=== PATIENT | male | born 1935 | race Native Hawaiian/Other Pacific Islander ===

== ENCOUNTER 2016-08-26 12:18 | Inpatient (IN) | payer MEDICARE, OTHER ==
[2016-08-26] MEDS ORDERED: Sodium Chloride 0.9% 1,000 ML IV STA (12:30)
--- NOTE | 2016-08-26 12:30 | ED PDOC ---
Arrival/HPI - General Time Seen by Provider: 08/26/16 12:23 Historian: Patient - Critical Care Critical Care Minutes: 90 minutes - History of Present Illness Narrative History of Present Illness (Text): 08/26/16 12:23 Corbin Zheng is an 81 year old male, whose past medical history include TIA and cardiac stents, who presents to the emergency department for apparent left- sided weakness noted by son. Patient was normal last night. According to the plastic frame inserter, patient said his left sided weakness which started around 07:00 this morning. Patient will not say when GI bleeding started. Patient is disoriented to time. On the phone, patient's son states that patient's weakness started 7 months ago. Patient's son called patinet at 07:00 this morning and when patient did not answer, Patient's son went to patient's house and found him laying on the floor, unable to get up. At present, Patient denies any pain. PMD: Dr. Christin Parson Symptom Onset: Gradual Symptom Course: Worsening Severity Level: Mild Activities at Onset: Light Context: Home Past Medical History - Provider Review Nursing Documentation Reviewed: Yes - Infectious Disease Hx of Infectious Diseases: None - Cardiac Hx Hypertension: Yes - Neurological HX Cerebrovascular Accident: Yes (recent, with L sided weakness) - Endocrine/Metabolic Hx Diabetes Mellitus Type 1: Yes - Musculoskeletal/Rheumatological Hx Falls: Yes - Genitourinary/Gynecological Other/Comment: BPH - Psychiatric Hx Substance Use: No - Surgical History Hx Carotid Endarterectomy: Yes - Anesthesia Hx Anesthesia Reactions: No Hx Malignant Hyperthermia: No - Suicidal Assessment Feels Threatened In Home Enviroment: No Family/Social History - Physician Review Nursing Documentation Reviewed: Yes Family/Social History: No Known Family HX Smoking Status: Former Smoker Hx Alcohol Use: Yes Hx Substance Use: No Allergies/Home Meds Allergies/Adverse Reactions: Allergies No Known Allergies Allergy (Verified 08/26/16 14:47) Home Medications: Home Meds Medication Instructions Recorded Confirmed Amlodipine Besylate 0 mg PO DAILY 03/02/16 08/26/16 Atorvastatin [Lipitor] 40 mg PO DAILY 03/02/16 08/26/16 Eltrombopag Olamine [Promacta] 75 mg PO DAILY 03/02/16 05/12/16 Lisinopril [Zestril] 0 mg PO 04/15/17 Review of Systems - Review of Systems Constitutional: Other (Left sided weakness) Eyes: absent: Vision Changes ENT: absent: Hearing Changes Respiratory: absent: SOB Cardiovascular: absent: Chest Pain Gastrointestinal: absent: Abdominal Pain Genitourinary Male: absent: Urinary Output Changes Musculoskeletal: absent: Back Pain, Neck Pain Skin: absent: Rash Neurological: Gait Changes (Unable to ambulate) Endocrine: absent: Diaphoresis Hemo/Lymphatic: absent: Easy Bleeding Physical Exam Vital Signs Reviewed: Yes Vital Signs Temp Pulse Resp BP Pulse Ox 08/26/16 14:44 86 18 92/42 L 08/26/16 14:40 93.7 F L 85 19 92/42 L 08/26/16 14:25 93.8 F L 85 16 103/40 L 08/26/16 12:29 97.9 F 86 18 119/90 97 Temperature: Afebrile Blood Pressure: Normal Pulse: Regular Respiratory Rate: Normal Appearance: Positive for: Well-Appearing, Non-Toxic, Comfortable Pain Distress: None Mental Status: Positive for: Alert and Oriented X 3 - Systems Exam Head: Present: Atraumatic, Normocephalic Pupils: Present: PERRL Extroacular Muscles: Present: EOMI Conjunctiva: Present: Other (conjunctival pallor) Mouth: Present: Moist Mucous Membranes Neck: Present: Normal Range of Motion Respiratory/Chest: Present: Clear to Auscultation, Good Air Exchange. No: Respiratory Distress, Accessory Muscle Use Cardiovascular: Present: Regular Rate and Rhythm, Normal S1, S2. No: Murmurs Abdomen: Present: Normal Bowel Sounds. No: Tenderness, Distention, Peritoneal Signs Rectal: Present: Other (Hematochezia) Back: Present: Normal Inspection Upper Extremity: Present: Other (mild drift in left arm ) Lower Extremity: Present: Edema (2+ Pitting edema), Other (Unable to raise left leg off bed) Neurological: Present: GCS=15, CN II-XII Intact, Speech Normal Skin: No: Normal Color (mottled skin) Psychiatric: Present: Alert, Oriented x 3, Normal Insight, Normal Concentration Medical Decision Making ED Course and Treatment: EKG: Ordered, reviewed, and independently interpreted the EKG. Rate : 86 BPM Rhythm : NSR Interpretation : Nonspecific ST and T wave abnormality. No STEMI. 08/26/16 13:02 Reviewed Radiology, Chest X-ray which shows improved right lower lobe opacity from prior on 05/09/16. 08/26/16 13:39 Chest X-ray: Creator : Rashad Hughes MD FINDINGS: LUNGS:Resolution right lower lobe infiltrate. Haziness retrocardiac region. PLEURA:Left pleural effusion. CARDIOVASCULAR: No radiographic findings to suggest acute or significant cardiovascular disease. OSSEOUS STRUCTURES:No significant abnormalities. VISUALIZED UPPER ABDOMEN:Normal. OTHER FINDINGS:None. IMPRESSION:Left lower lobe infiltrate/left pleural effusion. 08/26/16 13:[address] Dillard, who recommends getting platelets from patient. 08/26/16 13:46 Case discussed with assistant purchasing manager to admit patient to ICU. 08/26/16 13:52 Dr. Dillard at Patient's Bedside. 08/26/16 13:50 Cardiology paged for high troponin 08/26/16 14:[address] Jay, Consultative Sales Associate, who is aware and agrees with present patient plan. Patient is not a candidate for cardiac catheterization. 08/26/16 15:[address]: Creator : HEIDI MOLINA Dictator : Chago Barraza MD FINDINGS: HEMORRHAGE:No acute parenchymal, subarachnoid or extra-axial hemorrhage. BRAIN: Mild chronic white matter ischemic changes with more localized of chronic infarct right posterior and frontal and parietal region. . Chronic infarct right superior coronal radiata and inferior centrum semiovale. Small chronic right cerebellar infarct Re- demonstrated is a right frontal arachnoid cyst with overlying scalloping of the internal table of the right frontal calvarium unchanged. . Vascular calcifications unchanged. Small calcification along the right tentorium on may be dural base. Possibility tiny meningioma cannot be excluded. VENTRICLES: Moderate -significant generalized volume loss. CALVARIUM: Other than scalloping of a localized area of the inner table right frontal calvarium overlying the arachnoid cyst calvarium is otherwise intact. . Questionable right frontal scalp swelling PARANASAL SINUSES: Mild mucosal thickening noted within a multiple ethmoid air cells. Moderate mucosal thickening right maxillary antrum with questionable small fluid level. MASTOID AIR CELLS:Unremarkable as visualized. No inflammatory changes. OTHER FINDINGS:Bilateral cataract surgery again noted IMPRESSION: Limited motion degraded study. No acute parenchymal, subarachnoid or extra- axial hemorrhage. No acute intracranial hemorrhage. Chronic infarct changes right posterior frontal and parietal region. There is also a chronic appearing infarct in the right coronal radiata and inferior centrum semiovale. Stable appearing right frontal arachnoid cyst. Moderate to significant generalized volume loss. Questionable right frontal scalp swelling. - Critical Care Critical Care Minutes: 90 minutes - Lab Interpretations Lab Results: 08/26/16 13:03 08/26/16 13:03 Lab Results 08/26/16 13:03: WBC 43.7 H* D, RBC 1.85 L, Hgb 5.7 L* D, Hct 16.8 L*, MCV 90.8, MCH 30.8, MCHC 33.9, RDW 16.2 H, Plt Count 591 H, MPV 13.1 H, Gran # 39.77 H, Neutrophils % (Manual) 88 H, Band Neutrophils % 3 H, Lymphocytes % (Manual) 2 L , Monocytes % (Manual) 4, Metamyelocytes % 2, Myelocytes % 1, Platelet Evaluation High, Large Platelets Present, Giant Platelets Present, Polychromasia 1+, Hypochromasia 2+, Poikilocytosis (manual 1+, Anisocytosis ( manual) 1+, Ovalocytes 1+, PT 12.7 H, INR 1.18 H, APTT 32.7 H, Sodium 137, Potassium 5.8 H* D, Chloride 108 H, Carbon Dioxide 9 L D, Anion Gap 26 H, BUN 83 H, Creatinine 4.5 H, Est GFR ( Amer) 15, Est GFR (Non-Af Amer) 13, Random Glucose 168 H, Calcium 7.9 L, Total Bilirubin 0.4, AST 156 H, ALT 51, Alkaline Phosphatase 68, Troponin I 123.00 H* D, Total Protein 5.1 L, Albumin 2.4 L, Globulin 2.7, Albumin/Globulin Ratio 0.9 L, Blood Type O POSITIVE, Antibody Screen Negative, Crossmatch See Detail, BBK History Checked Patient has bt - RAD Interpretation Radiology Orders: 08/26/16 12:30 CHEST PORTABLE [RAD] Stat 08/26/16 13:12 HEAD W/O CONTRAST [CT] Stat - Medication Orders Current Medication Orders: Cefepime HCl (Maxipime 1gm) 100 mls @ 100 mls/hr IVPB Q12 YUVAL PRN Reason: Protocol Metronidazole (Flagyl) 100 mls @ 100 mls/hr IVPB Q8 YUVAL PRN Reason: Protocol Sodium Bicarbonate 75 meq/ (Sodium Chloride) 1,075 mls @ 75 mls/hr IV .[id number] YUVAL Vancomycin HCl (Vancomycin 1gm) 250 mls @ 167 mls/hr IVPB DAILY YUVAL PRN Reason: Protocol Stop: 08/26/16 16:30 Pantoprazole Sodium (Protonix Inj) 40 mg IVP Q12 YUVAL Discontinued Medications Albuterol Sulfate (Albuterol 0.5% Inhal Mariluz (5 Mg/ Ml) 20 Ml) 10 mg IH STAT STA Stop: 08/26/16 13:41 Last Admin: 08/26/16 14:42 Dose: 10 MG Dextrose (Dextrose 50% Inj) 50 ml IVP STAT STA Stop: 08/26/16 13:39 Last Admin: 08/26/16 14:40 Dose: 50 ML IVP Administration Document 08/26/16 14:40 HI (Rec: 08/26/16 14:41 [place] [id number]) Charges for Administration # of IVP Administrations 1 Sodium Chloride (Sodium Chloride 0.9%) 1,000 mls @ 999 mls/hr IV .Q1H1M STA Stop: 08/26/16 13:30 Last Admin: 08/26/16 13:00 Dose: 999 MLS/HR eMAR Start Stop Document 08/26/16 13:00 HI (Rec: 08/26/16 13:00 [place] [id number]) Intravenous Solution Start Date 08/26/16 Start Time 13:00 Pantoprazole Sodium (Protonix 40mg Ivpb) 100 mls @ 20 mls/hr IVPB .Q5H YUVAL Pantoprazole Sodium (Protonix 40mg Ivpb) 100 mls @ 10 mls/hr IVPB .Q10H YUVAL Last Admin: 08/26/16 14:42 Dose: 10 MLS/HR eMAR Start Stop Document 08/26/16 14:42 HI (Rec: 08/26/16 14:43 [place] [id number]) Intravenous Solution Start Date 08/26/16 Start Time 14:43 Vancomycin HCl (Vancomycin 1gm) 250 mls @ 167 mls/hr IVPB DAILY YUVAL PRN Reason: Protocol Insulin Human Regular (Humulin R) 10 units IV STAT STA Stop: 08/26/16 13:39 Last Admin: 08/26/16 14:41 Dose: 10 UNITS Subcutaneous Admin in ER Document 08/26/16 14:41 HI (Rec: 08/26/16 14:41 HI [id number]) Injection Site MAR Injection Site Left Abdomen eMAR Start Stop Document 08/26/16 14:41 HI (Rec: 08/26/16 14:41 HI [id number]) Intravenous Solution Start Date 08/26/16 Start Time 14:41 Pantoprazole Sodium (Protonix Inj) 80 mg IVP STAT STA Stop: 08/26/16 13:13 Last Admin: 08/26/16 14:42 Dose: 80 MG IVP Administration Document 08/26/16 14:42 HI (Rec: 08/26/16 14:42 HI [id number]) Charges for Administration # of IVP Administrations 1 - Scribe Statement The provider has reviewed the documentation as recorded by the Daniaibdwain Stanford Provider Scribe Attestation: All medical record entries made by the Scribe were at my direction and personally dictated by me. I have reviewed the chart and agree that the record accurately reflects my personal performance of the history, physical exam, medical decision making, and the department course for this patient. I have also personally directed, reviewed, and agree with the discharge instructions and disposition. Disposition/Present on Arrival - Present on Arrival Any Indicators Present on Arrival: Yes History of DVT/PE: No History of Uncontrolled Diabetes: Yes Urinary Catheter: No History Surgical Site Infection Following: None - Disposition Have Diagnosis and Disposition been Completed?: Yes Diagnosis: GI bleed, Hyperkalemia, [place]YS[place] (acute kidney injury), Elevated troponin Disposition: HOSPITALIZED Disposition Time: 14:15 Patient Problems: Current Active Problems Problem Status Diagnosed [place]YS[place] (acute kidney injury) Acute Elevated troponin Acute GI bleed Acute Hyperkalemia Acute Condition: CRITICAL
[2016-08-26 13:10] LABS: MEAN CELL VOLUME 90.8 fL (80.0-105.0); MEAN CORPUSCULAR HEMOGLOBIN 30.8 pg (25.0-35.0); MEAN CORPUSCULAR HGB CONC 33.9 g/dl (31.0-37.0); MEAN PLATELET VOLUME 13.1 fl (7.0-11.0); PLATELET COUNT 591 [, 10^3/uL] (120.0-450.0); RED CELL DISTRIBUTION WIDTH 16.2 % (11.5-14.5)
[2016-08-26] MEDS ORDERED: Pantoprazole 40mg/100ml IVPB 100 ML IVPB SCH ×2 (13:15→14:04)
[2016-08-26 13:17] LABS: ADD MANUAL DIFF? YES; ALB/GLOB RATIO 0.9 (1.1-1.8); BILIRUBIN,TOTAL 0.4 mg/dL (0.2-1.3); CALCIUM 7.9 mg/dL (8.4-10.5); INR 1.18 (0.93-1.08); PARTIAL THROMBOPLASTIN TIME 32.7 Seconds (23.7-30.8); TOTAL PROTEIN 5.1 g/dL (5.8-8.3); WHITE BLOOD COUNT 43.7 [, 10^3/ul] (4.5-11.0)
[2016-08-26 13:18] LABS: HEMATOCRIT 16.8 % (42.0-52.0)
[2016-08-26 13:19] LABS: POTASSIUM 5.8 mmol/L (3.6-5.0)
--- NOTE | 2016-08-26 13:27 | RAD ---
HISTORY: Weakness. Technique: Single view portable semi erect @ 12:53. COMPARISON: 05/09/2016 FINDINGS: LUNGS: Resolution right lower lobe infiltrate. Haziness retrocardiac region. PLEURA: Left pleural effusion. CARDIOVASCULAR: No radiographic findings to suggest acute or significant cardiovascular disease. OSSEOUS STRUCTURES: No significant abnormalities. VISUALIZED UPPER ABDOMEN: Normal. OTHER FINDINGS: None. IMPRESSION: Left lower lobe infiltrate/left pleural effusion.
[2016-08-26] MEDS ORDERED: Dextrose 50% SYRINGE Inj (50 ml) IVP STA (13:38)
[2016-08-26] MEDS ORDERED: Insulin Regular 1 UNITS/0.01 ML ML IV STA (13:38)
[2016-08-26] MEDS ORDERED: Albuterol 0.5% Inhal Sol (5 mg/ ml) 20 ml IH STA (13:40)
[2016-08-26 14:02] LABS: ANISOCYTOSIS 1+; BAND 3 % (0-2); GIANT PLATELETS PRESENT; GRAN # 39.77 (1.4-6.5); HYPOCHROMIA 2+; LARGE PLATELETS PRESENT; METAMYELOCYTE 2 %; MYELOCYTE 1 %; NEUTROPHIL 88 % (50.0-70.0); PLATELET ESTIMATE HIGH (NORMAL); POIKILOCYTOSIS 1+; POLYCHROMASIA 1+
[2016-08-26 14:03] LABS: OVALOCYTES 1+
--- NOTE | 2016-08-26 14:10 | CT ---
PROCEDURE: CT HEAD WITHOUT CONTRAST. HISTORY: fall? COMPARISON: Comparison made with CT scan brain 05/09/2016. TECHNIQUE: Axial computed tomography images were obtained through the head/brain without intravenous contrast. Radiation dose: Total exam DLP = 1704.39 MGy-cm. This CT exam was performed using one or more of the following dose reduction techniques: Automated exposure control, adjustment of the mA and/or kV according to patient size, and/or use of iterative reconstruction technique. Note that the examination is limited by motion artifact. FINDINGS: HEMORRHAGE: No acute parenchymal, subarachnoid or extra-axial hemorrhage. BRAIN: Mild chronic white matter ischemic changes with more localized of chronic infarct right posterior and frontal and parietal region. . Chronic infarct right superior coronal radiata and inferior centrum semiovale. Small chronic right cerebellar infarct Re- demonstrated is a right frontal arachnoid cyst with overlying scalloping of the internal table of the right frontal calvarium unchanged. . Vascular calcifications unchanged. Small calcification along the right tentorium on may be dural base. Possibility tiny meningioma cannot be excluded. VENTRICLES: Moderate -significant generalized volume loss. CALVARIUM: Other than scalloping of a localized area of the inner table right frontal calvarium overlying the arachnoid cyst calvarium is otherwise intact. . Questionable right frontal scalp swelling PARANASAL SINUSES: Mild mucosal thickening noted within a multiple ethmoid air cells. Moderate mucosal thickening right maxillary antrum with questionable small fluid level. MASTOID AIR CELLS: Unremarkable as visualized. No inflammatory changes. OTHER FINDINGS: Bilateral cataract surgery again noted IMPRESSION: Limited motion degraded study. No acute parenchymal, subarachnoid or extra-axial hemorrhage. No acute intracranial hemorrhage. Chronic infarct changes right posterior frontal and parietal region. There is also a chronic appearing infarct in the right coronal radiata and inferior centrum semiovale. Stable appearing right frontal arachnoid cyst. Moderate to significant generalized volume loss. Questionable right frontal scalp swelling.
--- NOTE | 2016-08-26 14:34 | CP.PCM.CON ---
<Izabela Luis - Last Filed: 08/26/16 17:24> History of Present Illness - History of Present Illness History of Present Illness: PGY-[address] 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 Pt took Plavix today. Patient's son called patient at 07: 00 this morning and when patient did not answer, Patient's son went to patient' s house and found him laying on the floor, unable to get up. At present, Patient denies any pain. Son denies pt had ever complaints of bloody bowel movement. Son found pt disoriented to time. Questionable fall. Pt is AAOx3 at baseline. Pt complained of sudden worsening L sided weakness 1 week ago, with increased gait disturbance, with questionable falls. Yesterday, son saw pt at 10AM and noted worsened L sided weakness, new-onset slurring of speech, and increased gait disturbance. Pt was able to carry out all ADLs, but with great difficulty due to increased weakness. Denies choking. At ED arrival: VS t 97.9, H 86, 119/90, 97% RA K 5.8 BUN 83/ Cre 4.5 (baseline 3) Creatinine clearance (calc) 10 Trops 123 A:G 0.[address] and T wave abnormality. No STEMI. CXR shows Left pleural effusion. Right lower lobe infiltrate. RLL opacity improves from prior on 05/09/16. CT head negative for hemorrhage. Old stroke - posterior R frontal/parietal/R coronal radiata/inferior centrum semiovale. R frontal arachnoid cyst. R frontal scalp swelling. ROS - limited to son's account. Denies F/C, CP, SOB, N/V/D/C, dysuria, hemenesis , hematuria.n (+) Worsening L weakness (+) slurr speech PMH - CAD s/p cardiac stent - CVA with left sided weakness, 2014 - Non-IDDM - Chronic ITP x 2 years - BPH - PAD - Hx falls PSH - carotid endarterectomy - L Femoral stents FH - Mom - 92 Alzheimer. No hx cancer SH - 1 ppd x 30 years; quits 20 years - Beer 3 times a week, last drink with son yesterday - Denies illicit drug use - lives alone at [facility] - ambulate with a walker and cane - Dependent ADLs and iADLs - go [facility] M to F, picked up by [facility] - [facility] Med : metoprolol tartrate 50 mg bid Amlodipine 10mg daily promacta 75 mg daily for chronic ITP Vit D3 1000u daily Lipitor 40mg daily Plavix 75 daily Lisinopril 2.5 mg daily STOP ASA 81 on April 2016 PMD: Dr. Wan Outpt Heme: Dr. Jonel Hernandez Past Patient History - Infectious Disease Hx of Infectious Diseases: None - Past Medical History & Family History Past Medical History?: Yes - Past Social History Smoking Status: Former Smoker - CARDIAC Hx Hypertension: Yes - NEUROLOGICAL HX Cerebrovascular Accident: Yes (recent, with L sided weakness) - ENDOCRINE/METABOLIC Hx Diabetes Mellitus Type 1: Yes - MUSCULOSKELETAL/RHEUMATOLOGICAL Hx Falls: Yes - GENITOURINARY/GYNECOLOGICAL Other/Comment: BPH - PSYCHIATRIC Hx Substance Use: No - SURGICAL HISTORY Hx Carotid Endarterectomy: Yes - ANESTHESIA Hx Anesthesia Reactions: No Hx Malignant Hyperthermia: No Meds Allergies/Adverse Reactions: Allergies Allergy/AdvReac Type Severity Reaction Status Date / Time No Known Allergies Allergy Verified 08/26/16 14:47 - Medications Medications: Current Medications Pantoprazole Sodium (Protonix 40mg Ivpb) 100 mls @ 10 mls/hr IVPB .Q10H YUVAL Physical Exam - Constitutional Appears: Confused - Head Exam Head Exam: NORMOCEPHALIC Additional comments: Slight swelling R frontal area. No ecchymosis, abrasion, bleed. - Eye Exam Eye Exam: Normal appearance, PERRL Pupil Exam: NORMAL ACCOMODATION - ENT Exam ENT Exam: Mucous Membranes Moist - Neck Exam Neck exam: Negative for: Meningismus - Respiratory Exam Respiratory Exam: Clear to Auscultation Bilateral, Wheezes, NORMAL BREATHING PATTERN - Cardiovascular Exam Cardiovascular Exam: REGULAR RHYTHM, +S1, +S2 - GI/Abdominal Exam GI & Abdominal Exam: Hyperactive Bowel Sounds, Soft. absent: Distended, Rigid - Rectal Exam Rectal Exam: Black Stool (Melena. ) Additional comments: External hemorroid. no fissure. moderate rectal tone. prostate soft - Extremities Exam Extremities exam: Positive for: normal capillary refill, pedal edema (L > R, scars along L thigh and leg), pedal pulses present - Back Exam Back exam: absent: CVA tenderness (L), CVA tenderness (R) - Neurological Exam Additional comments: Response to son's voice, able to follow commands Slurred speech L hemineglect Motor 3/5 UE and LE Sensory exam limited by - Psychiatric Exam Psychiatric exam: Flat Affect - Skin Skin Exam: Dry, Mottled Additional comments: ecchymosis L arm Results - Vital Signs Recent Vital Signs: Last Vital Signs Temp 93.8 F L 08/26/16 14:25 Pulse 85 08/26/16 14:25 Resp 16 08/26/16 14:25 BP 103/40 L 08/26/16 14:25 Pulse Ox 97 08/26/16 12:29 - Labs Result Diagrams: 08/26/16 13:03 08/26/16 13:03 Labs: Laboratory Results - last 24 hr 08/26/16 13:03 WBC 43.7 H* D RBC 1.85 L Hgb 5.7 L* D Hct 16.8 L* MCV 90.8 MCH 30.8 MCHC 33.9 RDW 16.2 H Plt Count 591 H MPV 13.1 H Gran # 39.77 H Neutrophils % (Manual) 88 H Band Neutrophils % 3 H Lymphocytes % (Manual) 2 L Monocytes % (Manual) 4 Metamyelocytes % 2 Myelocytes % 1 Platelet Evaluation High Large Platelets Present Giant Platelets Present Polychromasia 1+ Hypochromasia 2+ Poikilocytosis (manual 1+ Anisocytosis (manual) 1+ Ovalocytes 1+ PT 12.7 H INR 1.18 H APTT 32.7 H Sodium 137 Potassium 5.8 H* D Chloride 108 H Carbon Dioxide 9 L D Anion Gap 26 H BUN 83 H Creatinine 4.5 H Est GFR ( Amer) 15 Est GFR (Non-Af Amer) 13 Random Glucose 168 H Calcium 7.9 L Total Bilirubin 0.4 AST 156 H ALT 51 Alkaline Phosphatase 68 Troponin I 123.00 H* D Total Protein 5.1 L Albumin 2.4 L Globulin 2.7 Albumin/Globulin Ratio 0.9 L Blood Type O POSITIVE Antibody Screen Negative Crossmatch See Detail BBK History Checked Patient has bt Assessment & Plan - Assessment and Plan (Free Text) Plan: Assessments - Main issue for ICU: Active GI bleed, likely upper, likely from Plavix vs ITP. Unlikely from trauma. - NSTEMI, suspected - AMS - metabolic encephalopathy due to electrolytes vs sepsis; suspected stroke - Sepsis - PNA vs UTI vs Colitis - Suspected new stroke - new slur speech, L hemineglect, suddened worsening of L weakness - Suspected Rhabdomyolysis - prolonged lying on fall - ALLYSON on CKD - prerenal vs intrinsic vs postrenal; Gap metabolic acidosis likely from uremia - R/O DVT Plan Neuro - neuro check q1 - A1C, lipid, PT/OT/swallow, neuro consult Cardio - NSTEMI - not candidate for catherterization. Not candidate for heparin drip for GI bleed - Trend cardiac enzyme, cbc, cmp, mg, phos, coags - AM EKG - Cardio consult Pulm - Left pleural effusion. Right lower lobe infiltrate. - Duoneb as needed. - Pulm consult GI - NPO - 2p RBC - Protonix IV BID - C.diff toxin and antigen - serial H/H - Endoscopy after stablization - GI consult - Chest, abdomen, pelvis w.o contrast for PNA r/o colitis Nephro - Unlikely post-renal - rodrigez clear, no blood. I/O - Bicarb 75meq with 1/2 NS @ 75 Endo - Hx IDDM - ISSS-low. Accu-check ACHS - hyperK s/p D50, insulin, albuterol Heme - Per heme, cancel platelet - Hx ITP - LE dupplers b/l Infectious - flagyl, cefepime, Vancomycin - trend Lactate, CBC - On yunior collins - Barrios culture sent - MRSA screen - tylenol PRN Prophlaxis - SCD - Protonix GI bleed dose S/R/D/w Dr. Mireles - Date & Time Date: 08/26/16 Time: 16:18 <Hung Mireles - Last Filed: 08/26/16 17:46> Meds - Medications Medications: Current Medications Acetaminophen (Tylenol 650 Mg Supp) 650 mg RC Q4H PRN PRN Reason: Fever >100.4 F Cefepime HCl (Maxipime 1gm) 100 mls @ 100 mls/hr IVPB Q12 YUVAL PRN Reason: Protocol Metronidazole (Flagyl) 100 mls @ 100 mls/hr IVPB Q8 YUVAL PRN Reason: Protocol Last Admin: 08/26/16 16:20 Dose: 100 mls/hr Sodium Bicarbonate 75 meq/ (Sodium Chloride) 1,075 mls @ 75 mls/hr IV .[id number] YUVAL Last Admin: 08/26/16 15:35 Dose: 75 mls/hr Insulin Human Lispro (Humalog Low) 0 units SC ACHS YUVAL PRN Reason: Protocol Pantoprazole Sodium (Protonix Inj) 40 mg IVP Q12 YUVAL Results - Vital Signs Recent Vital Signs: Last Vital Signs Temp 94.5 F L 08/26/16 17:28 Pulse 102 H 08/26/16 17:28 Resp 17 08/26/16 17:28 BP 100/49 L 08/26/16 17:28 Pulse Ox 97 08/26/16 15:00 - Labs Result Diagrams: 08/26/16 13:03 08/26/16 13:03 Attending/Attestation - Attestation I have personally seen and examined this patient.: Yes I have fully participated in the care of the patient.: Yes I have reviewed all pertinent clinical information: Yes Notes (Text): 08/26/16 17:46 The patient was seen and examined at the bedside. Patient care was discussed with resident Medical records, lab studies, and imaging were reviewed and management issues were discussed and formulated. Last 24H events reviewed. Agree with above treatment plans as outlined in 's note with addition of the following: NSTEMI \ GI bleed \ Blood loss anemia \ ALLYSON on CKD \ Elevated LFT \ PNA \ Sepsis \ ITP \ ro CVA -hemodynamic monitoring to maintain MAP>65; currently stable -f\u serial CE and ECG; first set trop 123, pt is currently chest pain free -f\u Echo -cardiology team eval -no asa, plavix or heparin due to active GI bleed -no bblocker or Juwan\Arb as labile B\P -No statin as LFT elevated -o2 supplementation to maintain Spo2>90 Pao2>60; currently comfortable on NC -CXR reviewed and Left Lower Lobe opacification noted -start broad spectrum Abx with vanco, cefepime , flagyl; f\u cultures and cdiff -consider ID team eval -f\u Bun\Cr and U\o; start 1/2NS with 75meq bicarb for isotonic, low chlotide IVF in setting of sepsis -consider renal team eval -NPO diet and aspiration precautions -PPI IV q12h -GI team eval appreciated -f\u serial LFT -f\u serial H\H; monitor for bleeding -transfuse 2 PRBC -Heme\Onc evaluation as pt has a h\o ITP -hyperkalemia treatment given in ED , will f\u repeat K+ -resume ASA\Plavix when ok by GI team -CT C\A\P once stable -CT head shows no acute bleed , old CVA area noted (pls see full read in EMR) -neurology eval -f\u LE duplex to ro DVT -f\u repeat labs -DVT \ PUD prophylaxis DW ED team and GI team and heme\onc team CCM eval time >55min
[2016-08-26] MEDS ORDERED: Vancomycin 1gm in NS 250ml 250 ML IVPB SCH ×2 (15:00→15:01)
[2016-08-26] MEDS ORDERED: Cefepime IV 2 gm in NS 100 ML IVPB STA (15:41)
--- NOTE | 2016-08-26 15:48 | CON ---
DATE: 08/26/2016 REASON FOR CONSULTATION: GI bleeding. Time spent 90 minutes. HISTORY OF HISTORY OF PRESENT ILLNESS: This is an 81-year-old patient with a past medical history of status post cerebrovascular accident with left-sided weakness, peripheral vascular disease, status p ost surgery bypass, history of coronary artery disease status post stent placement, last in October, on Plavix; history of ITP, initially was on steroids, now on Promacta; who was found by his son in a poo l of blood and stool today and was brought to the Emergency Room. This patient lives alone in his [facility] and his son visits him at least 3 or 4 times in a week. He moves around in the house with a walke r. The patient is being followed by Dr. Jonel Hernandez, a nurse practitioner physicians assistant, for the ITP. No vomiting blood. N o black stool. He did not complain of any abdominal pain. The patient has been followed regularly b y his primary doctor, Dr. Christin Parson. Other past medical history is significant for diabetes mellitus, carotid endarterectomy, peripheral a rterial disease, coronary artery disease, status post CVA. SOCIAL HISTORY: Denies smoking, he was ex-smoker. Social alcohol use before. No drug use. ALLERGIES: No known drug allergies. REVIEW OF SYSTEMS: Limited. Positive as above. All other systems reviewed. PHYSICAL EXAMINATION: GENERAL: The patient is lying on the bed, not in acute distress. VITAL SIGNS: Temperature 97.8, pulse 86, blood pressure 119/90, O2 saturation 97. HEENT: Atraumatic, anicteric. There is a facial droop noticed. NECK: Supple. HEART: S1, S2 heard. LUNGS: Bilateral air entry present. ABDOMEN: Soft. There is no tenderness. EXTREMITIES: No cyanosis, no clubbing, and previous bypass surgical scar seen. RECTAL: Examination revealed maroon stool, clotted. The patient has left-sided weakness. The patient's son was at bedside at the time of examination. LABORATORY DATA: Hemoglobin 5.7, hematocrit 16.8, WBC 43.7, platelet count 561. Chemistry showed po tassium 5.8, BUN 83, creatinine 4.5. AST 156. Troponin is elevated to 123. IMPRESSION: This is an 81-year-old patient, admitted with GI bleeding, maroon stool. The son who wa s at bedside at the time of examination. The problems include: 1. GI bleeding. The exact etiology is unclear, but in the setting Plavix, with the patient on Promact a significantly elevated platelet count; the differential diagnoses include peptic ulcer disease, eso phageal ulcerations, neoplasia, colonic source also to be considered with diverticulosis, angiodyspla manuel. Ischemic colitis also should to be considered as a differential diagnosis, especially in the se tting of an increased WBC count. 2. Rule out cerebrovascular accident. The patient's son mentioned that his mental status and immobil ity had decreased significantly in the last 2 weeks, with the history of falls in between. 3. Idiopathic thrombocytopenic purpura. The patient on Promacta and patient's platelet count before was about 61 in June and it has come up to 591 and the patient is on Promacta. 4. Rule out sepsis. White cell count is 43,004. Rule out Clostridium difficile with dehydration. 5. Acute kidney injury, probably due to prerenal on top of chronic kidney disease. Baseline the crea tinine was round 3, now is 4.5. RECOMMENDATIONS: 1. Followup of the hemoglobin, hematocrit, and transfuse at least 2 units of packed RBCs to keep co unt up and close followup. 2. Hyperkalemia. Potassium is 5.8. Being treated. Need to follow closely, especially in the sett ing of the transfusion. 3. The patient on Plavix, with increased count of 567 may be dysfunctional platelets. May benefit f rom platelet transfusion, especially in the setting of platelet dysfunction. Another concern about missael jaffe platelets is that the patient is on Promacta for ITP. The count has increased before. He would b enefit from a hematologic evaluation. 4. Rule out sepsis. Barrios cultures, consider broad spectrum antibiotics. We will also get a CT of t alannah abdomen and pelvis, with no contrast, to further evaluate./ 5. Would consider bleeding scan when the patient is more optimized. 6. The patient would consider NG tube lavage to rule out any active bleeding source. They woul d tend to consider upper GI endoscopy when the patient is more optimized. I discussed at length with the patient's son, the ship engines operating engineer, and also the Emergency Room physician and time also spent coordinating the care of the patient. We will continue to closely follow up his care and suggest further management based on the clinical course. Eleonora Dillard MD cc: [id number] TT: 08/26/2016 15:47:37 Confirmation # [id number] Dictation # [id number] ln
[2016-08-26] MEDS: metroNIDAZOLE IV 500 mg/100 ml 100 ML IVPB SCH ×2 (16:20→23:20)
[2016-08-26 17:38] VITALS: BMI 24.2
[2016-08-26] MEDS ORDERED: Pneumococcal 23-Valent Vaccine IM ONE (17:38)
--- NOTE | 2016-08-26 18:54 | CON ---
DATE: 08/26/2016 REASON FOR CONSULTATION: Acute myocardial infarction and elevated troponin. HISTORY OF PRESENT ILLNESS: The patient is an 81-year-old Bengali male who has a history of hypertens ion, history of old CVA with residual left hemiparesis, history of coronary artery disease status pos t stenting to the circumflex artery in October of last year. At that time, the patient was found to hav e chronic total occlusion of the right coronary artery that could not be opened at that time. The pa haylee has history of chronic renal insufficiency, history of paroxysmal atrial fibrillation, history of thrombocytopenia. He was admitted because of rectal bleeding. According to the son, who visits h is father 3 times a week, he went to see him and found him on the floor, unresponsive in a pool of bl ack stool with left-sided weakness and inability to verbalize. The patient lives by himself; however he is being picked up by [employer] [place] team to go to the center 5 days a week and the son antoni daniel frequent calls to him and 3 visits per week. It is not clear to son how long his father was on the floor. SOCIAL HISTORY: The patient lives by himself. MEDICATIONS: IV Flagyl, IV cefepime 1 gram twice a day, Protonix 40 mg intravenous twice a day, sodi um bicarbonate infusion. REVIEW OF SYSTEMS: No reported hematemesis. No reported hypotension since patient's presentation. The patient cannot answer appropriately if he had any chest pain. PAST MEDICAL HISTORY: 1. History of peripheral vascular disease, status post peripheral stenting and left femoropopliteal bypass surgery, history of coronary artery disease, status post circumflex artery stenting in October of last year with known total occlusion of the right coronary artery. 2. Chronic renal insufficiency. 3. History of idiopathic thrombocytopenic purpura. 4. History of carotid endarterectomy 5. Paroxysmal atrial fibrillation. 6. History of cerebrovascular accident with residual left hemiparesis. PHYSICAL EXAMINATION: GENERAL: The patient is an elderly male who is lethargic and does not appear to be in respiratory di stress. VITAL SIGNS: Blood pressure 96/55, heart rate 97, temperature 93.8, respirations 17. HEENT: Loss of left-sided gaze, pale conjunctivae. CHEST: Diminished breath sounds over the bases. HEART: S1, S2 regular. ABDOMEN: Soft. EXTREMITIES: 2+ left leg edema. LABORATORY DATA: Hemoglobin and hematocrit 5.7 and 16.8, white count 43.7, platelet count 591,000. INR is 1.18, PTT 32.7. SMA-7: Sodium 137, potassium 5.8, chloride 108, CO2 9, glucose 168, BUN 83, potassium 4.5. Troponin is 123. EKG revealed sinus rhythm at a rate of 86, nonspecific ST-T wave ch anges with prolonged QT interval. Head CT scan without contrast revealed chronic infarct and changes in the right posterior frontal and parietal regions. There is also appearing infarct in the left co oly radiata and inferior Centrum semiovale. Stable appearing right frontal arachnoid cyst. ASSESSMENT: 1. Acute gastrointestinal bleeding and significant anemia. 2. Worsening renal insufficiency and hyperkalemia. 3. Rule out underlying sepsis. 4. Rule out acute cerebrovascular accident. 5. An acute myocardial infarction cannot be completely excluded. 6. Rule out left leg deep venous thrombosis and the possibility of pulmonary embolus. 7. History of paroxysmal atrial fibrillation. RECOMMENDATIONS: The patient will be observed in ICU. The case was discussed with both in the ER te am as well as the medical billing supervisor. The patient is not a suitable candidate for either antiplatelet or anticoagulation therapy and any invasive cardiac workup will not be justified at this acute state where the patient is actively bleeding and there is a possibility of acute stroke. Continue current IV Flagyl, IV cefepime, type and crossmatch for possible packed RBC transfusion. GI consult as well as nephrology consult. Repeat head CT scan without contrast and also obtain venous Doppler of the lower extremities. Overall, prognosis is poor and was discussed with the patient's so n at the bedside. Carl Jay MD cc: [id number] TT: 08/26/2016 18:53:07 Confirmation # [id number] Dictation # [id number] alberto
--- NOTE | 2016-08-26 19:11 | CT ---
EXAM: CT Chest Without Intravenous Contrast CLINICAL HISTORY: 81 years old, male; Condition or disease; Intestinal condition; Gastronenteritis or colitis; Lung condition and disease; Pleural effusion and pneumonia; Other: Pleural effusion 08/26/16 cxr; Bacterial; Additional info: Pna, RO colitis TECHNIQUE: Axial computed tomography images of the chest without intravenous contrast. This CT exam was performed using one or more of the following dose reduction techniques: automated exposure control, adjustment of the mA and/or kV according to patient size, and/or use of iterative reconstruction technique. Coronal and sagittal reformatted images were created and reviewed. COMPARISON: CT CHEST W/O CONTRAST 11/07/2015 7:07:35 PM FINDINGS: Artifacts: Motion artifact degrades image quality. Lungs: Trachea and main bronchi are patent. There are moderately large bilateral pleural effusions left greater than right. There is apical pleural-parenchymal scarring bilaterally right greater than left. There are asymmetric groundglass opacities with multiple small blebs at the right apex. There are occasional small blebs at the left apex. Patchy groundglass opacities are present in both upper lobes. There are patchy nodular opacities in the left upper lobe and right lower lobe. There is compressive atelectasis at both lung bases. Pleural space: See above. Heart: The heart is mildly enlarged. There are coronary calcifications. Calcifications in the aorta and great vessels. Aorta and main pulmonary artery are normal in caliber. Mediastinum: There are calcified mediastinal nodes. There is shotty noncalcified nodes.Samantha are not optimally evaluated without contrast material. The esophagus is distended with fluid and debris. Gastroesophageal junction is open. Thyroid: There are bilateral thyroid nodules with calcification. Similar findings were seen on the prior study. Bones/joints: Bony structures are osteopenic.There are degenerative changes in the osseus structures. Motion limits evaluation of the osseous structures. Soft tissues: unremarkable Vasculature: See above. Lymph nodes: See above. Upper abdomen: Refer to following report for abdominal findings IMPRESSION: Moderately large bilateral pleural effusions with atelectatic changes bilaterally; asymmetric bilateral airspace disease with nodular component, followup in 6-8 weeks following therapy suggested to document resolution; dilated fluid-filled esophagus raises the possibility of reflux and possible aspiration; cardiomegaly and atherosclerotic disease; thyroid nodules, similar findings seen on prior study Additional findings as described above. EXAM: CT Abdomen and Pelvis Without Intravenous Contrast CLINICAL HISTORY: 81 years old, male; Condition or disease; Intestinal condition; Gastronenteritis or colitis; Lung condition and disease; Pleural effusion and pneumonia; Other: Pleural effusion 08/26/16 cxr; Bacterial; Additional info: Pna, RO colitis TECHNIQUE: Axial computed tomography images of the abdomen and pelvis without intravenous contrast. This CT exam was performed using one or more of the following dose reduction techniques: automated exposure control, adjustment of the mA and/or kV according to patient size, and/or use of iterative reconstruction technique. Coronal and sagittal reformatted images were created and reviewed. EXAM DATE/TIME: 08/26/2016 3:43 PM COMPARISON: CT - There are no prior studies for comparison. FINDINGS: Lower thorax: Refer to prior report for chest findings ABDOMEN: Liver: Streak limits evaluation of the liver. Gallbladder and bile ducts: Gallbladder is distended. There are multiple small stones. Common bile duct is prominent. Pancreas: Pancreas is atrophic. Spleen: Streak limits evaluation of the spleen. Adrenals: unremarkable Kidneys and ureters: There is a left renal cyst.Kidneys and ureters are otherwise unremarkable. Stomach and bowel: Distal esophagus is distended with fluid. Gastroesophageal junction is open. Stomach is distended with fluid and debris. There is an air-fluid level. Rotation is normal. Small bowel is mildly distended with fluid and air. There are scattered air-fluid levels. Streak and motion limiting evaluation of the ileocecal region. Terminal ileum is unremarkable. Appendix is difficult to identify. Colon is incompletely distended which limits evaluation. There is radiopaque material in the rectum. There is distal rectal wall thickening. Appendix: See above. PELVIS: Bladder: Bladder is empty. There is a Gunter catheter. There is bladder wall thickening. Reproductive: The prostate is enlarged. There is prominence of the seminal vesicles. ABDOMEN and PELVIS: Intraperitoneal space: There is no free air. There is no free air. There is minimal fluid in the left colic gutter. Bones/joints: Bony structures are osteopenic.There are degenerative changes in the osseus structures. Soft tissues: There is body wall edema. Vasculature: There is a focal infrarenal abdominal aortic aneurysm 3 cm in maximal dimension. There is no leak. Lymph nodes: There is shotty para-aortic adenopathy. IMPRESSION: Limited by streak and motion; gallstones with prominent common bile; no acute solid visceral abnormality; mild ileus, no obstruction; possible proctitis; 3 cm infrarenal abdominal aortic aneurysm, no leak Additional findings as described above.
--- NOTE | 2016-08-26 19:37 | US ---
HISTORY: Leg pain and swelling. Evaluate for DVT PHYSICIAN(S): Bashir Mejia MD. TECHNIQUE: Duplex sonography and color-flow Doppler with graded compression were used to evaluate the deep venous systems of both lower extremities. FINDINGS: The visualized deep venous systems of both lower extremities are sonographically normal and compressible. Normal wave forms and augmentation are seen. There is no sonographic evidence for deep venous thrombosis in the visualized segments of both lower extremities. IMPRESSION: No sonographic evidence for deep venous thrombosis in the visualized segments of both lower extremities.
--- NOTE | 2016-08-26 20:01 | CON ---
DATE: 08/26/2016 REFERRING PHYSICIAN: Dr. Myers. REASON FOR CONSULT: Shortness of breath, pulmonary infiltrates, admitted with multiorgan failure, se bert gastrointestinal bleed with hemoglobin down to 5, being admitted to the intensive care unit. HISTORY OF PRESENT ILLNESS: This is an 81-year-old gentleman with a past medical history significant for cerebrovascular accident in the remote past, coronary artery disease, history of coronary stent, diabetes, history of idiopathic thrombocytopenic purpura in the remote past with thrombocytopenia, h as been on medications and has now thrombocytosis. The patient's found him lying on the floor face d own, covered with black tarry stool. Apparently the patient's son called him, and when the patient d id not answer, he came to the house. Presently, he is lying in the bed, arousable, follows simple co mmands, but confused. Found to have a severe anemia, rectal bleed. Being transfused and IV fluids a re being given and transferred to the intensive care unit. PAST MEDICAL HISTORY: Idiopathic thrombocytopenic purpura seen by hematology; history of cerebrovas cular accident with some residual, coronary artery disease, history of coronary stent, diabetes, ty gn prostatic hypertrophy. FAMILY HISTORY: Positive for Alzheimer type dementia. SOCIAL HISTORY: He stopped smoking many years ago. He does drink 3 beers a week kind of thing. ALLERGIES: None known. MEDICATIONS: Outpatient he has been on metoprolol and amlodipine. Also on medication 75 mg, P lavix 75 mg daily, lisinopril 2.5 mg daily and aspirin. Presently on Flagyl, insulin coverage, cefep kari, Protonix, and IV fluids with bicarbonate. REVIEW OF SYSTEMS: He is awake, alert, confused, mild cough and shortness of breath. No chest pain, no nausea or vomiting at the present time. Does have melena. No leg swelling. PHYSICAL EXAMINATION: GENERAL: He is lying in the bed, awake, alert, but confused. VITAL SIGNS: Temperature is 94, heart rate is 102, respiratory rate is 20, blood pressure 100/49, pu lse ox 97% on 2 liter nasal cannula. HEENT: Moist mucous membranes. Crowded airway. Mallampati score is 4. NECK: Supple. No JVD. LUNGS: Has a few crackles at the bases with scattered rhonchi. HEART: S1 and S2. ABDOMEN: Positive bowel sounds, soft, nontender, nondistended. EXTREMITIES: There is trace edema. NEUROLOGIC: Awake, alert, follows simple commands, but confused. LABORATORY DATA: Shows hemoglobin is 5.7, hematocrit 16.8, WBC 44,000, platelet count is 591. INR 1 .18, PTT 33. Sodium 137, potassium 5.8, chloride 108, bicarbonate is 9, BUN 83, creatinine 4.5, gluc ose 168, calcium 7.9, AST 156, ALT 51, alkaline phosphatase is 68, troponin 123, albumin 2.4. CAT sc an of the head is in the Emergency Room, shows limited examination. No acute intracranial hemorrhage , chronic infarct changes, right posterior frontal and parietal region. There is also a chronic appe aring infarct in the right coronal radiata and inferior centrum semiovale. There is also questionabl e right frontal scalp swelling. Chest x-ray shows a left lower lobe infiltrate with some effusion. IMPRESSION AND PLAN: Gastrointestinal bleed with hypotension, probably has a component of aspiration pneumonia, myocardial infarction, history of coronary artery disease with coronary stent, history of metabolic acidosis, anemia. The case discussed with Dr. Myers. I also spoke to air force pilot Dr. Mireles. I agree with resuscitating with fluid as well as with blood. Proton inhibitor. Sequenti al compression devices to lower extremities. Need to do an echocardiogram to assess left ventricular and right ventricular function. Will add inhaled bronchodilators. Watch closely for heart failure. Has ME, cardiology consult has been called. Already a GI consult has been called and patient was s een by Dr. Dillard. Plavix and aspirin have been on hold. High risk for thrombosing his stent. A spiration precaution. Septic workup. Start antibiotics to cover aspiration pneumonia. Follow up AB Gs, chest x-ray, CBC, CMP in the morning. Thank you and will follow with you. Shawn Ruff MD cc: [id number] TT: 08/26/2016 20:01:52 Confirmation # [id number] Dictation # [id number] dn
[2016-08-26] MEDS: Budesonide 0.5 mg/2 ml Inhal Susp UD IH SCH (20:50)
[2016-08-26] MEDS: Arformoterol 15 mcg/2 ml Inh Sol IH SCH (20:50)
[2016-08-26 21:06] LABS: ADD MANUAL DIFF? NO
[2016-08-26 21:26] LABS: ALB/GLOB RATIO 0.8 (1.1-1.8); ALKALINE PHOSPHATASE 55 U/L (38-133); ALT/SGPT 73 U/L (7-56); AST/SGOT 229 U/L (15-59); BILIRUBIN,TOTAL 0.5 mg/dL (0.2-1.3); BLOOD UREA NITROGEN 87 mg/dL (7-21); CALCIUM 7.4 mg/dL (8.4-10.5); CARBON DIOXIDE 11 mmol/L (21-33); CHLORIDE 111 mmol/L (98-107); CHOLESTEROL 53 mg/dL (130-200); GFR AFRICAN-AMERICAN 16; GLUCOSE,RANDOM 163 mg/dL (70-110); MAGNESIUM 2.2 mg/dL (1.7-2.2); PHOSPHOROUS 5.7 mg/dL (2.5-4.5); SODIUM 137 mmol/L (132-148); TOTAL PROTEIN 4.4 g/dL (5.8-8.3)
[2016-08-26 21:27] LABS: BASO # 0.02 [, K/mm3] (0.0-2.0); BASO % 0.1 % (0.0-3.0); GRAN # 35.68 (1.4-6.5); GRAN % 93.3 % (50.0-68.0); LYMPH # 1.7 (1.2-3.4); LYMPH % 4.5 % (22.0-35.0); MEAN CELL VOLUME 86.4 fL (80.0-105.0); MEAN CORPUSCULAR HEMOGLOBIN 29.8 pg (25.0-35.0); MEAN CORPUSCULAR HGB CONC 34.4 g/dl (31.0-37.0); MEAN PLATELET VOLUME 13.4 fl (7.0-11.0); MONO # 0.8 (0.1-0.6); MONO % 2.1 % (1.0-6.0); PLATELET COUNT 292 [, 10^3/uL] (120.0-450.0); RED CELL DISTRIBUTION WIDTH 14.7 % (11.5-14.5)
[2016-08-26] MEDS: Insulin Lispro (humaLOG) LOW Coverage SC SCH (21:30)
[2016-08-26 21:37] LABS: HEMATOCRIT 20.9 % (42.0-52.0); WHITE BLOOD COUNT 38.2 [, 10^3/ul] (4.5-11.0)
[2016-08-26] MEDS: Cefepime 1gm in NS 100ml 100 ML IVPB SCH (21:54)
[2016-08-26 22:03] LABS: INR 1.19 (0.93-1.08)
[2016-08-27] MEDS: metroNIDAZOLE IV 500 mg/100 ml 100 ML IVPB SCH ×3 (05:27→21:05)
[2016-08-27 05:54] LABS: ARTERIAL BLOOD GAS HCO3 12.9 mmol/L (21-28); ARTERIAL BLOOD GAS O2 CAPACITY 12.6 mL/dl (16-24); ARTERIAL BLOOD GAS O2 CONTENT 12.2 ML/dl (15-23); ARTERIAL BLOOD GAS PH 7.34 (7.35-7.45); ARTERIAL BLOOD HGB O2 SAT 93.6 % (95.0-98.0); CARBOXYHEMOGLOBIN 2.1 % (0.5-1.5); HHB 3.3 % (0-5)
[2016-08-27] MEDS: Arformoterol 15 mcg/2 ml Inh Sol IH SCH ×2 (07:05→20:05)
[2016-08-27] MEDS: Budesonide 0.5 mg/2 ml Inhal Susp UD IH SCH ×2 (07:05→20:05)
[2016-08-27] MEDS: Insulin Lispro (humaLOG) LOW Coverage SC SCH ×4 (08:01→22:30)
[2016-08-27 09:05] LABS: ALB/GLOB RATIO 0.8 (1.1-1.8); BILIRUBIN,TOTAL 0.7 mg/dL (0.2-1.3); MAGNESIUM 2.2 mg/dL (1.7-2.2); PHOSPHOROUS 4.8 mg/dL (2.5-4.5); POTASSIUM 5.1 mmol/L (3.6-5.0); TOTAL PROTEIN 4.5 g/dL (5.8-8.3)
[2016-08-27] MEDS ORDERED: Vancomycin 1gm in NS 250ml 250 ML IVPB STA (09:13)
--- NOTE | 2016-08-27 09:22 | HP ---
CHIEF COMPLAINT: GI bleeding, shortness of breath. HISTORY OF PRESENT ILLNESS: The patient is an 81-year-old male with past medical history of TIA, cardiac stent. Brought to the Emergency Room for left- sided weakness noted by the son. The patient was normal last night according to patient's son. son spent yesterday with the father and left him his [facility] and today, patient felt left-sided weakness, which started around 7 a.m. The patient will not say when GI bleeding started. The patient is disoriented. On the phone, patient's son states that the patient's weakness started months ago. The patient's son called the patient at 7:00 this morning and when patient do not answer, patient's son went to the patient's house and found him lying down on the floor, unable to get up. At present, patient denies any chest pain. No nausea, vomiting, but had GI bleeding. PAST MEDICAL HISTORY: Hypertension, CVA, left-sided weakness, diabetes mellitus type 1, falls, BPH, carotid endarterectomy. FAMILY HISTORY: Father and mother noncontributory. HABITS: Former smoker. Alcohol yes, substance abuse no. ALLERGIES: The patient is not allergic with any medication. HOME MEDICATIONS: Amlodipine, Lipitor, Promacta, Zestril. REVIEW OF SYSTEMS: The patient was seen and examined on the bedside in ER. Son was standing on the bedside also. He gave me complete history. I reviewed ER notes also for history. The patient is very weak, having shortness of breath , hardly opening eyes, is not able to complete review of systems, but no fever, no chills. No nausea, vomiting, diarrhea. No headache, no dizziness. PHYSICAL EXAMINATION: VITAL SIGNS: Temperature 98, pulse 96, blood pressure 197/52, respiratory rate 16. HEENT: Head normocephalic, atraumatic. Eyes: PERRLA. Extraocular muscles intact. Conjunctivae pink. Eyelids unremarkable. Nose patent. Mucous membranes moist. NECK: Supple. No carotid bruit, no JVD, no thyromegaly. CHEST: Bilaterally symmetrical. HEART: S1, S2 positive. LUNGS: Clear to auscultation. ABDOMEN: Soft. Bowel sounds positive. No organomegaly. EXTREMITIES: No edema, no cyanosis. NEUROLOGIC: The patient is lethargic, not oriented, is not able to give complete review of systems. LABORATORIES: White blood cells 38.2, on admission it was 43.7, hemoglobin 7.2 , on admission it was 5.7, platelets 292. Sodium 137, potassium on admission was 5.8, repeat is 5, BUN 87, creatinine 4.4, glucose 193, lactic acid 5.6. Troponin 123, repeat is 153. ASSESSMENT AND PLAN: The patient is an 81-year-old male with hyperkalemia, improved, renal insufficiency, hypocalcemia, hyperphosphatemia, abnormal liver function tests, rhabdomyolysis, heart attack, leukocytosis, anemia, status post blood transfusion. Did CAT scan of the chest and abdomen and pelvis, extremity ultrasound, CAT scan of the head. All were reviewed by me. Discussion done with Dr. Ruff, offc spec/critical care. The patient has history of idiopathic thrombocytopenic purpura. Seen by the reports developer. History of cerebrovascular accident with some residual, coronary artery disease, history of coronary stent, diabetes mellitus, benign prostatic hypertrophy. Came with gastrointestinal bleeding with hypotension, probably has a component of aspiration pneumonia, myocardial infarction, history of coronary artery disease , looks like metabolic acidosis. The patient is admitted to the unit. Dr. Ruff spoke to cyber security administrator, Dr. Mireles. The patient is getting IV fluids as well as blood. Proton pump inhibitor, sequential compression devices to lower extremities. Need to do an echocardiography to assess patient's left ventricular and right ventricular function. Needs inhaled bronchodilators. Watch closely for heart failure. Has myocardial infarction. Cutter And Edge Trimmer on the case. GI is on the case, Dr. Dillard. He saw the patient. Plavix, aspirin are on hold. High risk for thrombosis his stent. Aspiration precautions. Septic workup in the process. Follow up labs. Dr. Jay also saw the patient. Altered mental status. CAT scan of abdomen and pelvis shows limited by streaks of motion, with prominent common bile duct, no acute solid vascular hematology, mild ileus, no obstructive, possibly proctitis, 3 cm abdominal aortic aneurysm, no leakage. Gastrointestinal and deep venous thrombosis prophylaxis. Repeat labs. We will follow up. Sana Myers MD cc: [id number] TT: 08/27/2016 09:21:40 andrew LEVY
--- NOTE | 2016-08-27 09:25 | CP.CCUPN ---
CCU Subjective - Physician Review Events Since Last Encounter (Free Text): 08/27/16 09:23 81yo male presented after found by his son at home with GI bleed. Pt seen and examined at bedside. Pt remains hemodynamically stable. Pt is comfortable on NC. No bleeding episodes overnight. CCU Objective - Vital Signs / Intake & Output Vital Signs (Last 4 hours): Vital Signs Temp Pulse Resp BP Pulse Ox 08/27/16 06:15 87 17 106/55 L 95 08/27/16 06:00 87 17 108/56 L 95 08/27/16 05:45 86 17 108/59 L 95 08/27/16 05:30 83 16 100/58 L 94 L 08/27/16 05:24 98.2 F 89 16 105/58 L Intake and Output (Last 8hrs): Intake & Output 08/26/16 08/27/16 08/27/16 22:59 06:59 14:59 Intake Total 1149 3396 Output Total 50 400 Balance 1099 2996 Weight 150 lb Intake: IV 550 2746 Right Hand 300 Left Antecubital 250 2746 Oral 0 Blood Product 569 650 Apheresis Rbc Cp2d As3 Lr 285 2nd Unit [id number] Apheresis Rbc Cp2d As3 Lr 284 2nd Unit [id number] Red Blood Cells Cpd As1 325 Lr Unit [id number] Red Blood Cells Cpd As1 0 325 Lr Unit [id number] Other 30 Apheresis Rbc Cp2d As3 Lr 30 2nd Unit [id number] Output: Urine 50 400 Urethral (Gunter) 50 400 Other: Voiding Method Indwelling Catheter # Bowel Movements 0 1 - Physical Exam Head: Positive for: Atraumatic, Normocephalic Conjunctiva: Positive for: Other (conjunctival pallor) Mouth: Positive for: Moist Mucous Membranes Neck: Positive for: Normal Range of Motion Respiratory/Chest: Positive for: Clear to Auscultation, Good Air Exchange. Negative for: Respiratory Distress, Accessory Muscle Use Cardiovascular: Positive for: Regular Rate and Rhythm, Normal S1, S2. Negative for: Murmurs Abdomen: Positive for: Normal Bowel Sounds. Negative for: Tenderness, Distention, Peritoneal Signs Upper Extremity: Negative for: Edema, Erythema Lower Extremity: Positive for: Edema (2+ Pitting edema of left LE) Neurological: Positive for: Speech Normal Skin: Positive for: Warm, Dry, Normal Color, Abrasion (on left UE). Negative for: Rashes Psychiatric: Positive for: Alert, Normal Insight, Normal Concentration - Medications Active Medications: Active Medications Generic Name Dose Route Start Last Admin Trade Name Freq PRN Reason Stop Dose Admin Acetaminophen 650 mg 08/26/16 16:19 Tylenol 650 Mg Supp RC Q4H PRN Fever >100.4 F Arformoterol Tartrate 15 mcg 08/26/16 20:00 08/27/16 07:05 Brovana IH 15 mcg [id number] YUVAL Administration Budesonide 0.5 mg 08/26/16 20:00 08/27/16 07:05 Pulmicort Respules IH 0.5 mg [id number] YUVAL Administration Cefepime HCl 100 mls @ 100 mls/hr 08/26/16 22:00 08/26/16 21:54 Maxipime 1gm IVPB 100 mls/hr Q12 YUVAL Administration Protocol Metronidazole 100 mls @ 100 mls/hr 08/26/16 15:00 08/27/16 05:27 Flagyl IVPB 100 mls/hr Q8 YUVAL Administration Protocol Sodium Bicarbonate 75 meq/ 1,075 mls @ 75 mls/hr 08/26/16 15:00 08/27/16 05:28 Sodium Chloride IV 75 mls/hr .[id number] YUVAL Administration Doxycycline Hyclate 100 mg/ 100 mls @ 100 mls/hr 08/27/16 10:00 Sodium Chloride IVPB 09/10/16 10:01 Q12 YUVAL Protocol Vancomycin HCl 250 mls @ 167 mls/hr 08/27/16 09:13 Vancomycin 1gm IVPB 08/27/16 10:42 STAT STA Protocol Insulin Human Lispro 0 units 08/26/16 22:00 08/27/16 08:01 Humalog Low SC Not Given ACHS YUVAL Protocol Pantoprazole Sodium 40 mg 08/26/16 22:00 08/26/16 21:48 Protonix Inj IVP 40 mg Q12 YUVAL Administration - Patient Studies Lab Studies: Lab Studies 08/27/16 08/27/16 08/27/16 Range/Units 08:00 06:50 05:30 WBC (4.5-11.0) 10^3/ul RBC (3.5-6.1) 10^6/uL Hgb (14.0-18.0) gm/dL Hct (42.0-52.0) % MCV (80.0-105.0) fL MCH (25.0-35.0) pg MCHC (31.0-37.0) g/dl RDW (11.5-14.5) % Plt Count (120.0-450.0) 10^3/uL MPV (7.0-11.0) fl Gran % (50.0-68.0) % Lymph % (Auto) (22.0-35.0) % [place] % (Auto) (1.0-6.0) % Eos % (Auto) (1.5-5.0) % Baso % (Auto) (0.0-3.0) % Gran # (1.4-6.5) Lymph # (1.2-3.4) [place] # (0.1-0.6) Eos # (0.0-0.7) Baso # (0.0-2.0) K/mm3 PT (9.9-11.8) Seconds INR (0.93-1.08) APTT 29.1 (23.7-30.8) Seconds pCO2 24 L (35-45) mm/Hg pO2 64.0 L (80-100) mm/Hg HCO3 12.9 L (21-28) mmol/L ABG pH 7.34 L (7.35-7.45) ABG Total CO2 13.6 L (22-28) mmol.L ABG O2 Saturation 96.6 (95-98) % ABG O2 Content 12.2 L (15-23) ML/dl ABG Base Excess -11.5 L (-2.0-3.0) mmol/L ABG Hemoglobin 9.2 L (11.7-17.4) g/dL ABG Carboxyhemoglobin 2.1 H (0.5-1.5) % POC ABG HHb (Measured) 3.3 (0-5) % ABG Methemoglobin 1.0 (0.0-3.0) % ABG O2 Capacity 12.6 L (16-24) mL/dl Hgb O2 Saturation 93.6 L (95.0-98.0) % FiO2 36.0 % Sodium (132-148) mmol/L Potassium (3.6-5.0) mmol/L Chloride (98-107) mmol/L Carbon Dioxide (21-33) mmol/L Anion Gap (10-20) BUN (7-21) mg/dL Creatinine (0.5-1.4) mg/dL Est GFR ( Amer) Est GFR (Non-Af Amer) POC Glucose (mg/dL) 212 H (65-110) mg/dL Random Glucose (70-110) mg/dL Lactic Acid (0.7-2.1) mmol/L Calcium (8.4-10.5) mg/dL Phosphorus (2.5-4.5) mg/dL Magnesium (1.7-2.2) mg/dL Total Bilirubin (0.2-1.3) mg/dL AST (15-59) U/L ALT (7-56) U/L Alkaline Phosphatase (38-133) U/L Lactate Dehydrogenase (333-699) U/L Total Creatine Kinase (35-230) U/L CK-MB (CK-2) (0.0-3.6) ng/mL CK-MB (CK-2) % (2.5-3.0) % Troponin I ng/mL Total Protein (5.8-8.3) g/dL Albumin (3.0-4.8) g/dL Globulin gm/dL Albumin/Globulin Ratio (1.1-1.8) Triglycerides (35-160) mg/dL Cholesterol (130-200) mg/dL LDL Cholesterol Direct (0-129) mg/dL HDL Cholesterol (29-60) mg/dL 08/26/16 08/26/16 Range/Units 21:28 21:00 WBC 38.2 H* (4.5-11.0) 10^3/ul RBC 2.42 L (3.5-6.1) 10^6/uL Hgb 7.2 L D (14.0-18.0) gm/dL Hct 20.9 L* (42.0-52.0) % MCV 86.4 (80.0-105.0) fL MCH 29.8 (25.0-35.0) pg MCHC 34.4 (31.0-37.0) g/dl RDW 14.7 H (11.5-14.5) % Plt Count 292 (120.0-450.0) 10^3/uL MPV 13.4 H (7.0-11.0) fl Gran % 93.3 H (50.0-68.0) % Lymph % (Auto) 4.5 L (22.0-35.0) % [place] % (Auto) 2.1 (1.0-6.0) % Eos % (Auto) 0.0 L (1.5-5.0) % Baso % (Auto) 0.1 (0.0-3.0) % Gran # 35.68 H (1.4-6.5) Lymph # 1.7 (1.2-3.4) [place] # 0.8 H (0.1-0.6) Eos # 0.0 (0.0-0.7) Baso # 0.02 (0.0-2.0) K/mm3 PT 12.8 H (9.9-11.8) Seconds INR 1.19 H (0.93-1.08) APTT 28.0 (23.7-30.8) Seconds pCO2 (35-45) mm/Hg pO2 (80-100) mm/Hg HCO3 (21-28) mmol/L ABG pH (7.35-7.45) ABG Total CO2 (22-28) mmol.L ABG O2 Saturation (95-98) % ABG O2 Content (15-23) ML/dl ABG Base Excess (-2.0-3.0) mmol/L ABG Hemoglobin (11.7-17.4) g/dL ABG Carboxyhemoglobin (0.5-1.5) % POC ABG HHb (Measured) (0-5) % ABG Methemoglobin (0.0-3.0) % ABG O2 Capacity (16-24) mL/dl Hgb O2 Saturation (95.0-98.0) % FiO2 % Sodium 137 (132-148) mmol/L Potassium 5.0 (3.6-5.0) mmol/L Chloride 111 H (98-107) mmol/L Carbon Dioxide 11 L (21-33) mmol/L Anion Gap 20 (10-20) BUN 87 H (7-21) mg/dL Creatinine 4.4 H (0.5-1.4) mg/dL Est GFR ( Amer) 16 Est GFR (Non-Af Amer) 13 POC Glucose (mg/dL) 194 H (65-110) mg/dL Random Glucose 163 H (70-110) mg/dL Lactic Acid 5.6 H* (0.7-2.1) mmol/L Calcium 7.4 L (8.4-10.5) mg/dL Phosphorus 5.7 H (2.5-4.5) mg/dL Magnesium 2.2 (1.7-2.2) mg/dL Total Bilirubin 0.5 (0.2-1.3) mg/dL AST 229 H (15-59) U/L ALT 73 H (7-56) U/L Alkaline Phosphatase 55 (38-133) U/L Lactate Dehydrogenase 1625 H (333-699) U/L Total Creatine Kinase 1308 H (35-230) U/L CK-MB (CK-2) 84.5 H (0.0-3.6) ng/mL CK-MB (CK-2) % 6.5 H (2.5-3.0) % Troponin I 153.00 H* D ng/mL Total Protein 4.4 L (5.8-8.3) g/dL Albumin 1.9 L (3.0-4.8) g/dL Globulin 2.5 gm/dL Albumin/Globulin Ratio 0.8 L (1.1-1.8) Triglycerides 114 (35-160) mg/dL Cholesterol 53 L (130-200) mg/dL LDL Cholesterol Direct < 30 (0-129) mg/dL HDL Cholesterol 18 L (29-60) mg/dL Laboratory Results - last 24 hr 08/26/16 08/26/16 08/27/16 21:00 21:28 05:30 WBC 38.2 H* RBC 2.42 L Hgb 7.2 L D Hct 20.9 L* MCV 86.4 MCH 29.8 MCHC 34.4 RDW 14.7 H Plt Count 292 MPV 13.4 H Gran % 93.3 H Lymph % (Auto) 4.5 L [place] % (Auto) 2.1 Eos % (Auto) 0.0 L Baso % (Auto) 0.1 Gran # 35.68 H Lymph # 1.7 [place] # 0.8 H Eos # 0.0 Baso # 0.02 PT 12.8 H INR 1.19 H APTT 28.0 pCO2 24 L pO2 64.0 L HCO3 12.9 L ABG pH 7.34 L ABG Total CO2 13.6 L ABG O2 Saturation 96.6 ABG O2 Content 12.2 L ABG Base Excess -11.5 L ABG Hemoglobin 9.2 L ABG Carboxyhemoglobin 2.1 H POC ABG HHb (Measured) 3.3 ABG Methemoglobin 1.0 ABG O2 Capacity 12.6 L Hgb O2 Saturation 93.6 L FiO2 36.0 Sodium 137 Potassium 5.0 Chloride 111 H Carbon Dioxide 11 L Anion Gap 20 BUN 87 H Creatinine 4.4 H Est GFR ( Amer) 16 Est GFR (Non-Af Amer) 13 POC Glucose (mg/dL) 194 H Random Glucose 163 H Lactic Acid 5.6 H* Calcium 7.4 L Phosphorus 5.7 H Magnesium 2.2 Total Bilirubin 0.5 AST 229 H ALT 73 H Alkaline Phosphatase 55 Lactate Dehydrogenase 1625 H Total Creatine Kinase 1308 H CK-MB (CK-2) 84.5 H CK-MB (CK-2) % 6.5 H Troponin I 153.00 H* D Total Protein 4.4 L Albumin 1.9 L Globulin 2.5 Albumin/Globulin Ratio 0.8 L Triglycerides 114 Cholesterol 53 L LDL Cholesterol Direct < 30 HDL Cholesterol 18 L 08/27/16 08/27/16 06:50 08:00 WBC RBC Hgb Hct MCV MCH MCHC RDW Plt Count MPV Gran % Lymph % (Auto) [place] % (Auto) Eos % (Auto) Baso % (Auto) Gran # Lymph # [place] # Eos # Baso # PT INR APTT 29.1 pCO2 pO2 HCO3 ABG pH ABG Total CO2 ABG O2 Saturation ABG O2 Content ABG Base Excess ABG Hemoglobin ABG Carboxyhemoglobin POC ABG HHb (Measured) ABG Methemoglobin ABG O2 Capacity Hgb O2 Saturation FiO2 Sodium Potassium Chloride Carbon Dioxide Anion Gap BUN Creatinine Est GFR ( Amer) Est GFR (Non-Af Amer) POC Glucose (mg/dL) 212 H Random Glucose Lactic Acid Calcium Phosphorus Magnesium Total Bilirubin AST ALT Alkaline Phosphatase Lactate Dehydrogenase Total Creatine Kinase CK-MB (CK-2) CK-MB (CK-2) % Troponin I Total Protein Albumin Globulin Albumin/Globulin Ratio Triglycerides Cholesterol LDL Cholesterol Direct HDL Cholesterol EKG/Cardiology Studies: Cardiology / EKG Studies 08/27/16 05:00 EKG [ELECTROCARDIOGRAM] Routine Comment: Reason For Exam: NSTEMI Fingerstick Blood Sugar Results: 212 Review of Systems - Review of Systems Systems not reviewed;Unavailable: Acuity of Condition Critical Care Progress Note - Ventilator Checklist Head of Bed 30 Degrees: Yes PUD Prophalyxis: Yes DVT Prophylaxis: Yes Assessment/Plan - Assessment and Plan (Free Text) Plan: NSTEMI \ GI bleed \ Blood loss anemia \ ALLYSON on CKD \ Elevated LFT \ PNA \ Sepsis \ ITP \ ro CVA -hemodynamic monitoring to maintain MAP>65; currently stable -f\u serial CE and ECG; pt is currently chest pain free -f\u Echo -cardiology team following closely but due to severity of overall pt condition and active GIB unable to do PCI -no asa, plavix or heparin due to active GI bleed -no bblocker or Juwan\Arb as labile B\P -No statin as LFT elevated -o2 supplementation to maintain Spo2>90 Pao2>60; currently comfortable on NC -CXR reviewed and B\L opacification noted -continue broad spectrum Abx as per ID team; f\u cultures and cdiff -f\u Bun\Cr and U\o; 1/2NS with 75meq bicarb for isotonic, low chloride IVF in setting of sepsis -consider renal team eval -NPO diet and aspiration precautions -PPI IV q12h -GI team eval appreciated -f\u serial LFT -f\u Abdo US -f\u serial H\H; monitor for bleeding -s\p 4 PRBC -Heme\Onc evaluation appreciated -resume ASA\Plavix when ok by GI team -CT C\A\P reviewed (pls see full official read in EMR) -CT head shows no acute bleed , old CVA area noted (pls see full read in EMR) -neurology eval -f\u LE duplex to ro DVT -f\u repeat labs this AM -DVT \ PUD prophylaxis DW nursing staff and ID team CCM time >42min
--- NOTE | 2016-08-27 09:41 | CARD ---
APPROVED REPORT EKG Measurement Heart [id number] CT 174P [id number] <Conclusion> Normal sinus rhythm PRWP V 1 - 5 Small q 3,F STTW changes c/w ischemia, new
[2016-08-27] MEDS ORDERED: Vancomycin 1gm in NS 250ml 250 ML IVPB SCH (10:00)
[2016-08-27 10:01] LABS: HEMATOCRIT 28.9 % (42.0-52.0); MEAN CELL VOLUME 87.3 fL (80.0-105.0); MEAN CORPUSCULAR HEMOGLOBIN 31.1 pg (25.0-35.0); MEAN CORPUSCULAR HGB CONC 35.6 g/dl (31.0-37.0); MEAN PLATELET VOLUME 14.1 fl (7.0-11.0); PLATELET COUNT 248 [, 10^3/uL] (120.0-450.0); RED CELL DISTRIBUTION WIDTH 15.1 % (11.5-14.5); RETIC% 1.58 % (0.5-1.5)
[2016-08-27 10:04] LABS: WHITE BLOOD COUNT 45.7 [, 10^3/ul] (4.5-11.0)
[2016-08-27] MEDS: Cefepime 1gm in NS 100ml 100 ML IVPB SCH ×2 (10:13→21:08)
--- NOTE | 2016-08-27 10:39 | CON ---
DATE: 08/27/2016 The patient seen earlier this morning in the ICU in 129, bed 1. CHIEF COMPLAINT: Weakness times several days. HISTORY OF PRESENT ILLNESS: This is an 81-year-old Malay male, known to me from previous admission in 10/2015. The patient with a history of kidney disease and cerebrovascular accident, coronary arter y disease, diabetes mellitus, hypertension, ITP, BPH, who has had a history of left carotid endartere ctomy and is admitted on this admission with a diagnosis of GI bleed and hyperkalemia and found to rae ve leukocytosis of 43,000. Infectious disease consultation requested. REVIEW OF SYSTEMS: Reveals the patient was seen in the Emergency Room by Dr. Niall Cain and wit h left-sided weakness noted by the son and was given a diagnosis of GI bleed and hyperkalemia. He wa s found in his house by his son and patient was found on the floor, unable to get up. He denied any pain anywhere. This morning, he states, through a awning spreader, he denied any headaches or blurred vis ion. No chest pain. No abdominal pain at this time and no fevers and no chills. PAST MEDICAL HISTORY: Significant for cerebrovascular accident and coronary artery disease, coronary artery stents and history of ITP and diabetes mellitus and hypertension, BPH and kidney disease. PAST SURGICAL HISTORY: Significant for left carotid endarterectomy. The patient denied any fevers, any chills, although in the Emergency Room, his temperature was 93 and was hypothermic. ALLERGIES: The patient has no known allergies. PHYSICAL EXAMINATION: VITAL SIGNS: Temperature is 98. He was 93.8. Heart rate is 87, it was up to 100. Respiratory rate of 17 and it was up to 23 and 24 earlier. The blood pressure is 108/50 and it was done initially 90 /40 with a saturation now at 95% and initially it was earlier down to 94%. HEENT: Unremarkable. NECK: Supple. LUNGS: Have decreased breath sounds. HEART: Normal S1, S2. ABDOMEN: Soft, nontender. LABORATORY EXAMINATION: Reveals a white count of 43,000, hemoglobin of 5 with platelets of 591 with 88% neutrophils, 3% bandemia. Coagulation is noted. INR of 1.18. BUN of 43, creatinine of 4.3. La ctic acid is 5.6. LDH is 1625. CK is 1303 and troponin is 123. Microbiology is pending. The patie nt had a chest x-ray, right lower lobe infiltrate, hazy retrocardiac region. The patient also had a CAT scan of the chest and abdomen and pelvis, which shows a moderately large bilateral pleural effusi on, atelectasis changes, asymmetric bilateral airspace disease, nodular component. CAT scan of the a bdomen and pelvis reveals gallstones with prominent common bile duct, no acute solid visceral abnorma lity, mild ileus, obstruction, possible proctitis, 3 cm infrarenal intra-abdominal aortic aneurysm wi th no leak and the common bile duct is prominent, gallbladder is distended, multiple stones. The pat ient also had a CAT scan of the head, which revealed to be no acute intracranial changes. Of note is the patient's creatinine had gone from 3.0 to 4.5. Of note, the patient was last hospitalized in April. ASSESSMENT AND PLAN: An 81-year-old Malay male with cerebrovascular accident, coronary artery disea se, idiopathic thrombocytopenic purpura, kidney disease, diabetes, hypertension, benign prostatic hyp ertrophy. Admitted with hypothermia, tachycardia, leukocytosis and infiltrates on a chest x-ray and possible gallbladder distention with severe anemia. Severe sepsis with community-acquired pneumonia with acute kidney injury on top of chronic kidney inj ury and anemia and elevated troponin, non-ST elevation myocardial infarction with lactic acidosis and an EKG with nonspecific findings, although the official EKG has not been read on the chart. Dr. Gilson velazco's consultation is reviewed and Dr. Ruff's consultation is reviewed and left popliteal bypass surgery according to Dr. Jay with acute gastrointestinal bleeding and significant anemia . We will continue the Flagyl and Maxipime and add doxycycline for atypicals. Ask for urine for leg ionella antigen and retic count and a procalcitonin and no particular interest. The patient has no r ecent travel. Concerned about hemolytic anemia. Will make further recommendations. Will order a he patitis profile. Will also order a babesia workup, malaria workup, reticulocytosis, LDH, haptoglobin and hemolytic anemia workup and mycoplasma and I recommend a hematology consultation for hemolytic w orkup and for review of the peripheral smear to rule out thrombotic thrombocytopenic purpura on top o f idiopathic thrombocytopenic purpura. Will make further recommendations upon the availability of in itial workup and will follow closely with you. Kamran Jay MD cc: [id number] TT: 08/27/2016 10:39:06 Confirmation # [id number] Dictation # [id number] en
[2016-08-27] MEDS ORDERED: Insulin Detemir 100 units/ml Vial (Levemir) SC ONE (10:54)
--- NOTE | 2016-08-27 11:29 | CON ---
DATE: 08/27/2016 NEUROLOGY CONSULT CHIEF COMPLAINT: Altered mental status, status post GI bleed, and multiorgan failure. HISTORY OF PRESENT ILLNESS: This is an 81-year-old gentleman who is well known to me from 10/2015 who had a CVA in the right posterior frontoparietal region, as well as right naylor radiata inferior treva iovale with history of a right complete internal carotid artery stenosis and had 70% of left internal carotid artery stenosis with status post left carotid endarterectomy, history of chronic kidney dise ase, has residual left-sided weakness with mild left facial droop residual from prior CVA, history of hypertension, history of idiopathic thrombocytopenia purpura, history of coronary artery disease sta tus post stent, diabetes, BPH, who came to the hospital because he was found on the floor lying face- down covered in black tarry stool, and therefore, was brought by the son to the hospital. Was follow ing simple commands, but was confused. He was found to have severe anemia with a hemoglobin of 5.7, status post transfusion of 4 units of PRBC. Currently today's hemoglobin is 10.3 with an elevated wh ite count of 45.7. He also has elevated potassium 5.1 with increased lactate dehydrogenase, as well as increase troponins of 164 indicating probably a massive underlying myocardial injury. He has had history of AFib in the past. Currently, he is moving all extremities, has residual left-sided weakness from prior CVA. He is aler t. He slightly drowsy, but opens eyes to command. 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 FAMILY HISTORY: Positive for Alzheimer's-type dementia. SOCIAL HISTORY: Stopped smoking many years ago. He drinks 3 beers on the weekend at times. ALLERGIES: No known drug allergies. MEDICATIONS: Reviewed via nurse's reconciliation sheet. REVIEW OF SYSTEMS: A 14-point review of systems is negative except in the HPI. PHYSICAL EXAMINATION: VITAL SIGNS: Temperature 98.2, pulse rate of 89, blood pressure 105/58, respiratory rate of 16, oxyg en 95% via room air. GENERAL: The patient is lying in bed and drowsy, in no acute distress. HEENT: Atraumatic, normocephalic. PERRLA. Extraocular muscles are intact. Has residual mild left facial droop from prior CVA. NECK: Supple. No JVD, no adenopathy noted. LUNGS: Clear to auscultation. No adventitious sounds. HEART: S1, S2, normal rate and rhythm. No murmurs, rubs, or gallops. ABDOMEN: Soft, nontender, nondistended. Bowel sounds are present. EXTREMITIES: No clubbing, no cyanosis. Peripheral pulses are 2+ felt bilaterally. NEUROLOGIC: The patient is drowsy, but follows simple commands. He is oriented to place and year. Recall after 5 minutes is 0/3. Poor attention span. He has mild dysarthria residual from old CVA. Cranial nerves II-XII intact except for residual mild left facial droop from prior CVA. MOTOR: Has residual left upper and lower extremity weakness 4+ to 5-/5, which is from his old infarc ts, and his right side is intact. Toes are equivocal. SENSORY: Withdraws to localized noxious stimulus. Light touch and proprioception intact. DTRs are 2+ throughout, 1 at the knees, and absent at the ankles. COORDINATION AND GAIT: Deferred for now. LABORATORY DATA: Sodium is 137, potassium 5.1, chloride of 112, carbon dioxide of 15, BUN of 101, cr eatinine of 4.3, and random glucose 183. Lactic acid is 5.6. AST is 24. ALT is 82. ____ is 2122. Troponin is 164. 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 cerebral artery territory infarcts, watershed in distribution with residual left- sided weakness and left facial droop, history of non-ST elevation myocardial infarction, history of c oronary artery disease status post stents, history dyslipidemia who was found on the floor and covere d in black tarry stools, was confused and found to have a severe massive gastrointestinal bleed and h ypotension with a hemoglobin of 5.7 and status post 4 units of packed red blood cells - now is 10.3, and elevated WBC count, and elevated LFTs and lactate dehydrogenase, and elevated troponins, and meta bolic derangements. His change in mental status is secondary to severe gastrointestinal bleed, statu s post hypotension causing cerebral hypoperfusion to the brain, causing him to be drowsy. In additio n to underlying multiorgan failure, underlying myocardial injury. RECOMMENDATIONS: At this time, I recommend: 1. Hold off aspirin and Plavix until the source of bleeding is found. 2. Sequential compression devices, lower extremities. 3. Get an echocardiogram and cardiology evaluation given his trending up elevated troponins. 4. Monitor his electrolytes and correct accordingly, and once cleared by GI and cardiology, then can restart Plavix and aspirin once his hemoglobin is seen stable. 5. Continue with septic workup, and cover prophylactic antibiotics for aspiration pneumonia. 6. He will eventually need swallow evaluation, as well as physical therapy. At this time, continue with current present medical management. His CVA is old. Thank you. Fuentes Palomino MD cc: [phone] TT: 08/27/2016 11:28:36 Confirmation # [id number] Dictation # [id number] alberto
--- NOTE | 2016-08-27 11:50 | CP.PCM.CON ---
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 The patient is well known to me for work up and treatment of his ITP. He failed steroids and rituximab in the past and has been receiving thrombopoeitin receptor agonist therapy since 2015. He has failed to return for f/u visits in the last few months as is needed to monitor platelet count. Per his son, he has been doing well overall. He found his father on the floor at home with melanotic stool. Currently the patient is confused. Past medical, surgical, family, social history cannot be obtained from the patient Allergies: Per documentation NKA Review of systems cannot be obtained from the patient. Past Patient History - Infectious Disease Hx of Infectious Diseases: None - Past Medical History & Family History Past Medical History?: Yes - Past Social History Smoking Status: Former Smoker - CARDIAC Hx Hypertension: Yes - PULMONARY Hx Respiratory Disorders: Yes (SMOKED CIGARETTES PPD. QUIT 20 YRS AGO.) Hx Pneumonia: Yes - NEUROLOGICAL HX Cerebrovascular Accident: Yes (recent, with L sided weakness) - HEENT Hx HEENT Problems: Yes Hx Cataracts: Yes (BILATERAL CATARACT SURGERY) - RENAL Hx Chronic Kidney Disease: No - ENDOCRINE/METABOLIC Hx Diabetes Mellitus Type 1: Yes - HEMATOLOGICAL/ONCOLOGICAL Hx Blood Disorders: Yes Hx Anemia: Yes Other/Comment: ITP ( IDIOPATHIC THROMBOCYTOPENIA PURPURA) - INTEGUMENTARY Hx Dermatological Problems: Yes (LEFT LEG EDEMA +3 PITTING,MOTTLED,SCARRED) - MUSCULOSKELETAL/RHEUMATOLOGICAL Hx Falls: Yes - GASTROINTESTINAL Hx Gastrointestinal Disorders: No - GENITOURINARY/GYNECOLOGICAL Other/Comment: BPH - PSYCHIATRIC Hx Substance Use: No - SURGICAL HISTORY Hx Carotid Endarterectomy: Yes - ANESTHESIA Hx Anesthesia Reactions: No Hx Malignant Hyperthermia: No Meds Allergies/Adverse Reactions: Allergies Allergy/AdvReac Type Severity Reaction Status Date / Time No Known Allergies Allergy Verified 08/26/16 14:47 - Medications Medications: Current Medications Acetaminophen (Tylenol 650 Mg Supp) 650 mg RC Q4H PRN PRN Reason: Fever >100.4 F Arformoterol Tartrate (Brovana) 15 mcg IH [id number] YUVAL Last Admin: 08/27/16 07:05 Dose: 15 mcg Budesonide (Pulmicort Respules) 0.5 mg IH [id number] YUVAL Last Admin: 08/27/16 07:05 Dose: 0.5 mg Cefepime HCl (Maxipime 1gm) 100 mls @ 100 mls/hr IVPB Q12 YUVAL PRN Reason: Protocol Last Admin: 08/27/16 10:13 Dose: 100 mls/hr Metronidazole (Flagyl) 100 mls @ 100 mls/hr IVPB Q8 YUVAL PRN Reason: Protocol Last Admin: 08/27/16 05:27 Dose: 100 mls/hr Sodium Bicarbonate 75 meq/ (Sodium Chloride) 1,075 mls @ 75 mls/hr IV .[id number] YUVAL Last Admin: 08/27/16 05:28 Dose: 75 mls/hr Doxycycline Hyclate 100 mg/ (Sodium Chloride) 100 mls @ 100 mls/hr IVPB Q12 YUVAL PRN Reason: Protocol Stop: 09/10/16 10:01 Last Admin: 08/27/16 10:13 Dose: 100 mls/hr Insulin Human Lispro (Humalog Low) 0 units SC ACHS YUVAL PRN Reason: Protocol Last Admin: 08/27/16 08:01 Dose: Not Given Pantoprazole Sodium (Protonix Inj) 40 mg IVP Q12 [facility] Last Admin: 08/27/16 10:13 Dose: 40 mg Physical Exam - Head Exam Head Exam: ATRAUMATIC - Eye Exam Eye Exam: Normal appearance - ENT Exam ENT Exam: Mucous Membranes Dry - Respiratory Exam Respiratory Exam: NORMAL BREATHING PATTERN - Cardiovascular Exam Cardiovascular Exam: +S1, +S2 - GI/Abdominal Exam GI & Abdominal Exam: Normal Bowel Sounds - Extremities Exam Extremities exam: Positive for: pedal edema - Neurological Exam Neurological exam: Altered - Skin Skin Exam: Warm Results - Vital Signs Recent Vital Signs: Last Vital Signs Temp 98.2 F 08/27/16 05:24 Pulse 87 08/27/16 06:15 Resp 17 08/27/16 06:15 BP 106/55 L 08/27/16 06:15 Pulse Ox 95 08/27/16 06:15 - Labs Result Diagrams: 08/27/16 09:45 08/27/16 08:45 Labs: Laboratory Results - last 24 hr 04/15/17 04/15/17 04/16/17 21:00 21:28 05:30 WBC 38.2 H* RBC 2.42 L Hgb 7.2 L D Hct 20.9 L* MCV 86.4 MCH 29.8 MCHC 34.4 RDW 14.7 H Plt Count 292 MPV 13.4 H Gran % 93.3 H Lymph % (Auto) 4.5 L [place] % (Auto) 2.1 Eos % (Auto) 0.0 L Baso % (Auto) 0.1 Gran # 35.68 H Lymph # 1.7 [place] # 0.8 H Eos # 0.0 Baso # 0.02 Retic Count PT 12.8 H INR 1.19 H APTT 28.0 pCO2 24 L pO2 64.0 L HCO3 12.9 L ABG pH 7.34 L ABG Total CO2 13.6 L ABG O2 Saturation 96.6 ABG O2 Content 12.2 L ABG Base Excess -11.5 L ABG Hemoglobin 9.2 L ABG Carboxyhemoglobin 2.1 H POC ABG HHb (Measured) 3.3 ABG Methemoglobin 1.0 ABG O2 Capacity 12.6 L Hgb O2 Saturation 93.6 L FiO2 36.0 Sodium 137 Potassium 5.0 Chloride 111 H Carbon Dioxide 11 L Anion Gap 20 BUN 87 H Creatinine 4.4 H Est GFR ( Amer) 16 Est GFR (Non-Af Amer) 13 POC Glucose (mg/dL) 194 H Random Glucose 163 H Lactic Acid 5.6 H* Calcium 7.4 L Phosphorus 5.7 H Magnesium 2.2 Total Bilirubin 0.5 AST 229 H ALT 73 H Alkaline Phosphatase 55 Lactate Dehydrogenase 1625 H Total Creatine Kinase 1308 H CK-MB (CK-2) 84.5 H CK-MB (CK-2) % 6.5 H Troponin I 153.00 H* D Total Protein 4.4 L Albumin 1.9 L Globulin 2.5 Albumin/Globulin Ratio 0.8 L Triglycerides 114 Cholesterol 53 L LDL Cholesterol Direct < 30 HDL Cholesterol 18 L 08/27/16 08/27/16 08/27/16 06:50 08:00 08:45 WBC RBC Hgb Hct MCV MCH MCHC RDW Plt Count MPV Gran % Lymph % (Auto) [place] % (Auto) Eos % (Auto) Baso % (Auto) Gran # Lymph # [place] # Eos # Baso # Retic Count PT INR APTT 29.1 pCO2 pO2 HCO3 ABG pH ABG Total CO2 ABG O2 Saturation ABG O2 Content ABG Base Excess ABG Hemoglobin ABG Carboxyhemoglobin POC ABG HHb (Measured) ABG Methemoglobin ABG O2 Capacity Hgb O2 Saturation FiO2 Sodium 137 Potassium 5.1 H Chloride 112 H Carbon Dioxide 15 L Anion Gap 15 BUN 101 H Creatinine 4.3 H Est GFR ( Amer) 16 Est GFR (Non-Af Amer) 13 POC Glucose (mg/dL) 212 H Random Glucose 180 H Lactic Acid Calcium 7.0 L Phosphorus 4.8 H Magnesium 2.2 Total Bilirubin 0.7 AST 244 H ALT 82 H Alkaline Phosphatase 65 Lactate Dehydrogenase 2122 H Total Creatine Kinase 991 H CK-MB (CK-2) 96.3 H CK-MB (CK-2) % 9.7 H Troponin I 164.00 H* Total Protein 4.5 L Albumin 2.0 L Globulin 2.5 Albumin/Globulin Ratio 0.8 L Triglycerides Cholesterol LDL Cholesterol Direct HDL Cholesterol 08/27/16 09:45 WBC 45.7 H* RBC 3.31 L Hgb 10.3 L Hct 28.9 L MCV 87.3 MCH 31.1 MCHC 35.6 RDW 15.1 H Plt Count 248 MPV 14.1 H Gran % Lymph % (Auto) [place] % (Auto) Eos % (Auto) Baso % (Auto) Gran # Lymph # [place] # Eos # Baso # Retic Count 1.58 H PT INR APTT 29.7 pCO2 pO2 HCO3 ABG pH ABG Total CO2 ABG O2 Saturation ABG O2 Content ABG Base Excess ABG Hemoglobin ABG Carboxyhemoglobin POC ABG HHb (Measured) ABG Methemoglobin ABG O2 Capacity Hgb O2 Saturation FiO2 Sodium Potassium Chloride Carbon Dioxide Anion Gap BUN Creatinine Est GFR ( Amer) Est GFR (Non-Af Amer) POC Glucose (mg/dL) Random Glucose Lactic Acid 1.3 Calcium Phosphorus Magnesium Total Bilirubin AST ALT Alkaline Phosphatase Lactate Dehydrogenase Total Creatine Kinase CK-MB (CK-2) CK-MB (CK-2) % Troponin I Total Protein Albumin Globulin Albumin/Globulin Ratio Triglycerides Cholesterol LDL Cholesterol Direct HDL Cholesterol Assessment & Plan (1) Anemia Assessment and Plan: GI bleeding anemia of CKD aspirin and plavix on hold agree with transfusion support Status: Acute (2) Leukocytosis Assessment and Plan: on antibiotics Status: Acute (3) ITP (idiopathic thrombocytopenic purpura) Assessment and Plan: agree with holding promacta for now goal plt count on promacta should be around 50,000 Thank you for this interesting consult. Status: Acute Priority: High Diagnosis Date: 09/16/14
--- NOTE | 2016-08-27 11:58 | RAD ---
HISTORY: infiltrate COMPARISON: Comparison made with prior study 08/26/2016 FINDINGS: LUNGS: Diffuse bilateral perihilar infiltrates consistent with pulmonary edema/ CHF with bilateral alveolar-type infiltrates and bilateral effusions. PLEURA: No pneumothorax apparent. CARDIOVASCULAR: Normal. OSSEOUS STRUCTURES: No significant abnormalities. VISUALIZED UPPER ABDOMEN: Normal. OTHER FINDINGS: None. IMPRESSION: Diffuse pulmonary edema/CHF with bilateral alveolar-type infiltrates and bilateral effusions
--- NOTE | 2016-08-27 12:45 | PN ---
DATE: 08/27/2016 SUBJECTIVE: This patient was seen and evaluated in the ICU. The patient's son and family were at e bedside. The patient appeared more comfortable, more alert and responsive. PHYSICAL EXAMINATION: VITAL SIGNS: His temperature is now 98.2. Yesterday, he was hypothermic up to 93.7. Blood pressure 106/55, pulse 87, respirations 17, O2 saturation 95%. HEENT: Atraumatic, anicteric. The patient has a mild left facial droop present. NECK: Supple. LUNGS: Bilateral air entry present, reduced at the base, a few scattered rhonchi. HEART: S1, S2 heard. ABDOMEN: Soft. There is no tenderness. EXTREMITIES: No cyanosis, no clubbing. The patient has surgical scars present in the lower extremit ies, bypass surgery before. NEUROLOGY: The patient is more alert, able to communicate with his son. He has some mild dysarthria . LABORATORY DATA: WBC count elevated to 45.7, hemoglobin 10.3, hematocrit 28.9, platelets 248. The p atient's granulocytes 93.3, and absolute neutrophil count is over 35,000. Chemistry shows troponin has elevated - increased to 164. Lactic acid yesterday was 5.6, and now it is 1.3. Creatinine 4.3. BUN 101. LFTs show alkaline phosphatase is normal. AST ____. ALT is 82. A CT scan of the abdomen, pelvis, and chest was reviewed. The patient had bilateral pleural effusion and atelectatic changes with bilateral airspace disease in the base area, and there is a distal rect al wall thickening noticed. A mildly prominent common bile duct. There is a mild rectal wall thicke clement noticed. There is a small radiopaque shadow seen. It appears to be in the prostate rather than in the rectum. IMPRESSION: 1. Gastrointestinal bleeding, status post 4 units of transfusion. Only a smear of blood noticed in the rectal area. No active bleeding. The differential diagnosis should include upper gastrointestin al bleeding, proctitis. Lower gastrointestinal etiology also should be considered. The patient had a maroon stool on rectal examination done yesterday. Other differential diagnoses include diverticul osis, angiodysplasia, peptic ulcer disease, erosive esophagitis also to be considered. 2. Status post transfusion, hemoglobin stable now on Protonix 40 mg IV q. 12 hourly. Would recommen d to follow up the hemoglobin and hematocrit closely. 3. Non-ST segment myocardial infarction, with significantly elevated LFTs, being followed by cardiol jones. Echo is still pending. The patient has posterior cerebral artery and stent placement - aspirin and Plavix on hold because of the active gastrointestinal bleeding now. 4. Sepsis. Etiology is unclear, bilateral lung infiltrate versus atelectasis. It just could be pne umonia, aspiration pneumonia to be considered. Another differential diagnosis to be included is Clos tridium difficile colitis because the white cell count is significantly elevated, and the patient's a bdomen physical examination is benign. CT did not show any acute intra-abdominal pathology. The pat ient has been followed by infectious disease, and continue the antibiotics as per infectious disease and follow up the cultures, and workup ordered as per infectious disease. 5. History of idiopathic thrombocytopenic purpura. The patient was on Promacta at home. The platel et count is significantly higher compared to his baseline. His platelet count was 591 when he was ad mitted. He has a history of idiopathic thrombocytopenic purpura with low count before. The patient was in the past treated with steroid - Promacta therapy. Follow up as per hematology. 6. Acute kidney injury on chronic kidney disease. Followup of the renal function and urinary output closely. 7. Change of mental status. No more alert. History of status post cerebrovascular accident. Carot id endarterectomy in the past. The patient was on aspirin and Plavix on hold now being followed by n eurology. 8. Gallstones - mildly prominent in duct, but alkaline phosphatase is completely normal. Transamina se is only mildly elevated. Less likely to be biliary etiology. 9. The CT was reviewed and showed some radiopaque material. This one appears to be in prostate rath er than the rectum. We will review with the radiologist regarding this. Thank you very much for allowing us to participate in the care of the patient with multiple comorbidi ties, and the patient is acutely sick. His prognosis is guarded. I discussed with the patient's fam alex at length. Time spent in evaluating and coordinating care of the patient is 30 minutes. Kovil V Nishant MD cc: [id number] TT: 08/27/2016 12:44:23 Confirmation # [id number] Dictation # [id number] jn
--- NOTE | 2016-08-27 12:47 | PN ---
DATE: 08/27/2016 ADDENDUM This is an addendum to the GI progress report dictated earlier. I just spoke with the family again. They did verify that the patient was on antibiotics a few weeks before, and this is more likely caus ing his case with a high white cell count. C. diff to be ruled out. We will empirically start the p atient on p.o. vancomycin. Eleonora Dillard MD cc: [id number] TT: 08/27/2016 12:46:56 Confirmation # [id number] Dictation # [id number] jn
--- NOTE | 2016-08-27 13:55 | PN ---
DATE: 08/27/2016 The patient received 4 units of packed RBC transfusion. There is no recurrence of melena. No report ed ventricular arrhythmia and no reported hypotension. PHYSICAL EXAMINATION: VITAL SIGNS: Blood pressure 120/62, heart rate 88, respirations 17, temperature 98.2. HEENT: Pale conjunctivae. CHEST: Bilateral rhonchi and diminished breath sounds over the bases. HEART: S1, S2 regular. ABDOMEN: Soft. EXTREMITIES: 2+ left leg edema. LABORATORIES: Today's hemoglobin and hematocrit 10.3 and 28.9, white count is 45.7 thousand, platele t count 248. SMA-7: Sodium 137, potassium 5.1, chloride 112, CO2 15, glucose 180, BUN 11, creatinin e 4.3. Troponin is 164. I did review the neurology consult and the assessment was an 81-year-old man with past medical histor y of hypertension, dyslipidemia, paroxysmal atrial fibrillation, chronic kidney disease, history of r ight mid cerebral artery and right posterior cerebral artery territory infarct, watershed in distribu tion with residual left-sided weakness and left facial droop, recent non-ST elevation myocardial infa rction, history of coronary artery disease status post stent, history of dyslipidemia. His change in mental status secondary to severe gastrointestinal bleed, status post hypotension causing cerebral h ypoperfusion to the brain causing him to be drowsy. ASSESSMENT: 1. Acute gastrointestinal bleeding. The patient required 4 units of packed red blood cell transfusi on. 2. Coronary artery disease, status post coronary stenting. The patient, for this reason, had to be on aspirin and Plavix. 3. Paroxysmal atrial fibrillation. 4. Worsening renal insufficiency. 5. History of cerebrovascular accident. RECOMMENDATIONS: Continue current intravenous doxycycline, intravenous Maxipime, oral vancomycin and intravenous Flagyl. The patient is not a suitable candidate for either antiplatelets or anticoagula tion therapy. Obtain repeat 12-lead EKG and I recommend repeating head CT scan without contrast by t omorrow. Carl Jay MD cc: [id number] TT: 08/27/2016 13:55:03 Confirmation # [id number] Dictation # [id number] en
[2016-08-27] MEDS ORDERED: Vancomycin 500 mg (Oral/Rectal USE) PR SCH (14:00)
[2016-08-27] MEDS: Vancomycin 25 MG/ML PO SCH ×3 (14:08→21:18)
--- NOTE | 2016-08-27 14:19 | US ---
Abdominal ultrasound 08/27/2016. History: Rule out gallstones. Assess kidneys. Sonographic evaluation of the abdomen performed. Comparison made with CT scan of the chest abdomen pelvis 08/26/2016. The liver exhibits normal size measuring approximately 14 cm in CC dimension. Liver demonstrates slight increased echo chin density which could be secondary to fatty infiltration however other infiltrative hepatocellular disease process not excluded. No obvious hepatic mass or collection. Re- demonstrated are shadowing intraluminal gallbladder calculi. Slight wall thickening - edema could be due to incomplete distention however the possibility of mild early cholecystitis to be considered. . Tiny amount of pericholecystic fluid present. No sonographic Rosenberg sign. Common bile duct is dilated measuring approximately 7.6 mm which may in part be due to advanced age. No definitive radiographic evidence of choledocholithiasis. Visualized portions of the pancreas unremarkable. Spleen exhibits normal size and attenuation pattern without mass collection or calcification. Kidneys exhibit symmetric size. Re- demonstrated is a small cyst midpole left kidney measuring approximately 1.7 cm in greatest dimension. . No evidence of hydronephrosis. Several small presumed vascular calcifications seen on prior CT scan not appreciated on this study. 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 Which was seen to better advantage on prior CT scan. This aneurysm measured approximately 3 cm on that exam. Please refer to that report for additional details. Impression: Cholelithiasis with gallbladder wall thickening- edema and small amount pericholecystic fluid. No sonographic Rosenberg sign. There is dilated common bile duct likely in part due to advanced age. Rule out mild early acute cholecystitis. Mild fatty hepatic infiltration however other infiltrative hepatocellular disease process not excluded. 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 . Note that this on did measure approximately [address] scan. Please refer to that report for additional details. Small left renal cyst.
[2016-08-27 15:34] LABS: ABG MECHANICAL RATE 14; ARTERIAL BLOOD GAS HCO3 13.9 mmol/L (21-28); ATERIAL BLOOD GAS PEEP 5
[2016-08-27 15:36] LABS: ARTERIAL BLOOD GAS PH 7.32 (7.35-7.45)
--- NOTE | 2016-08-27 15:41 | RAD ---
PROCEDURE: CHEST RADIOGRAPH, 1 VIEW HISTORY: assess ET tube placement COMPARISON: Comparison chest dated 08/27/2016. FINDINGS: LUNGS: Interval placement ETT, tip of which lies approximately 5.9 cm above jose. Diffuse bilateral pulmonary vascular congestion with bilateral alveolar-type infiltrates and bilateral effusions. PLEURA: As above. No evidence of pneumothorax. . CARDIOVASCULAR: Normal. OSSEOUS STRUCTURES: No significant abnormalities. VISUALIZED UPPER ABDOMEN: Normal. OTHER FINDINGS: None. IMPRESSION: Interval placement ETT. Moderate to fairly significant diffuse pulmonary edema/ CHF with bilateral alveolar-type infiltrates and bilateral effusions. .
--- NOTE | 2016-08-27 16:47 | PN ---
DATE: 08/27/2016 REFERRING PHYSICIAN: Dr. Myers SUBJECTIVE: He is lying in the bed, head at 45 degrees, sleepy, arousable. Does have some cough and shortness of breath. Audible wheezing. No significant bleeding since this morning from the rectum. No leg pain or leg swelling. OBJECTIVE: GENERAL: No acute distress. VITAL SIGNS: Temperature is 98, heart rate is 73, respiratory rate is 24, blood pressure 123/73, pul se ox 97% on nasal cannula. HEENT: Moist mucous membranes. Crowded airway. Mallampati score is 4. NECK: Supple. No JVD. LUNGS: Has basilar crackles, scattered expiratory wheezing. HEART: S1, S2. ABDOMEN: Soft, nontender, nondistended. EXTREMITIES: There is no edema. NEUROLOGIC: Sleepy, arousable, follows simple command. MEDICATIONS: He is on Brovana 15 mcg inhaled twice a day, doxycycline 100 mg twice a day, Flagyl 500 mg q. 8 hours, insulin coverage, cefepime 1 g q. 12 hours, Protonix 40 mg daily, Pulmicort inhaled t wice a day, IV fluid with bicarbonate 60 mL/hr, Tylenol p.r.n., and vancomycin 250 mg 4 times a day. LABORATORY DATA: Shows hemoglobin 10.3, hematocrit 28.9, WBC 46,000, platelets is 248, PTT is 30. B lood gases show pH 7.34, pCO2 of 24, O2 of 60; that is on nasal cannula. Sodium 137, potassium 5.1, chloride 112, bicarbonate 15, BUN 101, creatinine 4.3, glucose is 180, calcium 7.0, phosphorus , magnesium 2.2, AST 244, ALT 82, alkaline phosphatase is 65, LDH is 2100. Troponin is , albumin 2.0. Chest x-ray showed bilateral infiltrates suggestive of pulmonary edema and effusion. IMPRESSION AND PLAN: Hemorrhagic shock with gastrointestinal bleed, requiring multiple units of transfusion. This may be component of aspiration pneumonia, history of hypertension in the past as well as myocardial infarcti on, coronary artery disease, history of coronary stent in the past, metabolic acidosis. Case discuss ed with nursing staff and Lasix has been given to attempt to avoid respiratory failure. He may benef it from early dialysis. Let us see how he does with diuretics. If does not respond, may need intubati on and then increasing his diuretics dialysis. Follow up hemoglobin and hematocrit. Being fol lowed by GI. Follow up x-ray, ABG, CBC, CMP in the morning. Critical care time spent . Shawn Ruff MD cc: [id number] TT: 08/27/2016 16:47:05 Confirmation # [id number] Dictation # [id number] ln
--- NOTE | 2016-08-27 17:54 | RAD ---
HISTORY: intubated, f/u COMPARISON: No prior. FINDINGS: LUNGS: Interval placement NGT, tip of which overlies left mid abdomen. ETT tip lies approximately 5.2 cm above jose. . Mild central pulmonary vascular congestive changes with bilateral alveolar-type infiltrates and possibly of bilateral effusions left greater than right PLEURA: No significant pleural effusion identified, no pneumothorax apparent. CARDIOVASCULAR: Normal. OSSEOUS STRUCTURES: No significant abnormalities. VISUALIZED UPPER ABDOMEN: Normal. OTHER FINDINGS: None. IMPRESSION: Interval placement NGT, tip of which overlies left mid abdomen. ETT tip lies approximately 5.2 cm above jose. . Mild central pulmonary vascular congestive changes with bilateral alveolar-type infiltrates and possibly of bilateral effusions left greater than right
[2016-08-27 17:58] LABS: HEMATOCRIT 27.6 % (42.0-52.0); MEAN CELL VOLUME 86.3 fL (80.0-105.0); MEAN CORPUSCULAR HEMOGLOBIN 30.6 pg (25.0-35.0); MEAN CORPUSCULAR HGB CONC 35.5 g/dl (31.0-37.0); MEAN PLATELET VOLUME 14.2 fl (7.0-11.0); RED CELL DISTRIBUTION WIDTH 15.4 % (11.5-14.5)
[2016-08-27] MEDS ORDERED: Sodium Chloride 0.9% 500 ML IV STA (21:24)
[2016-08-27 21:36] LABS: ALB/GLOB RATIO 0.8 (1.1-1.8); BILIRUBIN,TOTAL 0.5 mg/dL (0.2-1.3); POTASSIUM 4.8 mmol/L (3.6-5.0); TOTAL PROTEIN 4.3 g/dL (5.8-8.3)
[2016-08-28] MEDS: metroNIDAZOLE IV 500 mg/100 ml 100 ML IVPB SCH ×3 (05:26→21:14)
[2016-08-28 05:58] LABS: ARTERIAL BLOOD GAS HCO3 13.2 mmol/L (21-28); ARTERIAL BLOOD GAS O2 CAPACITY 15.5 mL/dl (16-24); ARTERIAL BLOOD GAS O2 CONTENT 15.2 ML/dl (15-23); ARTERIAL BLOOD GAS PH 7.33 (7.35-7.45); ARTERIAL BLOOD HGB O2 SAT 95.9 % (95.0-98.0); CARBOXYHEMOGLOBIN 1.1 % (0.5-1.5); HHB 2.1 % (0-5); METHEMOGLOBIN 0.9 % (0.0-3.0)
[2016-08-28 06:18] LABS: ALB/GLOB RATIO 0.8 (1.1-1.8); BASO # 0.02 [, K/mm3] (0.0-2.0); BASO % 0.1 % (0.0-3.0); BILIRUBIN,TOTAL 0.6 mg/dL (0.2-1.3); GRAN # 32.51 (1.4-6.5); GRAN % 91.8 % (50.0-68.0); HEMATOCRIT 26.4 % (42.0-52.0); LYMPH % 2.8 % (22.0-35.0); MEAN CORPUSCULAR HEMOGLOBIN 31.3 pg (25.0-35.0); MEAN CORPUSCULAR HGB CONC 35.6 g/dl (31.0-37.0); MEAN PLATELET VOLUME 13.7 fl (7.0-11.0); MONO # 1.9 (0.1-0.6); MONO % 5.3 % (1.0-6.0); PLATELET COUNT 210 [, 10^3/uL] (120.0-450.0); POTASSIUM 4.2 mmol/L (3.6-5.0); TOTAL PROTEIN 4.2 g/dL (5.8-8.3)
--- NOTE | 2016-08-28 06:25 | PN ---
DATE: 08/27/2016 SUBJECTIVE: The patient is seen and examined on the bedside, sleepy, arousable , moving all 4 extremities. No fever, no chills. Does have some cough and shortness of breath, audible wheezing. No significant bleeding noted since this morning from the rectum. No swelling of the legs. PHYSICAL EXAMINATION: VITAL SIGNS: Temperature 98, heart rate 73, respiratory rate 24, blood pressure 120/80 , and pulse oximetry is 97% on nasal cannula. HEENT: Head: Normocephalic, atraumatic. Eyes: PERRLA. Extraocular muscles intact. Conjunctivae are clear. Nose patent. NECK: Supple. No carotid bruit, JVD or thyromegaly. LUNGS: Have basilar crackles and scattered expiratory wheezing. HEART: S1, S2 positive. ABDOMEN: Soft, nontender. No organomegaly. EXTREMITIES: No edema, no cyanosis. NEUROLOGIC: The patient is sleepy, arousable, follows simple commands. MEDICATIONS: 1. Doxycycline. 2. Flagyl. 3. Cefepime. 4. Protonix. 5. Pulmicort. 6. IV fluid. 7. Bicarbonate. 8. Tylenol. 9. Vancomycin. LABORATORY DATA: Hemoglobin 10.3, hematocrit 28.9, white blood cells noted , platelets 248. PTT 30. Sodium 137, potassium 5.1, BUN 101, creatinine 4.3, AST 244, ALT 82. ASSESSMENT AND PLAN: The patient is an 81-year-old male with hemorrhagic shock with gastrointestinal bleeding, requiring multiple units of transfusion, came with a hemoglobin of 5 and now raised to 10, aspiration pneumonia, hypertension in the past. Also, myocardial infarction, coronary artery disease, history of coronary artery stents, metabolic acidosis. Continue on Lasix. I reviewed Dr. Ruff's notes. Benefit from early dialysis. Renal insufficiency. Follow H and H. Gastroenterology is on the case. Barber Instructor is on the case. Continue Brovana, doxycycline and Flagyl. Sliding scale and insulin. The patient is getting cefepime also. Protonix for GI prophylaxis. I reviewed Dr. Ruff's notes. Chest x-ray done. Interval placement of NG tube, the tip of which overlies the left mid abdomen. ETT tip lies approximately 5 cm above the jose. Mild central pulmonary vascular congestion. Changes with bilateral alveolar type infiltrates, possibly bilateral effusion, left greater than the right. I reviewed Dr. Jay's notes also and Dr. Dillard's notes and Dr. Palomino. We will follow up. Sana Myers MD cc: [id number] TT: 08/28/2016 05:10:59 Confirmation # [id number] Dictation # [id number] dn 08/28/2016 05:24:59 MTDD
[2016-08-28 06:35] LABS: WHITE BLOOD COUNT 35.4 [, 10^3/ul] (4.5-11.0)
[2016-08-28 07:04] LABS: ADD MANUAL DIFF? NO
[2016-08-28] MEDS: Insulin Lispro (humaLOG) LOW Coverage SC SCH ×4 (07:55→21:56)
--- NOTE | 2016-08-28 08:01 | CP.CCUPN ---
<Izabela Luis - Last Filed: 08/28/16 14:08> CCU Subjective - Physician Review Subjective (Free Text): 08/28/16 09:19 Intubated yesterday for abdominal agonal breath. T (lowest) 93.7 T: 98, HR 66, 101/53, O2 99 intubated i/o: 3413/1050 rodrigez; 1 melonic bm WBC: 44--> 35 Hb: 5.7 --> 9.4 s/p 4uRBC Plt: 591 --> 210, Hx ITP ABG: pH 7.33 (7.32), PCO2 25, PO2 = 91; Non-gap met acid, adequately compensated , suspected due to fluid overload vs melanoic diarrhea Isolated BP drops overnight, off propofol, but now propofol back on at Will have bedside EGD at 2pm CCU Objective - Vital Signs / Intake & Output Vital Signs (Last 4 hours): Vital Signs Pulse BP Pulse Ox 08/28/16 05:58 66 101/53 L 99 08/28/16 05:46 69 79/40 L 100 08/28/16 05:35 67 113/53 L 99 08/28/16 05:15 67 114/56 L 95 08/28/16 05:00 68 104/50 L 100 08/28/16 04:45 107/46 L 08/28/16 04:30 65 118/55 L 99 08/28/16 04:26 64 100 08/28/16 04:15 62 112/52 L 99 Intake and Output (Last 8hrs): Intake & Output 08/27/16 08/28/16 08/28/16 22:59 06:59 14:59 Intake Total 1175 2238 Output Total 600 450 Balance 575 1788 Weight 158 lb 4.8 oz Intake: IV 1175 2198 Right Antecubital 1175 Right Hand 2198 Oral 40 Output: Urine 600 450 Urethral (Rodrigez) 600 450 Other: Voiding Method Indwelling Catheter # Bowel Movements 2 1 - Physical Exam Physical Exam Limitations: Positive for: Other (Intubated) Head: Positive for: Atraumatic, Normocephalic Pupils: Positive for: PERRL Extroacular Muscles: Positive for: EOMI Conjunctiva: Positive for: Other (conjunctival pallor) Mouth: Positive for: Moist Mucous Membranes Neck: Positive for: MIDLINE TENDERNESS Respiratory/Chest: Positive for: Clear to Auscultation, Good Air Exchange, Other (vesicular breath sounds). Negative for: Respiratory Distress, Accessory Muscle Use, Rales, Retracting, Rhonchi Cardiovascular: Positive for: Regular Rate and Rhythm, Normal S1, S2. Negative for: Murmurs Abdomen: Positive for: Normal Bowel Sounds. Negative for: Tenderness, Distention, Peritoneal Signs Rectal: Positive for: Hemorrhoids (external), Other (Hematochezia). Negative for: Normal Rectal Tone (dilated rectal tone, soft prostate), Fissures Back: Positive for: Normal Inspection Upper Extremity: Negative for: Edema, Erythema Lower Extremity: Positive for: Edema (2+ Pitting edema of left LE, with long healed scars) Neurological: Negative for: Speech Normal (per son, slurred) Skin: Positive for: Dry, Normal Color, Abrasion (on left UE). Negative for: Warm (cool extremities), Rashes Psychiatric: Negative for: Alert (intubated on propofol) - Medications Active Medications: Active Medications Generic Name Dose Route Start Last Admin Trade Name Freq PRN Reason Stop Dose Admin Acetaminophen 650 mg 08/26/16 16:19 Tylenol 650 Mg Supp RC Q4H PRN Fever >100.4 F Arformoterol Tartrate 15 mcg 08/26/16 20:00 08/27/16 20:05 Brovana IH 15 mcg [id number] YUVAL Administration Budesonide 0.5 mg 08/26/16 20:00 08/27/16 20:05 Pulmicort Respules IH 0.5 mg [id number] YUVAL Administration Cefepime HCl 100 mls @ 100 mls/hr 08/26/16 22:00 08/27/16 21:08 Maxipime 1gm IVPB 100 mls/hr Q12 YUVAL Administration Protocol Metronidazole 100 mls @ 100 mls/hr 08/26/16 15:00 08/28/16 05:26 Flagyl IVPB 100 mls/hr Q8 YUVAL Administration Protocol Doxycycline Hyclate 100 mg/ 100 mls @ 100 mls/hr 08/27/16 10:00 08/27/16 22:13 Sodium Chloride IVPB 09/10/16 10:01 100 mls/hr Q12 YUVAL Administration Protocol Propofol 100 mls @ 2.041 mls/hr 08/27/16 14:38 04/16/17 23:20 Diprivan IV 15 mcg/kg/min .Q24H PRN Titration TITRATE PER MD ORDER Protocol 5 MCG/KG/MIN Sodium Bicarbonate 75 meq/ 1,075 mls @ 60 mls/hr 08/27/16 15:20 08/27/16 20:36 Sodium Chloride IV 60 mls/hr .[id number] YUVAL Administration Insulin Human Lispro 0 units 08/26/16 22:00 08/28/16 07:55 Humalog Low SC Not Given ACHS YUVAL Protocol Pantoprazole Sodium 40 mg 08/26/16 22:00 08/27/16 21:13 Protonix Inj IVP 40 mg Q12 YUVAL Administration Vancomycin HCl 250 mg 08/27/16 14:00 08/27/16 21:18 Vancocin 25 Mg/Ml (Oral Use) PO 250 mg QID YUVAL Administration Protocol - Patient Studies Lab Studies: Microbiology Studies 08/26/16 16:30 MRSA Culture (Admit) - Final Nose MRSA NOT DETECTED Lab Studies 08/28/16 08/27/16 08/27/16 Range/Units 05:30 22:20 20:00 WBC 35.4 H* (4.5-11.0) 10^3/ul RBC 3.00 L (3.5-6.1) 10^6/uL Hgb 9.4 L (14.0-18.0) gm/dL Hct 26.4 L (42.0-52.0) % MCV 88.0 (80.0-105.0) fL MCH 31.3 (25.0-35.0) pg MCHC 35.6 (31.0-37.0) g/dl RDW 16.0 H (11.5-14.5) % Plt Count 210 (120.0-450.0) 10^3/uL MPV 13.7 H (7.0-11.0) fl Gran % 91.8 H (50.0-68.0) % Lymph % (Auto) 2.8 L (22.0-35.0) % Hood % (Auto) 5.3 (1.0-6.0) % Eos % (Auto) 0.0 L (1.5-5.0) % Baso % (Auto) 0.1 (0.0-3.0) % Gran # 32.51 H (1.4-6.5) Lymph # 1.0 L (1.2-3.4) Hood # 1.9 H (0.1-0.6) Eos # 0.0 (0.0-0.7) Baso # 0.02 (0.0-2.0) K/mm3 Retic Count (0.5-1.5) % APTT (23.7-30.8) Seconds pCO2 25 L (35-45) mm/Hg pO2 91.0 (80-100) mm/Hg HCO3 13.2 L (21-28) mmol/L ABG pH 7.33 L (7.35-7.45) ABG Total CO2 14.0 L (22-28) mmol.L ABG O2 Saturation 97.9 (95-98) % ABG O2 Content 15.2 (15-23) ML/dl ABG Base Excess -11.2 L (-2.0-3.0) mmol/L ABG Hemoglobin 11.2 L (11.7-17.4) g/dL ABG Carboxyhemoglobin 1.1 (0.5-1.5) % POC ABG HHb (Measured) 2.1 (0-5) % ABG Methemoglobin 0.9 (0.0-3.0) % ABG O2 Capacity 15.5 L (16-24) mL/dl ABG Potassium (3.6-5.2) mmol/L Hgb O2 Saturation 95.9 (95.0-98.0) % Glucose (75-110) mg/dl Lactate (0.7-2.1) mmol/L Mechanical Rate FiO2 60.0 % Tidal Volume PEEP Sodium 138 137 (132-148) mmol/L Potassium 4.2 4.8 (3.6-5.0) mmol/L Chloride 112 H 111 H (98-107) mmol/L Carbon Dioxide 18 L 16 L (21-33) mmol/L Anion Gap 12 15 (10-20) BUN 106 H 108 H (7-21) mg/dL Creatinine 4.6 H 4.5 H (0.5-1.4) mg/dL Est GFR ( Amer) 15 15 Est GFR (Non-Af Amer) 12 13 POC Glucose (mg/dL) 190 H (65-110) mg/dL Random Glucose 147 H 174 H (70-110) mg/dL Lactic Acid 0.8 (0.7-2.1) mmol/L Calcium 7.0 L 7.0 L (8.4-10.5) mg/dL Phosphorus (2.5-4.5) mg/dL Magnesium (1.7-2.2) mg/dL Ferritin ng/mL Total Bilirubin 0.6 0.5 (0.2-1.3) mg/dL AST 101 H 157 H (15-59) U/L ALT 72 H 78 H (7-56) U/L Alkaline Phosphatase 56 59 (38-133) U/L Lactate Dehydrogenase (333-699) U/L Total Creatine Kinase (35-230) U/L CK-MB (CK-2) (0.0-3.6) ng/mL CK-MB (CK-2) % (2.5-3.0) % Troponin I ng/mL Total Protein 4.2 L 4.3 L (5.8-8.3) g/dL Albumin 1.8 L 1.9 L (3.0-4.8) g/dL Globulin 2.4 2.4 gm/dL Albumin/Globulin Ratio 0.8 L 0.8 L (1.1-1.8) Procalcitonin (0.19-0.49) NG/ML Arterial Blood Potassium (3.6-5.2) mmol/L Ur L.pneumophila Ag (NEGATIVE) 08/27/16 08/27/16 08/27/16 Range/Units 17:50 16:12 15:30 WBC 44.0 H* (4.5-11.0) 10^3/ul RBC 3.20 L (3.5-6.1) 10^6/uL Hgb 9.8 L (14.0-18.0) gm/dL Hct 27.6 L (42.0-52.0) % MCV 86.3 (80.0-105.0) fL MCH 30.6 (25.0-35.0) pg MCHC 35.5 (31.0-37.0) g/dl RDW 15.4 H (11.5-14.5) % Plt Count 196 (120.0-450.0) 10^3/uL MPV 14.2 H (7.0-11.0) fl Gran % (50.0-68.0) % Lymph % (Auto) (22.0-35.0) % Hood % (Auto) (1.0-6.0) % Eos % (Auto) (1.5-5.0) % Baso % (Auto) (0.0-3.0) % Gran # (1.4-6.5) Lymph # (1.2-3.4) Hood # (0.1-0.6) Eos # (0.0-0.7) Baso # (0.0-2.0) K/mm3 Retic Count (0.5-1.5) % APTT (23.7-30.8) Seconds pCO2 27 L (35-45) mm/Hg pO2 248.0 H (80-100) mm/Hg HCO3 13.9 L (21-28) mmol/L ABG pH 7.32 L (7.35-7.45) ABG Total CO2 14.7 L (22-28) mmol.L ABG O2 Saturation 99.5 H (95-98) % ABG O2 Content (15-23) ML/dl ABG Base Excess -10.6 L (-2.0-3.0) mmol/L ABG Hemoglobin (11.7-17.4) g/dL ABG Carboxyhemoglobin (0.5-1.5) % POC ABG HHb (Measured) (0-5) % ABG Methemoglobin (0.0-3.0) % ABG O2 Capacity (16-24) mL/dl ABG Potassium 4.3 (3.6-5.2) mmol/L Hgb O2 Saturation (95.0-98.0) % Glucose 200 H (75-110) mg/dl Lactate 1.3 (0.7-2.1) mmol/L Mechanical Rate 14 FiO2 100.0 % Tidal Volume 500 PEEP 5 Sodium 138.0 (132-148) mmol/L Potassium (3.6-5.0) mmol/L Chloride 118.0 H (98-107) mmol/L Carbon Dioxide (21-33) mmol/L Anion Gap (10-20) BUN (7-21) mg/dL Creatinine (0.5-1.4) mg/dL Est GFR ( Amer) Est GFR (Non-Af Amer) POC Glucose (mg/dL) 219 H (65-110) mg/dL Random Glucose (70-110) mg/dL Lactic Acid 1.5 (0.7-2.1) mmol/L Calcium (8.4-10.5) mg/dL Phosphorus (2.5-4.5) mg/dL Magnesium (1.7-2.2) mg/dL Ferritin ng/mL Total Bilirubin (0.2-1.3) mg/dL AST (15-59) U/L ALT (7-56) U/L Alkaline Phosphatase (38-133) U/L Lactate Dehydrogenase (333-699) U/L Total Creatine Kinase (35-230) U/L CK-MB (CK-2) (0.0-3.6) ng/mL CK-MB (CK-2) % (2.5-3.0) % Troponin I ng/mL Total Protein (5.8-8.3) g/dL Albumin (3.0-4.8) g/dL Globulin gm/dL Albumin/Globulin Ratio (1.1-1.8) Procalcitonin (0.19-0.49) NG/ML Arterial Blood Potassium 4.3 (3.6-5.2) mmol/L Ur L.pneumophila Ag (NEGATIVE) 08/27/16 08/27/16 08/27/16 Range/Units 11:33 09:45 09:28 WBC 45.7 H* (4.5-11.0) 10^3/ul RBC 3.31 L (3.5-6.1) 10^6/uL Hgb 10.3 L (14.0-18.0) gm/dL Hct 28.9 L (42.0-52.0) % MCV 87.3 (80.0-105.0) fL MCH 31.1 (25.0-35.0) pg MCHC 35.6 (31.0-37.0) g/dl RDW 15.1 H (11.5-14.5) % Plt Count 248 (120.0-450.0) 10^3/uL MPV 14.1 H (7.0-11.0) fl Gran % (50.0-68.0) % Lymph % (Auto) (22.0-35.0) % Hood % (Auto) (1.0-6.0) % Eos % (Auto) (1.5-5.0) % Baso % (Auto) (0.0-3.0) % Gran # (1.4-6.5) Lymph # (1.2-3.4) Hood # (0.1-0.6) Eos # (0.0-0.7) Baso # (0.0-2.0) K/mm3 Retic Count 1.58 H (0.5-1.5) % APTT 29.7 (23.7-30.8) Seconds pCO2 (35-45) mm/Hg pO2 (80-100) mm/Hg HCO3 (21-28) mmol/L ABG pH (7.35-7.45) ABG Total CO2 (22-28) mmol.L ABG O2 Saturation (95-98) % ABG O2 Content (15-23) ML/dl ABG Base Excess (-2.0-3.0) mmol/L ABG Hemoglobin (11.7-17.4) g/dL ABG Carboxyhemoglobin (0.5-1.5) % POC ABG HHb (Measured) (0-5) % ABG Methemoglobin (0.0-3.0) % ABG O2 Capacity (16-24) mL/dl ABG Potassium (3.6-5.2) mmol/L Hgb O2 Saturation (95.0-98.0) % Glucose (75-110) mg/dl Lactate (0.7-2.1) mmol/L Mechanical Rate FiO2 % Tidal Volume PEEP Sodium (132-148) mmol/L Potassium (3.6-5.0) mmol/L Chloride (98-107) mmol/L Carbon Dioxide (21-33) mmol/L Anion Gap (10-20) BUN (7-21) mg/dL Creatinine (0.5-1.4) mg/dL Est GFR ( Amer) Est GFR (Non-Af Amer) POC Glucose (mg/dL) 263 H (65-110) mg/dL Random Glucose (70-110) mg/dL Lactic Acid 1.3 (0.7-2.1) mmol/L Calcium (8.4-10.5) mg/dL Phosphorus (2.5-4.5) mg/dL Magnesium (1.7-2.2) mg/dL Ferritin ng/mL Total Bilirubin (0.2-1.3) mg/dL AST (15-59) U/L ALT (7-56) U/L Alkaline Phosphatase (38-133) U/L Lactate Dehydrogenase (333-699) U/L Total Creatine Kinase (35-230) U/L CK-MB (CK-2) (0.0-3.6) ng/mL CK-MB (CK-2) % (2.5-3.0) % Troponin I ng/mL Total Protein (5.8-8.3) g/dL Albumin (3.0-4.8) g/dL Globulin gm/dL Albumin/Globulin Ratio (1.1-1.8) Procalcitonin (0.19-0.49) NG/ML Arterial Blood Potassium (3.6-5.2) mmol/L Ur L.pneumophila Ag Negative (NEGATIVE) 08/27/16 08/27/16 08/27/16 Range/Units 09:20 09:00 08:45 WBC (4.5-11.0) 10^3/ul RBC (3.5-6.1) 10^6/uL Hgb (14.0-18.0) gm/dL Hct (42.0-52.0) % MCV (80.0-105.0) fL MCH (25.0-35.0) pg MCHC (31.0-37.0) g/dl RDW (11.5-14.5) % Plt Count (120.0-450.0) 10^3/uL MPV (7.0-11.0) fl Gran % (50.0-68.0) % Lymph % (Auto) (22.0-35.0) % Hood % (Auto) (1.0-6.0) % Eos % (Auto) (1.5-5.0) % Baso % (Auto) (0.0-3.0) % Gran # (1.4-6.5) Lymph # (1.2-3.4) Hood # (0.1-0.6) Eos # (0.0-0.7) Baso # (0.0-2.0) K/mm3 Retic Count (0.5-1.5) % APTT (23.7-30.8) Seconds pCO2 (35-45) mm/Hg pO2 (80-100) mm/Hg HCO3 (21-28) mmol/L ABG pH (7.35-7.45) ABG Total CO2 (22-28) mmol.L ABG O2 Saturation (95-98) % ABG O2 Content (15-23) ML/dl ABG Base Excess (-2.0-3.0) mmol/L ABG Hemoglobin (11.7-17.4) g/dL ABG Carboxyhemoglobin (0.5-1.5) % POC ABG HHb (Measured) (0-5) % ABG Methemoglobin (0.0-3.0) % ABG O2 Capacity (16-24) mL/dl ABG Potassium (3.6-5.2) mmol/L Hgb O2 Saturation (95.0-98.0) % Glucose (75-110) mg/dl Lactate (0.7-2.1) mmol/L Mechanical Rate FiO2 % Tidal Volume PEEP Sodium 137 (132-148) mmol/L Potassium 5.1 H (3.6-5.0) mmol/L Chloride 112 H (98-107) mmol/L Carbon Dioxide 15 L (21-33) mmol/L Anion Gap 15 (10-20) BUN 101 H (7-21) mg/dL Creatinine 4.3 H (0.5-1.4) mg/dL Est GFR ( Amer) 16 Est GFR (Non-Af Amer) 13 POC Glucose (mg/dL) (65-110) mg/dL Random Glucose 180 H (70-110) mg/dL Lactic Acid (0.7-2.1) mmol/L Calcium 7.0 L (8.4-10.5) mg/dL Phosphorus 4.8 H (2.5-4.5) mg/dL Magnesium 2.2 (1.7-2.2) mg/dL Ferritin 442.0 ng/mL Total Bilirubin 0.7 (0.2-1.3) mg/dL AST 244 H (15-59) U/L ALT 82 H (7-56) U/L Alkaline Phosphatase 65 (38-133) U/L Lactate Dehydrogenase 2100 H 2122 H (333-699) U/L Total Creatine Kinase 991 H (35-230) U/L CK-MB (CK-2) 96.3 H (0.0-3.6) ng/mL CK-MB (CK-2) % 9.7 H (2.5-3.0) % Troponin I 164.00 H* ng/mL Total Protein 4.5 L (5.8-8.3) g/dL Albumin 2.0 L (3.0-4.8) g/dL Globulin 2.5 gm/dL Albumin/Globulin Ratio 0.8 L (1.1-1.8) Procalcitonin 3.10 H (0.19-0.49) NG/ML Arterial Blood Potassium (3.6-5.2) mmol/L Ur L.pneumophila Ag (NEGATIVE) 08/27/16 Range/Units 08:00 WBC (4.5-11.0) 10^3/ul RBC (3.5-6.1) 10^6/uL Hgb (14.0-18.0) gm/dL Hct (42.0-52.0) % MCV (80.0-105.0) fL MCH (25.0-35.0) pg MCHC (31.0-37.0) g/dl RDW (11.5-14.5) % Plt Count (120.0-450.0) 10^3/uL MPV (7.0-11.0) fl Gran % (50.0-68.0) % Lymph % (Auto) (22.0-35.0) % Hood % (Auto) (1.0-6.0) % Eos % (Auto) (1.5-5.0) % Baso % (Auto) (0.0-3.0) % Gran # (1.4-6.5) Lymph # (1.2-3.4) Hood # (0.1-0.6) Eos # (0.0-0.7) Baso # (0.0-2.0) K/mm3 Retic Count (0.5-1.5) % APTT (23.7-30.8) Seconds pCO2 (35-45) mm/Hg pO2 (80-100) mm/Hg HCO3 (21-28) mmol/L ABG pH (7.35-7.45) ABG Total CO2 (22-28) mmol.L ABG O2 Saturation (95-98) % ABG O2 Content (15-23) ML/dl ABG Base Excess (-2.0-3.0) mmol/L ABG Hemoglobin (11.7-17.4) g/dL ABG Carboxyhemoglobin (0.5-1.5) % POC ABG HHb (Measured) (0-5) % ABG Methemoglobin (0.0-3.0) % ABG O2 Capacity (16-24) mL/dl ABG Potassium (3.6-5.2) mmol/L Hgb O2 Saturation (95.0-98.0) % Glucose (75-110) mg/dl Lactate (0.7-2.1) mmol/L Mechanical Rate FiO2 % Tidal Volume PEEP Sodium (132-148) mmol/L Potassium (3.6-5.0) mmol/L Chloride (98-107) mmol/L Carbon Dioxide (21-33) mmol/L Anion Gap (10-20) BUN (7-21) mg/dL Creatinine (0.5-1.4) mg/dL Est GFR ( Amer) Est GFR (Non-Af Amer) POC Glucose (mg/dL) 212 H (65-110) mg/dL Random Glucose (70-110) mg/dL Lactic Acid (0.7-2.1) mmol/L Calcium (8.4-10.5) mg/dL Phosphorus (2.5-4.5) mg/dL Magnesium (1.7-2.2) mg/dL Ferritin ng/mL Total Bilirubin (0.2-1.3) mg/dL AST (15-59) U/L ALT (7-56) U/L Alkaline Phosphatase (38-133) U/L Lactate Dehydrogenase (333-699) U/L Total Creatine Kinase (35-230) U/L CK-MB (CK-2) (0.0-3.6) ng/mL CK-MB (CK-2) % (2.5-3.0) % Troponin I ng/mL Total Protein (5.8-8.3) g/dL Albumin (3.0-4.8) g/dL Globulin gm/dL Albumin/Globulin Ratio (1.1-1.8) Procalcitonin (0.19-0.49) NG/ML Arterial Blood Potassium (3.6-5.2) mmol/L Ur L.pneumophila Ag (NEGATIVE) Laboratory Results - last 24 hr 08/27/16 08/27/16 08/27/16 08:00 08:45 09:00 WBC RBC Hgb Hct MCV MCH MCHC RDW Plt Count MPV Gran % Lymph % (Auto) Hood % (Auto) Eos % (Auto) Baso % (Auto) Gran # Lymph # Hood # Eos # Baso # Retic Count APTT pCO2 pO2 HCO3 ABG pH ABG Total CO2 ABG O2 Saturation ABG O2 Content ABG Base Excess ABG Hemoglobin ABG Carboxyhemoglobin POC ABG HHb (Measured) ABG Methemoglobin ABG O2 Capacity ABG Potassium Hgb O2 Saturation Glucose Lactate Mechanical Rate FiO2 Tidal Volume PEEP Sodium 137 Potassium 5.1 H Chloride 112 H Carbon Dioxide 15 L Anion Gap 15 BUN 101 H Creatinine 4.3 H Est GFR ( Amer) 16 Est GFR (Non-Af Amer) 13 POC Glucose (mg/dL) 212 H Random Glucose 180 H Lactic Acid Calcium 7.0 L Phosphorus 4.8 H Magnesium 2.2 Ferritin 442.0 Total Bilirubin 0.7 AST 244 H ALT 82 H Alkaline Phosphatase 65 Lactate Dehydrogenase 2122 H 2100 H Total Creatine Kinase 991 H CK-MB (CK-2) 96.3 H CK-MB (CK-2) % 9.7 H Troponin I 164.00 H* Total Protein 4.5 L Albumin 2.0 L Globulin 2.5 Albumin/Globulin Ratio 0.8 L Procalcitonin Arterial Blood Potassium Ur L.pneumophila Ag 08/27/16 08/27/16 08/27/16 09:20 09:28 09:45 WBC 45.7 H* RBC 3.31 L Hgb 10.3 L Hct 28.9 L MCV 87.3 MCH 31.1 MCHC 35.6 RDW 15.1 H Plt Count 248 MPV 14.1 H Gran % Lymph % (Auto) Hood % (Auto) Eos % (Auto) Baso % (Auto) Gran # Lymph # Hood # Eos # Baso # Retic Count 1.58 H APTT 29.7 pCO2 pO2 HCO3 ABG pH ABG Total CO2 ABG O2 Saturation ABG O2 Content ABG Base Excess ABG Hemoglobin ABG Carboxyhemoglobin POC ABG HHb (Measured) ABG Methemoglobin ABG O2 Capacity ABG Potassium Hgb O2 Saturation Glucose Lactate Mechanical Rate FiO2 Tidal Volume PEEP Sodium Potassium Chloride Carbon Dioxide Anion Gap BUN Creatinine Est GFR ( Amer) Est GFR (Non-Af Amer) POC Glucose (mg/dL) Random Glucose Lactic Acid 1.3 Calcium Phosphorus Magnesium Ferritin Total Bilirubin AST ALT Alkaline Phosphatase Lactate Dehydrogenase Total Creatine Kinase CK-MB (CK-2) CK-MB (CK-2) % Troponin I Total Protein Albumin Globulin Albumin/Globulin Ratio Procalcitonin 3.10 H Arterial Blood Potassium Ur L.pneumophila Ag Negative 08/27/16 08/27/16 08/27/16 11:33 15:30 16:12 WBC RBC Hgb Hct MCV MCH MCHC RDW Plt Count MPV Gran % Lymph % (Auto) Hood % (Auto) Eos % (Auto) Baso % (Auto) Gran # Lymph # Hood # Eos # Baso # Retic Count APTT pCO2 27 L pO2 248.0 H HCO3 13.9 L ABG pH 7.32 L ABG Total CO2 14.7 L ABG O2 Saturation 99.5 H ABG O2 Content ABG Base Excess -10.6 L ABG Hemoglobin ABG Carboxyhemoglobin POC ABG HHb (Measured) ABG Methemoglobin ABG O2 Capacity ABG Potassium 4.3 Hgb O2 Saturation Glucose 200 H Lactate 1.3 Mechanical Rate 14 FiO2 100.0 Tidal Volume 500 PEEP 5 Sodium 138.0 Potassium Chloride 118.0 H Carbon Dioxide Anion Gap BUN Creatinine Est GFR ( Amer) Est GFR (Non-Af Amer) POC Glucose (mg/dL) 263 H 219 H Random Glucose Lactic Acid Calcium Phosphorus Magnesium Ferritin Total Bilirubin AST ALT Alkaline Phosphatase Lactate Dehydrogenase Total Creatine Kinase CK-MB (CK-2) CK-MB (CK-2) % Troponin I Total Protein Albumin Globulin Albumin/Globulin Ratio Procalcitonin Arterial Blood Potassium 4.3 Ur L.pneumophila Ag 08/27/16 08/27/16 08/27/16 17:50 20:00 22:20 WBC 44.0 H* RBC 3.20 L Hgb 9.8 L Hct 27.6 L MCV 86.3 MCH 30.6 MCHC 35.5 RDW 15.4 H Plt Count 196 MPV 14.2 H Gran % Lymph % (Auto) Hood % (Auto) Eos % (Auto) Baso % (Auto) Gran # Lymph # Hood # Eos # Baso # Retic Count APTT pCO2 pO2 HCO3 ABG pH ABG Total CO2 ABG O2 Saturation ABG O2 Content ABG Base Excess ABG Hemoglobin ABG Carboxyhemoglobin POC ABG HHb (Measured) ABG Methemoglobin ABG O2 Capacity ABG Potassium Hgb O2 Saturation Glucose Lactate Mechanical Rate FiO2 Tidal Volume PEEP Sodium 137 Potassium 4.8 Chloride 111 H Carbon Dioxide 16 L Anion Gap 15 BUN 108 H Creatinine 4.5 H Est GFR ( Amer) 15 Est GFR (Non-Af Amer) 13 POC Glucose (mg/dL) 190 H Random Glucose 174 H Lactic Acid 1.5 Calcium 7.0 L Phosphorus Magnesium Ferritin Total Bilirubin 0.5 AST 157 H ALT 78 H Alkaline Phosphatase 59 Lactate Dehydrogenase Total Creatine Kinase CK-MB (CK-2) CK-MB (CK-2) % Troponin I Total Protein 4.3 L Albumin 1.9 L Globulin 2.4 Albumin/Globulin Ratio 0.8 L Procalcitonin Arterial Blood Potassium Ur L.pneumophila Ag 08/28/16 05:30 WBC 35.4 H* RBC 3.00 L Hgb 9.4 L Hct 26.4 L MCV 88.0 MCH 31.3 MCHC 35.6 RDW 16.0 H Plt Count 210 MPV 13.7 H Gran % 91.8 H Lymph % (Auto) 2.8 L Hood % (Auto) 5.3 Eos % (Auto) 0.0 L Baso % (Auto) 0.1 Gran # 32.51 H Lymph # 1.0 L Hood # 1.9 H Eos # 0.0 Baso # 0.02 Retic Count APTT pCO2 25 L pO2 91.0 HCO3 13.2 L ABG pH 7.33 L ABG Total CO2 14.0 L ABG O2 Saturation 97.9 ABG O2 Content 15.2 ABG Base Excess -11.2 L ABG Hemoglobin 11.2 L ABG Carboxyhemoglobin 1.1 POC ABG HHb (Measured) 2.1 ABG Methemoglobin 0.9 ABG O2 Capacity 15.5 L ABG Potassium Hgb O2 Saturation 95.9 Glucose Lactate Mechanical Rate FiO2 60.0 Tidal Volume PEEP Sodium 138 Potassium 4.2 Chloride 112 H Carbon Dioxide 18 L Anion Gap 12 BUN 106 H Creatinine 4.6 H Est GFR ( Amer) 15 Est GFR (Non-Af Amer) 12 POC Glucose (mg/dL) Random Glucose 147 H Lactic Acid 0.8 Calcium 7.0 L Phosphorus Magnesium Ferritin Total Bilirubin 0.6 AST 101 H ALT 72 H Alkaline Phosphatase 56 Lactate Dehydrogenase Total Creatine Kinase CK-MB (CK-2) CK-MB (CK-2) % Troponin I Total Protein 4.2 L Albumin 1.8 L Globulin 2.4 Albumin/Globulin Ratio 0.8 L Procalcitonin Arterial Blood Potassium Ur L.pneumophila Ag Fingerstick Blood Sugar Results: 160 Assessment/Plan - Assessment and Plan (Free Text) Plan: 82 years old male was found unconscious on the floor on Sunday (08/26) covered with melonic stool with maroon blood clots. Pt had worsened L weakness compared to baseline, slurred speech, and new L nathan-neglect on Good Sunday (08/25). He has NSTEMI \ GI bleed \ Blood loss anemia \ ALLYSON on CKD \ Elevated LFT \ PNA \ Sepsis \ Hx ITP \ ro CVA - Pt intubated for agonal breath due to metabolic acidosis - Active GI bleed, active, likely upper, likely from PUD (Plavix vs H pylori vs immunogenic) vs infectious vs autoimmune vs ischemic. Unlikely from trauma. Hb 5.7 --> 9.4 s/p 4u pRBC, With Hb this low, likely a chronic bleeder. - NSTEMI - AMS - metabolic encephalopathy due to electrolytes vs sepsis; suspected stroke - Suspected new stroke - new slur speech, L hemineglect, suddened worsening of L weakness - Sepsis - PNA vs UTI. CT confirmed protitis. 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 - Brovana Q12; Pulmicort Q12 (hold because intubation) Cardio - Hx paroxysmal a-fib, CAD with stent, HTN, HLD; Hx L Carotid endartectomy - Home meds: Aliskiren/Amlodipine 150/5mg daily; Lisinopril 2.5 PO; Metoprolol 50 BIDOn metoprolol - ON HOLD - NSTEMI - not candidate for catherterization. Not candidate for heparin drip for GI bleed - [ ] trend cardiac enzyme, CMP, Mg/Phos, and H/H q6 - Hb goal in [place] is above 8-9. - [ ] echocardiogram Pending Pulm - Severe sepsis with CAP - Left pleural effusion. Right lower lobe infiltrate. - Increased secretion - Chest PT, Duoneb PRN, Suction PRN, pulm toiletry PRN GI - Hb 5.6 --> 9 after 4p RBC - NPO - Protonix IV BID - C.diff toxin and antigen sent - [ ] Bedside Endoscopy with sedation this afternoon - Chest, abdomen, pelvis w.o contrast: Proctitis - Abd u/s: Cholelithiasis with gallbladder wall thickening; sma;; perocholecystic fluid. No sono martinez sign. Fatty liver Nephro - strict i/o. u/o adequate - Bicarb 75meq with 1/2 NS @ 60 Endo - Hx IDDM - ISSS-low. Accu-check ACHS - hyperK s/p D50, insulin, albuterol. Avoid Kayexaltate in setting of GI bleed Heme - Per heme, cancel platelet - Hx ITP - LE dupplers b/l negative - DIC vs HUS vs TTP (Renal failure, AMS, fever, WBC keenan high, low plt) - concern hemolytic anemia - hepatitis, babesia, malaric, retic, LDH, heptoglobin, hemolytic anemia workip, mycoplasma - Anemia, acute on chronic, 2/2 GI bleed, ASA/Plavix on hold, s/p 4u RBC - Chronic ITP, failed outpt steroids and rituximab, on thrombopoeitin receptor agonist since 2014, failed to f/u, Promacta on hold for now. Goal plt on promacta should be 50K - DIC/HUS/TTP work up: Fibrinogen, peripheral smear, reticulocytes, LDH, haptoglobin, indirect bilirubin, CMP Infectious - flagyl (day 3), doxy for atypical (day 2) Vancomycin PO (day 3); OFF cefepime (day 2) - PNA work up: urine legionella, M. Pneumonia EIA, mycoplasma Igg, procal - Hemorrhagic stool work up: Babesia, malaria, GBM Ab, parvo B19, ANCA, mau - s/p yunior collins - Barrios culture sent. No growth 24 hours. Negative MRSA screen - tylenol PRN Prophlaxis - SCD - Protonix GI bleed dose Prognosis - Poor: Pneumonia severity index 257: Risk V. 30% mortality - Full Code S/R/D/w Dr. Lizzie Rouse. - Date & Time Date: 08/28/16 Time: 08:01 <Nasim PHILIP,Cristi H - Last Filed: 08/28/16 14:53> CCU Objective - Vital Signs / Intake & Output Vital Signs (Last 4 hours): Vital Signs Pulse BP Pulse Ox 08/28/16 14:15 66 123/65 100 08/28/16 14:00 65 121/91 H 100 08/28/16 13:58 66 100 08/28/16 13:57 64 100 08/28/16 13:45 60 109/72 100 08/28/16 13:30 68 130/76 100 08/28/16 13:15 64 132/68 100 08/28/16 13:00 70 139/80 100 08/28/16 12:45 67 132/75 100 08/28/16 12:30 64 131/74 100 08/28/16 12:16 68 100/42 L 98 08/28/16 12:00 66 120/63 100 08/28/16 11:45 65 133/73 100 08/28/16 11:30 62 143/78 100 08/28/16 11:15 68 125/67 100 08/28/16 11:00 63 132/67 100 Intake and Output (Last 8hrs): Intake & Output 08/27/16 08/28/16 08/28/16 22:59 06:59 14:59 Intake Total 1175 2238 Output Total 600 450 Balance 575 1788 Weight 158 lb 4.8 oz Intake: IV 1175 2198 Right Antecubital 1175 Right Hand 2198 Oral 40 Output: Urine 600 450 Urethral (Rodrigez) 600 450 Other: Voiding Method Indwelling Catheter Indwelling Catheter # Bowel Movements 2 1 - Medications Active Medications: Active Medications Generic Name Dose Route Start Last Admin Trade Name Freq PRN Reason Stop Dose Admin Acetaminophen 650 mg 08/26/16 16:19 Tylenol 650 Mg Supp RC Q4H PRN Fever >100.4 F Arformoterol Tartrate 15 mcg 08/26/16 20:00 08/28/16 08:16 Brovana IH 15 mcg [id number] YUVAL Administration Budesonide 0.5 mg 08/26/16 20:00 08/28/16 08:16 Pulmicort Respules IH 0.5 mg [id number] YUVAL Administration Metronidazole 100 mls @ 100 mls/hr 08/26/16 15:00 08/28/16 13:48 Flagyl IVPB 100 mls/hr Q8 YUVAL Administration Protocol Doxycycline Hyclate 100 mg/ 100 mls @ 100 mls/hr 08/27/16 10:00 08/28/16 09:01 Sodium Chloride IVPB 09/10/16 10:01 100 mls/hr Q12 YUVAL Administration Protocol Propofol 100 mls @ 2.041 mls/hr 08/27/16 14:38 08/28/16 12:24 Diprivan IV 8.165 mls/hr .Q24H PRN Administration TITRATE PER MD ORDER Protocol 5 MCG/KG/MIN Sodium Bicarbonate 75 meq/ 1,075 mls @ 60 mls/hr 08/27/16 15:20 08/27/16 20:36 Sodium Chloride IV 60 mls/hr .[id number] YUVAL Administration Insulin Human Lispro 0 units 08/26/16 22:00 08/28/16 12:02 Humalog Low SC Not Given ACHS YUVAL Protocol Pantoprazole Sodium 40 mg 08/26/16 22:00 08/28/16 09:03 Protonix Inj IVP 40 mg Q12 YUVAL Administration Vancomycin HCl 250 mg 08/28/16 14:00 08/28/16 13:47 Vancocin 25 Mg/Ml (Oral Use) PO 250 mg QID YUVAL Administration Protocol - Patient Studies Lab Studies: Microbiology Studies 08/27/16 13:53 C. difficile Antigen & Toxin A,B (M - Final Stool No growth. 08/27/16 09:45 Blood Culture - Preliminary Blood NO GROWTH AFTER 24 HOURS 08/27/16 09:45 Blood Culture - Preliminary Blood NO GROWTH AFTER 24 HOURS 08/26/16 16:30 MRSA Culture (Admit) - Final Nose MRSA NOT DETECTED Lab Studies 08/28/16 08/28/16 08/27/16 Range/Units 07:13 05:30 22:20 WBC 35.4 H* (4.5-11.0) 10^3/ul RBC 3.00 L (3.5-6.1) 10^6/uL Hgb 9.4 L (14.0-18.0) gm/dL Hct 26.4 L (42.0-52.0) % MCV 88.0 (80.0-105.0) fL MCH 31.3 (25.0-35.0) pg MCHC 35.6 (31.0-37.0) g/dl RDW 16.0 H (11.5-14.5) % Plt Count 210 (120.0-450.0) 10^3/uL MPV 13.7 H (7.0-11.0) fl Gran % 91.8 H (50.0-68.0) % Lymph % (Auto) 2.8 L (22.0-35.0) % Hood % (Auto) 5.3 (1.0-6.0) % Eos % (Auto) 0.0 L (1.5-5.0) % Baso % (Auto) 0.1 (0.0-3.0) % Gran # 32.51 H (1.4-6.5) Lymph # 1.0 L (1.2-3.4) Hood # 1.9 H (0.1-0.6) Eos # 0.0 (0.0-0.7) Baso # 0.02 (0.0-2.0) K/mm3 pCO2 25 L (35-45) mm/Hg pO2 91.0 (80-100) mm/Hg HCO3 13.2 L (21-28) mmol/L ABG pH 7.33 L (7.35-7.45) ABG Total CO2 14.0 L (22-28) mmol.L ABG O2 Saturation 97.9 (95-98) % ABG O2 Content 15.2 (15-23) ML/dl ABG Base Excess -11.2 L (-2.0-3.0) mmol/L ABG Hemoglobin 11.2 L (11.7-17.4) g/dL ABG Carboxyhemoglobin 1.1 (0.5-1.5) % POC ABG HHb (Measured) 2.1 (0-5) % ABG Methemoglobin 0.9 (0.0-3.0) % ABG O2 Capacity 15.5 L (16-24) mL/dl ABG Potassium (3.6-5.2) mmol/L Hgb O2 Saturation 95.9 (95.0-98.0) % Glucose (75-110) mg/dl Lactate (0.7-2.1) mmol/L Mechanical Rate FiO2 60.0 % Tidal Volume PEEP Sodium 138 (132-148) mmol/L Potassium 4.2 (3.6-5.0) mmol/L Chloride 112 H (98-107) mmol/L Carbon Dioxide 18 L (21-33) mmol/L Anion Gap 12 (10-20) BUN 106 H (7-21) mg/dL Creatinine 4.6 H (0.5-1.4) mg/dL Est GFR ( Amer) 15 Est GFR (Non-Af Amer) 12 POC Glucose (mg/dL) 160 H 190 H (65-110) mg/dL Random Glucose 147 H (70-110) mg/dL Hemoglobin A1c (4.2-6.5) % Lactic Acid 0.8 (0.7-2.1) mmol/L Calcium 7.0 L (8.4-10.5) mg/dL Phosphorus 4.9 H (2.5-4.5) mg/dL Magnesium 2.2 (1.7-2.2) mg/dL Ferritin ng/mL Total Bilirubin 0.6 (0.2-1.3) mg/dL AST 101 H (15-59) U/L ALT 72 H (7-56) U/L Alkaline Phosphatase 56 (38-133) U/L Lactate Dehydrogenase (333-699) U/L Total Protein 4.2 L (5.8-8.3) g/dL Albumin 1.8 L (3.0-4.8) g/dL Globulin 2.4 gm/dL Albumin/Globulin Ratio 0.8 L (1.1-1.8) Procalcitonin (0.19-0.49) NG/ML Arterial Blood Potassium (3.6-5.2) mmol/L Hepatitis A IgM Ab (NEGATIVE) Hep Bs Antigen (NEGATIVE) Hep B Core IgM Ab (NEGATIVE) Hepatitis C Antibody (NEGATIVE) HIV 1&2 Ag/Ab, 4th Gen (Nonreactive) Ur L.pneumophila Ag (NEGATIVE) Malaria Source (NEGATIVE) 08/27/16 08/27/16 08/27/16 Range/Units 20:00 17:50 16:12 WBC 44.0 H* (4.5-11.0) 10^3/ul RBC 3.20 L (3.5-6.1) 10^6/uL Hgb 9.8 L (14.0-18.0) gm/dL Hct 27.6 L (42.0-52.0) % MCV 86.3 (80.0-105.0) fL MCH 30.6 (25.0-35.0) pg MCHC 35.5 (31.0-37.0) g/dl RDW 15.4 H (11.5-14.5) % Plt Count 196 (120.0-450.0) 10^3/uL MPV 14.2 H (7.0-11.0) fl Gran % (50.0-68.0) % Lymph % (Auto) (22.0-35.0) % Hood % (Auto) (1.0-6.0) % Eos % (Auto) (1.5-5.0) % Baso % (Auto) (0.0-3.0) % Gran # (1.4-6.5) Lymph # (1.2-3.4) Hood # (0.1-0.6) Eos # (0.0-0.7) Baso # (0.0-2.0) K/mm3 pCO2 (35-45) mm/Hg pO2 (80-100) mm/Hg HCO3 (21-28) mmol/L ABG pH (7.35-7.45) ABG Total CO2 (22-28) mmol.L ABG O2 Saturation (95-98) % ABG O2 Content (15-23) ML/dl ABG Base Excess (-2.0-3.0) mmol/L ABG Hemoglobin (11.7-17.4) g/dL ABG Carboxyhemoglobin (0.5-1.5) % POC ABG HHb (Measured) (0-5) % ABG Methemoglobin (0.0-3.0) % ABG O2 Capacity (16-24) mL/dl ABG Potassium (3.6-5.2) mmol/L Hgb O2 Saturation (95.0-98.0) % Glucose (75-110) mg/dl Lactate (0.7-2.1) mmol/L Mechanical Rate FiO2 % Tidal Volume PEEP Sodium 137 (132-148) mmol/L Potassium 4.8 (3.6-5.0) mmol/L Chloride 111 H (98-107) mmol/L Carbon Dioxide 16 L (21-33) mmol/L Anion Gap 15 (10-20) BUN 108 H (7-21) mg/dL Creatinine 4.5 H (0.5-1.4) mg/dL Est GFR ( Amer) 15 Est GFR (Non-Af Amer) 13 POC Glucose (mg/dL) 219 H (65-110) mg/dL Random Glucose 174 H (70-110) mg/dL Hemoglobin A1c (4.2-6.5) % Lactic Acid 1.5 (0.7-2.1) mmol/L Calcium 7.0 L (8.4-10.5) mg/dL Phosphorus (2.5-4.5) mg/dL Magnesium (1.7-2.2) mg/dL Ferritin ng/mL Total Bilirubin 0.5 (0.2-1.3) mg/dL AST 157 H (15-59) U/L ALT 78 H (7-56) U/L Alkaline Phosphatase 59 (38-133) U/L Lactate Dehydrogenase (333-699) U/L Total Protein 4.3 L (5.8-8.3) g/dL Albumin 1.9 L (3.0-4.8) g/dL Globulin 2.4 gm/dL Albumin/Globulin Ratio 0.8 L (1.1-1.8) Procalcitonin (0.19-0.49) NG/ML Arterial Blood Potassium (3.6-5.2) mmol/L Hepatitis A IgM Ab (NEGATIVE) Hep Bs Antigen (NEGATIVE) Hep B Core IgM Ab (NEGATIVE) Hepatitis C Antibody (NEGATIVE) HIV 1&2 Ag/Ab, 4th Gen (Nonreactive) Ur L.pneumophila Ag (NEGATIVE) Malaria Source (NEGATIVE) 08/27/16 08/27/16 08/27/16 Range/Units 15:30 09:45 09:28 WBC (4.5-11.0) 10^3/ul RBC (3.5-6.1) 10^6/uL Hgb (14.0-18.0) gm/dL Hct (42.0-52.0) % MCV (80.0-105.0) fL MCH (25.0-35.0) pg MCHC (31.0-37.0) g/dl RDW (11.5-14.5) % Plt Count (120.0-450.0) 10^3/uL MPV (7.0-11.0) fl Gran % (50.0-68.0) % Lymph % (Auto) (22.0-35.0) % Hood % (Auto) (1.0-6.0) % Eos % (Auto) (1.5-5.0) % Baso % (Auto) (0.0-3.0) % Gran # (1.4-6.5) Lymph # (1.2-3.4) Hood # (0.1-0.6) Eos # (0.0-0.7) Baso # (0.0-2.0) K/mm3 pCO2 27 L (35-45) mm/Hg pO2 248.0 H (80-100) mm/Hg HCO3 13.9 L (21-28) mmol/L ABG pH 7.32 L (7.35-7.45) ABG Total CO2 14.7 L (22-28) mmol.L ABG O2 Saturation 99.5 H (95-98) % ABG O2 Content (15-23) ML/dl ABG Base Excess -10.6 L (-2.0-3.0) mmol/L ABG Hemoglobin (11.7-17.4) g/dL ABG Carboxyhemoglobin (0.5-1.5) % POC ABG HHb (Measured) (0-5) % ABG Methemoglobin (0.0-3.0) % ABG O2 Capacity (16-24) mL/dl ABG Potassium 4.3 (3.6-5.2) mmol/L Hgb O2 Saturation (95.0-98.0) % Glucose 200 H (75-110) mg/dl Lactate 1.3 (0.7-2.1) mmol/L Mechanical Rate 14 FiO2 100.0 % Tidal Volume 500 PEEP 5 Sodium 138.0 (132-148) mmol/L Potassium (3.6-5.0) mmol/L Chloride 118.0 H (98-107) mmol/L Carbon Dioxide (21-33) mmol/L Anion Gap (10-20) BUN (7-21) mg/dL Creatinine (0.5-1.4) mg/dL Est GFR ( Amer) Est GFR (Non-Af Amer) POC Glucose (mg/dL) (65-110) mg/dL Random Glucose (70-110) mg/dL Hemoglobin A1c (4.2-6.5) % Lactic Acid (0.7-2.1) mmol/L Calcium (8.4-10.5) mg/dL Phosphorus (2.5-4.5) mg/dL Magnesium (1.7-2.2) mg/dL Ferritin ng/mL Total Bilirubin (0.2-1.3) mg/dL AST (15-59) U/L ALT (7-56) U/L Alkaline Phosphatase (38-133) U/L Lactate Dehydrogenase (333-699) U/L Total Protein (5.8-8.3) g/dL Albumin (3.0-4.8) g/dL Globulin gm/dL Albumin/Globulin Ratio (1.1-1.8) Procalcitonin (0.19-0.49) NG/ML Arterial Blood Potassium 4.3 (3.6-5.2) mmol/L Hepatitis A IgM Ab (NEGATIVE) Hep Bs Antigen (NEGATIVE) Hep B Core IgM Ab (NEGATIVE) Hepatitis C Antibody (NEGATIVE) HIV 1&2 Ag/Ab, 4th Gen Nonreactive (Nonreactive) Ur L.pneumophila Ag Negative (NEGATIVE) Malaria Source See note (NEGATIVE) 08/27/16 08/27/16 08/26/16 Range/Units 09:20 09:00 21:00 WBC (4.5-11.0) 10^3/ul RBC (3.5-6.1) 10^6/uL Hgb (14.0-18.0) gm/dL Hct (42.0-52.0) % MCV (80.0-105.0) fL MCH (25.0-35.0) pg MCHC (31.0-37.0) g/dl RDW (11.5-14.5) % Plt Count (120.0-450.0) 10^3/uL MPV (7.0-11.0) fl Gran % (50.0-68.0) % Lymph % (Auto) (22.0-35.0) % Hood % (Auto) (1.0-6.0) % Eos % (Auto) (1.5-5.0) % Baso % (Auto) (0.0-3.0) % Gran # (1.4-6.5) Lymph # (1.2-3.4) Hood # (0.1-0.6) Eos # (0.0-0.7) Baso # (0.0-2.0) K/mm3 pCO2 (35-45) mm/Hg pO2 (80-100) mm/Hg HCO3 (21-28) mmol/L ABG pH (7.35-7.45) ABG Total CO2 (22-28) mmol.L ABG O2 Saturation (95-98) % ABG O2 Content (15-23) ML/dl ABG Base Excess (-2.0-3.0) mmol/L ABG Hemoglobin (11.7-17.4) g/dL ABG Carboxyhemoglobin (0.5-1.5) % POC ABG HHb (Measured) (0-5) % ABG Methemoglobin (0.0-3.0) % ABG O2 Capacity (16-24) mL/dl ABG Potassium (3.6-5.2) mmol/L Hgb O2 Saturation (95.0-98.0) % Glucose (75-110) mg/dl Lactate (0.7-2.1) mmol/L Mechanical Rate FiO2 % Tidal Volume PEEP Sodium (132-148) mmol/L Potassium (3.6-5.0) mmol/L Chloride (98-107) mmol/L Carbon Dioxide (21-33) mmol/L Anion Gap (10-20) BUN (7-21) mg/dL Creatinine (0.5-1.4) mg/dL Est GFR ( Amer) Est GFR (Non-Af Amer) POC Glucose (mg/dL) (65-110) mg/dL Random Glucose (70-110) mg/dL Hemoglobin A1c 6.7 H (4.2-6.5) % Lactic Acid (0.7-2.1) mmol/L Calcium (8.4-10.5) mg/dL Phosphorus (2.5-4.5) mg/dL Magnesium (1.7-2.2) mg/dL Ferritin 442.0 ng/mL Total Bilirubin (0.2-1.3) mg/dL AST (15-59) U/L ALT (7-56) U/L Alkaline Phosphatase (38-133) U/L Lactate Dehydrogenase 2100 H (333-699) U/L Total Protein (5.8-8.3) g/dL Albumin (3.0-4.8) g/dL Globulin gm/dL Albumin/Globulin Ratio (1.1-1.8) Procalcitonin 3.10 H (0.19-0.49) NG/ML Arterial Blood Potassium (3.6-5.2) mmol/L Hepatitis A IgM Ab Negative (NEGATIVE) Hep Bs Antigen Negative (NEGATIVE) Hep B Core IgM Ab Negative (NEGATIVE) Hepatitis C Antibody Negative (NEGATIVE) HIV 1&2 Ag/Ab, 4th Gen (Nonreactive) Ur L.pneumophila Ag (NEGATIVE) Malaria Source (NEGATIVE) Laboratory Results - last 24 hr 08/26/16 08/27/16 08/27/16 21:00 09:00 09:20 WBC RBC Hgb Hct MCV MCH MCHC RDW Plt Count MPV Gran % Lymph % (Auto) Hood % (Auto) Eos % (Auto) Baso % (Auto) Gran # Lymph # Hood # Eos # Baso # pCO2 pO2 HCO3 ABG pH ABG Total CO2 ABG O2 Saturation ABG O2 Content ABG Base Excess ABG Hemoglobin ABG Carboxyhemoglobin POC ABG HHb (Measured) ABG Methemoglobin ABG O2 Capacity ABG Potassium Hgb O2 Saturation Sodium Chloride Glucose Lactate Mechanical Rate FiO2 Tidal Volume PEEP Potassium Carbon Dioxide Anion Gap BUN Creatinine Est GFR ( Amer) Est GFR (Non-Af Amer) POC Glucose (mg/dL) Random Glucose Hemoglobin A1c 6.7 H Lactic Acid Calcium Phosphorus Magnesium Ferritin 442.0 Total Bilirubin AST ALT Alkaline Phosphatase Lactate Dehydrogenase 2100 H Total Protein Albumin Globulin Albumin/Globulin Ratio Procalcitonin 3.10 H Arterial Blood Potassium Hepatitis A IgM Ab Negative Hep Bs Antigen Negative Hep B Core IgM Ab Negative Hepatitis C Antibody Negative HIV 1&2 Ag/Ab, 4th Gen Ur L.pneumophila Ag Malaria Source 08/27/16 08/27/16 08/27/16 09:28 09:45 15:30 WBC RBC Hgb Hct MCV MCH MCHC RDW Plt Count MPV Gran % Lymph % (Auto) Hood % (Auto) Eos % (Auto) Baso % (Auto) Gran # Lymph # Hood # Eos # Baso # pCO2 27 L pO2 248.0 H HCO3 13.9 L ABG pH 7.32 L ABG Total CO2 14.7 L ABG O2 Saturation 99.5 H ABG O2 Content ABG Base Excess -10.6 L ABG Hemoglobin ABG Carboxyhemoglobin POC ABG HHb (Measured) ABG Methemoglobin ABG O2 Capacity ABG Potassium 4.3 Hgb O2 Saturation Sodium 138.0 Chloride 118.0 H Glucose 200 H Lactate 1.3 Mechanical Rate 14 FiO2 100.0 Tidal Volume 500 PEEP 5 Potassium Carbon Dioxide Anion Gap BUN Creatinine Est GFR ( Amer) Est GFR (Non-Af Amer) POC Glucose (mg/dL) Random Glucose Hemoglobin A1c Lactic Acid Calcium Phosphorus Magnesium Ferritin Total Bilirubin AST ALT Alkaline Phosphatase Lactate Dehydrogenase Total Protein Albumin Globulin Albumin/Globulin Ratio Procalcitonin Arterial Blood Potassium 4.3 Hepatitis A IgM Ab Hep Bs Antigen Hep B Core IgM Ab Hepatitis C Antibody HIV 1&2 Ag/Ab, 4th Gen Nonreactive Ur L.pneumophila Ag Negative Malaria Source See note 08/27/16 08/27/16 08/27/16 16:12 17:50 20:00 WBC 44.0 H* RBC 3.20 L Hgb 9.8 L Hct 27.6 L MCV 86.3 MCH 30.6 MCHC 35.5 RDW 15.4 H Plt Count 196 MPV 14.2 H Gran % Lymph % (Auto) Hood % (Auto) Eos % (Auto) Baso % (Auto) Gran # Lymph # Hood # Eos # Baso # pCO2 pO2 HCO3 ABG pH ABG Total CO2 ABG O2 Saturation ABG O2 Content ABG Base Excess ABG Hemoglobin ABG Carboxyhemoglobin POC ABG HHb (Measured) ABG Methemoglobin ABG O2 Capacity ABG Potassium Hgb O2 Saturation Sodium 137 Chloride 111 H Glucose Lactate Mechanical Rate FiO2 Tidal Volume PEEP Potassium 4.8 Carbon Dioxide 16 L Anion Gap 15 BUN 108 H Creatinine 4.5 H Est GFR ( Amer) 15 Est GFR (Non-Af Amer) 13 POC Glucose (mg/dL) 219 H Random Glucose 174 H Hemoglobin A1c Lactic Acid 1.5 Calcium 7.0 L Phosphorus Magnesium Ferritin Total Bilirubin 0.5 AST 157 H ALT 78 H Alkaline Phosphatase 59 Lactate Dehydrogenase Total Protein 4.3 L Albumin 1.9 L Globulin 2.4 Albumin/Globulin Ratio 0.8 L Procalcitonin Arterial Blood Potassium Hepatitis A IgM Ab Hep Bs Antigen Hep B Core IgM Ab Hepatitis C Antibody HIV 1&2 Ag/Ab, 4th Gen Ur L.pneumophila Ag Malaria Source 08/27/16 08/28/16 08/28/16 22:20 05:30 07:13 WBC 35.4 H* RBC 3.00 L Hgb 9.4 L Hct 26.4 L MCV 88.0 MCH 31.3 MCHC 35.6 RDW 16.0 H Plt Count 210 MPV 13.7 H Gran % 91.8 H Lymph % (Auto) 2.8 L Hood % (Auto) 5.3 Eos % (Auto) 0.0 L Baso % (Auto) 0.1 Gran # 32.51 H Lymph # 1.0 L Hood # 1.9 H Eos # 0.0 Baso # 0.02 pCO2 25 L pO2 91.0 HCO3 13.2 L ABG pH 7.33 L ABG Total CO2 14.0 L ABG O2 Saturation 97.9 ABG O2 Content 15.2 ABG Base Excess -11.2 L ABG Hemoglobin 11.2 L ABG Carboxyhemoglobin 1.1 POC ABG HHb (Measured) 2.1 ABG Methemoglobin 0.9 ABG O2 Capacity 15.5 L ABG Potassium Hgb O2 Saturation 95.9 Sodium 138 Chloride 112 H Glucose Lactate Mechanical Rate FiO2 60.0 Tidal Volume PEEP Potassium 4.2 Carbon Dioxide 18 L Anion Gap 12 BUN 106 H Creatinine 4.6 H Est GFR ( Amer) 15 Est GFR (Non-Af Amer) 12 POC Glucose (mg/dL) 190 H 160 H Random Glucose 147 H Hemoglobin A1c Lactic Acid 0.8 Calcium 7.0 L Phosphorus 4.9 H Magnesium 2.2 Ferritin Total Bilirubin 0.6 AST 101 H ALT 72 H Alkaline Phosphatase 56 Lactate Dehydrogenase Total Protein 4.2 L Albumin 1.8 L Globulin 2.4 Albumin/Globulin Ratio 0.8 L Procalcitonin Arterial Blood Potassium Hepatitis A IgM Ab Hep Bs Antigen Hep B Core IgM Ab Hepatitis C Antibody HIV 1&2 Ag/Ab, 4th Gen Ur L.pneumophila Ag Malaria Source Attending/Attestation - Attestation I have personally seen and examined this patient.: Yes I have fully participated in the care of the patient.: Yes I have reviewed all pertinent clinical information: Yes Notes (Text): 08/28/16 14:50 81 y/o M w/ MODS NSTEMI not anticoagulated due to G.I bleed G.I bleed, plan for EGD today to r/o PUD etc. On Protonix BID Uremia w/ ATn w/ CKD. Urine output > 40cc/hr After EGD if bleeding is identified , plans for possible cardiac cath can proceed and if DYe load does cause further need for HD, plans fod HD can be arranged. ON 60% fio2 keep pa02> 60 , PH>7.3 R/O TTP, HX of ITP. No schistocytes noted on Smear per HEME> . 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 On propofol for agitation, can change to precedex cc time 65 min
[2016-08-28 08:02] LABS: MAGNESIUM 2.2 mg/dL (1.7-2.2); PHOSPHOROUS 4.9 mg/dL (2.5-4.5)
[2016-08-28] MEDS: Budesonide 0.5 mg/2 ml Inhal Susp UD IH SCH ×2 (08:16→20:25)
[2016-08-28] MEDS: Arformoterol 15 mcg/2 ml Inh Sol IH SCH ×2 (08:16→20:25)
[2016-08-28] MEDS: Vancomycin 25 MG/ML PO SCH ×4 (09:01→21:48)
[2016-08-28] MEDS: Cefepime 1gm in NS 100ml 100 ML IVPB SCH (09:03)
--- NOTE | 2016-08-28 09:36 | CARD ---
APPROVED REPORT EKG Measurement Heart [id number] <Conclusion> Normal sinus rhythm NSSTW changes Small q 3,F with mild ST elevation in 3, possible IMI, recent ST depressions V 4 - 6 no longer present Prolonged QT
--- NOTE | 2016-08-28 09:47 | RAD ---
HISTORY: chf COMPARISON: 08/27/2016 FINDINGS: LUNGS: No significant change in bilateral infiltrates. PLEURA: No significant pleural effusion identified, no pneumothorax apparent. CARDIOVASCULAR: Normal. OSSEOUS STRUCTURES: No significant abnormalities. VISUALIZED UPPER ABDOMEN: Normal. OTHER FINDINGS: Endotracheal tube and nasogastric tube in satisfactory position IMPRESSION: Bilateral infiltrates
--- NOTE | 2016-08-28 12:56 | CON ---
DATE: 08/28/2016 REASON FOR CONSULTATION: Acute kidney injury, severe anemia, hyperkalemia. HISTORY OF PRESENTING ILLNESS: An 81-year-old male known to me from prior evaluation who was brought to the Emergency Room by son because he was found unresponsive on the floor with stool incontinence, melanotic stool. He was found to be lethargic in the Emergency Room. Disoriented. His hemoglobin was found to be 5.7. He was also found to have elevated BUN and creatinine - BUN of 87 and creatinin e of 4.4. His potassium at the time of admission was 5.8. The patient was admitted to the ICU. The patient received 3 units of PRBCs. Subsequently, the patient developed respiratory distress. He de saturated. He was intubated. Currently, he is seen in the ICU, on mechanical ventilation. Appears comfortable. He does not appear to be in any kind of distress at this point. The patient was also found to have a [id number] myocardial infarction. His troponin was 123 at the time of admission; repeat was 153. PAST MEDICAL AND SURGICAL HISTORY: NIDDM, hypertension, CVA, left hemiparesis; chronic renal disease , stage III, baseline creatinine around 2.5 to 3.0; BPH, peripheral vascular disease, carotid endarte rectomy on the left side, acute kidney injury, [id number] myocardial infarction, acute rhabdomy olysis, CAD. FAMILY HISTORY: Noncontributory. SOCIAL HISTORY: No smoking, no alcohol use, no IV drug abuse. ALLERGIES: No known drug allergies. CURRENT MEDICATIONS: Include Brovana, Diprivan, doxycycline 100 q. 12, Flagyl 500 q. 8, Maxipime 1 g pablo, Protonix, Pulmicort, half normal saline with 75 mEq of sodium bicarbonate at 60 per hour, Tyleno l, vancomycin which was discontinued. REVIEW OF SYSTEMS: Unavailable as patient is sedated and on mechanical ventilation. PHYSICAL EXAMINATION: GENERAL: Elderly male lying in bed in the ICU, on mechanical ventilation, on Diprivan IV. VITAL SIGNS: Blood pressure 115/66, heart rate 59, respiratory rate 17, temperature 96.6. HEENT: Normocephalic, atraumatic. Pupils equal, reactive to light. NECK: Supple, no JVD. LUNGS: Bilateral equal air entry, bilateral equal expansion. No rales appreciated. CARDIAC: S1, S2, regular rate and rhythm. No murmur, no rub. ABDOMEN: Soft, nondistended. Positive tenderness in the epigastrium? Bowel sounds present. EXTREMITIES: No lower extremity edema. INTAKE AND OUTPUT: 3413/1050. LABORATORY DATA: WBC 35, hemoglobin 9.4, hematocrit 26, platelets 210. Sodium 138, potassium 4.2, c hloride 112, CO2 18, BUN 106, creatinine 4.6, glucose 147, calcium 7.0, phosphorus 4.9, magnesium 2.2 . AST 101, ALT 72, albumin 1.8. Hepatitis serology negative. Blood cultures: No growth so far. CT abdomen and pelvis ____: 1. Moderately large bilateral pleural effusions with atelectasis, asymmetrical bilateral airspace di sease with nodular recombinant, dilated fluid filled esophagus, cardiomegaly, atherosclerotic disease , thyroid nodules. 2. Gallstones with prominent common bile duct. Abdominal ultrasound: Cholelithiasis with thickened edema and small amount of pericholecystic fluid. ASSESSMENT AND PLAN: An 81-year-old male, critically ill, with history of rti-bfnoqyd-jncxktzqh diab etes mellitus, hypertension, coronary artery disease, cerebrovascular accident, hemiparesis, admitted with life threatening gastrointestinal bleed, severe anemia, hyperkalemia, acute kidney injury, larg sulma prerenal azotemia secondary to gastrointestinal bleed, [id number] myocardial infarction, po ssible aspiration pneumonia, respiratory failure. Currently, patient is critically ill with multiorg an dysfunction. 1. Acute kidney injury superimposed on chronic renal disease, stage III. 2. Hyperkalemia secondary to acute kidney injury and gastrointestinal bleed. 3. Significant gastrointestinal bleed, status post 3 units of packed red blood cells. 4. Possible aspiration pneumonia, leukocytosis. 5. Respiratory failure. 6. Bilateral pleural effusions, nodular disease? 7. Cdq-RJ-gecrssiey myocardial infarction. PLAN: 1. Continue low dose fluids with sodium bicarbonate. 2. Continue empiric antibiotics for aspiration pneumonia and Clostridium difficile colitis. 3. Okay to continue p.o. vancomycin for possible Clostridium difficile colitis. 4. Follow up cultures. 5. Monitor H and H closely. 6. Acute kidney injury is largely secondary to gastrointestinal bleed. No indication for urgent joe lysis unless cardiac catheterization is planned. In that case, the patient can be dialyzed immediate ly post cardiac catheterization. 7. The patient is critically ill, prognosis is guarded. Case is discussed at length with ICU michealin g staff. 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 8. Will follow this patient closely. More than 35 minutes spent in the care of this critically ill patient. Aundrea Alcazar MD cc: [id number] TT: 08/28/2016 12:30:35 Confirmation # [id number] Dictation # [id number] mn
--- NOTE | 2016-08-28 14:47 | CP.PCM.PN ---
Subjective - Date & Time of Evaluation Date of Evaluation: 08/28/16 Time of Evaluation: 08:30 - Subjective Subjective: Patient continues to be intubated and sedated, currently off vasopressors. Afebrile. Objective - Vital Signs/Intake and Output Vital Signs (last 24 hours): Temp Pulse Resp BP Pulse Ox 96.6 F L 66 17 123/65 100 08/28/16 08:00 08/28/16 14:15 08/28/16 04:00 08/28/16 14:15 08/28/16 14:15 Intake and Output: 08/28/16 08/28/16 06:59 18:59 Intake Total 2238 Output Total 450 Balance 1788 - Medications Medications: Current Medications Acetaminophen (Tylenol 650 Mg Supp) 650 mg RC Q4H PRN PRN Reason: Fever >100.4 F Arformoterol Tartrate (Brovana) 15 mcg IH [id number] [facility] Last Admin: 08/28/16 08:16 Dose: 15 mcg Budesonide (Pulmicort Respules) 0.5 mg IH [id number] [facility] Last Admin: 08/28/16 08:16 Dose: 0.5 mg Metronidazole (Flagyl) 100 mls @ 100 mls/hr IVPB Q8 YUVAL PRN Reason: Protocol Last Admin: 08/28/16 13:48 Dose: 100 mls/hr Doxycycline Hyclate 100 mg/ (Sodium Chloride) 100 mls @ 100 mls/hr IVPB Q12 YUVAL PRN Reason: Protocol Stop: 09/10/16 10:01 Last Admin: 08/28/16 09:01 Dose: 100 mls/hr Propofol (Diprivan) 100 mls @ 2.041 mls/hr IV .Q24H PRN; Protocol; 5 MCG/KG/MIN PRN Reason: TITRATE PER MD ORDER Last Admin: 08/28/16 12:24 Dose: 8.165 mls/hr Sodium Bicarbonate 75 meq/ (Sodium Chloride) 1,075 mls @ 60 mls/hr IV .[id number] [facility] Last Admin: 08/27/16 20:36 Dose: 60 mls/hr Insulin Human Lispro (Humalog Low) 0 units SC ACHS YUVAL PRN Reason: Protocol Last Admin: 08/28/16 12:02 Dose: Not Given Pantoprazole Sodium (Protonix Inj) 40 mg IVP Q12 [facility] Last Admin: 08/28/16 09:03 Dose: 40 mg Vancomycin HCl (Vancocin 25 Mg/Ml (Oral Use)) 250 mg PO QID YUVAL PRN Reason: Protocol Last Admin: 08/28/16 13:47 Dose: 250 mg - Labs Labs: 08/28/16 05:30 08/28/16 05:30 PT 12.8 Seconds (9.9-11.8) H 08/26/16 21:00 INR 1.19 (0.93-1.08) H 08/26/16 21:00 APTT 29.7 Seconds (23.7-30.8) 08/27/16 09:45 - Constitutional Appears: Other (Intubated and sedated) - Head Exam Head Exam: NORMAL INSPECTION - ENT Exam Additional comments: ET tube in place - Neck Exam Neck Exam: absent: Lymphadenopathy, Meningismus - Respiratory Exam Respiratory Exam: Decreased Breath Sounds - Cardiovascular Exam Cardiovascular Exam: +S1, +S2 - GI/Abdominal Exam GI & Abdominal Exam: Soft. absent: Tenderness Assessment and Plan - Assessment and Plan (Free Text) Plan: Assessment Severe sepsis with hypoxic and ventilator-dependent respiratory failure probably secondary to communit-acquired pneumonia R/O aspiration pneumonitis in a patient with acute on chronic renal failure and lactic acidosis as well as possible non-ST elevation myocardial infarction Anemia R/O hemolysis Chronic renal failure history of cerebrovascular accident S/O left carotid endarterectomy history of immune-thrombocytopenic purpura BPH CAD Plan Continue Cefepime, Doxycycline and Flagyl pending final cx results (day 2); Patient given a dose of IV Vancomycin and will get Vanco random level tomorrow Follow up Babesia tests, Mycoplasma IgM, other hemolytic anemia work up tests; urine Legionella Ag is negative Will continue to follow clinically
[2016-08-28] MEDS ORDERED: Rocuronium 10 mg/ml (5 ml) ONE (15:06)
[2016-08-28] MEDS ORDERED: Propofol 10 mg/ml Inj (20 ML) ONE (15:06)
[2016-08-28] MEDS ORDERED: Etomidate 20 mg/10ml Inj IV ONE (15:06)
--- NOTE | 2016-08-28 17:06 | CARD ---
APPROVED REPORT EXAM: Two-dimensional and M-mode echocardiogram with Doppler and color Doppler. INDICATION NSTEMI 2D DIMENSIONS Left Atrium (2D)4.8 (1.6-4.0cm)IVSd1.1 (0.7-1.1cm) LVDd5.0 (3.9-5.9cm)PWd1.3 (0.7-1.1cm) LVEF (%)35.0 (>50%) M-Mode DIMENSIONS Aortic Root3.50 (2.2-3.7cm)Aortic Cusp Exc.1.50 (1.5-2.0cm) Aortic Valve AoV Peak Qyimvfow762.0cm/sAoV VTI33.7cmAO Peak GR.12mmHg LVOT Peak Tnlccjle26.7cm/sLVOT VTI21.90cmAO Mean GR.4mmHg Mitral Valve MV E Uzsaqanp693.0cm/sMV A Qsxttzof287.0cm/sE/A ratio1.0 TDI Lateral E' Peak V7.60cm/sMedial E' Peak V4.39cm/sE/Lateral E'16.1 E/Medial E'27.8 Pulmonary Valve PV Peak Wdusoubw16.3cm/sPV Peak Grad.3mmHg Tricuspid Valve TR Peak [id number]/sRAP [id number] Peak Gr.31mmHg [id number] LEFT VENTRICLE The left ventricle is normal size. There is borderline to mild concentric left ventricular hypertrophy. The systolic function is severely impaired. Significant regional wall motion abnormalities noted. Transmitral Doppler flow pattern is Grade I-abnormal relaxation pattern. No left ventricle thrombus noted on this study. RIGHT VENTRICLE The right ventricle is normal size. There is normal right ventricular wall thickness. The right ventricular systolic function is normal. ATRIA The left atrium is moderately dilated. The right atrium is mildly dilated. AORTIC VALVE The aortic valve is moderately thickened. No aortic regurgitation is present. MITRAL VALVE The mitral valve is moderately thickened. Mitral regurgitation is moderate to severe. The mitral regurgitant jet is eccentrically directed. TRICUSPID VALVE There is mild tricuspid regurgitation. There is mild pulmonary hypertension. GREAT VESSELS The aortic root is normal in size. The IVC collapses <50% with inspiration. PERICARDIAL EFFUSION There is large left pleural effusion. There is a trace loculated anterior pericardial effusion. <Conclusion> The left ventricle is normal size. There is borderline to mild concentric left ventricular hypertrophy. The systolic function is severely impaired. Significant regional wall motion abnormalities noted. Transmitral Doppler flow pattern is Grade I-abnormal relaxation pattern. Mitral regurgitation is moderate to severe. There is mild tricuspid regurgitation. There is mild pulmonary hypertension. There is large left pleural effusion.
[2016-08-28] MEDS ORDERED: Sodium Chloride 0.9% 1,000 ML IV STA ×2 (17:11→20:45)
--- NOTE | 2016-08-28 17:31 | PCM.PROC ---
Procedures Attestation:: I certify that I have explained the specified Operation(s) or Procedure(s), risks, benefits and reasonable alternatives to the Patient and/or other person responsible. The opportunity was given to ask questions and all questions answered - Central Line Placement Right Internal Jugular Aseptic technique was employed throughout the procedure: Hand Hygiene done prior to procedure, Full sterile barriers (mask, hair cover, sterile gown, sterile gloves), Full body sterile drape, Chloraprep Antiseptic: 30 second prep for IJ or SC sites Central Line Prep: Chlorhexidine-Alcohol Combination Ultrasound Used for Placement: Yes Central Line Lumen Inserted: triple Post Procedure: Sutured in Place, Good Blood Return, All Ports Aspirated, Flushed, Capped, Sterile Dressing Applied Secured by: Suture Post procedure dressing: Clear vapor permeable Post Procedure X-Ray: Yes Patient Tolerated Procedure: Well Immediate Complications: None - Feeding Tube Replacement Type of Tube: other (OG tube for oral vanco) Insertion Site Prior to Procedure: clean Tube Secured by: tape/dressing Patient Tolerated Procedure: well Additional comments: placement confirmed by cxr
--- NOTE | 2016-08-28 18:21 | PN ---
DATE: 08/28/2016 SUBJECTIVE: This patient was seen and evaluated today earlier. I discussed with the promotor group ticket sales. T his 81-year-old patient admitted with gastrointestinal bleeding, non-ST segment myocardial infarction with a significantly elevated troponin level, presently on vent. Hemoglobin appears to be stable an d patient is off the antiplatelet therapy. 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 There is a concern about off the antiplatelet therapy. The patient did have signific ant gastrointestinal bleeding. PHYSICAL EXAMINATION: VITAL SIGNS: Temperature is 96.6, pulse 70, blood pressure 129/59. HEENT: Atraumatic, anicteric. Old facial droop. NECK: Supple. HEART: S1, S2 heard. LUNGS: Bilateral air entry present. ABDOMEN: Soft. EXTREMITIES: No cyanosis, no clubbing. LABORATORY DATA: Hemoglobin 9.4, hematocrit 26.4, WBC 35.4, platelets 210. BUN 106, creatinine 4.6. IMPRESSION AND PLAN: Status post 4 units of transfusion. This is an 81-year-old patient with upper gastrointestinal bleeding status post 4 units of transfusion off the aspirin and Plavix. Plan for an upper GI endoscopy to make a decision regarding restarting the antiplatelet therapy and also conside ring any endoscopy therapy if at all feasible. Discussed with the patient's son and informed consent was obtained for the procedure. The patient underwent upper GI endoscopy which showed 2 ulcers One ulcer covered with pigmented spot s and another in the upper body fundus area, measuring about 1-1.5 cm. Another smaller ulcer, clean based noticed in the antrum. There was no blood was noticed in the stomach. The patient tolerated t he procedure well. POST-PROCEDURE: Had a detailed discussion with the promotor group ticket sales. The real concern is the patient did have significant myocardial infarction. They are worried about extension of the myocardial infarcti on and life threatening complications, the worsening of the cardiac status. The patient is already o n Protonix, it is reasonable in this particular situation to consider restarting the aspirin and Plav ix. watching closely hemoglobin and hematocrit. We will continue to closely follow up his care and s uggest further management based on the clinical course. Eleonora Dillard MD cc: [id number] TT: 08/28/2016 18:20:07 Confirmation # [id number] Dictation # [id number] jn
[2016-08-28 18:32] LABS: ADD MANUAL DIFF? NO
[2016-08-28 18:44] LABS: RETIC% 1.88 % (0.5-1.5)
[2016-08-28 18:46] LABS: ALB/GLOB RATIO 0.8 (1.1-1.8); BILIRUBIN,DIRECT 0.6 mg/dL (0.0-0.4); BILIRUBIN,TOTAL 0.6 mg/dL (0.2-1.3); MAGNESIUM 2.1 mg/dL (1.7-2.2); TOTAL PROTEIN 4.1 g/dL (5.8-8.3)
[2016-08-28 18:51] LABS: BASO # 0.01 [, K/mm3] (0.0-2.0); EOS % 0.1 % (1.5-5.0); GRAN # 22.92 (1.4-6.5); GRAN % 90.5 % (50.0-68.0); HEMATOCRIT 26.9 % (42.0-52.0); LYMPH # 1.1 (1.2-3.4); LYMPH % 4.3 % (22.0-35.0); MEAN CELL VOLUME 87.9 fL (80.0-105.0); MEAN CORPUSCULAR HEMOGLOBIN 30.4 pg (25.0-35.0); MEAN CORPUSCULAR HGB CONC 34.6 g/dl (31.0-37.0); MEAN PLATELET VOLUME 13.6 fl (7.0-11.0); MONO # 1.3 (0.1-0.6); MONO % 5.1 % (1.0-6.0); PLATELET COUNT 187 [, 10^3/uL] (120.0-450.0); RED CELL DISTRIBUTION WIDTH 16.1 % (11.5-14.5)
[2016-08-28 18:52] LABS: WHITE BLOOD COUNT 25.3 [, 10^3/ul] (4.5-11.0)
[2016-08-28 19:12] LABS: CALCIUM 6.8 mg/dL (8.4-10.5)
[2016-08-28 20:04] LABS: FIBRINOGEN 402.2 mg/dL (187-400); INR 1.22 (0.93-1.08)
--- NOTE | 2016-08-28 20:21 | PN ---
DATE: 08/28/2016 REFERRING PHYSICIAN: Dr. Myers. SUBJECTIVE: He is intubated and sedated, nursing staff at bedside. Overnight events noted, has a mi ld to moderate amount of ET tube secretion. No hemoptysis, no hematemesis. No madhavi GI bleed report ed since yesterday, no leg swelling. OBJECTIVE: GENERAL: On ventilator and sedated. VITAL SIGNS: Temperature is 98, heart rate is 88, respiratory rate is 26, blood pressure 115/59 and pulse ox 93% on ventilator. HEENT: Moist mucous membrane. ET tube has some secretion. NECK: Supple. No JVD. LUNGS: Has a few crackles and scattered rhonchi. HEART: S1 and S2. ABDOMEN: Soft, nontender. No organomegaly. EXTREMITIES: There is not much significant edema. NEUROLOGIC: Sedated and intubated. MEDICATIONS: He is on Brovana 15 mcg inhaled twice a day. He is on Diprivan IV, doxycycline 100 mg twice a day, Ecotrin 81 mg daily, Flagyl 500 mg q. 8 hours, insulin coverage, Plavix 75 mg daily, Pro tonix 40 mg twice a day, Pulmicort inhaled twice a day, IV fluid with bicarb 60 mL per hour, Tylenol p.r.n. basis, vancomycin 250 mg . LABORATORY DATA: Shows hemoglobin , hematocrit 26.9, WBC 25,000. Platelet count 187. Blood ga s this morning shows pH 7.33, pCO2 of 25, O2 of 91. He is on a ventilator with 60% oxygen. Sodium 1 37, potassium 4.0, chloride 112, bicarbonate 17, BUN 101, creatinine 4.6, glucose is 145, calcium is 6.8, phosphorus 5.0, magnesium 2.1, AST 61, ALT 72, alkaline phosphatase is 58, LDH is 1711. Troponi n is 46. Albumin is 1.8. MICROBIOLOGY: Blood culture has been negative. Stool for C. diff is negative. He had an endoscopy done today shows a suggestion of short segment Ag's esophagus, gastric ulcer with flat, pigmente d, full global examination of the duodenum. Chest x-ray from this morning shows bilateral infiltrate s. Echocardiogram was done this morning shows right ventricular systolic pressure is 41, left ventri ambika is normal in size, mild concentric left ventricular hypertrophy, systolic function is severely im paired. IMPRESSION AND PLAN: Gastrointestinal bleed with gastric ulcer, had hemorrhagic shock requiring mult iple units of packed RBCs transfusion, Ag esophagus, may have a component of aspiration pneumoni a, cardiomyopathy, severe LV dysfunction, history of hypertension, OR, right coronary artery disease, history of coronary stent, improving metabolic acidosis, renal failure. Agree with Dr. Myers with the present management. Pulmonary point of view, keep on ventilator, may increase diuretics, antibio tics. Cardiology and nephrology followup. Followup ABG, chest x-ray and CBC in the morning. CRITICAL CARE TIME: Spent more than 35 minutes. Thank you and will follow with you. Shawn uRff MD cc: [id number] TT: 08/28/2016 20:21:12 Confirmation # [id number] Dictation # [id number] isis
[2016-08-28 22:43] LABS: ADD MANUAL DIFF? NO
[2016-08-28 22:54] LABS: BASO # 0.01 [, K/mm3] (0.0-2.0); EOS % 0.2 % (1.5-5.0); GRAN # 19.58 (1.4-6.5); GRAN % 89.3 % (50.0-68.0); HEMATOCRIT 25.6 % (42.0-52.0); LYMPH # 1.1 (1.2-3.4); LYMPH % 5.2 % (22.0-35.0); MEAN CELL VOLUME 87.7 fL (80.0-105.0); MEAN CORPUSCULAR HEMOGLOBIN 30.5 pg (25.0-35.0); MEAN CORPUSCULAR HGB CONC 34.8 g/dl (31.0-37.0); MONO # 1.2 (0.1-0.6); MONO % 5.3 % (1.0-6.0); PLATELET COUNT 170 [, 10^3/uL] (120.0-450.0); RED CELL DISTRIBUTION WIDTH 16.2 % (11.5-14.5); WHITE BLOOD COUNT 21.9 [, 10^3/ul] (4.5-11.0)
--- NOTE | 2016-08-28 23:34 | PN ---
DATE: 08/28/2016 SUBJECTIVE: The patient seen and examined on the bedside, comfortable. Still intubated. Overnight event noted. No fever, no chills. No hemoptysis. No hematuria, no hematochezia. No more GI bleeding reported. PHYSICAL EXAMINATION: GENERAL: On ventilator. VITAL SIGNS: Temperature 98, heart rate 88, respiratory rate 20, blood pressure 120/50, pulse oximeter 93%, on ventilator. HEENT: Head normocephalic, atraumatic. Eyes closed. Nose patent. Mucous membranes moist. ET tube has some secretions. NECK: Supple. No JVD, no carotid bruit. LUNGS: Has a few crackles and scattered rhonchi. HEART: S1, S2 positive. ABDOMEN: Soft, nontender. No organomegaly. EXTREMITIES: There is no edema, no cyanosis. NEUROLOGIC: The patient is sedated and intubated, cannot complete neurological examination. MEDICATIONS: Brovana, Diprivan, doxycycline, Ecotrin, Flagyl, Plavix, Protonix , Pulmicort, bicarbonate, Tylenol, vancomycin. LABORATORY DATA: White blood cells 25.3, on admission was 38.2. Hemoglobin 9.3 , on admission it was 7.2. Hematocrit 26.9, platelets 187. Sodium 137, potassium 4.0, BUN 101, creatinine 4.8, glucose 145, potassium 6.8. Troponin 46. ASSESSMENT AND PLAN: The patient is an 81-year-old lady with leukocytosis improving, anemia improving, hyperchloremia, renal insufficiency, diabetes mellitus, hypocalcemia, hyperphosphatemia, abnormal liver function test improving. Seen by Dr. Ruff. Blood culture had been negative. Came with gastrointestinal bleeding with gastric ulcers and hemorrhagic shock, requiring multiple units of blood. Ag's esophagus, aspiration pneumonia, cardiomyopathy, severe left ventricular dysfunction, hypertension, coronary artery disease, history of coronary artery stent, metabolic acidosis. Continue present treatment. Appreciated Dr. Ruff's input. Keep on ventilator. May increase diuresis. Antibiotics. 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 Seen by Dr. Dillard. Status post 4 units of packed red blood cell transfusion. Off the aspirin and Plavix. The patient upper gastrointestinal endoscopy shows 2 ulcers, one ulcer covered with pigmented . Sana Myers MD cc: [id number] TT: 08/28/2016 23:32:59 Confirmation # [id number] Dictation # [id number] MTDD
[2016-08-29 01:26] LABS: HEMATOCRIT 26.8 % (42.0-52.0); MEAN CORPUSCULAR HEMOGLOBIN 29.9 pg (25.0-35.0); MEAN CORPUSCULAR HGB CONC 34.3 g/dl (31.0-37.0); MEAN PLATELET VOLUME 14.2 fl (7.0-11.0); PLATELET COUNT 175 [, 10^3/uL] (120.0-450.0); RED CELL DISTRIBUTION WIDTH 16.3 % (11.5-14.5); WHITE BLOOD COUNT 21.5 [, 10^3/ul] (4.5-11.0)
[2016-08-29 01:29] LABS: ALB/GLOB RATIO 0.7 (1.1-1.8); BILIRUBIN,TOTAL 0.5 mg/dL (0.2-1.3); PHOSPHOROUS 4.8 mg/dL (2.5-4.5); POTASSIUM 3.8 mmol/L (3.6-5.0); TOTAL PROTEIN 4.1 g/dL (5.8-8.3)
[2016-08-29 01:33] LABS: INR 1.2 (0.93-1.08); PARTIAL THROMBOPLASTIN TIME 34.8 Seconds (23.7-30.8)
[2016-08-29 01:34] LABS: ADD MANUAL DIFF? YES
[2016-08-29] MEDS ORDERED: Sodium Chloride 0.9% 500 ML IV STA ×2 (01:49→04:36)
[2016-08-29 01:56] LABS: ANISOCYTOSIS 1+; NEUTROPHIL 91 % (50.0-70.0); PLATELET ESTIMATE NORMAL (NORMAL)
[2016-08-29 02:13] LABS: CALCIUM 6.8 mg/dL (8.4-10.5)
[2016-08-29 02:15] LABS: TROPONIN I 35.8 ng/mL
[2016-08-29] MEDS: metroNIDAZOLE IV 500 mg/100 ml 100 ML IVPB SCH ×3 (06:19→21:08)
[2016-08-29 06:23] LABS: ARTERIAL BLOOD GAS HCO3 14.2 mmol/L (21-28); ARTERIAL BLOOD GAS O2 CAPACITY 11.5 mL/dl (16-24); ARTERIAL BLOOD GAS PH 7.33 (7.35-7.45); ARTERIAL BLOOD HGB O2 SAT 93.8 % (95.0-98.0); CARBOXYHEMOGLOBIN 1.5 % (0.5-1.5); METHEMOGLOBIN 0.7 % (0.0-3.0)
[2016-08-29 07:19] LABS: BASO # 0.02 [, K/mm3] (0.0-2.0); BASO % 0.1 % (0.0-3.0); EOS # 0.1 (0.0-0.7); EOS % 0.4 % (1.5-5.0); GRAN # 20.14 (1.4-6.5); GRAN % 90.1 % (50.0-68.0); HEMATOCRIT 26.7 % (42.0-52.0); LYMPH # 0.9 (1.2-3.4); LYMPH % 4.2 % (22.0-35.0); MEAN CELL VOLUME 88.4 fL (80.0-105.0); MEAN CORPUSCULAR HEMOGLOBIN 30.5 pg (25.0-35.0); MEAN CORPUSCULAR HGB CONC 34.5 g/dl (31.0-37.0); MEAN PLATELET VOLUME 13.7 fl (7.0-11.0); MONO # 1.2 (0.1-0.6); MONO % 5.2 % (1.0-6.0); PLATELET COUNT 194 [, 10^3/uL] (120.0-450.0); RED CELL DISTRIBUTION WIDTH 16.5 % (11.5-14.5); WHITE BLOOD COUNT 22.4 [, 10^3/ul] (4.5-11.0)
[2016-08-29 07:21] LABS: ADD MANUAL DIFF? NO
[2016-08-29 07:30] LABS: INR 1.18 (0.93-1.08); PARTIAL THROMBOPLASTIN TIME 34.8 Seconds (23.7-30.8)
--- NOTE | 2016-08-29 07:30 | CP.CCUPN ---
<Izabela Luis - Last Filed: 08/29/16 12:47> CCU Subjective - Physician Review Subjective (Free Text): 08/28/16 09:19 Intubated yesterday for abdominal agonal breath. 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, new compared echo 1 year ago CCU Objective - Vital Signs / Intake & Output Vital Signs (Last 4 hours): Vital Signs Temp Pulse BP Pulse Ox 08/29/16 04:00 98.0 F 91 H 115/56 L 94 L 08/29/16 03:45 104 H 114/55 L 92 L 08/29/16 03:30 103 H 108/53 L 94 L Intake and Output (Last 8hrs): Intake & Output 08/28/16 08/29/16 08/29/16 22:59 06:59 14:59 Intake Total 2395 1115 Output Total 300 425 Balance 2095 690 Intake: IV 2195 1115 Right Antecubital 2195 Right Hand 1115 Oral 200 Output: Urine 300 425 Urethral (Rodrigez) 300 425 Other: Voiding Method Indwelling Catheter - Physical Exam Head: Positive for: Atraumatic, Normocephalic Pupils: Positive for: PERRL Extroacular Muscles: Positive for: EOMI Conjunctiva: Positive for: Other (conjunctival pallor) Mouth: Positive for: Moist Mucous Membranes Neck: Positive for: MIDLINE TENDERNESS (RIJ in place) Respiratory/Chest: Positive for: Clear to Auscultation, Good Air Exchange, Rales , Other (vesicular breath sounds). Negative for: Respiratory Distress, Accessory Muscle Use, Retracting, Rhonchi Cardiovascular: Positive for: Regular Rate and Rhythm, Normal S1, S2. Negative for: Murmurs Abdomen: Positive for: Normal Bowel Sounds. Negative for: Tenderness, Distention, Peritoneal Signs Rectal: Positive for: Hemorrhoids (external), Other (Hematochezia). Negative for: Normal Rectal Tone (dilated rectal tone, soft prostate), Fissures Back: Positive for: Normal Inspection Upper Extremity: Negative for: Edema, Erythema Lower Extremity: Positive for: Edema (2+ Pitting edema of left LE, with long healed scars) Neurological: Negative for: Speech Normal (per son, slurred) Skin: Positive for: Dry, Normal Color, Abrasion (on left UE). Negative for: Warm (cool extremities), Rashes Psychiatric: Negative for: Alert (intubated on propofol) - Medications Active Medications: Active Medications Generic Name Dose Route Start Last Admin Trade Name Freq PRN Reason Stop Dose Admin Acetaminophen 650 mg 08/26/16 16:19 Tylenol 650 Mg Supp RC Q4H PRN Fever >100.4 F Arformoterol Tartrate 15 mcg 08/26/16 20:00 08/28/16 20:25 Brovana IH 15 mcg [id number] YUVAL Administration Aspirin 81 mg 08/29/16 10:00 Ecotrin PO DAILY YUVAL Budesonide 0.5 mg 08/26/16 20:00 08/28/16 20:25 Pulmicort Respules IH 0.5 mg [id number] YUVAL Administration Clopidogrel Bisulfate 75 mg 08/29/16 10:00 Plavix NG DAILY YUVAL Furosemide 40 mg 08/28/16 22:00 08/28/16 22:15 Lasix IVP 40 mg Q12 YUVAL Administration Metronidazole 100 mls @ 100 mls/hr 08/26/16 15:00 08/29/16 06:19 Flagyl IVPB 100 mls/hr Q8 YUVAL Administration Protocol Doxycycline Hyclate 100 mg/ 100 mls @ 100 mls/hr 08/27/16 10:00 08/28/16 21:43 Sodium Chloride IVPB 09/10/16 10:01 100 mls/hr Q12 YUVAL Administration Protocol Propofol 100 mls @ 2.041 mls/hr 08/27/16 14:38 08/29/16 05:19 Diprivan IV 15 mcg/kg/min .Q24H PRN Titration TITRATE PER MD ORDER Protocol 5 MCG/KG/MIN Sodium Bicarbonate 75 meq/ 1,075 mls @ 60 mls/hr 08/27/16 15:20 08/28/16 15:51 Sodium Chloride IV 60 mls/hr .[id number] YUVAL Administration Insulin Human Lispro 0 units 08/26/16 22:00 08/28/16 21:56 Humalog Low SC Not Given ACHS YUVAL Protocol Pantoprazole Sodium 40 mg 08/26/16 22:00 08/28/16 21:38 Protonix Inj IVP 40 mg Q12 YUVAL Administration Vancomycin HCl 250 mg 08/28/16 14:00 08/28/16 21:48 Vancocin 25 Mg/Ml (Oral Use) PO 250 mg QID YUVAL Administration Protocol - Patient Studies Lab Studies: Microbiology Studies 08/27/16 13:53 C. difficile Antigen & Toxin A,B (M - Final Stool No growth. 08/27/16 09:45 Blood Culture - Preliminary Blood NO GROWTH AFTER 24 HOURS 08/27/16 09:45 Blood Culture - Preliminary Blood NO GROWTH AFTER 24 HOURS Lab Studies 08/29/16 08/29/16 08/29/16 Range/Units 07:00 06:00 01:00 WBC 22.4 H 21.5 H (4.5-11.0) 10^3/ul RBC 3.02 L 3.08 L (3.5-6.1) 10^6/uL Hgb 9.2 L 9.2 L (14.0-18.0) gm/dL Hct 26.7 L 26.8 L (42.0-52.0) % MCV 88.4 87.0 (80.0-105.0) fL MCH 30.5 29.9 (25.0-35.0) pg MCHC 34.5 34.3 (31.0-37.0) g/dl RDW 16.5 H 16.3 H (11.5-14.5) % Plt Count 194 175 (120.0-450.0) 10^3/uL MPV 13.7 H 14.2 H (7.0-11.0) fl Gran % 90.1 H (50.0-68.0) % Lymph % (Auto) 4.2 L (22.0-35.0) % Ford % (Auto) 5.2 (1.0-6.0) % Eos % (Auto) 0.4 L (1.5-5.0) % Baso % (Auto) 0.1 (0.0-3.0) % Gran # 20.14 H (1.4-6.5) Lymph # 0.9 L (1.2-3.4) Ford # 1.2 H (0.1-0.6) Eos # 0.1 (0.0-0.7) Baso # 0.02 (0.0-2.0) K/mm3 Neutrophils % (Manual) 91 H (50.0-70.0) % Lymphocytes % (Manual) 4 L (22.0-35.0) % Monocytes % (Manual) 5 (1.0-6.0) % Platelet Evaluation Normal (NORMAL) Anisocytosis (manual) 1+ Retic Count (0.5-1.5) % Haptoglobin (43-212) mg/dL PT 13.0 H (9.9-11.8) Seconds INR 1.20 H (0.93-1.08) APTT 34.8 H (23.7-30.8) Seconds Fibrinogen (187-400) mg/dL pCO2 27 L (35-45) mm/Hg pO2 67.0 L (80-100) mm/Hg HCO3 14.2 L (21-28) mmol/L ABG pH 7.33 L (7.35-7.45) ABG Total CO2 15.0 L (22-28) mmol.L ABG O2 Saturation 95.9 (95-98) % ABG O2 Content 11.0 L (15-23) ML/dl ABG Base Excess -10.6 L (-2.0-3.0) mmol/L ABG Hemoglobin 8.3 L (11.7-17.4) g/dL ABG Carboxyhemoglobin 1.5 (0.5-1.5) % POC ABG HHb (Measured) 4.0 (0-5) % ABG Methemoglobin 0.7 (0.0-3.0) % ABG O2 Capacity 11.5 L (16-24) mL/dl Hgb O2 Saturation 93.8 L (95.0-98.0) % FiO2 60.0 % Sodium 137 (132-148) mmol/L Potassium 3.8 (3.6-5.0) mmol/L Chloride 112 H (98-107) mmol/L Carbon Dioxide 20 L (21-33) mmol/L Anion Gap 9 L (10-20) BUN 98 H (7-21) mg/dL Creatinine 4.9 H (0.5-1.4) mg/dL Est GFR ( Amer) 14 Est GFR (Non-Af Amer) 11 POC Glucose (mg/dL) (65-110) mg/dL Random Glucose 126 H (70-110) mg/dL Hemoglobin A1c (4.2-6.5) % Calcium 6.8 L* (8.4-10.5) mg/dL Phosphorus 4.8 H (2.5-4.5) mg/dL Magnesium 2.0 (1.7-2.2) mg/dL Total Bilirubin 0.5 (0.2-1.3) mg/dL Direct Bilirubin (0.0-0.4) mg/dL AST 52 (15-59) U/L ALT 62 H (7-56) U/L Alkaline Phosphatase 57 (38-133) U/L Lactate Dehydrogenase 1589 H (333-699) U/L Total Creatine Kinase 109 (35-230) U/L Troponin I 35.80 H* D ng/mL Total Protein 4.1 L (5.8-8.3) g/dL Albumin 1.7 L (3.0-4.8) g/dL Globulin 2.4 gm/dL Albumin/Globulin Ratio 0.7 L (1.1-1.8) Proteinase 3 (PR3) (<1.0) AI Myeloperoxidase Ab (<1.0) AI Hepatitis A IgM Ab (NEGATIVE) Hep Bs Antigen (NEGATIVE) Hep B Core IgM Ab (NEGATIVE) Hepatitis C Antibody (NEGATIVE) HIV 1&2 Ag/Ab, 4th Gen (Nonreactive) Malaria Source (NEGATIVE) 08/28/16 08/28/16 08/28/16 Range/Units 22:35 21:43 18:31 WBC 21.9 H 25.3 H* D (4.5-11.0) 10^3/ul RBC 2.92 L 3.06 L (3.5-6.1) 10^6/uL Hgb 8.9 L 9.3 L (14.0-18.0) gm/dL Hct 25.6 L 26.9 L (42.0-52.0) % MCV 87.7 87.9 (80.0-105.0) fL MCH 30.5 30.4 (25.0-35.0) pg MCHC 34.8 34.6 (31.0-37.0) g/dl RDW 16.2 H 16.1 H (11.5-14.5) % Plt Count 170 187 (120.0-450.0) 10^3/uL MPV 13.6 H (7.0-11.0) fl Gran % 89.3 H 90.5 H (50.0-68.0) % Lymph % (Auto) 5.2 L 4.3 L (22.0-35.0) % Ford % (Auto) 5.3 5.1 (1.0-6.0) % Eos % (Auto) 0.2 L 0.1 L (1.5-5.0) % Baso % (Auto) 0.0 0.0 (0.0-3.0) % Gran # 19.58 H 22.92 H (1.4-6.5) Lymph # 1.1 L 1.1 L (1.2-3.4) Ford # 1.2 H 1.3 H (0.1-0.6) Eos # 0.0 0.0 (0.0-0.7) Baso # 0.01 0.01 (0.0-2.0) K/mm3 Neutrophils % (Manual) (50.0-70.0) % Lymphocytes % (Manual) (22.0-35.0) % Monocytes % (Manual) (1.0-6.0) % Platelet Evaluation (NORMAL) Anisocytosis (manual) Retic Count 1.88 H (0.5-1.5) % Haptoglobin (43-212) mg/dL PT 13.2 H (9.9-11.8) Seconds INR 1.22 H (0.93-1.08) APTT 35.0 H (23.7-30.8) Seconds Fibrinogen 402.2 H (187-400) mg/dL pCO2 (35-45) mm/Hg pO2 (80-100) mm/Hg HCO3 (21-28) mmol/L ABG pH (7.35-7.45) ABG Total CO2 (22-28) mmol.L ABG O2 Saturation (95-98) % ABG O2 Content (15-23) ML/dl ABG Base Excess (-2.0-3.0) mmol/L ABG Hemoglobin (11.7-17.4) g/dL ABG Carboxyhemoglobin (0.5-1.5) % POC ABG HHb (Measured) (0-5) % ABG Methemoglobin (0.0-3.0) % ABG O2 Capacity (16-24) mL/dl Hgb O2 Saturation (95.0-98.0) % FiO2 % Sodium 137 (132-148) mmol/L Potassium 4.0 (3.6-5.0) mmol/L Chloride 112 H (98-107) mmol/L Carbon Dioxide 17 L (21-33) mmol/L Anion Gap 12 (10-20) BUN 101 H (7-21) mg/dL Creatinine 4.8 H (0.5-1.4) mg/dL Est GFR ( Amer) 14 Est GFR (Non-Af Amer) 12 POC Glucose (mg/dL) 152 H (65-110) mg/dL Random Glucose 145 H (70-110) mg/dL Hemoglobin A1c (4.2-6.5) % Calcium 6.8 L* (8.4-10.5) mg/dL Phosphorus 5.0 H (2.5-4.5) mg/dL Magnesium 2.1 (1.7-2.2) mg/dL Total Bilirubin 0.6 (0.2-1.3) mg/dL Direct Bilirubin 0.6 H (0.0-0.4) mg/dL AST 61 H (15-59) U/L ALT 72 H (7-56) U/L Alkaline Phosphatase 58 (38-133) U/L Lactate Dehydrogenase 1711 H (333-699) U/L Total Creatine Kinase 146 (35-230) U/L Troponin I 46.00 H* D ng/mL Total Protein 4.1 L (5.8-8.3) g/dL Albumin 1.8 L (3.0-4.8) g/dL Globulin 2.3 gm/dL Albumin/Globulin Ratio 0.8 L (1.1-1.8) Proteinase 3 (PR3) (<1.0) AI Myeloperoxidase Ab (<1.0) AI Hepatitis A IgM Ab (NEGATIVE) Hep Bs Antigen (NEGATIVE) Hep B Core IgM Ab (NEGATIVE) Hepatitis C Antibody (NEGATIVE) HIV 1&2 Ag/Ab, 4th Gen (Nonreactive) Malaria Source (NEGATIVE) 08/28/16 08/28/16 08/28/16 Range/Units 15:57 11:32 07:13 WBC (4.5-11.0) 10^3/ul RBC (3.5-6.1) 10^6/uL Hgb (14.0-18.0) gm/dL Hct (42.0-52.0) % MCV (80.0-105.0) fL MCH (25.0-35.0) pg MCHC (31.0-37.0) g/dl RDW (11.5-14.5) % Plt Count (120.0-450.0) 10^3/uL MPV (7.0-11.0) fl Gran % (50.0-68.0) % Lymph % (Auto) (22.0-35.0) % Ford % (Auto) (1.0-6.0) % Eos % (Auto) (1.5-5.0) % Baso % (Auto) (0.0-3.0) % Gran # (1.4-6.5) Lymph # (1.2-3.4) Ford # (0.1-0.6) Eos # (0.0-0.7) Baso # (0.0-2.0) K/mm3 Neutrophils % (Manual) (50.0-70.0) % Lymphocytes % (Manual) (22.0-35.0) % Monocytes % (Manual) (1.0-6.0) % Platelet Evaluation (NORMAL) Anisocytosis (manual) Retic Count (0.5-1.5) % Haptoglobin (43-212) mg/dL PT (9.9-11.8) Seconds INR (0.93-1.08) APTT (23.7-30.8) Seconds Fibrinogen (187-400) mg/dL pCO2 (35-45) mm/Hg pO2 (80-100) mm/Hg HCO3 (21-28) mmol/L ABG pH (7.35-7.45) ABG Total CO2 (22-28) mmol.L ABG O2 Saturation (95-98) % ABG O2 Content (15-23) ML/dl ABG Base Excess (-2.0-3.0) mmol/L ABG Hemoglobin (11.7-17.4) g/dL ABG Carboxyhemoglobin (0.5-1.5) % POC ABG HHb (Measured) (0-5) % ABG Methemoglobin (0.0-3.0) % ABG O2 Capacity (16-24) mL/dl Hgb O2 Saturation (95.0-98.0) % FiO2 % Sodium (132-148) mmol/L Potassium (3.6-5.0) mmol/L Chloride (98-107) mmol/L Carbon Dioxide (21-33) mmol/L Anion Gap (10-20) BUN (7-21) mg/dL Creatinine (0.5-1.4) mg/dL Est GFR ( Amer) Est GFR (Non-Af Amer) POC Glucose (mg/dL) 169 H 150 H 160 H (65-110) mg/dL Random Glucose (70-110) mg/dL Hemoglobin A1c (4.2-6.5) % Calcium (8.4-10.5) mg/dL Phosphorus (2.5-4.5) mg/dL Magnesium (1.7-2.2) mg/dL Total Bilirubin (0.2-1.3) mg/dL Direct Bilirubin (0.0-0.4) mg/dL AST (15-59) U/L ALT (7-56) U/L Alkaline Phosphatase (38-133) U/L Lactate Dehydrogenase (333-699) U/L Total Creatine Kinase (35-230) U/L Troponin I ng/mL Total Protein (5.8-8.3) g/dL Albumin (3.0-4.8) g/dL Globulin gm/dL Albumin/Globulin Ratio (1.1-1.8) Proteinase 3 (PR3) (<1.0) AI Myeloperoxidase Ab (<1.0) AI Hepatitis A IgM Ab (NEGATIVE) Hep Bs Antigen (NEGATIVE) Hep B Core IgM Ab (NEGATIVE) Hepatitis C Antibody (NEGATIVE) HIV 1&2 Ag/Ab, 4th Gen (Nonreactive) Malaria Source (NEGATIVE) 08/28/16 08/27/16 08/27/16 Range/Units 05:30 09:45 09:00 WBC (4.5-11.0) 10^3/ul RBC (3.5-6.1) 10^6/uL Hgb (14.0-18.0) gm/dL Hct (42.0-52.0) % MCV (80.0-105.0) fL MCH (25.0-35.0) pg MCHC (31.0-37.0) g/dl RDW (11.5-14.5) % Plt Count (120.0-450.0) 10^3/uL MPV (7.0-11.0) fl Gran % (50.0-68.0) % Lymph % (Auto) (22.0-35.0) % Ford % (Auto) (1.0-6.0) % Eos % (Auto) (1.5-5.0) % Baso % (Auto) (0.0-3.0) % Gran # (1.4-6.5) Lymph # (1.2-3.4) Ford # (0.1-0.6) Eos # (0.0-0.7) Baso # (0.0-2.0) K/mm3 Neutrophils % (Manual) (50.0-70.0) % Lymphocytes % (Manual) (22.0-35.0) % Monocytes % (Manual) (1.0-6.0) % Platelet Evaluation (NORMAL) Anisocytosis (manual) Retic Count (0.5-1.5) % Haptoglobin 158 (43-212) mg/dL PT (9.9-11.8) Seconds INR (0.93-1.08) APTT (23.7-30.8) Seconds Fibrinogen (187-400) mg/dL pCO2 (35-45) mm/Hg pO2 (80-100) mm/Hg HCO3 (21-28) mmol/L ABG pH (7.35-7.45) ABG Total CO2 (22-28) mmol.L ABG O2 Saturation (95-98) % ABG O2 Content (15-23) ML/dl ABG Base Excess (-2.0-3.0) mmol/L ABG Hemoglobin (11.7-17.4) g/dL ABG Carboxyhemoglobin (0.5-1.5) % POC ABG HHb (Measured) (0-5) % ABG Methemoglobin (0.0-3.0) % ABG O2 Capacity (16-24) mL/dl Hgb O2 Saturation (95.0-98.0) % FiO2 % Sodium (132-148) mmol/L Potassium (3.6-5.0) mmol/L Chloride (98-107) mmol/L Carbon Dioxide (21-33) mmol/L Anion Gap (10-20) BUN (7-21) mg/dL Creatinine (0.5-1.4) mg/dL Est GFR ( Amer) Est GFR (Non-Af Amer) POC Glucose (mg/dL) (65-110) mg/dL Random Glucose (70-110) mg/dL Hemoglobin A1c (4.2-6.5) % Calcium (8.4-10.5) mg/dL Phosphorus 4.9 H (2.5-4.5) mg/dL Magnesium 2.2 (1.7-2.2) mg/dL Total Bilirubin (0.2-1.3) mg/dL Direct Bilirubin (0.0-0.4) mg/dL AST (15-59) U/L ALT (7-56) U/L Alkaline Phosphatase (38-133) U/L Lactate Dehydrogenase (333-699) U/L Total Creatine Kinase (35-230) U/L Troponin I ng/mL Total Protein (5.8-8.3) g/dL Albumin (3.0-4.8) g/dL Globulin gm/dL Albumin/Globulin Ratio (1.1-1.8) Proteinase 3 (PR3) <1.0 (<1.0) AI Myeloperoxidase Ab <1.0 (<1.0) AI Hepatitis A IgM Ab Negative (NEGATIVE) Hep Bs Antigen Negative (NEGATIVE) Hep B Core IgM Ab Negative (NEGATIVE) Hepatitis C Antibody Negative (NEGATIVE) HIV 1&2 Ag/Ab, 4th Gen Nonreactive (Nonreactive) Malaria Source See note (NEGATIVE) 08/26/16 Range/Units 21:00 WBC (4.5-11.0) 10^3/ul RBC (3.5-6.1) 10^6/uL Hgb (14.0-18.0) gm/dL Hct (42.0-52.0) % MCV (80.0-105.0) fL MCH (25.0-35.0) pg MCHC (31.0-37.0) g/dl RDW (11.5-14.5) % Plt Count (120.0-450.0) 10^3/uL MPV (7.0-11.0) fl Gran % (50.0-68.0) % Lymph % (Auto) (22.0-35.0) % Ford % (Auto) (1.0-6.0) % Eos % (Auto) (1.5-5.0) % Baso % (Auto) (0.0-3.0) % Gran # (1.4-6.5) Lymph # (1.2-3.4) Ford # (0.1-0.6) Eos # (0.0-0.7) Baso # (0.0-2.0) K/mm3 Neutrophils % (Manual) (50.0-70.0) % Lymphocytes % (Manual) (22.0-35.0) % Monocytes % (Manual) (1.0-6.0) % Platelet Evaluation (NORMAL) Anisocytosis (manual) Retic Count (0.5-1.5) % Haptoglobin (43-212) mg/dL PT (9.9-11.8) Seconds INR (0.93-1.08) APTT (23.7-30.8) Seconds Fibrinogen (187-400) mg/dL pCO2 (35-45) mm/Hg pO2 (80-100) mm/Hg HCO3 (21-28) mmol/L ABG pH (7.35-7.45) ABG Total CO2 (22-28) mmol.L ABG O2 Saturation (95-98) % ABG O2 Content (15-23) ML/dl ABG Base Excess (-2.0-3.0) mmol/L ABG Hemoglobin (11.7-17.4) g/dL ABG Carboxyhemoglobin (0.5-1.5) % POC ABG HHb (Measured) (0-5) % ABG Methemoglobin (0.0-3.0) % ABG O2 Capacity (16-24) mL/dl Hgb O2 Saturation (95.0-98.0) % FiO2 % Sodium (132-148) mmol/L Potassium (3.6-5.0) mmol/L Chloride (98-107) mmol/L Carbon Dioxide (21-33) mmol/L Anion Gap (10-20) BUN (7-21) mg/dL Creatinine (0.5-1.4) mg/dL Est GFR ( Amer) Est GFR (Non-Af Amer) POC Glucose (mg/dL) (65-110) mg/dL Random Glucose (70-110) mg/dL Hemoglobin A1c 6.7 H (4.2-6.5) % Calcium (8.4-10.5) mg/dL Phosphorus (2.5-4.5) mg/dL Magnesium (1.7-2.2) mg/dL Total Bilirubin (0.2-1.3) mg/dL Direct Bilirubin (0.0-0.4) mg/dL AST (15-59) U/L ALT (7-56) U/L Alkaline Phosphatase (38-133) U/L Lactate Dehydrogenase (333-699) U/L Total Creatine Kinase (35-230) U/L Troponin I ng/mL Total Protein (5.8-8.3) g/dL Albumin (3.0-4.8) g/dL Globulin gm/dL Albumin/Globulin Ratio (1.1-1.8) Proteinase 3 (PR3) (<1.0) AI Myeloperoxidase Ab (<1.0) AI Hepatitis A IgM Ab (NEGATIVE) Hep Bs Antigen (NEGATIVE) Hep B Core IgM Ab (NEGATIVE) Hepatitis C Antibody (NEGATIVE) HIV 1&2 Ag/Ab, 4th Gen (Nonreactive) Malaria Source (NEGATIVE) Laboratory Results - last 24 hr 08/26/16 08/27/16 08/27/16 21:00 09:00 09:45 WBC RBC Hgb Hct MCV MCH MCHC RDW Plt Count MPV Gran % Lymph % (Auto) Ford % (Auto) Eos % (Auto) Baso % (Auto) Gran # Lymph # Ford # Eos # Baso # Neutrophils % (Manual) Lymphocytes % (Manual) Monocytes % (Manual) Platelet Evaluation Anisocytosis (manual) Retic Count Haptoglobin 158 PT INR APTT Fibrinogen pCO2 pO2 HCO3 ABG pH ABG Total CO2 ABG O2 Saturation ABG O2 Content ABG Base Excess ABG Hemoglobin ABG Carboxyhemoglobin POC ABG HHb (Measured) ABG Methemoglobin ABG O2 Capacity Hgb O2 Saturation FiO2 Sodium Potassium Chloride Carbon Dioxide Anion Gap BUN Creatinine Est GFR ( Amer) Est GFR (Non-Af Amer) POC Glucose (mg/dL) Random Glucose Hemoglobin A1c 6.7 H Calcium Phosphorus Magnesium Total Bilirubin Direct Bilirubin AST ALT Alkaline Phosphatase Lactate Dehydrogenase Total Creatine Kinase Troponin I Total Protein Albumin Globulin Albumin/Globulin Ratio Proteinase 3 (PR3) <1.0 Myeloperoxidase Ab <1.0 Hepatitis A IgM Ab Negative Hep Bs Antigen Negative Hep B Core IgM Ab Negative Hepatitis C Antibody Negative HIV 1&2 Ag/Ab, 4th Gen Nonreactive Malaria Source See note 08/28/16 08/28/16 08/28/16 05:30 07:13 11:32 WBC RBC Hgb Hct MCV MCH MCHC RDW Plt Count MPV Gran % Lymph % (Auto) Ford % (Auto) Eos % (Auto) Baso % (Auto) Gran # Lymph # Ford # Eos # Baso # Neutrophils % (Manual) Lymphocytes % (Manual) Monocytes % (Manual) Platelet Evaluation Anisocytosis (manual) Retic Count Haptoglobin PT INR APTT Fibrinogen pCO2 pO2 HCO3 ABG pH ABG Total CO2 ABG O2 Saturation ABG O2 Content ABG Base Excess ABG Hemoglobin ABG Carboxyhemoglobin POC ABG HHb (Measured) ABG Methemoglobin ABG O2 Capacity Hgb O2 Saturation FiO2 Sodium Potassium Chloride Carbon Dioxide Anion Gap BUN Creatinine Est GFR ( Amer) Est GFR (Non-Af Amer) POC Glucose (mg/dL) 160 H 150 H Random Glucose Hemoglobin A1c Calcium Phosphorus 4.9 H Magnesium 2.2 Total Bilirubin Direct Bilirubin AST ALT Alkaline Phosphatase Lactate Dehydrogenase Total Creatine Kinase Troponin I Total Protein Albumin Globulin Albumin/Globulin Ratio Proteinase 3 (PR3) Myeloperoxidase Ab Hepatitis A IgM Ab Hep Bs Antigen Hep B Core IgM Ab Hepatitis C Antibody HIV 1&2 Ag/Ab, 4th Gen Malaria Source 08/28/16 08/28/16 08/28/16 15:57 18:31 21:43 WBC 25.3 H* D RBC 3.06 L Hgb 9.3 L Hct 26.9 L MCV 87.9 MCH 30.4 MCHC 34.6 RDW 16.1 H Plt Count 187 MPV 13.6 H Gran % 90.5 H Lymph % (Auto) 4.3 L Ford % (Auto) 5.1 Eos % (Auto) 0.1 L Baso % (Auto) 0.0 Gran # 22.92 H Lymph # 1.1 L Ford # 1.3 H Eos # 0.0 Baso # 0.01 Neutrophils % (Manual) Lymphocytes % (Manual) Monocytes % (Manual) Platelet Evaluation Anisocytosis (manual) Retic Count 1.88 H Haptoglobin PT 13.2 H INR 1.22 H APTT 35.0 H Fibrinogen 402.2 H pCO2 pO2 HCO3 ABG pH ABG Total CO2 ABG O2 Saturation ABG O2 Content ABG Base Excess ABG Hemoglobin ABG Carboxyhemoglobin POC ABG HHb (Measured) ABG Methemoglobin ABG O2 Capacity Hgb O2 Saturation FiO2 Sodium 137 Potassium 4.0 Chloride 112 H Carbon Dioxide 17 L Anion Gap 12 BUN 101 H Creatinine 4.8 H Est GFR ( Amer) 14 Est GFR (Non-Af Amer) 12 POC Glucose (mg/dL) 169 H 152 H Random Glucose 145 H Hemoglobin A1c Calcium 6.8 L* Phosphorus 5.0 H Magnesium 2.1 Total Bilirubin 0.6 Direct Bilirubin 0.6 H AST 61 H ALT 72 H Alkaline Phosphatase 58 Lactate Dehydrogenase 1711 H Total Creatine Kinase 146 Troponin I 46.00 H* D Total Protein 4.1 L Albumin 1.8 L Globulin 2.3 Albumin/Globulin Ratio 0.8 L Proteinase 3 (PR3) Myeloperoxidase Ab Hepatitis A IgM Ab Hep Bs Antigen Hep B Core IgM Ab Hepatitis C Antibody HIV 1&2 Ag/Ab, 4th [facility] 08/28/16 08/29/16 08/29/16 22:35 01:00 06:00 WBC 21.9 H 21.5 H RBC 2.92 L 3.08 L Hgb 8.9 L 9.2 L Hct 25.6 L 26.8 L MCV 87.7 87.0 MCH 30.5 29.9 MCHC 34.8 34.3 RDW 16.2 H 16.3 H Plt Count 170 175 MPV 14.2 H Gran % 89.3 H Lymph % (Auto) 5.2 L Ford % (Auto) 5.3 Eos % (Auto) 0.2 L Baso % (Auto) 0.0 Gran # 19.58 H Lymph # 1.1 L Ford # 1.2 H Eos # 0.0 Baso # 0.01 Neutrophils % (Manual) 91 H Lymphocytes % (Manual) 4 L Monocytes % (Manual) 5 Platelet Evaluation Normal Anisocytosis (manual) 1+ Retic Count Haptoglobin PT 13.0 H INR 1.20 H APTT 34.8 H Fibrinogen pCO2 27 L pO2 67.0 L HCO3 14.2 L ABG pH 7.33 L ABG Total CO2 15.0 L ABG O2 Saturation 95.9 ABG O2 Content 11.0 L ABG Base Excess -10.6 L ABG Hemoglobin 8.3 L ABG Carboxyhemoglobin 1.5 POC ABG HHb (Measured) 4.0 ABG Methemoglobin 0.7 ABG O2 Capacity 11.5 L Hgb O2 Saturation 93.8 L FiO2 60.0 Sodium 137 Potassium 3.8 Chloride 112 H Carbon Dioxide 20 L Anion Gap 9 L BUN 98 H Creatinine 4.9 H Est GFR ( Amer) 14 Est GFR (Non-Af Amer) 11 POC Glucose (mg/dL) Random Glucose 126 H Hemoglobin A1c Calcium 6.8 L* Phosphorus 4.8 H Magnesium 2.0 Total Bilirubin 0.5 Direct Bilirubin AST 52 ALT 62 H Alkaline Phosphatase 57 Lactate Dehydrogenase 1589 H Total Creatine Kinase 109 Troponin I 35.80 H* D Total Protein 4.1 L Albumin 1.7 L Globulin 2.4 Albumin/Globulin Ratio 0.7 L Proteinase 3 (PR3) Myeloperoxidase Ab Hepatitis A IgM Ab Hep Bs Antigen Hep B Core IgM Ab Hepatitis C Antibody HIV 1&2 Ag/Ab, 4[facility] 08/29/16 07:00 WBC 22.4 H RBC 3.02 L Hgb 9.2 L Hct 26.7 L MCV 88.4 MCH 30.5 MCHC 34.5 RDW 16.5 H Plt Count 194 MPV 13.7 H Gran % 90.1 H Lymph % (Auto) 4.2 L Ford % (Auto) 5.2 Eos % (Auto) 0.4 L Baso % (Auto) 0.1 Gran # 20.14 H Lymph # 0.9 L Ford # 1.2 H Eos # 0.1 Baso # 0.02 Neutrophils % (Manual) Lymphocytes % (Manual) Monocytes % (Manual) Platelet Evaluation Anisocytosis (manual) Retic Count Haptoglobin PT INR APTT Fibrinogen pCO2 pO2 HCO3 ABG pH ABG Total CO2 ABG O2 Saturation ABG O2 Content ABG Base Excess ABG Hemoglobin ABG Carboxyhemoglobin POC ABG HHb (Measured) ABG Methemoglobin ABG O2 Capacity Hgb O2 Saturation FiO2 Sodium Potassium Chloride Carbon Dioxide Anion Gap BUN Creatinine Est GFR ( Amer) Est GFR (Non-Af Amer) POC Glucose (mg/dL) Random Glucose Hemoglobin A1c Calcium Phosphorus Magnesium Total Bilirubin Direct Bilirubin AST ALT Alkaline Phosphatase Lactate Dehydrogenase Total Creatine Kinase Troponin I Total Protein Albumin Globulin Albumin/Globulin Ratio Proteinase 3 (PR3) Myeloperoxidase Ab Hepatitis A IgM Ab Hep Bs Antigen Hep B Core IgM Ab Hepatitis C Antibody HIV 1&2 Ag/Ab, 4[facility] Fingerstick Blood Sugar Results: 152 Assessment/Plan - Assessment and Plan (Free Text) Plan: 82 years old male was found unconscious on the floor on Sunday (08/26) covered with melonic stool with maroon blood clots. Pt had worsened L weakness compared to baseline, slurred speech, and new L nathan-neglect on Good Sunday (08/25). He has NSTEMI \ GI bleed \ Blood loss anemia \ [place]YSON on CKD \ Elevated LFT \ PNA \ Sepsis \ Hx ITP \ ro CVA - Pt intubated for agonal breath due to metabolic acidosis - Active GI bleed, now resolved, EGD no active bleed - lkely upper, likely from PUD (Plavix vs H pylori vs immunogenic) vs infectious vs autoimmune vs ischemic. Unlikely from trauma. Hb 5.7 --> 9.4 s/p 4u pRBC, With Hb this low, likely a chronic bleeder. - NSTEMI; Cardio-renal syndrome (dry intravascular, wet lung) - AMS - metabolic encephalopathy due to electrolytes vs sepsis; suspected stroke - Suspected new stroke - new slur speech, L hemineglect, suddened worsening of L weakness - Sepsis - PNA vs UTI. CT confirmed protitis. 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 - Brovana Q12; Pulmicort Q12 (hold because intubation) Cardio - Cardiorenal syndrome - Given 80 Lasix - will consider albumin - will consider dobutamin - while pending dialysis decision - NSTEMI - Dr. Samson following on poss catherterization. No active GI bleed - [ ] trend cardiac enzyme, CMP, Mg/Phos, and H/H q6 - Will start ASA and Plavix today. - Hb goal in LA is above 8-9. - EF 35% (systolic and diastolic componenet), poor wall motion, drastic change compared to echo 1 year ago - IS IT DUE TO NSTMEI? - Pending Dr. Samson on Cath decision, which needs contrast - pending dialysis decision - Hx paroxysmal a-fib, CAD with stent, HTN, HLD; Hx L Carotid endartectomy - Home meds: Aliskiren/Amlodipine 150/5mg daily; Lisinopril 2.5 PO; Metoprolol 50 BIDOn metoprolol - ON HOLD Pulm - No ready to wean off ventilation - pulmonary edema - ALLYSON - intrinsic - pt still need vent to help respiratory compensation and overcome heart failure - Severe sepsis with CAP - Left pleural effusion. Right lower lobe infiltrate. - Increased secretion - Chest PT, Duoneb PRN, Suction PRN, pulm toiletry PRN GI - Hb 5.6 --> 9 after 4p RBC - NPO - Protonix IV BID - C.diff toxin and antigen sent - Bedside Endoscopy (08/28) showed no active bleed, barretts and PUD (1 organized healed scab, 2 clean based) no web - Chest, abdomen, pelvis w.o contrast: Proctitis - Abd u/s: Cholelithiasis with gallbladder wall thickening; sma;; perocholecystic fluid. No sono martinez sign. Fatty liver Nephro - Call and left message Re: decision on temp dialysis - strict i/o. u/o adequate - Bicarb 75meq with 1/2 NS @ 60 Endo - Hx IDDM - ISSS-low. Accu-check ACHS - hyperK s/p D50, insulin, albuterol. Avoid Kayexaltate in setting of GI bleed Heme - Per heme, cancel platelet - Hx ITP - LE dupplers b/l negative - DIC vs HUS vs TTP (Renal failure, AMS, fever, WBC keenan high, low plt) - concern hemolytic anemia - hepatitis, babesia, malaric, retic, LDH, heptoglobin, hemolytic anemia workip, mycoplasma - Anemia, acute on chronic, 2/2 GI bleed, ASA/Plavix on hold, s/p 4u RBC - Chronic ITP, failed outpt steroids and rituximab, on thrombopoeitin receptor agonist since 2014, failed to f/u, Promacta on hold for now. Goal plt on promacta should be 50K - DIC/HUS/TTP work up: Fibrinogen, peripheral smear, reticulocytes, LDH, haptoglobin, indirect bilirubin, CMP Infectious - flagyl (day 4), doxy for atypical (day 3) - C.diff negative stop Vancomycin PO (day 3); OFF cefepime (day 2) - PNA work up: urine legionella, M. Pneumonia EIA, mycoplasma Igg, procal - Hemorrhagic stool work up: Babesia, malaria, GBM Ab, parvo B19, ANCA, mau - s/p yunior collins - Barrios culture sent. No growth 24 hours. Negative MRSA screen - tylenol PRN Prophlaxis - SCD - Protonix GI bleed dose Prognosis - Poor: Pneumonia severity index 257: Risk V. 30% mortality - Full Code S/R/D/w Dr. Lizzie Rouse. - Date & Time Date: 08/29/16 Time: 07:30 <Cristi Rouse MD H - Last Filed: 08/29/16 13:41> CCU Objective - Vital Signs / Intake & Output Vital Signs (Last 4 hours): Vital Signs BP 08/29/16 11:12 140/58 L Intake and Output (Last 8hrs): Intake & Output 08/28/16 08/29/16 08/29/16 22:59 06:59 14:59 Intake Total 2395 1115 Output Total 300 425 Balance 2095 690 Intake: IV 2195 1115 Right Antecubital 2195 Right Hand 1115 Oral 200 Output: Urine 300 425 Urethral (Rodrigez) 300 425 Other: Voiding Method Indwelling Catheter - Medications Active Medications: Active Medications Generic Name Dose Route Start Last Admin Trade Name Freq PRN Reason Stop Dose Admin Acetaminophen 650 mg 08/26/16 16:19 Tylenol 650 Mg Supp RC Q4H PRN Fever >100.4 F Arformoterol Tartrate 15 mcg 08/26/16 20:00 08/29/16 07:49 Brovana IH 15 mcg [id number] YUVAL Administration Aspirin 81 mg 08/29/16 10:00 08/29/16 11:12 Ecotrin PO 81 mg DAILY YUVAL Administration Budesonide 0.5 mg 08/26/16 20:00 08/29/16 07:49 Pulmicort Respules IH 0.5 mg [id number] YUVAL Administration Clopidogrel Bisulfate 75 mg 08/29/16 10:00 08/29/16 11:12 Plavix NG 75 mg DAILY YUVAL Administration Furosemide 40 mg 08/28/16 22:00 08/29/16 12:17 Lasix IVP Not Given Q12 YUVAL Metronidazole 100 mls @ 100 mls/hr 08/26/16 15:00 08/29/16 06:19 Flagyl IVPB 100 mls/hr Q8 YUVAL Administration Protocol Doxycycline Hyclate 100 mg/ 100 mls @ 100 mls/hr 08/27/16 10:00 08/29/16 11:13 Sodium Chloride IVPB 09/10/16 10:01 100 mls/hr Q12 YUVAL Administration Protocol Dexmedetomidine HCl 100 mls @ 3.59 mls/hr 08/29/16 10:40 08/29/16 11:57 Precedex 4 Mcg/Ml (100 Ml) IV 1.2 mcg/kg/hr .Q24H PRN Titration Agitation Protocol 0.2 MCG/KG/HR Insulin Human Lispro 0 units 08/26/16 22:00 08/29/16 12:16 Humalog Low SC Not Given ACHS YUVAL Protocol Pantoprazole Sodium 40 mg 08/26/16 22:00 08/29/16 11:12 Protonix Inj IVP 40 mg Q12 YUVAL Administration - Patient Studies Lab Studies: Microbiology Studies 08/27/16 09:45 Blood Culture - Preliminary Blood NO GROWTH AFTER 48 HOURS 08/27/16 09:45 Blood Culture - Preliminary Blood NO GROWTH AFTER 48 HOURS 08/27/16 13:53 C. difficile Antigen & Toxin A,B (M - Final Stool No growth. Lab Studies 08/29/16 08/29/16 08/29/16 Range/Units 11:50 08:04 07:00 WBC 22.4 H (4.5-11.0) 10^3/ul RBC 3.02 L (3.5-6.1) 10^6/uL Hgb 9.2 L (14.0-18.0) gm/dL Hct 26.7 L (42.0-52.0) % MCV 88.4 (80.0-105.0) fL MCH 30.5 (25.0-35.0) pg MCHC 34.5 (31.0-37.0) g/dl RDW 16.5 H (11.5-14.5) % Plt Count 194 (120.0-450.0) 10^3/uL MPV 13.7 H (7.0-11.0) fl Gran % 90.1 H (50.0-68.0) % Lymph % (Auto) 4.2 L (22.0-35.0) % Ford % (Auto) 5.2 (1.0-6.0) % Eos % (Auto) 0.4 L (1.5-5.0) % Baso % (Auto) 0.1 (0.0-3.0) % Gran # 20.14 H (1.4-6.5) Lymph # 0.9 L (1.2-3.4) Ford # 1.2 H (0.1-0.6) Eos # 0.1 (0.0-0.7) Baso # 0.02 (0.0-2.0) K/mm3 Neutrophils % (Manual) (50.0-70.0) % Lymphocytes % (Manual) (22.0-35.0) % Monocytes % (Manual) (1.0-6.0) % Platelet Evaluation (NORMAL) Anisocytosis (manual) Retic Count (0.5-1.5) % Haptoglobin (43-212) mg/dL PT 12.7 H (9.9-11.8) Seconds INR 1.18 H (0.93-1.08) APTT 34.8 H (23.7-30.8) Seconds Fibrinogen (187-400) mg/dL pCO2 (35-45) mm/Hg pO2 (80-100) mm/Hg HCO3 (21-28) mmol/L ABG pH (7.35-7.45) ABG Total CO2 (22-28) mmol.L ABG O2 Saturation (95-98) % ABG O2 Content (15-23) ML/dl ABG Base Excess (-2.0-3.0) mmol/L ABG Hemoglobin (11.7-17.4) g/dL ABG Carboxyhemoglobin (0.5-1.5) % POC ABG HHb (Measured) (0-5) % ABG Methemoglobin (0.0-3.0) % ABG O2 Capacity (16-24) mL/dl Hgb O2 Saturation (95.0-98.0) % FiO2 % Sodium 141 (132-148) mmol/L Potassium 3.8 (3.6-5.0) mmol/L Chloride 115 H (98-107) mmol/L Carbon Dioxide 18 L (21-33) mmol/L Anion Gap 12 (10-20) BUN 96 H (7-21) mg/dL Creatinine 4.8 H (0.5-1.4) mg/dL Est GFR ( Amer) 14 Est GFR (Non-Af Amer) 12 POC Glucose (mg/dL) 119 H 129 H (65-110) mg/dL Random Glucose 110 (70-110) mg/dL Calcium 6.8 L* (8.4-10.5) mg/dL Phosphorus 4.8 H (2.5-4.5) mg/dL Magnesium 2.0 (1.7-2.2) mg/dL Total Bilirubin 0.6 (0.2-1.3) mg/dL Direct Bilirubin (0.0-0.4) mg/dL AST 44 (15-59) U/L ALT 62 H (7-56) U/L Alkaline Phosphatase 57 (38-133) U/L Lactate Dehydrogenase 1450 H (333-699) U/L Total Creatine Kinase 97 (35-230) U/L Troponin I 30.10 H* ng/mL Total Protein 4.2 L (5.8-8.3) g/dL Albumin 1.7 L (3.0-4.8) g/dL Globulin 2.4 gm/dL Albumin/Globulin Ratio 0.7 L (1.1-1.8) Random Vancomycin 11.4 L (20.0-40.0) ug/mL Proteinase 3 (PR3) (<1.0) AI Myeloperoxidase Ab (<1.0) AI Mycoplasma pneumon IgM (<770) U/mL Parvovirus B19 IgM Ab (<0.9) 08/29/16 08/29/16 08/28/16 Range/Units 06:00 01:00 22:35 WBC 21.5 H 21.9 H (4.5-11.0) 10^3/ul RBC 3.08 L 2.92 L (3.5-6.1) 10^6/uL Hgb 9.2 L 8.9 L (14.0-18.0) gm/dL Hct 26.8 L 25.6 L (42.0-52.0) % MCV 87.0 87.7 (80.0-105.0) fL MCH 29.9 30.5 (25.0-35.0) pg MCHC 34.3 34.8 (31.0-37.0) g/dl RDW 16.3 H 16.2 H (11.5-14.5) % Plt Count 175 170 (120.0-450.0) 10^3/uL MPV 14.2 H (7.0-11.0) fl Gran % 89.3 H (50.0-68.0) % Lymph % (Auto) 5.2 L (22.0-35.0) % Ford % (Auto) 5.3 (1.0-6.0) % Eos % (Auto) 0.2 L (1.5-5.0) % Baso % (Auto) 0.0 (0.0-3.0) % Gran # 19.58 H (1.4-6.5) Lymph # 1.1 L (1.2-3.4) Ford # 1.2 H (0.1-0.6) Eos # 0.0 (0.0-0.7) Baso # 0.01 (0.0-2.0) K/mm3 Neutrophils % (Manual) 91 H (50.0-70.0) % Lymphocytes % (Manual) 4 L (22.0-35.0) % Monocytes % (Manual) 5 (1.0-6.0) % Platelet Evaluation Normal (NORMAL) Anisocytosis (manual) 1+ Retic Count (0.5-1.5) % Haptoglobin (43-212) mg/dL PT 13.0 H (9.9-11.8) Seconds INR 1.20 H (0.93-1.08) APTT 34.8 H (23.7-30.8) Seconds Fibrinogen (187-400) mg/dL pCO2 27 L (35-45) mm/Hg pO2 67.0 L (80-100) mm/Hg HCO3 14.2 L (21-28) mmol/L ABG pH 7.33 L (7.35-7.45) ABG Total CO2 15.0 L (22-28) mmol.L ABG O2 Saturation 95.9 (95-98) % ABG O2 Content 11.0 L (15-23) ML/dl ABG Base Excess -10.6 L (-2.0-3.0) mmol/L ABG Hemoglobin 8.3 L (11.7-17.4) g/dL ABG Carboxyhemoglobin 1.5 (0.5-1.5) % POC ABG HHb (Measured) 4.0 (0-5) % ABG Methemoglobin 0.7 (0.0-3.0) % ABG O2 Capacity 11.5 L (16-24) mL/dl Hgb O2 Saturation 93.8 L (95.0-98.0) % FiO2 60.0 % Sodium 137 (132-148) mmol/L Potassium 3.8 (3.6-5.0) mmol/L Chloride 112 H (98-107) mmol/L Carbon Dioxide 20 L (21-33) mmol/L Anion Gap 9 L (10-20) BUN 98 H (7-21) mg/dL Creatinine 4.9 H (0.5-1.4) mg/dL Est GFR ( Amer) 14 Est GFR (Non-Af Amer) 11 POC Glucose (mg/dL) (65-110) mg/dL Random Glucose 126 H (70-110) mg/dL Calcium 6.8 L* (8.4-10.5) mg/dL Phosphorus 4.8 H (2.5-4.5) mg/dL Magnesium 2.0 (1.7-2.2) mg/dL Total Bilirubin 0.5 (0.2-1.3) mg/dL Direct Bilirubin (0.0-0.4) mg/dL AST 52 (15-59) U/L ALT 62 H (7-56) U/L Alkaline Phosphatase 57 (38-133) U/L Lactate Dehydrogenase 1589 H (333-699) U/L Total Creatine Kinase 109 (35-230) U/L Troponin I 35.80 H* D ng/mL Total Protein 4.1 L (5.8-8.3) g/dL Albumin 1.7 L (3.0-4.8) g/dL Globulin 2.4 gm/dL Albumin/Globulin Ratio 0.7 L (1.1-1.8) Random Vancomycin (20.0-40.0) ug/mL Proteinase 3 (PR3) (<1.0) AI Myeloperoxidase Ab (<1.0) AI Mycoplasma pneumon IgM (<770) U/mL Parvovirus B19 IgM Ab (<0.9) 08/28/16 08/28/16 08/28/16 Range/Units 21:43 18:31 15:57 WBC 25.3 H* D (4.5-11.0) 10^3/ul RBC 3.06 L (3.5-6.1) 10^6/uL Hgb 9.3 L (14.0-18.0) gm/dL Hct 26.9 L (42.0-52.0) % MCV 87.9 (80.0-105.0) fL MCH 30.4 (25.0-35.0) pg MCHC 34.6 (31.0-37.0) g/dl RDW 16.1 H (11.5-14.5) % Plt Count 187 (120.0-450.0) 10^3/uL MPV 13.6 H (7.0-11.0) fl Gran % 90.5 H (50.0-68.0) % Lymph % (Auto) 4.3 L (22.0-35.0) % Ford % (Auto) 5.1 (1.0-6.0) % Eos % (Auto) 0.1 L (1.5-5.0) % Baso % (Auto) 0.0 (0.0-3.0) % Gran # 22.92 H (1.4-6.5) Lymph # 1.1 L (1.2-3.4) Ford # 1.3 H (0.1-0.6) Eos # 0.0 (0.0-0.7) Baso # 0.01 (0.0-2.0) K/mm3 Neutrophils % (Manual) (50.0-70.0) % Lymphocytes % (Manual) (22.0-35.0) % Monocytes % (Manual) (1.0-6.0) % Platelet Evaluation (NORMAL) Anisocytosis (manual) Retic Count 1.88 H (0.5-1.5) % Haptoglobin (43-212) mg/dL PT 13.2 H (9.9-11.8) Seconds INR 1.22 H (0.93-1.08) APTT 35.0 H (23.7-30.8) Seconds Fibrinogen 402.2 H (187-400) mg/dL pCO2 (35-45) mm/Hg pO2 (80-100) mm/Hg HCO3 (21-28) mmol/L ABG pH (7.35-7.45) ABG Total CO2 (22-28) mmol.L ABG O2 Saturation (95-98) % ABG O2 Content (15-23) ML/dl ABG Base Excess (-2.0-3.0) mmol/L ABG Hemoglobin (11.7-17.4) g/dL ABG Carboxyhemoglobin (0.5-1.5) % POC ABG HHb (Measured) (0-5) % ABG Methemoglobin (0.0-3.0) % ABG O2 Capacity (16-24) mL/dl Hgb O2 Saturation (95.0-98.0) % FiO2 % Sodium 137 (132-148) mmol/L Potassium 4.0 (3.6-5.0) mmol/L Chloride 112 H (98-107) mmol/L Carbon Dioxide 17 L (21-33) mmol/L Anion Gap 12 (10-20) BUN 101 H (7-21) mg/dL Creatinine 4.8 H (0.5-1.4) mg/dL Est GFR ( Amer) 14 Est GFR (Non-Af Amer) 12 POC Glucose (mg/dL) 152 H 169 H (65-110) mg/dL Random Glucose 145 H (70-110) mg/dL Calcium 6.8 L* (8.4-10.5) mg/dL Phosphorus 5.0 H (2.5-4.5) mg/dL Magnesium 2.1 (1.7-2.2) mg/dL Total Bilirubin 0.6 (0.2-1.3) mg/dL Direct Bilirubin 0.6 H (0.0-0.4) mg/dL AST 61 H (15-59) U/L ALT 72 H (7-56) U/L Alkaline Phosphatase 58 (38-133) U/L Lactate Dehydrogenase 1711 H (333-699) U/L Total Creatine Kinase 146 (35-230) U/L Troponin I 46.00 H* D ng/mL Total Protein 4.1 L (5.8-8.3) g/dL Albumin 1.8 L (3.0-4.8) g/dL Globulin 2.3 gm/dL Albumin/Globulin Ratio 0.8 L (1.1-1.8) Random Vancomycin (20.0-40.0) ug/mL Proteinase 3 (PR3) (<1.0) AI Myeloperoxidase Ab (<1.0) AI Mycoplasma pneumon IgM (<770) U/mL Parvovirus B19 IgM Ab (<0.9) 08/28/16 08/27/16 08/27/16 Range/Units 11:32 10:31 09:45 WBC (4.5-11.0) 10^3/ul RBC (3.5-6.1) 10^6/uL Hgb (14.0-18.0) gm/dL Hct (42.0-52.0) % MCV (80.0-105.0) fL MCH (25.0-35.0) pg MCHC (31.0-37.0) g/dl RDW (11.5-14.5) % Plt Count (120.0-450.0) 10^3/uL MPV (7.0-11.0) fl Gran % (50.0-68.0) % Lymph % (Auto) (22.0-35.0) % Ford % (Auto) (1.0-6.0) % Eos % (Auto) (1.5-5.0) % Baso % (Auto) (0.0-3.0) % Gran # (1.4-6.5) Lymph # (1.2-3.4) Ford # (0.1-0.6) Eos # (0.0-0.7) Baso # (0.0-2.0) K/mm3 Neutrophils % (Manual) (50.0-70.0) % Lymphocytes % (Manual) (22.0-35.0) % Monocytes % (Manual) (1.0-6.0) % Platelet Evaluation (NORMAL) Anisocytosis (manual) Retic Count (0.5-1.5) % Haptoglobin 158 (43-212) mg/dL PT (9.9-11.8) Seconds INR (0.93-1.08) APTT (23.7-30.8) Seconds Fibrinogen (187-400) mg/dL pCO2 (35-45) mm/Hg pO2 (80-100) mm/Hg HCO3 (21-28) mmol/L ABG pH (7.35-7.45) ABG Total CO2 (22-28) mmol.L ABG O2 Saturation (95-98) % ABG O2 Content (15-23) ML/dl ABG Base Excess (-2.0-3.0) mmol/L ABG Hemoglobin (11.7-17.4) g/dL ABG Carboxyhemoglobin (0.5-1.5) % POC ABG HHb (Measured) (0-5) % ABG Methemoglobin (0.0-3.0) % ABG O2 Capacity (16-24) mL/dl Hgb O2 Saturation (95.0-98.0) % FiO2 % Sodium (132-148) mmol/L Potassium (3.6-5.0) mmol/L Chloride (98-107) mmol/L Carbon Dioxide (21-33) mmol/L Anion Gap (10-20) BUN (7-21) mg/dL Creatinine (0.5-1.4) mg/dL Est GFR ( Amer) Est GFR (Non-Af Amer) POC Glucose (mg/dL) 150 H (65-110) mg/dL Random Glucose (70-110) mg/dL Calcium (8.4-10.5) mg/dL Phosphorus (2.5-4.5) mg/dL Magnesium (1.7-2.2) mg/dL Total Bilirubin (0.2-1.3) mg/dL Direct Bilirubin (0.0-0.4) mg/dL AST (15-59) U/L ALT (7-56) U/L Alkaline Phosphatase (38-133) U/L Lactate Dehydrogenase (333-699) U/L Total Creatine Kinase (35-230) U/L Troponin I ng/mL Total Protein (5.8-8.3) g/dL Albumin (3.0-4.8) g/dL Globulin gm/dL Albumin/Globulin Ratio (1.1-1.8) Random Vancomycin (20.0-40.0) ug/mL Proteinase 3 (PR3) <1.0 (<1.0) AI Myeloperoxidase Ab <1.0 (<1.0) AI Mycoplasma pneumon IgM 44 (<770) U/mL Parvovirus B19 IgM Ab 0.1 (<0.9) Laboratory Results - last 24 hr 08/27/16 08/27/16 08/28/16 09:45 10:31 11:32 WBC RBC Hgb Hct MCV MCH MCHC RDW Plt Count MPV Gran % Lymph % (Auto) Ford % (Auto) Eos % (Auto) Baso % (Auto) Gran # Lymph # Ford # Eos # Baso # Neutrophils % (Manual) Lymphocytes % (Manual) Monocytes % (Manual) Platelet Evaluation Anisocytosis (manual) Retic Count Haptoglobin 158 PT INR APTT Fibrinogen pCO2 pO2 HCO3 ABG pH ABG Total CO2 ABG O2 Saturation ABG O2 Content ABG Base Excess ABG Hemoglobin ABG Carboxyhemoglobin POC ABG HHb (Measured) ABG Methemoglobin ABG O2 Capacity Hgb O2 Saturation FiO2 Sodium Potassium Chloride Carbon Dioxide Anion Gap BUN Creatinine Est GFR ( Amer) Est GFR (Non-Af Amer) POC Glucose (mg/dL) 150 H Random Glucose Calcium Phosphorus Magnesium Total Bilirubin Direct Bilirubin AST ALT Alkaline Phosphatase Lactate Dehydrogenase Total Creatine Kinase Troponin I Total Protein Albumin Globulin Albumin/Globulin Ratio Random Vancomycin Proteinase 3 (PR3) <1.0 Myeloperoxidase Ab <1.0 Mycoplasma pneumon IgM 44 Parvovirus B19 IgM Ab 0.1 08/28/16 08/28/16 08/28/16 15:57 18:31 21:43 WBC 25.3 H* D RBC 3.06 L Hgb 9.3 L Hct 26.9 L MCV 87.9 MCH 30.4 MCHC 34.6 RDW 16.1 H Plt Count 187 MPV 13.6 H Gran % 90.5 H Lymph % (Auto) 4.3 L Ford % (Auto) 5.1 Eos % (Auto) 0.1 L Baso % (Auto) 0.0 Gran # 22.92 H Lymph # 1.1 L Ford # 1.3 H Eos # 0.0 Baso # 0.01 Neutrophils % (Manual) Lymphocytes % (Manual) Monocytes % (Manual) Platelet Evaluation Anisocytosis (manual) Retic Count 1.88 H Haptoglobin PT 13.2 H INR 1.22 H APTT 35.0 H Fibrinogen 402.2 H pCO2 pO2 HCO3 ABG pH ABG Total CO2 ABG O2 Saturation ABG O2 Content ABG Base Excess ABG Hemoglobin ABG Carboxyhemoglobin POC ABG HHb (Measured) ABG Methemoglobin ABG O2 Capacity Hgb O2 Saturation FiO2 Sodium 137 Potassium 4.0 Chloride 112 H Carbon Dioxide 17 L Anion Gap 12 BUN 101 H Creatinine 4.8 H Est GFR ( Amer) 14 Est GFR (Non-Af Amer) 12 POC Glucose (mg/dL) 169 H 152 H Random Glucose 145 H Calcium 6.8 L* Phosphorus 5.0 H Magnesium 2.1 Total Bilirubin 0.6 Direct Bilirubin 0.6 H AST 61 H ALT 72 H Alkaline Phosphatase 58 Lactate Dehydrogenase 1711 H Total Creatine Kinase 146 Troponin I 46.00 H* D Total Protein 4.1 L Albumin 1.8 L Globulin 2.3 Albumin/Globulin Ratio 0.8 L Random Vancomycin Proteinase 3 (PR3) Myeloperoxidase Ab Mycoplasma pneumon IgM Parvovirus B19 IgM Ab 08/28/16 08/29/16 08/29/16 22:35 01:00 06:00 WBC 21.9 H 21.5 H RBC 2.92 L 3.08 L Hgb 8.9 L 9.2 L Hct 25.6 L 26.8 L MCV 87.7 87.0 MCH 30.5 29.9 MCHC 34.8 34.3 RDW 16.2 H 16.3 H Plt Count 170 175 MPV 14.2 H Gran % 89.3 H Lymph % (Auto) 5.2 L Ford % (Auto) 5.3 Eos % (Auto) 0.2 L Baso % (Auto) 0.0 Gran # 19.58 H Lymph # 1.1 L Ford # 1.2 H Eos # 0.0 Baso # 0.01 Neutrophils % (Manual) 91 H Lymphocytes % (Manual) 4 L Monocytes % (Manual) 5 Platelet Evaluation Normal Anisocytosis (manual) 1+ Retic Count Haptoglobin PT 13.0 H INR 1.20 H APTT 34.8 H Fibrinogen pCO2 27 L pO2 67.0 L HCO3 14.2 L ABG pH 7.33 L ABG Total CO2 15.0 L ABG O2 Saturation 95.9 ABG O2 Content 11.0 L ABG Base Excess -10.6 L ABG Hemoglobin 8.3 L ABG Carboxyhemoglobin 1.5 POC ABG HHb (Measured) 4.0 ABG Methemoglobin 0.7 ABG O2 Capacity 11.5 L Hgb O2 Saturation 93.8 L FiO2 60.0 Sodium 137 Potassium 3.8 Chloride 112 H Carbon Dioxide 20 L Anion Gap 9 L BUN 98 H Creatinine 4.9 H Est GFR ( Amer) 14 Est GFR (Non-Af Amer) 11 POC Glucose (mg/dL) Random Glucose 126 H Calcium 6.8 L* Phosphorus 4.8 H Magnesium 2.0 Total Bilirubin 0.5 Direct Bilirubin AST 52 ALT 62 H Alkaline Phosphatase 57 Lactate Dehydrogenase 1589 H Total Creatine Kinase 109 Troponin I 35.80 H* D Total Protein 4.1 L Albumin 1.7 L Globulin 2.4 Albumin/Globulin Ratio 0.7 L Random Vancomycin Proteinase 3 (PR3) Myeloperoxidase Ab Mycoplasma pneumon IgM Parvovirus B19 IgM Ab 08/29/16 08/29/16 08/29/16 07:00 08:04 11:50 WBC 22.4 H RBC 3.02 L Hgb 9.2 L Hct 26.7 L MCV 88.4 MCH 30.5 MCHC 34.5 RDW 16.5 H Plt Count 194 MPV 13.7 H Gran % 90.1 H Lymph % (Auto) 4.2 L Ford % (Auto) 5.2 Eos % (Auto) 0.4 L Baso % (Auto) 0.1 Gran # 20.14 H Lymph # 0.9 L Ford # 1.2 H Eos # 0.1 Baso # 0.02 Neutrophils % (Manual) Lymphocytes % (Manual) Monocytes % (Manual) Platelet Evaluation Anisocytosis (manual) Retic Count Haptoglobin PT 12.7 H INR 1.18 H APTT 34.8 H Fibrinogen pCO2 pO2 HCO3 ABG pH ABG Total CO2 ABG O2 Saturation ABG O2 Content ABG Base Excess ABG Hemoglobin ABG Carboxyhemoglobin POC ABG HHb (Measured) ABG Methemoglobin ABG O2 Capacity Hgb O2 Saturation FiO2 Sodium 141 Potassium 3.8 Chloride 115 H Carbon Dioxide 18 L Anion Gap 12 BUN 96 H Creatinine 4.8 H Est GFR ( Amer) 14 Est GFR (Non-Af Amer) 12 POC Glucose (mg/dL) 129 H 119 H Random Glucose 110 Calcium 6.8 L* Phosphorus 4.8 H Magnesium 2.0 Total Bilirubin 0.6 Direct Bilirubin AST 44 ALT 62 H Alkaline Phosphatase 57 Lactate Dehydrogenase 1450 H Total Creatine Kinase 97 Troponin I 30.10 H* Total Protein 4.2 L Albumin 1.7 L Globulin 2.4 Albumin/Globulin Ratio 0.7 L Random Vancomycin 11.4 L Proteinase 3 (PR3) Myeloperoxidase Ab Mycoplasma pneumon IgM Parvovirus B19 IgM Ab EKG/Cardiology Studies: Cardiology / EKG Studies 08/29/16 12:09 EKG [ELECTROCARDIOGRAM] Stat Comment: Reason For Exam: rhythm change- apcs Does Patient Have a Pacemaker?: No Attending/Attestation - Attestation I have personally seen and examined this patient.: Yes I have fully participated in the care of the patient.: Yes I have reviewed all pertinent clinical information: Yes Notes (Text): 08/29/16 13:36 81 y/o M w/ MODS In the setting of new NSTEMI and GI bleed . ECHo done shows Regional Wall motion abnormalities CKD stage 4 w/ adequate urine out put CXR - diffuse pulmonary edema w/ hypoxia on Vent. GI bleed stable post EGD. HGB stable Troponin trendind down/ w/ new depressed EF%. Now on asprin and Plavix. Can try to optimize the patient for extubation. Will try to diurese the patient w/ Lasix as long as the patient's BP can tolerate. If able will try a BT PS Trial. Patient maybe a good candidate for Inotrope support w/ Dobutamine or Milrinone . D/W cardiology CKD, may need HD in the near future .Nephrology aware . Need a family meeting to discuss goals of care for the near future. cc time 65 min
[2016-08-29 07:48] LABS: ALB/GLOB RATIO 0.7 (1.1-1.8); BILIRUBIN,TOTAL 0.6 mg/dL (0.2-1.3); PHOSPHOROUS 4.8 mg/dL (2.5-4.5); POTASSIUM 3.8 mmol/L (3.6-5.0); TOTAL PROTEIN 4.2 g/dL (5.8-8.3)
[2016-08-29] MEDS: Arformoterol 15 mcg/2 ml Inh Sol IH SCH ×2 (07:49→19:23)
[2016-08-29] MEDS: Budesonide 0.5 mg/2 ml Inhal Susp UD IH SCH ×2 (07:49→19:22)
[2016-08-29 07:51] LABS: CALCIUM 6.8 mg/dL (8.4-10.5); TROPONIN I 30.1 ng/mL
[2016-08-29] MEDS: Insulin Lispro (humaLOG) LOW Coverage SC SCH ×4 (08:24→22:00)
--- NOTE | 2016-08-29 09:23 | RAD ---
HISTORY: assess Right IJ central line placement COMPARISON: Earlier same day FINDINGS: LUNGS: No change in bilateral infiltrates. Right IJ line in the SVC with no pneumothorax PLEURA: No significant pleural effusion identified, no pneumothorax apparent. CARDIOVASCULAR: Normal. OSSEOUS STRUCTURES: No significant abnormalities. VISUALIZED UPPER ABDOMEN: Normal. OTHER FINDINGS: Endotracheal and nasogastric tube in satisfactory position IMPRESSION: Right IJ line in SVC with no pneumothorax
--- NOTE | 2016-08-29 10:08 | RAD ---
HISTORY: res. fail COMPARISON: 08/28/2016 FINDINGS: The endotracheal tube terminates 3.7 cm proximal to the jose. The right IJV line terminates in the SVC. The nasogastric tube terminates in the stomach. LUNGS: There is no significant interval change in bilateral perihilar airspace disease and pulmonary redistribution with venous congestion. PLEURA: There are worsening pleural effusions. No pneumothorax. CARDIOVASCULAR: Normal. OSSEOUS STRUCTURES: No significant abnormalities. VISUALIZED UPPER ABDOMEN: Normal. OTHER FINDINGS: None. IMPRESSION: Stable position of line and tubes. Persistent perihilar pulmonary edema versus pneumonia. Worsening pleural effusions.
[2016-08-29] MEDS: Vancomycin 25 MG/ML PO SCH (11:12)
[2016-08-29] MEDS: Dexmedetomidine HCl 4mcg/ml 100 ML IV PRN ×4 (11:13→23:22)
--- NOTE | 2016-08-29 13:04 | CARD ---
APPROVED REPORT EKG Measurement Heart [id number] <Conclusion> Atrial fibrillation Low voltage QRS Cannot rule out Inferior infarct, age undetermined Prolonged QT Abnormal ECG
--- NOTE | 2016-08-29 14:14 | CON ---
DATE: 08/29/2016 HISTORY OF PRESENT ILLNESS: The patient is an 81-year-old male who presents with unresponsiveness an d a GI bleed. The patient was found to be in respiratory distress 2 days ago which required intubation. His hospital course has been [place] with episodes of hypotension and respiratory failure. In addition, he has had a GI bleed acutely. PAST MEDICAL HISTORY: Includes renal insufficiency, diabetes mellitus, history of PTCA and stent of a circumflex artery, and with carotid endarterectomy. SOCIAL HISTORY AND REVIEW OF SYSTEMS: Unavailable. PHYSICAL EXAMINATION: GENERAL: The patient is sedated and intubated. VITAL SIGNS: Blood pressure is 115/56, heart rate in the 90s with new onset atrial fibrillation. NECK: Negative JVD. LUNGS: Rales in left base. HEART: Reveals S1, S2. EXTREMITIES: Without edema. EKG is new onset atrial fibrillation today with nonspecific ST-T changes. LABORATORIES: The troponins are elevated, but on a descending trend down to 30. BUN and creatinine are 96 and 4.8. Glucose is 129. The potassium is 3.8. The hemoglobin is 9.2 with a white count of 22,000. Echocardiogram reveals a decrease in his ejection fraction down to 35%. IMPRESSION: 1. Respiratory failure. 2. Acute systolic congestive heart failure. 3. Deterioration in his left ventricular function from 50 to 35%. 4. Gastrointestinal bleed. 5. New onset atrial fibrillation. 6. History of percutaneous transluminal coronary angioplasty and stent of the circumflex artery. 7. Renal failure. 8. Diabetes mellitus. Given these findings, the patient was restarted on Plavix today after being cleared by GI, despite hi s recent GI bleed. Will need to follow up his hemoglobin carefully. In addition, I agree with giving Lasix for his CHF. His troponins with resultant decrease in LV function will need to be treated medically at this time. Will add beta-blockers to his regimen to help control his heart rate as well as to treat his non-KENNY PA. Bashir Samson MD cc: [id number] TT: 08/29/2016 14:13:07 Confirmation # [id number] Dictation # [id number]
[2016-08-29 15:07] LABS: BASO # 0.01 [, K/mm3] (0.0-2.0); EOS # 0.1 (0.0-0.7); EOS % 0.4 % (1.5-5.0); GRAN # 23.05 (1.4-6.5); GRAN % 91.2 % (50.0-68.0); HEMATOCRIT 27.4 % (42.0-52.0); LYMPH % 3.8 % (22.0-35.0); MEAN CELL VOLUME 89.8 fL (80.0-105.0); MEAN CORPUSCULAR HEMOGLOBIN 30.5 pg (25.0-35.0); MEAN CORPUSCULAR HGB CONC 33.9 g/dl (31.0-37.0); MEAN PLATELET VOLUME 13.9 fl (7.0-11.0); MONO # 1.2 (0.1-0.6); MONO % 4.6 % (1.0-6.0); PLATELET COUNT 208 [, 10^3/uL] (120.0-450.0); RED CELL DISTRIBUTION WIDTH 16.4 % (11.5-14.5)
--- NOTE | 2016-08-29 15:07 | CP.PCM.CON ---
History of Present Illness - History of Present Illness History of Present Illness: Palliative consult requested by Dr Maryam Myers Reason Goals of care 81 year old male found lying on the floor also noted to have rectal bleeding by son. Patient was alert upon arrival to ED and stated that he had become weak the night before. The patient was admitted with acute GI bleed. He subsequently developed respiratory failure requiring intubation. He has aslo developed ALLYSON. His EF is 35%. Elevated troponins indicate Non- Stemi. He has new onset atrial fibrillation. PMHx: R MCA, left sided weakness, PVD,CAD, PTCA with stent of circumflex artery , carotid endarterectomy, ITP, gait dysfunction,DM, renal insufficiency Social History:Ex smoker, social alcohol, no illicit drug use Family History: Non contributory. Advance Care Planning: The patient does not have an Advanced Directive. Patient' s son CHARLOTTE Zheng is POA [phone]. Review of systems: Unable to obtain, patient is intubated Past Patient History - Infectious Disease Hx of Infectious Diseases: None - Past Medical History & Family History Past Medical History?: Yes - Past Social History Smoking Status: Former Smoker - CARDIAC Hx Hypertension: Yes - PULMONARY Hx Respiratory Disorders: Yes (SMOKED CIGARETTES PPD. QUIT 20 YRS AGO.) Hx Pneumonia: Yes - NEUROLOGICAL HX Cerebrovascular Accident: Yes (recent, with L sided weakness) - HEENT Hx HEENT Problems: Yes Hx Cataracts: Yes (BILATERAL CATARACT SURGERY) - RENAL Hx Chronic Kidney Disease: No - ENDOCRINE/METABOLIC Hx Diabetes Mellitus Type 1: Yes - HEMATOLOGICAL/ONCOLOGICAL Hx Blood Transfusions: Yes Hx Blood Transfusion Reaction: No - INTEGUMENTARY Hx Dermatological Problems: Yes (LEFT LEG EDEMA +3 PITTING,MOTTLED,SCARRED) - MUSCULOSKELETAL/RHEUMATOLOGICAL Hx Falls: Yes - GASTROINTESTINAL Hx Gastrointestinal Disorders: No - GENITOURINARY/GYNECOLOGICAL Other/Comment: BPH - PSYCHIATRIC Hx Substance Use: No - SURGICAL HISTORY Hx Surgeries: (UNKNOWN) - ANESTHESIA Hx Anesthesia Reactions: (UNKNOWN) Hx Malignant Hyperthermia: (UNKNOWN) Meds Allergies/Adverse Reactions: Allergies Allergy/AdvReac Type Severity Reaction Status Date / Time No Known Allergies Allergy Verified 08/26/16 14:47 - Medications Medications: Current Medications Acetaminophen (Tylenol 650 Mg Supp) 650 mg RC Q4H PRN PRN Reason: Fever >100.4 F Arformoterol Tartrate (Brovana) 15 mcg IH [id number] [facility] Last Admin: 08/29/16 07:49 Dose: 15 mcg Aspirin (Ecotrin) 81 mg PO DAILY [facility] Last Admin: 08/29/16 11:12 Dose: 81 mg Budesonide (Pulmicort Respules) 0.5 mg IH [id number] [facility] Last Admin: 08/29/16 07:49 Dose: 0.5 mg Clopidogrel Bisulfate (Plavix) 75 mg NG DAILY [facility] Last Admin: 08/29/16 11:12 Dose: 75 mg Furosemide (Lasix) 40 mg IVP Q12 [facility] Last Admin: 08/29/16 12:17 Dose: Not Given Metronidazole (Flagyl) 100 mls @ 100 mls/hr IVPB Q8 [facility] PRN Reason: Protocol Last Admin: 08/29/16 06:19 Dose: 100 mls/hr Doxycycline Hyclate 100 mg/ (Sodium Chloride) 100 mls @ 100 mls/hr IVPB Q12 [facility] PRN Reason: Protocol Stop: 09/10/16 10:01 Last Admin: 08/29/16 11:13 Dose: 100 mls/hr Dexmedetomidine HCl (Precedex 4 Mcg/Ml (100 Ml)) 100 mls @ 3.59 mls/hr IV .Q24H PRN; Protocol; 0.2 MCG/KG/HR PRN Reason: Agitation Last Titration: 08/29/16 11:57 Dose: 1.2 mcg/kg/hr Insulin Human Lispro (Humalog Low) 0 units SC ACHS [facility] PRN Reason: Protocol Last Admin: 08/29/16 12:16 Dose: Not Given Metoprolol Tartrate (Lopressor) 5 mg IVP Q6H [facility] Pantoprazole Sodium (Protonix Inj) 40 mg IVP Q12 [facility] Last Admin: 08/29/16 11:12 Dose: 40 mg Physical Exam - Constitutional Appears: No Acute Distress, Chronically Ill - Head Exam Head Exam: NORMAL INSPECTION - Eye Exam Eye Exam: Normal appearance, PERRL - ENT Exam ENT Exam: Mucous Membranes Moist - Neck Exam Neck exam: Positive for: Normal Inspection - Respiratory Exam Respiratory Exam: Decreased Breath Sounds, Rales, NORMAL BREATHING PATTERN - Cardiovascular Exam Cardiovascular Exam: Irregular Rhythm, +S1, +S2 - GI/Abdominal Exam GI & Abdominal Exam: Distended, Normal Bowel Sounds, Soft - Extremities Exam Extremities exam: Positive for: pedal pulses present Additional comments: LLE edema - Back Exam Back exam: NORMAL INSPECTION - Neurological Exam Neurological exam: Altered - Additional Findings Additional findings: Palliative performance scale rating 10 % Results - Vital Signs Recent Vital Signs: Last Vital Signs Temp 98 F 08/29/16 14:04 Pulse 82 08/29/16 14:06 Resp 24 08/29/16 14:04 BP 110/69 08/29/16 14:04 Pulse Ox 100 08/29/16 14:04 - Labs Result Diagrams: 08/29/16 07:00 08/29/16 07:00 Labs: Laboratory Results - last 24 hr 08/27/16 08/27/16 08/28/16 09:45 10:31 11:32 WBC RBC Hgb Hct MCV MCH MCHC RDW Plt Count MPV Gran % Lymph % (Auto) [place] % (Auto) Eos % (Auto) Baso % (Auto) Gran # Lymph # [place] # Eos # Baso # Neutrophils % (Manual) Lymphocytes % (Manual) Monocytes % (Manual) Platelet Evaluation Anisocytosis (manual) Retic Count Haptoglobin 158 PT INR APTT Fibrinogen pCO2 pO2 HCO3 ABG pH ABG Total CO2 ABG O2 Saturation ABG O2 Content ABG Base Excess ABG Hemoglobin ABG Carboxyhemoglobin POC ABG HHb (Measured) ABG Methemoglobin ABG O2 Capacity Hgb O2 Saturation FiO2 Sodium Potassium Chloride Carbon Dioxide Anion Gap BUN Creatinine Est GFR ( Amer) Est GFR (Non-Af Amer) POC Glucose (mg/dL) 150 H Random Glucose Calcium Phosphorus Magnesium Total Bilirubin Direct Bilirubin AST ALT Alkaline Phosphatase Lactate Dehydrogenase Total Creatine Kinase Troponin I Total Protein Albumin Globulin Albumin/Globulin Ratio Random Vancomycin Proteinase 3 (PR3) <1.0 Myeloperoxidase Ab <1.0 Mycoplasma pneumon IgM 44 Parvovirus B19 IgM Ab 0.1 08/28/16 08/28/16 08/28/16 15:57 18:31 21:43 WBC 25.3 H* D RBC 3.06 L Hgb 9.3 L Hct 26.9 L MCV 87.9 MCH 30.4 MCHC 34.6 RDW 16.1 H Plt Count 187 MPV 13.6 H Gran % 90.5 H Lymph % (Auto) 4.3 L [place] % (Auto) 5.1 Eos % (Auto) 0.1 L Baso % (Auto) 0.0 Gran # 22.92 H Lymph # 1.1 L [place] # 1.3 H Eos # 0.0 Baso # 0.01 Neutrophils % (Manual) Lymphocytes % (Manual) Monocytes % (Manual) Platelet Evaluation Anisocytosis (manual) Retic Count 1.88 H Haptoglobin PT 13.2 H INR 1.22 H APTT 35.0 H Fibrinogen 402.2 H pCO2 pO2 HCO3 ABG pH ABG Total CO2 ABG O2 Saturation ABG O2 Content ABG Base Excess ABG Hemoglobin ABG Carboxyhemoglobin POC ABG HHb (Measured) ABG Methemoglobin ABG O2 Capacity Hgb O2 Saturation FiO2 Sodium 137 Potassium 4.0 Chloride 112 H Carbon Dioxide 17 L Anion Gap 12 BUN 101 H Creatinine 4.8 H Est GFR ( Amer) 14 Est GFR (Non-Af Amer) 12 POC Glucose (mg/dL) 169 H 152 H Random Glucose 145 H Calcium 6.8 L* Phosphorus 5.0 H Magnesium 2.1 Total Bilirubin 0.6 Direct Bilirubin 0.6 H AST 61 H ALT 72 H Alkaline Phosphatase 58 Lactate Dehydrogenase 1711 H Total Creatine Kinase 146 Troponin I 46.00 H* D Total Protein 4.1 L Albumin 1.8 L Globulin 2.3 Albumin/Globulin Ratio 0.8 L Random Vancomycin Proteinase 3 (PR3) Myeloperoxidase Ab Mycoplasma pneumon IgM Parvovirus B19 IgM Ab 08/28/16 08/29/16 08/29/16 22:35 01:00 06:00 WBC 21.9 H 21.5 H RBC 2.92 L 3.08 L Hgb 8.9 L 9.2 L Hct 25.6 L 26.8 L MCV 87.7 87.0 MCH 30.5 29.9 MCHC 34.8 34.3 RDW 16.2 H 16.3 H Plt Count 170 175 MPV 14.2 H Gran % 89.3 H Lymph % (Auto) 5.2 L [place] % (Auto) 5.3 Eos % (Auto) 0.2 L Baso % (Auto) 0.0 Gran # 19.58 H Lymph # 1.1 L [place] # 1.2 H Eos # 0.0 Baso # 0.01 Neutrophils % (Manual) 91 H Lymphocytes % (Manual) 4 L Monocytes % (Manual) 5 Platelet Evaluation Normal Anisocytosis (manual) 1+ Retic Count Haptoglobin PT 13.0 H INR 1.20 H APTT 34.8 H Fibrinogen pCO2 27 L pO2 67.0 L HCO3 14.2 L ABG pH 7.33 L ABG Total CO2 15.0 L ABG O2 Saturation 95.9 ABG O2 Content 11.0 L ABG Base Excess -10.6 L ABG Hemoglobin 8.3 L ABG Carboxyhemoglobin 1.5 POC ABG HHb (Measured) 4.0 ABG Methemoglobin 0.7 ABG O2 Capacity 11.5 L Hgb O2 Saturation 93.8 L FiO2 60.0 Sodium 137 Potassium 3.8 Chloride 112 H Carbon Dioxide 20 L Anion Gap 9 L BUN 98 H Creatinine 4.9 H Est GFR ( Amer) 14 Est GFR (Non-Af Amer) 11 POC Glucose (mg/dL) Random Glucose 126 H Calcium 6.8 L* Phosphorus 4.8 H Magnesium 2.0 Total Bilirubin 0.5 Direct Bilirubin AST 52 ALT 62 H Alkaline Phosphatase 57 Lactate Dehydrogenase 1589 H Total Creatine Kinase 109 Troponin I 35.80 H* D Total Protein 4.1 L Albumin 1.7 L Globulin 2.4 Albumin/Globulin Ratio 0.7 L Random Vancomycin Proteinase 3 (PR3) Myeloperoxidase Ab Mycoplasma pneumon IgM Parvovirus B19 IgM Ab 08/29/16 08/29/16 08/29/16 07:00 08:04 11:50 WBC 22.4 H RBC 3.02 L Hgb 9.2 L Hct 26.7 L MCV 88.4 MCH 30.5 MCHC 34.5 RDW 16.5 H Plt Count 194 MPV 13.7 H Gran % 90.1 H Lymph % (Auto) 4.2 L [place] % (Auto) 5.2 Eos % (Auto) 0.4 L Baso % (Auto) 0.1 Gran # 20.14 H Lymph # 0.9 L [place] # 1.2 H Eos # 0.1 Baso # 0.02 Neutrophils % (Manual) Lymphocytes % (Manual) Monocytes % (Manual) Platelet Evaluation Anisocytosis (manual) Retic Count Haptoglobin PT 12.7 H INR 1.18 H APTT 34.8 H Fibrinogen pCO2 pO2 HCO3 ABG pH ABG Total CO2 ABG O2 Saturation ABG O2 Content ABG Base Excess ABG Hemoglobin ABG Carboxyhemoglobin POC ABG HHb (Measured) ABG Methemoglobin ABG O2 Capacity Hgb O2 Saturation FiO2 Sodium 141 Potassium 3.8 Chloride 115 H Carbon Dioxide 18 L Anion Gap 12 BUN 96 H Creatinine 4.8 H Est GFR ( Amer) 14 Est GFR (Non-Af Amer) 12 POC Glucose (mg/dL) 129 H 119 H Random Glucose 110 Calcium 6.8 L* Phosphorus 4.8 H Magnesium 2.0 Total Bilirubin 0.6 Direct Bilirubin AST 44 ALT 62 H Alkaline Phosphatase 57 Lactate Dehydrogenase 1450 H Total Creatine Kinase 97 Troponin I 30.10 H* Total Protein 4.2 L Albumin 1.7 L Globulin 2.4 Albumin/Globulin Ratio 0.7 L Random Vancomycin 11.4 L Proteinase 3 (PR3) Myeloperoxidase Ab Mycoplasma pneumon IgM Parvovirus B19 IgM Ab Assessment & Plan - Assessment and Plan (Free Text) Assessment: 81 year old male admitted with acute GI bleed, respiratory failure, hypotension, Non Stemi, ALLYSON, EF 35%. Patients son Il at bedside. Son updated of patients condition. Son is agreeable to trying temporary dialysis. Son willing to wait a few more days to see if father's condition stabilizes. He wants his father to remain a full code until he can speak with his older brother/ family. Il indicated that his older brother and father had been estranged and that he hopeful his brother will visit. Il made aware that despite medical interventions his father 's condition may not improve. I explained the possibility of permanent tracheostomy, PEG, dialysis. Son states he understands and that if this is the case, he is open to discuss other options for care. Time spent in discussion with patients son regarding goals of care, advance care planning, 30 minutes.r Plan: Continue current medical management. Will assist with establishing future goals of care
[2016-08-29 15:10] LABS: ADD MANUAL DIFF? NO; WHITE BLOOD COUNT 25.3 [, 10^3/ul] (4.5-11.0)
--- NOTE | 2016-08-29 15:11 | CP.PCM.PN ---
Subjective - Date & Time of Evaluation Date of Evaluation: 08/29/16 Time of Evaluation: 08:40 - Subjective Subjective: Patient continues to be on the ventilator, sedated, no fevers overnight. Objective - Vital Signs/Intake and Output Vital Signs (last 24 hours): Temp Pulse Resp BP Pulse Ox 98 F 82 24 110/69 100 08/29/16 14:04 08/29/16 14:06 08/29/16 14:04 08/29/16 14:04 08/29/16 14:04 Intake and Output: 08/29/16 08/29/16 06:59 18:59 Intake Total 1115 Output Total 425 Balance 690 - Medications Medications: Current Medications Acetaminophen (Tylenol 650 Mg Supp) 650 mg RC Q4H PRN PRN Reason: Fever >100.4 F Arformoterol Tartrate (Brovana) 15 mcg IH [id number] [facility] Last Admin: 08/29/16 07:49 Dose: 15 mcg Aspirin (Ecotrin) 81 mg PO DAILY [facility] Last Admin: 08/29/16 11:12 Dose: 81 mg Budesonide (Pulmicort Respules) 0.5 mg IH [id number] [facility] Last Admin: 08/29/16 07:49 Dose: 0.5 mg Clopidogrel Bisulfate (Plavix) 75 mg NG DAILY [facility] Last Admin: 08/29/16 11:12 Dose: 75 mg Furosemide (Lasix) 40 mg IVP Q12 [facility] Last Admin: 08/29/16 12:17 Dose: Not Given Metronidazole (Flagyl) 100 mls @ 100 mls/hr IVPB Q8 [facility] PRN Reason: Protocol Last Admin: 08/29/16 06:19 Dose: 100 mls/hr Doxycycline Hyclate 100 mg/ (Sodium Chloride) 100 mls @ 100 mls/hr IVPB Q12 [facility] PRN Reason: Protocol Stop: 09/10/16 10:01 Last Admin: 08/29/16 11:13 Dose: 100 mls/hr Dexmedetomidine HCl (Precedex 4 Mcg/Ml (100 Ml)) 100 mls @ 3.59 mls/hr IV .Q24H PRN; Protocol; 0.2 MCG/KG/HR PRN Reason: Agitation Last Titration: 08/29/16 11:57 Dose: 1.2 mcg/kg/hr Cefepime HCl (Maxipime 1gm) 100 mls @ 100 mls/hr IVPB Q24H [facility] PRN Reason: Protocol Stop: 09/05/16 15:16 Insulin Human Lispro (Humalog Low) 0 units SC ACHS [facility] PRN Reason: Protocol Last Admin: 08/29/16 12:16 Dose: Not Given Metoprolol Tartrate (Lopressor) 5 mg IVP Q6H [facility] Pantoprazole Sodium (Protonix Inj) 40 mg IVP Q12 [facility] Last Admin: 08/29/16 11:12 Dose: 40 mg - Labs Labs: 08/29/16 07:00 08/29/16 07:00 PT 12.7 Seconds (9.9-11.8) H 08/29/16 07:00 INR 1.18 (0.93-1.08) H 08/29/16 07:00 APTT 34.8 Seconds (23.7-30.8) H 08/29/16 07:00 - Constitutional Appears: Other (Intubated and sedated) - ENT Exam ENT Exam: Mucous Membranes Moist Additional comments: ET tube in place - Neck Exam Neck Exam: absent: Lymphadenopathy, Meningismus - Respiratory Exam Respiratory Exam: Decreased Breath Sounds - Cardiovascular Exam Cardiovascular Exam: +S1, +S2 - GI/Abdominal Exam GI & Abdominal Exam: Soft. absent: Tenderness Assessment and Plan - Assessment and Plan (Free Text) Plan: Assessment Severe sepsis with hypoxic and ventilator-dependent respiratory failure probably secondary to community-acquired pneumonia R/O aspiration pneumonitis in a patient with acute on chronic renal failure and lactic acidosis as well as possible non-ST elevation myocardial infarction Anemia R/O hemolysis Chronic renal failure history of cerebrovascular accident S/O left carotid endarterectomy history of immune-thrombocytopenic purpura BPH CAD Plan Continue Cefepime, Doxycycline and Flagyl pending final cx results (day 3); Patient given a dose of IV Vancomycin and Vanco random level today noted - blood cultures negative and MRSA nares negative - will d/c Vancomycin Follow up Babesia tests; Mycoplasma IgM negative; urine Legionella Ag is negative Will continue to follow clinically
[2016-08-29 15:18] LABS: INR 1.22 (0.93-1.08); PARTIAL THROMBOPLASTIN TIME 36.4 Seconds (23.7-30.8)
[2016-08-29 15:20] LABS: ALB/GLOB RATIO 0.8 (1.1-1.8); BILIRUBIN,TOTAL 0.6 mg/dL (0.2-1.3); PHOSPHOROUS 5.2 mg/dL (2.5-4.5); POTASSIUM 3.8 mmol/L (3.6-5.0); TOTAL PROTEIN 4.2 g/dL (5.8-8.3)
[2016-08-29 15:29] LABS: TROPONIN I 27.2 ng/mL
[2016-08-29] MEDS: Metoprolol 1 mg/ml Inj IVP SCH ×2 (15:40→20:03)
[2016-08-29] MEDS ORDERED: Propofol 10 mg/ml 50 ML IV PRN (15:55)
[2016-08-29] MEDS: Cefepime 1gm in NS 100ml 100 ML IVPB SCH (16:20)
[2016-08-29 17:48] LABS: ADD MANUAL DIFF? NO
[2016-08-29 17:51] LABS: BASO # 0.01 [, K/mm3] (0.0-2.0); EOS # 0.1 (0.0-0.7); EOS % 0.3 % (1.5-5.0); GRAN # 24.41 (1.4-6.5); GRAN % 91.3 % (50.0-68.0); HEMATOCRIT 28.3 % (42.0-52.0); LYMPH # 0.8 (1.2-3.4); LYMPH % 2.8 % (22.0-35.0); MEAN CELL VOLUME 89.3 fL (80.0-105.0); MEAN CORPUSCULAR HEMOGLOBIN 30.3 pg (25.0-35.0); MEAN CORPUSCULAR HGB CONC 33.9 g/dl (31.0-37.0); MONO # 1.5 (0.1-0.6); MONO % 5.6 % (1.0-6.0); PLATELET COUNT 232 [, 10^3/uL] (120.0-450.0); RED CELL DISTRIBUTION WIDTH 16.4 % (11.5-14.5)
[2016-08-29 18:02] LABS: ALB/GLOB RATIO 0.8 (1.1-1.8); BILIRUBIN,TOTAL 0.6 mg/dL (0.2-1.3); CALCIUM 7.1 mg/dL (8.4-10.5); PHOSPHOROUS 5.5 mg/dL (2.5-4.5); POTASSIUM 3.9 mmol/L (3.6-5.0); TOTAL PROTEIN 4.4 g/dL (5.8-8.3)
[2016-08-29 18:21] LABS: INR 1.18 (0.93-1.08); PARTIAL THROMBOPLASTIN TIME 35.5 Seconds (23.7-30.8)
[2016-08-29 18:22] LABS: TROPONIN I 29.7 ng/mL; WHITE BLOOD COUNT 26.8 [, 10^3/ul] (4.5-11.0)
--- NOTE | 2016-08-29 18:36 | PN ---
DATE: 08/29/2016 SUBJECTIVE: The patient is seen in the ICU. He remains on mechanical ventilation. He appears comfortable. He remains sedated. He is on ____ precedex_ and Diprivan. He is off IV fluids. He received 80 mg of Lasix earlier. PHYSICAL EXAMINATION: GENERAL: Elderly male lying in bed in the ICU, on mechanical ventilation. VITAL SIGNS: Blood pressure 110/69, heart rate 84, respiratory rate 24, temperature 98. HEENT: Normocephalic, atraumatic, no pallor. NECK: Supple, no JVD. LUNGS: Bilateral equal air entry, bilateral rhonchi, decreased breath sounds at bases? CARDIAC: S1, S2, regular rate and rhythm, no murmur, no rub. ABDOMEN: Obese, soft, nontender, bowel sounds present. EXTREMITIES: No lower extremity edema. INTAKE AND OUTPUT: 3510/725. LABORATORY DATA: WBC 25, hemoglobin 9, hematocrit 27, platelets 208. Sodium 140, potassium 3.8, chloride 114, CO2 18, BUN 95, creatinine 5.1, glucose 135, calcium 7.0, phosphorus 5.2, magnesium 2.0, AST 34, ALT 58. Uric acid level 11.4 , pH 7.3, pCO2 of 27, pO2 67 Cultures no growth so far. CURRENT MEDICATIONS: Brovana, Diprivan, doxycycline 100 q. 12, aspirin, Flagyl 500 q. 8, Lasix 40 IV q. 12, Lopressor, cefepime 1 gram daily, Plavix 75, Protonix, Pulmicort, Tylenol. ASSESSMENT: An 81-year-old male with history of evd-rhueaxc-ycoeopzlh diabetes mellitus, hypertension, coronary artery disease, cerebrovascular accident, left hemiparesis, percutaneous transluminal coronary angioplasty and stent, chronic kidney disease stage III, benign prostatic hypertrophy, peripheral vascular disease, carotid endarterectomy on the left side, admitted with gastrointestinal bleed, acute kidney injury, non-ST elevation myocardial infarction, respiratory failure, sepsis, currently with multiorgandysfunction. Cardiorenal syndrome. 1. Acute kidney injury superimposed on chronic kidney disease, stage III. 2. Resolved hyperkalemia. 3. Gastrointestinal bleed. 4. Respiratory failure. 5. Possible aspiration pneumonia. 6. Bilateral pleural effusions, congestive heart failure, coronary artery disease, cardiomyopathy. 7. Non-ST elevation myocardial infarction. PLAN: 1. Agree with discontinuation of IV fluids. 2. Agree with Lasix. 3. Consider ionotropic agents. 4. Continue antibiotics for possible sepsis and aspiration pneumonia. 5. Monitor H and H closely. 6. Case discussed at length with ICU team. In light of his worsening ejection fraction, worsening cardiomyopathy and cardiac catheterization being considered , will dialyze the patient if necessary. There is no indication for acute dialysis at this time, but if patient is going to receive contrast for cardiac catheterization he should have a dialysis catheter placed for dialysis pre- and post- at least temporarily. Case discussed with senior care provider and residents. Case discussed with nursing staff. More than 35 minutes were spent in the care of this critically ill patient. Aundrea Alcazar MD cc: [phone] TT: 08/29/2016 18:35:53 Confirmation # [id number] Dictation # [id number] isis LEVY
--- NOTE | 2016-08-29 21:45 | PN ---
DATE: 08/29/2016 REFERRING PHYSICIAN: Dr. Myers. SUBJECTIVE: He is intubated and sedated, arousable, follows simple commands. Precedex added with Di privan. Still has a moderate amount of ET tube secretions. No hemoptysis. No vomiting. No hematur ia. There was one episode of melena. No significant leg swelling. OBJECTIVE: GENERAL: On ventilator. VITAL SIGNS: Temperature is 98, heart rate is 68, respiratory rate is 30, blood pressure 128/61, pul se ox 95% on ventilator. HEENT: Moist mucous membrane. Crowded airway. NECK: Supple, no JVD. ET tube not much secretions. LUNGS: Has scattered rhonchi and crackles. HEART: S1, S2. ABDOMEN: Soft, nontender. No organomegaly. EXTREMITIES: There is trace edema. NEUROLOGIC: Awake, alert, does follow simple commands. MEDICATIONS: He is on Brovana 15 mcg inhaled twice a day, Diprivan IV, also doxycycline 100 mg twice a day, Ecotrin 81 mg daily, Flagyl 500 mg q. 8 hours, insulin coverage, Lasix 40 mg IV q. 12 hours, metoprolol tartrate 5 mg IV q. 6 hours, cefepime 1 g IV q. 24 hours, Plavix 75 mg daily, Precedex, IV Protonix 40 mg q. 12 hours, Pulmicort inhaled twice a day, Tylenol on a p.r.n. basis. LABORATORY DATA: Shows hemoglobin 9.6, hematocrit 28.3, WBC 27,000, platelet is 232. INR 1.18, PTT is 36. Blood gases shows pH 7.33, pCO2 of 27, O2 of 67, this is on 60% oxygen on ventilator, sodium 140, potassium 3.9, chloride 114, bicarbonate is 17, BUN 96, creatinine 5.0, glucose 146, calcium is 7.1, phosphorus 5.5, magnesium 2.0, total bilirubin 0.6, AST 34, ALT 55, alkaline phosphatase is 65. LDH is 1416. Troponin is 30. MICROBIOLOGY: Blood culture, nose culture, stool is unremarkable. Chest x-ray done today shows pers istent perihilar pulmonary edema. Pneumonia cannot be ruled out. Has bilateral pleural effusions. IMPRESSION AND PLAN: Hemorrhagic shock requiring multi-unit transfusions, has a gastric ulcer, [place] tt esophagus, may have a component of aspiration pneumonia, cardiomyopathy with pulmonary edema, hist ory of hypertension, coronary artery disease, history of coronary stent, improving metabolic acidosis , renal failure. Case discussed with nursing staff. Continue diuresis, keep on vent setting. Ana nue sedatives. I agree with Precedex use. Follow up ABG, chest x-ray, CBC, CMP in the morning. Card iac enzymes still high. We will order for tomorrow to see the trend. Critical care time spent, minutes. Shawn Ruff MD cc: [phone] TT: 08/29/2016 21:44:44 Confirmation # [id number] Dictation # [id number] jessica
--- NOTE | 2016-08-29 23:41 | PN ---
DATE: 08/29/2016 SUBJECTIVE: This patient was seen and evaluated earlier today. Discussed with the nursing staff. T he patient did have an episode of melena. The patient is back on aspirin and Plavix. The patient rae d an endoscopy done yesterday, showed gastric ulcers. The patient still remains intubated. PHYSICAL EXAMINATION: VITAL SIGNS: Temperature is 67, blood pressure is 125/62, pulse 68, respirations 18. HEENT: Atraumatic, anicteric. NECK: Supple. HEART: S1, S2 heard. LUNGS: Bilateral air entry present. ABDOMEN: Soft. No tenderness. EXTREMITIES: No edema. No cyanosis. LABORATORY DATA: WBC count is 26.8. Hemoglobin 9.6, hematocrit 28.3, platelets 232. Chemistry is B UN 96, creatinine 5.0. CPK is 1416. IMPRESSION: An 81-year-old patient admitted with gastrointestinal bleeding, change of mental status, sepsis. The patient is now intubated. Endoscopy yesterday showed 2 gastric ulcers, one is covered with a pigmented spot, the fundus upper body area. The patient also had another clean base ulcer in the prepyloric area. After a detailed discussion with weighing the pros and cons carefully, the chato ent was restarted on Plavix and aspirin in view of the significant MRI. The patient had PTCA and heidi nt placement before. The concern is in the setting of acute myocardial infarction could be a l dulce-threatening event. The risk of bleeding from the ulcers on anticoagulation also was carefully co nsidered. The patient is on high dose PPI. The plan is to continue closely the hemoglobin and hemat ocrit. If there is active bleeding, then we may have to discontinue the antiplatelet therapy. At th e moment, the patient did have melena which could be old blood. We will follow up the hemoglobin and hematocrit. Discussed with the staff at length. Eleonora Dillard MD cc: [phone] TT: 08/29/2016 23:40:54 Confirmation # [id number] Dictation # [id number] isis
--- NOTE | 2016-08-30 00:57 | CP.PCM.PN ---
Subjective - Date & Time of Evaluation Date of Evaluation: 08/29/16 Time of Evaluation: 19:15 - Subjective Subjective: Vented, appears comfortable Objective - Vital Signs/Intake and Output Vital Signs (last 24 hours): Temp Pulse Resp BP Pulse Ox 98.1 F 61 18 121/46 L 97 08/30/16 00:00 08/30/16 00:00 08/30/16 00:00 08/30/16 00:00 08/30/16 00:00 Intake and Output: 08/29/16 08/30/16 18:59 06:59 Intake Total 560 Output Total 600 Balance -40 - Medications Medications: Current Medications Acetaminophen (Tylenol 650 Mg Supp) 650 mg RC Q4H PRN PRN Reason: Fever >100.4 F Arformoterol Tartrate (Brovana) 15 mcg IH [id number] [facility] Last Admin: 08/29/16 19:23 Dose: 15 mcg Aspirin (Ecotrin) 81 mg PO DAILY [facility] Last Admin: 08/29/16 11:12 Dose: 81 mg Budesonide (Pulmicort Respules) 0.5 mg IH [id number] [facility] Last Admin: 08/29/16 19:22 Dose: 0.5 mg Clopidogrel Bisulfate (Plavix) 75 mg NG DAILY [facility] Last Admin: 08/29/16 11:12 Dose: 75 mg Furosemide (Lasix) 40 mg IVP Q12 [facility] Last Admin: 08/29/16 21:07 Dose: 40 mg Metronidazole (Flagyl) 100 mls @ 100 mls/hr IVPB Q8 [facility] PRN Reason: Protocol Last Admin: 08/29/16 21:08 Dose: 100 mls/hr Doxycycline Hyclate 100 mg/ (Sodium Chloride) 100 mls @ 100 mls/hr IVPB Q12 [facility] PRN Reason: Protocol Stop: 09/10/16 10:01 Last Admin: 08/29/16 21:07 Dose: 100 mls/hr Dexmedetomidine HCl (Precedex 4 Mcg/Ml (100 Ml)) 100 mls @ 3.59 mls/hr IV .Q24H PRN; Protocol; 0.2 MCG/KG/HR PRN Reason: Agitation Last Admin: 08/29/16 23:22 Dose: 17.951 mls/hr Cefepime HCl (Maxipime 1gm) 100 mls @ 100 mls/hr IVPB Q24H [facility] PRN Reason: Protocol Stop: 09/05/16 15:16 Last Admin: 08/29/16 16:20 Dose: 100 mls/hr Propofol (Diprivan) 100 mls @ 4.308 mls/hr IV .[id number] PRN; Protocol; 10 MCG/KG /MIN PRN Reason: TITRATE PER MD ORDER Last Titration: 08/29/16 21:05 Dose: 5 mcg/kg/min Insulin Human Lispro (Humalog Low) 0 units SC ACHS [facility] PRN Reason: Protocol Last Admin: 08/29/16 22:00 Dose: Not Given Metoprolol Tartrate (Lopressor) 5 mg IVP Q6H [facility] Last Admin: 08/29/16 20:03 Dose: Not Given Pantoprazole Sodium (Protonix Inj) 40 mg IVP Q12 [facility] Last Admin: 08/29/16 21:07 Dose: 40 mg - Labs Labs: 08/29/16 17:45 08/29/16 17:45 PT 12.7 Seconds (9.9-11.8) H 08/29/16 17:45 INR 1.18 (0.93-1.08) H 08/29/16 17:45 APTT 35.5 Seconds (23.7-30.8) H 08/29/16 17:45 - Head Exam Head Exam: ATRAUMATIC - Eye Exam Eye Exam: Normal appearance - ENT Exam ENT Exam: Mucous Membranes Dry - Respiratory Exam Respiratory Exam: NORMAL BREATHING PATTERN - Cardiovascular Exam Cardiovascular Exam: +S1, +S2 - GI/Abdominal Exam GI & Abdominal Exam: Normal Bowel Sounds - Extremities Exam Extremities Exam: Pedal Edema Assessment and Plan (1) Anemia Assessment & Plan: H/H stable on dual antiplatelet; single episode of melena today Gastric ulcers noted on EGD anemia of CKD Status: Acute (2) Leukocytosis Assessment & Plan: on antibiotics Status: Acute (3) ITP (idiopathic thrombocytopenic purpura) Assessment & Plan: on Promacta, now on hold for normal plt count Status: Acute
[2016-08-30 01:06] LABS: ADD MANUAL DIFF? NO
[2016-08-30 01:14] LABS: BASO # 0.01 [, K/mm3] (0.0-2.0); EOS # 0.2 (0.0-0.7); EOS % 0.6 % (1.5-5.0); GRAN # 22.61 (1.4-6.5); GRAN % 90.5 % (50.0-68.0); HEMATOCRIT 29.3 % (42.0-52.0); LYMPH # 0.7 (1.2-3.4); LYMPH % 2.9 % (22.0-35.0); MEAN CELL VOLUME 88.8 fL (80.0-105.0); MEAN CORPUSCULAR HEMOGLOBIN 30.6 pg (25.0-35.0); MEAN CORPUSCULAR HGB CONC 34.5 g/dl (31.0-37.0); MEAN PLATELET VOLUME 13.7 fl (7.0-11.0); MONO # 1.5 (0.1-0.6); PLATELET COUNT 244 [, 10^3/uL] (120.0-450.0); RED CELL DISTRIBUTION WIDTH 16.3 % (11.5-14.5)
[2016-08-30 01:20] LABS: INR 1.21 (0.93-1.08); PARTIAL THROMBOPLASTIN TIME 34.9 Seconds (23.7-30.8)
[2016-08-30 01:34] LABS: ALB/GLOB RATIO 0.8 (1.1-1.8); BILIRUBIN,TOTAL 0.7 mg/dL (0.2-1.3); CALCIUM 7.3 mg/dL (8.4-10.5); PHOSPHOROUS 6.2 mg/dL (2.5-4.5); TOTAL PROTEIN 4.5 g/dL (5.8-8.3)
[2016-08-30 01:52] LABS: TROPONIN I 28.3 ng/mL
[2016-08-30] MEDS: Metoprolol 1 mg/ml Inj IVP SCH ×5 (02:15→21:24)
--- NOTE | 2016-08-30 02:50 | PN ---
DATE: 08/29/2016 SUBJECTIVE: The patient was seen and examined on the bedside, looks comfortable , still intubated, sedated, arousable, getting Diprivan, no hemostasis, no hematemesis, no hematuria, no hematochezia, no vomiting. No fever, no chills. This is one episode of melena today as per nursing staff. No significant swelling of the leg. The patient is sedated, is not able to get complete review of systems. The patient is on ventilator. PHYSICAL EXAMINATION: VITAL SIGNS: Temperature 98, heart rate is 68, respiratory rate 20, blood pressure 120/61, and pulse oximetry 95% on room air. HEAD: Normocephalic, atraumatic. EYES: PERRLA. Extraocular muscles intact. Conjunctivae pink. Eyelids unremarkable. Nose patent. NECK: Supple. No carotid bruit, JVD or thyromegaly. CHEST: Bilaterally symmetrical. HEART: S1, S2 positive. LUNGS: Clear to auscultation. ABDOMEN: Soft. Bowel sounds present. No organomegaly. EXTREMITIES: No edema, no cyanosis. NEUROLOGIC: Clear to auscultation. The patient is sedated, is not able to do complete neurological examination. MEDICATIONS: 1. Diprivan. 2. Doxycycline. 3. Ecotrin. 4. Flagyl. 6. Metoprolol. 7. Cefepime. 8. Plavix. 9. Protonix. 10. Pulmicort. 11. Tylenol. LABORATORY DATA: Hemoglobin 9.6, hematocrit 28.3, white blood cells 27,000, platelets 232. Sodium 140, potassium 3.9, BUN 96, creatinine 5.0, AST 34, ALT 55. ASSESSMENT AND PLAN: The patient is an 81-year-old male with anemia requiring multi units of packed RBC transfusion, had gastric ulcer, blood transfusion as per Dr. Dillard. May have component of aspiration pneumonia and cardiopulmonary, edema history of hypertension, coronary artery disease, history of coronary stent, improving metabolic acidosis and renal failure. Discussion done with nursing staff. Continue sedation. Repeat chest x-rays, ABGs. Reviewed Dr. Ruff's notes. The patient was seen by Dr. Aundrea Alcazar wind energy technician and Dr. Pierce, infectious disease. Will follow up. Sana Myers MD cc: [id number] TT: 08/30/2016 02:49:10 Confirmation # [id number] Dictation # [id number] [id number] MTDD
[2016-08-30] MEDS: Dexmedetomidine HCl 4mcg/ml 100 ML IV PRN ×2 (05:28→10:35)
[2016-08-30] MEDS: metroNIDAZOLE IV 500 mg/100 ml 100 ML IVPB SCH ×3 (05:28→21:27)
[2016-08-30 05:51] LABS: ARTERIAL BLOOD GAS HCO3 12.5 mmol/L (21-28); ARTERIAL BLOOD GAS O2 CAPACITY 13.6 mL/dl (16-24); ARTERIAL BLOOD GAS O2 CONTENT 13.4 ML/dl (15-23); ARTERIAL BLOOD GAS PH 7.29 (7.35-7.45); CARBOXYHEMOGLOBIN 1.7 % (0.5-1.5); HHB 1.2 % (0-5); METHEMOGLOBIN 1.1 % (0.0-3.0)
[2016-08-30 06:01] LABS: BASO # 0.01 [, K/mm3] (0.0-2.0); EOS # 0.2 (0.0-0.7); EOS % 0.7 % (1.5-5.0); GRAN # 21.16 (1.4-6.5); GRAN % 89.6 % (50.0-68.0); LYMPH # 1.1 (1.2-3.4); LYMPH % 4.5 % (22.0-35.0); MEAN CELL VOLUME 89.8 fL (80.0-105.0); MEAN CORPUSCULAR HGB CONC 33.4 g/dl (31.0-37.0); MEAN PLATELET VOLUME 13.9 fl (7.0-11.0); MONO # 1.2 (0.1-0.6); MONO % 5.2 % (1.0-6.0); PLATELET COUNT 253 [, 10^3/uL] (120.0-450.0); RED CELL DISTRIBUTION WIDTH 16.3 % (11.5-14.5); WHITE BLOOD COUNT 23.6 [, 10^3/ul] (4.5-11.0)
[2016-08-30 06:03] LABS: ADD MANUAL DIFF? NO
[2016-08-30 06:11] LABS: ALB/GLOB RATIO 0.8 (1.1-1.8); BILIRUBIN,TOTAL 0.7 mg/dL (0.2-1.3); CALCIUM 7.4 mg/dL (8.4-10.5); MAGNESIUM 2.1 mg/dL (1.7-2.2); PHOSPHOROUS 6.7 mg/dL (2.5-4.5); POTASSIUM 3.9 mmol/L (3.6-5.0); TOTAL PROTEIN 4.3 g/dL (5.8-8.3)
[2016-08-30 06:16] LABS: INR 1.25 (0.93-1.08); PARTIAL THROMBOPLASTIN TIME 37.1 Seconds (23.7-30.8)
[2016-08-30 06:39] LABS: TROPONIN I 26.6 ng/mL
[2016-08-30] MEDS: Arformoterol 15 mcg/2 ml Inh Sol IH SCH ×2 (08:04→19:38)
[2016-08-30] MEDS: Budesonide 0.5 mg/2 ml Inhal Susp UD IH SCH ×2 (08:04→19:38)
[2016-08-30] MEDS: Insulin Lispro (humaLOG) LOW Coverage SC SCH ×4 (08:12→22:20)
--- NOTE | 2016-08-30 09:14 | RAD ---
PROCEDURE: CHEST RADIOGRAPH, 1 VIEW HISTORY: intubated, f/u COMPARISON: 08/29/2016 FINDINGS: LUNGS: There is improvement in the vascular congestion and perihilar infiltrates right greater than left PLEURA: No pneumothorax or pleural fluid seen. CARDIOVASCULAR: Normal. OSSEOUS STRUCTURES: No significant abnormalities. VISUALIZED UPPER ABDOMEN: Normal. OTHER FINDINGS: Central lines and tubes are unchanged IMPRESSION: There is improvement in the vascular congestion and perihilar infiltrates right greater than left
--- NOTE | 2016-08-30 10:40 | PN ---
DATE: 08/30/2016 CARDIOLOGY FOLLOWUP The patient remains on a ventilator sedated. PHYSICAL EXAMINATION: VITAL SIGNS: Blood pressure is 108/44. The heart rate is in the 60s. NECK: Negative JVD. LUNGS: No rales noted. HEART: Revealed S1, S2. EXTREMITIES: Without edema. LABORATORY DATA: Troponin remains at 26.6. BUN and creatinine are 103/5.4. The hemoglobin is 9.7. IMPRESSION: 1. Respiratory failure. 2. Non-ST elevation myocardial infarction. 3. Deterioration of left ventricular function with ejection fraction of 35%. 4. Renal insufficiency. 5. Hemoglobin is remaining stable despite gastrointestinal bleed, as well as being replaced on Plavi x. PLAN: Given these findings, the patient has responded to Lasix with improved chest x-ray findings. We will continue to make attempts to diurese the patient. Bashir Samson MD cc: [id number] TT: 08/30/2016 10:39:35 Confirmation # [id number] Dictation # [id number] jn
--- NOTE | 2016-08-30 14:07 | CP.CCUPN ---
<TobyIzabela - Last Filed: 08/30/16 16:00> CCU Subjective - Physician Review Subjective (Free Text): 08/28/16 09:19 Intubated yesterday for abdominal agonal breath. 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, new compared echo 1 year ago 08/30/16 13:53 No Melena overnight CXR - decreased pulm edema with lasix q12 plus 100 IV x 1 HR 60s, BP 100s extubated, on NRB 12L, HR 62, POx 97, BP in high 90s CCU Objective - Vital Signs / Intake & Output Vital Signs (Last 4 hours): Vital Signs Pulse Resp BP Pulse Ox 08/30/16 13:30 65 15 99/46 L 100 08/30/16 13:00 65 18 112/46 L 100 08/30/16 12:31 67 23 86/45 L 95 08/30/16 12:01 59 L 94/52 L 99 08/30/16 12:00 57 L 100 08/30/16 11:30 57 L 103/46 L 100 08/30/16 11:00 58 L 104/47 L 99 08/30/16 10:30 57 L 113/50 L 99 08/30/16 10:00 60 109/51 L 100 Intake and Output (Last 8hrs): Intake & Output 08/29/16 08/30/16 08/30/16 22:59 06:59 14:59 Intake Total 560 559 Output Total 600 1100 Balance -40 -541 Intake: IV 260 259 Right Internal Jugular 260 Precedex 227 Propofol 32 Oral 0 Tube Feeding 0 TPN/PPN 0 Blood Product 0 Lipid 0 Albumin 0 Other 300 300 Output: Urine 600 1100 Urethral (Rodrigez) 600 1100 Stool 0 Urine/Stool Mix 0 Emesis 0 Oral Regurgitation 0 Other 0 Other: Voiding Method Indwelling Catheter Indwelling Catheter # Voids Urethral (Rodrigez) 0 # Bowel Movements 1 0 - Physical Exam Head: Positive for: Atraumatic, Normocephalic Pupils: Positive for: PERRL Extroacular Muscles: Positive for: EOMI Conjunctiva: Positive for: Other (conjunctival pallor) Mouth: Positive for: Moist Mucous Membranes Neck: Positive for: MIDLINE TENDERNESS (RIJ in place) Respiratory/Chest: Positive for: Clear to Auscultation, Good Air Exchange, Rales , Rhonchi, Other (vesicular breath sounds). Negative for: Respiratory Distress , Accessory Muscle Use, Retracting Cardiovascular: Positive for: Regular Rate and Rhythm, Normal S1, S2. Negative for: Murmurs Abdomen: Positive for: Normal Bowel Sounds. Negative for: Tenderness, Distention, Peritoneal Signs Rectal: Positive for: Hemorrhoids (external), Other (Hematochezia). Negative for: Normal Rectal Tone (dilated rectal tone, soft prostate), Fissures Back: Positive for: Normal Inspection Upper Extremity: Negative for: Edema, Erythema Lower Extremity: Positive for: Edema (2+ Pitting edema of left LE, with long healed scars) Neurological: Negative for: Speech Normal (per son, slurred) Skin: Positive for: Dry, Normal Color, Abrasion (on left UE). Negative for: Warm (cool extremities), Rashes Psychiatric: Positive for: Alert (responsive to son and commands in Upper Sor[place]) - Medications Active Medications: Active Medications Generic Name Dose Route Start Last Admin Trade Name Freq PRN Reason Stop Dose Admin Acetaminophen 650 mg 08/26/16 16:19 Tylenol 650 Mg Supp RC Q4H PRN Fever >100.4 F Arformoterol Tartrate 15 mcg 08/26/16 20:00 08/30/16 08:04 Brovana IH 15 mcg [id number] YUVAL Administration Aspirin 81 mg 08/29/16 10:00 08/30/16 10:53 Ecotrin PO 81 mg DAILY YUVAL Administration Budesonide 0.5 mg 08/26/16 20:00 08/30/16 08:04 Pulmicort Respules IH 0.5 mg [id number] YUVAL Administration Clopidogrel Bisulfate 75 mg 08/29/16 10:00 08/30/16 10:53 Plavix NG 75 mg DAILY YUVAL Administration Furosemide 40 mg 08/28/16 22:00 08/30/16 10:53 Lasix IVP Not Given Q12 YUVAL Metronidazole 100 mls @ 100 mls/hr 08/26/16 15:00 08/30/16 05:28 Flagyl IVPB 100 mls/hr Q8 YUVAL Administration Protocol Doxycycline Hyclate 100 mg/ 100 mls @ 100 mls/hr 08/27/16 10:00 08/30/16 10:53 Sodium Chloride IVPB 09/10/16 10:01 100 mls/hr Q12 YUVAL Administration Protocol Dexmedetomidine HCl 100 mls @ 3.59 mls/hr 08/29/16 10:40 08/30/16 10:35 Precedex 4 Mcg/Ml (100 Ml) IV 21.541 mls/hr .Q24H PRN Administration Agitation Protocol 0.2 MCG/KG/HR Cefepime HCl 100 mls @ 100 mls/hr 08/29/16 15:15 08/29/16 16:20 Maxipime 1gm IVPB 09/05/16 15:16 100 mls/hr Q24H YUVAL Administration Protocol Propofol 100 mls @ 4.308 mls/hr 08/29/16 16:09 08/30/16 06:45 Diprivan IV 10 mcg/kg/min .[id number] PRN Titration TITRATE PER MD ORDER Protocol 10 MCG/KG/MIN Insulin Human Lispro 0 units 08/26/16 22:00 08/30/16 08:12 Humalog Low SC 1 units ACHS YUVAL Administration Protocol Metoprolol Tartrate 5 mg 08/29/16 14:00 08/30/16 08:12 Lopressor IVP 5 mg Q6H YUVAL Administration Pantoprazole Sodium 40 mg 08/26/16 22:00 08/30/16 10:53 Protonix Inj IVP 40 mg Q12 YUVAL Administration - Patient Studies Lab Studies: Microbiology Studies 08/27/16 09:45 Blood Culture - Preliminary Blood NO GROWTH AFTER 3 DAYS 08/27/16 09:45 Blood Culture - Preliminary Blood NO GROWTH AFTER 3 DAYS 08/29/16 16:30 Gram Stain - Final Sputum Lab Studies 08/30/16 08/30/16 08/30/16 Range/Units 11:15 07:33 05:50 WBC 23.6 H (4.5-11.0) 10^3/ul RBC 3.23 L (3.5-6.1) 10^6/uL Hgb 9.7 L (14.0-18.0) gm/dL Hct 29.0 L (42.0-52.0) % MCV 89.8 (80.0-105.0) fL MCH 30.0 (25.0-35.0) pg MCHC 33.4 (31.0-37.0) g/dl RDW 16.3 H (11.5-14.5) % Plt Count 253 (120.0-450.0) 10^3/uL MPV 13.9 H (7.0-11.0) fl Gran % 89.6 H (50.0-68.0) % Lymph % (Auto) 4.5 L (22.0-35.0) % [place] % (Auto) 5.2 (1.0-6.0) % Eos % (Auto) 0.7 L (1.5-5.0) % Baso % (Auto) 0.0 (0.0-3.0) % Gran # 21.16 H (1.4-6.5) Lymph # 1.1 L (1.2-3.4) [place] # 1.2 H (0.1-0.6) Eos # 0.2 (0.0-0.7) Baso # 0.01 (0.0-2.0) K/mm3 Haptoglobin (43-212) mg/dL PT 13.5 H (9.9-11.8) Seconds INR 1.25 H (0.93-1.08) APTT 37.1 H (23.7-30.8) Seconds pCO2 (35-45) mm/Hg pO2 (80-100) mm/Hg HCO3 (21-28) mmol/L ABG pH (7.35-7.45) ABG Total CO2 (22-28) mmol.L ABG O2 Saturation (95-98) % ABG O2 Content (15-23) ML/dl ABG Base Excess (-2.0-3.0) mmol/L ABG Hemoglobin (11.7-17.4) g/dL ABG Carboxyhemoglobin (0.5-1.5) % POC ABG HHb (Measured) (0-5) % ABG Methemoglobin (0.0-3.0) % ABG O2 Capacity (16-24) mL/dl Hgb O2 Saturation (95.0-98.0) % FiO2 % Sodium 143 (132-148) mmol/L Potassium 3.9 (3.6-5.0) mmol/L Chloride 115 H (98-107) mmol/L Carbon Dioxide 16 L (21-33) mmol/L Anion Gap 16 (10-20) BUN 103 H (7-21) mg/dL Creatinine 5.4 H (0.5-1.4) mg/dL Est GFR ( Amer) 12 Est GFR (Non-Af Amer) 10 POC Glucose (mg/dL) 183 H 171 H (65-110) mg/dL Random Glucose 155 H (70-110) mg/dL Calcium 7.4 L (8.4-10.5) mg/dL Phosphorus 6.7 H (2.5-4.5) mg/dL Magnesium 2.1 (1.7-2.2) mg/dL Total Bilirubin 0.7 (0.2-1.3) mg/dL AST 25 (15-59) U/L ALT 52 (7-56) U/L Alkaline Phosphatase 65 (38-133) U/L Lactate Dehydrogenase 1218 H (333-699) U/L Total Creatine Kinase 65 (35-230) U/L Troponin I 26.60 H* ng/mL NT-Pro-B Natriuret Pep (0-450) pg/mL Total Protein 4.3 L (5.8-8.3) g/dL Albumin 1.9 L (3.0-4.8) g/dL Globulin 2.4 gm/dL Albumin/Globulin Ratio 0.8 L (1.1-1.8) Proteinase 3 (PR3) (<1.0) AI Myeloperoxidase Ab (<1.0) AI Glomerular Base Mem IgG (<1.0) AI Mycoplasma pneumon IgG (<=0.90) Mycoplasma pneumon IgM (<770) U/mL BURTON, Poly Interpret (NEGATIVE) Indirect Antiglob Test 08/30/16 08/30/16 08/29/16 Range/Units 05:40 01:00 21:25 WBC 25.0 H (4.5-11.0) 10^3/ul RBC 3.30 L (3.5-6.1) 10^6/uL Hgb 10.1 L (14.0-18.0) gm/dL Hct 29.3 L (42.0-52.0) % MCV 88.8 (80.0-105.0) fL MCH 30.6 (25.0-35.0) pg MCHC 34.5 (31.0-37.0) g/dl RDW 16.3 H (11.5-14.5) % Plt Count 244 (120.0-450.0) 10^3/uL MPV 13.7 H (7.0-11.0) fl Gran % 90.5 H (50.0-68.0) % Lymph % (Auto) 2.9 L (22.0-35.0) % [place] % (Auto) 6.0 (1.0-6.0) % Eos % (Auto) 0.6 L (1.5-5.0) % Baso % (Auto) 0.0 (0.0-3.0) % Gran # 22.61 H (1.4-6.5) Lymph # 0.7 L (1.2-3.4) [place] # 1.5 H (0.1-0.6) Eos # 0.2 (0.0-0.7) Baso # 0.01 (0.0-2.0) K/mm3 Haptoglobin (43-212) mg/dL PT 13.1 H (9.9-11.8) Seconds INR 1.21 H (0.93-1.08) APTT 34.9 H (23.7-30.8) Seconds pCO2 26 L (35-45) mm/Hg pO2 111.0 H (80-100) mm/Hg HCO3 12.5 L (21-28) mmol/L ABG pH 7.29 L (7.35-7.45) ABG Total CO2 13.3 L (22-28) mmol.L ABG O2 Saturation 98.8 H (95-98) % ABG O2 Content 13.4 L (15-23) ML/dl ABG Base Excess -12.7 L (-2.0-3.0) mmol/L ABG Hemoglobin 9.8 L (11.7-17.4) g/dL ABG Carboxyhemoglobin 1.7 H (0.5-1.5) % POC ABG HHb (Measured) 1.2 (0-5) % ABG Methemoglobin 1.1 (0.0-3.0) % ABG O2 Capacity 13.6 L (16-24) mL/dl Hgb O2 Saturation 96.0 (95.0-98.0) % FiO2 40.0 % Sodium 140 (132-148) mmol/L Potassium 4.0 (3.6-5.0) mmol/L Chloride 113 H (98-107) mmol/L Carbon Dioxide 16 L (21-33) mmol/L Anion Gap 15 (10-20) BUN 103 H (7-21) mg/dL Creatinine 5.2 H (0.5-1.4) mg/dL Est GFR ( Amer) 13 Est GFR (Non-Af Amer) 11 POC Glucose (mg/dL) 179 H (65-110) mg/dL Random Glucose 150 H (70-110) mg/dL Calcium 7.3 L (8.4-10.5) mg/dL Phosphorus 6.2 H (2.5-4.5) mg/dL Magnesium 2.0 (1.7-2.2) mg/dL Total Bilirubin 0.7 (0.2-1.3) mg/dL AST 40 (15-59) U/L ALT 56 (7-56) U/L Alkaline Phosphatase 67 (38-133) U/L Lactate Dehydrogenase 1430 H (333-699) U/L Total Creatine Kinase 70 (35-230) U/L Troponin I 28.30 H* ng/mL NT-Pro-B Natriuret Pep (0-450) pg/mL Total Protein 4.5 L (5.8-8.3) g/dL Albumin 2.0 L (3.0-4.8) g/dL Globulin 2.6 gm/dL Albumin/Globulin Ratio 0.8 L (1.1-1.8) Proteinase 3 (PR3) (<1.0) AI Myeloperoxidase Ab (<1.0) AI Glomerular Base Mem IgG (<1.0) AI Mycoplasma pneumon IgG (<=0.90) Mycoplasma pneumon IgM (<770) U/mL BURTON, Poly Interpret (NEGATIVE) Indirect Antiglob Test 08/29/16 08/29/16 08/29/16 Range/Units 17:45 15:58 14:30 WBC 26.8 H* 25.3 H* (4.5-11.0) 10^3/ul RBC 3.17 L 3.05 L (3.5-6.1) 10^6/uL Hgb 9.6 L 9.3 L (14.0-18.0) gm/dL Hct 28.3 L 27.4 L (42.0-52.0) % MCV 89.3 89.8 (80.0-105.0) fL MCH 30.3 30.5 (25.0-35.0) pg MCHC 33.9 33.9 (31.0-37.0) g/dl RDW 16.4 H 16.4 H (11.5-14.5) % Plt Count 232 208 (120.0-450.0) 10^3/uL MPV 14.0 H 13.9 H (7.0-11.0) fl Gran % 91.3 H 91.2 H (50.0-68.0) % Lymph % (Auto) 2.8 L 3.8 L (22.0-35.0) % [place] % (Auto) 5.6 4.6 (1.0-6.0) % Eos % (Auto) 0.3 L 0.4 L (1.5-5.0) % Baso % (Auto) 0.0 0.0 (0.0-3.0) % Gran # 24.41 H 23.05 H (1.4-6.5) Lymph # 0.8 L 1.0 L (1.2-3.4) [place] # 1.5 H 1.2 H (0.1-0.6) Eos # 0.1 0.1 (0.0-0.7) Baso # 0.01 0.01 (0.0-2.0) K/mm3 Haptoglobin (43-212) mg/dL PT 12.7 H 13.2 H (9.9-11.8) Seconds INR 1.18 H 1.22 H (0.93-1.08) APTT 35.5 H 36.4 H (23.7-30.8) Seconds pCO2 (35-45) mm/Hg pO2 (80-100) mm/Hg HCO3 (21-28) mmol/L ABG pH (7.35-7.45) ABG Total CO2 (22-28) mmol.L ABG O2 Saturation (95-98) % ABG O2 Content (15-23) ML/dl ABG Base Excess (-2.0-3.0) mmol/L ABG Hemoglobin (11.7-17.4) g/dL ABG Carboxyhemoglobin (0.5-1.5) % POC ABG HHb (Measured) (0-5) % ABG Methemoglobin (0.0-3.0) % ABG O2 Capacity (16-24) mL/dl Hgb O2 Saturation (95.0-98.0) % FiO2 % Sodium 140 140 (132-148) mmol/L Potassium 3.9 3.8 (3.6-5.0) mmol/L Chloride 114 H 114 H (98-107) mmol/L Carbon Dioxide 17 L 18 L (21-33) mmol/L Anion Gap 13 12 (10-20) BUN 96 H 95 H (7-21) mg/dL Creatinine 5.0 H 5.1 H (0.5-1.4) mg/dL Est GFR ( Amer) 14 13 Est GFR (Non-Af Amer) 11 11 POC Glucose (mg/dL) 150 H (65-110) mg/dL Random Glucose 146 H 135 H (70-110) mg/dL Calcium 7.1 L 7.0 L (8.4-10.5) mg/dL Phosphorus 5.5 H 5.2 H (2.5-4.5) mg/dL Magnesium 2.0 2.0 (1.7-2.2) mg/dL Total Bilirubin 0.6 0.6 (0.2-1.3) mg/dL AST 34 34 (15-59) U/L ALT 55 58 H (7-56) U/L Alkaline Phosphatase 65 62 (38-133) U/L Lactate Dehydrogenase 1416 H 1445 H (333-699) U/L Total Creatine Kinase 92 93 (35-230) U/L Troponin I 29.70 H* 27.20 H* ng/mL NT-Pro-B Natriuret Pep 67652 H (0-450) pg/mL Total Protein 4.4 L 4.2 L (5.8-8.3) g/dL Albumin 1.9 L 1.8 L (3.0-4.8) g/dL Globulin 2.5 2.4 gm/dL Albumin/Globulin Ratio 0.8 L 0.8 L (1.1-1.8) Proteinase 3 (PR3) (<1.0) AI Myeloperoxidase Ab (<1.0) AI Glomerular Base Mem IgG (<1.0) AI Mycoplasma pneumon IgG (<=0.90) Mycoplasma pneumon IgM (<770) U/mL BURTON, Poly Interpret (NEGATIVE) Indirect Antiglob Test 08/28/16 08/28/16 08/27/16 Range/Units 18:31 18:00 10:31 WBC (4.5-11.0) 10^3/ul RBC (3.5-6.1) 10^6/uL Hgb (14.0-18.0) gm/dL Hct (42.0-52.0) % MCV (80.0-105.0) fL MCH (25.0-35.0) pg MCHC (31.0-37.0) g/dl RDW (11.5-14.5) % Plt Count (120.0-450.0) 10^3/uL MPV (7.0-11.0) fl Gran % (50.0-68.0) % Lymph % (Auto) (22.0-35.0) % [place] % (Auto) (1.0-6.0) % Eos % (Auto) (1.5-5.0) % Baso % (Auto) (0.0-3.0) % Gran # (1.4-6.5) Lymph # (1.2-3.4) [place] # (0.1-0.6) Eos # (0.0-0.7) Baso # (0.0-2.0) K/mm3 Haptoglobin 157 (43-212) mg/dL PT (9.9-11.8) Seconds INR (0.93-1.08) APTT (23.7-30.8) Seconds pCO2 (35-45) mm/Hg pO2 (80-100) mm/Hg HCO3 (21-28) mmol/L ABG pH (7.35-7.45) ABG Total CO2 (22-28) mmol.L ABG O2 Saturation (95-98) % ABG O2 Content (15-23) ML/dl ABG Base Excess (-2.0-3.0) mmol/L ABG Hemoglobin (11.7-17.4) g/dL ABG Carboxyhemoglobin (0.5-1.5) % POC ABG HHb (Measured) (0-5) % ABG Methemoglobin (0.0-3.0) % ABG O2 Capacity (16-24) mL/dl Hgb O2 Saturation (95.0-98.0) % FiO2 % Sodium (132-148) mmol/L Potassium (3.6-5.0) mmol/L Chloride (98-107) mmol/L Carbon Dioxide (21-33) mmol/L Anion Gap (10-20) BUN (7-21) mg/dL Creatinine (0.5-1.4) mg/dL Est GFR ( Amer) Est GFR (Non-Af Amer) POC Glucose (mg/dL) (65-110) mg/dL Random Glucose (70-110) mg/dL Calcium (8.4-10.5) mg/dL Phosphorus (2.5-4.5) mg/dL Magnesium (1.7-2.2) mg/dL Total Bilirubin (0.2-1.3) mg/dL AST (15-59) U/L ALT (7-56) U/L Alkaline Phosphatase (38-133) U/L Lactate Dehydrogenase (333-699) U/L Total Creatine Kinase (35-230) U/L Troponin I ng/mL NT-Pro-B Natriuret Pep (0-450) pg/mL Total Protein (5.8-8.3) g/dL Albumin (3.0-4.8) g/dL Globulin gm/dL Albumin/Globulin Ratio (1.1-1.8) Proteinase 3 (PR3) (<1.0) AI Myeloperoxidase Ab (<1.0) AI Glomerular Base Mem IgG (<1.0) AI Mycoplasma pneumon IgG 1.00 H (<=0.90) Mycoplasma pneumon IgM 44 (<770) U/mL BURTON, Poly Interpret Negative (NEGATIVE) Indirect Antiglob Test 08/27/16 Range/Units 09:45 WBC (4.5-11.0) 10^3/ul RBC (3.5-6.1) 10^6/uL Hgb (14.0-18.0) gm/dL Hct (42.0-52.0) % MCV (80.0-105.0) fL MCH (25.0-35.0) pg MCHC (31.0-37.0) g/dl RDW (11.5-14.5) % Plt Count (120.0-450.0) 10^3/uL MPV (7.0-11.0) fl Gran % (50.0-68.0) % Lymph % (Auto) (22.0-35.0) % [place] % (Auto) (1.0-6.0) % Eos % (Auto) (1.5-5.0) % Baso % (Auto) (0.0-3.0) % Gran # (1.4-6.5) Lymph # (1.2-3.4) [place] # (0.1-0.6) Eos # (0.0-0.7) Baso # (0.0-2.0) K/mm3 Haptoglobin (43-212) mg/dL PT (9.9-11.8) Seconds INR (0.93-1.08) APTT (23.7-30.8) Seconds pCO2 (35-45) mm/Hg pO2 (80-100) mm/Hg HCO3 (21-28) mmol/L ABG pH (7.35-7.45) ABG Total CO2 (22-28) mmol.L ABG O2 Saturation (95-98) % ABG O2 Content (15-23) ML/dl ABG Base Excess (-2.0-3.0) mmol/L ABG Hemoglobin (11.7-17.4) g/dL ABG Carboxyhemoglobin (0.5-1.5) % POC ABG HHb (Measured) (0-5) % ABG Methemoglobin (0.0-3.0) % ABG O2 Capacity (16-24) mL/dl Hgb O2 Saturation (95.0-98.0) % FiO2 % Sodium (132-148) mmol/L Potassium (3.6-5.0) mmol/L Chloride (98-107) mmol/L Carbon Dioxide (21-33) mmol/L Anion Gap (10-20) BUN (7-21) mg/dL Creatinine (0.5-1.4) mg/dL Est GFR ( Amer) Est GFR (Non-Af Amer) POC Glucose (mg/dL) (65-110) mg/dL Random Glucose (70-110) mg/dL Calcium (8.4-10.5) mg/dL Phosphorus (2.5-4.5) mg/dL Magnesium (1.7-2.2) mg/dL Total Bilirubin (0.2-1.3) mg/dL AST (15-59) U/L ALT (7-56) U/L Alkaline Phosphatase (38-133) U/L Lactate Dehydrogenase (333-699) U/L Total Creatine Kinase (35-230) U/L Troponin I ng/mL NT-Pro-B Natriuret Pep (0-450) pg/mL Total Protein (5.8-8.3) g/dL Albumin (3.0-4.8) g/dL Globulin gm/dL Albumin/Globulin Ratio (1.1-1.8) Proteinase 3 (PR3) <1.0 (<1.0) AI Myeloperoxidase Ab <1.0 (<1.0) AI Glomerular Base Mem IgG <1.0 (<1.0) AI Mycoplasma pneumon IgG (<=0.90) Mycoplasma pneumon IgM (<770) U/mL BURTON, Poly Interpret (NEGATIVE) Indirect Antiglob Test Laboratory Results - last 24 hr 08/27/16 08/27/16 08/28/16 09:45 10:31 18:00 WBC RBC Hgb Hct MCV MCH MCHC RDW Plt Count MPV Gran % Lymph % (Auto) [place] % (Auto) Eos % (Auto) Baso % (Auto) Gran # Lymph # [place] # Eos # Baso # Haptoglobin PT INR APTT pCO2 pO2 HCO3 ABG pH ABG Total CO2 ABG O2 Saturation ABG O2 Content ABG Base Excess ABG Hemoglobin ABG Carboxyhemoglobin POC ABG HHb (Measured) ABG Methemoglobin ABG O2 Capacity Hgb O2 Saturation FiO2 Sodium Potassium Chloride Carbon Dioxide Anion Gap BUN Creatinine Est GFR ( Amer) Est GFR (Non-Af Amer) POC Glucose (mg/dL) Random Glucose Calcium Phosphorus Magnesium Total Bilirubin AST ALT Alkaline Phosphatase Lactate Dehydrogenase Total Creatine Kinase Troponin I NT-Pro-B Natriuret Pep Total Protein Albumin Globulin Albumin/Globulin Ratio Proteinase 3 (PR3) <1.0 Myeloperoxidase Ab <1.0 Glomerular Base Mem IgG <1.0 Mycoplasma pneumon IgG 1.00 H Mycoplasma pneumon IgM 44 BURTON, Poly Interpret Negative Indirect Antiglob Test 08/28/16 08/29/16 08/29/16 18:31 14:30 15:58 WBC 25.3 H* RBC 3.05 L Hgb 9.3 L Hct 27.4 L MCV 89.8 MCH 30.5 MCHC 33.9 RDW 16.4 H Plt Count 208 MPV 13.9 H Gran % 91.2 H Lymph % (Auto) 3.8 L [place] % (Auto) 4.6 Eos % (Auto) 0.4 L Baso % (Auto) 0.0 Gran # 23.05 H Lymph # 1.0 L [place] # 1.2 H Eos # 0.1 Baso # 0.01 Haptoglobin 157 PT 13.2 H INR 1.22 H APTT 36.4 H pCO2 pO2 HCO3 ABG pH ABG Total CO2 ABG O2 Saturation ABG O2 Content ABG Base Excess ABG Hemoglobin ABG Carboxyhemoglobin POC ABG HHb (Measured) ABG Methemoglobin ABG O2 Capacity Hgb O2 Saturation FiO2 Sodium 140 Potassium 3.8 Chloride 114 H Carbon Dioxide 18 L Anion Gap 12 BUN 95 H Creatinine 5.1 H Est GFR ( Amer) 13 Est GFR (Non-Af Amer) 11 POC Glucose (mg/dL) 150 H Random Glucose 135 H Calcium 7.0 L Phosphorus 5.2 H Magnesium 2.0 Total Bilirubin 0.6 AST 34 ALT 58 H Alkaline Phosphatase 62 Lactate Dehydrogenase 1445 H Total Creatine Kinase 93 Troponin I 27.20 H* NT-Pro-B Natriuret Pep 26541 H Total Protein 4.2 L Albumin 1.8 L Globulin 2.4 Albumin/Globulin Ratio 0.8 L Proteinase 3 (PR3) Myeloperoxidase Ab Glomerular Base Mem IgG Mycoplasma pneumon IgG Mycoplasma pneumon IgM BURTON, Poly Interpret Indirect Antiglob Test 08/29/16 08/29/16 08/30/16 17:45 21:25 01:00 WBC 26.8 H* 25.0 H RBC 3.17 L 3.30 L Hgb 9.6 L 10.1 L Hct 28.3 L 29.3 L MCV 89.3 88.8 MCH 30.3 30.6 MCHC 33.9 34.5 RDW 16.4 H 16.3 H Plt Count 232 244 MPV 14.0 H 13.7 H Gran % 91.3 H 90.5 H Lymph % (Auto) 2.8 L 2.9 L [place] % (Auto) 5.6 6.0 Eos % (Auto) 0.3 L 0.6 L Baso % (Auto) 0.0 0.0 Gran # 24.41 H 22.61 H Lymph # 0.8 L 0.7 L [place] # 1.5 H 1.5 H Eos # 0.1 0.2 Baso # 0.01 0.01 Haptoglobin PT 12.7 H 13.1 H INR 1.18 H 1.21 H APTT 35.5 H 34.9 H pCO2 pO2 HCO3 ABG pH ABG Total CO2 ABG O2 Saturation ABG O2 Content ABG Base Excess ABG Hemoglobin ABG Carboxyhemoglobin POC ABG HHb (Measured) ABG Methemoglobin ABG O2 Capacity Hgb O2 Saturation FiO2 Sodium 140 140 Potassium 3.9 4.0 Chloride 114 H 113 H Carbon Dioxide 17 L 16 L Anion Gap 13 15 BUN 96 H 103 H Creatinine 5.0 H 5.2 H Est GFR ( Amer) 14 13 Est GFR (Non-Af Amer) 11 11 POC Glucose (mg/dL) 179 H Random Glucose 146 H 150 H Calcium 7.1 L 7.3 L Phosphorus 5.5 H 6.2 H Magnesium 2.0 2.0 Total Bilirubin 0.6 0.7 AST 34 40 ALT 55 56 Alkaline Phosphatase 65 67 Lactate Dehydrogenase 1416 H 1430 H Total Creatine Kinase 92 70 Troponin I 29.70 H* 28.30 H* NT-Pro-B Natriuret Pep Total Protein 4.4 L 4.5 L Albumin 1.9 L 2.0 L Globulin 2.5 2.6 Albumin/Globulin Ratio 0.8 L 0.8 L Proteinase 3 (PR3) Myeloperoxidase Ab Glomerular Base Mem IgG Mycoplasma pneumon IgG Mycoplasma pneumon IgM BURTON, Poly Interpret Indirect Antiglob Test 08/30/16 08/30/16 08/30/16 05:40 05:50 07:33 WBC 23.6 H RBC 3.23 L Hgb 9.7 L Hct 29.0 L MCV 89.8 MCH 30.0 MCHC 33.4 RDW 16.3 H Plt Count 253 MPV 13.9 H Gran % 89.6 H Lymph % (Auto) 4.5 L [place] % (Auto) 5.2 Eos % (Auto) 0.7 L Baso % (Auto) 0.0 Gran # 21.16 H Lymph # 1.1 L [place] # 1.2 H Eos # 0.2 Baso # 0.01 Haptoglobin PT 13.5 H INR 1.25 H APTT 37.1 H pCO2 26 L pO2 111.0 H HCO3 12.5 L ABG pH 7.29 L ABG Total CO2 13.3 L ABG O2 Saturation 98.8 H ABG O2 Content 13.4 L ABG Base Excess -12.7 L ABG Hemoglobin 9.8 L ABG Carboxyhemoglobin 1.7 H POC ABG HHb (Measured) 1.2 ABG Methemoglobin 1.1 ABG O2 Capacity 13.6 L Hgb O2 Saturation 96.0 FiO2 40.0 Sodium 143 Potassium 3.9 Chloride 115 H Carbon Dioxide 16 L Anion Gap 16 BUN 103 H Creatinine 5.4 H Est GFR ( Amer) 12 Est GFR (Non-Af Amer) 10 POC Glucose (mg/dL) 171 H Random Glucose 155 H Calcium 7.4 L Phosphorus 6.7 H Magnesium 2.1 Total Bilirubin 0.7 AST 25 ALT 52 Alkaline Phosphatase 65 Lactate Dehydrogenase 1218 H Total Creatine Kinase 65 Troponin I 26.60 H* NT-Pro-B Natriuret Pep Total Protein 4.3 L Albumin 1.9 L Globulin 2.4 Albumin/Globulin Ratio 0.8 L Proteinase 3 (PR3) Myeloperoxidase Ab Glomerular Base Mem IgG Mycoplasma pneumon IgG Mycoplasma pneumon IgM BURTON, Poly Interpret Indirect Antiglob Test 08/30/16 11:15 WBC RBC Hgb Hct MCV MCH MCHC RDW Plt Count MPV Gran % Lymph % (Auto) [place] % (Auto) Eos % (Auto) Baso % (Auto) Gran # Lymph # [place] # Eos # Baso # Haptoglobin PT INR APTT pCO2 pO2 HCO3 ABG pH ABG Total CO2 ABG O2 Saturation ABG O2 Content ABG Base Excess ABG Hemoglobin ABG Carboxyhemoglobin POC ABG HHb (Measured) ABG Methemoglobin ABG O2 Capacity Hgb O2 Saturation FiO2 Sodium Potassium Chloride Carbon Dioxide Anion Gap BUN Creatinine Est GFR ( Amer) Est GFR (Non-Af Amer) POC Glucose (mg/dL) 183 H Random Glucose Calcium Phosphorus Magnesium Total Bilirubin AST ALT Alkaline Phosphatase Lactate Dehydrogenase Total Creatine Kinase Troponin I NT-Pro-B Natriuret Pep Total Protein Albumin Globulin Albumin/Globulin Ratio Proteinase 3 (PR3) Myeloperoxidase Ab Glomerular Base Mem IgG Mycoplasma pneumon IgG Mycoplasma pneumon IgM BURTON, Poly Interpret Indirect Antiglob Test Fingerstick Blood Sugar Results: 183 Assessment/Plan - Assessment and Plan (Free Text) Plan: 82 years old male was found unconscious on the floor on Sunday (08/26) covered with melonic stool with maroon blood clots. Pt had worsened L weakness compared to baseline, slurred speech, and new L nathan-neglect on Good Sunday (08/25). He has NSTEMI \ GI bleed \ Blood loss anemia \ ALLYSON on CKD \ Elevated LFT \ PNA \ Sepsis \ Hx ITP \ ro CVA - Pt intubated for agonal breath due to metabolic acidosis - extubated today - Active GI bleed, now resolved, EGD no active bleed - lkely upper, likely from PUD (Plavix vs H pylori vs immunogenic) vs infectious vs autoimmune vs ischemic. Unlikely from trauma. Hb 5.7 --> 9.4 s/p 4u pRBC, With Hb this low, likely a chronic bleeder. - NSTEMI; Cardio-renal syndrome (dry intravascular, wet lung) - AMS - metabolic encephalopathy due to electrolytes vs sepsis; suspected stroke - Suspected new stroke - new slur speech, L hemineglect, suddened worsening of L weakness - Sepsis - PNA vs UTI. CT confirmed protitis. 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 - Brovana Q12; Pulmicort Q12 (hold because intubation) Cardio - Cardiorenal syndrome - Given 100 Lasix x 1 on schedule lasix - will consider albumin - will consider dobutamin - while pending dialysis decision - NSTEMI - Dr. Samson following on poss catherterization. No active GI bleed. heparin drip - [ ] trend cardiac enzyme, CMP, Mg/Phos, and H/H q6 - hold plavix. cont asa - Hb goal in [place] is above 8-9. - EF 35% (systolic and diastolic componenet), poor wall motion, drastic change compared to echo 1 year ago - IS IT DUE TO NSTMEI? - Pending Dr. Samson on Cath decision, which needs contrast - pending dialysis decision - Hx paroxysmal a-fib, CAD with stent, HTN, HLD; Hx L Carotid endartectomy - Home meds: [place]/Amlodipine 150/5mg daily; Lisinopril 2.5 PO; Metoprolol 50 BIDOn metoprolol - ON HOLD Pulm - No ready to wean off ventilation - pulmonary edema - [place] - intrinsic - pt still need vent to help respiratory compensation and overcome heart failure - Severe sepsis with CAP - Left pleural effusion. Right lower lobe infiltrate. - Increased secretion - Chest PT, Duoneb PRN, Suction PRN, pulm toiletry PRN GI - Hb 5.6 --> 9 after 4p RBC - NPO - Protonix IV BID - C.diff toxin and antigen sent - Bedside Endoscopy (08/28) showed no active bleed, barretts and PUD (1 organized healed scab, 2 clean based) no web - Chest, abdomen, pelvis w.o contrast: Proctitis - Abd u/s: Cholelithiasis with gallbladder wall thickening; sma;; perocholecystic fluid. No sono martinez sign. Fatty liver Nephro - Call and left message Re: decision on temp dialysis - strict i/o. u/o adequate - d/c fluid Endo - Hx IDDM - ISSS-low. Accu-check ACHS - hyperK s/p D50, insulin, albuterol. Avoid Kayexaltate in setting of GI bleed Heme - Per heme, cancel platelet - Hx ITP - LE dupplers b/l negative - DIC vs HUS vs TTP (Renal failure, AMS, fever, WBC keenan high, low plt) - concern hemolytic anemia - hepatitis, babesia, malaric, retic, LDH, heptoglobin, hemolytic anemia workip, mycoplasma - Anemia, acute on chronic, 2/2 GI bleed, ASA/Plavix on hold, s/p 4u RBC - Chronic ITP, failed outpt steroids and rituximab, on thrombopoeitin receptor agonist since 2014, failed to f/u, Promacta on hold for now. Goal plt on promacta should be 50K - DIC/HUS/TTP work up: Fibrinogen, peripheral smear, reticulocytes, LDH, haptoglobin, indirect bilirubin, CMP Infectious - flagyl (day 4), doxy for atypical (day 3) - C.diff negative stop Vancomycin PO (day 3); OFF cefepime (day 2) - PNA work up: urine legionella, M. Pneumonia EIA, mycoplasma Igg, procal - Hemorrhagic stool work up: Babesia, malaria, GBM Ab, parvo B19, ANCA, mau - s/p yunior collins - Barrios culture sent. No growth 24 hours. Negative MRSA screen - tylenol PRN Prophlaxis - SCD - Protonix GI bleed dose Prognosis - Poor: Pneumonia severity index 257: Risk V. 30% mortality - Full Code S/R/D/w Dr. Lizzie Rouse. - Date & Time Date: 08/30/16 Time: 14:09 <Cristi Rouse MD - Last Filed: 08/31/16 08:37> CCU Objective - Vital Signs / Intake & Output Vital Signs (Last 4 hours): Vital Signs Pulse BP 08/31/16 07:44 102/45 L 08/31/16 07:31 143 H Intake and Output (Last 8hrs): Intake & Output 08/30/16 08/31/16 08/31/16 22:59 06:59 14:59 Intake Total 400 580 Output Total 800 2300 Balance -400 -1720 Intake: IV 180 Right Internal Jugular 180 Other 400 400 Output: Urine 800 2200 Urethral (Rodrigez) 800 2200 Stool 100 Emesis 0 Oral Regurgitation 0 Other 0 Other: Voiding Method Indwelling Catheter # Bowel Movements 0 1 - Medications Active Medications: Active Medications Generic Name Dose Route Start Last Admin Trade Name Freq PRN Reason Stop Dose Admin Acetaminophen 650 mg 08/26/16 16:19 Tylenol 650 Mg Supp RC Q4H PRN Fever >100.4 F Arformoterol Tartrate 15 mcg 08/26/16 20:00 08/31/16 07:06 Brovana IH 15 mcg [id number] YUVAL Administration Aspirin 81 mg 08/29/16 10:00 08/30/16 10:53 Ecotrin PO 81 mg DAILY YUVAL Administration Budesonide 0.5 mg 08/26/16 20:00 08/31/16 07:06 Pulmicort Respules IH 0.5 mg [id number] YUVAL Administration Clopidogrel Bisulfate 75 mg 08/29/16 10:00 08/30/16 10:53 Plavix NG 75 mg DAILY YUVAL Administration Furosemide 40 mg 08/28/16 22:00 08/30/16 21:28 Lasix IVP 40 mg Q12 YUVAL Administration Metronidazole 100 mls @ 100 mls/hr 08/26/16 15:00 08/31/16 06:51 Flagyl IVPB 100 mls/hr Q8 YUVAL Administration Protocol Doxycycline Hyclate 100 mg/ 100 mls @ 100 mls/hr 08/27/16 10:00 08/30/16 22:22 Sodium Chloride IVPB 09/10/16 10:01 100 mls/hr Q12 YUVAL Administration Protocol Cefepime HCl 100 mls @ 100 mls/hr 08/29/16 15:15 08/30/16 15:42 Maxipime 1gm IVPB 09/05/16 15:16 100 mls/hr Q24H YUVAL Administration Protocol Heparin Sodium/Sodium Chloride 250 mls @ 8.616 mls/hr 08/30/16 15:45 08/31/16 07:40 Heparin 10540 Units/250ml 1/2 Normal Saline IV 11 units/kg/hr .Q24H YUVAL Titration Protocol 12 UNITS/KG/HR Insulin Human Lispro 0 units 08/26/16 22:00 08/30/16 22:20 Humalog Low SC Not Given ACHS YUVAL Protocol Metoprolol Tartrate 5 mg 08/29/16 14:00 08/31/16 02:31 Lopressor IVP 5 mg Q6H YUVAL Administration Pantoprazole Sodium 40 mg 08/26/16 22:00 08/30/16 21:29 Protonix Inj IVP 40 mg Q12 YUVAL Administration Tetrahydrozoline HCl/Zinc Sulfate 0 ml 08/30/16 21:02 Visine 0.05% Opht Soln OU BID PRN Dry eyes - Patient Studies Lab Studies: Microbiology Studies 08/27/16 13:53 C. difficile Antigen & Toxin A,B (M - Final Stool 08/27/16 09:45 Blood Culture - Preliminary Blood NO GROWTH AFTER 3 DAYS 08/27/16 09:45 Blood Culture - Preliminary Blood NO GROWTH AFTER 3 DAYS Lab Studies 08/31/16 08/31/16 08/31/16 Range/Units 07:18 05:55 05:20 WBC 28.0 H* D (4.5-11.0) 10^3/ul RBC 3.34 L (3.5-6.1) 10^6/uL Hgb 10.1 L (14.0-18.0) gm/dL Hct 29.7 L (42.0-52.0) % MCV 88.9 (80.0-105.0) fL MCH 30.2 (25.0-35.0) pg MCHC 34.0 (31.0-37.0) g/dl RDW 16.5 H (11.5-14.5) % Plt Count 291 (120.0-450.0) 10^3/uL MPV 13.8 H (7.0-11.0) fl Gran % 91.9 H (50.0-68.0) % Lymph % (Auto) 2.0 L (22.0-35.0) % [place] % (Auto) 5.7 (1.0-6.0) % Eos % (Auto) 0.3 L (1.5-5.0) % Baso % (Auto) 0.1 (0.0-3.0) % Gran # 25.72 H (1.4-6.5) Lymph # 0.6 L (1.2-3.4) [place] # 1.6 H (0.1-0.6) Eos # 0.1 (0.0-0.7) Baso # 0.02 (0.0-2.0) K/mm3 PT (9.9-11.8) Seconds INR (0.93-1.08) APTT 41.8 H (23.7-30.8) Seconds pCO2 22 L (35-45) mm/Hg pO2 59.0 L (80-100) mm/Hg HCO3 10.3 L (21-28) mmol/L ABG pH 7.28 L (7.35-7.45) ABG Total CO2 11.0 L (22-28) mmol.L ABG O2 Saturation 92.3 L (95-98) % ABG O2 Content 12.6 L (15-23) ML/dl ABG Base Excess -14.7 L (-2.0-3.0) mmol/L ABG Hemoglobin 10.0 L (11.7-17.4) g/dL ABG Carboxyhemoglobin 2.4 H (0.5-1.5) % POC ABG HHb (Measured) 7.4 H (0-5) % ABG Methemoglobin 1.1 (0.0-3.0) % ABG O2 Capacity 13.7 L (16-24) mL/dl Hgb O2 Saturation 89.2 L (95.0-98.0) % FiO2 32.0 % Sodium 144 (132-148) mmol/L Potassium 3.8 (3.6-5.0) mmol/L Chloride 115 H (95-110) mmol/L Carbon Dioxide 12 L (21-33) mmol/L Anion Gap 21 H (10-20) BUN 112 H (7-21) mg/dL Creatinine 5.7 H (0.5-1.4) mg/dL Est GFR ( Amer) 12 Est GFR (Non-Af Amer) 10 POC Glucose (mg/dL) 161 H (65-110) mg/dL Random Glucose 129 H (70-110) mg/dL Calcium 7.7 L (8.4-10.5) mg/dL Phosphorus 7.1 H (2.5-4.5) mg/dL Magnesium 2.1 (1.7-2.2) mg/dL Total Bilirubin 0.6 (0.2-1.3) mg/dL AST 26 (15-59) U/L ALT 47 (7-56) U/L Alkaline Phosphatase 63 (38-133) U/L Total Protein 4.8 L (5.8-8.3) g/dL Albumin 2.1 L (3.0-4.8) g/dL Globulin 2.6 gm/dL Albumin/Globulin Ratio 0.8 L (1.1-1.8) ANCA Screen (NEGATIVE) c-ANCA Titer Proteinase 3 (PR3) (<1.0) AI p-ANCA Titer Atypical p-ANCA Titer Myeloperoxidase Ab (<1.0) AI Babesia microti IgG Ab (()) Babesia microti IgM Ab (()) Babesia Interpretation (()) Mycoplasma pneumon IgG (<=0.90) Mycoplasma pneumon IgM (<770) U/mL BURTON, Poly Interpret (NEGATIVE) Indirect Antiglob Test 08/30/16 08/30/16 08/30/16 Range/Units 21:58 19:05 16:15 WBC 22.5 H (4.5-11.0) 10^3/ul RBC 3.19 L (3.5-6.1) 10^6/uL Hgb 9.6 L (14.0-18.0) gm/dL Hct 28.7 L (42.0-52.0) % MCV 90.0 (80.0-105.0) fL MCH 30.1 (25.0-35.0) pg MCHC 33.4 (31.0-37.0) g/dl RDW 16.4 H (11.5-14.5) % Plt Count 255 (120.0-450.0) 10^3/uL MPV 13.5 H (7.0-11.0) fl Gran % 89.5 H (50.0-68.0) % Lymph % (Auto) 3.5 L (22.0-35.0) % [place] % (Auto) 6.0 (1.0-6.0) % Eos % (Auto) 1.0 L (1.5-5.0) % Baso % (Auto) 0.0 (0.0-3.0) % Gran # 20.13 H (1.4-6.5) Lymph # 0.8 L (1.2-3.4) [place] # 1.3 H (0.1-0.6) Eos # 0.2 (0.0-0.7) Baso # 0.01 (0.0-2.0) K/mm3 PT 14.7 H (9.9-11.8) Seconds INR 1.36 H (0.93-1.08) APTT 105.5 H* (23.7-30.8) Seconds pCO2 (35-45) mm/Hg pO2 (80-100) mm/Hg HCO3 (21-28) mmol/L ABG pH (7.35-7.45) ABG Total CO2 (22-28) mmol.L ABG O2 Saturation (95-98) % ABG O2 Content (15-23) ML/dl ABG Base Excess (-2.0-3.0) mmol/L ABG Hemoglobin (11.7-17.4) g/dL ABG Carboxyhemoglobin (0.5-1.5) % POC ABG HHb (Measured) (0-5) % ABG Methemoglobin (0.0-3.0) % ABG O2 Capacity (16-24) mL/dl Hgb O2 Saturation (95.0-98.0) % FiO2 % Sodium 142 (132-148) mmol/L Potassium 4.0 (3.6-5.0) mmol/L Chloride 115 H (95-110) mmol/L Carbon Dioxide 15 L (21-33) mmol/L Anion Gap 16 (10-20) BUN 107 H (7-21) mg/dL Creatinine 5.5 H (0.5-1.4) mg/dL Est GFR ( Amer) 12 Est GFR (Non-Af Amer) 10 POC Glucose (mg/dL) 135 H 213 H (65-110) mg/dL Random Glucose 148 H (70-110) mg/dL Calcium 7.4 L (8.4-10.5) mg/dL Phosphorus 7.4 H (2.5-4.5) mg/dL Magnesium 2.1 (1.7-2.2) mg/dL Total Bilirubin 0.7 (0.2-1.3) mg/dL AST 19 (15-59) U/L ALT 47 (7-56) U/L Alkaline Phosphatase 53 (38-133) U/L Total Protein 4.3 L (5.8-8.3) g/dL Albumin 1.9 L (3.0-4.8) g/dL Globulin 2.4 gm/dL Albumin/Globulin Ratio 0.8 L (1.1-1.8) ANCA Screen (NEGATIVE) c-ANCA Titer Proteinase 3 (PR3) (<1.0) AI p-ANCA Titer Atypical p-ANCA Titer Myeloperoxidase Ab (<1.0) AI Babesia microti IgG Ab (()) Babesia microti IgM Ab (()) Babesia Interpretation (()) Mycoplasma pneumon IgG (<=0.90) Mycoplasma pneumon IgM (<770) U/mL BURTON, Poly Interpret (NEGATIVE) Indirect Antiglob Test 08/30/16 08/30/16 08/30/16 Range/Units 15:52 11:15 07:33 WBC (4.5-11.0) 10^3/ul RBC (3.5-6.1) 10^6/uL Hgb (14.0-18.0) gm/dL Hct (42.0-52.0) % MCV (80.0-105.0) fL MCH (25.0-35.0) pg MCHC (31.0-37.0) g/dl RDW (11.5-14.5) % Plt Count (120.0-450.0) 10^3/uL MPV (7.0-11.0) fl Gran % (50.0-68.0) % Lymph % (Auto) (22.0-35.0) % [place] % (Auto) (1.0-6.0) % Eos % (Auto) (1.5-5.0) % Baso % (Auto) (0.0-3.0) % Gran # (1.4-6.5) Lymph # (1.2-3.4) [place] # (0.1-0.6) Eos # (0.0-0.7) Baso # (0.0-2.0) K/mm3 PT 14.4 H (9.9-11.8) Seconds INR 1.33 H (0.93-1.08) APTT 39.4 H (23.7-30.8) Seconds pCO2 (35-45) mm/Hg pO2 (80-100) mm/Hg HCO3 (21-28) mmol/L ABG pH (7.35-7.45) ABG Total CO2 (22-28) mmol.L ABG O2 Saturation (95-98) % ABG O2 Content (15-23) ML/dl ABG Base Excess (-2.0-3.0) mmol/L ABG Hemoglobin (11.7-17.4) g/dL ABG Carboxyhemoglobin (0.5-1.5) % POC ABG HHb (Measured) (0-5) % ABG Methemoglobin (0.0-3.0) % ABG O2 Capacity (16-24) mL/dl Hgb O2 Saturation (95.0-98.0) % FiO2 % Sodium (132-148) mmol/L Potassium (3.6-5.0) mmol/L Chloride (95-110) mmol/L Carbon Dioxide (21-33) mmol/L Anion Gap (10-20) BUN (7-21) mg/dL Creatinine (0.5-1.4) mg/dL Est GFR ( Amer) Est GFR (Non-Af Amer) POC Glucose (mg/dL) 183 H 171 H (65-110) mg/dL Random Glucose (70-110) mg/dL Calcium (8.4-10.5) mg/dL Phosphorus (2.5-4.5) mg/dL Magnesium (1.7-2.2) mg/dL Total Bilirubin (0.2-1.3) mg/dL AST (15-59) U/L ALT (7-56) U/L Alkaline Phosphatase (38-133) U/L Total Protein (5.8-8.3) g/dL Albumin (3.0-4.8) g/dL Globulin gm/dL Albumin/Globulin Ratio (1.1-1.8) ANCA Screen (NEGATIVE) c-ANCA Titer Proteinase 3 (PR3) (<1.0) AI p-ANCA Titer Atypical p-ANCA Titer Myeloperoxidase Ab (<1.0) AI Babesia microti IgG Ab (()) Babesia microti IgM Ab (()) Babesia Interpretation (()) Mycoplasma pneumon IgG (<=0.90) Mycoplasma pneumon IgM (<770) U/mL BURTON, Poly Interpret (NEGATIVE) Indirect Antiglob Test 08/29/16 08/29/16 08/28/16 Range/Units 21:25 15:58 18:00 WBC (4.5-11.0) 10^3/ul RBC (3.5-6.1) 10^6/uL Hgb (14.0-18.0) gm/dL Hct (42.0-52.0) % MCV (80.0-105.0) fL MCH (25.0-35.0) pg MCHC (31.0-37.0) g/dl RDW (11.5-14.5) % Plt Count (120.0-450.0) 10^3/uL MPV (7.0-11.0) fl Gran % (50.0-68.0) % Lymph % (Auto) (22.0-35.0) % [place] % (Auto) (1.0-6.0) % Eos % (Auto) (1.5-5.0) % Baso % (Auto) (0.0-3.0) % Gran # (1.4-6.5) Lymph # (1.2-3.4) [place] # (0.1-0.6) Eos # (0.0-0.7) Baso # (0.0-2.0) K/mm3 PT (9.9-11.8) Seconds INR (0.93-1.08) APTT (23.7-30.8) Seconds pCO2 (35-45) mm/Hg pO2 (80-100) mm/Hg HCO3 (21-28) mmol/L ABG pH (7.35-7.45) ABG Total CO2 (22-28) mmol.L ABG O2 Saturation (95-98) % ABG O2 Content (15-23) ML/dl ABG Base Excess (-2.0-3.0) mmol/L ABG Hemoglobin (11.7-17.4) g/dL ABG Carboxyhemoglobin (0.5-1.5) % POC ABG HHb (Measured) (0-5) % ABG Methemoglobin (0.0-3.0) % ABG O2 Capacity (16-24) mL/dl Hgb O2 Saturation (95.0-98.0) % FiO2 % Sodium (132-148) mmol/L Potassium (3.6-5.0) mmol/L Chloride (95-110) mmol/L Carbon Dioxide (21-33) mmol/L Anion Gap (10-20) BUN (7-21) mg/dL Creatinine (0.5-1.4) mg/dL Est GFR ( Amer) Est GFR (Non-Af Amer) POC Glucose (mg/dL) 179 H 150 H (65-110) mg/dL Random Glucose (70-110) mg/dL Calcium (8.4-10.5) mg/dL Phosphorus (2.5-4.5) mg/dL Magnesium (1.7-2.2) mg/dL Total Bilirubin (0.2-1.3) mg/dL AST (15-59) U/L ALT (7-56) U/L Alkaline Phosphatase (38-133) U/L Total Protein (5.8-8.3) g/dL Albumin (3.0-4.8) g/dL Globulin gm/dL Albumin/Globulin Ratio (1.1-1.8) ANCA Screen (NEGATIVE) c-ANCA Titer Proteinase 3 (PR3) (<1.0) AI p-ANCA Titer Atypical p-ANCA Titer Myeloperoxidase Ab (<1.0) AI Babesia microti IgG Ab (()) Babesia microti IgM Ab (()) Babesia Interpretation (()) Mycoplasma pneumon IgG (<=0.90) Mycoplasma pneumon IgM (<770) U/mL BURTON, Poly Interpret Negative (NEGATIVE) Indirect Antiglob Test 08/27/16 08/27/16 Range/Units 10:31 09:45 WBC (4.5-11.0) 10^3/ul RBC (3.5-6.1) 10^6/uL Hgb (14.0-18.0) gm/dL Hct (42.0-52.0) % MCV (80.0-105.0) fL MCH (25.0-35.0) pg MCHC (31.0-37.0) g/dl RDW (11.5-14.5) % Plt Count (120.0-450.0) 10^3/uL MPV (7.0-11.0) fl Gran % (50.0-68.0) % Lymph % (Auto) (22.0-35.0) % [place] % (Auto) (1.0-6.0) % Eos % (Auto) (1.5-5.0) % Baso % (Auto) (0.0-3.0) % Gran # (1.4-6.5) Lymph # (1.2-3.4) [place] # (0.1-0.6) Eos # (0.0-0.7) Baso # (0.0-2.0) K/mm3 PT (9.9-11.8) Seconds INR (0.93-1.08) APTT (23.7-30.8) Seconds pCO2 (35-45) mm/Hg pO2 (80-100) mm/Hg HCO3 (21-28) mmol/L ABG pH (7.35-7.45) ABG Total CO2 (22-28) mmol.L ABG O2 Saturation (95-98) % ABG O2 Content (15-23) ML/dl ABG Base Excess (-2.0-3.0) mmol/L ABG Hemoglobin (11.7-17.4) g/dL ABG Carboxyhemoglobin (0.5-1.5) % POC ABG HHb (Measured) (0-5) % ABG Methemoglobin (0.0-3.0) % ABG O2 Capacity (16-24) mL/dl Hgb O2 Saturation (95.0-98.0) % FiO2 % Sodium (132-148) mmol/L Potassium (3.6-5.0) mmol/L Chloride (95-110) mmol/L Carbon Dioxide (21-33) mmol/L Anion Gap (10-20) BUN (7-21) mg/dL Creatinine (0.5-1.4) mg/dL Est GFR ( Amer) Est GFR (Non-Af Amer) POC Glucose (mg/dL) (65-110) mg/dL Random Glucose (70-110) mg/dL Calcium (8.4-10.5) mg/dL Phosphorus (2.5-4.5) mg/dL Magnesium (1.7-2.2) mg/dL Total Bilirubin (0.2-1.3) mg/dL AST (15-59) U/L ALT (7-56) U/L Alkaline Phosphatase (38-133) U/L Total Protein (5.8-8.3) g/dL Albumin (3.0-4.8) g/dL Globulin gm/dL Albumin/Globulin Ratio (1.1-1.8) ANCA Screen Negative (NEGATIVE) c-ANCA Titer TNP Proteinase 3 (PR3) <1.0 (<1.0) AI p-ANCA Titer TNP Atypical p-ANCA Titer TNP Myeloperoxidase Ab <1.0 (<1.0) AI Babesia microti IgG Ab <1:64 (()) Babesia microti IgM Ab <1:20 (()) Babesia Interpretation See note (()) Mycoplasma pneumon IgG 1.00 H (<=0.90) Mycoplasma pneumon IgM 44 (<770) U/mL BURTON, Poly Interpret (NEGATIVE) Indirect Antiglob Test Laboratory Results - last 24 hr 08/27/16 08/27/16 08/28/16 09:45 10:31 18:00 WBC RBC Hgb Hct MCV MCH MCHC RDW Plt Count MPV Gran % Lymph % (Auto) [place] % (Auto) Eos % (Auto) Baso % (Auto) Gran # Lymph # [place] # Eos # Baso # PT INR APTT pCO2 pO2 HCO3 ABG pH ABG Total CO2 ABG O2 Saturation ABG O2 Content ABG Base Excess ABG Hemoglobin ABG Carboxyhemoglobin POC ABG HHb (Measured) ABG Methemoglobin ABG O2 Capacity Hgb O2 Saturation FiO2 Sodium Potassium Chloride Carbon Dioxide Anion Gap BUN Creatinine Est GFR ( Amer) Est GFR (Non-Af Amer) POC Glucose (mg/dL) Random Glucose Calcium Phosphorus Magnesium Total Bilirubin AST ALT Alkaline Phosphatase Total Protein Albumin Globulin Albumin/Globulin Ratio ANCA Screen Negative c-ANCA Titer TNP Proteinase 3 (PR3) <1.0 p-ANCA Titer TNP Atypical p-ANCA Titer TNP Myeloperoxidase Ab <1.0 Babesia microti IgG Ab <1:64 Babesia microti IgM Ab <1:20 Babesia Interpretation See note Mycoplasma pneumon IgG 1.00 H Mycoplasma pneumon IgM 44 BURTON, Poly Interpret Negative Indirect Antiglob Test 08/29/16 08/29/16 08/30/16 15:58 21:25 07:33 WBC RBC Hgb Hct MCV MCH MCHC RDW Plt Count MPV Gran % Lymph % (Auto) [place] % (Auto) Eos % (Auto) Baso % (Auto) Gran # Lymph # [place] # Eos # Baso # PT INR APTT pCO2 pO2 HCO3 ABG pH ABG Total CO2 ABG O2 Saturation ABG O2 Content ABG Base Excess ABG Hemoglobin ABG Carboxyhemoglobin POC ABG HHb (Measured) ABG Methemoglobin ABG O2 Capacity Hgb O2 Saturation FiO2 Sodium Potassium Chloride Carbon Dioxide Anion Gap BUN Creatinine Est GFR ( Amer) Est GFR (Non-Af Amer) POC Glucose (mg/dL) 150 H 179 H 171 H Random Glucose Calcium Phosphorus Magnesium Total Bilirubin AST ALT Alkaline Phosphatase Total Protein Albumin Globulin Albumin/Globulin Ratio ANCA Screen c-ANCA Titer Proteinase 3 (PR3) p-ANCA Titer Atypical p-ANCA Titer Myeloperoxidase Ab Babesia microti IgG Ab Babesia microti IgM Ab Babesia Interpretation Mycoplasma pneumon IgG Mycoplasma pneumon IgM BURTON, Poly Interpret Indirect Antiglob Test 08/30/16 08/30/16 08/30/16 11:15 15:52 16:15 WBC RBC Hgb Hct MCV MCH MCHC RDW Plt Count MPV Gran % Lymph % (Auto) [place] % (Auto) Eos % (Auto) Baso % (Auto) Gran # Lymph # [place] # Eos # Baso # PT 14.4 H INR 1.33 H APTT 39.4 H pCO2 pO2 HCO3 ABG pH ABG Total CO2 ABG O2 Saturation ABG O2 Content ABG Base Excess ABG Hemoglobin ABG Carboxyhemoglobin POC ABG HHb (Measured) ABG Methemoglobin ABG O2 Capacity Hgb O2 Saturation FiO2 Sodium Potassium Chloride Carbon Dioxide Anion Gap BUN Creatinine Est GFR ( Amer) Est GFR (Non-Af Amer) POC Glucose (mg/dL) 183 H 213 H Random Glucose Calcium Phosphorus Magnesium Total Bilirubin AST ALT Alkaline Phosphatase Total Protein Albumin Globulin Albumin/Globulin Ratio ANCA Screen c-ANCA Titer Proteinase 3 (PR3) p-ANCA Titer Atypical p-ANCA Titer Myeloperoxidase Ab Babesia microti IgG Ab Babesia microti IgM Ab Babesia Interpretation Mycoplasma pneumon IgG Mycoplasma pneumon IgM BURTON, Poly Interpret Indirect Antiglob Test 08/30/16 08/30/16 08/31/16 19:05 21:58 05:20 WBC 22.5 H 28.0 H* D RBC 3.19 L 3.34 L Hgb 9.6 L 10.1 L Hct 28.7 L 29.7 L MCV 90.0 88.9 MCH 30.1 30.2 MCHC 33.4 34.0 RDW 16.4 H 16.5 H Plt Count 255 291 MPV 13.5 H 13.8 H Gran % 89.5 H 91.9 H Lymph % (Auto) 3.5 L 2.0 L [place] % (Auto) 6.0 5.7 Eos % (Auto) 1.0 L 0.3 L Baso % (Auto) 0.0 0.1 Gran # 20.13 H 25.72 H Lymph # 0.8 L 0.6 L [place] # 1.3 H 1.6 H Eos # 0.2 0.1 Baso # 0.01 0.02 PT 14.7 H INR 1.36 H APTT 105.5 H* 41.8 H pCO2 pO2 HCO3 ABG pH ABG Total CO2 ABG O2 Saturation ABG O2 Content ABG Base Excess ABG Hemoglobin ABG Carboxyhemoglobin POC ABG HHb (Measured) ABG Methemoglobin ABG O2 Capacity Hgb O2 Saturation FiO2 Sodium 142 144 Potassium 4.0 3.8 Chloride 115 H 115 H Carbon Dioxide 15 L 12 L Anion Gap 16 21 H BUN 107 H 112 H Creatinine 5.5 H 5.7 H Est GFR ( Amer) 12 12 Est GFR (Non-Af Amer) 10 10 POC Glucose (mg/dL) 135 H Random Glucose 148 H 129 H Calcium 7.4 L 7.7 L Phosphorus 7.4 H 7.1 H Magnesium 2.1 2.1 Total Bilirubin 0.7 0.6 AST 19 26 ALT 47 47 Alkaline Phosphatase 53 63 Total Protein 4.3 L 4.8 L Albumin 1.9 L 2.1 L Globulin 2.4 2.6 Albumin/Globulin Ratio 0.8 L 0.8 L ANCA Screen c-ANCA Titer Proteinase 3 (PR3) p-ANCA Titer Atypical p-ANCA Titer Myeloperoxidase Ab Babesia microti IgG Ab Babesia microti IgM Ab Babesia Interpretation Mycoplasma pneumon IgG Mycoplasma pneumon IgM BURTON, Poly Interpret Indirect Antiglob Test 08/31/16 08/31/16 05:55 07:18 WBC RBC Hgb Hct MCV MCH MCHC RDW Plt Count MPV Gran % Lymph % (Auto) [place] % (Auto) Eos % (Auto) Baso % (Auto) Gran # Lymph # [place] # Eos # Baso # PT INR APTT pCO2 22 L pO2 59.0 L HCO3 10.3 L ABG pH 7.28 L ABG Total CO2 11.0 L ABG O2 Saturation 92.3 L ABG O2 Content 12.6 L ABG Base Excess -14.7 L ABG Hemoglobin 10.0 L ABG Carboxyhemoglobin 2.4 H POC ABG HHb (Measured) 7.4 H ABG Methemoglobin 1.1 ABG O2 Capacity 13.7 L Hgb O2 Saturation 89.2 L FiO2 32.0 Sodium Potassium Chloride Carbon Dioxide Anion Gap BUN Creatinine Est GFR ( Amer) Est GFR (Non-Af Amer) POC Glucose (mg/dL) 161 H Random Glucose Calcium Phosphorus Magnesium Total Bilirubin AST ALT Alkaline Phosphatase Total Protein Albumin Globulin Albumin/Globulin Ratio ANCA Screen c-ANCA Titer Proteinase 3 (PR3) p-ANCA Titer Atypical p-ANCA Titer Myeloperoxidase Ab Babesia microti IgG Ab Babesia microti IgM Ab Babesia Interpretation Mycoplasma pneumon IgG Mycoplasma pneumon IgM BURTON, Poly Interpret Indirect Antiglob Test EKG/Cardiology Studies: Cardiology / EKG Studies 08/31/16 07:12 EKG [ELECTROCARDIOGRAM] Stat Comment: Reason For Exam: tachy Attending/Attestation - Attestation I have personally seen and examined this patient.: Yes I have fully participated in the care of the patient.: Yes I have reviewed all pertinent clinical information: Yes Notes (Text): 08/31/16 08:34 81 y/o M w/ Cardio-Renal syndrome Acute respiratory failure secondary to Hypoxia, increased WOB and fluid overload AG metabolic acidosis noted with worsening renal failure. 140mg of lasix given yesterday with moderate urine output. Passed SBT trial and was extubated . High likelyhood of re-intubation due to increased volume and pulmonary edema Family meeting with palliative care about dialysis initiation. GI- bleed resolved, HGb stable. ACS NSTEMI- Restarted on Heparin drip and possible chance of cardiac cath if Dialysis is started due to the dye load. Elevated WBC although trending down, no sign of infection noted with cx negative on empiric abx. I.D following. Pt remains critical. cc time 65 min
--- NOTE | 2016-08-30 14:57 | CP.PCM.PN ---
Subjective - Date & Time of Evaluation Date of Evaluation: 08/30/16 Time of Evaluation: 08:50 - Subjective Subjective: Remains intubated and sedated. Afebrile overnight. Objective - Vital Signs/Intake and Output Vital Signs (last 24 hours): Temp Pulse Resp BP Pulse Ox 97.3 F L 65 15 99/46 L 100 08/30/16 07:35 08/30/16 13:30 08/30/16 13:30 08/30/16 13:30 08/30/16 13:30 Intake and Output: 08/30/16 08/30/16 06:59 18:59 Intake Total 559 Output Total 1100 Balance -541 - Medications Medications: Current Medications Acetaminophen (Tylenol 650 Mg Supp) 650 mg RC Q4H PRN PRN Reason: Fever >100.4 F Arformoterol Tartrate (Brovana) 15 mcg IH [id number] [facility] Last Admin: 08/30/16 08:04 Dose: 15 mcg Aspirin (Ecotrin) 81 mg PO DAILY [facility] Last Admin: 08/30/16 10:53 Dose: 81 mg Budesonide (Pulmicort Respules) 0.5 mg IH [id number] [facility] Last Admin: 08/30/16 08:04 Dose: 0.5 mg Clopidogrel Bisulfate (Plavix) 75 mg NG DAILY [facility] Last Admin: 08/30/16 10:53 Dose: 75 mg Furosemide (Lasix) 40 mg IVP Q12 [facility] Last Admin: 08/30/16 10:53 Dose: Not Given Metronidazole (Flagyl) 100 mls @ 100 mls/hr IVPB Q8 [facility] PRN Reason: Protocol Last Admin: 08/30/16 05:28 Dose: 100 mls/hr Doxycycline Hyclate 100 mg/ (Sodium Chloride) 100 mls @ 100 mls/hr IVPB Q12 [facility] PRN Reason: Protocol Stop: 09/10/16 10:01 Last Admin: 08/30/16 10:53 Dose: 100 mls/hr Cefepime HCl (Maxipime 1gm) 100 mls @ 100 mls/hr IVPB Q24H [facility] PRN Reason: Protocol Stop: 09/05/16 15:16 Last Admin: 08/29/16 16:20 Dose: 100 mls/hr Insulin Human Lispro (Humalog Low) 0 units SC ACHS [facility] PRN Reason: Protocol Last Admin: 08/30/16 08:12 Dose: 1 units Metoprolol Tartrate (Lopressor) 5 mg IVP Q6H [facility] Last Admin: 08/30/16 08:12 Dose: 5 mg Pantoprazole Sodium (Protonix Inj) 40 mg IVP Q12 [facility] Last Admin: 08/30/16 10:53 Dose: 40 mg - Labs Labs: 08/30/16 05:50 08/30/16 05:50 PT 13.5 Seconds (9.9-11.8) H 08/30/16 05:50 INR 1.25 (0.93-1.08) H 08/30/16 05:50 APTT 37.1 Seconds (23.7-30.8) H 08/30/16 05:50 - Constitutional Appears: Other (Intubated and sedated, poorly responsive) - Head Exam Head Exam: NORMAL INSPECTION - ENT Exam Additional comments: ET tube in place - Neck Exam Neck Exam: absent: Lymphadenopathy, Meningismus - Respiratory Exam Respiratory Exam: Decreased Breath Sounds - Cardiovascular Exam Cardiovascular Exam: +S1, +S2 - GI/Abdominal Exam GI & Abdominal Exam: Soft. absent: Tenderness Assessment and Plan - Assessment and Plan (Free Text) Plan: Assessment Severe sepsis with hypoxic and ventilator-dependent respiratory failure probably secondary to community-acquired pneumonia R/O aspiration pneumonitis in a patient with acute on chronic renal failure and lactic acidosis as well as possible non-ST elevation myocardial infarction with acute CHF Anemia R/O hemolysis Chronic renal failure history of cerebrovascular accident S/O left carotid endarterectomy history of immune-thrombocytopenic purpura BPH CAD Plan Continue Cefepime, Doxycycline and Flagyl pending final cx results (day 4), to complete 4-7 days of therapy Follow up Babesia tests; Mycoplasma IgM negative; urine Legionella Ag is negative Will continue to follow clinically Overall prognosis is poor
--- NOTE | 2016-08-30 15:36 | PN ---
DATE: 08/30/2016 REFERRING PHYSICIAN: Dr. Myers SUBJECTIVE: He is extubated, on nasal canula. Family is at bedside. Still has some cough and sputu m production. Sleepy, arousable. No chest pain. No abdominal pain. No hematochezia or melena. No leg swelling. OBJECTIVE: GENERAL: No acute distress. VITAL SIGNS: Temp is 98, heart rate 65, respiratory rate is 20, blood pressure 112/46, pulse ox 95% on nasal cannula. HEENT: Moist mucous membranes. Crowded airway. Mallampati score is 4. NECK: Supple. No JVD. LUNGS: Has crackles one-third up. HEART: S1 and S2. ABDOMEN: Soft, nontender, nondistended. EXTREMITIES: Not much edema. NEUROLOGIC: Sleepy, arousable, follows simple command. MEDICATIONS: He is on Brovana 15 mcg inhaled twice a day, doxycycline 100 mg twice a day, Ecotrin 81 mg daily, Flagyl 500 mg q.8 hours, Lasix 40 mg IV q.12 hours, metoprolol tartrate 5 mg IV q.6 hours, cefepime 1 gram q.24 hours, Plavix 75 mg daily, Protonix 40 mg q.12 hours, Pulmicort inhaled twice a day, Tylenol p.r.n. basis. LABORATORY DATA: Shows hemoglobin 9.7, hematocrit 29.0, WBC of 23.6, platelet is 253. INR 1.25. PT T is 37. Blood gases this morning show pH of 7.29, pCO2 of 26, O2 of 111. Sodium 143, potassium 3.9 , chloride 112, bicarbonate is 16, BUN 103, creatinine 5.4, glucose 155, calcium 7.4, phosphorus 6.7. AST 25, ALT 52, alk phos is 65. LDH is 1218. Troponin is 26. Albumin is 1.9. Microbiology: Blo od cultures and sputum culture, so far there is no growth. Chest x-ray done this morning shows impro juan c vascular congestion with perihilar infiltrate, right greater than the left. IMPRESSION AND PLAN: Status post hemorrhagic shock, has a peptic ulcer last EGD non bleeding. Jeremy frias has a component of aspiration pneumonia, cardiomyopathy with pulmonary edema, renal failure. Pre sently extubated. May have a component of sleep apnea syndrome. He has coronary artery disease, met abolic acidosis second to renal failure. I spoke to family at bedside. All the questions answered. We will write bilevel positive airway pressure order, 04/19 while sleeping with 35% oxygen. Keep hea d elevated at 45 degrees. Aspiration precaution. Speech therapy evaluation. Continue diuretics. F ollow up renal function. Can this leslie benefit from dobutamine intravenous to improve his renal funct ion and clear his edema? Will speak to cardiology. Followup labs in the morning. Thank you and we will follow with you. Shawn Ruff MD cc: [id number] TT: 08/30/2016 15:36:02 Confirmation # [id number] Dictation # [id number]
[2016-08-30] MEDS: Cefepime 1gm in NS 100ml 100 ML IVPB SCH (15:42)
[2016-08-30] MEDS ORDERED: Heparin25000 units/250ml 1/2NS 250 ML IV SCH (15:45)
[2016-08-30 16:13] LABS: INR 1.33 (0.93-1.08); PARTIAL THROMBOPLASTIN TIME 39.4 Seconds (23.7-30.8)
[2016-08-30] MEDS ORDERED: Sodium Chloride 0.9% 500 ML IV STA (16:18)
[2016-08-30 18:28] LABS: BABESIOSIS AB IGG <1:64 (()); BABESIOSIS AB IGM <1:20 (())
[2016-08-30 19:06] LABS: ADD MANUAL DIFF? NO
[2016-08-30 19:08] LABS: BASO # 0.01 [, K/mm3] (0.0-2.0); EOS # 0.2 (0.0-0.7); GRAN # 20.13 (1.4-6.5); GRAN % 89.5 % (50.0-68.0); HEMATOCRIT 28.7 % (42.0-52.0); LYMPH # 0.8 (1.2-3.4); LYMPH % 3.5 % (22.0-35.0); MEAN CORPUSCULAR HEMOGLOBIN 30.1 pg (25.0-35.0); MEAN CORPUSCULAR HGB CONC 33.4 g/dl (31.0-37.0); MEAN PLATELET VOLUME 13.5 fl (7.0-11.0); MONO # 1.3 (0.1-0.6); PLATELET COUNT 255 [, 10^3/uL] (120.0-450.0); RED CELL DISTRIBUTION WIDTH 16.4 % (11.5-14.5); WHITE BLOOD COUNT 22.5 [, 10^3/ul] (4.5-11.0)
[2016-08-30 19:19] LABS: ALB/GLOB RATIO 0.8 (1.1-1.8); BILIRUBIN,TOTAL 0.7 mg/dL (0.2-1.3); CALCIUM 7.4 mg/dL (8.4-10.5); MAGNESIUM 2.1 mg/dL (1.7-2.2); PHOSPHOROUS 7.4 mg/dL (2.5-4.5); TOTAL PROTEIN 4.3 g/dL (5.8-8.3)
[2016-08-30 19:44] LABS: INR 1.36 (0.93-1.08)
[2016-08-30 19:46] LABS: PARTIAL THROMBOPLASTIN TIME 105.5 Seconds (23.7-30.8)
[2016-08-30] MEDS ORDERED: Tetrahydrozoline Opht 0.05% Sol (15 ml) OU PRN (21:02)
--- NOTE | 2016-08-30 23:50 | PN ---
DATE: 08/30/2016 SUBJECTIVE: This patient was seen and evaluated earlier. Discussed with residents and ICU staff. T he patient now extubated. PHYSICAL EXAMINATION: VITAL SIGNS: Temperature is 97.6, pulse 60, blood pressure 102/49 HEENT: Atraumatic, anicteric. NECK: Supple. HEART: S1, S2 heard. LUNGS: Bilateral air entry present. ABDOMEN: Soft. There is some tenderness. EXTREMITIES: Pneumatic compressions present. LABORATORY DATA: Hemoglobin 9.6, hematocrit 28.7, WBC 22.5, platelets 255, BUN 107, creatinine 5.5. IMPRESSION: This 81-year-old patient was admitted with gastrointestinal bleeding and also complicate d by his myocardial infarction, sepsis. The patient was intubated and he is extubated now. Did not have any swallowing evaluation. evaluation again. The patient appears lethargic. The patient earlier had a black stool in the bowel movement. The hemoglobin appears to be stable. On Protonix. The patient was also on aspirin and Plavix. The patient has gastric ulcers and the patient will be restarted on aspirin, Plavix and patient is presently on cefepime and Flagyl. The patient is presen tly on doxycycline antibiotics. The patient's stool for C. diff is negative. Overall, his hemoglobi n has remained stable. Presently on Protonix 40 mg q. 12 hourly. The patient has an acute kidney in jury on top of chronic kidney disease. Will continue to follow with him closely and follow up the he moglobin and hematocrit. We will consider reducing the dose of Protonix from every 12 to daily in vi ew of his renal function. Thank you for allowing me to participate in the care of this patient. Eleonora Dillard MD cc: [id number] TT: 08/30/2016 23:49:42 Confirmation # [id number] Dictation # [id number] isis
--- NOTE | 2016-08-31 00:19 | PN ---
DATE: 08/30/2016 SUBJECTIVE: The patient is seen in the ICU. He is lying in bed. He was extubated earlier today. He is groggy. His urine output in the last 24 hours was 1700. He received 40 mg of Lasix b.i.d. He also received an extra 100 mg of Lasix. Subsequently dropped his blood pressure, but it improved later. PHYSICAL EXAMINATION: GENERAL: Elderly male lying in bed. VITAL SIGNS: Blood pressure 122/49, heart rate 60, respiratory rate 14-18, temperature 97.6. HEENT: Normocephalic, atraumatic, positive pallor. NECK: Supple, no JVD. LUNGS: Bilateral equal air entry, decreased breath sounds at bases. CARDIAC: S1, S2, regular rate and rhythm, no murmur, no rub. ABDOMEN: Soft, distended, positive tenderness in the epigastrium. EXTREMITIES: No lower extremity edema. INTAKE AND OUTPUT: 1119/1700. LABORATORY DATA: WBC 22.5, hemoglobin 9.6, hematocrit 28.7, platelets 255. Sodium 142, potassium 4.0, chloride 115, CO2 15, BUN 107, creatinine 5.5, glucose 148, calcium 7.4, phosphorus 7.4, albumin 1.9, corrected calcium is 8.7. Blood cultures: No growth so far. CURRENT MEDICATIONS: Brovana, doxycycline 100 q. 12, Ecotrin, Flagyl 250 IV q. 8, heparin IV, insulin, Lasix 40 IV q. 12, Lopressor, cefepime, Plavix 75, Protonix, Pulmicort, Tylenol. ASSESSMENT AND PLAN: Gastrointestinal bleed, severe anemia, hypotension, acute kidney injury, [id number] myocardial infarction, sepsis, leukocytosis. Improvement in respiratory failure. The patient was successfully extubated today. He is diuresing well with Lasix. His acute kidney injury seems to have plateaued. There is mild worsening of the renal function. In light of his non- ST-elevation myocardial infarction and cardiac decompensation, decreased ejection fraction, his acute kidney injury is multifactorial. Prerenal azotemia in the setting of sepsis, dehydration, gastrointestinal bleed, plus acute tubular necrosis, in the setting of cardiac failure. Long discussion with ICU staff. The patient's family is still deciding about dialysis. Continue current management for the time being. Continue supportive care. Will continue to follow closely. Aundrea Alcazar MD cc: [id number] TT: 08/31/2016 00:18:49 Confirmation # [id number] Dictation # [id number] dn MILDRED
--- NOTE | 2016-08-31 01:53 | CP.PCM.PN ---
Subjective - Date & Time of Evaluation Date of Evaluation: 08/30/16 Time of Evaluation: 20:00 - Subjective Subjective: Slurred speech, family at bedside Objective - Vital Signs/Intake and Output Vital Signs (last 24 hours): Temp Pulse Resp BP Pulse Ox 97.7 F 106 H 15 103/50 L 100 08/31/16 00:00 08/31/16 00:00 08/31/16 00:00 08/31/16 00:00 08/31/16 00:00 Intake and Output: 08/30/16 08/31/16 18:59 06:59 Intake Total 400 Output Total 800 Balance -400 - Medications Medications: Current Medications Acetaminophen (Tylenol 650 Mg Supp) 650 mg RC Q4H PRN PRN Reason: Fever >100.4 F Arformoterol Tartrate (Brovana) 15 mcg IH [id number] [facility] Last Admin: 08/30/16 19:38 Dose: 15 mcg Aspirin (Ecotrin) 81 mg PO DAILY [facility] Last Admin: 08/30/16 10:53 Dose: 81 mg Budesonide (Pulmicort Respules) 0.5 mg IH [id number] [facility] Last Admin: 08/30/16 19:38 Dose: 0.5 mg Clopidogrel Bisulfate (Plavix) 75 mg NG DAILY [facility] Last Admin: 08/30/16 10:53 Dose: 75 mg Furosemide (Lasix) 40 mg IVP Q12 [facility] Last Admin: 08/30/16 21:28 Dose: 40 mg Metronidazole (Flagyl) 100 mls @ 100 mls/hr IVPB Q8 [facility] PRN Reason: Protocol Last Admin: 08/30/16 21:27 Dose: 100 mls/hr Doxycycline Hyclate 100 mg/ (Sodium Chloride) 100 mls @ 100 mls/hr IVPB Q12 [facility] PRN Reason: Protocol Stop: 09/10/16 10:01 Last Admin: 08/30/16 22:22 Dose: 100 mls/hr Cefepime HCl (Maxipime 1gm) 100 mls @ 100 mls/hr IVPB Q24H [facility] PRN Reason: Protocol Stop: 09/05/16 15:16 Last Admin: 08/30/16 15:42 Dose: 100 mls/hr Heparin Sodium/Sodium Chloride (Heparin 78087 Units/250ml 1/2 Normal Saline) 250 mls @ 8.616 mls/hr IV .Q24H [facility]; 12 UNITS/KG/HR PRN Reason: Protocol Last Titration: 08/30/16 20:49 Dose: 9 units/kg/hr Insulin Human Lispro (Humalog Low) 0 units SC ACHS [facility] PRN Reason: Protocol Last Admin: 08/30/16 22:20 Dose: Not Given Metoprolol Tartrate (Lopressor) 5 mg IVP Q6H [facility] Last Admin: 08/30/16 21:24 Dose: Not Given Pantoprazole Sodium (Protonix Inj) 40 mg IVP Q12 [facility] Last Admin: 08/30/16 21:29 Dose: 40 mg Tetrahydrozoline HCl/Zinc Sulfate (Visine 0.05% Opht Soln) 0 ml OU BID PRN PRN Reason: Dry eyes - Labs Labs: 08/30/16 19:05 08/30/16 19:05 PT 14.7 Seconds (9.9-11.8) H 08/30/16 19:05 INR 1.36 (0.93-1.08) H 08/30/16 19:05 APTT 105.5 Seconds (23.7-30.8) H* 08/30/16 19:05 - Head Exam Head Exam: ATRAUMATIC - Eye Exam Eye Exam: Normal appearance - ENT Exam ENT Exam: Mucous Membranes Dry - Respiratory Exam Respiratory Exam: NORMAL BREATHING PATTERN - GI/Abdominal Exam GI & Abdominal Exam: Normal Bowel Sounds - Extremities Exam Extremities Exam: Pedal Edema Assessment and Plan (1) Anemia Assessment & Plan: GI blood loss; H/H stable anemia of CKD Status: Acute (2) Leukocytosis Assessment & Plan: improving on antibiotics Status: Acute (3) ITP (idiopathic thrombocytopenic purpura) Assessment & Plan: Promacta on hold, plt count remains normal Status: Acute
[2016-08-31] MEDS: Metoprolol 1 mg/ml Inj IVP SCH ×4 (02:31→20:30)
--- NOTE | 2016-08-31 04:24 | PN ---
DATE: 08/30/2016 SUBJECTIVE: The patient is seen and examined on the bedside. He was extubated , still sleepy, arousable, moving all 4 extremities. No fever, no chills. No hematuria or hematochezia. No headache, no dizziness. PHYSICAL EXAMINATION: VITAL SIGNS: Temperature 98, pulse 65, respiratory rate 20, blood pressure 110/ 46, pulse oximetry 95% on nasal cannula. HEENT: Head normocephalic, atraumatic. Eyes: PERRLA. Extraocular movements intact. Conjunctivae pink. Eyelids unremarkable. Nose patent. Mucous membranes moist. NECK: Supple. No carotid bruit, JVD or thyromegaly. CHEST: Bilaterally symmetrical. HEART: S1, S2 positive. LUNGS: Had decreased breath sounds on one side. HEART: S1, S2 positive. ABDOMEN: Soft. No organomegaly. EXTREMITIES: No edema, no cyanosis. NEUROLOGIC: The patient is sleepy, arousable, moving all 4 extremities. MEDICATIONS: Brovana, doxycycline, Ecotrin, Flagyl, Lasix, metoprolol, cefepime , Plavix, Protonix, Pulmicort, Tylenol. LABORATORY DATA: Hemoglobin 9.7, hematocrit 29.0, white blood cells 22.6, platelets 253. INR 1.25. Sodium 143, potassium 3.9, BUN 103, creatinine 5.4, AST 25, ALT 52. Troponin is 26. ASSESSMENT AND PLAN: The patient is an 81-year-old male status post hemorrhagic shock, has peptic ulcer disease, last esophagogastroduodenoscopy , aspiration pneumonia, cardiomyopathy, pulmonary edema, renal failure, presently extubated, sleep apnea syndrome, metabolic acidosis secondary to renal failure. I reviewed Dr. Ruff's notes. He spoke to the family on the bedside. All questions answered. Keep head elevated, aspiration precautions, speech therapy evaluation, continue diuretics. I reviewed Dr. Zurdo Pierce's notes. Severe sepsis with hypoxic and ventilation-dependent respiratory failure probably secondary to community-acquired pneumonia or rule out aspiration pneumonia. The patient with acute on chronic renal failure, possibly non-ST elevated myocardial infarction with acute congestive heart failure, history of cerebrovascular accident, left carotid endarterectomy status post, idiopathic thrombocytopenic purpura, benign prostatic hypertrophy, coronary artery disease. Continue on cefepime and doxycycline , depending on the final culture. Today is day 4. Complete 4-7 days of therapy. A couple of tests ordered by infectious disease, still waiting for the results. Gastrointestinal and deep venous thrombosis prophylaxis. The patient seen by Dr. Bashir Samson. Will also repeat labs. Will follow up. Sana Myers MD cc: [id number] TT: 08/31/2016 04:24:16 Confirmation # [id number] Dictation # [id number] dn MTDD
[2016-08-31 05:29] LABS: BASO # 0.02 [, K/mm3] (0.0-2.0); BASO % 0.1 % (0.0-3.0); EOS # 0.1 (0.0-0.7); EOS % 0.3 % (1.5-5.0); GRAN # 25.72 (1.4-6.5); GRAN % 91.9 % (50.0-68.0); HEMATOCRIT 29.7 % (42.0-52.0); LYMPH # 0.6 (1.2-3.4); MEAN CELL VOLUME 88.9 fL (80.0-105.0); MEAN CORPUSCULAR HEMOGLOBIN 30.2 pg (25.0-35.0); MEAN PLATELET VOLUME 13.8 fl (7.0-11.0); MONO # 1.6 (0.1-0.6); MONO % 5.7 % (1.0-6.0); PLATELET COUNT 291 [, 10^3/uL] (120.0-450.0); RED CELL DISTRIBUTION WIDTH 16.5 % (11.5-14.5)
[2016-08-31 05:45] LABS: ALB/GLOB RATIO 0.8 (1.1-1.8); BILIRUBIN,TOTAL 0.6 mg/dL (0.2-1.3); CALCIUM 7.7 mg/dL (8.4-10.5); MAGNESIUM 2.1 mg/dL (1.7-2.2); PHOSPHOROUS 7.1 mg/dL (2.5-4.5); POTASSIUM 3.8 mmol/L (3.6-5.0); TOTAL PROTEIN 4.8 g/dL (5.8-8.3)
[2016-08-31 06:02] LABS: ARTERIAL BLOOD GAS HCO3 10.3 mmol/L (21-28); ARTERIAL BLOOD GAS O2 CAPACITY 13.7 mL/dl (16-24); ARTERIAL BLOOD GAS O2 CONTENT 12.6 ML/dl (15-23); ARTERIAL BLOOD GAS PH 7.28 (7.35-7.45); ARTERIAL BLOOD HGB O2 SAT 89.2 % (95.0-98.0); CARBOXYHEMOGLOBIN 2.4 % (0.5-1.5); HHB 7.4 % (0-5); METHEMOGLOBIN 1.1 % (0.0-3.0)
[2016-08-31 06:40] LABS: ADD MANUAL DIFF? NO
[2016-08-31] MEDS: metroNIDAZOLE IV 500 mg/100 ml 100 ML IVPB SCH ×3 (06:51→21:39)
[2016-08-31] MEDS: Budesonide 0.5 mg/2 ml Inhal Susp UD IH SCH ×2 (07:06→19:51)
[2016-08-31] MEDS: Arformoterol 15 mcg/2 ml Inh Sol IH SCH ×2 (07:06→19:51)
[2016-08-31] MEDS ORDERED: Sodium Bicarbonate (8.4%) 50 Meq Syringe IVP ONE (07:19)
[2016-08-31] MEDS ORDERED: Sodium Bicarbonate (8.4%) 50 Meq Syringe ONE (07:21)
[2016-08-31] MEDS ORDERED: Amiodarone 150 mg/D5W 100 ml 100 ML IVPB ONE (07:27)
[2016-08-31] MEDS ORDERED: Amiodarone 150 mg/D5W 100 ml 100 ML ONE (07:30)
[2016-08-31] MEDS: Insulin Lispro (humaLOG) LOW Coverage SC SCH ×4 (07:45→21:38)
--- NOTE | 2016-08-31 08:00 | CP.CCUPN ---
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 Restart heparin after shiley insertion. Original Note: <Izabela Luis - Last Filed: 08/31/16 14:29> CCU Subjective - Physician Review Subjective (Free Text): 08/28/16 09:19 Intubated yesterday for abdominal agonal breath. 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, new compared echo 1 year ago 08/30/16 13:53 No Melena overnight CXR - decreased pulm edema with lasix q12 plus 100 IV x 1 HR 60s, BP 100s extubated, on NRB 12L, HR 62, POx 97, BP in high 90s 08/31/16 07:47 Overnight, Got deniz lasix. In addition lopressor x 1 for Sinus tachy at 130s. Bipap at night. This am at A-fib RVR 140s - given bicarb, amiodarone 150 x 1. On amiodarone gtt. Breathing with crackles, pulm suction out pink froths, given 20 Lasix x 1 U/O 200 overnight - oliguric markedly decrease u/o 12/7/35% sat 95 08/31/16 12:47 On high flow, 50L, 40% Finished 2nd bottle of oral contrast for CT abd/pelvis Will go to radiology at 2:30 Shiley placement afterwards HD to be followed. Notified Dr. Alcazar WBC 28, still high today. 1 BM overnight and 1 BM this afternoon, dark bilous. Sent for C diff testing again. CCU Objective - Vital Signs / Intake & Output Vital Signs (Last 4 hours): Vital Signs Temp Pulse Resp BP Pulse Ox 08/31/16 07:44 102/45 L 08/31/16 07:31 143 H 08/31/16 04:30 105 H 18 108/50 L 99 08/31/16 04:00 97.9 F 123 H 17 119/45 L 99 Intake and Output (Last 8hrs): Intake & Output 08/30/16 08/31/16 08/31/16 22:59 06:59 14:59 Intake Total 400 490 Output Total 800 1100 Balance -400 -610 Intake: IV 90 Right Internal Jugular 90 Other 400 400 Output: Urine 800 1100 Urethral (Rodrigez) 800 1100 Other: Voiding Method Indwelling Catheter # Bowel Movements 0 - Physical Exam Head: Positive for: Atraumatic, Normocephalic Pupils: Positive for: PERRL Extroacular Muscles: Positive for: EOMI Conjunctiva: Positive for: Other (conjunctival pallor) Mouth: Positive for: Moist Mucous Membranes Neck: Positive for: MIDLINE TENDERNESS (RIJ in place) Respiratory/Chest: Positive for: Clear to Auscultation, Good Air Exchange, Rales , Rhonchi. Negative for: Respiratory Distress, Accessory Muscle Use, Retracting Cardiovascular: Positive for: Normal S1, S2, Irregular Rhythm, Tachycardic. Negative for: Murmurs Abdomen: Positive for: Normal Bowel Sounds. Negative for: Tenderness, Distention, Peritoneal Signs Rectal: Positive for: Hemorrhoids (external). Negative for: Normal Rectal Tone (dilated rectal tone, soft prostate), Fissures Back: Positive for: Normal Inspection Upper Extremity: Negative for: Edema, Erythema Lower Extremity: Positive for: Edema (2+ Pitting edema of left LE, with long healed scars) Neurological: Negative for: Speech Normal (per son, slurred) Skin: Positive for: Warm, Dry, Normal Color, Abrasion (on left UE). Negative for: Rashes Psychiatric: Positive for: Alert (responsive to son and commands in Arabic) - Medications Active Medications: Active Medications Generic Name Dose Route Start Last Admin Trade Name Freq PRN Reason Stop Dose Admin Acetaminophen 650 mg 04/15/17 16:19 Tylenol 650 Mg Supp RC Q4H PRN Fever >100.4 F Arformoterol Tartrate 15 mcg 08/26/16 20:00 08/31/16 07:06 Brovana IH 15 mcg [id number] DENIZ Administration Aspirin 81 mg 08/29/16 10:00 08/30/16 10:53 Ecotrin PO 81 mg DAILY DENIZ Administration Budesonide 0.5 mg 08/26/16 20:00 08/31/16 07:06 Pulmicort Respules IH 0.5 mg [id number] DENIZ Administration Clopidogrel Bisulfate 75 mg 08/29/16 10:00 08/30/16 10:53 Plavix NG 75 mg DAILY DENIZ Administration Furosemide 40 mg 08/28/16 22:00 08/30/16 21:28 Lasix IVP 40 mg Q12 DENIZ Administration Metronidazole 100 mls @ 100 mls/hr 08/26/16 15:00 08/31/16 06:51 Flagyl IVPB 100 mls/hr Q8 DENIZ Administration Protocol Doxycycline Hyclate 100 mg/ 100 mls @ 100 mls/hr 08/27/16 10:00 08/30/16 22:22 Sodium Chloride IVPB 09/10/16 10:01 100 mls/hr Q12 DENIZ Administration Protocol Cefepime HCl 100 mls @ 100 mls/hr 08/29/16 15:15 08/30/16 15:42 Maxipime 1gm IVPB 09/05/16 15:16 100 mls/hr Q24H DENIZ Administration Protocol Heparin Sodium/Sodium Chloride 250 mls @ 8.616 mls/hr 08/30/16 15:45 08/31/16 07:40 Heparin 72526 Units/250ml 1/2 Normal Saline IV 11 units/kg/hr .Q24H DENIZ Titration Protocol 12 UNITS/KG/HR Insulin Human Lispro 0 units 08/26/16 22:00 08/30/16 22:20 Humalog Low SC Not Given ACHS DENIZ Protocol Metoprolol Tartrate 5 mg 08/29/16 14:00 08/31/16 02:31 Lopressor IVP 5 mg Q6H DENIZ Administration Pantoprazole Sodium 40 mg 08/26/16 22:00 08/30/16 21:29 Protonix Inj IVP 40 mg Q12 DENIZ Administration Tetrahydrozoline HCl/Zinc Sulfate 0 ml 08/30/16 21:02 Visine 0.05% Opht Soln OU BID PRN Dry eyes - Patient Studies Lab Studies: Microbiology Studies 08/27/16 13:53 C. difficile Antigen & Toxin A,B (M - Final Stool 08/27/16 09:45 Blood Culture - Preliminary Blood NO GROWTH AFTER 3 DAYS 08/27/16 09:45 Blood Culture - Preliminary Blood NO GROWTH AFTER 3 DAYS Lab Studies 08/31/16 08/31/16 08/31/16 Range/Units 07:18 05:55 05:20 WBC 28.0 H* D (4.5-11.0) 10^3/ul RBC 3.34 L (3.5-6.1) 10^6/uL Hgb 10.1 L (14.0-18.0) gm/dL Hct 29.7 L (42.0-52.0) % MCV 88.9 (80.0-105.0) fL MCH 30.2 (25.0-35.0) pg MCHC 34.0 (31.0-37.0) g/dl RDW 16.5 H (11.5-14.5) % Plt Count 291 (120.0-450.0) 10^3/uL MPV 13.8 H (7.0-11.0) fl Gran % 91.9 H (50.0-68.0) % Lymph % (Auto) 2.0 L (22.0-35.0) % [place] % (Auto) 5.7 (1.0-6.0) % Eos % (Auto) 0.3 L (1.5-5.0) % Baso % (Auto) 0.1 (0.0-3.0) % Gran # 25.72 H (1.4-6.5) Lymph # 0.6 L (1.2-3.4) [place] # 1.6 H (0.1-0.6) Eos # 0.1 (0.0-0.7) Baso # 0.02 (0.0-2.0) K/mm3 PT (9.9-11.8) Seconds INR (0.93-1.08) APTT 41.8 H (23.7-30.8) Seconds pCO2 22 L (35-45) mm/Hg pO2 59.0 L (80-100) mm/Hg HCO3 10.3 L (21-28) mmol/L ABG pH 7.28 L (7.35-7.45) ABG Total CO2 11.0 L (22-28) mmol.L ABG O2 Saturation 92.3 L (95-98) % ABG O2 Content 12.6 L (15-23) ML/dl ABG Base Excess -14.7 L (-2.0-3.0) mmol/L ABG Hemoglobin 10.0 L (11.7-17.4) g/dL ABG Carboxyhemoglobin 2.4 H (0.5-1.5) % POC ABG HHb (Measured) 7.4 H (0-5) % ABG Methemoglobin 1.1 (0.0-3.0) % ABG O2 Capacity 13.7 L (16-24) mL/dl Hgb O2 Saturation 89.2 L (95.0-98.0) % FiO2 32.0 % Sodium 144 (132-148) mmol/L Potassium 3.8 (3.6-5.0) mmol/L Chloride 115 H (95-110) mmol/L Carbon Dioxide 12 L (21-33) mmol/L Anion Gap 21 H (10-20) BUN 112 H (7-21) mg/dL Creatinine 5.7 H (0.5-1.4) mg/dL Est GFR ( Amer) 12 Est GFR (Non-Af Amer) 10 POC Glucose (mg/dL) 161 H (65-110) mg/dL Random Glucose 129 H (70-110) mg/dL Calcium 7.7 L (8.4-10.5) mg/dL Phosphorus 7.1 H (2.5-4.5) mg/dL Magnesium 2.1 (1.7-2.2) mg/dL Total Bilirubin 0.6 (0.2-1.3) mg/dL AST 26 (15-59) U/L ALT 47 (7-56) U/L Alkaline Phosphatase 63 (38-133) U/L Total Protein 4.8 L (5.8-8.3) g/dL Albumin 2.1 L (3.0-4.8) g/dL Globulin 2.6 gm/dL Albumin/Globulin Ratio 0.8 L (1.1-1.8) ANCA Screen (NEGATIVE) c-ANCA Titer Proteinase 3 (PR3) (<1.0) AI p-ANCA Titer Atypical p-ANCA Titer Myeloperoxidase Ab (<1.0) AI Babesia microti IgG Ab (()) Babesia microti IgM Ab (()) Babesia Interpretation (()) Mycoplasma pneumon IgG (<=0.90) Mycoplasma pneumon IgM (<770) U/mL BURTON, Poly Interpret (NEGATIVE) Indirect Antiglob Test 08/30/16 08/30/16 08/30/16 Range/Units 21:58 19:05 16:15 WBC 22.5 H (4.5-11.0) 10^3/ul RBC 3.19 L (3.5-6.1) 10^6/uL Hgb 9.6 L (14.0-18.0) gm/dL Hct 28.7 L (42.0-52.0) % MCV 90.0 (80.0-105.0) fL MCH 30.1 (25.0-35.0) pg MCHC 33.4 (31.0-37.0) g/dl RDW 16.4 H (11.5-14.5) % Plt Count 255 (120.0-450.0) 10^3/uL MPV 13.5 H (7.0-11.0) fl Gran % 89.5 H (50.0-68.0) % Lymph % (Auto) 3.5 L (22.0-35.0) % [place] % (Auto) 6.0 (1.0-6.0) % Eos % (Auto) 1.0 L (1.5-5.0) % Baso % (Auto) 0.0 (0.0-3.0) % Gran # 20.13 H (1.4-6.5) Lymph # 0.8 L (1.2-3.4) [place] # 1.3 H (0.1-0.6) Eos # 0.2 (0.0-0.7) Baso # 0.01 (0.0-2.0) K/mm3 PT 14.7 H (9.9-11.8) Seconds INR 1.36 H (0.93-1.08) APTT 105.5 H* (23.7-30.8) Seconds pCO2 (35-45) mm/Hg pO2 (80-100) mm/Hg HCO3 (21-28) mmol/L ABG pH (7.35-7.45) ABG Total CO2 (22-28) mmol.L ABG O2 Saturation (95-98) % ABG O2 Content (15-23) ML/dl ABG Base Excess (-2.0-3.0) mmol/L ABG Hemoglobin (11.7-17.4) g/dL ABG Carboxyhemoglobin (0.5-1.5) % POC ABG HHb (Measured) (0-5) % ABG Methemoglobin (0.0-3.0) % ABG O2 Capacity (16-24) mL/dl Hgb O2 Saturation (95.0-98.0) % FiO2 % Sodium 142 (132-148) mmol/L Potassium 4.0 (3.6-5.0) mmol/L Chloride 115 H (95-110) mmol/L Carbon Dioxide 15 L (21-33) mmol/L Anion Gap 16 (10-20) BUN 107 H (7-21) mg/dL Creatinine 5.5 H (0.5-1.4) mg/dL Est GFR ( Amer) 12 Est GFR (Non-Af Amer) 10 POC Glucose (mg/dL) 135 H 213 H (65-110) mg/dL Random Glucose 148 H (70-110) mg/dL Calcium 7.4 L (8.4-10.5) mg/dL Phosphorus 7.4 H (2.5-4.5) mg/dL Magnesium 2.1 (1.7-2.2) mg/dL Total Bilirubin 0.7 (0.2-1.3) mg/dL AST 19 (15-59) U/L ALT 47 (7-56) U/L Alkaline Phosphatase 53 (38-133) U/L Total Protein 4.3 L (5.8-8.3) g/dL Albumin 1.9 L (3.0-4.8) g/dL Globulin 2.4 gm/dL Albumin/Globulin Ratio 0.8 L (1.1-1.8) ANCA Screen (NEGATIVE) c-ANCA Titer Proteinase 3 (PR3) (<1.0) AI p-ANCA Titer Atypical p-ANCA Titer Myeloperoxidase Ab (<1.0) AI Babesia microti IgG Ab (()) Babesia microti IgM Ab (()) Babesia Interpretation (()) Mycoplasma pneumon IgG (<=0.90) Mycoplasma pneumon IgM (<770) U/mL BURTON, Poly Interpret (NEGATIVE) Indirect Antiglob Test 08/30/16 08/30/16 08/30/16 Range/Units 15:52 11:15 07:33 WBC (4.5-11.0) 10^3/ul RBC (3.5-6.1) 10^6/uL Hgb (14.0-18.0) gm/dL Hct (42.0-52.0) % MCV (80.0-105.0) fL MCH (25.0-35.0) pg MCHC (31.0-37.0) g/dl RDW (11.5-14.5) % Plt Count (120.0-450.0) 10^3/uL MPV (7.0-11.0) fl Gran % (50.0-68.0) % Lymph % (Auto) (22.0-35.0) % [place] % (Auto) (1.0-6.0) % Eos % (Auto) (1.5-5.0) % Baso % (Auto) (0.0-3.0) % Gran # (1.4-6.5) Lymph # (1.2-3.4) [place] # (0.1-0.6) Eos # (0.0-0.7) Baso # (0.0-2.0) K/mm3 PT 14.4 H (9.9-11.8) Seconds INR 1.33 H (0.93-1.08) APTT 39.4 H (23.7-30.8) Seconds pCO2 (35-45) mm/Hg pO2 (80-100) mm/Hg HCO3 (21-28) mmol/L ABG pH (7.35-7.45) ABG Total CO2 (22-28) mmol.L ABG O2 Saturation (95-98) % ABG O2 Content (15-23) ML/dl ABG Base Excess (-2.0-3.0) mmol/L ABG Hemoglobin (11.7-17.4) g/dL ABG Carboxyhemoglobin (0.5-1.5) % POC ABG HHb (Measured) (0-5) % ABG Methemoglobin (0.0-3.0) % ABG O2 Capacity (16-24) mL/dl Hgb O2 Saturation (95.0-98.0) % FiO2 % Sodium (132-148) mmol/L Potassium (3.6-5.0) mmol/L Chloride (95-110) mmol/L Carbon Dioxide (21-33) mmol/L Anion Gap (10-20) BUN (7-21) mg/dL Creatinine (0.5-1.4) mg/dL Est GFR ( Amer) Est GFR (Non-Af Amer) POC Glucose (mg/dL) 183 H 171 H (65-110) mg/dL Random Glucose (70-110) mg/dL Calcium (8.4-10.5) mg/dL Phosphorus (2.5-4.5) mg/dL Magnesium (1.7-2.2) mg/dL Total Bilirubin (0.2-1.3) mg/dL AST (15-59) U/L ALT (7-56) U/L Alkaline Phosphatase (38-133) U/L Total Protein (5.8-8.3) g/dL Albumin (3.0-4.8) g/dL Globulin gm/dL Albumin/Globulin Ratio (1.1-1.8) ANCA Screen (NEGATIVE) c-ANCA Titer Proteinase 3 (PR3) (<1.0) AI p-ANCA Titer Atypical p-ANCA Titer Myeloperoxidase Ab (<1.0) AI Babesia microti IgG Ab (()) Babesia microti IgM Ab (()) Babesia Interpretation (()) Mycoplasma pneumon IgG (<=0.90) Mycoplasma pneumon IgM (<770) U/mL BURTON, Poly Interpret (NEGATIVE) Indirect Antiglob Test 08/29/16 08/29/16 08/28/16 Range/Units 21:25 15:58 18:00 WBC (4.5-11.0) 10^3/ul RBC (3.5-6.1) 10^6/uL Hgb (14.0-18.0) gm/dL Hct (42.0-52.0) % MCV (80.0-105.0) fL MCH (25.0-35.0) pg MCHC (31.0-37.0) g/dl RDW (11.5-14.5) % Plt Count (120.0-450.0) 10^3/uL MPV (7.0-11.0) fl Gran % (50.0-68.0) % Lymph % (Auto) (22.0-35.0) % [place] % (Auto) (1.0-6.0) % Eos % (Auto) (1.5-5.0) % Baso % (Auto) (0.0-3.0) % Gran # (1.4-6.5) Lymph # (1.2-3.4) [place] # (0.1-0.6) Eos # (0.0-0.7) Baso # (0.0-2.0) K/mm3 PT (9.9-11.8) Seconds INR (0.93-1.08) APTT (23.7-30.8) Seconds pCO2 (35-45) mm/Hg pO2 (80-100) mm/Hg HCO3 (21-28) mmol/L ABG pH (7.35-7.45) ABG Total CO2 (22-28) mmol.L ABG O2 Saturation (95-98) % ABG O2 Content (15-23) ML/dl ABG Base Excess (-2.0-3.0) mmol/L ABG Hemoglobin (11.7-17.4) g/dL ABG Carboxyhemoglobin (0.5-1.5) % POC ABG HHb (Measured) (0-5) % ABG Methemoglobin (0.0-3.0) % ABG O2 Capacity (16-24) mL/dl Hgb O2 Saturation (95.0-98.0) % FiO2 % Sodium (132-148) mmol/L Potassium (3.6-5.0) mmol/L Chloride (95-110) mmol/L Carbon Dioxide (21-33) mmol/L Anion Gap (10-20) BUN (7-21) mg/dL Creatinine (0.5-1.4) mg/dL Est GFR ( Amer) Est GFR (Non-Af Amer) POC Glucose (mg/dL) 179 H 150 H (65-110) mg/dL Random Glucose (70-110) mg/dL Calcium (8.4-10.5) mg/dL Phosphorus (2.5-4.5) mg/dL Magnesium (1.7-2.2) mg/dL Total Bilirubin (0.2-1.3) mg/dL AST (15-59) U/L ALT (7-56) U/L Alkaline Phosphatase (38-133) U/L Total Protein (5.8-8.3) g/dL Albumin (3.0-4.8) g/dL Globulin gm/dL Albumin/Globulin Ratio (1.1-1.8) ANCA Screen (NEGATIVE) c-ANCA Titer Proteinase 3 (PR3) (<1.0) AI p-ANCA Titer Atypical p-ANCA Titer Myeloperoxidase Ab (<1.0) AI Babesia microti IgG Ab (()) Babesia microti IgM Ab (()) Babesia Interpretation (()) Mycoplasma pneumon IgG (<=0.90) Mycoplasma pneumon IgM (<770) U/mL BURTON, Poly Interpret Negative (NEGATIVE) Indirect Antiglob Test 08/27/16 08/27/16 Range/Units 10:31 09:45 WBC (4.5-11.0) 10^3/ul RBC (3.5-6.1) 10^6/uL Hgb (14.0-18.0) gm/dL Hct (42.0-52.0) % MCV (80.0-105.0) fL MCH (25.0-35.0) pg MCHC (31.0-37.0) g/dl RDW (11.5-14.5) % Plt Count (120.0-450.0) 10^3/uL MPV (7.0-11.0) fl Gran % (50.0-68.0) % Lymph % (Auto) (22.0-35.0) % [place] % (Auto) (1.0-6.0) % Eos % (Auto) (1.5-5.0) % Baso % (Auto) (0.0-3.0) % Gran # (1.4-6.5) Lymph # (1.2-3.4) [place] # (0.1-0.6) Eos # (0.0-0.7) Baso # (0.0-2.0) K/mm3 PT (9.9-11.8) Seconds INR (0.93-1.08) APTT (23.7-30.8) Seconds pCO2 (35-45) mm/Hg pO2 (80-100) mm/Hg HCO3 (21-28) mmol/L ABG pH (7.35-7.45) ABG Total CO2 (22-28) mmol.L ABG O2 Saturation (95-98) % ABG O2 Content (15-23) ML/dl ABG Base Excess (-2.0-3.0) mmol/L ABG Hemoglobin (11.7-17.4) g/dL ABG Carboxyhemoglobin (0.5-1.5) % POC ABG HHb (Measured) (0-5) % ABG Methemoglobin (0.0-3.0) % ABG O2 Capacity (16-24) mL/dl Hgb O2 Saturation (95.0-98.0) % FiO2 % Sodium (132-148) mmol/L Potassium (3.6-5.0) mmol/L Chloride (95-110) mmol/L Carbon Dioxide (21-33) mmol/L Anion Gap (10-20) BUN (7-21) mg/dL Creatinine (0.5-1.4) mg/dL Est GFR ( Amer) Est GFR (Non-Af Amer) POC Glucose (mg/dL) (65-110) mg/dL Random Glucose (70-110) mg/dL Calcium (8.4-10.5) mg/dL Phosphorus (2.5-4.5) mg/dL Magnesium (1.7-2.2) mg/dL Total Bilirubin (0.2-1.3) mg/dL AST (15-59) U/L ALT (7-56) U/L Alkaline Phosphatase (38-133) U/L Total Protein (5.8-8.3) g/dL Albumin (3.0-4.8) g/dL Globulin gm/dL Albumin/Globulin Ratio (1.1-1.8) ANCA Screen Negative (NEGATIVE) c-ANCA Titer TNP Proteinase 3 (PR3) <1.0 (<1.0) AI p-ANCA Titer TNP Atypical p-ANCA Titer TNP Myeloperoxidase Ab <1.0 (<1.0) AI Babesia microti IgG Ab <1:64 (()) Babesia microti IgM Ab <1:20 (()) Babesia Interpretation See note (()) Mycoplasma pneumon IgG 1.00 H (<=0.90) Mycoplasma pneumon IgM 44 (<770) U/mL BURTON, Poly Interpret (NEGATIVE) Indirect Antiglob Test Laboratory Results - last 24 hr 08/27/16 08/27/16 08/28/16 09:45 10:31 18:00 WBC RBC Hgb Hct MCV MCH MCHC RDW Plt Count MPV Gran % Lymph % (Auto) [place] % (Auto) Eos % (Auto) Baso % (Auto) Gran # Lymph # [place] # Eos # Baso # PT INR APTT pCO2 pO2 HCO3 ABG pH ABG Total CO2 ABG O2 Saturation ABG O2 Content ABG Base Excess ABG Hemoglobin ABG Carboxyhemoglobin POC ABG HHb (Measured) ABG Methemoglobin ABG O2 Capacity Hgb O2 Saturation FiO2 Sodium Potassium Chloride Carbon Dioxide Anion Gap BUN Creatinine Est GFR ( Amer) Est GFR (Non-Af Amer) POC Glucose (mg/dL) Random Glucose Calcium Phosphorus Magnesium Total Bilirubin AST ALT Alkaline Phosphatase Total Protein Albumin Globulin Albumin/Globulin Ratio ANCA Screen Negative c-ANCA Titer TNP Proteinase 3 (PR3) <1.0 p-ANCA Titer TNP Atypical p-ANCA Titer TNP Myeloperoxidase Ab <1.0 Babesia microti IgG Ab <1:64 Babesia microti IgM Ab <1:20 Babesia Interpretation See note Mycoplasma pneumon IgG 1.00 H Mycoplasma pneumon IgM 44 BURTON, Poly Interpret Negative Indirect Antiglob Test 08/29/16 08/29/16 08/30/16 15:58 21:25 07:33 WBC RBC Hgb Hct MCV MCH MCHC RDW Plt Count MPV Gran % Lymph % (Auto) [place] % (Auto) Eos % (Auto) Baso % (Auto) Gran # Lymph # [place] # Eos # Baso # PT INR APTT pCO2 pO2 HCO3 ABG pH ABG Total CO2 ABG O2 Saturation ABG O2 Content ABG Base Excess ABG Hemoglobin ABG Carboxyhemoglobin POC ABG HHb (Measured) ABG Methemoglobin ABG O2 Capacity Hgb O2 Saturation FiO2 Sodium Potassium Chloride Carbon Dioxide Anion Gap BUN Creatinine Est GFR ( Amer) Est GFR (Non-Af Amer) POC Glucose (mg/dL) 150 H 179 H 171 H Random Glucose Calcium Phosphorus Magnesium Total Bilirubin AST ALT Alkaline Phosphatase Total Protein Albumin Globulin Albumin/Globulin Ratio ANCA Screen c-ANCA Titer Proteinase 3 (PR3) p-ANCA Titer Atypical p-ANCA Titer Myeloperoxidase Ab Babesia microti IgG Ab Babesia microti IgM Ab Babesia Interpretation Mycoplasma pneumon IgG Mycoplasma pneumon IgM BURTON, Poly Interpret Indirect Antiglob Test 08/30/16 08/30/16 08/30/16 11:15 15:52 16:15 WBC RBC Hgb Hct MCV MCH MCHC RDW Plt Count MPV Gran % Lymph % (Auto) [place] % (Auto) Eos % (Auto) Baso % (Auto) Gran # Lymph # [place] # Eos # Baso # PT 14.4 H INR 1.33 H APTT 39.4 H pCO2 pO2 HCO3 ABG pH ABG Total CO2 ABG O2 Saturation ABG O2 Content ABG Base Excess ABG Hemoglobin ABG Carboxyhemoglobin POC ABG HHb (Measured) ABG Methemoglobin ABG O2 Capacity Hgb O2 Saturation FiO2 Sodium Potassium Chloride Carbon Dioxide Anion Gap BUN Creatinine Est GFR ( Amer) Est GFR (Non-Af Amer) POC Glucose (mg/dL) 183 H 213 H Random Glucose Calcium Phosphorus Magnesium Total Bilirubin AST ALT Alkaline Phosphatase Total Protein Albumin Globulin Albumin/Globulin Ratio ANCA Screen c-ANCA Titer Proteinase 3 (PR3) p-ANCA Titer Atypical p-ANCA Titer Myeloperoxidase Ab Babesia microti IgG Ab Babesia microti IgM Ab Babesia Interpretation Mycoplasma pneumon IgG Mycoplasma pneumon IgM BURTON, Poly Interpret Indirect Antiglob Test 08/30/16 08/30/16 08/31/16 19:05 21:58 05:20 WBC 22.5 H 28.0 H* D RBC 3.19 L 3.34 L Hgb 9.6 L 10.1 L Hct 28.7 L 29.7 L MCV 90.0 88.9 MCH 30.1 30.2 MCHC 33.4 34.0 RDW 16.4 H 16.5 H Plt Count 255 291 MPV 13.5 H 13.8 H Gran % 89.5 H 91.9 H Lymph % (Auto) 3.5 L 2.0 L [place] % (Auto) 6.0 5.7 Eos % (Auto) 1.0 L 0.3 L Baso % (Auto) 0.0 0.1 Gran # 20.13 H 25.72 H Lymph # 0.8 L 0.6 L [place] # 1.3 H 1.6 H Eos # 0.2 0.1 Baso # 0.01 0.02 PT 14.7 H INR 1.36 H APTT 105.5 H* 41.8 H pCO2 pO2 HCO3 ABG pH ABG Total CO2 ABG O2 Saturation ABG O2 Content ABG Base Excess ABG Hemoglobin ABG Carboxyhemoglobin POC ABG HHb (Measured) ABG Methemoglobin ABG O2 Capacity Hgb O2 Saturation FiO2 Sodium 142 144 Potassium 4.0 3.8 Chloride 115 H 115 H Carbon Dioxide 15 L 12 L Anion Gap 16 21 H BUN 107 H 112 H Creatinine 5.5 H 5.7 H Est GFR ( Amer) 12 12 Est GFR (Non-Af Amer) 10 10 POC Glucose (mg/dL) 135 H Random Glucose 148 H 129 H Calcium 7.4 L 7.7 L Phosphorus 7.4 H 7.1 H Magnesium 2.1 2.1 Total Bilirubin 0.7 0.6 AST 19 26 ALT 47 47 Alkaline Phosphatase 53 63 Total Protein 4.3 L 4.8 L Albumin 1.9 L 2.1 L Globulin 2.4 2.6 Albumin/Globulin Ratio 0.8 L 0.8 L ANCA Screen c-ANCA Titer Proteinase 3 (PR3) p-ANCA Titer Atypical p-ANCA Titer Myeloperoxidase Ab Babesia microti IgG Ab Babesia microti IgM Ab Babesia Interpretation Mycoplasma pneumon IgG Mycoplasma pneumon IgM BURTON, Poly Interpret Indirect Antiglob Test 08/31/16 08/31/16 05:55 07:18 WBC RBC Hgb Hct MCV MCH MCHC RDW Plt Count MPV Gran % Lymph % (Auto) [place] % (Auto) Eos % (Auto) Baso % (Auto) Gran # Lymph # [place] # Eos # Baso # PT INR APTT pCO2 22 L pO2 59.0 L HCO3 10.3 L ABG pH 7.28 L ABG Total CO2 11.0 L ABG O2 Saturation 92.3 L ABG O2 Content 12.6 L ABG Base Excess -14.7 L ABG Hemoglobin 10.0 L ABG Carboxyhemoglobin 2.4 H POC ABG HHb (Measured) 7.4 H ABG Methemoglobin 1.1 ABG O2 Capacity 13.7 L Hgb O2 Saturation 89.2 L FiO2 32.0 Sodium Potassium Chloride Carbon Dioxide Anion Gap BUN Creatinine Est GFR ( Amer) Est GFR (Non-Af Amer) POC Glucose (mg/dL) 161 H Random Glucose Calcium Phosphorus Magnesium Total Bilirubin AST ALT Alkaline Phosphatase Total Protein Albumin Globulin Albumin/Globulin Ratio ANCA Screen c-ANCA Titer Proteinase 3 (PR3) p-ANCA Titer Atypical p-ANCA Titer Myeloperoxidase Ab Babesia microti IgG Ab Babesia microti IgM Ab Babesia Interpretation Mycoplasma pneumon IgG Mycoplasma pneumon IgM BURTON, Poly Interpret Indirect Antiglob Test EKG/Cardiology Studies: Cardiology / EKG Studies 08/31/16 07:12 EKG [ELECTROCARDIOGRAM] Stat Comment: Reason For Exam: tachy Fingerstick Blood Sugar Results: 135 Assessment/Plan - Assessment and Plan (Free Text) Plan: Assessments 82 years old male was found unconscious on the floor on Sunday (08/26) covered with melonic stool with maroon blood clots. Pt had worsened L weakness compared to baseline, slurred speech, and new L nathan-neglect on Good Sunday (08/25). He has NSTEMI \ GI bleed \ Blood loss anemia \ JASMEET on CKD \ Elevated LFT \ PNA \ Sepsis \ Hx ITP \ ro CVA - A-fib RVR s/p bicarb and amiodarone 150 x 1, on amiodarone gtt. Hold cardizem bolus and gtt - JASMEET on CKD - prerenal (blood loss) vs intrinsic (RTA 1,2,4, no rhabdomyolysis ) vs postrenal (unlikely); bicarb trends down to 12. K is 3.8. - Metabolic acidosis with adequate respiratory compensation. s/p intubation for agonal breath, extubated on (08/30) - now on high flow - Initial Gap metabolic acidosis likely from uremia - resolved - Pt intubated (on 08/27) for agonal breath due to metabolic acidosis - extubated on (08/30) - now on high flow - Active GI bleed, now resolved, EGD no active bleed - lkely upper, likely from PUD (Plavix vs H pylori vs immunogenic) vs infectious vs autoimmune vs ischemic. Unlikely from trauma. Hb 5.7 --> 9.4 s/p 4u pRBC, With Hb this low, likely a chronic bleeder. - NSTEMI, stable, on heparin gtt; Cardio-renal syndrome (dry intravascular, wet lung) - AMS - metabolic encephalopathy due to electrolytes vs sepsis; suspected stroke - Suspected new stroke - new slur speech, L hemineglect, suddened worsening of L weakness - Sepsis - PNA vs c. diff. CT confirmed proctitis - WBC still high - WBC > 30 on admission DDx: C.diff vs CA/Leukemia/lymphoma/CML/CLL/Waldendrome/ Blast crisis/Leukoid reaction. 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 - Brovana Q12; Pulmicort Q12 (hold because intubation) Cardio - - A-fib RVR s/p bicarb and amiodarone 150 x 1, on amiodarone gtt. Hold cardizem bolus and gtt - Cardiorenal syndrome - Given 100 Lasix x 1 on top of schedule lasix - will consider albumin - will consider dobutamin - son consented to dialysis - NSTEMI - Dr. Samson following on poss catherterization. No active GI bleed. heparin drip - [ ] trend cardiac enzyme, CMP, Mg/Phos, and H/H q12 - hold plavix. cont asa - Hb goal in CT is above 8-9. - EF 35% (systolic and diastolic componenet), poor wall motion, drastic change compared to echo 1 year ago - IS IT DUE TO NSTMEI? - Pending Dr. Samson on Cath decision, which needs contrast - pending dialysis decision - Hx paroxysmal a-fib, CAD with stent, HTN, HLD; Hx L Carotid endartectomy - Home meds: Aliskiren/Amlodipine 150/5mg daily; Lisinopril 2.5 PO; Metoprolol 50 BIDOn metoprolol - ON HOLD Pulm - High flow 40% 5L titrate to above POx 90% - Increased secretion - Chest PT, Duoneb PRN, Suction PRN, pulm toiletry PRN GI - OG tube in place (difficult NG placement) - Hb 5.6 --> 9 - 10 after 4p RBC - NPO - Protonix IV BID - C.diff toxin and antigen sent - Bedside Endoscopy (08/28) showed no active bleed, barretts and PUD (1 organized healed scab, 2 clean based) no web - Chest, abdomen, pelvis w.o contrast: Proctitis - Abd u/s: Cholelithiasis with gallbladder wall thickening; small perocholecystic fluid. No sono martinez sign. Fatty liver Nephro - Son, POA, consents for dialysis and temp dialysis cath placment - Call and left message Re: decision on temp dialysis - strict i/o. u/o adequate - d/c fluid Endo - Hx IDDM - ISSS-low. Accu-check ACHS - hyperK s/p D50, insulin, albuterol. Avoid Kayexaltate in setting of GI bleed Heme - Per heme, cancel platelet - Hx ITP - LE saurav b/l negative - DIC vs HUS vs TTP (Renal failure, AMS, fever, WBC keenan high, low plt) - concern hemolytic anemia - hepatitis, babesia, malaric, retic, LDH, heptoglobin, hemolytic anemia workip, mycoplasma - Anemia, acute on chronic, 2/2 GI bleed, ASA/Plavix on hold, s/p 4u RBC - Chronic ITP, failed outpt steroids and rituximab, on thrombopoeitin receptor agonist since 2014, failed to f/u, Promacta on hold for now. Goal plt on promacta should be 50K - DIC/HUS/TTP work up: Fibrinogen, peripheral smear, reticulocytes, LDH, haptoglobin, indirect bilirubin, CMP Infectious - WBC 28. Resent C.diff. CT abd/pelv with PO contrast - Severe sepsis with CAP vs suspected c. diff (negative on 08/27, re-sent 08/31) - flagyl and doxy for atypical (day 5) - C.diff negative stop Vancomycin PO (day 3); OFF cefepime (day 2) - Procalc 3 - PNA work up: urine legionella negative; High IgG on mycoplasma and parvo B19 but no IgM - Hemorrhagic stool work up: Pending Babesia, malaria, GBM Ab, parvo B19, ANCA, mau - Negative Hep panel, HIV, - Negative ANCA - s/p yunior collins - Barrios culture sent. No growth. Negative MRSA screen - tylenol PRN Prophlaxis - SCD - Protonix GI bleed dose Prognosis - Poor: Pneumonia severity index 257: Risk V. 30% mortality - TANGIRNAQ: - Full Code S/R/D/w Dr. Lizzie Rouse. - Date & Time Date: 08/31/16 Time: 09:19 <Cristi Rouse MD H - Last Filed: 08/31/16 17:41> CCU Objective - Vital Signs / Intake & Output Vital Signs (Last 4 hours): Vital Signs Pulse BP 08/31/16 17:00 116 H 116/64 08/31/16 13:42 117 H 125/64 Intake and Output (Last 8hrs): Intake & Output 08/31/16 08/31/16 08/31/16 06:59 14:59 22:59 Intake Total 580 Output Total 2300 Balance -1720 Intake: IV 180 Right Internal Jugular 180 Other 400 Output: Urine 2200 Urethral (Rodrigez) 2200 Stool 100 Emesis 0 Oral Regurgitation 0 Other 0 Other: Voiding Method Indwelling Catheter # Bowel Movements 1 - Medications Active Medications: Active Medications Generic Name Dose Route Start Last Admin Trade Name Freq PRN Reason Stop Dose Admin Acetaminophen 650 mg 08/26/16 16:19 Tylenol 650 Mg Supp RC Q4H PRN Fever >100.4 F Arformoterol Tartrate 15 mcg 08/26/16 20:00 08/31/16 07:06 Brovana IH 15 mcg [id number] DENIZ Administration Aspirin 81 mg 08/29/16 10:00 08/31/16 10:05 Ecotrin PO 81 mg DAILY DENIZ Administration Budesonide 0.5 mg 08/26/16 20:00 08/31/16 07:06 Pulmicort Respules IH 0.5 mg [id number] DENIZ Administration Clopidogrel Bisulfate 75 mg 08/29/16 10:00 08/31/16 10:07 Plavix NG Not Given DAILY DENIZ Furosemide 40 mg 08/28/16 22:00 08/31/16 09:31 Lasix IVP 40 mg Q12 DENIZ Administration Metronidazole 100 mls @ 100 mls/hr 08/26/16 15:00 08/31/16 13:42 Flagyl IVPB 100 mls/hr Q8 DENIZ Administration Protocol Doxycycline Hyclate 100 mg/ 100 mls @ 100 mls/hr 08/27/16 10:00 08/31/16 09:29 Sodium Chloride IVPB 09/10/16 10:01 100 mls/hr Q12 DENIZ Administration Protocol Cefepime HCl 100 mls @ 100 mls/hr 08/29/16 15:15 08/31/16 17:01 Maxipime 1gm IVPB 09/05/16 15:16 100 mls/hr Q24H DENIZ Administration Protocol Heparin Sodium/Sodium Chloride 250 mls @ 8.616 mls/hr 08/30/16 15:45 08/31/16 09:15 Heparin 44790 Units/250ml 1/2 Normal Saline IV 0 units/kg/hr .Q24H DENIZ Titration Protocol 12 UNITS/KG/HR Amiodarone HCl/Dextrose 200 mls @ 16.667 mls/hr 08/31/16 16:15 08/31/16 17:00 Nexterone 360 Mg In D5w 200 Ml (Premix) IV 16.667 mls/hr .Q12H DENIZ Administration Protocol 0.5 MG/MIN Amiodarone HCl/Dextrose 200 mls @ 33.333 mls/hr 08/31/16 10:30 08/31/16 10:38 Nexterone 360 Mg In D5w 200 Ml (Premix) IV 33.333 mls/hr .Q6H DENIZ Administration Protocol 1 MG/MIN diltiaZEM IVPB 100mg in NS 100 mls @ 5 mls/hr 08/31/16 12:08 Cardizem 100mg In Ns IV .Q20H PRN TITRATE PER MD ORDER Protocol 5 MG/HR Heparin Sodium/Sodium Chloride 250 mls @ 12.925 mls/hr 08/31/16 16:58 08/31/16 17:28 Heparin 18422 Units/250ml 1/2 Normal Saline IV 12.925 mls/hr .[id number] PRN Administration ADJUST RATE PER PROTOCOL Protocol 18 UNITS/KG/HR Insulin Human Lispro 0 units 08/26/16 22:00 08/31/16 11:40 Humalog Low SC 1 units ACHS DENIZ Administration Protocol Metoprolol Tartrate 5 mg 08/29/16 14:00 08/31/16 13:42 Lopressor IVP 5 mg Q6H DENIZ Administration Pantoprazole Sodium 40 mg 08/26/16 22:00 08/31/16 09:30 Protonix Inj IVP 40 mg Q12 DENIZ Administration Tetrahydrozoline HCl/Zinc Sulfate 0 ml 08/30/16 21:02 Visine 0.05% Opht Soln OU BID PRN Dry eyes - Patient Studies Lab Studies: Microbiology Studies 08/29/16 16:30 Gram Stain - Final Sputum Sputum Culture - Final NORMAL ORAL LISA 08/27/16 09:45 Blood Culture - Preliminary Blood NO GROWTH AFTER 4 DAYS 08/27/16 09:45 Blood Culture - Preliminary Blood NO GROWTH AFTER 4 DAYS 08/27/16 13:53 C. difficile Antigen & Toxin A,B (M - Final Stool Lab Studies 08/31/16 08/31/16 08/31/16 Range/Units 13:00 07:18 06:30 WBC (4.5-11.0) 10^3/ul RBC (3.5-6.1) 10^6/uL Hgb (14.0-18.0) gm/dL Hct (42.0-52.0) % MCV (80.0-105.0) fL MCH (25.0-35.0) pg MCHC (31.0-37.0) g/dl RDW (11.5-14.5) % Plt Count (120.0-450.0) 10^3/uL MPV (7.0-11.0) fl Gran % (50.0-68.0) % Lymph % (Auto) (22.0-35.0) % [place] % (Auto) (1.0-6.0) % Eos % (Auto) (1.5-5.0) % Baso % (Auto) (0.0-3.0) % Gran # (1.4-6.5) Lymph # (1.2-3.4) [place] # (0.1-0.6) Eos # (0.0-0.7) Baso # (0.0-2.0) K/mm3 PT 14.3 H (9.9-11.8) Seconds INR 1.32 H (0.93-1.08) APTT 39.9 H (23.7-30.8) Seconds pCO2 (35-45) mm/Hg pO2 (80-100) mm/Hg HCO3 (21-28) mmol/L ABG pH (7.35-7.45) ABG Total CO2 (22-28) mmol.L ABG O2 Saturation (95-98) % ABG O2 Content (15-23) ML/dl ABG Base Excess (-2.0-3.0) mmol/L ABG Hemoglobin (11.7-17.4) g/dL ABG Carboxyhemoglobin (0.5-1.5) % POC ABG HHb (Measured) (0-5) % ABG Methemoglobin (0.0-3.0) % ABG O2 Capacity (16-24) mL/dl Hgb O2 Saturation (95.0-98.0) % FiO2 % Sodium 144 (132-148) mmol/L Potassium 3.4 L (3.6-5.0) mmol/L Chloride 115 H (98-107) mmol/L Carbon Dioxide 16 L (21-33) mmol/L Anion Gap 16 (10-20) BUN 116 H (7-21) mg/dL Creatinine 5.8 H (0.5-1.4) mg/dL Est GFR ( Amer) 11 Est GFR (Non-Af Amer) 9 POC Glucose (mg/dL) 161 H (65-110) mg/dL Random Glucose 130 H (70-110) mg/dL Calcium 7.6 L (8.4-10.5) mg/dL Phosphorus 6.4 H (2.5-4.5) mg/dL Magnesium 2.1 (1.7-2.2) mg/dL Total Bilirubin 0.6 (0.2-1.3) mg/dL AST 32 (15-59) U/L ALT 44 (7-56) U/L Alkaline Phosphatase 63 (38-133) U/L Lactate Dehydrogenase 1168 H (333-699) U/L Total Creatine Kinase 59 (35-230) U/L Troponin I 18.90 H* D ng/mL Total Protein 4.8 L (5.8-8.3) g/dL Albumin 2.1 L (3.0-4.8) g/dL Globulin 2.7 gm/dL Albumin/Globulin Ratio 0.8 L (1.1-1.8) ANCA Screen (NEGATIVE) c-ANCA Titer p-ANCA Titer Atypical p-ANCA Titer Babesia microti IgG Ab (()) Babesia microti IgM Ab (()) Babesia Interpretation (()) Parvovirus Source (()) Parvovirus B19 IgG Ab (<0.9) Parvovirus B19 IgM Ab (<0.9) Parvovirus B19 DNA PCR (()) Parvovirus Interpret (()) 1 08/31/16 08/31/16 08/30/16 Range/Units 05:55 05:20 21:58 WBC 28.0 H* D (4.5-11.0) 10^3/ul RBC 3.34 L (3.5-6.1) 10^6/uL Hgb 10.1 L (14.0-18.0) gm/dL Hct 29.7 L (42.0-52.0) % MCV 88.9 (80.0-105.0) fL MCH 30.2 (25.0-35.0) pg MCHC 34.0 (31.0-37.0) g/dl RDW 16.5 H (11.5-14.5) % Plt Count 291 (120.0-450.0) 10^3/uL MPV 13.8 H (7.0-11.0) fl Gran % 91.9 H (50.0-68.0) % Lymph % (Auto) 2.0 L (22.0-35.0) % [place] % (Auto) 5.7 (1.0-6.0) % Eos % (Auto) 0.3 L (1.5-5.0) % Baso % (Auto) 0.1 (0.0-3.0) % Gran # 25.72 H (1.4-6.5) Lymph # 0.6 L (1.2-3.4) [place] # 1.6 H (0.1-0.6) Eos # 0.1 (0.0-0.7) Baso # 0.02 (0.0-2.0) K/mm3 PT (9.9-11.8) Seconds INR (0.93-1.08) APTT 41.8 H (23.7-30.8) Seconds pCO2 22 L (35-45) mm/Hg pO2 59.0 L (80-100) mm/Hg HCO3 10.3 L (21-28) mmol/L ABG pH 7.28 L (7.35-7.45) ABG Total CO2 11.0 L (22-28) mmol.L ABG O2 Saturation 92.3 L (95-98) % ABG O2 Content 12.6 L (15-23) ML/dl ABG Base Excess -14.7 L (-2.0-3.0) mmol/L ABG Hemoglobin 10.0 L (11.7-17.4) g/dL ABG Carboxyhemoglobin 2.4 H (0.5-1.5) % POC ABG HHb (Measured) 7.4 H (0-5) % ABG Methemoglobin 1.1 (0.0-3.0) % ABG O2 Capacity 13.7 L (16-24) mL/dl Hgb O2 Saturation 89.2 L (95.0-98.0) % FiO2 32.0 % Sodium 144 (132-148) mmol/L Potassium 3.8 (3.6-5.0) mmol/L Chloride 115 H (98-107) mmol/L Carbon Dioxide 12 L (21-33) mmol/L Anion Gap 21 H (10-20) BUN 112 H (7-21) mg/dL Creatinine 5.7 H (0.5-1.4) mg/dL Est GFR ( Amer) 12 Est GFR (Non-Af Amer) 10 POC Glucose (mg/dL) 135 H (65-110) mg/dL Random Glucose 129 H (70-110) mg/dL Calcium 7.7 L (8.4-10.5) mg/dL Phosphorus 7.1 H (2.5-4.5) mg/dL Magnesium 2.1 (1.7-2.2) mg/dL Total Bilirubin 0.6 (0.2-1.3) mg/dL AST 26 (15-59) U/L ALT 47 (7-56) U/L Alkaline Phosphatase 63 (38-133) U/L Lactate Dehydrogenase (333-699) U/L Total Creatine Kinase (35-230) U/L Troponin I ng/mL Total Protein 4.8 L (5.8-8.3) g/dL Albumin 2.1 L (3.0-4.8) g/dL Globulin 2.6 gm/dL Albumin/Globulin Ratio 0.8 L (1.1-1.8) ANCA Screen (NEGATIVE) c-ANCA Titer p-ANCA Titer Atypical p-ANCA Titer Babesia microti IgG Ab (()) Babesia microti IgM Ab (()) Babesia Interpretation (()) Parvovirus Source (()) Parvovirus B19 IgG Ab (<0.9) Parvovirus B19 IgM Ab (<0.9) Parvovirus B19 DNA PCR (()) Parvovirus Interpret (()) 1 08/30/16 08/30/16 08/27/16 Range/Units 19:05 16:15 09:45 WBC 22.5 H (4.5-11.0) 10^3/ul RBC 3.19 L (3.5-6.1) 10^6/uL Hgb 9.6 L (14.0-18.0) gm/dL Hct 28.7 L (42.0-52.0) % MCV 90.0 (80.0-105.0) fL MCH 30.1 (25.0-35.0) pg MCHC 33.4 (31.0-37.0) g/dl RDW 16.4 H (11.5-14.5) % Plt Count 255 (120.0-450.0) 10^3/uL MPV 13.5 H (7.0-11.0) fl Gran % 89.5 H (50.0-68.0) % Lymph % (Auto) 3.5 L (22.0-35.0) % [place] % (Auto) 6.0 (1.0-6.0) % Eos % (Auto) 1.0 L (1.5-5.0) % Baso % (Auto) 0.0 (0.0-3.0) % Gran # 20.13 H (1.4-6.5) Lymph # 0.8 L (1.2-3.4) [place] # 1.3 H (0.1-0.6) Eos # 0.2 (0.0-0.7) Baso # 0.01 (0.0-2.0) K/mm3 PT 14.7 H (9.9-11.8) Seconds INR 1.36 H (0.93-1.08) APTT 105.5 H* (23.7-30.8) Seconds pCO2 (35-45) mm/Hg pO2 (80-100) mm/Hg HCO3 (21-28) mmol/L ABG pH (7.35-7.45) ABG Total CO2 (22-28) mmol.L ABG O2 Saturation (95-98) % ABG O2 Content (15-23) ML/dl ABG Base Excess (-2.0-3.0) mmol/L ABG Hemoglobin (11.7-17.4) g/dL ABG Carboxyhemoglobin (0.5-1.5) % POC ABG HHb (Measured) (0-5) % ABG Methemoglobin (0.0-3.0) % ABG O2 Capacity (16-24) mL/dl Hgb O2 Saturation (95.0-98.0) % FiO2 % Sodium 142 (132-148) mmol/L Potassium 4.0 (3.6-5.0) mmol/L Chloride 115 H (98-107) mmol/L Carbon Dioxide 15 L (21-33) mmol/L Anion Gap 16 (10-20) BUN 107 H (7-21) mg/dL Creatinine 5.5 H (0.5-1.4) mg/dL Est GFR ( Amer) 12 Est GFR (Non-Af Amer) 10 POC Glucose (mg/dL) 213 H (65-110) mg/dL Random Glucose 148 H (70-110) mg/dL Calcium 7.4 L (8.4-10.5) mg/dL Phosphorus 7.4 H (2.5-4.5) mg/dL Magnesium 2.1 (1.7-2.2) mg/dL Total Bilirubin 0.7 (0.2-1.3) mg/dL AST 19 (15-59) U/L ALT 47 (7-56) U/L Alkaline Phosphatase 53 (38-133) U/L Lactate Dehydrogenase (333-699) U/L Total Creatine Kinase (35-230) U/L Troponin I ng/mL Total Protein 4.3 L (5.8-8.3) g/dL Albumin 1.9 L (3.0-4.8) g/dL Globulin 2.4 gm/dL Albumin/Globulin Ratio 0.8 L (1.1-1.8) ANCA Screen Negative (NEGATIVE) c-ANCA Titer TNP p-ANCA Titer TNP Atypical p-ANCA Titer TNP Babesia microti IgG Ab <1:64 (()) Babesia microti IgM Ab <1:20 (()) Babesia Interpretation See note (()) Parvovirus Source Serum (()) Parvovirus B19 IgG Ab 1.7 H (<0.9) Parvovirus B19 IgM Ab 0.1 (<0.9) Parvovirus B19 DNA PCR Not detected (()) Parvovirus Interpret (()) 1 Laboratory Results - last 24 hr 08/27/16 08/30/16 08/30/16 09:45 16:15 19:05 WBC 22.5 H RBC 3.19 L Hgb 9.6 L Hct 28.7 L MCV 90.0 MCH 30.1 MCHC 33.4 RDW 16.4 H Plt Count 255 MPV 13.5 H Gran % 89.5 H Lymph % (Auto) 3.5 L [place] % (Auto) 6.0 Eos % (Auto) 1.0 L Baso % (Auto) 0.0 Gran # 20.13 H Lymph # 0.8 L [place] # 1.3 H Eos # 0.2 Baso # 0.01 PT 14.7 H INR 1.36 H APTT 105.5 H* pCO2 pO2 HCO3 ABG pH ABG Total CO2 ABG O2 Saturation ABG O2 Content ABG Base Excess ABG Hemoglobin ABG Carboxyhemoglobin POC ABG HHb (Measured) ABG Methemoglobin ABG O2 Capacity Hgb O2 Saturation FiO2 Sodium 142 Potassium 4.0 Chloride 115 H Carbon Dioxide 15 L Anion Gap 16 BUN 107 H Creatinine 5.5 H Est GFR ( Amer) 12 Est GFR (Non-Af Amer) 10 POC Glucose (mg/dL) 213 H Random Glucose 148 H Calcium 7.4 L Phosphorus 7.4 H Magnesium 2.1 Total Bilirubin 0.7 AST 19 ALT 47 Alkaline Phosphatase 53 Lactate Dehydrogenase Total Creatine Kinase Troponin I Total Protein 4.3 L Albumin 1.9 L Globulin 2.4 Albumin/Globulin Ratio 0.8 L ANCA Screen Negative c-ANCA Titer TNP p-ANCA Titer TNP Atypical p-ANCA Titer TNP Babesia microti IgG Ab <1:64 Babesia microti IgM Ab <1:20 Babesia Interpretation See note Parvovirus Source Serum Parvovirus B19 IgG Ab 1.7 H Parvovirus B19 IgM Ab 0.1 Parvovirus B19 DNA PCR Not detected Parvovirus Interpret 08/30/16 08/31/16 08/31/16 21:58 05:20 05:55 WBC 28.0 H* D RBC 3.34 L Hgb 10.1 L Hct 29.7 L MCV 88.9 MCH 30.2 MCHC 34.0 RDW 16.5 H Plt Count 291 MPV 13.8 H Gran % 91.9 H Lymph % (Auto) 2.0 L [place] % (Auto) 5.7 Eos % (Auto) 0.3 L Baso % (Auto) 0.1 Gran # 25.72 H Lymph # 0.6 L [place] # 1.6 H Eos # 0.1 Baso # 0.02 PT INR APTT 41.8 H pCO2 22 L pO2 59.0 L HCO3 10.3 L ABG pH 7.28 L ABG Total CO2 11.0 L ABG O2 Saturation 92.3 L ABG O2 Content 12.6 L ABG Base Excess -14.7 L ABG Hemoglobin 10.0 L ABG Carboxyhemoglobin 2.4 H POC ABG HHb (Measured) 7.4 H ABG Methemoglobin 1.1 ABG O2 Capacity 13.7 L Hgb O2 Saturation 89.2 L FiO2 32.0 Sodium 144 Potassium 3.8 Chloride 115 H Carbon Dioxide 12 L Anion Gap 21 H BUN 112 H Creatinine 5.7 H Est GFR ( Amer) 12 Est GFR (Non-Af Amer) 10 POC Glucose (mg/dL) 135 H Random Glucose 129 H Calcium 7.7 L Phosphorus 7.1 H Magnesium 2.1 Total Bilirubin 0.6 AST 26 ALT 47 Alkaline Phosphatase 63 Lactate Dehydrogenase Total Creatine Kinase Troponin I Total Protein 4.8 L Albumin 2.1 L Globulin 2.6 Albumin/Globulin Ratio 0.8 L ANCA Screen c-ANCA Titer p-ANCA Titer Atypical p-ANCA Titer Babesia microti IgG Ab Babesia microti IgM Ab Babesia Interpretation Parvovirus Source Parvovirus B19 IgG Ab Parvovirus B19 IgM Ab Parvovirus B19 DNA PCR Parvovirus Interpret 08/31/16 08/31/16 08/31/16 06:30 07:18 13:00 WBC RBC Hgb Hct MCV MCH MCHC RDW Plt Count MPV Gran % Lymph % (Auto) [place] % (Auto) Eos % (Auto) Baso % (Auto) Gran # Lymph # [place] # Eos # Baso # PT 14.3 H INR 1.32 H APTT 39.9 H pCO2 pO2 HCO3 ABG pH ABG Total CO2 ABG O2 Saturation ABG O2 Content ABG Base Excess ABG Hemoglobin ABG Carboxyhemoglobin POC ABG HHb (Measured) ABG Methemoglobin ABG O2 Capacity Hgb O2 Saturation FiO2 Sodium 144 Potassium 3.4 L Chloride 115 H Carbon Dioxide 16 L Anion Gap 16 BUN 116 H Creatinine 5.8 H Est GFR ( Amer) 11 Est GFR (Non-Af Amer) 9 POC Glucose (mg/dL) 161 H Random Glucose 130 H Calcium 7.6 L Phosphorus 6.4 H Magnesium 2.1 Total Bilirubin 0.6 AST 32 ALT 44 Alkaline Phosphatase 63 Lactate Dehydrogenase 1168 H Total Creatine Kinase 59 Troponin I 18.90 H* D Total Protein 4.8 L Albumin 2.1 L Globulin 2.7 Albumin/Globulin Ratio 0.8 L ANCA Screen c-ANCA Titer p-ANCA Titer Atypical p-ANCA Titer Babesia microti IgG Ab Babesia microti IgM Ab Babesia Interpretation Parvovirus Source Parvovirus B19 IgG Ab Parvovirus B19 IgM Ab Parvovirus B19 DNA PCR Parvovirus Interpret EKG/Cardiology Studies: Cardiology / EKG Studies 08/31/16 07:12 EKG [ELECTROCARDIOGRAM] Stat Comment: Reason For Exam: tachy Critical Care Progress Note - Nutrition Nutrition: Nutrition Category Date Time Status NPO Diet [DIET] Diets 08/31/16 Dinner Ordered Attending/Attestation - Attestation I have personally seen and examined this patient.: Yes I have fully participated in the care of the patient.: Yes I have reviewed all pertinent clinical information: Yes Notes (Text): 08/31/16 17:37 81 y/o M w/ Multiple medical issues NSTEMI w/ Elevated Troponin New CHF w/ Reduced EF 35% A.FIb G.I Bleed Elevated WBC Splenic infarct Jasmeet on CKD ATN Acute respiratory Failure D/w family today and plans for HD, HD catheter placed IN L IJ, US and CXR verified . No complications, 1 stick under sterile precautions . On HFNC 50% 50L, o2 sat> 94% Urine output minimal despite > 100mg Lasix, plans for HD today Metabolic acidosis w/ CKD BUN>100 creat > 5 Afib on Amiodarone ggt w/ HR `100-130 New findings of Splenic infarct on CT abd today- Unclear if there are embolic events from A FIB? Heparin restarted again . Follow PTT Palliative care on Board, pt critical . cc time 72 min
--- NOTE | 2016-08-31 08:45 | RAD ---
HISTORY: INFILTRATE COMPARISON: 08/30/2016 FINDINGS: LUNGS: No change in bilateral perihilar infiltrates. Endotracheal and nasogastric tubes have been removed. Right IJ line unchanged PLEURA: Small left-sided effusion CARDIOVASCULAR: Normal. OSSEOUS STRUCTURES: No significant abnormalities. VISUALIZED UPPER ABDOMEN: Normal. OTHER FINDINGS: None. IMPRESSION: No change in bilateral perihilar infiltrates
[2016-08-31 09:05] LABS: TROPONIN I 18.9 ng/mL
[2016-08-31] MEDS ORDERED: Amiodarone 360 mg/D5W 200 ml 200 ML IV SCH ×2 (10:15→10:30)
[2016-08-31] MEDS ORDERED: Barium Sulfate Susp 2.1% w/v, 2.0% w/w 450 mL Bottle PO ONE (10:30)
--- NOTE | 2016-08-31 12:06 | RAD ---
PROCEDURE: CHEST RADIOGRAPH, 1 VIEW HISTORY: check ogt insertion placement COMPARISON: Plain radiographs performed earlier the same day. FINDINGS: The right IJV line terminates in the SVC. The nasogastric tube is coiled in the stomach. LUNGS: Since the prior examination, there is no significant interval change in pulmonary venous congestion and patchy airspace disease in both lungs. PLEURA: There are bilateral small pleural effusions. No pneumothorax. CARDIOVASCULAR: The heart is normal in size. Atherosclerotic aortic arch calcifications are present. . OSSEOUS STRUCTURES: No significant abnormalities. VISUALIZED UPPER ABDOMEN: Normal. OTHER FINDINGS: None. IMPRESSION: 1. Nasogastric tube is coiled in the stomach. 2. No significant interval change multifocal pneumonia versus pulmonary edema in the lungs and small pleural effusions. Clinical follow-up is advised.
[2016-08-31] MEDS ORDERED: diltiaZEM IVPB 100mg in NS 100 ML IV PRN (12:08)
--- NOTE | 2016-08-31 13:13 | RAD ---
PROCEDURE: Portable chest HISTORY: check ogt placement COMPARISON: 08/31/2016 TECHNIQUE: FINDINGS: Nasogastric tube in satisfactory position. The remainder the exam is unchanged IMPRESSION: The gastric tube is in satisfactory position
[2016-08-31 13:31] LABS: ALB/GLOB RATIO 0.8 (1.1-1.8); BILIRUBIN,TOTAL 0.6 mg/dL (0.2-1.3); CALCIUM 7.6 mg/dL (8.4-10.5); INR 1.32 (0.93-1.08); MAGNESIUM 2.1 mg/dL (1.7-2.2); PHOSPHOROUS 6.4 mg/dL (2.5-4.5); POTASSIUM 3.4 mmol/L (3.6-5.0); TOTAL PROTEIN 4.8 g/dL (5.8-8.3)
--- NOTE | 2016-08-31 14:01 | PN ---
DATE: 08/31/2016 The patient is extubated. He remains dyspneic. PHYSICAL EXAMINATION: VITAL SIGNS: Blood pressure is 112/57. The heart rate is in atrial fibrillation at 120-130. NECK: Negative JVD. LUNGS: Bilateral rhonchi. HEART: Reveals S1, S2. EXTREMITIES: Without change. LABORATORIES: White count is 28,000. Hemoglobin is 10.1. Chemistries: The troponin is down to 18. 9. The BUN and creatinine is 112/5.7. IMPRESSION: 1. Status post respiratory failure. 2. Non-ST segment elevation myocardial infarction. 3. Deterioration of left ventricular function to an ejection fraction of 35%. 4. Renal insufficiency. 5. Sepsis. PLAN: Given these findings, we will start the patient on IV Cardizem today to help control the heart rate. The patient is for access placement today for potential dialysis. Once the access is in, we should start heparin for his atrial fibrillation and his non-STEMI. We parker l consider cardiac catheterization once the sepsis and renal function is stabilized. Bashir Samson MD cc: [id number] TT: 08/31/2016 14:00:35 Confirmation # [id number] Dictation # [id number]
[2016-08-31 14:18] LABS: PARVOVIRUS B19 AB (IGG) 1.7 (<0.9); PARVOVIRUS B19 AB (IGM) 0.1 (<0.9)
[2016-08-31 14:19] LABS: PARTIAL THROMBOPLASTIN TIME 39.9 Seconds (23.7-30.8)
--- NOTE | 2016-08-31 15:31 | CARD ---
APPROVED REPORT EKG Measurement Heart [id number] <Conclusion> Atrial fibrillation with rapid ventricular response Possible Inferior infarct, age undetermined Marked ST abnormality, possible lateral subendocardial injury Abnormal ECG
[2016-08-31] MEDS ORDERED: Lidocaine 2% Inj (20ml) IJ STA (15:33)
--- NOTE | 2016-08-31 15:54 | CT ---
PROCEDURE: CT Abdomen and Pelvis without intravenous contrast HISTORY: r/o abscess COMPARISON: 08/26/2016 TECHNIQUE: Without contrast. Contrast Dose: Radiation dose: Total exam DLP = 941 mGy-cm. This CT exam was performed using one or more of the following dose reduction techniques: Automated exposure control, adjustment of the mA and/or kV according to patient size, and/or use of iterative reconstruction technique. FINDINGS: LOWER THORAX: There is an increase in the bilateral pleural effusions LIVER: Unremarkable. No gross lesion or ductal dilatation. GALLBLADDER AND BILE DUCTS: Gallstones PANCREAS: Unremarkable. No gross lesion or ductal dilatation. SPLEEN: New areas of hypodensity are seen in the spleen suspicious for splenic infarcts. This is best demonstrated on axial image 46 series 2. ADRENALS: Unremarkable. No mass. KIDNEYS AND URETERS: Unremarkable. No hydronephrosis. No solid mass. VASCULATURE: Unremarkable. No aortic aneurysm. BOWEL: Unremarkable. No obstruction. No gross mural thickening. APPENDIX: Unremarkable. Normal appendix. PERITONEUM: Unremarkable. No free fluid. No free air. LYMPH NODES: Unremarkable. No enlarged lymph nodes. BLADDER: Unremarkable. REPRODUCTIVE: Unremarkable. BONES: No acute fracture. OTHER FINDINGS: There is diffuse subcutaneous edema. IMPRESSION: Increasing bilateral pleural effusions. Increasing subcutaneous edema. New area of hypodensity in the spleen suspicious for splenic infarct. No evidence of intra-abdominal abscess or inflammation
--- NOTE | 2016-08-31 16:23 | PN ---
DATE: 08/31/2016 SUBJECTIVE: The patient is seen in the ICU. He is on high flow oxygen. He is awake. He is alert. He is responsive. The patient was extubated yesterday. He was given Lasix 100 mg yesterday. He diuresed 3100. He has been in a negative balance of 2 liters. His clinical condition continues to be critical. His WBC count is up to 28,000. His renal function continues to gradually deteriorate. His BUN is 116 today. His creatinine is 5.8. He remains acidot ic. His pH is 7.28. Finally, patient's family has agreed to dialysis. The patient will receive dialysis once access is a vailable. PHYSICAL EXAMINATION: GENERAL: Elderly male lying in bed in the ICU, on high flow oxygen. VITAL SIGNS: Blood pressure 125/64, heart rate 117, respiratory rate 17, temperature 98.4. HEENT: Normocephalic, atraumatic, positive pallor. NECK: Supple, no JVD. LUNGS: Bilateral equal air entry, bilateral rhonchi, decreased breath sounds at bases. CARDIAC: S1, S2, irregularly irregular, no murmur. ABDOMEN: Soft, positive tenderness in the epigastrium, bowel sounds present, nondistended. EXTREMITIES: No lower extremity edema. LABORATORY DATA: WBC 28, hemoglobin 10, hematocrit 30, platelets 291, polys 92%, lymphs 2%. Sodium 144, potassium 3.4, chloride 115, CO2 16, BUN 116, creatinine 5.8, glucose 130, calcium 7.6, phosphor us 6.4, magnesium 2.1, troponin 18.9. LDH 1168, albumin 2.1. Chest x-ray shows pulmonary venous congestion and patchy airspace disease in both lungs. Heart size is normal. CURRENT MEDICATIONS: Brovana, Cardizem drip, doxycycline 100 q. 12, aspirin, Flagyl, heparin, insulin , Lasix 40 IV q. 12, Lopressor, cefepime 1 gram, amiodarone, Plavix, Protonix, Tylenol. ASSESSMENT: 1. Acute kidney injury superimposed on chronic kidney disease stage IV, worsening renal function. 2. Respiratory failure, status post extubation, still with pulmonary venous congestion, bilateral in filtrates. 3. Sepsis, hypotension, tachycardia. 4. New onset atrial fibrillation. 5. Non-ST elevation myocardial infarction. 6. Rising WBC count with neutrophilia. 7. Hypokalemia. 8. Hyperphosphatemia. 9. Anemia of chronic disease plus gastrointestinal bleed. PLAN: 1. Multiple discussions with the ICU staff. In light of patient's deteriorating renal function, pul monary edema, deteriorating cardiac function, will initiate dialysis as per family's wishes. 2. Followup CT scan of the abdomen to look for a source for infection. 3. Continue Cardizem drip for new onset atrial fibrillation. 4. Continue amiodarone drip. 5. Dialyze with K4 bath. 6. No ultrafiltration today. 7. Remains critically ill. More than 35 minutes were spent in the care of this critically ill patient. Aundrea Alcazar MD cc: [id number] TT: 08/31/2016 16:21:59 Confirmation # [id number] Dictation # [id number] [id number]
[2016-08-31] MEDS ORDERED: Heparin25000 units/250ml 1/2NS 250 ML IV PRN (16:58)
[2016-08-31] MEDS: Amiodarone 360 mg/D5W 200 ml 200 ML IV SCH (17:00)
[2016-08-31] MEDS: Cefepime 1gm in NS 100ml 100 ML IVPB SCH (17:01)
--- NOTE | 2016-08-31 17:04 | CP.PCM.PN ---
Subjective - Date & Time of Evaluation Date of Evaluation: 08/31/16 Time of Evaluation: 08:40 - Subjective Subjective: Comfortable in bed. Has been extubated yesterday but remains on the BiPAP. Was able to communicate with his son. No fevers overnight. Objective - Vital Signs/Intake and Output Vital Signs (last 24 hours): Temp Pulse Resp BP Pulse Ox 98.4 F 117 H 17 125/64 94 L 08/31/16 12:00 08/31/16 13:42 08/31/16 12:30 08/31/16 13:42 08/31/16 12:30 Intake and Output: 08/31/16 08/31/16 06:59 18:59 Intake Total 580 Output Total 2300 Balance -1720 - Medications Medications: Current Medications Acetaminophen (Tylenol 650 Mg Supp) 650 mg RC Q4H PRN PRN Reason: Fever >100.4 F Arformoterol Tartrate (Brovana) 15 mcg IH [id number] [facility] Last Admin: 08/31/16 07:06 Dose: 15 mcg Aspirin (Ecotrin) 81 mg PO DAILY [facility] Last Admin: 08/30/16 10:53 Dose: 81 mg Budesonide (Pulmicort Respules) 0.5 mg IH [id number] [facility] Last Admin: 08/31/16 07:06 Dose: 0.5 mg Clopidogrel Bisulfate (Plavix) 75 mg NG DAILY [facility] Last Admin: 08/31/16 10:07 Dose: Not Given Furosemide (Lasix) 40 mg IVP Q12 [facility] Last Admin: 08/31/16 09:31 Dose: 40 mg Metronidazole (Flagyl) 100 mls @ 100 mls/hr IVPB Q8 YUVAL PRN Reason: Protocol Last Admin: 08/31/16 13:42 Dose: 100 mls/hr Doxycycline Hyclate 100 mg/ (Sodium Chloride) 100 mls @ 100 mls/hr IVPB Q12 YUVAL PRN Reason: Protocol Stop: 09/10/16 10:01 Last Admin: 08/31/16 09:29 Dose: 100 mls/hr Cefepime HCl (Maxipime 1gm) 100 mls @ 100 mls/hr IVPB Q24H YUVAL PRN Reason: Protocol Stop: 09/05/16 15:16 Last Admin: 08/30/16 15:42 Dose: 100 mls/hr Heparin Sodium/Sodium Chloride (Heparin 47897 Units/250ml 1/2 Normal Saline) 250 mls @ 8.616 mls/hr IV .Q24H YUVAL; 12 UNITS/KG/HR PRN Reason: Protocol Last Titration: 08/31/16 09:15 Dose: 0 units/kg/hr Amiodarone HCl/Dextrose (Nexterone 360 Mg In D5w 200 Ml (Premix)) 200 mls @ 16.667 mls/hr IV .Q12H YUVAL; 0.5 MG/MIN PRN Reason: Protocol Amiodarone HCl/Dextrose (Nexterone 360 Mg In D5w 200 Ml (Premix)) 200 mls @ 33.333 mls/hr IV .Q6H YUVAL; 1 MG/MIN PRN Reason: Protocol Last Admin: 08/31/16 10:38 Dose: 33.333 mls/hr diltiaZEM IVPB 100mg in NS (Cardizem 100mg In Ns) 100 mls @ 5 mls/hr IV .Q20H PRN; Protocol; 5 MG/HR PRN Reason: TITRATE PER MD ORDER Heparin Sodium/Sodium Chloride (Heparin 99414 Units/250ml 1/2 Normal Saline) 250 mls @ 12.925 mls/hr IV .[id number] PRN; Protocol; 18 UNITS/KG/HR PRN Reason: ADJUST RATE PER PROTOCOL Insulin Human Lispro (Humalog Low) 0 units SC ACHS YUVAL PRN Reason: Protocol Last Admin: 08/31/16 11:40 Dose: 1 units Metoprolol Tartrate (Lopressor) 5 mg IVP Q6H YUVAL Last Admin: 08/31/16 13:42 Dose: 5 mg Pantoprazole Sodium (Protonix Inj) 40 mg IVP Q12 YUVAL Last Admin: 08/31/16 09:30 Dose: 40 mg Tetrahydrozoline HCl/Zinc Sulfate (Visine 0.05% Opht Soln) 0 ml OU BID PRN PRN Reason: Dry eyes - Labs Labs: 08/31/16 05:20 08/31/16 13:00 PT 14.3 Seconds (9.9-11.8) H 08/31/16 13:00 INR 1.32 (0.93-1.08) H 08/31/16 13:00 APTT 39.9 Seconds (23.7-30.8) H 08/31/16 13:00 - Constitutional Appears: Non-toxic, No Acute Distress - Head Exam Head Exam: NORMAL INSPECTION - Neck Exam Neck Exam: absent: Lymphadenopathy, Meningismus - Respiratory Exam Respiratory Exam: Decreased Breath Sounds - Cardiovascular Exam Cardiovascular Exam: +S1, +S2 - GI/Abdominal Exam GI & Abdominal Exam: Soft. absent: Tenderness Assessment and Plan - Assessment and Plan (Free Text) Plan: Assessment Severe sepsis with hypoxic and ventilator-dependent respiratory failure probably secondary to community-acquired pneumonia R/O aspiration pneumonitis in a patient with acute on chronic renal failure and lactic acidosis as well as possible non-ST elevation myocardial infarction with acute CHF Anemia R/O hemolysis Chronic renal failure history of cerebrovascular accident S/O left carotid endarterectomy history of immune-thrombocytopenic purpura BPH CAD Plan Continue Cefepime, Doxycycline and Flagyl pending final cx results (day 5), to complete 4-7 days of therapy Follow up Babesia tests; Mycoplasma IgM negative; urine Legionella Ag is negative Patient may need cardiac cath but remains an issue because of the renal failure Will continue to follow clinically Overall prognosis is poor
--- NOTE | 2016-08-31 18:25 | RAD ---
HISTORY: Assess line placement. Portable semi erect study 16:47. COMPARISON: Multiple serial examinations preceding the most recent study: August 31, 2016. At 12:53. FINDINGS: LUNGS: Stable multifocal infiltrates/pulmonary edema. PLEURA: No significant interval change compared to the prior examination(s). CARDIOVASCULAR: No significant interval change compared to the prior examination(s). Stable position of right IJ catheter. OSSEOUS STRUCTURES: No significant abnormalities. VISUALIZED UPPER ABDOMEN: Normal. OTHER FINDINGS: Left IJ catheter tip in the SVC within 4 cm of the cavoatrial junction. No adverse findings or pneumothorax. New line stable position of nasogastric tube. IMPRESSION: No adverse findings, negative examination for pneumothorax following left IJ catheter placement. Otherwise no interval change.
[2016-08-31 22:27] LABS: ADD MANUAL DIFF? NO
[2016-08-31 22:32] LABS: BASO # 0.02 [, K/mm3] (0.0-2.0); BASO % 0.1 % (0.0-3.0); MEAN CELL VOLUME 85.3 fL (80.0-105.0); MEAN CORPUSCULAR HEMOGLOBIN 30.4 pg (25.0-35.0); MEAN CORPUSCULAR HGB CONC 35.6 g/dl (31.0-37.0); MEAN PLATELET VOLUME 13.4 fl (7.0-11.0); PLATELET COUNT 243 [, 10^3/uL] (120.0-450.0); RED CELL DISTRIBUTION WIDTH 15.9 % (11.5-14.5)
[2016-08-31 22:38] LABS: ALB/GLOB RATIO 0.8 (1.1-1.8); BILIRUBIN,TOTAL 0.5 mg/dL (0.2-1.3); CALCIUM 7.2 mg/dL (8.4-10.5); MAGNESIUM 1.9 mg/dL (1.7-2.2); PHOSPHOROUS 4.7 mg/dL (2.5-4.5); POTASSIUM 3.5 mmol/L (3.6-5.0); TOTAL PROTEIN 4.1 g/dL (5.8-8.3)
[2016-08-31 22:44] LABS: EOS % 0.1 % (1.5-5.0); GRAN % 94.3 % (50.0-68.0); LYMPH % 1.8 % (22.0-35.0); MONO % 3.7 % (1.0-6.0)
[2016-08-31 22:48] LABS: LYMPH # 0.8 (1.2-3.4); MONO # 1.4 (0.1-0.6)
[2016-08-31 22:50] LABS: WHITE BLOOD COUNT 38.3 [, 10^3/ul] (4.5-11.0)
[2016-08-31 22:54] LABS: TROPONIN I 21.2 ng/mL
[2016-08-31 23:04] LABS: INR 1.65 (0.93-1.08)
[2016-08-31 23:11] LABS: PARTIAL THROMBOPLASTIN TIME > 180.0 Seconds (23.7-30.8)
[2016-09-01 00:06] LABS: HEMATOCRIT 25.2 % (42.0-52.0); MEAN CELL VOLUME 85.4 fL (80.0-105.0); MEAN CORPUSCULAR HEMOGLOBIN 30.5 pg (25.0-35.0); MEAN CORPUSCULAR HGB CONC 35.7 g/dl (31.0-37.0); MEAN PLATELET VOLUME 13.1 fl (7.0-11.0); PLATELET COUNT 259 [, 10^3/uL] (120.0-450.0); RED CELL DISTRIBUTION WIDTH 16.2 % (11.5-14.5)
--- NOTE | 2016-09-01 00:16 | PN ---
DATE: 08/31/2016 REFERRING PHYSICIAN: Dr. Myers. SUBJECTIVE: He is lying in the bed, head at 45 degrees, lethargic, arousable on high flow nasal adalberto sharon oxygen. Has a cough, hard time clearing, pulmonary secretion. No chest pain, no hemoptysis, no hematemesis, no hematuria, no diarrhea, no new melena, has leg swelling. OBJECTIVE: GENERAL: No acute distress. VITAL SIGNS: Temperature is 98, heart is 109, respiratory rate is 23, blood pressure 103/45, pulse o x 98% on high flow nasal cannula oxygen. HEENT: Moist mucous membranes. Crowded airway. Mallampati score is 4. NECK: Supple. No JVD. LUNGS: ____ crackles or rhonchi. HEART: S1, S2. ABDOMEN: Soft, nontender. No organomegaly. EXTREMITIES: There is edema. NEUROLOGIC: Lethargic, arousable. MEDICATIONS: He is on Brovana 15 mcg inhaled twice a day, doxycycline 100 mg twice a day, aspirin 81 mg daily, Flagyl 500 mg q. 8 hours, heparin weight based protocol, Lasix 40 mg IV q. 12 hours, meto prolol tartrate 5 mg IV q. 6 hours, cefepime 1 g IV q. 24 hours, is on IV amiodarone, Plavix 75 mg da alex, Protonix 40 mg q. 12 hours, Pulmicort inhaled twice a day, Tylenol on a p.r.n. basis. LABORATORY DATA: Shows hemoglobin 8.9, hematocrit 25.0, WBC 38,000, platelet count is 243. INR 1.32 . PTT 38. Blood gases shows pH 7.28, pCO2 42, O2 59, this is on high flow nasal cannula oxygen. So dium 140, potassium 3.5, chloride 109, bicarbonate 21, BUN 76, creatinine 4.0, glucose 116, calcium 7 .2, phosphorus 4.7, AST is 26, ALT 43, alkaline phosphatase is 56. Troponin 21. Albumin is 1.8. MICROBIOLOGY: Blood culture, sputum culture is unremarkable. Stool for C. diff been negative. Ches t x-ray done today shows left IJ catheter placement, has multifocal of pulmonary infiltrate, also a s mall pleural effusion. Has a CT of the abdomen and pelvis done today, which suggested of pleural eff usion and increased subcutaneous emphysema. This may be splenic infarct. IMPRESSION AND PLAN: Status post hemorrhagic shock, had peptic ulcer disease status post EGD at [facility] ent, had a known bleeding ulcer, multilobar pneumonia with probably pulmonary edema, cardiomyopathy, renal failure, has dialysis done today, respiratory failure requiring high flow nasal cannula oxygen , metabolic acidosis, renal failure, very poor prognosis. Discussed with the nursing staff. For now continue high flow nasal cannula oxygen, p.r.n. mouth suction may use BiPAP while sleeping. He is on IV amiodarone for persistent atrial fibrillation with rapid ventricular response, high risk for thro mboembolic disease, ulcer symptom at risk of bleed with gastric ulcer. Follow up ABG, chest x-ray, C BC, CMP in the morning. Critical care time ____. Will follow with you. Shawn Ruff MD cc: [phone] TT: 09/01/2016 00:16:10 Confirmation # [id number] Dictation # [id number] [email or web address]
[2016-09-01 00:28] LABS: ADD MANUAL DIFF? YES
[2016-09-01 00:29] LABS: WHITE BLOOD COUNT 36.2 [, 10^3/ul] (4.5-11.0)
[2016-09-01 01:28] LABS: BAND 4 % (0-2); NEUTROPHIL 91 % (50.0-70.0); PLATELET ESTIMATE NORMAL (NORMAL)
[2016-09-01 01:29] LABS: LARGE PLATELETS PRESENT
[2016-09-01] MEDS: Metoprolol 1 mg/ml Inj IVP SCH ×4 (02:05→20:35)
--- NOTE | 2016-09-01 02:54 | CP.PCM.PCO ---
Physician Communication Note - Physician Communication Note Physician Communication Note: Pt had moderate black BM overnight; Thus, Heparin stopped and ASA held
[2016-09-01] MEDS: Amiodarone 360 mg/D5W 200 ml 200 ML IV SCH ×2 (04:20→18:14)
--- NOTE | 2016-09-01 05:28 | CP.PCM.PN ---
Subjective - Date & Time of Evaluation Date of Evaluation: 08/31/16 Time of Evaluation: 17:00 - Subjective Subjective: Lethargic but arousable Objective - Vital Signs/Intake and Output Vital Signs (last 24 hours): Temp Pulse Resp BP Pulse Ox 98.1 F 112 H 31 H 102/43 L 91 L 09/01/16 04:00 09/01/16 05:00 09/01/16 05:00 09/01/16 05:00 09/01/16 05:00 Intake and Output: 08/31/16 09/01/16 18:59 06:59 Intake Total 697 Output Total 950 Balance -253 - Medications Medications: Current Medications Acetaminophen (Tylenol 650 Mg Supp) 650 mg RC Q4H PRN PRN Reason: Fever >100.4 F Arformoterol Tartrate (Brovana) 15 mcg IH [id number] [facility] Last Admin: 08/31/16 19:51 Dose: 15 mcg Aspirin (Ecotrin) 81 mg PO DAILY [facility] Last Admin: 08/31/16 10:05 Dose: 81 mg Budesonide (Pulmicort Respules) 0.5 mg IH [id number] [facility] Last Admin: 08/31/16 19:51 Dose: 0.5 mg Clopidogrel Bisulfate (Plavix) 75 mg NG DAILY [facility] Last Admin: 08/31/16 10:07 Dose: Not Given Furosemide (Lasix) 40 mg IVP Q12 [facility] Last Admin: 08/31/16 21:26 Dose: 40 mg Metronidazole (Flagyl) 100 mls @ 100 mls/hr IVPB Q8 YUVAL PRN Reason: Protocol Last Admin: 08/31/16 21:39 Dose: 100 mls/hr Doxycycline Hyclate 100 mg/ (Sodium Chloride) 100 mls @ 100 mls/hr IVPB Q12 YUVAL PRN Reason: Protocol Stop: 09/10/16 10:01 Last Admin: 08/31/16 21:45 Dose: 100 mls/hr Cefepime HCl (Maxipime 1gm) 100 mls @ 100 mls/hr IVPB Q24H YUVAL PRN Reason: Protocol Stop: 09/05/16 15:16 Last Admin: 08/31/16 17:01 Dose: 100 mls/hr Amiodarone HCl/Dextrose (Nexterone 360 Mg In D5w 200 Ml (Premix)) 200 mls @ 16.667 mls/hr IV .Q12H YUVAL; 0.5 MG/MIN PRN Reason: Protocol Last Admin: 08/31/16 17:00 Dose: 16.667 mls/hr Amiodarone HCl/Dextrose (Nexterone 360 Mg In D5w 200 Ml (Premix)) 200 mls @ 33.333 mls/hr IV .Q6H YUVAL; 1 MG/MIN PRN Reason: Protocol Last Admin: 08/31/16 10:38 Dose: 33.333 mls/hr Insulin Human Lispro (Humalog Low) 0 units SC ACHS YUVAL PRN Reason: Protocol Last Admin: 08/31/16 21:38 Dose: Not Given Metoprolol Tartrate (Lopressor) 5 mg IVP Q6H YUVAL Last Admin: 09/01/16 02:05 Dose: 5 mg Pantoprazole Sodium (Protonix Inj) 40 mg IVP Q12 YUVAL Last Admin: 08/31/16 21:26 Dose: 40 mg Tetrahydrozoline HCl/Zinc Sulfate (Visine 0.05% Opht Soln) 0 ml OU BID PRN PRN Reason: Dry eyes - Labs Labs: 08/31/16 23:30 08/31/16 22:26 PT 17.8 Seconds (9.9-11.8) H 08/31/16 22:26 INR 1.65 (0.93-1.08) H 08/31/16 22:26 APTT > 180.0 Seconds (23.7-30.8) H* 08/31/16 22:26 - Head Exam Head Exam: ATRAUMATIC - Eye Exam Eye Exam: Normal appearance - ENT Exam ENT Exam: Mucous Membranes Dry - Respiratory Exam Respiratory Exam: Rhonchi - GI/Abdominal Exam GI & Abdominal Exam: Normal Bowel Sounds - Extremities Exam Extremities Exam: Pedal Edema Assessment and Plan (1) Anemia Assessment & Plan: GI blood loss, anemia of CKD normal iron/b12/folate stores transfusion support PRN Status: Acute (2) Leukocytosis Assessment & Plan: on antibiotics Status: Acute (3) ITP (idiopathic thrombocytopenic purpura) Assessment & Plan: was on promacta which is currently held given normal plt count Status: Acute
[2016-09-01] MEDS: metroNIDAZOLE IV 500 mg/100 ml 100 ML IVPB SCH ×3 (05:55→21:20)
[2016-09-01 06:04] LABS: BASO # 0.01 [, K/mm3] (0.0-2.0); EOS % 0.1 % (1.5-5.0); GRAN # 28.32 (1.4-6.5); GRAN % 92.5 % (50.0-68.0); HEMATOCRIT 25.1 % (42.0-52.0); LYMPH # 0.9 (1.2-3.4); MEAN CELL VOLUME 86.6 fL (80.0-105.0); MEAN CORPUSCULAR HGB CONC 35.9 g/dl (31.0-37.0); MEAN PLATELET VOLUME 12.8 fl (7.0-11.0); MONO # 1.4 (0.1-0.6); MONO % 4.4 % (1.0-6.0); PLATELET COUNT 206 [, 10^3/uL] (120.0-450.0); RED CELL DISTRIBUTION WIDTH 16.3 % (11.5-14.5)
[2016-09-01 06:11] LABS: WHITE BLOOD COUNT 30.6 [, 10^3/ul] (4.5-11.0)
[2016-09-01 06:13] LABS: INR 1.64 (0.93-1.08); PARTIAL THROMBOPLASTIN TIME 46.6 Seconds (23.7-30.8)
[2016-09-01 06:25] LABS: ALB/GLOB RATIO 0.8 (1.1-1.8); BILIRUBIN,TOTAL 0.5 mg/dL (0.2-1.3); CALCIUM 7.3 mg/dL (8.4-10.5); MAGNESIUM 1.9 mg/dL (1.7-2.2); PHOSPHOROUS 5.6 mg/dL (2.5-4.5); POTASSIUM 3.5 mmol/L (3.6-5.0); TOTAL PROTEIN 4.3 g/dL (5.8-8.3)
[2016-09-01 07:00] LABS: ARTERIAL BLOOD GAS HCO3 16.6 mmol/L (21-28); ARTERIAL BLOOD GAS O2 CAPACITY 12.4 mL/dl (16-24); ARTERIAL BLOOD GAS PH 7.43 (7.35-7.45); ARTERIAL BLOOD HGB O2 SAT 86.7 % (95.0-98.0); CARBOXYHEMOGLOBIN 1.7 % (0.5-1.5); METHEMOGLOBIN 0.6 % (0.0-3.0)
[2016-09-01 07:07] LABS: ADD MANUAL DIFF? NO
[2016-09-01] MEDS: Arformoterol 15 mcg/2 ml Inh Sol IH SCH ×2 (07:10→20:48)
[2016-09-01] MEDS: Budesonide 0.5 mg/2 ml Inhal Susp UD IH SCH ×2 (07:10→20:49)
[2016-09-01] MEDS: Heparin25000 units/250ml 1/2NS 250 ML IV PRN (07:30)
--- NOTE | 2016-09-01 07:45 | PN ---
DATE: 08/31/2016 The patient is an 81-year-old male. The patient was seen and examined in his room, in the ICU, having NG tube feeding, is on high flow oxygen, is awake, alert, but cannot talk because of NG tube in the mouth, have diarrhea greenish type. Moving his extremities. Got Lasix, diuresed 3100. Getting improving, but still is critical. PHYSICAL EXAMINATION: VITAL SIGNS: Blood pressure 125/ 80 , heart rate 117, respiratory rate 17, temperature 98.4. HEENT: Head normocephalic, atraumatic. Eyes: PERRLA. Extraocular muscles intact. Conjunctivae are clear. Nose patent. Mucous membranes moist. Has NG tube to the mouth, getting feeding. NECK: Supple. No carotid bruit, no JVD, no thyromegaly. LUNGS: bilateral rhonchi, decreased breath sounds at the bases. HEART: S1, S2 positive, irregularly irregular. No murmur. ABDOMEN: Soft, positive tenderness in the epigastrium. Bowel sounds are present. Nondistended, no organomegaly. EXTREMITIES: No edema, no cyanosis. NEUROLOGIC: The patient is awake, alert, but cannot talk because of mechanical problem. LABORATORIES: White blood cells 28, hemoglobin 10, hematocrit 30, platelets 291. Sodium 144, potassium 3.4, BUN 116, creatinine 5.8, glucose 130, magnesium is 2.1. Troponin 18.9. LDH 1158. MEDICATIONS: Brovana, Cardizem drip, doxycycline, aspirin, Flagyl, heparin, insulin, Lasix, Lopressor, cefepime, amiodarone, Plavix, Protonix, Tylenol. ASSESSMENT AND PLAN: The patient is an 81-year-old male with acute kidney injury superimposed on chronic kidney disease stage IV, worsening renal function , respiratory failure, status post extubation, still with pulmonary venous congestion, having high flow oxygen, bilateral infiltrates, sepsis, hypotension , tachycardia, history of gastrointestinal bleeding, got multiple units of packed red blood cells, new onset atrial fibrillation, non-ST elevation myocardial infarction, rising white blood cell count with neutrophilia, hypokalemia, phosphatemia, anemia of chronic disease. Discussion done with nursing staff. Pulmonary edema, deteriorating cardiac function and renal function. Will need dialysis as per family wishes. Followup CT scan of the abdomen to look at the source for infection. Continue Cardizem drip for new onset of atrial fibrillation. Continue amiodarone drip. Dialyze with 4K bath as per Dr. Alcazar. No ultrafiltration today. Remains critically ill. Even he is improving, but very slowly. Seen by Dr. Zurdo Pierce, ID. Continue cefepime, doxycycline, Flagyl pending on final culture, day 5 and completing 4- 7 days of therapy. Follow up with babesia test, mycoplasma. Immunoglobulin M is negative. Urine legionella antigen is negative. The patient maybe needs cardiac catheterization, but remains an issue because of the renal failure and due to critical condition. Overall prognosis is poor. Appreciated Dr. Zurdo Pierce, Dr. Alcazar, Dr. Bashir Samson and Dr. Ruff's input. Will follow up. Sana Myers MD cc: [id number] TT: 09/01/2016 07:45:06 Confirmation # [id number] Dictation # [id number] en MTDD
[2016-09-01] MEDS: Insulin Lispro (humaLOG) LOW Coverage SC SCH ×4 (08:02→22:00)
--- NOTE | 2016-09-01 09:16 | PN ---
DATE: 08/31/2016 Initial/first dialysis note. SUBJECTIVE: The patient is seen in the ICU at the start of dialysis. He is on high flow oxygen. He is awake, alert. He denies any chest pain, palpitations at this time. His heart rate is ranging be tween 120-130. His blood pressure is 119/75. The patient has a history of paroxysmal atrial fibrillation. He went into atrial fibrillation early this morning. He has been in AFib all day. He is currently on amiodarone drip. Cardizem drip has n ot been started. Blood pressure remains low. The patient is not in any kind of distress. Dialysis initiated with a potassium 4 bath. Blood flow rate is 250. No ultrafiltration today. So f ar, the patient is tolerating dialysis well. First dialysis was started at 5:15 p.m. today. Aundrea Alcazar MD cc: [phone] TT: 09/01/2016 09:15:18 Confirmation # [id number] Dictation # [id number] en
--- NOTE | 2016-09-01 09:20 | PN ---
DATE: 08/31/2016 SUBJECTIVE: This patient was seen and evaluated earlier. Discussed with the resident. Also, subsequently, I got a call from the resident regarding the patient's CAT scan finding. PHYSICAL EXAMINATION: VITAL SIGNS: The patient's heart rate is about 117, respirations 17, blood pressure 125/64, afebrile. HEENT: Atraumatic, anicteric. There is a facial droop. NECK: Supple. HEART: S1, S2 heard, irregular. LUNGS: Bilateral air entry present. A few scattered rhonchi present. ABDOMEN: Soft. There is no tenderness present. EXTREMITIES: No edema. LABORATORY DATA: Hemoglobin is 10.1, hematocrit 29.7, WBC is 28, platelet count is 291. Chemistry at the time of examination in the 116. In the morning her BUN was 112, creatinine was 5.7. IMPRESSION: This 81-year-old patient is admitted with gastrointestinal bleeding , severe anemia and [id number] myocardial infarction. Endoscopy showed gastric ulcers. The patient on Cardizem drip to control the heart rate The patient is presently on Plavix and aspirin. Started on amiodarone. RECOMMENDATIONS: Close followup of the hemoglobin and hematocrit. If the patient had a significant drop in blood count then we may have to consider holding off anticoagulation. Since the patient is on Plavix, he is not amenable for any cauterization of any bleeding ulcer. Only treatment option available for the patient is to be the clipping of the vessels. So cautious anticoagulation to be considered. The patient is now on amiodarone and renal dysfunction. Monitor closely the hepatic function and discussed with the residents. Thank you very much for allowing us to participate in the care of the patient. Eleonora Dillard MD cc: [id number] TT: 09/01/2016 09:20:11 Confirmation # [id number] Dictation # [id number] isis LEVY
--- NOTE | 2016-09-01 09:28 | CP.CCUPN ---
Addendum entered and electronically signed by Izabela Luis DO 09/01/16 13:20 : Correction: 1.5L water removed from HD today Back on Bipap RR 14/7/60% Original Note: <Izabela Luis - Last Filed: 09/01/16 12:49> CCU Subjective - Physician Review Subjective (Free Text): 08/28/16 09:19 Intubated yesterday for abdominal agonal breath. 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, new compared echo 1 year ago 08/30/16 13:53 No Melena overnight CXR - decreased pulm edema with lasix q12 plus 100 IV x 1 HR 60s, BP 100s extubated, on NRB 12L, HR 62, POx 97, BP in high 90s 08/31/16 07:47 Overnight, Got deniz lasix. In addition lopressor x 1 for Sinus tachy at 130s. Bipap at night. This am at A-fib RVR 140s - given bicarb, amiodarone 150 x 1. On amiodarone gtt. Breathing with crackles, pulm suction out pink froths, given 20 Lasix x 1 U/O 200 overnight - oliguric markedly decrease u/o 12/7/35% sat 95 08/31/16 12:47 On high flow, 50L, 40% Finished 2nd bottle of oral contrast for CT abd/pelvis Will go to radiology at 2:30 Shiley placement afterwards HD to be followed. Notified Dr. Alcazar WBC 28, still high today. 1 BM overnight and 1 BM this afternoon, dark bilous. Sent for C diff testing again. 09/01/16 09:26 1 black BM overnight, large quantity, black, watery. Hold heparin at 3AM, restart at 7AM T 99.9 AM. procal sent Not on bipap overnight. On HFNC 40%, 50L HR 80s. suction out white floths, no pink. Add 1 u pRBC during HD today 1 non-sustained a-fib at noon, pt already on heparin. HR returned to 80s. CCU Objective - Vital Signs / Intake & Output Vital Signs (Last 4 hours): Vital Signs Temp Pulse Resp BP Pulse Ox 09/01/16 09:00 24 119/54 L 91 L 09/01/16 08:45 80 26 H 117/56 L 81 L 09/01/16 08:44 26 H 119/53 L 87 L 09/01/16 08:30 25 H 114/50 L 94 L 09/01/16 08:19 82 112/50 L 09/01/16 08:14 83 26 H 112/50 L 93 L 09/01/16 08:07 91 H 31 H 91 L 09/01/16 08:00 99.9 F H 87 21 122/53 L 96 09/01/16 07:30 87 25 H 120/48 L 97 09/01/16 07:15 27 H 09/01/16 07:00 87 26 H 115/49 L 92 L 09/01/16 06:30 86 26 H 118/47 L 94 L 09/01/16 06:00 85 27 H 114/53 L 93 L 09/01/16 05:58 85 26 H 104/48 L 93 L 09/01/16 05:30 112 H 31 H 86/47 L 91 L Intake and Output (Last 8hrs): Intake & Output 08/31/16 09/01/16 09/01/16 22:59 06:59 14:59 Intake Total 697 495 Output Total 950 200 Balance -253 295 Weight 170 lb 4.8 oz Intake: IV 637 495 Right Internal Jugular 637 495 Oral 0 Other 60 Output: Urine 850 200 Urethral (Rodrigez) 850 200 Stool 100 Emesis 0 Oral Regurgitation 0 Other 0 Other: Voiding Method Indwelling Catheter # Bowel Movements 1 1 - Physical Exam Head: Positive for: Atraumatic, Normocephalic Pupils: Positive for: PERRL Extroacular Muscles: Positive for: EOMI Conjunctiva: Positive for: Other (conjunctival pallor) Mouth: Positive for: Moist Mucous Membranes Neck: Positive for: MIDLINE TENDERNESS (RIJ in place) Respiratory/Chest: Positive for: Clear to Auscultation, Good Air Exchange, Rales , Rhonchi. Negative for: Respiratory Distress, Accessory Muscle Use, Retracting Cardiovascular: Positive for: Normal S1, S2, Irregular Rhythm, Tachycardic ( occasional, during HD, non-sustained). Negative for: Murmurs Abdomen: Positive for: Normal Bowel Sounds. Negative for: Tenderness, Distention, Peritoneal Signs Rectal: Positive for: Hemorrhoids (external). Negative for: Normal Rectal Tone (dilated rectal tone, soft prostate), Fissures Back: Positive for: Normal Inspection Upper Extremity: Negative for: Edema, Erythema Lower Extremity: Positive for: Edema (2+ Pitting edema of left LE, with long healed scars) Neurological: Negative for: Speech Normal (per son, slurred) Skin: Positive for: Warm, Dry, Normal Color, Abrasion (on left UE). Negative for: Rashes Psychiatric: Positive for: Alert (responsive to son and commands in Malay) - Medications Active Medications: Active Medications Generic Name Dose Route Start Last Admin Trade Name Freq PRN Reason Stop Dose Admin Acetaminophen 650 mg 08/26/16 16:19 Tylenol 650 Mg Supp RC Q4H PRN Fever >100.4 F Arformoterol Tartrate 15 mcg 08/26/16 20:00 09/01/16 07:10 Brovana IH 15 mcg [id number] DENIZ Administration Artificial Tears 1 ml 09/01/16 12:30 Artificial Tears OU Q6H DENIZ Aspirin 81 mg 08/29/16 10:00 08/31/16 10:05 Ecotrin PO 81 mg DAILY DENIZ Administration Budesonide 0.5 mg 08/26/16 20:00 09/01/16 07:10 Pulmicort Respules IH 0.5 mg [id number] DENIZ Administration Clopidogrel Bisulfate 75 mg 08/29/16 10:00 08/31/16 10:07 Plavix NG Not Given DAILY DENIZ Furosemide 40 mg 08/28/16 22:00 08/31/16 21:26 Lasix IVP 40 mg Q12 DENIZ Administration Metronidazole 100 mls @ 100 mls/hr 08/26/16 15:00 09/01/16 05:55 Flagyl IVPB 100 mls/hr Q8 DENIZ Administration Protocol Doxycycline Hyclate 100 mg/ 100 mls @ 100 mls/hr 08/27/16 10:00 08/31/16 21:45 Sodium Chloride IVPB 09/10/16 10:01 100 mls/hr Q12 DENIZ Administration Protocol Cefepime HCl 100 mls @ 100 mls/hr 08/29/16 15:15 08/31/16 17:01 Maxipime 1gm IVPB 09/05/16 15:16 100 mls/hr Q24H DENIZ Administration Protocol Amiodarone HCl/Dextrose 200 mls @ 16.667 mls/hr 08/31/16 16:15 09/01/16 04:20 Nexterone 360 Mg In D5w 200 Ml (Premix) IV 16.667 mls/hr .Q12H DENIZ Administration Protocol 0.5 MG/MIN Amiodarone HCl/Dextrose 200 mls @ 33.333 mls/hr 08/31/16 10:30 08/31/16 10:38 Nexterone 360 Mg In D5w 200 Ml (Premix) IV 33.333 mls/hr .Q6H DENIZ Administration Protocol 1 MG/MIN Heparin Sodium/Sodium Chloride 250 mls @ 13.904 mls/hr 09/01/16 07:19 09/01/16 07:30 Heparin 17729 Units/250ml 1/2 Normal Saline IV 11.587 mls/hr .[id number] PRN Administration ADJUST RATE PER PROTOCOL Protocol 18 UNITS/KG/HR Insulin Human Lispro 0 units 08/26/16 22:00 09/01/16 08:02 Humalog Low SC 1 units ACHS DENIZ Administration Protocol Metoprolol Tartrate 5 mg 08/29/16 14:00 09/01/16 08:19 Lopressor IVP 5 mg Q6H DENIZ Administration Pantoprazole Sodium 40 mg 08/26/16 22:00 08/31/16 21:26 Protonix Inj IVP 40 mg Q12 DENIZ Administration Tetrahydrozoline HCl/Zinc Sulfate 0 ml 08/30/16 21:02 Visine 0.05% Opht Soln OU BID PRN Dry eyes - Patient Studies Lab Studies: Microbiology Studies 08/29/16 16:30 Gram Stain - Final Sputum Sputum Culture - Final NORMAL ORAL LISA 08/27/16 09:45 Blood Culture - Preliminary Blood NO GROWTH AFTER 4 DAYS 08/27/16 09:45 Blood Culture - Preliminary Blood NO GROWTH AFTER 4 DAYS Lab Studies 09/01/16 09/01/16 08/31/16 Range/Units 06:55 05:40 23:30 WBC 30.6 H* 36.2 H* (4.5-11.0) 10^3/ul RBC 2.90 L 2.95 L (3.5-6.1) 10^6/uL Hgb 9.0 L 9.0 L (14.0-18.0) gm/dL Hct 25.1 L 25.2 L (42.0-52.0) % MCV 86.6 85.4 (80.0-105.0) fL MCH 31.0 30.5 (25.0-35.0) pg MCHC 35.9 35.7 (31.0-37.0) g/dl RDW 16.3 H 16.2 H (11.5-14.5) % Plt Count 206 259 (120.0-450.0) 10^3/uL MPV 12.8 H 13.1 H (7.0-11.0) fl Gran % 92.5 H (50.0-68.0) % Lymph % (Auto) 3.0 L (22.0-35.0) % [place] % (Auto) 4.4 (1.0-6.0) % Eos % (Auto) 0.1 L (1.5-5.0) % Baso % (Auto) 0.0 (0.0-3.0) % Gran # 28.32 H (1.4-6.5) Lymph # 0.9 L (1.2-3.4) [place] # 1.4 H (0.1-0.6) Eos # 0.0 (0.0-0.7) Baso # 0.01 (0.0-2.0) K/mm3 Neutrophils % (Manual) 91 H (50.0-70.0) % Band Neutrophils % 4 H (0-2) % Lymphocytes % (Manual) 3 L (22.0-35.0) % Monocytes % (Manual) 2 (1.0-6.0) % Platelet Evaluation Normal (NORMAL) Large Platelets Present PT 17.7 H (9.9-11.8) Seconds INR 1.64 H (0.93-1.08) APTT 46.6 H (23.7-30.8) Seconds pCO2 25 L (35-45) mm/Hg pO2 54.0 L (80-100) mm/Hg HCO3 16.6 L (21-28) mmol/L ABG pH 7.43 (7.35-7.45) ABG Total CO2 17.4 L (22-28) mmol.L ABG O2 Saturation 88.7 L (95-98) % ABG O2 Content 11.0 L (15-23) ML/dl ABG Base Excess -6.6 L (-2.0-3.0) mmol/L ABG Hemoglobin 9.0 L (11.7-17.4) g/dL ABG Carboxyhemoglobin 1.7 H (0.5-1.5) % POC ABG HHb (Measured) 11.0 H (0-5) % ABG Methemoglobin 0.6 (0.0-3.0) % ABG O2 Capacity 12.4 L (16-24) mL/dl Hgb O2 Saturation 86.7 L (95.0-98.0) % FiO2 40.0 % Sodium 140 (132-148) mmol/L Potassium 3.5 L (3.6-5.0) mmol/L Chloride 108 H (98-107) mmol/L Carbon Dioxide 19 L (21-33) mmol/L Anion Gap 17 (10-20) BUN 78 H (7-21) mg/dL Creatinine 4.4 H (0.5-1.4) mg/dL Est GFR ( Amer) 16 Est GFR (Non-Af Amer) 13 POC Glucose (mg/dL) (65-110) mg/dL Random Glucose 129 H (70-110) mg/dL Calcium 7.3 L (8.4-10.5) mg/dL Phosphorus 5.6 H (2.5-4.5) mg/dL Magnesium 1.9 (1.7-2.2) mg/dL Total Bilirubin 0.5 (0.2-1.3) mg/dL AST 28 (15-59) U/L ALT 45 (7-56) U/L Alkaline Phosphatase 61 (38-133) U/L Troponin I 22.00 H* ng/mL Total Protein 4.3 L (5.8-8.3) g/dL Albumin 1.9 L (3.0-4.8) g/dL Globulin 2.4 gm/dL Albumin/Globulin Ratio 0.8 L (1.1-1.8) Parvovirus Source (()) Parvovirus B19 IgG Ab (<0.9) Parvovirus B19 IgM Ab (<0.9) Parvovirus B19 DNA PCR (()) Parvovirus Interpret (()) 1 08/31/16 08/31/16 08/31/16 Range/Units 22:26 21:36 17:56 WBC 38.3 H* D (4.5-11.0) 10^3/ul RBC 2.93 L (3.5-6.1) 10^6/uL Hgb 8.9 L (14.0-18.0) gm/dL Hct 25.0 L (42.0-52.0) % MCV 85.3 (80.0-105.0) fL MCH 30.4 (25.0-35.0) pg MCHC 35.6 (31.0-37.0) g/dl RDW 15.9 H (11.5-14.5) % Plt Count 243 (120.0-450.0) 10^3/uL MPV 13.4 H (7.0-11.0) fl Gran % 94.3 H (50.0-68.0) % Lymph % (Auto) 1.8 L (22.0-35.0) % [place] % (Auto) 3.7 (1.0-6.0) % Eos % (Auto) 0.1 L (1.5-5.0) % Baso % (Auto) 0.1 (0.0-3.0) % Gran # 36.00 H (1.4-6.5) Lymph # 0.8 L (1.2-3.4) [place] # 1.4 H (0.1-0.6) Eos # 0.0 (0.0-0.7) Baso # 0.02 (0.0-2.0) K/mm3 Neutrophils % (Manual) (50.0-70.0) % Band Neutrophils % (0-2) % Lymphocytes % (Manual) (22.0-35.0) % Monocytes % (Manual) (1.0-6.0) % Platelet Evaluation (NORMAL) Large Platelets PT 17.8 H (9.9-11.8) Seconds INR 1.65 H (0.93-1.08) APTT > 180.0 H* (23.7-30.8) Seconds pCO2 (35-45) mm/Hg pO2 (80-100) mm/Hg HCO3 (21-28) mmol/L ABG pH (7.35-7.45) ABG Total CO2 (22-28) mmol.L ABG O2 Saturation (95-98) % ABG O2 Content (15-23) ML/dl ABG Base Excess (-2.0-3.0) mmol/L ABG Hemoglobin (11.7-17.4) g/dL ABG Carboxyhemoglobin (0.5-1.5) % POC ABG HHb (Measured) (0-5) % ABG Methemoglobin (0.0-3.0) % ABG O2 Capacity (16-24) mL/dl Hgb O2 Saturation (95.0-98.0) % FiO2 % Sodium 140 (132-148) mmol/L Potassium 3.5 L (3.6-5.0) mmol/L Chloride 109 H (98-107) mmol/L Carbon Dioxide 21 (21-33) mmol/L Anion Gap 14 (10-20) BUN 76 H (7-21) mg/dL Creatinine 4.0 H (0.5-1.4) mg/dL Est GFR ( Amer) 17 Est GFR (Non-Af Amer) 14 POC Glucose (mg/dL) 142 H 168 H (65-110) mg/dL Random Glucose 116 H (70-110) mg/dL Calcium 7.2 L (8.4-10.5) mg/dL Phosphorus 4.7 H (2.5-4.5) mg/dL Magnesium 1.9 (1.7-2.2) mg/dL Total Bilirubin 0.5 (0.2-1.3) mg/dL AST 26 (15-59) U/L ALT 43 (7-56) U/L Alkaline Phosphatase 56 (38-133) U/L Troponin I 21.20 H* ng/mL Total Protein 4.1 L (5.8-8.3) g/dL Albumin 1.8 L (3.0-4.8) g/dL Globulin 2.3 gm/dL Albumin/Globulin Ratio 0.8 L (1.1-1.8) Parvovirus Source (()) Parvovirus B19 IgG Ab (<0.9) Parvovirus B19 IgM Ab (<0.9) Parvovirus B19 DNA PCR (()) Parvovirus Interpret (()) 1 08/31/16 08/31/16 08/31/16 Range/Units 17:14 13:00 11:28 WBC (4.5-11.0) 10^3/ul RBC (3.5-6.1) 10^6/uL Hgb (14.0-18.0) gm/dL Hct (42.0-52.0) % MCV (80.0-105.0) fL MCH (25.0-35.0) pg MCHC (31.0-37.0) g/dl RDW (11.5-14.5) % Plt Count (120.0-450.0) 10^3/uL MPV (7.0-11.0) fl Gran % (50.0-68.0) % Lymph % (Auto) (22.0-35.0) % [place] % (Auto) (1.0-6.0) % Eos % (Auto) (1.5-5.0) % Baso % (Auto) (0.0-3.0) % Gran # (1.4-6.5) Lymph # (1.2-3.4) [place] # (0.1-0.6) Eos # (0.0-0.7) Baso # (0.0-2.0) K/mm3 Neutrophils % (Manual) (50.0-70.0) % Band Neutrophils % (0-2) % Lymphocytes % (Manual) (22.0-35.0) % Monocytes % (Manual) (1.0-6.0) % Platelet Evaluation (NORMAL) Large Platelets PT 14.3 H (9.9-11.8) Seconds INR 1.32 H (0.93-1.08) APTT 38.3 H 39.9 H (23.7-30.8) Seconds pCO2 (35-45) mm/Hg pO2 (80-100) mm/Hg HCO3 (21-28) mmol/L ABG pH (7.35-7.45) ABG Total CO2 (22-28) mmol.L ABG O2 Saturation (95-98) % ABG O2 Content (15-23) ML/dl ABG Base Excess (-2.0-3.0) mmol/L ABG Hemoglobin (11.7-17.4) g/dL ABG Carboxyhemoglobin (0.5-1.5) % POC ABG HHb (Measured) (0-5) % ABG Methemoglobin (0.0-3.0) % ABG O2 Capacity (16-24) mL/dl Hgb O2 Saturation (95.0-98.0) % FiO2 % Sodium 144 (132-148) mmol/L Potassium 3.4 L (3.6-5.0) mmol/L Chloride 115 H (98-107) mmol/L Carbon Dioxide 16 L (21-33) mmol/L Anion Gap 16 (10-20) BUN 116 H (7-21) mg/dL Creatinine 5.8 H (0.5-1.4) mg/dL Est GFR ( Amer) 11 Est GFR (Non-Af Amer) 9 POC Glucose (mg/dL) 162 H (65-110) mg/dL Random Glucose 130 H (70-110) mg/dL Calcium 7.6 L (8.4-10.5) mg/dL Phosphorus 6.4 H (2.5-4.5) mg/dL Magnesium 2.1 (1.7-2.2) mg/dL Total Bilirubin 0.6 (0.2-1.3) mg/dL AST 32 (15-59) U/L ALT 44 (7-56) U/L Alkaline Phosphatase 63 (38-133) U/L Troponin I ng/mL Total Protein 4.8 L (5.8-8.3) g/dL Albumin 2.1 L (3.0-4.8) g/dL Globulin 2.7 gm/dL Albumin/Globulin Ratio 0.8 L (1.1-1.8) Parvovirus Source (()) Parvovirus B19 IgG Ab (<0.9) Parvovirus B19 IgM Ab (<0.9) Parvovirus B19 DNA PCR (()) Parvovirus Interpret (()) 1 08/27/16 Range/Units 09:45 WBC (4.5-11.0) 10^3/ul RBC (3.5-6.1) 10^6/uL Hgb (14.0-18.0) gm/dL Hct (42.0-52.0) % MCV (80.0-105.0) fL MCH (25.0-35.0) pg MCHC (31.0-37.0) g/dl RDW (11.5-14.5) % Plt Count (120.0-450.0) 10^3/uL MPV (7.0-11.0) fl Gran % (50.0-68.0) % Lymph % (Auto) (22.0-35.0) % [place] % (Auto) (1.0-6.0) % Eos % (Auto) (1.5-5.0) % Baso % (Auto) (0.0-3.0) % Gran # (1.4-6.5) Lymph # (1.2-3.4) [place] # (0.1-0.6) Eos # (0.0-0.7) Baso # (0.0-2.0) K/mm3 Neutrophils % (Manual) (50.0-70.0) % Band Neutrophils % (0-2) % Lymphocytes % (Manual) (22.0-35.0) % Monocytes % (Manual) (1.0-6.0) % Platelet Evaluation (NORMAL) Large Platelets PT (9.9-11.8) Seconds INR (0.93-1.08) APTT (23.7-30.8) Seconds pCO2 (35-45) mm/Hg pO2 (80-100) mm/Hg HCO3 (21-28) mmol/L ABG pH (7.35-7.45) ABG Total CO2 (22-28) mmol.L ABG O2 Saturation (95-98) % ABG O2 Content (15-23) ML/dl ABG Base Excess (-2.0-3.0) mmol/L ABG Hemoglobin (11.7-17.4) g/dL ABG Carboxyhemoglobin (0.5-1.5) % POC ABG HHb (Measured) (0-5) % ABG Methemoglobin (0.0-3.0) % ABG O2 Capacity (16-24) mL/dl Hgb O2 Saturation (95.0-98.0) % FiO2 % Sodium (132-148) mmol/L Potassium (3.6-5.0) mmol/L Chloride (98-107) mmol/L Carbon Dioxide (21-33) mmol/L Anion Gap (10-20) BUN (7-21) mg/dL Creatinine (0.5-1.4) mg/dL Est GFR ( Amer) Est GFR (Non-Af Amer) POC Glucose (mg/dL) (65-110) mg/dL Random Glucose (70-110) mg/dL Calcium (8.4-10.5) mg/dL Phosphorus (2.5-4.5) mg/dL Magnesium (1.7-2.2) mg/dL Total Bilirubin (0.2-1.3) mg/dL AST (15-59) U/L ALT (7-56) U/L Alkaline Phosphatase (38-133) U/L Troponin I ng/mL Total Protein (5.8-8.3) g/dL Albumin (3.0-4.8) g/dL Globulin gm/dL Albumin/Globulin Ratio (1.1-1.8) Parvovirus Source Serum (()) Parvovirus B19 IgG Ab 1.7 H (<0.9) Parvovirus B19 IgM Ab 0.1 (<0.9) Parvovirus B19 DNA PCR Not detected (()) Parvovirus Interpret (()) 1 Laboratory Results - last 24 hr 08/27/16 08/31/16 08/31/16 09:45 11:28 13:00 WBC RBC Hgb Hct MCV MCH MCHC RDW Plt Count MPV Gran % Lymph % (Auto) [place] % (Auto) Eos % (Auto) Baso % (Auto) Gran # Lymph # [place] # Eos # Baso # Neutrophils % (Manual) Band Neutrophils % Lymphocytes % (Manual) Monocytes % (Manual) Platelet Evaluation Large Platelets PT 14.3 H INR 1.32 H APTT 39.9 H pCO2 pO2 HCO3 ABG pH ABG Total CO2 ABG O2 Saturation ABG O2 Content ABG Base Excess ABG Hemoglobin ABG Carboxyhemoglobin POC ABG HHb (Measured) ABG Methemoglobin ABG O2 Capacity Hgb O2 Saturation FiO2 Sodium 144 Potassium 3.4 L Chloride 115 H Carbon Dioxide 16 L Anion Gap 16 BUN 116 H Creatinine 5.8 H Est GFR ( Amer) 11 Est GFR (Non-Af Amer) 9 POC Glucose (mg/dL) 162 H Random Glucose 130 H Calcium 7.6 L Phosphorus 6.4 H Magnesium 2.1 Total Bilirubin 0.6 AST 32 ALT 44 Alkaline Phosphatase 63 Troponin I Total Protein 4.8 L Albumin 2.1 L Globulin 2.7 Albumin/Globulin Ratio 0.8 L Parvovirus Source Serum Parvovirus B19 IgG Ab 1.7 H Parvovirus B19 IgM Ab 0.1 Parvovirus B19 DNA PCR Not detected Parvovirus Interpret 08/31/16 08/31/16 08/31/16 17:14 17:56 21:36 WBC RBC Hgb Hct MCV MCH MCHC RDW Plt Count MPV Gran % Lymph % (Auto) [place] % (Auto) Eos % (Auto) Baso % (Auto) Gran # Lymph # [place] # Eos # Baso # Neutrophils % (Manual) Band Neutrophils % Lymphocytes % (Manual) Monocytes % (Manual) Platelet Evaluation Large Platelets PT INR APTT 38.3 H pCO2 pO2 HCO3 ABG pH ABG Total CO2 ABG O2 Saturation ABG O2 Content ABG Base Excess ABG Hemoglobin ABG Carboxyhemoglobin POC ABG HHb (Measured) ABG Methemoglobin ABG O2 Capacity Hgb O2 Saturation FiO2 Sodium Potassium Chloride Carbon Dioxide Anion Gap BUN Creatinine Est GFR ( Amer) Est GFR (Non-Af Amer) POC Glucose (mg/dL) 168 H 142 H Random Glucose Calcium Phosphorus Magnesium Total Bilirubin AST ALT Alkaline Phosphatase Troponin I Total Protein Albumin Globulin Albumin/Globulin Ratio Parvovirus Source Parvovirus B19 IgG Ab Parvovirus B19 IgM Ab Parvovirus B19 DNA PCR Parvovirus Interpret 08/31/16 08/31/16 09/01/16 22:26 23:30 05:40 WBC 38.3 H* D 36.2 H* 30.6 H* RBC 2.93 L 2.95 L 2.90 L Hgb 8.9 L 9.0 L 9.0 L Hct 25.0 L 25.2 L 25.1 L MCV 85.3 85.4 86.6 MCH 30.4 30.5 31.0 MCHC 35.6 35.7 35.9 RDW 15.9 H 16.2 H 16.3 H Plt Count 243 259 206 MPV 13.4 H 13.1 H 12.8 H Gran % 94.3 H 92.5 H Lymph % (Auto) 1.8 L 3.0 L [place] % (Auto) 3.7 4.4 Eos % (Auto) 0.1 L 0.1 L Baso % (Auto) 0.1 0.0 Gran # 36.00 H 28.32 H Lymph # 0.8 L 0.9 L [place] # 1.4 H 1.4 H Eos # 0.0 0.0 Baso # 0.02 0.01 Neutrophils % (Manual) 91 H Band Neutrophils % 4 H Lymphocytes % (Manual) 3 L Monocytes % (Manual) 2 Platelet Evaluation Normal Large Platelets Present PT 17.8 H 17.7 H INR 1.65 H 1.64 H APTT > 180.0 H* 46.6 H pCO2 pO2 HCO3 ABG pH ABG Total CO2 ABG O2 Saturation ABG O2 Content ABG Base Excess ABG Hemoglobin ABG Carboxyhemoglobin POC ABG HHb (Measured) ABG Methemoglobin ABG O2 Capacity Hgb O2 Saturation FiO2 Sodium 140 140 Potassium 3.5 L 3.5 L Chloride 109 H 108 H Carbon Dioxide 21 19 L Anion Gap 14 17 BUN 76 H 78 H Creatinine 4.0 H 4.4 H Est GFR ( Amer) 17 16 Est GFR (Non-Af Amer) 14 13 POC Glucose (mg/dL) Random Glucose 116 H 129 H Calcium 7.2 L 7.3 L Phosphorus 4.7 H 5.6 H Magnesium 1.9 1.9 Total Bilirubin 0.5 0.5 AST 26 28 ALT 43 45 Alkaline Phosphatase 56 61 Troponin I 21.20 H* 22.00 H* Total Protein 4.1 L 4.3 L Albumin 1.8 L 1.9 L Globulin 2.3 2.4 Albumin/Globulin Ratio 0.8 L 0.8 L Parvovirus Source Parvovirus B19 IgG Ab Parvovirus B19 IgM Ab Parvovirus B19 DNA PCR Parvovirus Interpret 09/01/16 06:55 WBC RBC Hgb Hct MCV MCH MCHC RDW Plt Count MPV Gran % Lymph % (Auto) [place] % (Auto) Eos % (Auto) Baso % (Auto) Gran # Lymph # [place] # Eos # Baso # Neutrophils % (Manual) Band Neutrophils % Lymphocytes % (Manual) Monocytes % (Manual) Platelet Evaluation Large Platelets PT INR APTT pCO2 25 L pO2 54.0 L HCO3 16.6 L ABG pH 7.43 ABG Total CO2 17.4 L ABG O2 Saturation 88.7 L ABG O2 Content 11.0 L ABG Base Excess -6.6 L ABG Hemoglobin 9.0 L ABG Carboxyhemoglobin 1.7 H POC ABG HHb (Measured) 11.0 H ABG Methemoglobin 0.6 ABG O2 Capacity 12.4 L Hgb O2 Saturation 86.7 L FiO2 40.0 Sodium Potassium Chloride Carbon Dioxide Anion Gap BUN Creatinine Est GFR ( Amer) Est GFR (Non-Af Amer) POC Glucose (mg/dL) Random Glucose Calcium Phosphorus Magnesium Total Bilirubin AST ALT Alkaline Phosphatase Troponin I Total Protein Albumin Globulin Albumin/Globulin Ratio Parvovirus Source Parvovirus B19 IgG Ab Parvovirus B19 IgM Ab Parvovirus B19 DNA PCR Parvovirus Interpret Fingerstick Blood Sugar Results: 174 Critical Care Progress Note - Nutrition Nutrition: Nutrition Category Date Time Status NPO Diet [DIET] Diets 08/31/16 Dinner Ordered Assessment/Plan - Assessment and Plan (Free Text) Plan: Assessments 82 years old male, AAO x 3 at baseline, living alone, with CAD s/p stent on plaix and CKD stage 4, parosximal A-fib not anticoagulated, Hx stroke with L weakness > 1 yr ago, Hx chronic ITP, was found unconscious on the floor on Sunday (08/26) covered with melonic stool with maroon blood clots. Pt had worsened L weakness compared to baseline, slurred speech, and new L nathan- neglect on Good Sunday (08/25). He was admitted to ICU with massive upper GI bleed. NSTEMI is pending decision to cardiac catherterization, questionable Type 1 vs Type 2 RI. Elevated transaminase is now resolved. Pt is now on dialysis (day 2). He is extubated (on 08/30) for agonal breathing to compensate metabolic acidosis and pleural edema/effusion - now on high flow NC. WBC is 22 today, T 99.9, questionable infection, likely reactive to new dialysis. He is on Heparin gtt for A-fib RVR with new splenic infarct. Plan Neuro - Hx R MCA and R [employer] watershed infarct, residual L weakness, L facial droop - Lethargic, AAOx2 only - [ ] Head CT again after pt's bp stablizes. Cardio - on amiodarone gtt for A-fib RVR with new splenic infarct - Discussed with Silk Printer, will observe 1 more day before decision on cardiac catherterization & DEMARCUS. - Hb goal in RI is Hb 10; transfuse 1 u pRBC today (08/31) - EF 35% - If pt tolerates HD well, consider hydralazine/isosorbide for afterload reduction - On ASA, Lasix 40 IV q12, Lopressor 5 IV q6 Pulm - Currently, High flow 50-60% 5L titrate to above POx 90% - Bipap HS and PRN - Goal is to decrease support s/p dialysis - Increased secretion - Reposition, Chest PT, Duoneb PRN, Suction PRN, pulm toiletry PRN - On Brovana, Budesonide GI - OG tube in place (difficult NG placement) - No active GI bleed. 1 black BM per night for the last 2 nights. Hb stable at 9. - NPO. Day 7 of not eating since 08/26 - Protonix IV BID - C.diff toxin and antigen negative - Bedside Endoscopy (08/28) showed no active bleed, barretts and PUD (1 organized healed scab, 2 clean based) no web - Chest, abdomen, pelvis w.o contrast: Proctitis - Abd u/s: Cholelithiasis with gallbladder wall thickening; small perocholecystic fluid. No sono martinez sign. Fatty liver Nephro - Day 2 of dialysis. 1L fluid removed. - Oliguric - Goal: negative fluid balance - Albumin 1.9 Endo - Hx IDDM - ISSS-low. - Goal blood sugar 140-180 - Avoid Kayexaltate in setting of GI bleed Heme - Hx ITP, Prosca on hold - LE ticoplers b/l negative Infectious - WBC 28. Resent C.diff. Resent procalc. - Severe sepsis with CAP vs suspected c. diff - Cefepime, Doxycycline and Flagyl (day 6) - C.diff negative stop Vancomycin PO (day 3) - Procalc 3 - Will repeat blood, urine cx, PCT; 1st set negative - PNA work up: Babesia tests are negative; Mycoplasma IgM negative; urine Legionella Ag is negative - Hemorrhagic stool work up: Pending Babesia, malaria, GBM Ab, parvo B19, ANCA, mau - Negative Hep panel, HIV, - Negative ANCA - s/p yunior sladeer - tylenol PRN Prophlaxis - SCD - Protonix GI bleed dose Prognosis - Poor: Pneumonia severity index 257: Risk V. 30% mortality - [place]: - Full Code S/R/D/w Dr. Hernandez - Date & Time Date: 09/01/16 Time: 09:28 <Joby Hernandez - Last Filed: 09/01/16 15:18> CCU Objective - Vital Signs / Intake & Output Vital Signs (Last 4 hours): Vital Signs Temp Pulse BP 09/01/16 15:08 99.2 F 09/01/16 14:12 92 H 124/51 L 09/01/16 13:14 95 H 09/01/16 13:00 100 F H 09/01/16 11:23 145 H Intake and Output (Last 8hrs): Intake & Output 09/01/16 09/01/16 09/01/16 06:59 14:59 22:59 Intake Total 495 Output Total 200 Balance 295 Weight 170 lb 4.8 oz Intake: IV 495 Right Internal Jugular 495 Output: Urine 200 Urethral (Rodrigez) 200 Other: Voiding Method Indwelling Catheter # Bowel Movements 1 - Medications Active Medications: Active Medications Generic Name Dose Route Start Last Admin Trade Name Freq PRN Reason Stop Dose Admin Acetaminophen 650 mg 08/26/16 16:19 Tylenol 650 Mg Supp RC Q4H PRN Fever >100.4 F Arformoterol Tartrate 15 mcg 08/26/16 20:00 09/01/16 07:10 Brovana IH 15 mcg [id number] DENIZ Administration Artificial Tears 0 ml 09/01/16 12:30 09/01/16 12:08 Artificial Tears OU 1 drop Q6H DENIZ Administration Aspirin 81 mg 08/29/16 10:00 09/01/16 12:08 Ecotrin PO 81 mg DAILY DENIZ Administration Budesonide 0.5 mg 08/26/16 20:00 09/01/16 07:10 Pulmicort Respules IH 0.5 mg [id number] DENIZ Administration Clopidogrel Bisulfate 75 mg 08/29/16 10:00 08/31/16 10:07 Plavix NG Not Given DAILY DENIZ Furosemide 40 mg 08/28/16 22:00 09/01/16 12:09 Lasix IVP Not Given Q12 DENIZ Metronidazole 100 mls @ 100 mls/hr 08/26/16 15:00 09/01/16 13:49 Flagyl IVPB 100 mls/hr Q8 DENIZ Administration Protocol Doxycycline Hyclate 100 mg/ 100 mls @ 100 mls/hr 08/27/16 10:00 09/01/16 12:08 Sodium Chloride IVPB 09/10/16 10:01 100 mls/hr Q12 DENIZ Administration Protocol Cefepime HCl 100 mls @ 100 mls/hr 08/29/16 15:15 08/31/16 17:01 Maxipime 1gm IVPB 09/05/16 15:16 100 mls/hr Q24H DENIZ Administration Protocol Amiodarone HCl/Dextrose 200 mls @ 16.667 mls/hr 08/31/16 16:15 09/01/16 04:20 Nexterone 360 Mg In D5w 200 Ml (Premix) IV 16.667 mls/hr .Q12H DENIZ Administration Protocol 0.5 MG/MIN Heparin Sodium/Sodium Chloride 250 mls @ 13.904 mls/hr 09/01/16 07:19 09/01/16 15:13 Heparin 98728 Units/250ml 1/2 Normal Saline IV 12 units/kg/hr .[id number] PRN Titration ADJUST RATE PER PROTOCOL Protocol 18 UNITS/KG/HR Insulin Human Lispro 0 units 08/26/16 22:00 09/01/16 11:37 Humalog Low SC 1 units ACHS DENIZ Administration Protocol Metoprolol Tartrate 5 mg 08/29/16 14:00 09/01/16 14:12 Lopressor IVP 5 mg Q6H DENIZ Administration Pantoprazole Sodium 40 mg 08/26/16 22:00 09/01/16 12:07 Protonix Inj IVP 40 mg Q12 DENIZ Administration Tetrahydrozoline HCl/Zinc Sulfate 0 ml 08/30/16 21:02 Visine 0.05% Opht Soln OU BID PRN Dry eyes - Patient Studies Lab Studies: Microbiology Studies 08/31/16 17:00 C. difficile Antigen & Toxin A,B (M - Final Stool 08/27/16 09:45 Blood Culture - Final Blood NO GROWTH AFTER 5 DAYS Gram Stain - Final TEST NOT PERFORMED 08/27/16 09:45 Blood Culture - Final Blood NO GROWTH AFTER 5 DAYS Gram Stain - Final TEST NOT PERFORMED 08/29/16 16:30 Gram Stain - Final Sputum Sputum Culture - Final NORMAL ORAL LISA Lab Studies 09/01/16 09/01/16 09/01/16 Range/Units 14:30 14:15 13:30 WBC 37.9 H* D (4.5-11.0) 10^3/ul RBC 3.05 L (3.5-6.1) 10^6/uL Hgb 9.4 L (14.0-18.0) gm/dL Hct 26.3 L (42.0-52.0) % MCV 86.2 (80.0-105.0) fL MCH 30.8 (25.0-35.0) pg MCHC 35.7 (31.0-37.0) g/dl RDW 16.4 H (11.5-14.5) % Plt Count 216 (120.0-450.0) 10^3/uL MPV 13.1 H (7.0-11.0) fl Gran % 93.3 H (50.0-68.0) % Lymph % (Auto) 2.4 L (22.0-35.0) % [place] % (Auto) 4.1 (1.0-6.0) % Eos % (Auto) 0.1 L (1.5-5.0) % Baso % (Auto) 0.1 (0.0-3.0) % Gran # 35.38 H (1.4-6.5) Lymph # 0.9 L (1.2-3.4) [place] # 1.6 H (0.1-0.6) Eos # 0.0 (0.0-0.7) Baso # 0.02 (0.0-2.0) K/mm3 Neutrophils % (Manual) (50.0-70.0) % Band Neutrophils % (0-2) % Lymphocytes % (Manual) (22.0-35.0) % Monocytes % (Manual) (1.0-6.0) % Platelet Evaluation (NORMAL) Large Platelets PT (9.9-11.8) Seconds INR (0.93-1.08) APTT 121.4 H* (23.7-30.8) Seconds pCO2 (35-45) mm/Hg pO2 (80-100) mm/Hg HCO3 (21-28) mmol/L ABG pH (7.35-7.45) ABG Total CO2 (22-28) mmol.L ABG O2 Saturation (95-98) % ABG O2 Content (15-23) ML/dl ABG Base Excess (-2.0-3.0) mmol/L ABG Hemoglobin (11.7-17.4) g/dL ABG Carboxyhemoglobin (0.5-1.5) % POC ABG HHb (Measured) (0-5) % ABG Methemoglobin (0.0-3.0) % ABG O2 Capacity (16-24) mL/dl Hgb O2 Saturation (95.0-98.0) % FiO2 % Sodium 140 (132-148) mmol/L Potassium 3.7 (3.6-5.0) mmol/L Chloride 105 (98-107) mmol/L Carbon Dioxide 24 (21-33) mmol/L Anion Gap 15 (10-20) BUN 48 H (7-21) mg/dL Creatinine 2.9 H (0.5-1.4) mg/dL Est GFR ( Amer) 25 Est GFR (Non-Af Amer) 21 POC Glucose (mg/dL) (65-110) mg/dL Random Glucose 125 H (70-110) mg/dL Calcium 7.2 L (8.4-10.5) mg/dL Phosphorus 4.4 (2.5-4.5) mg/dL Magnesium 1.9 (1.7-2.2) mg/dL Total Bilirubin 0.6 (0.2-1.3) mg/dL AST 29 (15-59) U/L ALT 39 (7-56) U/L Alkaline Phosphatase 66 (38-133) U/L Troponin I ng/mL Total Protein 4.4 L (5.8-8.3) g/dL Albumin 1.9 L (3.0-4.8) g/dL Globulin 2.5 gm/dL Albumin/Globulin Ratio 0.8 L (1.1-1.8) Urine Color Yellow (YELLOW) Urine Appearance Turbid (CLEAR) Urine pH 6.0 (4.7-8.0) Ur Specific [place] 1.025 (1.005-1.035) Urine Protein 100 H (<30 mg/dL) mg/dL Urine Glucose (UA) Negative (NEGATIVE) mg/dL Urine Ketones Trace H (NEGATIVE) mg/dL Urine Blood Large H (NEGATIVE) Urine Nitrate Negative (NEGATIVE) Urine Bilirubin Negative (NEGATIVE) Urine Urobilinogen 0.2 (<1 E.U./dL) E.U./dL Ur Leukocyte Esterase Small H (NEGATIVE) La/uL Urine RBC 10 - 15 (0-2) /hpf Urine WBC 2 - 5 (0-6) /hpf Urine Bacteria Few (NEG) Coarse Granular Casts Small H (0-2) /hpf Malaria/Babesia Smear M.pneumoniae IgG Titer Blood Type Antibody Screen Crossmatch BBK History Checked 09/01/16 09/01/16 09/01/16 Range/Units 11:06 10:50 07:27 WBC (4.5-11.0) 10^3/ul RBC (3.5-6.1) 10^6/uL Hgb (14.0-18.0) gm/dL Hct (42.0-52.0) % MCV (80.0-105.0) fL MCH (25.0-35.0) pg MCHC (31.0-37.0) g/dl RDW (11.5-14.5) % Plt Count (120.0-450.0) 10^3/uL MPV (7.0-11.0) fl Gran % (50.0-68.0) % Lymph % (Auto) (22.0-35.0) % [place] % (Auto) (1.0-6.0) % Eos % (Auto) (1.5-5.0) % Baso % (Auto) (0.0-3.0) % Gran # (1.4-6.5) Lymph # (1.2-3.4) [place] # (0.1-0.6) Eos # (0.0-0.7) Baso # (0.0-2.0) K/mm3 Neutrophils % (Manual) (50.0-70.0) % Band Neutrophils % (0-2) % Lymphocytes % (Manual) (22.0-35.0) % Monocytes % (Manual) (1.0-6.0) % Platelet Evaluation (NORMAL) Large Platelets PT (9.9-11.8) Seconds INR (0.93-1.08) APTT (23.7-30.8) Seconds pCO2 (35-45) mm/Hg pO2 (80-100) mm/Hg HCO3 (21-28) mmol/L ABG pH (7.35-7.45) ABG Total CO2 (22-28) mmol.L ABG O2 Saturation (95-98) % ABG O2 Content (15-23) ML/dl ABG Base Excess (-2.0-3.0) mmol/L ABG Hemoglobin (11.7-17.4) g/dL ABG Carboxyhemoglobin (0.5-1.5) % POC ABG HHb (Measured) (0-5) % ABG Methemoglobin (0.0-3.0) % ABG O2 Capacity (16-24) mL/dl Hgb O2 Saturation (95.0-98.0) % FiO2 % Sodium (132-148) mmol/L Potassium (3.6-5.0) mmol/L Chloride (98-107) mmol/L Carbon Dioxide (21-33) mmol/L Anion Gap (10-20) BUN (7-21) mg/dL Creatinine (0.5-1.4) mg/dL Est GFR ( Amer) Est GFR (Non-Af Amer) POC Glucose (mg/dL) 154 H 174 H (65-110) mg/dL Random Glucose (70-110) mg/dL Calcium (8.4-10.5) mg/dL Phosphorus (2.5-4.5) mg/dL Magnesium (1.7-2.2) mg/dL Total Bilirubin (0.2-1.3) mg/dL AST (15-59) U/L ALT (7-56) U/L Alkaline Phosphatase (38-133) U/L Troponin I ng/mL Total Protein (5.8-8.3) g/dL Albumin (3.0-4.8) g/dL Globulin gm/dL Albumin/Globulin Ratio (1.1-1.8) Urine Color (YELLOW) Urine Appearance (CLEAR) Urine pH (4.7-8.0) Ur Specific [place] (1.005-1.035) Urine Protein (<30 mg/dL) mg/dL Urine Glucose (UA) (NEGATIVE) mg/dL Urine Ketones (NEGATIVE) mg/dL Urine Blood (NEGATIVE) Urine Nitrate (NEGATIVE) Urine Bilirubin (NEGATIVE) Urine Urobilinogen (<1 E.U./dL) E.U./dL Ur Leukocyte Esterase (NEGATIVE) La/uL Urine RBC (0-2) /hpf Urine WBC (0-6) /hpf Urine Bacteria (NEG) Coarse Granular Casts (0-2) /hpf Malaria/Babesia Smear M.pneumoniae IgG Titer Blood Type O POSITIVE Antibody Screen Negative Crossmatch See Detail BBK History Checked Patient has bt 09/01/16 09/01/16 08/31/16 Range/Units 06:55 05:40 23:30 WBC 30.6 H* 36.2 H* (4.5-11.0) 10^3/ul RBC 2.90 L 2.95 L (3.5-6.1) 10^6/uL Hgb 9.0 L 9.0 L (14.0-18.0) gm/dL Hct 25.1 L 25.2 L (42.0-52.0) % MCV 86.6 85.4 (80.0-105.0) fL MCH 31.0 30.5 (25.0-35.0) pg MCHC 35.9 35.7 (31.0-37.0) g/dl RDW 16.3 H 16.2 H (11.5-14.5) % Plt Count 206 259 (120.0-450.0) 10^3/uL MPV 12.8 H 13.1 H (7.0-11.0) fl Gran % 92.5 H (50.0-68.0) % Lymph % (Auto) 3.0 L (22.0-35.0) % [place] % (Auto) 4.4 (1.0-6.0) % Eos % (Auto) 0.1 L (1.5-5.0) % Baso % (Auto) 0.0 (0.0-3.0) % Gran # 28.32 H (1.4-6.5) Lymph # 0.9 L (1.2-3.4) [place] # 1.4 H (0.1-0.6) Eos # 0.0 (0.0-0.7) Baso # 0.01 (0.0-2.0) K/mm3 Neutrophils % (Manual) 91 H (50.0-70.0) % Band Neutrophils % 4 H (0-2) % Lymphocytes % (Manual) 3 L (22.0-35.0) % Monocytes % (Manual) 2 (1.0-6.0) % Platelet Evaluation Normal (NORMAL) Large Platelets Present PT 17.7 H (9.9-11.8) Seconds INR 1.64 H (0.93-1.08) APTT 46.6 H (23.7-30.8) Seconds pCO2 25 L (35-45) mm/Hg pO2 54.0 L (80-100) mm/Hg HCO3 16.6 L (21-28) mmol/L ABG pH 7.43 (7.35-7.45) ABG Total CO2 17.4 L (22-28) mmol.L ABG O2 Saturation 88.7 L (95-98) % ABG O2 Content 11.0 L (15-23) ML/dl ABG Base Excess -6.6 L (-2.0-3.0) mmol/L ABG Hemoglobin 9.0 L (11.7-17.4) g/dL ABG Carboxyhemoglobin 1.7 H (0.5-1.5) % POC ABG HHb (Measured) 11.0 H (0-5) % ABG Methemoglobin 0.6 (0.0-3.0) % ABG O2 Capacity 12.4 L (16-24) mL/dl Hgb O2 Saturation 86.7 L (95.0-98.0) % FiO2 40.0 % Sodium 140 (132-148) mmol/L Potassium 3.5 L (3.6-5.0) mmol/L Chloride 108 H (98-107) mmol/L Carbon Dioxide 19 L (21-33) mmol/L Anion Gap 17 (10-20) BUN 78 H (7-21) mg/dL Creatinine 4.4 H (0.5-1.4) mg/dL Est GFR ( Amer) 16 Est GFR (Non-Af Amer) 13 POC Glucose (mg/dL) (65-110) mg/dL Random Glucose 129 H (70-110) mg/dL Calcium 7.3 L (8.4-10.5) mg/dL Phosphorus 5.6 H (2.5-4.5) mg/dL Magnesium 1.9 (1.7-2.2) mg/dL Total Bilirubin 0.5 (0.2-1.3) mg/dL AST 28 (15-59) U/L ALT 45 (7-56) U/L Alkaline Phosphatase 61 (38-133) U/L Troponin I 22.00 H* ng/mL Total Protein 4.3 L (5.8-8.3) g/dL Albumin 1.9 L (3.0-4.8) g/dL Globulin 2.4 gm/dL Albumin/Globulin Ratio 0.8 L (1.1-1.8) Urine Color (YELLOW) Urine Appearance (CLEAR) Urine pH (4.7-8.0) Ur Specific [place] (1.005-1.035) Urine Protein (<30 mg/dL) mg/dL Urine Glucose (UA) (NEGATIVE) mg/dL Urine Ketones (NEGATIVE) mg/dL Urine Blood (NEGATIVE) Urine Nitrate (NEGATIVE) Urine Bilirubin (NEGATIVE) Urine Urobilinogen (<1 E.U./dL) E.U./dL Ur Leukocyte Esterase (NEGATIVE) La/uL Urine RBC (0-2) /hpf Urine WBC (0-6) /hpf Urine Bacteria (NEG) Coarse Granular Casts (0-2) /hpf Malaria/Babesia Smear M.pneumoniae IgG Titer Blood Type Antibody Screen Crossmatch BBK History Checked 08/31/16 08/31/16 08/31/16 Range/Units 22:26 21:36 17:56 WBC 38.3 H* D (4.5-11.0) 10^3/ul RBC 2.93 L (3.5-6.1) 10^6/uL Hgb 8.9 L (14.0-18.0) gm/dL Hct 25.0 L (42.0-52.0) % MCV 85.3 (80.0-105.0) fL MCH 30.4 (25.0-35.0) pg MCHC 35.6 (31.0-37.0) g/dl RDW 15.9 H (11.5-14.5) % Plt Count 243 (120.0-450.0) 10^3/uL MPV 13.4 H (7.0-11.0) fl Gran % 94.3 H (50.0-68.0) % Lymph % (Auto) 1.8 L (22.0-35.0) % [place] % (Auto) 3.7 (1.0-6.0) % Eos % (Auto) 0.1 L (1.5-5.0) % Baso % (Auto) 0.1 (0.0-3.0) % Gran # 36.00 H (1.4-6.5) Lymph # 0.8 L (1.2-3.4) [place] # 1.4 H (0.1-0.6) Eos # 0.0 (0.0-0.7) Baso # 0.02 (0.0-2.0) K/mm3 Neutrophils % (Manual) (50.0-70.0) % Band Neutrophils % (0-2) % Lymphocytes % (Manual) (22.0-35.0) % Monocytes % (Manual) (1.0-6.0) % Platelet Evaluation (NORMAL) Large Platelets PT 17.8 H (9.9-11.8) Seconds INR 1.65 H (0.93-1.08) APTT > 180.0 H* (23.7-30.8) Seconds pCO2 (35-45) mm/Hg pO2 (80-100) mm/Hg HCO3 (21-28) mmol/L ABG pH (7.35-7.45) ABG Total CO2 (22-28) mmol.L ABG O2 Saturation (95-98) % ABG O2 Content (15-23) ML/dl ABG Base Excess (-2.0-3.0) mmol/L ABG Hemoglobin (11.7-17.4) g/dL ABG Carboxyhemoglobin (0.5-1.5) % POC ABG HHb (Measured) (0-5) % ABG Methemoglobin (0.0-3.0) % ABG O2 Capacity (16-24) mL/dl Hgb O2 Saturation (95.0-98.0) % FiO2 % Sodium 140 (132-148) mmol/L Potassium 3.5 L (3.6-5.0) mmol/L Chloride 109 H (98-107) mmol/L Carbon Dioxide 21 (21-33) mmol/L Anion Gap 14 (10-20) BUN 76 H (7-21) mg/dL Creatinine 4.0 H (0.5-1.4) mg/dL Est GFR ( Amer) 17 Est GFR (Non-Af Amer) 14 POC Glucose (mg/dL) 142 H 168 H (65-110) mg/dL Random Glucose 116 H (70-110) mg/dL Calcium 7.2 L (8.4-10.5) mg/dL Phosphorus 4.7 H (2.5-4.5) mg/dL Magnesium 1.9 (1.7-2.2) mg/dL Total Bilirubin 0.5 (0.2-1.3) mg/dL AST 26 (15-59) U/L ALT 43 (7-56) U/L Alkaline Phosphatase 56 (38-133) U/L Troponin I 21.20 H* ng/mL Total Protein 4.1 L (5.8-8.3) g/dL Albumin 1.8 L (3.0-4.8) g/dL Globulin 2.3 gm/dL Albumin/Globulin Ratio 0.8 L (1.1-1.8) Urine Color (YELLOW) Urine Appearance (CLEAR) Urine pH (4.7-8.0) Ur Specific [place] (1.005-1.035) Urine Protein (<30 mg/dL) mg/dL Urine Glucose (UA) (NEGATIVE) mg/dL Urine Ketones (NEGATIVE) mg/dL Urine Blood (NEGATIVE) Urine Nitrate (NEGATIVE) Urine Bilirubin (NEGATIVE) Urine Urobilinogen (<1 E.U./dL) E.U./dL Ur Leukocyte Esterase (NEGATIVE) La/uL Urine RBC (0-2) /hpf Urine WBC (0-6) /hpf Urine Bacteria (NEG) Coarse Granular Casts (0-2) /hpf Malaria/Babesia Smear M.pneumoniae IgG Titer Blood Type Antibody Screen Crossmatch BBK History Checked 08/31/16 08/31/16 08/27/16 Range/Units 17:14 11:28 10:31 WBC (4.5-11.0) 10^3/ul RBC (3.5-6.1) 10^6/uL Hgb (14.0-18.0) gm/dL Hct (42.0-52.0) % MCV (80.0-105.0) fL MCH (25.0-35.0) pg MCHC (31.0-37.0) g/dl RDW (11.5-14.5) % Plt Count (120.0-450.0) 10^3/uL MPV (7.0-11.0) fl Gran % (50.0-68.0) % Lymph % (Auto) (22.0-35.0) % [place] % (Auto) (1.0-6.0) % Eos % (Auto) (1.5-5.0) % Baso % (Auto) (0.0-3.0) % Gran # (1.4-6.5) Lymph # (1.2-3.4) [place] # (0.1-0.6) Eos # (0.0-0.7) Baso # (0.0-2.0) K/mm3 Neutrophils % (Manual) (50.0-70.0) % Band Neutrophils % (0-2) % Lymphocytes % (Manual) (22.0-35.0) % Monocytes % (Manual) (1.0-6.0) % Platelet Evaluation (NORMAL) Large Platelets PT (9.9-11.8) Seconds INR (0.93-1.08) APTT 38.3 H (23.7-30.8) Seconds pCO2 (35-45) mm/Hg pO2 (80-100) mm/Hg HCO3 (21-28) mmol/L ABG pH (7.35-7.45) ABG Total CO2 (22-28) mmol.L ABG O2 Saturation (95-98) % ABG O2 Content (15-23) ML/dl ABG Base Excess (-2.0-3.0) mmol/L ABG Hemoglobin (11.7-17.4) g/dL ABG Carboxyhemoglobin (0.5-1.5) % POC ABG HHb (Measured) (0-5) % ABG Methemoglobin (0.0-3.0) % ABG O2 Capacity (16-24) mL/dl Hgb O2 Saturation (95.0-98.0) % FiO2 % Sodium (132-148) mmol/L Potassium (3.6-5.0) mmol/L Chloride (98-107) mmol/L Carbon Dioxide (21-33) mmol/L Anion Gap (10-20) BUN (7-21) mg/dL Creatinine (0.5-1.4) mg/dL Est GFR ( Amer) Est GFR (Non-Af Amer) POC Glucose (mg/dL) 162 H (65-110) mg/dL Random Glucose (70-110) mg/dL Calcium (8.4-10.5) mg/dL Phosphorus (2.5-4.5) mg/dL Magnesium (1.7-2.2) mg/dL Total Bilirubin (0.2-1.3) mg/dL AST (15-59) U/L ALT (7-56) U/L Alkaline Phosphatase (38-133) U/L Troponin I ng/mL Total Protein (5.8-8.3) g/dL Albumin (3.0-4.8) g/dL Globulin gm/dL Albumin/Globulin Ratio (1.1-1.8) Urine Color (YELLOW) Urine Appearance (CLEAR) Urine pH (4.7-8.0) Ur Specific [place] (1.005-1.035) Urine Protein (<30 mg/dL) mg/dL Urine Glucose (UA) (NEGATIVE) mg/dL Urine Ketones (NEGATIVE) mg/dL Urine Blood (NEGATIVE) Urine Nitrate (NEGATIVE) Urine Bilirubin (NEGATIVE) Urine Urobilinogen (<1 E.U./dL) E.U./dL Ur Leukocyte Esterase (NEGATIVE) La/uL Urine RBC (0-2) /hpf Urine WBC (0-6) /hpf Urine Bacteria (NEG) Coarse Granular Casts (0-2) /hpf Malaria/Babesia Smear M.pneumoniae IgG Titer Cancelled Blood Type Antibody Screen Crossmatch BBK History Checked 08/27/16 Range/Units 09:45 WBC (4.5-11.0) 10^3/ul RBC (3.5-6.1) 10^6/uL Hgb (14.0-18.0) gm/dL Hct (42.0-52.0) % MCV (80.0-105.0) fL MCH (25.0-35.0) pg MCHC (31.0-37.0) g/dl RDW (11.5-14.5) % Plt Count (120.0-450.0) 10^3/uL MPV (7.0-11.0) fl Gran % (50.0-68.0) % Lymph % (Auto) (22.0-35.0) % [place] % (Auto) (1.0-6.0) % Eos % (Auto) (1.5-5.0) % Baso % (Auto) (0.0-3.0) % Gran # (1.4-6.5) Lymph # (1.2-3.4) [place] # (0.1-0.6) Eos # (0.0-0.7) Baso # (0.0-2.0) K/mm3 Neutrophils % (Manual) (50.0-70.0) % Band Neutrophils % (0-2) % Lymphocytes % (Manual) (22.0-35.0) % Monocytes % (Manual) (1.0-6.0) % Platelet Evaluation (NORMAL) Large Platelets PT (9.9-11.8) Seconds INR (0.93-1.08) APTT (23.7-30.8) Seconds pCO2 (35-45) mm/Hg pO2 (80-100) mm/Hg HCO3 (21-28) mmol/L ABG pH (7.35-7.45) ABG Total CO2 (22-28) mmol.L ABG O2 Saturation (95-98) % ABG O2 Content (15-23) ML/dl ABG Base Excess (-2.0-3.0) mmol/L ABG Hemoglobin (11.7-17.4) g/dL ABG Carboxyhemoglobin (0.5-1.5) % POC ABG HHb (Measured) (0-5) % ABG Methemoglobin (0.0-3.0) % ABG O2 Capacity (16-24) mL/dl Hgb O2 Saturation (95.0-98.0) % FiO2 % Sodium (132-148) mmol/L Potassium (3.6-5.0) mmol/L Chloride (98-107) mmol/L Carbon Dioxide (21-33) mmol/L Anion Gap (10-20) BUN (7-21) mg/dL Creatinine (0.5-1.4) mg/dL Est GFR ( Amer) Est GFR (Non-Af Amer) POC Glucose (mg/dL) (65-110) mg/dL Random Glucose (70-110) mg/dL Calcium (8.4-10.5) mg/dL Phosphorus (2.5-4.5) mg/dL Magnesium (1.7-2.2) mg/dL Total Bilirubin (0.2-1.3) mg/dL AST (15-59) U/L ALT (7-56) U/L Alkaline Phosphatase (38-133) U/L Troponin I ng/mL Total Protein (5.8-8.3) g/dL Albumin (3.0-4.8) g/dL Globulin gm/dL Albumin/Globulin Ratio (1.1-1.8) Urine Color (YELLOW) Urine Appearance (CLEAR) Urine pH (4.7-8.0) Ur Specific [place] (1.005-1.035) Urine Protein (<30 mg/dL) mg/dL Urine Glucose (UA) (NEGATIVE) mg/dL Urine Ketones (NEGATIVE) mg/dL Urine Blood (NEGATIVE) Urine Nitrate (NEGATIVE) Urine Bilirubin (NEGATIVE) Urine Urobilinogen (<1 E.U./dL) E.U./dL Ur Leukocyte Esterase (NEGATIVE) La/uL Urine RBC (0-2) /hpf Urine WBC (0-6) /hpf Urine Bacteria (NEG) Coarse Granular Casts (0-2) /hpf Malaria/Babesia Smear Negative M.pneumoniae IgG Titer Blood Type Antibody Screen Crossmatch BBK History Checked Laboratory Results - last 24 hr 08/27/16 08/27/16 08/31/16 09:45 10:31 11:28 WBC RBC Hgb Hct MCV MCH MCHC RDW Plt Count MPV Gran % Lymph % (Auto) [place] % (Auto) Eos % (Auto) Baso % (Auto) Gran # Lymph # [place] # Eos # Baso # Neutrophils % (Manual) Band Neutrophils % Lymphocytes % (Manual) Monocytes % (Manual) Platelet Evaluation Large Platelets PT INR APTT pCO2 pO2 HCO3 ABG pH ABG Total CO2 ABG O2 Saturation ABG O2 Content ABG Base Excess ABG Hemoglobin ABG Carboxyhemoglobin POC ABG HHb (Measured) ABG Methemoglobin ABG O2 Capacity Hgb O2 Saturation FiO2 Sodium Potassium Chloride Carbon Dioxide Anion Gap BUN Creatinine Est GFR ( Amer) Est GFR (Non-Af Amer) POC Glucose (mg/dL) 162 H Random Glucose Calcium Phosphorus Magnesium Total Bilirubin AST ALT Alkaline Phosphatase Troponin I Total Protein Albumin Globulin Albumin/Globulin Ratio Urine Color Urine Appearance Urine pH Ur Specific [place] Urine Protein Urine Glucose (UA) Urine Ketones Urine Blood Urine Nitrate Urine Bilirubin Urine Urobilinogen Ur Leukocyte Esterase Urine RBC Urine WBC Urine Bacteria Coarse Granular Casts Malaria/Babesia Smear Negative M.pneumoniae IgG Titer Cancelled Blood Type Antibody Screen Crossmatch BBK History Checked 08/31/16 08/31/16 08/31/16 17:14 17:56 21:36 WBC RBC Hgb Hct MCV MCH MCHC RDW Plt Count MPV Gran % Lymph % (Auto) [place] % (Auto) Eos % (Auto) Baso % (Auto) Gran # Lymph # [place] # Eos # Baso # Neutrophils % (Manual) Band Neutrophils % Lymphocytes % (Manual) Monocytes % (Manual) Platelet Evaluation Large Platelets PT INR APTT 38.3 H pCO2 pO2 HCO3 ABG pH ABG Total CO2 ABG O2 Saturation ABG O2 Content ABG Base Excess ABG Hemoglobin ABG Carboxyhemoglobin POC ABG HHb (Measured) ABG Methemoglobin ABG O2 Capacity Hgb O2 Saturation FiO2 Sodium Potassium Chloride Carbon Dioxide Anion Gap BUN Creatinine Est GFR ( Amer) Est GFR (Non-Af Amer) POC Glucose (mg/dL) 168 H 142 H Random Glucose Calcium Phosphorus Magnesium Total Bilirubin AST ALT Alkaline Phosphatase Troponin I Total Protein Albumin Globulin Albumin/Globulin Ratio Urine Color Urine Appearance Urine pH Ur Specific [place] Urine Protein Urine Glucose (UA) Urine Ketones Urine Blood Urine Nitrate Urine Bilirubin Urine Urobilinogen Ur Leukocyte Esterase Urine RBC Urine WBC Urine Bacteria Coarse Granular Casts Malaria/Babesia Smear M.pneumoniae IgG Titer Blood Type Antibody Screen Crossmatch BBK History Checked 08/31/16 08/31/16 09/01/16 22:26 23:30 05:40 WBC 38.3 H* D 36.2 H* 30.6 H* RBC 2.93 L 2.95 L 2.90 L Hgb 8.9 L 9.0 L 9.0 L Hct 25.0 L 25.2 L 25.1 L MCV 85.3 85.4 86.6 MCH 30.4 30.5 31.0 MCHC 35.6 35.7 35.9 RDW 15.9 H 16.2 H 16.3 H Plt Count 243 259 206 MPV 13.4 H 13.1 H 12.8 H Gran % 94.3 H 92.5 H Lymph % (Auto) 1.8 L 3.0 L [place] % (Auto) 3.7 4.4 Eos % (Auto) 0.1 L 0.1 L Baso % (Auto) 0.1 0.0 Gran # 36.00 H 28.32 H Lymph # 0.8 L 0.9 L [place] # 1.4 H 1.4 H Eos # 0.0 0.0 Baso # 0.02 0.01 Neutrophils % (Manual) 91 H Band Neutrophils % 4 H Lymphocytes % (Manual) 3 L Monocytes % (Manual) 2 Platelet Evaluation Normal Large Platelets Present PT 17.8 H 17.7 H INR 1.65 H 1.64 H APTT > 180.0 H* 46.6 H pCO2 pO2 HCO3 ABG pH ABG Total CO2 ABG O2 Saturation ABG O2 Content ABG Base Excess ABG Hemoglobin ABG Carboxyhemoglobin POC ABG HHb (Measured) ABG Methemoglobin ABG O2 Capacity Hgb O2 Saturation FiO2 Sodium 140 140 Potassium 3.5 L 3.5 L Chloride 109 H 108 H Carbon Dioxide 21 19 L Anion Gap 14 17 BUN 76 H 78 H Creatinine 4.0 H 4.4 H Est GFR ( Amer) 17 16 Est GFR (Non-Af Amer) 14 13 POC Glucose (mg/dL) Random Glucose 116 H 129 H Calcium 7.2 L 7.3 L Phosphorus 4.7 H 5.6 H Magnesium 1.9 1.9 Total Bilirubin 0.5 0.5 AST 26 28 ALT 43 45 Alkaline Phosphatase 56 61 Troponin I 21.20 H* 22.00 H* Total Protein 4.1 L 4.3 L Albumin 1.8 L 1.9 L Globulin 2.3 2.4 Albumin/Globulin Ratio 0.8 L 0.8 L Urine Color Urine Appearance Urine pH Ur Specific [place] Urine Protein Urine Glucose (UA) Urine Ketones Urine Blood Urine Nitrate Urine Bilirubin Urine Urobilinogen Ur Leukocyte Esterase Urine RBC Urine WBC Urine Bacteria Coarse Granular Casts Malaria/Babesia Smear M.pneumoniae IgG Titer Blood Type Antibody Screen Crossmatch BBK History Checked 09/01/16 09/01/16 09/01/16 06:55 07:27 10:50 WBC RBC Hgb Hct MCV MCH MCHC RDW Plt Count MPV Gran % Lymph % (Auto) [place] % (Auto) Eos % (Auto) Baso % (Auto) Gran # Lymph # [place] # Eos # Baso # Neutrophils % (Manual) Band Neutrophils % Lymphocytes % (Manual) Monocytes % (Manual) Platelet Evaluation Large Platelets PT INR APTT pCO2 25 L pO2 54.0 L HCO3 16.6 L ABG pH 7.43 ABG Total CO2 17.4 L ABG O2 Saturation 88.7 L ABG O2 Content 11.0 L ABG Base Excess -6.6 L ABG Hemoglobin 9.0 L ABG Carboxyhemoglobin 1.7 H POC ABG HHb (Measured) 11.0 H ABG Methemoglobin 0.6 ABG O2 Capacity 12.4 L Hgb O2 Saturation 86.7 L FiO2 40.0 Sodium Potassium Chloride Carbon Dioxide Anion Gap BUN Creatinine Est GFR ( Amer) Est GFR (Non-Af Amer) POC Glucose (mg/dL) 174 H Random Glucose Calcium Phosphorus Magnesium Total Bilirubin AST ALT Alkaline Phosphatase Troponin I Total Protein Albumin Globulin Albumin/Globulin Ratio Urine Color Urine Appearance Urine pH Ur Specific [place] Urine Protein Urine Glucose (UA) Urine Ketones Urine Blood Urine Nitrate Urine Bilirubin Urine Urobilinogen Ur Leukocyte Esterase Urine RBC Urine WBC Urine Bacteria Coarse Granular Casts Malaria/Babesia Smear M.pneumoniae IgG Titer Blood Type O POSITIVE Antibody Screen Negative Crossmatch See Detail BBK History Checked Patient has bt 09/01/16 09/01/16 09/01/16 11:06 13:30 14:15 WBC RBC Hgb Hct MCV MCH MCHC RDW Plt Count MPV Gran % Lymph % (Auto) [place] % (Auto) Eos % (Auto) Baso % (Auto) Gran # Lymph # [place] # Eos # Baso # Neutrophils % (Manual) Band Neutrophils % Lymphocytes % (Manual) Monocytes % (Manual) Platelet Evaluation Large Platelets PT INR APTT 121.4 H* pCO2 pO2 HCO3 ABG pH ABG Total CO2 ABG O2 Saturation ABG O2 Content ABG Base Excess ABG Hemoglobin ABG Carboxyhemoglobin POC ABG HHb (Measured) ABG Methemoglobin ABG O2 Capacity Hgb O2 Saturation FiO2 Sodium Potassium Chloride Carbon Dioxide Anion Gap BUN Creatinine Est GFR ( Amer) Est GFR (Non-Af Amer) POC Glucose (mg/dL) 154 H Random Glucose Calcium Phosphorus Magnesium Total Bilirubin AST ALT Alkaline Phosphatase Troponin I Total Protein Albumin Globulin Albumin/Globulin Ratio Urine Color Yellow Urine Appearance Turbid Urine pH 6.0 Ur Specific [place] 1.025 Urine Protein 100 H Urine Glucose (UA) Negative Urine Ketones Trace H Urine Blood Large H Urine Nitrate Negative Urine Bilirubin Negative Urine Urobilinogen 0.2 Ur Leukocyte Esterase Small H Urine RBC 10 - 15 Urine WBC 2 - 5 Urine Bacteria Few Coarse Granular Casts Small H Malaria/Babesia Smear M.pneumoniae IgG Titer Blood Type Antibody Screen Crossmatch BBK History Checked 09/01/16 14:30 WBC 37.9 H* D RBC 3.05 L Hgb 9.4 L Hct 26.3 L MCV 86.2 MCH 30.8 MCHC 35.7 RDW 16.4 H Plt Count 216 MPV 13.1 H Gran % 93.3 H Lymph % (Auto) 2.4 L [place] % (Auto) 4.1 Eos % (Auto) 0.1 L Baso % (Auto) 0.1 Gran # 35.38 H Lymph # 0.9 L [place] # 1.6 H Eos # 0.0 Baso # 0.02 Neutrophils % (Manual) Band Neutrophils % Lymphocytes % (Manual) Monocytes % (Manual) Platelet Evaluation Large Platelets PT INR APTT pCO2 pO2 HCO3 ABG pH ABG Total CO2 ABG O2 Saturation ABG O2 Content ABG Base Excess ABG Hemoglobin ABG Carboxyhemoglobin POC ABG HHb (Measured) ABG Methemoglobin ABG O2 Capacity Hgb O2 Saturation FiO2 Sodium 140 Potassium 3.7 Chloride 105 Carbon Dioxide 24 Anion Gap 15 BUN 48 H Creatinine 2.9 H Est GFR ( Amer) 25 Est GFR (Non-Af Amer) 21 POC Glucose (mg/dL) Random Glucose 125 H Calcium 7.2 L Phosphorus 4.4 Magnesium 1.9 Total Bilirubin 0.6 AST 29 ALT 39 Alkaline Phosphatase 66 Troponin I Total Protein 4.4 L Albumin 1.9 L Globulin 2.5 Albumin/Globulin Ratio 0.8 L Urine Color Urine Appearance Urine pH Ur Specific [place] Urine Protein Urine Glucose (UA) Urine Ketones Urine Blood Urine Nitrate Urine Bilirubin Urine Urobilinogen Ur Leukocyte Esterase Urine RBC Urine WBC Urine Bacteria Coarse Granular Casts Malaria/Babesia Smear M.pneumoniae IgG Titer Blood Type Antibody Screen Crossmatch BBK History Checked Critical Care Progress Note - Nutrition Nutrition: Nutrition Category Date Time Status NPO Diet [DIET] Diets 08/31/16 Dinner Ordered Addendum Addendum: 09/01/16 15:18 patient was seen and examined with Dr. Luis. Please see Dr. Hernandez's note
--- NOTE | 2016-09-01 09:33 | PN ---
DATE: 09/01/2016 The patient seen and examined at bedside. He is comfortable. He is not in respiratory or otherwise distress. He appears to be able to protect his airways. However, his mental status fluctuates. He is on 50% of FiO2. His oxygen saturation is 93%-94%. His blood pressure 112/50. His heart rate is 80. He is on heparin drip and amiodarone drip. PHYSICAL EXAMINATION: HEAD AND NECK: Atraumatic. LUNGS: Few crackles bibasilarly. HEART: Regular rate and rhythm. S1, S2 distant. ABDOMEN: Soft, nontender, nondistended. MUSCULOSKELETAL: Trace bilateral pedal and ankle edema. NEUROLOGIC: The patient was observed slightly moving upper and lower extremities. SKIN: Moist. PSYCHIATRIC: The patient following commands. LABORATORIES: WBC 30.6, down from 36.2, hemoglobin 9, platelet count 206. Sodium 140, potassium 3.5, chloride 108, carbon dioxide 19, BUN 78, creatinine 4.4 (the patient will be dialyzed today), glucose 129. Immunology is negative for P-ANCA, myeloperoxidase antibodies, GBM antibodies, ANCA negative. MEDICATIONS: Amiodarone drip, Brovana, doxycycline, aspirin, Flagyl, heparin drip, regular insulin sliding scale low protocol, Lasix 40 mg IV q. 12, metoprolol, cefepime, Plavix, Protonix, budesonide, Tylenol p.r.n. CAT scan of the abdomen and pelvis revealed changes consistent with and suspicious for splenic infarct. ASSESSMENT AND PLAN: This is an 81-year-old gentleman who presented with non- ST elevated myocardial infarction in the setting of paroxysmal atrial fibrillation and potential/possible thromboembolic complication including splenic infarct. The patient has significant chronic kidney disease with probably superimposed acute kidney injury. Whether or not the patient will be a candidate for chronic dialysis will be deferred to nephrology service. However, in anticipation of cardiac catheterization, temporary hemodialysis catheter was placed and patient was dialyzed yesterday. The patient will be dialyzed today again and we will discuss with nephrology service removal as much fluid as patient's hemodynamics would tolerate to optimize his respiratory status and wean his FiO2 supplementation as much as possible. At present time, patient is on 50% FiO2 through high flow nasal cannula. We will proceed with conservative fluid and oxygen management strategy. The patient is on broad- spectrum antibiotics. He has elevated procalcitonin, which may be related to severe sepsis vs renal failure (falsely elevated). Patient has significant leukocytosis, low grade fever and diarrhea--stool for C.diff sent, Flagyl started. Noninfectious origin of leukocytosis should also be considered, especially in the setting of splenic infarct. Possibility of thromboembolic phenomenon due to intracardiac thrombi not seen on transthoracic echocardiogram is also a possibility. I will discuss need for transesophageal echocardiogram with cardiology service. However, at present time, I will proceed with therapeutic anticoagulation as risk of ongoing thromboembolic phenomenon overweigh the risk of gastrointestinal bleeding at present time. No overt bleeding observed. Hemoglobin is stable. We will maintain hemoglobin level around 10 as patient has [id number] myocardial infarction. We will continue to target euvolemia, euglycemia, normothermia and oxygen saturation more than 90%. If patient tolerates hemodialysis well, he would need afterload reduction with hydralazine/isosorbide. We will continue with gastrointestinal prophylaxis. Patient has cardiogenic pulmonary edema and his respiratory failure deteriorated despite HD today, which removed 1L. Failed BPAP and getting intubated. With protected airways--will touch base with cardio about DEMARCUS and cath again. ccm time 40 min Joby Hernandez MD cc: [id number] TT: 09/01/2016 09:32:39 Confirmation # [id number] Dictation # [id number] en MTDD
--- NOTE | 2016-09-01 09:46 | RAD ---
HISTORY: fluid overload COMPARISON: 08/31/2016 FINDINGS: LUNGS: Increasing pulmonary edema PLEURA: No significant pleural effusion identified, no pneumothorax apparent. CARDIOVASCULAR: Normal. OSSEOUS STRUCTURES: No significant abnormalities. VISUALIZED UPPER ABDOMEN: Normal. OTHER FINDINGS: Central lines and tubes unchanged IMPRESSION: Increasing pulmonary edema
[2016-09-01 10:59] LABS: MALARIA BLOOD Negative
--- NOTE | 2016-09-01 11:27 | CP.PCM.PN ---
Subjective - Date & Time of Evaluation Date of Evaluation: 09/01/16 Time of Evaluation: 09:00 - Subjective Subjective: Patient continues to be on the ventilator, now undergoing dialysis. No fevers overnight although he has a Temp of 99.9 F this morning. Objective - Vital Signs/Intake and Output Vital Signs (last 24 hours): Temp Pulse Resp BP Pulse Ox 99.9 F H 130 H 27 H 115/55 L 90 L 09/01/16 08:00 09/01/16 11:02 09/01/16 11:02 09/01/16 11:02 09/01/16 11:02 Intake and Output: 09/01/16 09/01/16 06:59 18:59 Intake Total 495 Output Total 200 Balance 295 - Medications Medications: Current Medications Acetaminophen (Tylenol 650 Mg Supp) 650 mg RC Q4H PRN PRN Reason: Fever >100.4 F Arformoterol Tartrate (Brovana) 15 mcg IH [id number] [facility] Last Admin: 09/01/16 07:10 Dose: 15 mcg Artificial Tears (Artificial Tears) 0 ml OU Q6H [facility] Aspirin (Ecotrin) 81 mg PO DAILY [facility] Last Admin: 08/31/16 10:05 Dose: 81 mg Budesonide (Pulmicort Respules) 0.5 mg IH [id number] [facility] Last Admin: 09/01/16 07:10 Dose: 0.5 mg Clopidogrel Bisulfate (Plavix) 75 mg NG DAILY [facility] Last Admin: 08/31/16 10:07 Dose: Not Given Furosemide (Lasix) 40 mg IVP Q12 [facility] Last Admin: 08/31/16 21:26 Dose: 40 mg Metronidazole (Flagyl) 100 mls @ 100 mls/hr IVPB Q8 YUVAL PRN Reason: Protocol Last Admin: 09/01/16 05:55 Dose: 100 mls/hr Doxycycline Hyclate 100 mg/ (Sodium Chloride) 100 mls @ 100 mls/hr IVPB Q12 [facility]UVAL PRN Reason: Protocol Stop: 09/10/16 10:01 Last Admin: 08/31/16 21:45 Dose: 100 mls/hr Cefepime HCl (Maxipime 1gm) 100 mls @ 100 mls/hr IVPB Q24H YUVAL PRN Reason: Protocol Stop: 09/05/16 15:16 Last Admin: 08/31/16 17:01 Dose: 100 mls/hr Amiodarone HCl/Dextrose (Nexterone 360 Mg In D5w 200 Ml (Premix)) 200 mls @ 16.667 mls/hr IV .Q12H YUVAL; 0.5 MG/MIN PRN Reason: Protocol Last Admin: 09/01/16 04:20 Dose: 16.667 mls/hr Heparin Sodium/Sodium Chloride (Heparin 22179 Units/250ml 1/2 Normal Saline) 250 mls @ 13.904 mls/hr IV .[id number] PRN; Protocol; 18 UNITS/KG/HR PRN Reason: ADJUST RATE PER PROTOCOL Last Admin: 09/01/16 07:30 Dose: 11.587 mls/hr Insulin Human Lispro (Humalog Low) 0 units SC ACHS YUVAL PRN Reason: Protocol Last Admin: 09/01/16 08:02 Dose: 1 units Metoprolol Tartrate (Lopressor) 5 mg IVP Q6H [facility] Last Admin: 09/01/16 08:19 Dose: 5 mg Pantoprazole Sodium (Protonix Inj) 40 mg IVP Q12 [facility] Last Admin: 08/31/16 21:26 Dose: 40 mg Tetrahydrozoline HCl/Zinc Sulfate (Visine 0.05% Opht Soln) 0 ml OU BID PRN PRN Reason: Dry eyes - Labs Labs: 09/01/16 05:40 09/01/16 05:40 PT 17.7 Seconds (9.9-11.8) H 09/01/16 05:40 INR 1.64 (0.93-1.08) H 09/01/16 05:40 APTT 46.6 Seconds (23.7-30.8) H 09/01/16 05:40 - Constitutional Appears: Other (On high flow oxygen) - Head Exam Head Exam: NORMAL INSPECTION - Neck Exam Neck Exam: absent: Lymphadenopathy, Meningismus - Respiratory Exam Respiratory Exam: Decreased Breath Sounds - Cardiovascular Exam Cardiovascular Exam: +S1, +S2 - GI/Abdominal Exam GI & Abdominal Exam: Soft. absent: Tenderness Assessment and Plan - Assessment and Plan (Free Text) Plan: Assessment Severe sepsis with hypoxic and S/P ventilator-dependent respiratory failure probably secondary to community-acquired pneumonia R/O aspiration pneumonitis in a patient with acute on chronic renal failure and lactic acidosis as well as possible non-ST elevation myocardial infarction with acute CHF Persistently elevated leukocytosis R/O new onset sepsis source to be determined Chronic renal failure now on hemodialysis history of cerebrovascular accident S/O left carotid endarterectomy history of immune-thrombocytopenic purpura BPH CAD Plan Continue Cefepime, Doxycycline and Flagyl pending final cx results (day 6), to complete 4-7 days of therapy Will repeat blood, urine cx, PCT; reviewed CT Abdomen and pelvis which did not show acute inflammation or fluid collection but did show new splenic infarcts, which may explain the elevated leukocytosis, but still need to rule out new sepsis Babesia tests are negative; Mycoplasma IgM negative; urine Legionella Ag is negative Patient may need cardiac cath but remains an issue because of the renal failure Will continue to follow clinically Overall prognosis is poor
[2016-09-01] MEDS: Aritificial Tears (15ml) OU SCH ×2 (12:08→17:46)
--- NOTE | 2016-09-01 12:29 | PN ---
DATE: 09/01/2016 The patient is an 81-year-old male. The patient was seen and examined on the bedside, sleepy, arousa ble, comfortable, does not look like in respiratory distress. No fever, no chills. Getting high consuelo w oxygen, 50% of FiO2. He is on heparin drip and amiodarone drip. PHYSICAL EXAMINATION: VITAL SIGNS: Temperature 98.6, pulse 130, blood pressure 115/55, respiratory rate 27, oxygen saturat ion 90%. HEENT: Head: Normocephalic, atraumatic. Eyes: PERRLA. Extraocular muscles intact. Conjunctivae clear. Nose patent. Mucous membranes moist. NECK: Supple. No carotid bruit, no JVD, no thyromegaly. CHEST: Bilaterally symmetrical. HEART: S1, S2 positive. LUNGS: Clear to auscultation. ABDOMEN: Soft. Bowel sounds positive. No organomegaly. EXTREMITIES: No edema, no cyanosis. NEUROLOGIC: The patient is sleepy, arousable, moving all 4 extremities. No focal deficits. MEDICATIONS: Artificial tears, Brovana, doxycycline, Ecotrin, Flagyl, heparin, Lasix, cefepime, amio darone, clopidogrel, Protonix, Pulmicort, Tylenol. LABORATORIES: White blood cells 30.6, hemoglobin 9.0, hematocrit 25.1, platelets 206. Sodium 140, p otassium 3.5, BUN 78, creatinine 4.4, glucose 154, calcium 7.3. ASSESSMENT AND PLAN: The patient is an 81-year-old male with leukocytosis, anemia, hypokalemia, ____ _, renal insufficiency, hyperglycemia, hypocalcemia. Seen by the potato chip sorter, Dr. Aundrea Alcazar. H istory of paroxysmal atrial fibrillation. The patient is getting amiodarone drip and Cardizem drip. According to Dr. Aundrea Alcazar, dialysis initiated with potassium 4 bath, blood flow rate of 250. S o far, patient tolerating dialysis very well. ID is on the case. The patient is still in the unit. I reviewed Dr. Joby Hernandez's notes also. The patient has non-ST elevated myocardial infarction in the setting of paroxysmal atrial fibrillation and potential/possible thromboembolic complications including splenic infarction. The patient has significant chronic kidney disease with probably supe rimposed acute kidney injury. Temporary hemodialysis catheter was placed and patient was dialyzed ye sterday. The patient will be dialyzed again today. The patient is on broad-spectrum antibiotics. T he patient is very critical. Gastrointestinal and deep venous thrombosis prophylaxis. Repeat labs. Will follow up. Sana Myers MD cc: [id number] TT: 09/01/2016 12:29:05 Confirmation # [id number] Dictation # [id number] en
--- NOTE | 2016-09-01 12:35 | PN ---
DATE: 09/01/2016 Hemodialysis note. SUBJECTIVE: The patient is seen in the ICU. He remains on high flow oxygen. He is in mild respirat ory distress. His heart rate is better controlled now. He is tachypneic. He is breathing between 24-28. PHYSICAL EXAMINATION: GENERAL: Elderly male, lying in bed, in the ICU. VITAL SIGNS: Blood pressure 115/55, heart rate 130, respiratory rate 27, temperature 99.9. LUNGS: Bilateral rales. CARDIAC: S1, S2, irregularly irregular. EXTREMITIES: 2+ pitting edema of the upper extremities, 1+ pitting edema of the lower extremities. PLAN: 1. Dialysis with potassium 4 bath. 2. Ultrafiltrate about 1.5 kilograms. 3. Will require dialysis again tomorrow. 4. May require chronic dialysis. Aundrea Alcazar MD cc: [id number] TT: 09/01/2016 12:34:44 Confirmation # [id number] Dictation # [id number] en
--- NOTE | 2016-09-01 12:44 | PN ---
DATE: 09/01/2016 SUBJECTIVE: The patient is seen in the ICU. He is lying in bed. He is on high flow oxygen. He is somewhat lethargic, but he is arousable. Appears to be in mild respiratory distress. He remains on amiodarone IV 8.5 mg/kg/minute. He is also back on heparin. His urine output has been 1150 for the last 24 hours. PHYSICAL EXAMINATION: GENERAL: Elderly male lying in bed in the ICU, in mild respiratory distress. VITAL SIGNS: Blood pressure 122/53, heart rate 85, respiratory rate 25, temperature 99.9. HEENT: Normocephalic, atraumatic, positive pallor. NECK: Supple, no JVD. LUNGS: Bilateral vesicular breath sounds, bilateral crackles, prolonged expiration. CARDIAC: S1, S2, irregularly irregular. No murmur, no rub. ABDOMEN: Soft, nondistended, positive tenderness in the epigastrium, bowel sounds present. EXTREMITIES: 2+ pitting edema of the upper extremities, 1+ pitting edema of the lower extremities. INTAKE AND OUTPUT: 1192/1150. LABORATORY DATA: WBC 30.6, hemoglobin 9.0, hematocrit 25, platelets 206; 91% polys, 4% bands. Sodiu m 140, potassium 3.5, chloride 108, CO2 19, BUN 78, creatinine 4.4, glucose 129, calcium 7.3, phospho miky 5.6, troponin 22, albumin 1.9, corrected calcium is 8.7. Blood gas: PH 7.4, pCO2 of 25, pO2 54. CT of the abdomen: Increasing bilateral pleural effusions, increasing subcutaneous edema, hypodensit y in spleen suspicious of splenic infarct. CURRENT MEDICATIONS: Brovana, doxycycline 100 q. 12, aspirin 81, Flagyl, heparin drip, insulin, Lopr essor p.r.n., cefepime 1 gram daily, amiodarone drip, Plavix 75, Protonix, Tylenol. ASSESSMENT: 1. Multiorgan dysfunction. 2. Gastrointestinal bleed. 3. Possible aspiration pneumonia. 4. Respiratory failure. 5. Acute kidney injury superimposed on chronic kidney disease, stage IV. 6. Act-TF-tqplahqyw myocardial infarction. 7. 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 8. Underlying coronary artery disease. 9. Vzy-ousvnes-cdzbsdrwd diabetes mellitus 10. Peripheral vascular disease. PLAN: 1. The patient received first dialysis yesterday, he will be dialyzed again today. We will attempt to remove about 1.5 kg of fluid. 2. The patient will be dialyzed with a potassium 4 bath because his potassium is 3.5. 3. Continue empiric antibiotics, cover for hospital-acquired infections. 4. Dose all antibiotics for creatinine clearance less than 10. 5. Continue heparin drip in light of [id number] OK and splenic emboli/infarct. 6. Continue IV amiodarone for rate control. 7. Monitor H and H closely. 8. Daily labs. 9. Will likely require dialysis again tomorrow. 10. Case is discussed with Dr. Hernandez. 11. Case is discussed with ICU staff at length. 12. Case discussed with son and daughter at bedside. More than 35 minutes were spent in the care of this critically ill patient. Aundrea Alcazar MD cc: [id number] TT: 09/01/2016 12:43:45 Confirmation # [id number] Dictation # [id number] mn
[2016-09-01 13:48] LABS: URINE BILIRUBIN NEGATIVE (NEGATIVE); URINE BLOOD LARGE (NEGATIVE); URINE GLUCOSE (UA) NEGATIVE (NEGATIVE); URINE KETONE TRACE mg/dL (NEGATIVE); URINE LEUKOCYTE ESTERASE SMALL Leu/uL (NEGATIVE); URINE PROTEIN 100 mg/dL (<30 mg/dL); URINE UROBILINOGEN 0.2 E.U./dL (<1 E.U./dL)
[2016-09-01 13:59] LABS: URINE APPEARANCE TURBID (CLEAR); URINE COLOR YELLOW (YELLOW)
[2016-09-01 14:07] LABS: URINE BACTERIA FEW (NEG)
[2016-09-01 14:44] LABS: BASO # 0.02 [, K/mm3] (0.0-2.0); BASO % 0.1 % (0.0-3.0); EOS % 0.1 % (1.5-5.0); GRAN # 35.38 (1.4-6.5); GRAN % 93.3 % (50.0-68.0); HEMATOCRIT 26.3 % (42.0-52.0); LYMPH # 0.9 (1.2-3.4); LYMPH % 2.4 % (22.0-35.0); MEAN CELL VOLUME 86.2 fL (80.0-105.0); MEAN CORPUSCULAR HEMOGLOBIN 30.8 pg (25.0-35.0); MEAN CORPUSCULAR HGB CONC 35.7 g/dl (31.0-37.0); MEAN PLATELET VOLUME 13.1 fl (7.0-11.0); MONO # 1.6 (0.1-0.6); MONO % 4.1 % (1.0-6.0); PLATELET COUNT 216 [, 10^3/uL] (120.0-450.0); RED CELL DISTRIBUTION WIDTH 16.4 % (11.5-14.5)
[2016-09-01 14:47] LABS: ALB/GLOB RATIO 0.8 (1.1-1.8); BILIRUBIN,TOTAL 0.6 mg/dL (0.2-1.3); CALCIUM 7.2 mg/dL (8.4-10.5); MAGNESIUM 1.9 mg/dL (1.7-2.2); PHOSPHOROUS 4.4 mg/dL (2.5-4.5); POTASSIUM 3.7 mmol/L (3.6-5.0); TOTAL PROTEIN 4.4 g/dL (5.8-8.3)
[2016-09-01 14:48] LABS: ADD MANUAL DIFF? NO; WHITE BLOOD COUNT 37.9 [, 10^3/ul] (4.5-11.0)
[2016-09-01] MEDS ORDERED: Propofol 10 mg/ml Inj (20 ML) IVP ONE (15:20)
[2016-09-01] MEDS ORDERED: Etomidate 20 mg/10ml Inj IVP STA (15:22)
[2016-09-01] MEDS ORDERED: Midazolam 100 mg/100ml in NS 100 ML IV PRN (15:34)
--- NOTE | 2016-09-01 15:58 | RAD ---
PROCEDURE: Portable chest HISTORY: assess ET tube placement s/p intubation COMPARISON: Earlier same day TECHNIQUE: FINDINGS: The endotracheal tube is in satisfactory position at the level of the clavicles. There is slight improvement in pulmonary edema IMPRESSION: Endotracheal tube in satisfactory position
[2016-09-01] MEDS: Cefepime 1gm in NS 100ml 100 ML IVPB SCH (16:03)
[2016-09-01 16:52] LABS: ABG MECHANICAL RATE 14; ARTERIAL BLOOD GAS HCO3 21.8 mmol/L (21-28); ARTERIAL BLOOD GAS PH 7.47 (7.35-7.45); ATERIAL BLOOD GAS PEEP 5
--- NOTE | 2016-09-01 19:06 | PN ---
DATE: 09/01/2016 REFERRING PHYSICIAN: Dr. Myers. SUBJECTIVE: He is very lethargic on noninvasive ventilation. Family is at bedside, but arousable, u nable to clear pulmonary secretion. No hemoptysis, no hematemesis, no hematuria. Does have leg swel ling. OBJECTIVE: GENERAL: Moderate to severe distress. VITAL SIGNS: Temperature is 98, heart rate is 89, respiratory rate is 40, blood pressure 110/47, pul se ox 99% on noninvasive ventilation, crowded airway. NECK: Supple, no JVD. LUNGS: Has a crackle 2/3 up, scattered rhonchi. HEART: S1 and S2. ABDOMEN: Soft, nontender, nondistended. EXTREMITIES: Does have edema. NEUROLOGIC: Lethargic. MEDICATIONS: He is on Brovana 15 mcg inhaled twice a day, doxycycline 100 mg twice a day, Ecot rin 81 mg daily, Flagyl 500 mg q. 8 hours, weight based heparin protocol, Lasix 40 mg twice a day, me toprolol tartrate 5 mg q. 6 hours, cefepime 1 g IV daily, , amiodarone IV, Levaquin 5 mg daily, Protonix 40 mg q. 12 hours, Pulmicort inhaled twice a day, Tylenol p.r.n. LABORATORY DATA: Shows hemoglobin 9.4, hematocrit 26.3, WBC 37.9, platelet is 216, PTT 121. INR 1.6 4. Blood gases this morning show pH 7.43, pCO2 of 25/54 on BiPAP with 40% oxygen. Sodium 140, potas sium 3.7, chloride 105, bicarbonate 24, BUN 48, creatinine 2.9, glucose 125, calcium is 7.2, phosphor us 4.4, magnesium 1.9, AST 29, ALT 13, alk phos is 66, albumin is 1.9. Procalcitonin 3.37. MICROBIOLOGY: Stool for C. diff is negative. Chest x-ray done this morning shows pulmonary edema. IMPRESSION AND PLAN: Multiorgan failure, cardiomyopathy, gastric ulcers, status post gastrointestina l bleed requiring multi units of packed RBCs, renal failure on dialysis from the last few days, encep halopathy. Case discussed with patient and family at bedside. All the questions answered. I also s poke to grain oilseed or pasture farm manager, Dr. Hernandez in detail. Need to make a decision either to make the patient DNR or need to do aggressive care including intubation, pressors if needed. Dr. Hernandez and medical res ident spoke to the family again, decision was made that family wishing of aggressive care for now, re commended to intubate the patient, decrease work of breathing and try to control cardiopulmonary syst em. Will suggest continue antibiotics, already on proton inhibitor. Overall poor prognosis. Follow up ABG, chest x-ray, CBC, CMP in the morning. Critical care time spent more than 35 minutes. Thank you and we will follow with you. Shawn Ruff MD cc: [id number] TT: 09/01/2016 19:05:53 Confirmation # [id number] Dictation # [id number] cn
--- NOTE | 2016-09-01 21:58 | PN ---
DATE: 09/01/2016 SUBJECTIVE: This patient was seen and evaluated earlier. The patient got intubated. PHYSICAL EXAMINATION: VITAL SIGNS: His T max was 100.2, blood pressure 110/____, respirations 20. HEENT: Atraumatic and anicteric. Facial droop noticed. NECK: Supple. HEART: S1, S2 heard. LUNGS: Bilateral air entry present. ABDOMEN: Soft. There is no tenderness. EXTREMITIES: Mild edema present. LABORATORY DATA: WBC count is 37.9, hemoglobin 9.4, hematocrit 26.3, platelets 216, BUN 48, creatini ne 2.9. PT is 46. INR is 1.64. LFTs showed normal liver enzymes. BUN is 48, creatinine 2.9. IMPRESSION: This is an 81-year-old patient with a history of ITP, coronary artery disease status pos t percutaneous coronary intervention on aspirin and Plavix, admitted with gastrointestinal bleeding. Found to have 2 gastric ulcers; one was a pigmented, another one was clean based. The patient's asp irin and Plavix resumed. The patient was also septic on antibiotics. The antibiotics continued by ID. The patient did receiv e some antibiotics before, but the stool for C. difficile was negative. The patient is on Protonix. Continue that. Followup of the hemoglobin and hematocrit. The patient was restarted on aspirin and Plavix. If the patient's hemoglobin falls then we need to evaluate the anticoagulation therapy. We will continue to closely follow. The patient has gotten reintubated aga in. The patient has a orogastric tube, can be seen feeding slowly. Thank you very much for allowing us to participate in the care of the patient. Eleonora Dillard MD cc: [id number] TT: 09/01/2016 21:57:55 Confirmation # [id number] Dictation # [id number] alberto
[2016-09-01 23:16] LABS: VENOUS BLOOD GAS BASE EXCESS -0.6 mmol/L (0.0-2.0); VENOUS BLOOD PH 7.43 (7.32-7.43)
[2016-09-02 00:28] LABS: HEMATOCRIT 25.8 % (42.0-52.0)
[2016-09-02] MEDS: Metoprolol 1 mg/ml Inj IVP SCH ×4 (01:57→20:10)
[2016-09-02] MEDS: metroNIDAZOLE IV 500 mg/100 ml 100 ML IVPB SCH ×3 (05:17→21:10)
[2016-09-02] MEDS: Amiodarone 360 mg/D5W 200 ml 200 ML IV SCH (05:42)
[2016-09-02] MEDS: Aritificial Tears (15ml) OU SCH ×4 (05:42→18:08)
[2016-09-02 06:13] LABS: ARTERIAL BLOOD GAS HCO3 22.9 mmol/L (21-28); ARTERIAL BLOOD GAS O2 CAPACITY 18.7 mL/dl (16-24); ARTERIAL BLOOD GAS O2 CONTENT 18.1 ML/dl (15-23); ARTERIAL BLOOD GAS PH 7.45 (7.35-7.45); CARBOXYHEMOGLOBIN 1.5 % (0.5-1.5); HHB 2.9 % (0-5); METHEMOGLOBIN 0.6 % (0.0-3.0)
[2016-09-02 06:42] LABS: EOS # 0.2 (0.0-0.7); EOS % 0.9 % (1.5-5.0); GRAN # 16.66 (1.4-6.5); GRAN % 88.2 % (50.0-68.0); HEMATOCRIT 24.1 % (42.0-52.0); LYMPH # 0.9 (1.2-3.4); LYMPH % 4.9 % (22.0-35.0); MEAN CELL VOLUME 85.8 fL (80.0-105.0); MEAN CORPUSCULAR HEMOGLOBIN 30.2 pg (25.0-35.0); MEAN CORPUSCULAR HGB CONC 35.3 g/dl (31.0-37.0); MEAN PLATELET VOLUME 13.2 fl (7.0-11.0); MONO # 1.1 (0.1-0.6); PLATELET COUNT 159 [, 10^3/uL] (120.0-450.0); RED CELL DISTRIBUTION WIDTH 16.3 % (11.5-14.5); WHITE BLOOD COUNT 18.9 [, 10^3/ul] (4.5-11.0)
[2016-09-02 07:03] LABS: ALB/GLOB RATIO 0.8 (1.1-1.8); BILIRUBIN,TOTAL 0.5 mg/dL (0.2-1.3); PHOSPHOROUS 5.3 mg/dL (2.5-4.5); POTASSIUM 3.5 mmol/L (3.6-5.0); TOTAL PROTEIN 3.8 g/dL (5.8-8.3)
[2016-09-02] MEDS: Insulin Lispro (humaLOG) LOW Coverage SC SCH ×4 (07:54→21:52)
--- NOTE | 2016-09-02 08:21 | RAD ---
PROCEDURE: CHEST RADIOGRAPH, 1 VIEW HISTORY: intubated, f/u COMPARISON: 09/01/2016 FINDINGS: LUNGS: Stable diffuse bilateral interstitial infiltrates. PLEURA: No pneumothorax or pleural fluid seen. CARDIOVASCULAR: Normal. OSSEOUS STRUCTURES: No significant abnormalities. VISUALIZED UPPER ABDOMEN: Normal. OTHER FINDINGS: Tubes and catheters unchanged in position. IMPRESSION: No significant interval change.
[2016-09-02] MEDS ORDERED: Midazolam 2 MG/2 ML VIAL ONE (08:51)
[2016-09-02] MEDS ORDERED: Lidocaine 2% Inj (20ml) ONE (08:51)
[2016-09-02] MEDS: Budesonide 0.5 mg/2 ml Inhal Susp UD IH SCH ×2 (08:52→20:19)
[2016-09-02] MEDS ORDERED: Iohexol 350mgl/ml 50 ML ONE (08:52)
[2016-09-02] MEDS: Arformoterol 15 mcg/2 ml Inh Sol IH SCH ×2 (08:52→20:49)
[2016-09-02] MEDS ORDERED: Iodixanol 320 MG/ML 100 ML BOTTLE IV ONE (08:53)
[2016-09-02] MEDS ORDERED: Iodixanol 320 MG/ML 200 ML BOTTLE IV ONE (08:53)
[2016-09-02] MEDS ORDERED: Nitroglycerin 50mg in D5W 0 ML IV ONE (08:53)
[2016-09-02 09:09] LABS: ADD MANUAL DIFF? NO
[2016-09-02] MEDS ORDERED: Phenylephrine 10 mg/ml Inj ONE (09:56)
--- NOTE | 2016-09-02 09:58 | PN ---
DATE: 09/02/2016 SUBJECTIVE: The patient is currently seen in CCU bed 1. The patient was reintubated yesterday. He is in the process of going down for a cardiac catheterization. Hemodialysis will follow the cardiac catheterization. According to the staff, the patient is having diarrhea. Repeat studies for C. diff are pending. Initial studies were negative. The patient had been started on Nepro for nutrition. He did receive his first dialysis yesterday. It was tolerated well and 1.5 L of fluid was removed wi dialysis. MEDICATIONS: Medication list reviewed. The patient is currently on Brovana, doxycycline, Ecotrin, F lagyl, heparin is on hold, insulin, Lasix, Lopressor, Maxipime, midazolam, amiodarone, Plavix, Proton ix, Pulmicort, p.r.n. Tylenol and Visine eyedrops. OBJECTIVE: INTAKE AND OUTPUT: Intake 2037, output 0 which includes 1500 mL removed with dialysis yesterday. VITAL SIGNS: Blood pressure 114/49, pulse 74, temperature 99.1, respiratory rate is 23. Pulse ox is 99%. HEENT: Eyes are closed. The patient is intubated. NECK: No neck vein distention. CHEST: Decreased breath sounds at bases. Scattered rales and rhonchi. CARDIOVASCULAR: Shows an irregular S1, S2. No S3, no S4. Mitral regurgitation, tricuspid regurgita tion. No rub. ABDOMEN: Soft. Bowel sounds normal. No rebound, no guarding, no masses. EXTREMITIES: Show diminished lower extremity pulses bilaterally. No lower extremity edema. LABORATORY DATA AND IMAGING: White blood cell count today down to 18.9 from 37.9, hemoglobin down to 8.5 from 9.4. Platelet count is 159,000. Chemistries: Potassium 3.5, sodium level 139, BUN 62 wit h a creatinine of 3.8. Glucose is 170. Calcium 7.0. With an albumin of 1.7, it corrects to normal. Phosphorus 5.2 with a magnesium of 2.0. MICROBIOLOGY: All cultures negative to date. ASSESSMENT: 1. Acute renal failure superimposed on chronic kidney disease stage IV. The patient presently appea rs to be dialysis dependent. He will have a cardiac catheterization to be followed by hemodialysis t mandeep. 2. History of non-insulin dependent diabetes mellitus. The patient to continue sliding scale insuli n. Glucose control is acceptable. 3. History of arteriosclerotic heart disease, status post non-ST elevation myocardial infarction, ca rdiomyopathy, ejection fraction 35%, mitral regurgitation, tricuspid regurgitation. The patient is p resently leaving for a cardiac catheterization with Dr. Samson. 4. History of sepsis, hypotension, possible aspiration pneumonia. The patient will continue antibio tic therapy. 5. History of atrial fibrillation, rate controlled. The patient is on amiodarone. 6. History of secondary hyperparathyroidism. Phosphorus level was 5.3. The patient is appropriatel y receiving Nepro nutrition. 7. History of anemia in part secondary to chronic kidney disease. No evidence for any obvious gastr ointestinal bleeding. The patient has received transfusions. The patient will continue to have hemo globin monitored closely. The patient will be started on Aranesp. He has received 5 units of packed red blood cells previously. 8. History of peripheral vascular disease, status post left-sided carotid endarterectomy, currently stable. 9. Respiratory failure. The patient was reintubated yesterday. PLAN: 1. Hemodialysis to follow immediately after the patient's cardiac catheterization. 2. Continue to monitor labs closely. 3. We will continue to support the patient with acute dialysis in the CCU. His urine output has sig nificantly slowed down. 4. Case discussed with sound effects manager and CCU staff. Greater than 35 minutes spent in the care of this critically ill patient. Maynor Malave MD cc: [phone] TT: 09/02/2016 09:57:21 Confirmation # [id number] Dictation # [id number] tn
[2016-09-02] MEDS ORDERED: Vancomycin 1gm in NS 250ml 250 ML IVPB STA (10:04)
[2016-09-02] MEDS ORDERED: Eptifibatide 20 mg/10mL Inj IVP ONE (10:06)
[2016-09-02] MEDS ORDERED: EPTIFIBATIDE IV ONE (10:06)
[2016-09-02] MEDS ORDERED: Sodium Chloride 0.45% 1,000 ML IV SCH (10:45)
--- NOTE | 2016-09-02 10:47 | CARDCATH ---
PROCEDURE DATE: 09/02/2016 HISTORY: The patient is an 81-year-old male who presents with persistent hemodynamic instability con sistent with cardiogenic shock. He was reintubated yesterday. His troponins have been markedly elev ated. Because of his documented coronary disease and markedly elevated troponins, we were asked to bring felicita corrales over to the [facility] for coronary angiography and possible PTCA because of his hemodynamic instabil ity. PROCEDURE: Emergency cardiac catheterization with left ventriculogram and coronary angiography. The right femoral artery was cannulated with a 6-Moroccan sheath. There were no complications. The findings on catheterization revealed a chronically occluded RCA. The left main artery revealed diffuse atherosclerosis without critical lesions. The circumflex artery revealed a patent stent that was placed last year. The LAD was diffusely diseased with multiple 50% lesions as well as disease in a diagonal vessel. His LV function was globally hypokinetic with an EF of approximately 30-35%. Angiogram of his lower extremities revealed diffuse atherosclerosis in his femoral arteries, iliac ar teries as well as a patent stent in his bilateral iliacs. Manual compression will be used to close the femoral artery site. The patient tolerated the procedure well, remaining on the ventilator. SUMMARY: 1. Diffuse triple-vessel coronary artery disease, compared to his previous catheterization is unchan ged other than patency of the stent that relieved his circumflex lesion placed approximately a year a go. 2. Deterioration of his left ventricular function to an ejection fraction of 30-35%. 3. Severe peripheral vascular disease. Given these findings, the patient's ischemia of his coronary arteries is likely due to his prolonged tachycardia and hypotension from his GI bleed, anemia as well as diffuse coronary disease. There is no evidence for left ventricular thrombosis nor thrombosis of his coronary arteries. Given these findings, the patient's prognosis is poor. We will add IV dobutamine in hopes of helping his LV function and his CHF symptomatology and hopefully to get him off the ventilator. Bashir Samson MD cc: [phone] TT: 09/02/2016 10:46:44 tx
[2016-09-02] MEDS ORDERED: Darbepoetin Alfa 100 mcg/ml Inj IVP ONE (11:00)
[2016-09-02] MEDS: DOBUTamine 500mg/250ml D5W 250 ML IV PRN (11:07)
[2016-09-02] MEDS: Meropenem 500 MG in Sodium Chloride 0.9% 100 ML IVPB SCH (11:59)
--- NOTE | 2016-09-02 12:31 | PN ---
DATE: 09/02/2016 The patient seen and examined at bedside. He is sedated with Versed 2 mg per hour. It was just stopped for weaning trial. The patient is status post cardiac catheterization and left ventriculography today. As per there are no new findings on coronary angiography, however severe triple vessel disease present, but recently put stents are patent. He is on amiodarone 0.5 mg per minute and dobutamine 2.5 mcg per kilogram per minute. The patient is on PRVC 400/14/50, he did not tolerate pressure support trial today with rapid shallow breathing index going rapidly up to much above 105. PHYSICAL EXAMINATION: VITAL SIGNS: Heart rate 115, oxygen saturation 93%, blood pressure 125/55. HEAD AND NECK: Atraumatic. LUNGS: Few crackles bibasilar. HEART: Regular rate and rhythm. S1, S2 distant. ABDOMEN: Soft, nontender, nondistended. MUSCULOSKELETAL: No C/C/E. NEUROLOGIC: The patient moves all extremities. SKIN: Moist. PSYCHIATRIC: The patient is sedated. LABORATORY DATA: WBC 18.9, hemoglobin 8.5, platelet count 159. Sodium 139, potassium 3.5, chloride 107, carbon dioxide 24, BUN 62, creatinine 3.8, glucose 170, AST 39, ALT 40. Chest x-ray today showed no significant interval change, stable diffuse bilateral interstitial infiltrate. MEDICATIONS: Amiodarone, Brovana, dobutamine, doxycycline, aspirin, heparin drip, Lasix, Lopressor, meropenem, Plavix, Protonix, budesonide, intermittent vancomycin, Versed. ASSESSMENT AND PLAN: This is an 81-year-old gentleman with severe left ventricular systolic dysfunction in the setting of diffuse and multiorgan vasculopathy, peripheral vascular disease who developed hypoxemic respiratory failure secondary to cardiogenic pulmonary edema in the setting of likely supply /demand mismatch ischemia. The patient had undergone cardiac catheterization today which did not reveal new lesions, even though extent of his already existent coronary vasculopathy is still very significant. Provided extent and severity of his vasculopathy and recent infarct in the splenic artery, I would continue with therapeutic anticoagulation in the setting of atrial fibrillation as well as dual antiplatelet therapy at present time. Conservative fluid management with dialysis removing as much fluid as hemodynamics tolerates will be utilized and inotropic support with dobutamine provided (milrinone was forgone as patient has renal failure). Hydralazine/isosorbide will be started for afterload reduction. It appears that at the present time, the patient's cardiac status is as much optimized as possible and he will get 1 unit PRBC during HD to maintain Hb close to 10. We will continue with weaning trial, sedation vacation, in attempt to wean him off of mechanical ventilation. Infectious component of pulmonary infiltrates cannot be ruled out at present time as well. The patient is followed up by ID service and he is on broad- spectrum antibiotics. We also will continue with protective lung ventilation strategy, conservative fluid and oxygen management. We will try to avoid high FIO2 and rather work with PEEP for alveoli recruitment. Avoiding high fi02 will also allow to minimize interaction with amiodarone and avoid potential for acute pulmonary toxicity. We will continue to target euvolemia, euglycemia, normothermia and oxygen saturation more than 90%. We will continue with head of bed elevated more than 35 degrees. We will continue with GI prophylaxis. The patient tolerates enteral nutrition well. We will continue to maintain blood glucose within 140 to 180 range according to NICE-SU[employer] trial. ccm time 40 min Joby Hernandez MD cc: [id number] TT: 09/02/2016 12:30:42 Confirmation # [id number] Dictation # [id number] MTDD
--- NOTE | 2016-09-02 12:59 | CP.PCM.PN ---
Subjective - Date & Time of Evaluation Date of Evaluation: 09/02/16 Time of Evaluation: 10:00 - Subjective Subjective: Noted patient to be intubated again because of worsening respiratory failure. Patient also underwent cardiac cath today. Had low grade temperatures overnight with a max temp of 100.2 F. Patient also having watery greenish stool. Objective - Vital Signs/Intake and Output Vital Signs (last 24 hours): Temp Pulse Resp BP Pulse Ox 99.1 F 71 23 112/53 L 99 09/02/16 08:00 09/02/16 09:00 09/02/16 02:00 09/02/16 09:00 09/02/16 09:00 Intake and Output: 09/02/16 09/02/16 06:59 18:59 Intake Total 1079 Output Total 30 400 Balance 1049 -400 - Medications Medications: Current Medications Acetaminophen (Tylenol 650 Mg Supp) 650 mg RC Q4H PRN PRN Reason: Fever >100.4 F Arformoterol Tartrate (Brovana) 15 mcg [id number] Last Admin: 09/02/16 08:52 Dose: 15 mcg Artificial Tears (Artificial Tears) 0 ml OU Q6H [facility] Last Admin: 09/02/16 05:42 Dose: 1 drop Aspirin (Ecotrin) 81 mg PO DAILY [facility] Last Admin: 09/02/16 12:13 Dose: 81 mg Budesonide (Pulmicort Respules) 0.5 mg IH [id number] [facility] Last Admin: 09/02/16 08:52 Dose: 0.5 mg Clopidogrel Bisulfate (Plavix) 75 mg NG DAILY [facility] Last Admin: 08/31/16 10:07 Dose: Not Given Furosemide (Lasix) 40 mg IVP Q12 [facility] Last Admin: 09/02/16 12:22 Dose: Not Given Doxycycline Hyclate 100 mg/ (Sodium Chloride) 100 mls @ 100 mls/hr IVPB Q12 [facility] PRN Reason: Protocol Stop: 09/10/16 10:01 Last Admin: 09/02/16 12:16 Dose: 100 mls/hr Amiodarone HCl/Dextrose (Nexterone 360 Mg In D5w 200 Ml (Premix)) 200 mls @ 16.667 mls/hr IV .Q12H [facility]; 0.5 MG/MIN PRN Reason: Protocol Last Admin: 09/02/16 05:42 Dose: 16.667 mls/hr Heparin Sodium/Sodium Chloride (Heparin 85107 Units/250ml 1/2 Normal Saline) 250 mls @ 13.904 mls/hr IV [id number] PRN; Protocol; 18 UNITS/KG/HR PRN Reason: ADJUST RATE PER PROTOCOL Last Titration: 09/02/16 02:01 Dose: 9 units/kg/hr Midazolam 100 mg/100ml in NS (Midazolam 100 Mg/100ml In Ns) 100 mls @ 1 mls/hr IV .Q24H PRN; Protocol; 1 MG/HR PRN Reason: Sedation Last Titration: 09/01/16 19:03 Dose: 2 mg/hr Meropenem 500 mg/ Sodium (Chloride) 100 mls @ 100 mls/hr IVPB Q12 [facility] PRN Reason: Protocol Stop: 09/09/16 10:16 Last Admin: 09/02/16 11:59 Dose: 100 mls/hr Sodium Chloride (Sodium Chloride 0.45%) 1,000 mls @ 5 mls/hr IV .Q24H [facility] Stop: 09/02/16 14:00 Dobutamine HCl/Dextrose (Dobutamine/Dextrose 5% 500mg/250ml) 250 mls @ 5.797 mls/hr IV .Q24H PRN; Protocol; 2.5 MCG/KG/MIN PRN Reason: TITRATE PER PROTOCOL Last Admin: 09/02/16 11:07 Dose: 5.797 mls/hr Insulin Human Lispro (Humalog Low) 0 units SC ACHS [facility] PRN Reason: Protocol Last Admin: 09/02/16 11:54 Dose: Not Given Metoprolol Tartrate (Lopressor) 5 mg IVP Q6H [facility] Last Admin: 09/02/16 08:04 Dose: 5 mg Pantoprazole Sodium (Protonix Inj) 40 mg IVP Q12 [facility] Last Admin: 09/02/16 12:12 Dose: 40 mg Tetrahydrozoline HCl/Zinc Sulfate (Visine 0.05% Opht Soln) 0 ml OU BID PRN PRN Reason: Dry eyes - Labs Labs: 09/02/16 06:30 09/02/16 06:30 PT 17.7 Seconds (9.9-11.8) H 09/01/16 05:40 INR 1.64 (0.93-1.08) H 09/01/16 05:40 APTT 74.1 Seconds (23.7-30.8) H* 09/02/16 08:14 - Constitutional Appears: Other (Intubated and sedated) - Head Exam Head Exam: NORMAL INSPECTION - ENT Exam Additional comments: ET tube in place - Neck Exam Neck Exam: absent: Lymphadenopathy, Meningismus - Respiratory Exam Respiratory Exam: Rales (scattered) - Cardiovascular Exam Cardiovascular Exam: +S1, +S2 - GI/Abdominal Exam GI & Abdominal Exam: Soft. absent: Tenderness Assessment and Plan - Assessment and Plan (Free Text) Plan: Assessment Severe sepsis with hypoxic with again ventilator-dependent respiratory failure probably secondary to community-acquired pneumonia R/O aspiration pneumonitis in a patient with acute on chronic renal failure and lactic acidosis as well as possible non-ST elevation myocardial infarction with acute CHF; also with watery stools suspicious for C. diff. associated diarrhea in a patient with marked leukocytosis S/P cardiac cath Persistently elevated leukocytosis R/O new onset sepsis source to be determined Chronic renal failure now on hemodialysis history of cerebrovascular accident S/O left carotid endarterectomy history of immune-thrombocytopenic purpura BPH CAD Plan changed Cefepime to Merrem (has had 6 days of Cefepime); continue Doxycycline and Flagyl and gave a dose of IV Vancomycin and started PO Vancomycin pending blood, sputum, urine cx, stool for Cdiff reviewed CT Abdomen and pelvis which did not show acute inflammation or fluid collection but did show new splenic infarctsBabesia tests are negative; Mycoplasma IgM negative; urine Legionella Ag is negative follow up results of the cardiac cath Overall prognosis is poor
[2016-09-02] MEDS: Vancomycin 25 MG/ML PO SCH ×3 (14:04→21:40)
[2016-09-02] MEDS ORDERED: diltiaZEM IVPB 100mg in NS 100 ML IV PRN (16:10)
--- NOTE | 2016-09-02 16:14 | PN ---
DATE: 09/02/2016 REFERRING PHYSICIAN: Dr. Myers. Dr. Ruff covering himself and also Dr. Myers for today. SUBJECTIVE: He is intubated and sedated. Events noted. Had cardiac cath done, which shows compromi sed LV function with diffuse coronary artery disease. There is not much ET tube secretion. No hemop tysis, no hematemesis, no hematuria. Does have leg swelling. OBJECTIVE: GENERAL: On ventilator and sedated. VITAL SIGNS: Temperature is 98, heart rate is 88, respiratory rate is 22, blood pressure 124/52, pul se ox 99% on 50% oxygen. HEENT: Moist mucous membranes. Crowded airway. NECK: Supple, no JVD. ET tube looks okay. LUNGS: Has crackles at the bases, scattered rhonchi. HEART: S1 and S2. Tachycardic. ABDOMEN: Soft, nontender. No organomegaly. EXTREMITIES: There is trace edema of the lower extremities. NEUROLOGIC: Intubated and sedated. MEDICATIONS: He is on hydralazine 10 mg q.i.d., artificial tears to both eyes, Brovana 15 mcg inhale d twice a day, started on dobutamine, doxycycline 100 mg twice a day, Ecotrin 81 mg daily, Flagyl 100 mg q. 8 hours, heparin is on hold, insulin coverage, Imdur 30 mg daily, Lasix 40 mg twice a day, met oprolol tartrate 5 mg IV q. 6 hours, meropenem is 500 mg q. 12 hours, also getting midazolam for fernanda tion, amiodarone IV, Levaquin 5 mg daily, Protonix 40 mg q. 12 hours, Pulmicort inhaled twice a day, IV fluid half normal saline 10 mL per hour, Tylenol p.r.n. basis, vancomycin 500 mg q.i.d. LABORATORY DATA: Shows hemoglobin 8.5, hematocrit 24.1, WBC 18.9, platelet count is 159. PTT is 74. Blood gases show pH 7.45, pCO2 of 33, pO2 of 79. This is on 50% oxygen on ventilator. Cardiac cath report reviewed. Chest x-ray shows bilateral infiltrates. IMPRESSION AND PLAN: Multiorgan dysfunction with respiratory failure, on ventilator, cardiomyopathy, diffuse coronary artery disease, renal failure on dialysis, pneumonia. Case discussed with nursing staff. Also spoke to bio medical technician. Agree with Dr. Samson with the present management. how he does. I agree with dobutamine and doing amiodarone drip to control the heart rate. Maybe some of the inotrope effect will help us to extubate the patient. For now, keep present vent setting. Cont inue antibiotics. Continue inhaled bronchodilator. Gastric prophylaxis. Anticoagulation. Watch fo r bleed. Follow up ABG, chest x-ray, CBC, CMP in the morning. Critical time spent, more than 35 minutes. Shawn Ruff MD cc: [phone] TT: 09/02/2016 16:13:45 Confirmation # [id number] Dictation # [id number]
[2016-09-02] MEDS: Heparin25000 units/250ml 1/2NS 250 ML IV PRN (17:57)
--- NOTE | 2016-09-02 20:00 | CARD ---
APPROVED REPORT EKG Measurement Heart [id number] <Conclusion> Sinus rhythm with premature atrial complexes Low voltage QRS T wave abnormality, consider anterior ischemia Prolonged QT Abnormal ECG
--- NOTE | 2016-09-02 23:00 | CP.PCM.PN ---
Subjective - Date & Time of Evaluation Date of Evaluation: 09/02/16 Time of Evaluation: 18:05 - Subjective Subjective: Vented s/p cardiac cath Objective - Vital Signs/Intake and Output Vital Signs (last 24 hours): Temp Pulse Resp BP Pulse Ox 98.4 F 87 20 92/53 L 86 L 09/02/16 20:00 09/02/16 22:11 09/02/16 17:18 09/02/16 22:00 09/02/16 22:00 Intake and Output: 09/02/16 09/03/16 18:59 06:59 Intake Total 1575 0 Output Total 1025 Balance 550 0 - Medications Medications: Current Medications Acetaminophen (Tylenol 650 Mg Supp) 650 mg RC Q4H PRN PRN Reason: Fever >100.4 F Arformoterol Tartrate (Brovana) 15 mcg IH [id number] [facility] Last Admin: 09/02/16 20:49 Dose: 15 mcg Artificial Tears (Artificial Tears) 0 ml OU Q6H [facility] Last Admin: 09/02/16 18:08 Dose: 1 drop Aspirin (Ecotrin) 81 mg PO DAILY [facility] Last Admin: 09/02/16 12:13 Dose: 81 mg Budesonide (Pulmicort Respules) 0.5 mg IH [id number] [facility] Last Admin: 09/02/16 20:19 Dose: 0.5 mg Clopidogrel Bisulfate (Plavix) 75 mg NG DAILY [facility] Last Admin: 08/31/16 10:07 Dose: Not Given Furosemide (Lasix) 40 mg IVP Q12 [facility] Last Admin: 09/02/16 12:22 Dose: Not Given Hydralazine HCl (Apresoline) 10 mg PO QID [facility] Last Admin: 09/02/16 21:07 Dose: 10 mg Doxycycline Hyclate 100 mg/ (Sodium Chloride) 100 mls @ 100 mls/hr IVPB Q12 [facility] PRN Reason: Protocol Stop: 09/10/16 10:01 Last Admin: 09/02/16 21:41 Dose: 100 mls/hr Heparin Sodium/Sodium Chloride (Heparin 33606 Units/250ml 1/2 Normal Saline) 250 mls @ 13.904 mls/hr IV .[id number] PRN; Protocol; 18 UNITS/KG/HR PRN Reason: ADJUST RATE PER PROTOCOL Last Admin: 09/02/16 17:57 Dose: 6.952 mls/hr Meropenem 500 mg/ Sodium (Chloride) 100 mls @ 100 mls/hr IVPB Q12 [facility] PRN Reason: Protocol Stop: 09/09/16 10:16 Last Admin: 09/02/16 11:59 Dose: 100 mls/hr Dobutamine HCl/Dextrose (Dobutamine/Dextrose 5% 500mg/250ml) 250 mls @ 5.797 mls/hr IV .Q24H PRN; Protocol; 2.5 MCG/KG/MIN PRN Reason: TITRATE PER PROTOCOL Last Admin: 09/02/16 11:07 Dose: 5.797 mls/hr Metronidazole (Flagyl) 100 mls @ 100 mls/hr IVPB Q8 [facility] PRN Reason: Protocol Last Admin: 09/02/16 21:10 Dose: 100 mls/hr diltiaZEM IVPB 100mg in NS (Cardizem 100mg In Ns) 100 mls @ 5 mls/hr IV .Q20H PRN; Protocol; 5 MG/HR PRN Reason: TITRATE PER MD ORDER Last Titration: 09/02/16 21:41 Dose: 5 mg/hr Insulin Human Lispro (Humalog Low) 0 units SC ACHS [facility] PRN Reason: Protocol Last Admin: 09/02/16 21:52 Dose: Not Given Isosorbide Dinitrate (Isordil) 10 mg PO Q8H [facility] Last Admin: 09/02/16 18:45 Dose: 10 mg Metoprolol Tartrate (Lopressor) 5 mg IVP Q6H [facility] Last Admin: 09/02/16 20:10 Dose: 5 mg Pantoprazole Sodium (Protonix Inj) 40 mg IVP Q12 [facility] Last Admin: 09/02/16 21:12 Dose: 40 mg Tetrahydrozoline HCl/Zinc Sulfate (Visine 0.05% Opht Soln) 0 ml OU BID PRN PRN Reason: Dry eyes Vancomycin HCl (Vancocin 25 Mg/Ml (Oral Use)) 500 mg PO QID [facility] PRN Reason: Protocol Last Admin: 09/02/16 21:40 Dose: 500 mg - Labs Labs: 09/02/16 06:30 09/02/16 06:30 PT 17.7 Seconds (9.9-11.8) H 09/01/16 05:40 INR 1.64 (0.93-1.08) H 09/01/16 05:40 APTT 74.1 Seconds (23.7-30.8) H* 09/02/16 08:14 - Head Exam Head Exam: ATRAUMATIC - Eye Exam Eye Exam: Normal appearance - ENT Exam ENT Exam: Mucous Membranes Dry - Respiratory Exam Respiratory Exam: NORMAL BREATHING PATTERN - Cardiovascular Exam Cardiovascular Exam: +S1, +S2 - GI/Abdominal Exam GI & Abdominal Exam: Normal Bowel Sounds - Extremities Exam Extremities Exam: Pedal Edema Assessment and Plan (1) Anemia Assessment & Plan: GI blood loss; H/H fairly stable cont. to monitor given recent heparin with cardiac cath transfusion support PRN Status: Acute (2) Leukocytosis Assessment & Plan: improving on antibiotics Status: Acute (3) ITP (idiopathic thrombocytopenic purpura) Assessment & Plan: was on Promacta cont. to hold given normal plt count Status: Acute
[2016-09-03] MEDS: Aritificial Tears (15ml) OU SCH ×4 (00:34→17:45)
[2016-09-03] MEDS: Metoprolol 1 mg/ml Inj IVP SCH ×4 (01:31→21:19)
--- NOTE | 2016-09-03 05:11 | PN ---
DATE: 09/01/2016 SUBJECTIVE: This patient was seen and evaluated earlier today. The patient was discussed with Dr. Hernandez. The patient remains on vent. No episodes of bleeding per rectum or vomiting. PHYSICAL EXAMINATION: GENERAL: The patient is lying on the bed, not in acute distress. VITAL SIGNS: Temperature is 98.4, pulse 84, BP 92/53. HEENT: Atraumatic, anicteric. NECK: Supple. HEART: S1, S2, very regular. LUNGS: Bilateral air entry present. ABDOMEN: Soft. No tenderness. EXTREMITIES: Mild edema present no cynosis. LABORATORY DATA: WBC 18.9, hemoglobin 8.5, hematocrit 24.1, platelets 159. Chemistry shows BUN 62, creatinine 3.8. LFTs: Normal. IMPRESSION: An 81-year-old patient with idiopathic thrombocytopenic purpura, coronary artery disease status post PCI, aspirin and Plavix, who was admitted with gastrointestinal bleeding with severe anemia. The patient had multiple transfusions; given 4 unit transfusion. EGD revealed 2 gastric ulcers, 1 was pigmented and large. The patient was restarted on aspirin and Plavix, in view of the coronary artery disease and possible non-ST segment myocardial infarction , and significantly-elevated troponin level. The patient did have cardiac catheterization done today. History of atrial fibrillation. Had a splenic infarct. The patient is not on heparin. Plavix is on hold. The patient is basically on aspirin, also on Cardizem drip. The concern is starting the anticoagulation if needed. There is definitely a higher risk of combining aspirin, Plavix, and heparin; the risk of bleeding is going to be significantly high The patient came in with a hemoglobin of 5.7 and transfusion of 4 units, but on the other hand, if the patient has significant coronary artery disease and DC, he would benefit from antiplatelet therapy. In view of A fib he needs IV heparin. The reasonable thing to do at this point is optimize the treatment for the ulcerations and the patient is on Protonix, and we will continue that. If the patient needs to be started on aspirin, Plavix, and also in combination with heparin, the patient needs to be very closely followed up. If there is any obvious melena or bright red blood per rectum, or significant drop in blood count, then we will have to reconsider modifying the therapy. If a rebleed occurs, the options are going to be very limited for the patient. Only option available would be for clipping. Thank you very much for allowing us to participate in the care of the patient. Eleonora Dillard MD cc: [id number] TT: 09/03/2016 05:10:18 Confirmation # [id number] Dictation # [id number] cesar LEVY
[2016-09-03 05:14] LABS: ARTERIAL BLOOD GAS HCO3 24.4 mmol/L (21-28); ARTERIAL BLOOD GAS O2 CAPACITY 13.9 mL/dl (16-24); ARTERIAL BLOOD GAS O2 CONTENT 12.8 ML/dl (15-23); ARTERIAL BLOOD GAS PH 7.49 (7.35-7.45); ARTERIAL BLOOD HGB O2 SAT 89.3 % (95.0-98.0); CARBOXYHEMOGLOBIN 1.6 % (0.5-1.5); METHEMOGLOBIN 1.1 % (0.0-3.0)
[2016-09-03] MEDS: metroNIDAZOLE IV 500 mg/100 ml 100 ML IVPB SCH (05:17)
[2016-09-03 05:51] LABS: ARTERIAL BLOOD GAS O2 CAPACITY 14.1 mL/dl (16-24); ARTERIAL BLOOD GAS O2 CONTENT 13.9 ML/dl (15-23); ARTERIAL BLOOD GAS PH 7.47 (7.35-7.45); ARTERIAL BLOOD HGB O2 SAT 96.1 % (95.0-98.0); CARBOXYHEMOGLOBIN 1.4 % (0.5-1.5); HHB 1.7 % (0-5); METHEMOGLOBIN 0.8 % (0.0-3.0)
[2016-09-03 06:12] LABS: EOS # 0.4 (0.0-0.7); EOS % 2.2 % (1.5-5.0); GRAN # 14.55 (1.4-6.5); HEMATOCRIT 29.4 % (42.0-52.0); LYMPH # 0.8 (1.2-3.4); LYMPH % 4.7 % (22.0-35.0); MEAN CELL VOLUME 85.5 fL (80.0-105.0); MEAN CORPUSCULAR HEMOGLOBIN 29.7 pg (25.0-35.0); MEAN CORPUSCULAR HGB CONC 34.7 g/dl (31.0-37.0); MONO # 0.8 (0.1-0.6); MONO % 5.1 % (1.0-6.0); PLATELET COUNT 128 [, 10^3/uL] (120.0-450.0); RED CELL DISTRIBUTION WIDTH 16.6 % (11.5-14.5); WHITE BLOOD COUNT 16.5 [, 10^3/ul] (4.5-11.0)
[2016-09-03 06:42] LABS: ALB/GLOB RATIO 0.8 (1.1-1.8); BILIRUBIN,TOTAL 0.3 mg/dL (0.2-1.3); CALCIUM 7.1 mg/dL (8.4-10.5); MAGNESIUM 1.9 mg/dL (1.7-2.2); PHOSPHOROUS 4.4 mg/dL (2.5-4.5); POTASSIUM 3.5 mmol/L (3.6-5.0); TOTAL PROTEIN 4.1 g/dL (5.8-8.3)
[2016-09-03 06:57] LABS: ADD MANUAL DIFF? NO
[2016-09-03] MEDS: Budesonide 0.5 mg/2 ml Inhal Susp UD IH SCH ×2 (07:47→20:29)
[2016-09-03] MEDS: Arformoterol 15 mcg/2 ml Inh Sol IH SCH ×2 (07:47→20:29)
[2016-09-03] MEDS: Insulin Lispro (humaLOG) LOW Coverage SC SCH ×4 (08:16→22:28)
--- NOTE | 2016-09-03 08:26 | RAD ---
PROCEDURE: CHEST RADIOGRAPH, 1 VIEW HISTORY: intubated, f/u COMPARISON: 09/02/2016 FINDINGS: LUNGS: Diffuse bilateral infiltrates. PLEURA: No pneumothorax or pleural fluid seen. CARDIOVASCULAR: Normal. OSSEOUS STRUCTURES: No significant abnormalities. VISUALIZED UPPER ABDOMEN: Normal. OTHER FINDINGS: Tubes and catheters unchanged. IMPRESSION: No significant interval change.
[2016-09-03] MEDS: Vancomycin 25 MG/ML PO SCH ×5 (09:43→22:11)
[2016-09-03] MEDS: Meropenem 500 MG in Sodium Chloride 0.9% 100 ML IVPB SCH ×2 (09:45→22:09)
--- NOTE | 2016-09-03 10:42 | PN ---
DATE: 09/03/2016 The patient seen and examined at bedside. He is comfortable. He is on dobutamine drip 2.5 mcg per kilogram per minute. He is on Cardizem drip 5 mg per hour. He is on heparin drip. He is on pressure support 5/5 with FiO2 50%. He is tolerating that pretty well with respiratory rate 22 and tidal volume up to 460 with RSBI varies between 40 and 44. PHYSICAL EXAMINATION: HEAD AND NECK: Atraumatic. LUNGS: Clear to auscultation bilaterally. HEART: Irregular rate and rhythm. S1, S2 distant. ABDOMEN: Soft, nontender, nondistended. MUSCULOSKELETAL: No C/C/E. NEUROLOGIC: The patient moves all extremities spontaneously. SKIN: Moist. PSYCHIATRIC: The patient is alert and following commands. LABORATORIES: WBC 16.5, down from 18.9, hemoglobin 10.2, platelet count 128. Sodium 137, potassium 3.5, chloride 104, carbon dioxide 26, BUN 46, creatinine 3 , glucose 119. Chest x-ray today still shows pulmonary edema, fairly unchanged. The patient had hemodialysis yesterday and dialysis removed 500 mL yesterday. MEDICATIONS: Hydralazine, Brovana, Cardizem drip, dobutamine, doxycycline, aspirin, heparin drip, Flagyl, Isordil, meropenem, Plavix, Protonix, budesonide , vancomycin p.o. ASSESSMENT AND PLAN: This is an 81-year-old gentleman with hypoxemic respiratory failure secondary to cardiogenic pulmonary edema. At present time, he is receiving inotropic support with dobutamine. His cardiac catheterization did not reveal any new lesions despite extensive and diffuse arthrosclerotic disease. The patient is receiving hydralazine and isosorbide for afterload reduction. We will continue with hemodialysis every day to maintain slightly negative fluid balance to optimize his respiratory status. If patient tolerates pressure support trial well, we will proceed with dialysis today and then we will attempt to extubate him to BiPAP. The patient tolerates enteral nutrition well. We will continue with head of bed elevated more than 35 degrees and gastrointestinal prophylaxis. The patient is on therapeutic anticoagulation and dual antiplatelet therapy as he has stents. No signs of bleeding. His hemoglobin is stable and more than 10. Addendum: 3L removed with HD. Patient is extubated to BPAP. Doing well on 27/10 fi02 40. Will continue monitor ccm time 40 min Joby Hernandez MD cc: [id number] TT: 09/03/2016 10:41:18 Confirmation # [id number] Dictation # [id number] en MTDD
--- NOTE | 2016-09-03 12:29 | CP.PCM.PN ---
Subjective - Date & Time of Evaluation Date of Evaluation: 09/03/16 Time of Evaluation: 10:00 - Subjective Subjective: Patient continues to be on the ventilator, sedated, poorly responsive. Continues to be on dialysis. Objective - Vital Signs/Intake and Output Vital Signs (last 24 hours): Temp Pulse Resp BP Pulse Ox 98.9 F 88 20 92/49 L 99 09/03/16 11:51 09/03/16 11:00 09/02/16 17:18 09/03/16 11:00 09/03/16 11:00 Intake and Output: 09/03/16 09/03/16 06:59 18:59 Intake Total 796 Output Total 175 Balance 621 - Medications Medications: Current Medications Acetaminophen (Tylenol 650 Mg Supp) 650 mg RC Q4H PRN PRN Reason: Fever >100.4 F Arformoterol Tartrate (Brovana) 15 mcg IH [id number] [facility] Last Admin: 09/03/16 07:47 Dose: 15 mcg Artificial Tears (Artificial Tears) 0 ml OU Q6H [facility] Last Admin: 09/03/16 06:02 Dose: 1 drop Aspirin (Ecotrin) 81 mg PO DAILY [facility] Last Admin: 09/03/16 09:43 Dose: 81 mg Budesonide (Pulmicort Respules) 0.5 mg IH [id number] [facility] Last Admin: 09/03/16 07:47 Dose: 0.5 mg Clopidogrel Bisulfate (Plavix) 75 mg NG DAILY [facility] Last Admin: 08/31/16 10:07 Dose: Not Given Furosemide (Lasix) 40 mg IVP Q12 [facility] Last Admin: 09/02/16 12:22 Dose: Not Given Hydralazine HCl (Apresoline) 10 mg PO QID [facility] Last Admin: 09/03/16 09:41 Dose: 10 mg Doxycycline Hyclate 100 mg/ (Sodium Chloride) 100 mls @ 100 mls/hr IVPB Q12 [facility] PRN Reason: Protocol Stop: 09/10/16 10:01 Last Admin: 09/03/16 09:45 Dose: 100 mls/hr Heparin Sodium/Sodium Chloride (Heparin 17631 Units/250ml 1/2 Normal Saline) 250 mls @ 13.904 mls/hr IV .[id number] PRN; Protocol; 18 UNITS/KG/HR PRN Reason: ADJUST RATE PER PROTOCOL Last Titration: 09/03/16 09:53 Dose: 8 units/kg/hr Meropenem 500 mg/ Sodium (Chloride) 100 mls @ 100 mls/hr IVPB Q12 [facility] PRN Reason: Protocol Stop: 09/09/16 10:16 Last Admin: 09/03/16 09:45 Dose: 100 mls/hr Dobutamine HCl/Dextrose (Dobutamine/Dextrose 5% 500mg/250ml) 250 mls @ 5.797 mls/hr IV .Q24H PRN; Protocol; 2.5 MCG/KG/MIN PRN Reason: TITRATE PER PROTOCOL Last Admin: 09/02/16 11:07 Dose: 5.797 mls/hr diltiaZEM IVPB 100mg in NS (Cardizem 100mg In Ns) 100 mls @ 5 mls/hr IV .Q20H PRN; Protocol; 5 MG/HR PRN Reason: TITRATE PER MD ORDER Last Titration: 09/02/16 21:41 Dose: 5 mg/hr Insulin Human Lispro (Humalog Low) 0 units SC ACHS [facility] PRN Reason: Protocol Last Admin: 09/03/16 11:43 Dose: 2 units Isosorbide Dinitrate (Isordil) 10 mg PO Q8H [facility] Last Admin: 09/03/16 09:46 Dose: 10 mg Metoprolol Tartrate (Lopressor) 5 mg IVP Q6H [facility] Last Admin: 09/03/16 08:17 Dose: 5 mg Pantoprazole Sodium (Protonix Inj) 40 mg IVP Q12 [facility] Last Admin: 09/03/16 09:41 Dose: 40 mg Tetrahydrozoline HCl/Zinc Sulfate (Visine 0.05% Opht Soln) 0 ml OU BID PRN PRN Reason: Dry eyes Vancomycin HCl (Vancocin 25 Mg/Ml (Oral Use)) 500 mg PO QID [facility] PRN Reason: Protocol Last Admin: 09/03/16 09:43 Dose: 500 mg - Labs Labs: 09/03/16 05:45 09/03/16 05:45 PT 17.7 Seconds (9.9-11.8) H 09/01/16 05:40 INR 1.64 (0.93-1.08) H 09/01/16 05:40 APTT 45.5 Seconds (23.7-30.8) H 09/03/16 08:40 - Constitutional Appears: Other (Intubated and on the ventilator) - Head Exam Head Exam: NORMAL INSPECTION - ENT Exam ENT Exam: Mucous Membranes Moist - Neck Exam Neck Exam: absent: Lymphadenopathy, Meningismus Additional comments: bilateral central venous catheters in place - Respiratory Exam Respiratory Exam: Decreased Breath Sounds, Rales (scattered) - Cardiovascular Exam Cardiovascular Exam: Tachycardia, +S1, +S2 - GI/Abdominal Exam GI & Abdominal Exam: Soft. absent: Tenderness Assessment and Plan - Assessment and Plan (Free Text) Plan: Assessment Severe sepsis with hypoxic with again ventilator-dependent respiratory failure probably secondary to now hospital-acquired pneumonia R/O aspiration pneumonitis in a patient with acute on chronic renal failure and lactic acidosis as well as possible non-ST elevation myocardial infarction with acute CHF and worsening cardiac function; also with watery stools suspicious for C. diff. associated diarrhea in a patient with marked leukocytosis S/P cardiac cath with note of CAD with triple vessel disease Persistently elevated leukocytosis R/O new onset sepsis source to be determined Chronic renal failure now on hemodialysis history of cerebrovascular accident S/O left carotid endarterectomy history of immune-thrombocytopenic purpura BPH CAD Plan continue Merrem (has had 6 days of Cefepime, day 2 of Merrem); continue Doxycycline and gave a dose of IV Vancomycin and started PO Vancomycin day 2; blood, sputum, urine cx from yesterday negative so far; follow up stool for Cdiff reviewed CT Abdomen and pelvis which did not show acute inflammation or fluid collection but did show new splenic infarcts Babesia tests are negative; Mycoplasma IgM negative; urine Legionella Ag is negative Overall prognosis is poor
--- NOTE | 2016-09-03 12:42 | PN ---
DATE: 09/03/2016 SUBJECTIVE: The patient is currently seen in ICU bed 1. He is currently receiving an extra dialysis . As per my discussion with the ICU housestaff and the pole tester, Dr. eHrnandez, the plan is to try and ultrafiltrate him 2-3 kilo, blood pressure permitting with dialysis today with the hope of extub ation later this afternoon. The patient is status post cardiac catheterization yesterday, which show ed multivessel coronary artery disease and hypokinetic left ventricle with an ejection fraction of 30 -35%. The patient continues to have diarrhea. The patient had been started on Dobutrex for inotropi c support. He is also on IV Cardizem for atrial fibrillation. MEDICATIONS: Medication list reviewed. The patient is currently on hydralazine, artificial tears, B rovana, IV Cardizem, IV Dobutrex, doxycycline, Ecotrin, Flagyl, heparin, insulin, Isordil. Lasix is on hold. Metoprolol, meropenem. Plavix is on hold. Protonix, Pulmicort, Tylenol p.r.n., oral vanco mycin, and Visine eyedrops. OBJECTIVE: INTAKE AND OUTPUT: Intake 2371, output 1200. 500 mL were removed with dialysis yesterday, post-card iac catheterization. VITAL SIGNS: Blood pressure is 92/49, heart rate 88, temperature 98.9. Respiratory rate is 20. Pul se ox is 99% with an FiO2 of 50%. HEENT: Eyes are closed. The patient is intubated. NECK: No neck-vein distention. CHEST: Clear to auscultation and percussion with decreased breath sounds at the bases. Occasional s cattered rhonchi. No rales audible. CARDIOVASCULAR: Irregular S1, S2. No S3, no S4. MR/TR. No rub. ABDOMEN: Bowel sounds normal. Soft. No rebound, no guarding, no masses. EXTREMITIES: Show diminished lower extremity pulses with no cyanosis, clubbing, or edema. LABORATORY DATA AND IMAGING: Laboratory work today, CBC: White blood cell count 16.5 with a hemoglo bin of 10.2, improved from yesterday. Platelet count is 128,000. Chemistries today show sodium of 1 37, potassium 3.5, BUN 46 with a creatinine of 3.0. Glucose 190. Calcium is 7.1 with an albumin of 1.8, corrects to normal. Phosphorus is 4.4, improved. Magnesium is 1.9. Glucose is 190. MICROBIOLOGY: All cultures are negative. Stool for C. diff is negative. Blood cultures -repeat cul tures are negative, as were the original cultures, which were negative at 5 days. Chest x-ray from the morning shows no significant interval change. Diffuse bilateral infiltrates fel t to be secondary to fluid. ASSESSMENT: 1. Acute renal failure superimposed on chronic kidney disease stage IV. The patient appears to be d ialysis-dependent at this point in time. He is status post cardiac catheterization yesterday, which showed multivessel coronary artery disease. The patient will be managed medically. The patient has a hypokinetic LV and had been started on Dobutrex for inotropic support. The reason for doing the ex tra dialysis today was to try and ultrafiltrate the patient with the hope of being able to try and ex tubate him later today. 2. History of non-insulin dependent diabetes mellitus. The patient continues on sliding scale insul in. Glucose control is acceptable. 3. History of arteriosclerotic heart disease status post non-ST myocardial infarction, cardiomyopath y, ejection fraction 30-35%, mitral regurgitation, tricuspid regurgitation with multivessel coronary artery disease. 4. History of sepsis, hypotension, possible aspiration pneumonia. The patient continues on antibiot ic therapy. 5. History of diarrhea. The patient continues on empiric vancomycin and Flagyl therapy. Stool for Clostridium difficile had been negative. 6. History of atrial fibrillation, rate controlled. The patient had been on amiodarone. He is pres ently on beta-dary therapy along with IV Cardizem. 7. History of secondary hyperparathyroidism. Phosphorus level is improved. Corrected calcium level is normal. The patient is continuing nutrition with Nepro. 8. History of anemia secondary to chronic kidney disease. Hemoglobin is improved and is up to 10.2, up from 8.5. The patient has received a total of 6 units of packed red blood cells in total. 9. History of peripheral vascular disease, status post left-sided carotid endarterectomy, currently stable. 10. History of respiratory failure in part secondary to volume overload and congestive heart failure . Hope is to try and extubate the patient later today postdialysis. PLAN: 1. Discuss with Dr. Hernandez and CCU housestaff in detail. We have decided to give the patient an e xtra dialysis treatment today with the hope of being able to remove fluid, increase ultrafiltration w ith the hope of extubation later this afternoon. 2. I agree with decision to improve cardiac output with inotropic agents. 3. We will continue to support the patient with dialysis on a frequent basis, perhaps even daily unt il the time of extubation. 4. Continue feedings with Nepro. 5. Close renal followup in the CCU. Greater than 35 minutes were spent in the care of this critically-ill patient. Maynor Malave MD cc: [id number] TT: 09/03/2016 12:42:07 Confirmation # [id number] Dictation # [id number] jn
--- NOTE | 2016-09-03 18:31 | PN ---
DATE: 09/03/2016 REFERRING PHYSICIAN: Dr. Myers. I am also covering for Dr. Myers internal medicine. SUBJECTIVE: The patient is intubated and sedated on dialysis, tolerating it well. Not much ET tube secretion. No hemoptysis, no emesis, no hematuria and no diarrhea reported. Decreased leg swelling. OBJECTIVE: GENERAL: On ventilator and sedated. VITAL SIGNS: Temperature is 98, heart rate is 80, respiratory rate is 22, blood pressure 105/61, pul se ox 95% on 40% oxygen. HEENT: Moist mucous membrane. ET tube not much secretion. NECK: Supple, no JVD. LUNGS: Have scattered rhonchi with crackles. Overall better airflow. HEART: S1, S2 irregular. ABDOMEN: Soft, nontender. No organomegaly. EXTREMITIES: There is not much edema. NEUROLOGIC: Sedated and intubated. MEDICATIONS: He is on hydralazine 10 mg q.i.d., artificial tears to both eyes, Brovana 15 mcg q. 12 hours, also on IV diltiazem, IV dobutamine, doxycycline 100 mg twice a day, Ecotrin 81 mg daily, hepa rin weight based protocol, isosorbide 10 mg q. 8 hours, Lasix 40 mg q. 12 hours, which is on hold, me toprolol tartrate 5 mg q. 6 hours, meropenem 500 mg q. 12 hours, Plavix 75 mg daily, Protonix 40 mg q . 12 hours, Pulmicort inhaled twice a day, Tylenol on a p.r.n. basis, vancomycin 500 mg q.i.d. LABORATORY DATA: Shows hemoglobin 10.2, hematocrit 29.4, WBC 16.5, platelet is 128, PTT is 43. Bloo d gas this morning shows pH 7.47, pCO2 37, pO2 /87, this is with 50% oxygen on ventilator. Sodium 13 7, potassium 3.5, chloride 104, bicarbonate 26, BUN 46, creatinine 3.0, glucose 190, calcium is 7.1, phosphorus 4.1, total bilirubin 0.3, AST 28, ALT 41, alkaline phosphatase is 77. Albumin is 1.8. ___ __ Chest x-ray done early this morning shows no significant changes with bilateral diffuse pulmonary infiltrates. IMPRESSION AND PLAN: Multiorgan dysfunction with respiratory failure on ventilator, bilateral diffus e pulmonary infiltrates, combination of pneumonia and pulmonary edema, has cardiomyopathy, coronary a rtery disease, history of coronary stent, atrial fibrillation, renal failure, presently placed on joe lysis. Clinically seems like he is improving a little bit. I will continue to keep him on ventilato r for now. We will suggest to continue with daily dialysis. Continue antibiotics, bronchodilators. Follow up ABG, chest x-ray, CBC, CMP in the morning. Will follow with you. Critical care time spent, more than 35 minutes. Shawn Ruff MD cc: [id number] TT: 09/03/2016 18:31:27 Confirmation # [id number] Dictation # [id number] [email or web address]
[2016-09-03] MEDS: DOBUTamine 500mg/250ml D5W 250 ML IV PRN (23:55)
[2016-09-04] MEDS: Aritificial Tears (15ml) OU SCH ×4 (00:15→17:42)
--- NOTE | 2016-09-04 01:13 | PN ---
DATE: 09/03/2016 SUBJECTIVE: This patient was seen and evaluated earlier, discussed with the nursing staff. The chato ent's family was at bedside. The patient was then extubated. PHYSICAL EXAMINATION: VITAL SIGNS: Temperature is 97.6, blood pressure 121/60, respirations 19, and O2 saturations 93%. HEENT: Atraumatic, anicteric. Facial droop present. HEART: S1, S2 heard. LUNGS: Bilateral normal air entry present, a few scattered rhonchi present. ABDOMEN: Soft. There is no mass, no tenderness. EXTREMITIES: Mild edema present. No cyanosis. NEUROLOGIC: On BiPAP machine noncommunicative. LABORATORY DATA: WBC 16.5, hemoglobin 10.2, hematocrit 29.4, platelets 128. Chemistry: Shows BUN 4 6, creatinine 3.0. LFTs are essentially unremarkable. IMPRESSION: This 81-year-old patient admitted with gastrointestinal bleeding, status post transfusio n. Endoscopy revealed multiple gastric ulcers. The patient also was found to have an acute myocardi al infarction. significantly elevated troponin levels. Status post cardiac cath done, global extensive diffuse atherosclerotic disease with no new lesions. The patient did have a stent placemen t in the past, was on aspirin. History of atrial fibrillation and a splenic infarct. MEDICATION: The patient is presently on Plavix, which has been on hold. The patient is on aspirin a nd heparin. The patient is also on Protonix 40 mg q. 12 hours. RECOMMEND: 1. Close followup of the hemoglobin and hematocrit, as the patient has been on aspirin and Plavix in the setting of the ulcers and GI bleeding in the past. Plavix has been on hold now. 2. Sepsis. The patient has been on cefepime and medication. The patient has been on Merrem and als o on doxycycline. The patient is also on p.o. vancomycin. 3. The patient had a splenic infarct, atrial fibrillation. The patient is on Heparin. 4. Coronary artery disease status post myocardial infarction. Recent catheterization did not show a ny new lesions. History of global atherosclerotic changes. On aspirin. Plavix has been on hold. 5. Rule out sepsis. Continue the antibiotics as per infectious disease. 6. History of respiratory failure, status post extubation, now on BiPAP. 7. History of idiopathic thrombocytopenia purpura. Patient was on Promacta before, which has not be en started now. Platelet count remains . The patient is being followed by Dr. Hernandez. Thank you very much for allowing us to participate in the care of the patient. We will continue to c losely follow up his care and suggest further management based on the clinical course. Eleonora Dillard MD cc: [id number] TT: 09/04/2016 01:12:33 Confirmation # [id number] Dictation # [id number] mn
[2016-09-04] MEDS: Metoprolol 1 mg/ml Inj IVP SCH ×4 (02:30→20:00)
[2016-09-04 05:23] LABS: ARTERIAL BLOOD GAS HCO3 25.9 mmol/L (21-28); ARTERIAL BLOOD GAS O2 CAPACITY 14.2 mL/dl (16-24); ARTERIAL BLOOD GAS O2 CONTENT 13.1 ML/dl (15-23); ARTERIAL BLOOD GAS PH 7.49 (7.35-7.45); ARTERIAL BLOOD HGB O2 SAT 89.3 % (95.0-98.0); HHB 7.6 % (0-5); METHEMOGLOBIN 1.2 % (0.0-3.0)
[2016-09-04 07:09] LABS: ADD MANUAL DIFF? NO
[2016-09-04 07:15] LABS: BASO # 0.02 [, K/mm3] (0.0-2.0); BASO % 0.1 % (0.0-3.0); EOS # 0.4 (0.0-0.7); EOS % 1.8 % (1.5-5.0); GRAN # 17.25 (1.4-6.5); GRAN % 88.4 % (50.0-68.0); HEMATOCRIT 31.1 % (42.0-52.0); LYMPH # 0.9 (1.2-3.4); LYMPH % 4.5 % (22.0-35.0); MEAN CELL VOLUME 87.4 fL (80.0-105.0); MEAN CORPUSCULAR HEMOGLOBIN 30.3 pg (25.0-35.0); MEAN CORPUSCULAR HGB CONC 34.7 g/dl (31.0-37.0); MONO % 5.2 % (1.0-6.0); PLATELET COUNT 126 [, 10^3/uL] (120.0-450.0); RED CELL DISTRIBUTION WIDTH 16.8 % (11.5-14.5); WHITE BLOOD COUNT 19.5 [, 10^3/ul] (4.5-11.0)
[2016-09-04 07:25] LABS: ALB/GLOB RATIO 0.8 (1.1-1.8); BILIRUBIN,TOTAL 0.4 mg/dL (0.2-1.3); CALCIUM 7.1 mg/dL (8.4-10.5); MAGNESIUM 1.8 mg/dL (1.7-2.2); PHOSPHOROUS 3.9 mg/dL (2.5-4.5); POTASSIUM 3.5 mmol/L (3.6-5.0); TOTAL PROTEIN 4.6 g/dL (5.8-8.3)
[2016-09-04] MEDS: Arformoterol 15 mcg/2 ml Inh Sol IH SCH ×2 (07:58→19:37)
[2016-09-04] MEDS: Budesonide 0.5 mg/2 ml Inhal Susp UD IH SCH ×2 (07:58→19:37)
[2016-09-04] MEDS: Insulin Lispro (humaLOG) LOW Coverage SC SCH ×4 (08:02→21:36)
--- NOTE | 2016-09-04 08:19 | PN ---
DATE: 09/03/2016 CARDIOLOGY FOLLOWUP PHYSICAL EXAMINATION: GENERAL: The patient remains on a ventilator. The arterial blood gases are improving. VITAL SIGNS: Blood pressure is 105/51. The heart rate is in the 70s, atrial fibrillation. NECK: Negative JVD. LUNGS: No rales noted. HEART: Reveals S1, S2. EXTREMITIES: Without edema. LABORATORIES: Hemoglobin is 10.2, white count is 16,000. Chemistries: BUN and creatinine are 46 an d 3.0. IMPRESSION: 1. Respiratory failure. 2. Recurrent congestive heart failure. 3. Marked triple-vessel disease and diffuse vasculopathy. 4. Ischemic dilated cardiomyopathy. 5. End-stage renal disease. Given these findings, I agree with the plan to have the patient undergo dialysis today with an aggres sive approach to extubating the patient today. Bashir Samson MD cc: [id number] TT: 09/03/2016 10:45:44 Confirmation # [id number] Dictation # [id number] alberto
--- NOTE | 2016-09-04 08:55 | RAD ---
PROCEDURE: CHEST RADIOGRAPH, 1 VIEW HISTORY: intubated, f/u COMPARISON: 09/03/2016 FINDINGS: LUNGS: Significant improvement in pulmonary edema PLEURA: No pneumothorax or pleural fluid seen. CARDIOVASCULAR: Normal. OSSEOUS STRUCTURES: No significant abnormalities. VISUALIZED UPPER ABDOMEN: Normal. OTHER FINDINGS: Central lines unchanged. Endotracheal and nasogastric tube removed IMPRESSION: Significant improvement in pulmonary edema
--- NOTE | 2016-09-04 09:15 | PN ---
DATE: 09/04/2016 The patient is seen and examined at bedside. He is following commands. He appears to be comfortable. He is still on BiPAP 16/ with FiO2 of 50%. His oxygen saturation is 93%. His chest x-ray looks better today. In terms of bilateral infiltrates, his respiratory rate is 20. His tidal volume is 690. He does not appear to be in respiratory distress. He had hemodialysis yesterday with 3 liters removed. PHYSICAL EXAMINATION: VITAL SIGNS: Blood pressure 111/44, heart rate 95, oxygen saturation 93%. HEAD AND NECK: Atraumatic. LUNGS: Decreased breath sounds bilaterally. HEART: Regular rate and rhythm. S1, S2 normal. ABDOMEN: Soft, nontender, nondistended. MUSCULOSKELETAL: Trace bilateral pedal and ankle edema. NEUROLOGIC: The patient moves all extremities spontaneously. SKIN: Moist. PSYCHIATRIC: The patient is following commands. LABORATORY DATA: Sodium 139, potassium 3.5 (the patient is on dialysis), chloride 104, BUN 38, creatinine 2.8. Glucose 123. WBC 19.5 up from 16.5 ( central line will be removed and then reassess. If white cell count continues to rise, then we will remove the dialysis catheter and put another one). Hemoglobin 10.8, stable, platelet count 126. PTT 50.6. MEDICATIONS: Hydralazine 10 mg p.o. q.i.d., Brovana, Cardizem drip, dobutamine , doxycycline, aspirin, heparin drip, isosorbide dinitrate, metoprolol 5 mg IV q. 6, meropenem, Plavix, Protonix, budesonide inhaler, vancomycin p.o. ASSESSMENT AND PLAN: This is an 81-year-old gentleman with hypoxemic respiratory failure, which started to show signs of improvement. The patient was extubated yesterday to bilevel positive airway pressure, and he continued to do well on bilevel positive airway pressure. His chest x-ray looks a little bit better. His mental status is a little bit clearer, and he is following commands and moving all extremities spontaneously and on command. He will continue to have daily dialysis with aggressive fluid removal as much as hemodynamics tolerates. We will continue with inotropic support with dobutamine and afterload reduction with hydralazine and isosorbide dinitrate. Cardiology consultation is appreciated. Rising leukocytosis, even though the patient is hemodynamically unchanged, is concerning. We will remove the central line and try either a peripheral IV or peripherally-inserted central catheter line. However if leukocytosis continues to rise, we will change the dialysis catheter as well. We will continue to target euvolemia, euglycemia, normothermia, and oxygen saturation more than 90%. We will continue with deep venous thrombosis and gastrointestinal prophylaxis. We will continue with head of bed elevated more than 35 degrees. We will continue to taper his FiO2 as much as tolerated. We will continue with aspirin p.r. Addendum: I had a long discussion with patient's family. They asked to proceed with DNR/DNI. Their wishes will be honored. CVL removed, PICC line inserted ccm time 40 min Joby Hernandez MD cc: [id number] TT: 09/04/2016 09:14:48 Confirmation # [id number] Dictation # [id number] jn MTDD
--- NOTE | 2016-09-04 09:46 | PN ---
DATE: 09/04/2016 The patient is extubated. He is on BiPAP. PHYSICAL EXAMINATION: VITAL SIGNS: Blood pressure is 137/65, the heart rate is in the 80s, pulsoximetry varies from 91%-93 %. NECK: Negative JVD. LUNGS: No rales noted. HEART: Revealed S1, S2. EXTREMITIES: Without edema. LABORATORIES: Hemoglobin is 10.8, white count is still at 19,000. BUN and creatinine are 38 and 2.8 with a potassium of 3.5, glucose is 123. IMPRESSION: 1. Respiratory failure. 2. Pulmonary edema, better with intravenous inotropic therapy. 3. Diabetes mellitus. 4. End-stage renal disease. 5. Ischemic dilated cardiomyopathy. 6. Diffuse atherosclerosis. Given these findings, we will discontinue his IV Cardizem today. We will continue the heparin and IV inotropic therapy. Bashir Samson MD cc: [id number] TT: 09/04/2016 09:45:34 Confirmation # [id number] Dictation # [id number]
--- NOTE | 2016-09-04 11:38 | CP.CCUPN ---
Addendum entered and electronically signed by Izabela Luis DO 09/04/16 17:12 : Had family meeting with POA and family with Dr. Hernandez and Mary, social services director. Family still need time deciding comfort care vs intubation LTAC referral will be delayed till tomorrow Addendum entered and electronically signed by Izabela Luis DO 09/04/16 15:24 : Pt s/p PICC placement on R medial arm. RIJ central line removed. - pt in flat position because reverse trendalenberg not tolerated - sutures removed in sterile fashion. - central line removed on exhalation. Blue tip confirmed, no nicking. - pressure applied x 5-10 minutes. Occlusive pressure dressing applied. Original Note: <Izabela Luis - Last Filed: 09/04/16 12:42> CCU Subjective - Physician Review Subjective (Free Text): 08/28/16 09:19 Intubated yesterday for abdominal agonal breath. 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, new compared echo 1 year ago 08/30/16 13:53 No Melena overnight CXR - decreased pulm edema with lasix q12 plus 100 IV x 1 HR 60s, BP 100s extubated, on NRB 12L, HR 62, POx 97, BP in high 90s 08/31/16 07:47 Overnight, Got deniz lasix. In addition lopressor x 1 for Sinus tachy at 130s. Bipap at night. This am at A-fib RVR 140s - given bicarb, amiodarone 150 x 1. On amiodarone gtt. Breathing with crackles, pulm suction out pink froths, given 20 Lasix x 1 U/O 200 overnight - oliguric markedly decrease u/o 12/7/35% sat 95 08/31/16 12:47 On high flow, 50L, 40% Finished 2nd bottle of oral contrast for CT abd/pelvis Will go to radiology at 2:30 [facility] placement afterwards HD to be followed. Notified Dr. Alcazar WBC 28, still high today. 1 BM overnight and 1 BM this afternoon, dark bilous. Sent for C diff testing again. 09/01/16 09:26 1 black BM overnight, large quantity, black, watery. Hold heparin at 3AM, restart at 7AM T 99.9 AM. procal sent Not on bipap overnight. On HFNC 40%, 50L HR 80s. suction out white floths, no pink. Add 1 u pRBC during HD today 1 non-sustained a-fib at noon, pt already on heparin. HR returned to 80s. 09/04/16 11:34 occassional A. flutter, 4:1, non-sustained 93L Bipap 1 bilous green mucoid stool overnight 09/04/16 12:42 Hold heparin for PICC PM Bipap 16//12/60%. RR 26. POx 95% If POx maintained, high flow NS. CCU Objective - Vital Signs / Intake & Output Vital Signs (Last 4 hours): Vital Signs Temp Pulse Resp BP Pulse Ox 09/04/16 11:00 125 H 29 H 100/51 L 86 L 09/04/16 10:52 114 H 31 H 86 L 09/04/16 10:45 121 H 32 H 96/53 L 88 L 09/04/16 10:36 102 H 28 H 89/42 L 85 L 09/04/16 10:30 119 H 27 H 89/36 L 87 L 09/04/16 10:15 98 H 26 H 94/53 L 92 L 09/04/16 10:00 86 19 113/53 L 90 L 09/04/16 09:45 88 20 122/59 L 91 L 09/04/16 09:30 84 23 118/62 90 L 09/04/16 09:15 82 23 117/61 91 L 09/04/16 09:09 86 22 107/54 L 90 L 09/04/16 09:05 83 22 91 L 09/04/16 09:00 83 22 93 L 09/04/16 08:50 80 137/65 94 L 09/04/16 08:47 87 114/52 L 93 L 09/04/16 08:27 88 09/04/16 08:23 91 H 22 95 09/04/16 08:07 104 H 111/44 L 09/04/16 08:00 94 H 25 H 111/44 L 88 L 09/04/16 07:59 99 H 09/04/16 07:42 99.2 F 09/04/16 07:40 96 H 86 L 09/04/16 07:35 88 Intake and Output (Last 8hrs): Intake & Output 09/03/16 09/04/16 09/04/16 22:59 06:59 14:59 Intake Total 586 488 Output Total 3100 150 Balance -2514 338 Weight 164 lb 164 lb Intake: IV 371 488 Right Internal Jugular 371 488 Oral 0 Tube Feeding 125 Other 90 Output: Urine 100 100 Urethral (Rodrigez) 100 100 Stool 0 50 Other 3000 Other: Voiding Method Indwelling Catheter Indwelling Catheter - Physical Exam Head: Positive for: Atraumatic, Normocephalic Pupils: Positive for: PERRL Extroacular Muscles: Positive for: EOMI Conjunctiva: Positive for: Other (conjunctival pallor) Mouth: Positive for: Dry Neck: Positive for: MIDLINE TENDERNESS (RIJ in place, shiley in [facility]). Negative for: JVD Respiratory/Chest: Positive for: Clear to Auscultation, Rales. Negative for: Accessory Muscle Use, Retracting Cardiovascular: Positive for: Normal S1, S2, Irregular Rhythm, Tachycardic ( occasional, during HD, non-sustained). Negative for: Murmurs Abdomen: Positive for: Normal Bowel Sounds. Negative for: Tenderness, Distention, Peritoneal Signs Rectal: Positive for: Hemorrhoids (external). Negative for: Normal Rectal Tone (dilated rectal tone, soft prostate), Fissures Upper Extremity: Positive for: Edema. Negative for: Erythema Lower Extremity: Positive for: Edema (2+ Pitting edema of left LE, with long healed scars; R femoral sheath removed, dressing d/c/i) Neurological: Negative for: Speech Normal (per son, slurred) Skin: Positive for: Warm, Dry, Normal Color, Abrasion (on left UE). Negative for: Rashes Psychiatric: Positive for: Other Other physical findings (Free Text): lethargic - Medications Active Medications: Active Medications Generic Name Dose Route Start Last Admin Trade Name Freq PRN Reason Stop Dose Admin Acetaminophen 650 mg 08/26/16 16:19 Tylenol 650 Mg Supp RC Q4H PRN Fever >100.4 F Arformoterol Tartrate 15 mcg 08/26/16 20:00 09/04/16 07:58 Brovana IH 15 mcg [id number] DENIZ Administration Artificial Tears 0 ml 09/01/16 12:30 09/04/16 05:51 Artificial Tears OU 1 drop Q6H DENIZ Administration Aspirin 150 mg 09/04/16 10:00 Aspirin Supp RC DAILY DENIZ Budesonide 0.5 mg 08/26/16 20:00 09/04/16 07:58 Pulmicort Respules IH 0.5 mg [id number] DENIZ Administration Furosemide 40 mg 08/28/16 22:00 09/02/16 12:22 Lasix IVP Not Given Q12 DENIZ Hydralazine HCl 10 mg 09/02/16 18:00 09/04/16 10:43 Apresoline PO Not Given QID DENIZ Doxycycline Hyclate 100 mg/ 100 mls @ 100 mls/hr 08/27/16 10:00 09/03/16 22:12 Sodium Chloride IVPB 09/10/16 10:01 100 mls/hr Q12 DENIZ Administration Protocol Heparin Sodium/Sodium Chloride 250 mls @ 13.904 mls/hr 09/01/16 07:19 09/04/16 00:52 Heparin 34410 Units/250ml 1/2 Normal Saline IV 12 units/kg/hr .[id number] PRN Titration ADJUST RATE PER PROTOCOL Protocol 18 UNITS/KG/HR Meropenem 500 mg/ Sodium 100 mls @ 100 mls/hr 09/02/16 10:15 09/03/16 22:09 Chloride IVPB 09/09/16 10:16 100 mls/hr Q12 DENIZ Administration Protocol Dobutamine HCl/Dextrose 250 mls @ 5.797 mls/hr 09/02/16 10:31 09/03/16 23:55 Dobutamine/Dextrose 5% 500mg/250ml IV 5.797 mls/hr .Q24H PRN Administration TITRATE PER PROTOCOL Protocol 2.5 MCG/KG/MIN Insulin Human Lispro 0 units 08/26/16 22:00 09/04/16 08:02 Humalog Low SC Not Given [facility] Protocol Isosorbide Dinitrate 10 mg 09/02/16 18:30 09/04/16 10:43 Isordil PO Not Given Q8H EDNIZ Metoprolol Tartrate 5 mg 08/29/16 14:00 09/04/16 08:07 Lopressor IVP 5 mg Q6H DENIZ Administration Pantoprazole Sodium 40 mg 08/26/16 22:00 09/03/16 22:10 Protonix Inj IVP 40 mg Q12 DENIZ Administration Tetrahydrozoline HCl/Zinc Sulfate 0 ml 08/30/16 21:02 Visine 0.05% Opht Soln OU BID PRN Dry eyes - Patient Studies Lab Studies: Microbiology Studies 09/01/16 16:40 Blood Culture - Preliminary Blood-Venous NO GROWTH AFTER 48 HOURS 09/01/16 16:40 Gram Stain - Final Trachasp Sputum Culture - Final Yeast Species 09/01/16 11:48 Blood Culture - Preliminary Blood-Venous NO GROWTH AFTER 48 HOURS 09/01/16 13:30 C. difficile Antigen & Toxin A,B (M - Final Stool Lab Studies 09/04/16 09/04/16 09/04/16 Range/Units 10:37 07:15 06:45 WBC (4.5-11.0) 10^3/ul RBC (3.5-6.1) 10^6/uL Hgb (14.0-18.0) gm/dL Hct (42.0-52.0) % MCV (80.0-105.0) fL MCH (25.0-35.0) pg MCHC (31.0-37.0) g/dl RDW (11.5-14.5) % Plt Count (120.0-450.0) 10^3/uL Gran % (50.0-68.0) % Lymph % (Auto) (22.0-35.0) % [place] % (Auto) (1.0-6.0) % Eos % (Auto) (1.5-5.0) % Baso % (Auto) (0.0-3.0) % Gran # (1.4-6.5) Lymph # (1.2-3.4) [place] # (0.1-0.6) Eos # (0.0-0.7) Baso # (0.0-2.0) K/mm3 APTT 50.6 H (23.7-30.8) Seconds pCO2 (35-45) mm/Hg pO2 (80-100) mm/Hg HCO3 (21-28) mmol/L ABG pH (7.35-7.45) ABG Total CO2 (22-28) mmol.L ABG O2 Saturation (95-98) % ABG O2 Content (15-23) ML/dl ABG Base Excess (-2.0-3.0) mmol/L ABG Hemoglobin (11.7-17.4) g/dL ABG Carboxyhemoglobin (0.5-1.5) % POC ABG HHb (Measured) (0-5) % ABG Methemoglobin (0.0-3.0) % ABG O2 Capacity (16-24) mL/dl Hgb O2 Saturation (95.0-98.0) % FiO2 % Sodium (132-148) mmol/L Potassium (3.6-5.0) mmol/L Chloride (95-110) mmol/L Carbon Dioxide (21-33) mmol/L Anion Gap (10-20) BUN (7-21) mg/dL Creatinine (0.5-1.4) mg/dL Est GFR ( Amer) Est GFR (Non-Af Amer) POC Glucose (mg/dL) 148 H 163 H (65-110) mg/dL Random Glucose (70-110) mg/dL Calcium (8.4-10.5) mg/dL Phosphorus (2.5-4.5) mg/dL Magnesium (1.7-2.2) mg/dL Total Bilirubin (0.2-1.3) mg/dL AST (15-59) U/L ALT (7-56) U/L Alkaline Phosphatase (38-133) U/L Total Protein (5.8-8.3) g/dL Albumin (3.0-4.8) g/dL Globulin gm/dL Albumin/Globulin Ratio (1.1-1.8) Babesia microti DNA PCR (()) 09/04/16 09/04/16 09/04/16 Range/Units 05:10 05:00 00:10 WBC 19.5 H (4.5-11.0) 10^3/ul RBC 3.56 (3.5-6.1) 10^6/uL Hgb 10.8 L (14.0-18.0) gm/dL Hct 31.1 L (42.0-52.0) % MCV 87.4 (80.0-105.0) fL MCH 30.3 (25.0-35.0) pg MCHC 34.7 (31.0-37.0) g/dl RDW 16.8 H (11.5-14.5) % Plt Count 126 (120.0-450.0) 10^3/uL Gran % 88.4 H (50.0-68.0) % Lymph % (Auto) 4.5 L (22.0-35.0) % [place] % (Auto) 5.2 (1.0-6.0) % Eos % (Auto) 1.8 (1.5-5.0) % Baso % (Auto) 0.1 (0.0-3.0) % Gran # 17.25 H (1.4-6.5) Lymph # 0.9 L (1.2-3.4) [place] # 1.0 H (0.1-0.6) Eos # 0.4 (0.0-0.7) Baso # 0.02 (0.0-2.0) K/mm3 APTT 48.3 H (23.7-30.8) Seconds pCO2 34 L (35-45) mm/Hg pO2 54.0 L (80-100) mm/Hg HCO3 25.9 (21-28) mmol/L ABG pH 7.49 H (7.35-7.45) ABG Total CO2 26.9 (22-28) mmol.L ABG O2 Saturation 92.2 L (95-98) % ABG O2 Content 13.1 L (15-23) ML/dl ABG Base Excess 2.7 (-2.0-3.0) mmol/L ABG Hemoglobin 10.4 L (11.7-17.4) g/dL ABG Carboxyhemoglobin 2.0 H (0.5-1.5) % POC ABG HHb (Measured) 7.6 H (0-5) % ABG Methemoglobin 1.2 (0.0-3.0) % ABG O2 Capacity 14.2 L (16-24) mL/dl Hgb O2 Saturation 89.3 L (95.0-98.0) % FiO2 40.0 % Sodium 139 (132-148) mmol/L Potassium 3.5 L (3.6-5.0) mmol/L Chloride 104 (95-110) mmol/L Carbon Dioxide 26 (21-33) mmol/L Anion Gap 13 (10-20) BUN 38 H (7-21) mg/dL Creatinine 2.8 H (0.5-1.4) mg/dL Est GFR ( Amer) 26 Est GFR (Non-Af Amer) 22 POC Glucose (mg/dL) (65-110) mg/dL Random Glucose 123 H (70-110) mg/dL Calcium 7.1 L (8.4-10.5) mg/dL Phosphorus 3.9 (2.5-4.5) mg/dL Magnesium 1.8 (1.7-2.2) mg/dL Total Bilirubin 0.4 (0.2-1.3) mg/dL AST 23 (15-59) U/L ALT 39 (7-56) U/L Alkaline Phosphatase 76 (38-133) U/L Total Protein 4.6 L (5.8-8.3) g/dL Albumin 2.0 L (3.0-4.8) g/dL Globulin 2.6 gm/dL Albumin/Globulin Ratio 0.8 L (1.1-1.8) Babesia microti DNA PCR (()) 09/03/16 09/03/16 09/03/16 Range/Units 22:24 16:39 16:10 WBC (4.5-11.0) 10^3/ul RBC (3.5-6.1) 10^6/uL Hgb (14.0-18.0) gm/dL Hct (42.0-52.0) % MCV (80.0-105.0) fL MCH (25.0-35.0) pg MCHC (31.0-37.0) g/dl RDW (11.5-14.5) % Plt Count (120.0-450.0) 10^3/uL Gran % (50.0-68.0) % Lymph % (Auto) (22.0-35.0) % [place] % (Auto) (1.0-6.0) % Eos % (Auto) (1.5-5.0) % Baso % (Auto) (0.0-3.0) % Gran # (1.4-6.5) Lymph # (1.2-3.4) [place] # (0.1-0.6) Eos # (0.0-0.7) Baso # (0.0-2.0) K/mm3 APTT 42.7 H (23.7-30.8) Seconds pCO2 (35-45) mm/Hg pO2 (80-100) mm/Hg HCO3 (21-28) mmol/L ABG pH (7.35-7.45) ABG Total CO2 (22-28) mmol.L ABG O2 Saturation (95-98) % ABG O2 Content (15-23) ML/dl ABG Base Excess (-2.0-3.0) mmol/L ABG Hemoglobin (11.7-17.4) g/dL ABG Carboxyhemoglobin (0.5-1.5) % POC ABG HHb (Measured) (0-5) % ABG Methemoglobin (0.0-3.0) % ABG O2 Capacity (16-24) mL/dl Hgb O2 Saturation (95.0-98.0) % FiO2 % Sodium (132-148) mmol/L Potassium (3.6-5.0) mmol/L Chloride (95-110) mmol/L Carbon Dioxide (21-33) mmol/L Anion Gap (10-20) BUN (7-21) mg/dL Creatinine (0.5-1.4) mg/dL Est GFR ( Amer) Est GFR (Non-Af Amer) POC Glucose (mg/dL) 168 H 174 H (65-110) mg/dL Random Glucose (70-110) mg/dL Calcium (8.4-10.5) mg/dL Phosphorus (2.5-4.5) mg/dL Magnesium (1.7-2.2) mg/dL Total Bilirubin (0.2-1.3) mg/dL AST (15-59) U/L ALT (7-56) U/L Alkaline Phosphatase (38-133) U/L Total Protein (5.8-8.3) g/dL Albumin (3.0-4.8) g/dL Globulin gm/dL Albumin/Globulin Ratio (1.1-1.8) Babesia microti DNA PCR (()) 09/03/16 09/03/16 08/27/16 Range/Units 11:20 07:23 09:45 WBC (4.5-11.0) 10^3/ul RBC (3.5-6.1) 10^6/uL Hgb (14.0-18.0) gm/dL Hct (42.0-52.0) % MCV (80.0-105.0) fL MCH (25.0-35.0) pg MCHC (31.0-37.0) g/dl RDW (11.5-14.5) % Plt Count (120.0-450.0) 10^3/uL Gran % (50.0-68.0) % Lymph % (Auto) (22.0-35.0) % [place] % (Auto) (1.0-6.0) % Eos % (Auto) (1.5-5.0) % Baso % (Auto) (0.0-3.0) % Gran # (1.4-6.5) Lymph # (1.2-3.4) [place] # (0.1-0.6) Eos # (0.0-0.7) Baso # (0.0-2.0) K/mm3 APTT (23.7-30.8) Seconds pCO2 (35-45) mm/Hg pO2 (80-100) mm/Hg HCO3 (21-28) mmol/L ABG pH (7.35-7.45) ABG Total CO2 (22-28) mmol.L ABG O2 Saturation (95-98) % ABG O2 Content (15-23) ML/dl ABG Base Excess (-2.0-3.0) mmol/L ABG Hemoglobin (11.7-17.4) g/dL ABG Carboxyhemoglobin (0.5-1.5) % POC ABG HHb (Measured) (0-5) % ABG Methemoglobin (0.0-3.0) % ABG O2 Capacity (16-24) mL/dl Hgb O2 Saturation (95.0-98.0) % FiO2 % Sodium (132-148) mmol/L Potassium (3.6-5.0) mmol/L Chloride (95-110) mmol/L Carbon Dioxide (21-33) mmol/L Anion Gap (10-20) BUN (7-21) mg/dL Creatinine (0.5-1.4) mg/dL Est GFR ( Amer) Est GFR (Non-Af Amer) POC Glucose (mg/dL) 223 H 218 H (65-110) mg/dL Random Glucose (70-110) mg/dL Calcium (8.4-10.5) mg/dL Phosphorus (2.5-4.5) mg/dL Magnesium (1.7-2.2) mg/dL Total Bilirubin (0.2-1.3) mg/dL AST (15-59) U/L ALT (7-56) U/L Alkaline Phosphatase (38-133) U/L Total Protein (5.8-8.3) g/dL Albumin (3.0-4.8) g/dL Globulin gm/dL Albumin/Globulin Ratio (1.1-1.8) Babesia microti DNA PCR Not detected (()) Laboratory Results - last 24 hr 08/27/16 09/03/16 09/03/16 09:45 07:23 11:20 WBC RBC Hgb Hct MCV MCH MCHC RDW Plt Count Gran % Lymph % (Auto) [place] % (Auto) Eos % (Auto) Baso % (Auto) Gran # Lymph # [place] # Eos # Baso # APTT pCO2 pO2 HCO3 ABG pH ABG Total CO2 ABG O2 Saturation ABG O2 Content ABG Base Excess ABG Hemoglobin ABG Carboxyhemoglobin POC ABG HHb (Measured) ABG Methemoglobin ABG O2 Capacity Hgb O2 Saturation FiO2 Sodium Potassium Chloride Carbon Dioxide Anion Gap BUN Creatinine Est GFR ( Amer) Est GFR (Non-Af Amer) POC Glucose (mg/dL) 218 H 223 H Random Glucose Calcium Phosphorus Magnesium Total Bilirubin AST ALT Alkaline Phosphatase Total Protein Albumin Globulin Albumin/Globulin Ratio Babesia microti DNA PCR Not detected 09/03/16 09/03/16 09/03/16 16:10 16:39 22:24 WBC RBC Hgb Hct MCV MCH MCHC RDW Plt Count Gran % Lymph % (Auto) [place] % (Auto) Eos % (Auto) Baso % (Auto) Gran # Lymph # [place] # Eos # Baso # APTT 42.7 H pCO2 pO2 HCO3 ABG pH ABG Total CO2 ABG O2 Saturation ABG O2 Content ABG Base Excess ABG Hemoglobin ABG Carboxyhemoglobin POC ABG HHb (Measured) ABG Methemoglobin ABG O2 Capacity Hgb O2 Saturation FiO2 Sodium Potassium Chloride Carbon Dioxide Anion Gap BUN Creatinine Est GFR ( Amer) Est GFR (Non-Af Amer) POC Glucose (mg/dL) 174 H 168 H Random Glucose Calcium Phosphorus Magnesium Total Bilirubin AST ALT Alkaline Phosphatase Total Protein Albumin Globulin Albumin/Globulin Ratio Babesia microti DNA PCR 09/04/16 09/04/16 09/04/16 00:10 05:00 05:10 WBC 19.5 H RBC 3.56 Hgb 10.8 L Hct 31.1 L MCV 87.4 MCH 30.3 MCHC 34.7 RDW 16.8 H Plt Count 126 Gran % 88.4 H Lymph % (Auto) 4.5 L [place] % (Auto) 5.2 Eos % (Auto) 1.8 Baso % (Auto) 0.1 Gran # 17.25 H Lymph # 0.9 L [place] # 1.0 H Eos # 0.4 Baso # 0.02 APTT 48.3 H pCO2 34 L pO2 54.0 L HCO3 25.9 ABG pH 7.49 H ABG Total CO2 26.9 ABG O2 Saturation 92.2 L ABG O2 Content 13.1 L ABG Base Excess 2.7 ABG Hemoglobin 10.4 L ABG Carboxyhemoglobin 2.0 H POC ABG HHb (Measured) 7.6 H ABG Methemoglobin 1.2 ABG O2 Capacity 14.2 L Hgb O2 Saturation 89.3 L FiO2 40.0 Sodium 139 Potassium 3.5 L Chloride 104 Carbon Dioxide 26 Anion Gap 13 BUN 38 H Creatinine 2.8 H Est GFR ( Amer) 26 Est GFR (Non-Af Amer) 22 POC Glucose (mg/dL) Random Glucose 123 H Calcium 7.1 L Phosphorus 3.9 Magnesium 1.8 Total Bilirubin 0.4 AST 23 ALT 39 Alkaline Phosphatase 76 Total Protein 4.6 L Albumin 2.0 L Globulin 2.6 Albumin/Globulin Ratio 0.8 L Babesia microti DNA PCR 09/04/16 09/04/16 09/04/16 06:45 07:15 10:37 WBC RBC Hgb Hct MCV MCH MCHC RDW Plt Count Gran % Lymph % (Auto) [place] % (Auto) Eos % (Auto) Baso % (Auto) Gran # Lymph # [place] # Eos # Baso # APTT 50.6 H pCO2 pO2 HCO3 ABG pH ABG Total CO2 ABG O2 Saturation ABG O2 Content ABG Base Excess ABG Hemoglobin ABG Carboxyhemoglobin POC ABG HHb (Measured) ABG Methemoglobin ABG O2 Capacity Hgb O2 Saturation FiO2 Sodium Potassium Chloride Carbon Dioxide Anion Gap BUN Creatinine Est GFR ( Amer) Est GFR (Non-Af Amer) POC Glucose (mg/dL) 163 H 148 H Random Glucose Calcium Phosphorus Magnesium Total Bilirubin AST ALT Alkaline Phosphatase Total Protein Albumin Globulin Albumin/Globulin Ratio Babesia microti DNA PCR Fingerstick Blood Sugar Results: 163 Critical Care Progress Note - Nutrition Nutrition: Nutrition Category Date Time Status NPO Diet [DIET] Diets 08/31/16 Dinner Ordered Assessment/Plan - Assessment and Plan (Free Text) Plan: 82 years old male, AAO x 3 at baseline, living alone, with CAD s/p stent on plaix and CKD stage 4, parosximal A-fib not anticoagulated, Hx stroke with L weakness > 1 yr ago, Hx chronic ITP, was found unconscious on the floor on Sunday (08/26) covered with melonic stool with maroon blood clots. Pt had worsened L weakness compared to baseline, slurred speech, and new L nathan- neglect on Good Sunday (08/25). He was admitted to ICU with massive upper GI bleed. NSTEMI is due to Type 2 [place]. Cardiac catherterization showed triple vessel disease with diffuse artheroscloerosis with no new blockage. He has CHF, acute on chronic, diastolic and systolic (EF 30s). Elevated transaminase is now resolved. Pt is now on dialysis. He is extubated (on 08/30, and again on 09/03) for agonal breathing to compensate metabolic acidosis and pleural edema/ effusion - now on Bipap. WBC trends up to 19.5. T 99.2. He is on Heparin gtt for A-fib RVR with new splenic infarct. 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 Cardio - A-fib, new splenic infarct: s/p amiodarone gtt s/p cardizem gtt. - CHF: on dobutamin 2.5 mcg gtt; Afterload reduction by hydralazine 10 QID and isosorbide dinitrate 10 q8. HOLD LASIX - Type 2 FL, NSTEMI; Hb goal in [place] is Hb 10; CAD on metoprolol 5 IV q6, ASA OH, Pulm - Currently, On BIPAP - Goal is to decrease pulmonary support s/p dialysis - Increased secretion - Reposition, Chest PT, Duoneb PRN, Suction PRN, pulm toiletry PRN - On Brovana, Budesonide GI - Last feeding 09/03 - No active GI bleed. 1 black BM per night.0 Hb stable at 10. - Protonix IV BID - C.diff toxin and antigen negative - Bedside Endoscopy (08/28) showed no active bleed, barretts and PUD (1 organized healed scab, 2 clean based) no web - Chest, abdomen, pelvis w.o contrast: Proctitis - Abd u/s: Cholelithiasis with gallbladder wall thickening; small perocholecystic fluid. No sono martinez sign. Fatty liver Nephro - Dialysis. 3L fluid expected to be removed. 3K, 2.5Ca, 30 meq bicab dialysate. - Oliguric - Goal: negative fluid balance - Albumin 2 Endo - Hx non-IDDM - ISSS-low. - Goal blood sugar 140-180 - Avoid Kayexaltate in setting of GI bleed Heme - Hx ITP, Prosca on hold - LE dupplers b/l negative Infectious - WBC 19, temp 99.2, will remove RIJ central line. PICC in PM. hold heparin - Sputum culture (+) yeast - Merrem (day 3), Doxy, vanco PO - PNA work up: Babesia tests are negative; Mycoplasma IgM negative; urine Legionella Ag is negative - Hemorrhagic stool work up: Pending Babesia, malaria, GBM Ab, parvo B19, ANCA, mau - Negative Hep panel, HIV, - Negative ANCA - tylenol PRN Prophlaxis - heparin gtt - Protonix GI bleed dose Prognosis - Poor: Pneumonia severity index 257: Risk V. 30% mortality - Full Code Disposition - LTac. S/R/D/w Dr. Hernandez - Date & Time Date: 09/04/16 Time: 11:43 <Joby Hernandez - Last Filed: 09/05/16 11:51> CCU Objective - Vital Signs / Intake & Output Vital Signs (Last 4 hours): Vital Signs Pulse Resp BP Pulse Ox 09/05/16 10:52 32 H 09/05/16 08:00 107 H 27 H 126/53 L 97 Intake and Output (Last 8hrs): Intake & Output 09/04/16 09/05/16 09/05/16 22:59 06:59 14:59 Intake Total 388 486 100 Output Total 3100 125 Balance -2712 361 100 Weight 164 lb 3 oz Intake: IV 388 286 100 Right Internal Jugular 388 176 Right Upper arm 110 Other 200 Output: Urine 100 25 Urethral (Rodrigez) 100 25 Stool 100 Other 3000 Other: Voiding Method Indwelling Catheter # Bowel Movements 75 - Medications Active Medications: Active Medications Generic Name Dose Route Start Last Admin Trade Name Freq PRN Reason Stop Dose Admin Acetaminophen 650 mg 08/26/16 16:19 Tylenol 650 Mg Supp RC Q4H PRN Fever >100.4 F Arformoterol Tartrate 15 mcg 08/26/16 20:00 09/05/16 08:05 Brovana IH 15 mcg [id number] DENIZ Administration Artificial Tears 0 ml 09/01/16 12:30 09/05/16 08:39 Artificial Tears OU 1 drop Q6H DENIZ Administration Aspirin 150 mg 09/04/16 10:00 09/04/16 12:13 Aspirin Supp RC 150 mg DAILY DENIZ Administration Budesonide 0.5 mg 08/26/16 20:00 09/05/16 08:05 Pulmicort Respules IH 0.5 mg [id number] DENIZ Administration Furosemide 40 mg 08/28/16 22:00 09/02/16 12:22 Lasix IVP Not Given Q12 DENIZ Hydralazine HCl 10 mg 09/02/16 18:00 09/05/16 10:56 Apresoline PO Not Given QID DENIZ Heparin Sodium/Sodium Chloride 250 mls @ 13.904 mls/hr 09/01/16 07:19 08:00 Heparin 02748 Units/250ml 1/2 Normal Saline IV 14 units/kg/hr .[id number] PRN 10.815 mls/hr ADJUST RATE PER PROTOCOL Administration Protocol 18 UNITS/KG/HR Meropenem 500 mg/ Sodium 100 mls @ 100 mls/hr 09/02/16 10:15 09/05/16 09:41 Chloride IVPB 09/09/16 10:16 100 mls/hr Q12 DENIZ Administration Protocol Dobutamine HCl/Dextrose 250 mls @ 5.797 mls/hr 09/02/16 10:31 09/03/16 23:55 Dobutamine/Dextrose 5% 500mg/250ml IV 5.797 mls/hr .Q24H PRN Administration TITRATE PER PROTOCOL Protocol 2.5 MCG/KG/MIN diltiaZEM IVPB 100mg in NS 100 mls @ 5 mls/hr 09/04/16 13:27 09/05/16 08:00 Cardizem 100mg In Ns IV 15 mg/hr .Q20H PRN 15 mls/hr TITRATE PER MD ORDER Administration Protocol 5 MG/HR Linezolid 600 mg in 300 mls @ 200 mls/hr 09/05/16 10:15 09/05/16 10:25 Zyvox 600mg/300ml D5w IVPB 09/12/16 10:16 200 mls/hr Q12 DENIZ Administration Protocol Insulin Human Lispro 0 units 08/26/16 22:00 09/05/16 07:30 Humalog Low SC Not Given ACHS DENIZ Protocol Isosorbide Dinitrate 10 mg 09/02/16 18:30 09/05/16 10:57 Isordil PO Not Given Q8H DENIZ Metoprolol Tartrate 5 mg 08/29/16 14:00 09/05/16 08:30 Lopressor IVP 5 mg Q6H DENIZ Administration Pantoprazole Sodium 40 mg 08/26/16 22:00 09/05/16 09:43 Protonix Inj IVP 40 mg Q12 DENIZ Administration Tetrahydrozoline HCl/Zinc Sulfate 0 ml 08/30/16 21:02 Visine 0.05% Opht Soln OU BID PRN Dry eyes Vitamin A 1 ea 09/04/16 22:00 09/05/16 10:58 Vitamin A & D Oint Ud Foilpak TOP 1 ea Q12 DENIZ Administration - Patient Studies Lab Studies: Microbiology Studies 09/01/16 16:40 Blood Culture - Preliminary Blood-Venous NO GROWTH AFTER 3 DAYS 09/01/16 11:48 Blood Culture - Preliminary Blood-Venous NO GROWTH AFTER 3 DAYS Lab Studies 09/05/16 09/05/16 09/05/16 Range/Units 08:40 08:09 05:50 WBC (4.5-11.0) 10^3/ul RBC (3.5-6.1) 10^6/uL Hgb (14.0-18.0) gm/dL Hct (42.0-52.0) % MCV (80.0-105.0) fL MCH (25.0-35.0) pg MCHC (31.0-37.0) g/dl RDW (11.5-14.5) % Plt Count (120.0-450.0) 10^3/uL Gran % (50.0-68.0) % Lymph % (Auto) (22.0-35.0) % [place] % (Auto) (1.0-6.0) % Eos % (Auto) (1.5-5.0) % Baso % (Auto) (0.0-3.0) % Gran # (1.4-6.5) Lymph # (1.2-3.4) [place] # (0.1-0.6) Eos # (0.0-0.7) Baso # (0.0-2.0) K/mm3 PT (9.9-11.8) Seconds INR (0.93-1.08) APTT 55.9 H (23.7-30.8) Seconds pCO2 29 L (35-45) mm/Hg pO2 66.0 L (80-100) mm/Hg HCO3 20.6 L (21-28) mmol/L ABG pH 7.46 H (7.35-7.45) ABG Total CO2 21.5 L (22-28) mmol.L ABG O2 Saturation 95.8 (95-98) % ABG O2 Content 15.9 (15-23) ML/dl ABG Base Excess -2.2 L (-2.0-3.0) mmol/L ABG Hemoglobin 12.1 (11.7-17.4) g/dL ABG Carboxyhemoglobin 1.7 H (0.5-1.5) % POC ABG HHb (Measured) 4.1 (0-5) % ABG Methemoglobin 1.0 (0.0-3.0) % ABG O2 Capacity 16.6 (16-24) mL/dl Hgb O2 Saturation 93.2 L (95.0-98.0) % FiO2 100.0 % Sodium (132-148) mmol/L Potassium (3.6-5.0) mmol/L Chloride (95-110) mmol/L Carbon Dioxide (21-33) mmol/L Anion Gap (10-20) BUN (7-21) mg/dL Creatinine (0.5-1.4) mg/dL Est GFR ( Amer) Est GFR (Non-Af Amer) POC Glucose (mg/dL) 182 H (65-110) mg/dL Random Glucose (70-110) mg/dL Calcium (8.4-10.5) mg/dL Phosphorus (2.5-4.5) mg/dL Magnesium (1.7-2.2) mg/dL Total Bilirubin (0.2-1.3) mg/dL AST (15-59) U/L ALT (7-56) U/L Alkaline Phosphatase (38-133) U/L Total Protein (5.8-8.3) g/dL Albumin (3.0-4.8) g/dL Globulin gm/dL Albumin/Globulin Ratio (1.1-1.8) Crossmatch 09/05/16 09/05/16 09/05/16 Range/Units 04:40 04:40 04:40 WBC 24.6 H D (4.5-11.0) 10^3/ul RBC 3.59 (3.5-6.1) 10^6/uL Hgb 11.0 L (14.0-18.0) gm/dL Hct 31.5 L (42.0-52.0) % MCV 87.7 (80.0-105.0) fL MCH 30.6 (25.0-35.0) pg MCHC 34.9 (31.0-37.0) g/dl RDW 17.0 H (11.5-14.5) % Plt Count 136 (120.0-450.0) 10^3/uL Gran % 92.1 H (50.0-68.0) % Lymph % (Auto) 2.4 L (22.0-35.0) % [place] % (Auto) 5.4 (1.0-6.0) % Eos % (Auto) 0.1 L (1.5-5.0) % Baso % (Auto) 0.0 (0.0-3.0) % Gran # 22.60 H (1.4-6.5) Lymph # 0.6 L (1.2-3.4) [place] # 1.3 H (0.1-0.6) Eos # 0.0 (0.0-0.7) Baso # 0.01 (0.0-2.0) K/mm3 PT 14.0 H (9.9-11.8) Seconds INR 1.30 H (0.93-1.08) APTT 57.8 H (23.7-30.8) Seconds pCO2 (35-45) mm/Hg pO2 (80-100) mm/Hg HCO3 (21-28) mmol/L ABG pH (7.35-7.45) ABG Total CO2 (22-28) mmol.L ABG O2 Saturation (95-98) % ABG O2 Content (15-23) ML/dl ABG Base Excess (-2.0-3.0) mmol/L ABG Hemoglobin (11.7-17.4) g/dL ABG Carboxyhemoglobin (0.5-1.5) % POC ABG HHb (Measured) (0-5) % ABG Methemoglobin (0.0-3.0) % ABG O2 Capacity (16-24) mL/dl Hgb O2 Saturation (95.0-98.0) % FiO2 % Sodium 136 (132-148) mmol/L Potassium 4.0 (3.6-5.0) mmol/L Chloride 102 (95-110) mmol/L Carbon Dioxide 23 (21-33) mmol/L Anion Gap 15 (10-20) BUN 34 H (7-21) mg/dL Creatinine 2.9 H (0.5-1.4) mg/dL Est GFR ( Amer) 25 Est GFR (Non-Af Amer) 21 POC Glucose (mg/dL) (65-110) mg/dL Random Glucose 150 H (70-110) mg/dL Calcium 7.4 L (8.4-10.5) mg/dL Phosphorus 5.0 H (2.5-4.5) mg/dL Magnesium 1.9 (1.7-2.2) mg/dL Total Bilirubin 0.5 (0.2-1.3) mg/dL AST 30 (15-59) U/L ALT 35 (7-56) U/L Alkaline Phosphatase 88 (38-133) U/L Total Protein 4.8 L (5.8-8.3) g/dL Albumin 2.1 L (3.0-4.8) g/dL Globulin 2.7 gm/dL Albumin/Globulin Ratio 0.8 L (1.1-1.8) Crossmatch 09/04/16 09/04/16 09/04/16 Range/Units 21:20 20:10 15:50 WBC (4.5-11.0) 10^3/ul RBC (3.5-6.1) 10^6/uL Hgb (14.0-18.0) gm/dL Hct (42.0-52.0) % MCV (80.0-105.0) fL MCH (25.0-35.0) pg MCHC (31.0-37.0) g/dl RDW (11.5-14.5) % Plt Count (120.0-450.0) 10^3/uL Gran % (50.0-68.0) % Lymph % (Auto) (22.0-35.0) % [place] % (Auto) (1.0-6.0) % Eos % (Auto) (1.5-5.0) % Baso % (Auto) (0.0-3.0) % Gran # (1.4-6.5) Lymph # (1.2-3.4) [place] # (0.1-0.6) Eos # (0.0-0.7) Baso # (0.0-2.0) K/mm3 PT (9.9-11.8) Seconds INR (0.93-1.08) APTT 42.0 H (23.7-30.8) Seconds pCO2 (35-45) mm/Hg pO2 (80-100) mm/Hg HCO3 (21-28) mmol/L ABG pH (7.35-7.45) ABG Total CO2 (22-28) mmol.L ABG O2 Saturation (95-98) % ABG O2 Content (15-23) ML/dl ABG Base Excess (-2.0-3.0) mmol/L ABG Hemoglobin (11.7-17.4) g/dL ABG Carboxyhemoglobin (0.5-1.5) % POC ABG HHb (Measured) (0-5) % ABG Methemoglobin (0.0-3.0) % ABG O2 Capacity (16-24) mL/dl Hgb O2 Saturation (95.0-98.0) % FiO2 % Sodium (132-148) mmol/L Potassium (3.6-5.0) mmol/L Chloride (95-110) mmol/L Carbon Dioxide (21-33) mmol/L Anion Gap (10-20) BUN (7-21) mg/dL Creatinine (0.5-1.4) mg/dL Est GFR ( Amer) Est GFR (Non-Af Amer) POC Glucose (mg/dL) 155 H 137 H (65-110) mg/dL Random Glucose (70-110) mg/dL Calcium (8.4-10.5) mg/dL Phosphorus (2.5-4.5) mg/dL Magnesium (1.7-2.2) mg/dL Total Bilirubin (0.2-1.3) mg/dL AST (15-59) U/L ALT (7-56) U/L Alkaline Phosphatase (38-133) U/L Total Protein (5.8-8.3) g/dL Albumin (3.0-4.8) g/dL Globulin gm/dL Albumin/Globulin Ratio (1.1-1.8) Crossmatch 09/01/16 Range/Units 10:50 WBC (4.5-11.0) 10^3/ul RBC (3.5-6.1) 10^6/uL Hgb (14.0-18.0) gm/dL Hct (42.0-52.0) % MCV (80.0-105.0) fL MCH (25.0-35.0) pg MCHC (31.0-37.0) g/dl RDW (11.5-14.5) % Plt Count (120.0-450.0) 10^3/uL Gran % (50.0-68.0) % Lymph % (Auto) (22.0-35.0) % [place] % (Auto) (1.0-6.0) % Eos % (Auto) (1.5-5.0) % Baso % (Auto) (0.0-3.0) % Gran # (1.4-6.5) Lymph # (1.2-3.4) [place] # (0.1-0.6) Eos # (0.0-0.7) Baso # (0.0-2.0) K/mm3 PT (9.9-11.8) Seconds INR (0.93-1.08) APTT (23.7-30.8) Seconds pCO2 (35-45) mm/Hg pO2 (80-100) mm/Hg HCO3 (21-28) mmol/L ABG pH (7.35-7.45) ABG Total CO2 (22-28) mmol.L ABG O2 Saturation (95-98) % ABG O2 Content (15-23) ML/dl ABG Base Excess (-2.0-3.0) mmol/L ABG Hemoglobin (11.7-17.4) g/dL ABG Carboxyhemoglobin (0.5-1.5) % POC ABG HHb (Measured) (0-5) % ABG Methemoglobin (0.0-3.0) % ABG O2 Capacity (16-24) mL/dl Hgb O2 Saturation (95.0-98.0) % FiO2 % Sodium (132-148) mmol/L Potassium (3.6-5.0) mmol/L Chloride (95-110) mmol/L Carbon Dioxide (21-33) mmol/L Anion Gap (10-20) BUN (7-21) mg/dL Creatinine (0.5-1.4) mg/dL Est GFR ( Amer) Est GFR (Non-Af Amer) POC Glucose (mg/dL) (65-110) mg/dL Random Glucose (70-110) mg/dL Calcium (8.4-10.5) mg/dL Phosphorus (2.5-4.5) mg/dL Magnesium (1.7-2.2) mg/dL Total Bilirubin (0.2-1.3) mg/dL AST (15-59) U/L ALT (7-56) U/L Alkaline Phosphatase (38-133) U/L Total Protein (5.8-8.3) g/dL Albumin (3.0-4.8) g/dL Globulin gm/dL Albumin/Globulin Ratio (1.1-1.8) Crossmatch See Detail Laboratory Results - last 24 hr 09/01/16 09/04/16 09/04/16 10:50 15:50 20:10 WBC RBC Hgb Hct MCV MCH MCHC RDW Plt Count Gran % Lymph % (Auto) [place] % (Auto) Eos % (Auto) Baso % (Auto) Gran # Lymph # [place] # Eos # Baso # PT INR APTT 42.0 H pCO2 pO2 HCO3 ABG pH ABG Total CO2 ABG O2 Saturation ABG O2 Content ABG Base Excess ABG Hemoglobin ABG Carboxyhemoglobin POC ABG HHb (Measured) ABG Methemoglobin ABG O2 Capacity Hgb O2 Saturation FiO2 Sodium Potassium Chloride Carbon Dioxide Anion Gap BUN Creatinine Est GFR ( Amer) Est GFR (Non-Af Amer) POC Glucose (mg/dL) 137 H Random Glucose Calcium Phosphorus Magnesium Total Bilirubin AST ALT Alkaline Phosphatase Total Protein Albumin Globulin Albumin/Globulin Ratio Crossmatch See Detail 09/04/16 09/05/16 09/05/16 21:20 04:40 04:40 WBC 24.6 H D RBC 3.59 Hgb 11.0 L Hct 31.5 L MCV 87.7 MCH 30.6 MCHC 34.9 RDW 17.0 H Plt Count 136 Gran % 92.1 H Lymph % (Auto) 2.4 L [place] % (Auto) 5.4 Eos % (Auto) 0.1 L Baso % (Auto) 0.0 Gran # 22.60 H Lymph # 0.6 L [place] # 1.3 H Eos # 0.0 Baso # 0.01 PT 14.0 H INR 1.30 H APTT 57.8 H pCO2 pO2 HCO3 ABG pH ABG Total CO2 ABG O2 Saturation ABG O2 Content ABG Base Excess ABG Hemoglobin ABG Carboxyhemoglobin POC ABG HHb (Measured) ABG Methemoglobin ABG O2 Capacity Hgb O2 Saturation FiO2 Sodium Potassium Chloride Carbon Dioxide Anion Gap BUN Creatinine Est GFR ( Amer) Est GFR (Non-Af Amer) POC Glucose (mg/dL) 155 H Random Glucose Calcium Phosphorus Magnesium Total Bilirubin AST ALT Alkaline Phosphatase Total Protein Albumin Globulin Albumin/Globulin Ratio Crossmatch 09/05/16 09/05/16 09/05/16 04:40 05:50 08:09 WBC RBC Hgb Hct MCV MCH MCHC RDW Plt Count Gran % Lymph % (Auto) [place] % (Auto) Eos % (Auto) Baso % (Auto) Gran # Lymph # [place] # Eos # Baso # PT INR APTT pCO2 29 L pO2 66.0 L HCO3 20.6 L ABG pH 7.46 H ABG Total CO2 21.5 L ABG O2 Saturation 95.8 ABG O2 Content 15.9 ABG Base Excess -2.2 L ABG Hemoglobin 12.1 ABG Carboxyhemoglobin 1.7 H POC ABG HHb (Measured) 4.1 ABG Methemoglobin 1.0 ABG O2 Capacity 16.6 Hgb O2 Saturation 93.2 L FiO2 100.0 Sodium 136 Potassium 4.0 Chloride 102 Carbon Dioxide 23 Anion Gap 15 BUN 34 H Creatinine 2.9 H Est GFR ( Amer) 25 Est GFR (Non-Af Amer) 21 POC Glucose (mg/dL) 182 H Random Glucose 150 H Calcium 7.4 L Phosphorus 5.0 H Magnesium 1.9 Total Bilirubin 0.5 AST 30 ALT 35 Alkaline Phosphatase 88 Total Protein 4.8 L Albumin 2.1 L Globulin 2.7 Albumin/Globulin Ratio 0.8 L Crossmatch 09/05/16 08:40 WBC RBC Hgb Hct MCV MCH MCHC RDW Plt Count Gran % Lymph % (Auto) [place] % (Auto) Eos % (Auto) Baso % (Auto) Gran # Lymph # [place] # Eos # Baso # PT INR APTT 55.9 H pCO2 pO2 HCO3 ABG pH ABG Total CO2 ABG O2 Saturation ABG O2 Content ABG Base Excess ABG Hemoglobin ABG Carboxyhemoglobin POC ABG HHb (Measured) ABG Methemoglobin ABG O2 Capacity Hgb O2 Saturation FiO2 Sodium Potassium Chloride Carbon Dioxide Anion Gap BUN Creatinine Est GFR ( Amer) Est GFR (Non-Af Amer) POC Glucose (mg/dL) Random Glucose Calcium Phosphorus Magnesium Total Bilirubin AST ALT Alkaline Phosphatase Total Protein Albumin Globulin Albumin/Globulin Ratio Crossmatch Critical Care Progress Note - Nutrition Nutrition: Nutrition Category Date Time Status NPO Diet [DIET] Diets 09/04/16 Breakfast Ordered Addendum Addendum: 09/05/16 11:[address] hernandez note
[2016-09-04] MEDS: Meropenem 500 MG in Sodium Chloride 0.9% 100 ML IVPB SCH ×2 (12:14→23:35)
[2016-09-04] MEDS ORDERED: Lidocaine 2% Inj (20ml) ONE (13:09)
[2016-09-04] MEDS: diltiaZEM IVPB 100mg in NS 100 ML IV PRN ×2 (13:32→23:00)
--- NOTE | 2016-09-04 14:02 | PN ---
DATE: 09/04/2016 SUBJECTIVE: The patient is currently seen with a BiPAP mask on. He was extubated yesterday post-ultrafiltration of 3 kilos of fluid with yesterday's extra dialysis. Today, patient had completed dialysis with removal of an additional 3 kilo of fluid. The patient is currently felt to be euvolemic with removal of 6 kilos of fluid in the last 24 hours. He appears to be tolerating extubation well. He does have a mild respiratory alkalosis secondary to hyperventilation. The patient remains on IV Dobutrex inotropic support, off IV Cardizem. The patient appears to be alert. Eyes are open. He speaks only Nepali, so there is no communication. MEDICATIONS: Medication list reviewed. The patient is on hydralazine, artificial tears, aspirin, Brovana, and Dobutrex, doxycycline, heparin is on hold, insulin, Lasix is on hold, Lopressor, meropenem, Protonix, Pulmicort Respules, p.r.n. Tylenol and Visine eyedrops. OBJECTIVE DATA: INTAKE AND OUTPUT: Intake 1074, output 3250, 3000 was with dialysis yesterday. VITAL SIGNS: Blood pressure 114/78, pulse is 118 and irregular. Respiratory rate is 26, temperature 98.3. HEENT: Eyes are open. Conjunctivae are pink. Sclerae are nonicteric. The patient has a BiPAP mask in place. NECK: Supple, no neck vein distention. CHEST: Clear to auscultation and percussion with decreased breath sounds at the bases and occasional scattered rhonchi. No rales audible. CARDIOVASCULAR: Regular S1, S2. No S3, no S4. MR/TR. No rub. ABDOMEN: Soft. Bowel sounds normal. No rebound, no guarding, no masses. EXTREMITIES: Show diminished lower extremity pulses bilaterally. No cyanosis, clubbing or edema. LABORATORY DATA AND IMAGING: Lab work from today, CBC: White blood cell count 19.5, hemoglobin improved to 10.8, platelet count 126,000. Blood gas pH 7.49, pCO2 of 34 with a pO2 of 54 with an FiO2 of 40%. Chemistries: Potassium 3.5. The patient dialyzed on a 3.0 K bath. Electrolytes are otherwise normal. Creatinine of 2.8, significantly improved with the patient receiving essentially daily dialysis. Glucose 123, calcium 7.1 with an albumin of 2.0; it corrects to normal. Phosphorus 3.9 with a magnesium of 1.8. Microbiology: Tracheal aspirate is positive for yeast. Otherwise, cultures are all negative. Chest x-ray today shows significant improvement in pulmonary edema with ultrafiltration of 3 kg yesterday and an additional 3 kg of fluid today. ASSESSMENT: 1. Acute renal failure superimposed on chronic kidney disease stage IV. The patient appears to be dialysis dependent. He appears to be oliguric. I would like to transition patient over to perhaps dialysis every other day as long as he remains euvolemic. In all likelihood, the patient probably will require dialysis for the foreseeable future and will likely require chronic dialysis in an outpatient setting. 2. History of coronary artery disease, multivessel, status post cardiac catheterization. The patient has hypokinetic LV and is receiving Dobutrex inotropic support. 3. History of non-insulin dependent diabetes mellitus. The patient continues on sliding scale insulin. Glucose control is acceptable. 4. History of arteriosclerotic heart disease, status post recent non-ST elevation myocardial infarction, cardiomyopathy, ejection fraction 30% to 35%. Mitral regurgitation/tricuspid regurgitation with multivessel coronary artery disease. 5. History of sepsis, hypotension, possible aspiration pneumonia. This appears to have cleared radiographically. The patient will complete a course of antibiotic therapy. 6. History of diarrhea. This has improved. The patient is presently off vancomycin and Flagyl. Clostridium difficile studies have been negative. 7. History of atrial fibrillation. The patient is currently off IV Cardizem. Heart rate remains in the low 100 range. The patient currently continues on beta dary therapy. 8. History of secondary hyperparathyroidism. Phosphorus level is now normal. Corrected calcium level is normal. The patient is currently not receiving Nepro. Currently, he is not presently on a regular diet. He should start a renal diet when he starts oral intake. 9. History of anemia secondary to chronic kidney disease. Hemoglobin has been stable. The patient has received a total of 6 units of packed red blood cells. 10. History of respiratory failure in part secondary to volume overload and congestive heart failure. This has improved. The patient was successfully extubated yesterday and remains on BiPAP mask. PLAN: 1. Discussed with CCU staff in detail. We will continue to monitor patient for the need for daily dialysis, but I would like to try and transition him over to dialysis 3 times a week. 2. Complete a course of IV antibiotic therapy. 3. Continue to monitor blood gas status. Presently, the patient has a mild respiratory alkalosis. 4. Continue PPI therapy to prevent any bleeding. 5. Continue inhalation therapy. 6. Continue patient on inotropic support in light of his reduced ejection fraction and cardiomyopathy. At present, no plans for dialysis tomorrow. We will try and keep patient on a Sunday, Sunday, Sunday dialysis schedule. Should the patient become more short of breath or should the patient become more hypervolemic, then there will be no choice but to continue dialysis on a more than 3 times a week basis. Greater than 35 minutes spent in the care of this patient. Maynor Malave MD cc: [phone] TT: 09/04/2016 14:02:36 Confirmation # [id number] Dictation # [id number] karl LEVY
--- NOTE | 2016-09-04 19:08 | VASCULAR ---
PROCEDURE: Ultrasound fluoroscopically placed right upper extremity PICC line HISTORY: Multi organ failure. Sepsis. Needs IV access. PHYSICIAN(S): Bashir Mejia MD. TECHNIQUE: The relative risks and indications of the procedure were explained the patient's family and consent obtained. The patient is placed supine on the arteriogram table in the right arm extended. The right arm was prepped and draped usual sterile fashion. A tourniquet was applied the right axilla. Under direct ultrasound guidance, the right basilic vein was punctured above the elbow. A 0.018 guidewire was advanced centrally can't used to measure the length the SVC/RA junction. A 5 Georgian dual-lumen PICC line 44 cm long was advanced the SVC/RA junction. The catheter was flushed and secured FINDINGS: . IMPRESSION: Ultrasound and fluoroscopically placed right upper extremity PICC line.
--- NOTE | 2016-09-04 20:05 | PN ---
DATE: 09/04/2016 REFERRING PHYSICIAN: Dr. Myers. SUBJECTIVE: The patient is extubated on noninvasive ventilation, arousable, follows simple commands, events noted. Meeting of electroplating sales representative, resident and the patient and family. The patient is made DNR and DNI and extubation was done on BiPAP. There is no hemoptysis. Has shortness of breath. No vom iting. No hematuria. No diarrhea. Has trace leg swelling. OBJECTIVE: GENERAL: No acute distress. VITAL SIGNS: Temperature is 98, heart rate is 105, respiratory rate is 30, pulse ox is about 87, blo od pressure 122/53. HEENT: Moist mucous membranes. Crowded airway. Mallampati score is 4. NECK: Supple. No JVD. LUNGS: Has crackles at the bases, scattered rhonchi. HEART: S1, S2 tachycardic. ABDOMEN: Soft, nontender. No organomegaly. EXTREMITIES: There is edema of the lower extremities. NEUROLOGIC: Sleepy, arousable, follows simple command. MEDICATIONS: He is on hydralazine 10 mg q.i.d., artificial tears to both eyes, aspirin 150 mg rectal ly daily, Brovana 15 mcg inhaled twice a day, IV diltiazem , IV dobutamine, doxycycline 100 mg t wice a day, heparin weight-based protocol, insulin coverage, isosorbide 10 mg q. 8 hours, Lasix 40 mg IV q. 12 hours, metoprolol tartrate 5 mg IV q. 6 hours, meropenem 500 mg q. 12 hours, Protonix 40 mg daily, Pulmicort inhaled twice a day, Tylenol on a p.r.n. basis. LABORATORY DATA: Shows hemoglobin 10.8, hematocrit 31.1, WBC 19.5, platelet count is 126. PTT is 51 . Today's blood gases pH 7.49, pCO2 of 34, O2 of 54, less than 40% oxygen. Chemistry shows sodium 1 39, potassium 3.5, chloride 104, bicarbonate 26, BUN 38, creatinine 2.8, glucose 123, calcium 7.1, ph osphorus 3.9, magnesium 1.8, AST 23, ALT 39, alkaline phosphatase is 76, albumin is 2.0. Stool guaia c is positive. Tracheal secretion had some yeast. Chest x-ray shows stable infiltrate. IMPRESSION AND PLAN: Multiorgan dysfunction, status post respiratory failure, pulmonary edema may be component of aspiration pneumonia, cardiomyopathy, extensive coronary artery disease, renal failure been on dialysis, atrial fibrillation with rapid ventricular response. Overall, poor prognosis. Soc ial worker notes noted. Family is wishing the patient for LTAC type of services. They continue to w bharat to have dialysis. The patient was made DNR and DNI. We will continue BiPAP as needed basis. Br onchodilators. Dialysis. Cardiology followup. Followup labs in the morning. Thank you and will fo llow with you. Shawn Ruff MD cc: [phone] TT: 09/04/2016 20:04:48 Confirmation # [id number] Dictation # [id number] mn
[2016-09-04] MEDS: Vitamins A & D Oint UD Foilpak TOP SCH (22:42)
--- NOTE | 2016-09-05 00:21 | PN ---
DATE: 09/04/2016 SUBJECTIVE: This patient was seen and evaluated earlier. The patient was extubated. The patient is on BiPAP, presently DNR/DNI as per the family. PHYSICAL EXAMINATION: VITAL SIGNS: Temperature afebrile, blood pressure is 122/53, respirations 28, heart rate 108, pulse 92. HEENT: Atraumatic, anicteric. Left facial droop present. NECK: Supple, no JVD. LUNGS: Bilateral air entry present. A few scattered rhonchi present. HEART: S1, S2 heard. Tachycardic. ABDOMEN: Soft. There is no mass, no tenderness. EXTREMITIES: Edema present. LABORATORY DATA: Hemoglobin 10.8, hematocrit 31.1, WBC is 19.5, platelets 126. Chemistry: BUN 38, creatinine 2.8. IMPRESSION: This is an 81-year-old patient admitted with severe anemia and GI bleeding, status post GA, significantly elevated troponin, respiratory failure status post extubation, pulmonary idris a, diabetes mellitus, chronic kidney disease, end-stage renal disease, atherosclerotic heart disease status post PCI in the past, stent placement, atrial fibrillation status post splenic infarct on IV h eparin. The patient had an endoscopy done, 2 ulcers present, 1 in the upper body and antrum, another is in th e prepyloric area, presently on aspirin and also presently on IV heparin and the patient is on PPI, 4 0 mg Protonix. Continue to follow up the hemoglobin, appears to be stable. Continue to closely foll ow up the hemoglobin and hematocrit. Continue the antibiotics as per ID. History of ITP. We will c dianna to closely follow up his care. Thank you very much for allowing us to participate in the care of the patient. Eleonora Dillard MD cc: [phone] TT: 09/05/2016 00:20:25 Confirmation # [id number] Dictation # [id number] isis
[2016-09-05] MEDS: Aritificial Tears (15ml) OU SCH ×4 (00:30→18:51)
[2016-09-05] MEDS: Metoprolol 1 mg/ml Inj IVP SCH ×4 (03:45→20:37)
[2016-09-05 06:27] LABS: INR 1.3 (0.93-1.08); PARTIAL THROMBOPLASTIN TIME 57.8 Seconds (23.7-30.8)
[2016-09-05 06:58] LABS: ADD MANUAL DIFF? NO
[2016-09-05] MEDS: DOBUTamine 500mg/250ml D5W 250 ML IV PRN ×2 (07:00→19:08)
[2016-09-05] MEDS: Insulin Lispro (humaLOG) LOW Coverage SC SCH ×4 (07:30→22:14)
[2016-09-05 07:40] LABS: ARTERIAL BLOOD GAS HCO3 20.6 mmol/L (21-28); ARTERIAL BLOOD GAS O2 CAPACITY 16.6 mL/dl (16-24); ARTERIAL BLOOD GAS O2 CONTENT 15.9 ML/dl (15-23); ARTERIAL BLOOD GAS PH 7.46 (7.35-7.45); ARTERIAL BLOOD HGB O2 SAT 93.2 % (95.0-98.0); CARBOXYHEMOGLOBIN 1.7 % (0.5-1.5); HHB 4.1 % (0-5)
[2016-09-05 07:45] LABS: BASO # 0.01 [, K/mm3] (0.0-2.0); EOS % 0.1 % (1.5-5.0); GRAN % 92.1 % (50.0-68.0); HEMATOCRIT 31.5 % (42.0-52.0); LYMPH # 0.6 (1.2-3.4); LYMPH % 2.4 % (22.0-35.0); MEAN CELL VOLUME 87.7 fL (80.0-105.0); MEAN CORPUSCULAR HEMOGLOBIN 30.6 pg (25.0-35.0); MEAN CORPUSCULAR HGB CONC 34.9 g/dl (31.0-37.0); MONO # 1.3 (0.1-0.6); MONO % 5.4 % (1.0-6.0); PLATELET COUNT 136 [, 10^3/uL] (120.0-450.0); WHITE BLOOD COUNT 24.6 [, 10^3/ul] (4.5-11.0)
[2016-09-05] MEDS: Heparin25000 units/250ml 1/2NS 250 ML IV PRN (08:00)
[2016-09-05] MEDS: diltiaZEM IVPB 100mg in NS 100 ML IV PRN ×2 (08:00→14:59)
[2016-09-05] MEDS: Arformoterol 15 mcg/2 ml Inh Sol IH SCH ×2 (08:05→20:30)
[2016-09-05] MEDS: Budesonide 0.5 mg/2 ml Inhal Susp UD IH SCH ×2 (08:05→20:30)
--- NOTE | 2016-09-05 08:06 | PN ---
DATE: 09/04/2016 The patient is an 81-year-old male. The patient was seen and examined on the bedside. The patient is extubated, on noninvasive ventilation, arousable, follows simple commands, not big change in the status, getting dialysis. The patient is made DNR and DNI and extubated, is on BiPAP. No hematuria, no hematochezia. No fever, no chills. Has trace swelling of the legs. No diarrhea, no constipation. PHYSICAL EXAMINATION: VITAL SIGNS: Temperature 98, heart rate 105, respirations 20, blood pressure 122/53. HEENT: Head normocephalic, atraumatic. Eyes: PERRLA. Extraocular muscles intact. Conjunctivae clear. Nose patent. Mucous membranes moist. NECK: Supple. LUNGS: Have crackles at the bases, scattered rhonchi. HEART: S1, S2 positive. Tachycardia. ABDOMEN: Soft, nontender. No organomegaly. EXTREMITIES: There is edema of the lower extremities, no cyanosis. NEUROLOGIC: The patient has closed eyes, arousable, follows simple commands, but not communicating. MEDICATIONS: Hydralazine, artificial tears, aspirin, Brovana, diltiazem, dobutamine, doxycycline, heparin, insulin coverage, isosorbide, Lasix, metoprolol, meropenem, Protonix, Pulmicort inhaler, Tylenol. LABORATORIES: Hemoglobin 10.8, hematocrit 31.1, white blood cells 19.5, platelets 126. Sodium 139, potassium 3.5, BUN noted , creatinine 2.8, glucose 123, calcium 7. magnesium 1.8. AST 23, ALT 39. Stool guaiac is positive. urine have some yeast. ASSESSMENT AND PLAN: The patient is an 81-year-old male with multiorgan dysfunction, was intubated, now extubated, made do not resuscitate and do not intubate, status post respiratory failure, pulmonary edema, aspiration pneumonia , cardiomyopathy, extensive coronary artery disease, renal failure on hemodialysis, atrial fibrillation, rapid ventricular response. Overall prognosis is poor. Dr. Ruff spoke to the family , may be transfer patient to LTAC services. Social workers are working on that. We will continue dialysis. I reviewed Dr. Ruff's notes. Filter Tank Tender Helper Head is on the case also. Gastrointestinal and deep venous thrombosis prophylaxis. Seen by Dr. Maynor Molina, vehicle operator technician, Dr. Bashir Samson, GI doctor, Dr. Dillard. Will follow up. Sana Myers MD cc: [id number] TT: 09/05/2016 07:49:56 Confirmation # [id number] Dictation # [id number] MTDD
[2016-09-05 08:08] LABS: ALB/GLOB RATIO 0.8 (1.1-1.8); BILIRUBIN,TOTAL 0.5 mg/dL (0.2-1.3); CALCIUM 7.4 mg/dL (8.4-10.5); MAGNESIUM 1.9 mg/dL (1.7-2.2); TOTAL PROTEIN 4.8 g/dL (5.8-8.3)
--- NOTE | 2016-09-05 08:30 | RAD ---
HISTORY: shortness of breath COMPARISON: 09/04/2016 FINDINGS: LUNGS: There is an increasing infiltrate at the right lung base. There is no change in the more extensive infiltrate in the left lung. There is also a left effusion PLEURA: Left effusion CARDIOVASCULAR: Cardiomegaly OSSEOUS STRUCTURES: No significant abnormalities. VISUALIZED UPPER ABDOMEN: Normal. OTHER FINDINGS: The right internal jugular line has been replaced with a right-sided PICC line that terminates in the right atrium. There is a left internal jugular dialysis catheter IMPRESSION: There is an increasing infiltrate at the right lung base. There is no change in the more extensive infiltrate in the left lung. There is also a left effusion
--- NOTE | 2016-09-05 08:38 | CP.CCUPN ---
<Izabela Luis - Last Filed: 09/05/16 10:25> CCU Subjective - Physician Review Subjective (Free Text): 08/28/16 09:19 Intubated yesterday for abdominal agonal breath. 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, new compared echo 1 year ago 08/30/16 13:53 No Melena overnight CXR - decreased pulm edema with lasix q12 plus 100 IV x 1 HR 60s, BP 100s extubated, on NRB 12L, HR 62, POx 97, BP in high 90s 08/31/16 07:47 Overnight, Got deniz lasix. In addition lopressor x 1 for Sinus tachy at 130s. Bipap at night. This am at A-fib RVR 140s - given bicarb, amiodarone 150 x 1. On amiodarone gtt. Breathing with crackles, pulm suction out pink froths, given 20 Lasix x 1 U/O 200 overnight - oliguric markedly decrease u/o 12/7/35% sat 95 08/31/16 12:47 On high flow, 50L, 40% Finished 2nd bottle of oral contrast for CT abd/pelvis Will go to radiology at 2:30 [facility] afterwards HD to be followed. Notified Dr. Alcazar WBC 28, still high today. 1 BM overnight and 1 BM this afternoon, dark bilous. Sent for C diff testing again. 09/01/16 09:26 1 black BM overnight, large quantity, black, watery. Hold heparin at 3AM, restart at 7AM T 99.9 AM. procal sent Not on bipap overnight. On HFNC 40%, 50L HR 80s. suction out white floths, no pink. Add 1 u pRBC during HD today 1 non-sustained a-fib at noon, pt already on heparin. HR returned to 80s. 09/04/16 11:34 occassional A. flutter, 4:1, non-sustained 93L Bipap 1 bilous green mucoid stool overnight 09/04/16 12:42 Hold heparin for PICC PM Bipap 28/10/11/60%. RR 26. POx 95% If POx maintained, high flow NS. 09/05/16 08:37 DNI/DNR Family still want max med support Afebrile overnight WBC still trends up to 24.6 despite removal of central line CCU Objective - Vital Signs / Intake & Output Vital Signs (Last 4 hours): Vital Signs Pulse Resp BP Pulse Ox 09/05/16 08:00 107 H 27 H 126/53 L 97 09/05/16 07:15 98 H 09/05/16 07:02 102 H 30 H 97 Intake and Output (Last 8hrs): Intake & Output 09/04/16 09/05/16 09/05/16 22:59 06:59 14:59 Intake Total 388 486 Output Total 3100 125 Balance -2712 361 Weight 164 lb 3 oz Intake: IV 388 286 Right Internal Jugular 388 176 Right Upper arm 110 Other 200 Output: Urine 100 25 Urethral (Rodrigez) 100 25 Stool 100 Other 3000 Other: Voiding Method Indwelling Catheter # Bowel Movements 75 - Physical Exam Head: Positive for: Atraumatic, Normocephalic Pupils: Positive for: PERRL Extroacular Muscles: Positive for: EOMI Conjunctiva: Positive for: Other (conjunctival pallor) Mouth: Positive for: Dry Neck: Positive for: MIDLINE TENDERNESS (dressing on R neck d/c/i, shiley in [facility]) . Negative for: JVD Respiratory/Chest: Positive for: Clear to Auscultation, Rales. Negative for: Accessory Muscle Use, Retracting Cardiovascular: Positive for: Normal S1, S2, Irregular Rhythm, Tachycardic ( occasional, during HD, non-sustained). Negative for: Murmurs Abdomen: Positive for: Normal Bowel Sounds. Negative for: Tenderness, Distention, Peritoneal Signs Rectal: Positive for: Hemorrhoids (external). Negative for: Normal Rectal Tone (dilated rectal tone, soft prostate), Fissures Back: Positive for: Normal Inspection Upper Extremity: Positive for: Edema. Negative for: Erythema Lower Extremity: Positive for: Edema (2+ Pitting edema of left LE, with long healed scars; R femoral sheath removed, dressing d/c/i) Neurological: Negative for: Speech Normal (per son, slurred) Skin: Positive for: Warm, Dry, Normal Color, Abrasion (on left UE). Negative for: Rashes Psychiatric: Positive for: Other - Medications Active Medications: Active Medications Generic Name Dose Route Start Last Admin Trade Name Freq PRN Reason Stop Dose Admin Acetaminophen 650 mg 08/26/16 16:19 Tylenol 650 Mg Supp RC Q4H PRN Fever >100.4 F Arformoterol Tartrate 15 mcg 08/26/16 20:00 09/05/16 08:05 Brovana IH 15 mcg [id number] DENIZ Administration Artificial Tears 0 ml 09/01/16 12:30 09/04/16 17:42 Artificial Tears OU 1 drop Q6H DENIZ Administration Aspirin 150 mg 09/04/16 10:00 09/04/16 12:13 Aspirin Supp RC 150 mg DAILY DENIZ Administration Budesonide 0.5 mg 08/26/16 20:00 09/05/16 08:05 Pulmicort Respules IH 0.5 mg [id number] DENIZ Administration Furosemide 40 mg 08/28/16 22:00 09/02/16 12:22 Lasix IVP Not Given Q12 DENIZ Hydralazine HCl 10 mg 09/02/16 18:00 09/04/16 23:15 Apresoline PO Not Given QID DENIZ Doxycycline Hyclate 100 mg/ 100 mls @ 100 mls/hr 08/27/16 10:00 09/04/16 22: 30 Sodium Chloride IVPB 09/10/16 10:01 100 mls/hr Q12 DENIZ Administration Protocol Heparin Sodium/Sodium Chloride 250 mls @ 13.904 mls/hr 09/01/16 07:19 21:45 Heparin 55377 Units/250ml 1/2 Normal Saline IV 14 units/kg/hr .[id number] PRN 10.815 mls/hr ADJUST RATE PER PROTOCOL Titration Protocol 18 UNITS/KG/HR Meropenem 500 mg/ Sodium 100 mls @ 100 mls/hr 09/02/16 10:15 09/04/16 23:35 Chloride IVPB 09/09/16 10:16 100 mls/hr Q12 DENIZ Administration Protocol Dobutamine HCl/Dextrose 250 mls @ 5.797 mls/hr 09/02/16 10:31 09/03/16 23:55 Dobutamine/Dextrose 5% 500mg/250ml IV 5.797 mls/hr .Q24H PRN Administration TITRATE PER PROTOCOL Protocol 2.5 MCG/KG/MIN diltiaZEM IVPB 100mg in NS 100 mls @ 5 mls/hr 09/04/16 13:27 09/04/16 23:00 Cardizem 100mg In Ns IV 10 mg/hr .Q20H PRN 10 mls/hr TITRATE PER MD ORDER Administration Protocol 5 MG/HR Insulin Human Lispro 0 units 08/26/16 22:00 09/04/16 21:36 Humalog Low SC Not Given ACHS [facility] Protocol Isosorbide Dinitrate 10 mg 09/02/16 18:30 09/04/16 17:41 Isordil PO Not Given Q8H DENIZ Metoprolol Tartrate 5 mg 08/29/16 14:00 09/04/16 20:00 Lopressor IVP 5 mg Q6H DENIZ Administration Pantoprazole Sodium 40 mg 08/26/16 22:00 09/04/16 22:42 Protonix Inj IVP 40 mg Q12 DENIZ Administration Tetrahydrozoline HCl/Zinc Sulfate 0 ml 08/30/16 21:02 Visine 0.05% Opht Soln OU BID PRN Dry eyes Vitamin A 1 ea 09/04/16 22:00 09/04/16 22:42 Vitamin A & D Oint Ud Foilpak TOP 1 ea Q12 DENIZ Administration - Patient Studies Lab Studies: Microbiology Studies 09/01/16 16:40 Blood Culture - Preliminary Blood-Venous NO GROWTH AFTER 3 DAYS 09/01/16 11:48 Blood Culture - Preliminary Blood-Venous NO GROWTH AFTER 3 DAYS Lab Studies 09/05/16 09/05/16 09/05/16 Range/Units 08:09 05:50 04:40 WBC (4.5-11.0) 10^3/ul RBC (3.5-6.1) 10^6/uL Hgb (14.0-18.0) gm/dL Hct (42.0-52.0) % MCV (80.0-105.0) fL MCH (25.0-35.0) pg MCHC (31.0-37.0) g/dl RDW (11.5-14.5) % Plt Count (120.0-450.0) 10^3/uL Gran % (50.0-68.0) % Lymph % (Auto) (22.0-35.0) % [place] % (Auto) (1.0-6.0) % Eos % (Auto) (1.5-5.0) % Baso % (Auto) (0.0-3.0) % Gran # (1.4-6.5) Lymph # (1.2-3.4) [place] # (0.1-0.6) Eos # (0.0-0.7) Baso # (0.0-2.0) K/mm3 PT (9.9-11.8) Seconds INR (0.93-1.08) APTT (23.7-30.8) Seconds pCO2 29 L (35-45) mm/Hg pO2 66.0 L (80-100) mm/Hg HCO3 20.6 L (21-28) mmol/L ABG pH 7.46 H (7.35-7.45) ABG Total CO2 21.5 L (22-28) mmol.L ABG O2 Saturation 95.8 (95-98) % ABG O2 Content 15.9 (15-23) ML/dl ABG Base Excess -2.2 L (-2.0-3.0) mmol/L ABG Hemoglobin 12.1 (11.7-17.4) g/dL ABG Carboxyhemoglobin 1.7 H (0.5-1.5) % POC ABG HHb (Measured) 4.1 (0-5) % ABG Methemoglobin 1.0 (0.0-3.0) % ABG O2 Capacity 16.6 (16-24) mL/dl Hgb O2 Saturation 93.2 L (95.0-98.0) % FiO2 100.0 % Sodium 136 (132-148) mmol/L Potassium 4.0 (3.6-5.0) mmol/L Chloride 102 (95-110) mmol/L Carbon Dioxide 23 (21-33) mmol/L Anion Gap 15 (10-20) BUN 34 H (7-21) mg/dL Creatinine 2.9 H (0.5-1.4) mg/dL Est GFR ( Amer) 25 Est GFR (Non-Af Amer) 21 POC Glucose (mg/dL) 182 H (65-110) mg/dL Random Glucose 150 H (70-110) mg/dL Calcium 7.4 L (8.4-10.5) mg/dL Phosphorus 5.0 H (2.5-4.5) mg/dL Magnesium 1.9 (1.7-2.2) mg/dL Total Bilirubin 0.5 (0.2-1.3) mg/dL AST 30 (15-59) U/L ALT 35 (7-56) U/L Alkaline Phosphatase 88 (38-133) U/L Total Protein 4.8 L (5.8-8.3) g/dL Albumin 2.1 L (3.0-4.8) g/dL Globulin 2.7 gm/dL Albumin/Globulin Ratio 0.8 L (1.1-1.8) Crossmatch 09/05/16 09/05/16 09/04/16 Range/Units 04:40 04:40 21:20 WBC 24.6 H D (4.5-11.0) 10^3/ul RBC 3.59 (3.5-6.1) 10^6/uL Hgb 11.0 L (14.0-18.0) gm/dL Hct 31.5 L (42.0-52.0) % MCV 87.7 (80.0-105.0) fL MCH 30.6 (25.0-35.0) pg MCHC 34.9 (31.0-37.0) g/dl RDW 17.0 H (11.5-14.5) % Plt Count 136 (120.0-450.0) 10^3/uL Gran % 92.1 H (50.0-68.0) % Lymph % (Auto) 2.4 L (22.0-35.0) % [place] % (Auto) 5.4 (1.0-6.0) % Eos % (Auto) 0.1 L (1.5-5.0) % Baso % (Auto) 0.0 (0.0-3.0) % Gran # 22.60 H (1.4-6.5) Lymph # 0.6 L (1.2-3.4) [place] # 1.3 H (0.1-0.6) Eos # 0.0 (0.0-0.7) Baso # 0.01 (0.0-2.0) K/mm3 PT 14.0 H (9.9-11.8) Seconds INR 1.30 H (0.93-1.08) APTT 57.8 H (23.7-30.8) Seconds pCO2 (35-45) mm/Hg pO2 (80-100) mm/Hg HCO3 (21-28) mmol/L ABG pH (7.35-7.45) ABG Total CO2 (22-28) mmol.L ABG O2 Saturation (95-98) % ABG O2 Content (15-23) ML/dl ABG Base Excess (-2.0-3.0) mmol/L ABG Hemoglobin (11.7-17.4) g/dL ABG Carboxyhemoglobin (0.5-1.5) % POC ABG HHb (Measured) (0-5) % ABG Methemoglobin (0.0-3.0) % ABG O2 Capacity (16-24) mL/dl Hgb O2 Saturation (95.0-98.0) % FiO2 % Sodium (132-148) mmol/L Potassium (3.6-5.0) mmol/L Chloride (95-110) mmol/L Carbon Dioxide (21-33) mmol/L Anion Gap (10-20) BUN (7-21) mg/dL Creatinine (0.5-1.4) mg/dL Est GFR ( Amer) Est GFR (Non-Af Amer) POC Glucose (mg/dL) 155 H (65-110) mg/dL Random Glucose (70-110) mg/dL Calcium (8.4-10.5) mg/dL Phosphorus (2.5-4.5) mg/dL Magnesium (1.7-2.2) mg/dL Total Bilirubin (0.2-1.3) mg/dL AST (15-59) U/L ALT (7-56) U/L Alkaline Phosphatase (38-133) U/L Total Protein (5.8-8.3) g/dL Albumin (3.0-4.8) g/dL Globulin gm/dL Albumin/Globulin Ratio (1.1-1.8) Crossmatch 09/04/16 09/04/16 09/04/16 Range/Units 20:10 15:50 10:37 WBC (4.5-11.0) 10^3/ul RBC (3.5-6.1) 10^6/uL Hgb (14.0-18.0) gm/dL Hct (42.0-52.0) % MCV (80.0-105.0) fL MCH (25.0-35.0) pg MCHC (31.0-37.0) g/dl RDW (11.5-14.5) % Plt Count (120.0-450.0) 10^3/uL Gran % (50.0-68.0) % Lymph % (Auto) (22.0-35.0) % [place] % (Auto) (1.0-6.0) % Eos % (Auto) (1.5-5.0) % Baso % (Auto) (0.0-3.0) % Gran # (1.4-6.5) Lymph # (1.2-3.4) [place] # (0.1-0.6) Eos # (0.0-0.7) Baso # (0.0-2.0) K/mm3 PT (9.9-11.8) Seconds INR (0.93-1.08) APTT 42.0 H (23.7-30.8) Seconds pCO2 (35-45) mm/Hg pO2 (80-100) mm/Hg HCO3 (21-28) mmol/L ABG pH (7.35-7.45) ABG Total CO2 (22-28) mmol.L ABG O2 Saturation (95-98) % ABG O2 Content (15-23) ML/dl ABG Base Excess (-2.0-3.0) mmol/L ABG Hemoglobin (11.7-17.4) g/dL ABG Carboxyhemoglobin (0.5-1.5) % POC ABG HHb (Measured) (0-5) % ABG Methemoglobin (0.0-3.0) % ABG O2 Capacity (16-24) mL/dl Hgb O2 Saturation (95.0-98.0) % FiO2 % Sodium (132-148) mmol/L Potassium (3.6-5.0) mmol/L Chloride (95-110) mmol/L Carbon Dioxide (21-33) mmol/L Anion Gap (10-20) BUN (7-21) mg/dL Creatinine (0.5-1.4) mg/dL Est GFR ( Amer) Est GFR (Non-Af Amer) POC Glucose (mg/dL) 137 H 148 H (65-110) mg/dL Random Glucose (70-110) mg/dL Calcium (8.4-10.5) mg/dL Phosphorus (2.5-4.5) mg/dL Magnesium (1.7-2.2) mg/dL Total Bilirubin (0.2-1.3) mg/dL AST (15-59) U/L ALT (7-56) U/L Alkaline Phosphatase (38-133) U/L Total Protein (5.8-8.3) g/dL Albumin (3.0-4.8) g/dL Globulin gm/dL Albumin/Globulin Ratio (1.1-1.8) Crossmatch 09/01/16 Range/Units 10:50 WBC (4.5-11.0) 10^3/ul RBC (3.5-6.1) 10^6/uL Hgb (14.0-18.0) gm/dL Hct (42.0-52.0) % MCV (80.0-105.0) fL MCH (25.0-35.0) pg MCHC (31.0-37.0) g/dl RDW (11.5-14.5) % Plt Count (120.0-450.0) 10^3/uL Gran % (50.0-68.0) % Lymph % (Auto) (22.0-35.0) % [place] % (Auto) (1.0-6.0) % Eos % (Auto) (1.5-5.0) % Baso % (Auto) (0.0-3.0) % Gran # (1.4-6.5) Lymph # (1.2-3.4) [place] # (0.1-0.6) Eos # (0.0-0.7) Baso # (0.0-2.0) K/mm3 PT (9.9-11.8) Seconds INR (0.93-1.08) APTT (23.7-30.8) Seconds pCO2 (35-45) mm/Hg pO2 (80-100) mm/Hg HCO3 (21-28) mmol/L ABG pH (7.35-7.45) ABG Total CO2 (22-28) mmol.L ABG O2 Saturation (95-98) % ABG O2 Content (15-23) ML/dl ABG Base Excess (-2.0-3.0) mmol/L ABG Hemoglobin (11.7-17.4) g/dL ABG Carboxyhemoglobin (0.5-1.5) % POC ABG HHb (Measured) (0-5) % ABG Methemoglobin (0.0-3.0) % ABG O2 Capacity (16-24) mL/dl Hgb O2 Saturation (95.0-98.0) % FiO2 % Sodium (132-148) mmol/L Potassium (3.6-5.0) mmol/L Chloride (95-110) mmol/L Carbon Dioxide (21-33) mmol/L Anion Gap (10-20) BUN (7-21) mg/dL Creatinine (0.5-1.4) mg/dL Est GFR ( Amer) Est GFR (Non-Af Amer) POC Glucose (mg/dL) (65-110) mg/dL Random Glucose (70-110) mg/dL Calcium (8.4-10.5) mg/dL Phosphorus (2.5-4.5) mg/dL Magnesium (1.7-2.2) mg/dL Total Bilirubin (0.2-1.3) mg/dL AST (15-59) U/L ALT (7-56) U/L Alkaline Phosphatase (38-133) U/L Total Protein (5.8-8.3) g/dL Albumin (3.0-4.8) g/dL Globulin gm/dL Albumin/Globulin Ratio (1.1-1.8) Crossmatch See Detail Laboratory Results - last 24 hr 09/01/16 09/04/16 09/04/16 10:50 10:37 15:50 WBC RBC Hgb Hct MCV MCH MCHC RDW Plt Count Gran % Lymph % (Auto) [place] % (Auto) Eos % (Auto) Baso % (Auto) Gran # Lymph # [place] # Eos # Baso # PT INR APTT pCO2 pO2 HCO3 ABG pH ABG Total CO2 ABG O2 Saturation ABG O2 Content ABG Base Excess ABG Hemoglobin ABG Carboxyhemoglobin POC ABG HHb (Measured) ABG Methemoglobin ABG O2 Capacity Hgb O2 Saturation FiO2 Sodium Potassium Chloride Carbon Dioxide Anion Gap BUN Creatinine Est GFR ( Amer) Est GFR (Non-Af Amer) POC Glucose (mg/dL) 148 H 137 H Random Glucose Calcium Phosphorus Magnesium Total Bilirubin AST ALT Alkaline Phosphatase Total Protein Albumin Globulin Albumin/Globulin Ratio Crossmatch See Detail 09/04/16 09/04/16 09/05/16 20:10 21:20 04:40 WBC 24.6 H D RBC 3.59 Hgb 11.0 L Hct 31.5 L MCV 87.7 MCH 30.6 MCHC 34.9 RDW 17.0 H Plt Count 136 Gran % 92.1 H Lymph % (Auto) 2.4 L [place] % (Auto) 5.4 Eos % (Auto) 0.1 L Baso % (Auto) 0.0 Gran # 22.60 H Lymph # 0.6 L [place] # 1.3 H Eos # 0.0 Baso # 0.01 PT INR APTT 42.0 H pCO2 pO2 HCO3 ABG pH ABG Total CO2 ABG O2 Saturation ABG O2 Content ABG Base Excess ABG Hemoglobin ABG Carboxyhemoglobin POC ABG HHb (Measured) ABG Methemoglobin ABG O2 Capacity Hgb O2 Saturation FiO2 Sodium Potassium Chloride Carbon Dioxide Anion Gap BUN Creatinine Est GFR ( Amer) Est GFR (Non-Af Amer) POC Glucose (mg/dL) 155 H Random Glucose Calcium Phosphorus Magnesium Total Bilirubin AST ALT Alkaline Phosphatase Total Protein Albumin Globulin Albumin/Globulin Ratio Crossmatch 09/05/16 09/05/16 09/05/16 04:40 04:40 05:50 WBC RBC Hgb Hct MCV MCH MCHC RDW Plt Count Gran % Lymph % (Auto) [place] % (Auto) Eos % (Auto) Baso % (Auto) Gran # Lymph # [place] # Eos # Baso # PT 14.0 H INR 1.30 H APTT 57.8 H pCO2 29 L pO2 66.0 L HCO3 20.6 L ABG pH 7.46 H ABG Total CO2 21.5 L ABG O2 Saturation 95.8 ABG O2 Content 15.9 ABG Base Excess -2.2 L ABG Hemoglobin 12.1 ABG Carboxyhemoglobin 1.7 H POC ABG HHb (Measured) 4.1 ABG Methemoglobin 1.0 ABG O2 Capacity 16.6 Hgb O2 Saturation 93.2 L FiO2 100.0 Sodium 136 Potassium 4.0 Chloride 102 Carbon Dioxide 23 Anion Gap 15 BUN 34 H Creatinine 2.9 H Est GFR ( Amer) 25 Est GFR (Non-Af Amer) 21 POC Glucose (mg/dL) Random Glucose 150 H Calcium 7.4 L Phosphorus 5.0 H Magnesium 1.9 Total Bilirubin 0.5 AST 30 ALT 35 Alkaline Phosphatase 88 Total Protein 4.8 L Albumin 2.1 L Globulin 2.7 Albumin/Globulin Ratio 0.8 L Crossmatch 09/05/16 08:09 WBC RBC Hgb Hct MCV MCH MCHC RDW Plt Count Gran % Lymph % (Auto) [place] % (Auto) Eos % (Auto) Baso % (Auto) Gran # Lymph # [place] # Eos # Baso # PT INR APTT pCO2 pO2 HCO3 ABG pH ABG Total CO2 ABG O2 Saturation ABG O2 Content ABG Base Excess ABG Hemoglobin ABG Carboxyhemoglobin POC ABG HHb (Measured) ABG Methemoglobin ABG O2 Capacity Hgb O2 Saturation FiO2 Sodium Potassium Chloride Carbon Dioxide Anion Gap BUN Creatinine Est GFR ( Amer) Est GFR (Non-Af Amer) POC Glucose (mg/dL) 182 H Random Glucose Calcium Phosphorus Magnesium Total Bilirubin AST ALT Alkaline Phosphatase Total Protein Albumin Globulin Albumin/Globulin Ratio Crossmatch Fingerstick Blood Sugar Results: 157 Critical Care Progress Note - Nutrition Nutrition: Nutrition Category Date Time Status NPO Diet [DIET] Diets 09/04/16 Breakfast Ordered Assessment/Plan - Assessment and Plan (Free Text) Plan: 82 years old male, AAO x 3 at baseline, living alone, with CAD s/p stent on plaix and CKD stage 4, parosximal A-fib not anticoagulated, Hx stroke with L weakness > 1 yr ago, Hx chronic ITP, was found unconscious on the floor on Sunday (08/26) covered with melonic stool with maroon blood clots. Pt had worsened L weakness compared to baseline, slurred speech, and new L nathan- neglect on Good Sunday (08/25). He was admitted to ICU with massive upper GI bleed. NSTEMI is due to Type [address] Cardiac catherterization showed triple vessel disease with diffuse artheroscloerosis with no new blockage. He has CHF, acute on chronic, diastolic and systolic (EF 30s), from ischemic cardiomyopathy , on inotrop and cardizem gtt. Elevated transaminase is now resolved. Pt is now on dialysis, likely requiring long-term. He is extubated (on 08/30, and again on 09/03) for agonal breathing to compensate metabolic acidosis and pleural edema/ effusion - now on Bipap. WBC trends up to 25. Afebrile. He is on Heparin gtt for A-fib RVR with new splenic infarct. New issue: WBC trending up despite removal of central line yesterday Plan Neuro - Hx R MCA and R [employer] watershed infarct, residual L weakness, L facial droop - Lethargic, mentation improves, able to follow commands. Cardio - A-fib, new splenic infarct: s/p amiodarone gtt - Back on cardizem gtt. - CHF: on dobutamin 2.5 mcg gtt - HOLD PO MEDS (No access) Afterload reduction by hydralazine 10 QID and isosorbide dinitrate 10 q8. HOLD LASIX - Type 2 CT, NSTEMI; Hb goal in CT is Hb 10; CAD on metoprolol 5 IV q6, ASA WI, Pulm - CXR: increase infiltrate at R lung base. L infiltrate with pleural effusion - Currently, On BIPAP/ plan to switch to high flow - On Brovana, Budesonide - Goal is to decrease pulmonary support s/p dialysis - Increased secretion - Reposition, Chest PT, Duoneb PRN, Suction PRN, pulm toiletry PRN GI - Last feeding 09/03 - No active GI bleed. 1 black BM per night.0 Hb stable at 10-11. - Protonix IV BID - C.diff toxin and antigen negative - Bedside Endoscopy (08/28) showed no active bleed, barretts and PUD (1 organized healed scab, 2 clean based) no web - Chest, abdomen, pelvis w.o contrast: Proctitis - Abd u/s: Cholelithiasis with gallbladder wall thickening; small perocholecystic fluid. No sono martinez sign. Fatty liver Nephro - Dialysis. 3L fluid expected to be removed. 3K, 2.5Ca, 35 meq bicab dialysate. - Oliguric - Goal: negative fluid balance - Albumin 2, no plan to give albumin - No plan to HD today. Reassess tomorrow Endo - Hx non-IDDM - ISSS-low. - Goal blood sugar 140-180 - Avoid Kayexaltate in setting of GI bleed Heme - Hx ITP, Prosca on hold - ARACELI mg b/l negative Skin - stage 2 sacral - turn q2, air mattress, dressing, heel foams Infectious - WBC trends up to 25. RIJ central line removed already. New PICC (09/05). - Plan to remove HD catheter after talking with family. - Sputum culture (+) yeast - Merrem, Doxy, vanco PO - PNA work up: Babesia tests are negative; Mycoplasma IgM negative; urine Legionella Ag is negative - Hemorrhagic stool work up: Pending Babesia, malaria, GBM Ab, parvo B19, ANCA, mau - Negative Hep panel, HIV, - Negative ANCA - tylenol PRN Prophlaxis - heparin gtt - Protonix GI bleed dose Disposition/Prognosis - DNR/DNI - Pt still want max level of medical treatment - Will discuss comfort care. S/R/D/w Dr. Hernandez - Date & Time Date: 09/05/16 Time: 08:38 <Joby Hernandez - Last Filed: 09/05/16 12:01> CCU Objective - Vital Signs / Intake & Output Vital Signs (Last 4 hours): Vital Signs Temp Pulse Resp BP Pulse Ox 09/05/16 11:56 99.2 F 09/05/16 11:00 71 28 H 122/42 L 93 L 09/05/16 10:52 32 H 09/05/16 10:00 78 32 H 120/55 L 99 09/05/16 09:00 107 H 32 H 133/55 L 93 L Intake and Output (Last 8hrs): Intake & Output 09/04/16 09/05/16 09/05/16 22:59 06:59 14:59 Intake Total 388 486 100 Output Total 3100 125 Balance -2712 361 100 Weight 164 lb 3 oz Intake: IV 388 286 100 Right Internal Jugular 388 176 Right Upper arm 110 Other 200 Output: Urine 100 25 Urethral (Rodrigez) 100 25 Stool 100 Other 3000 Other: Voiding Method Indwelling Catheter # Bowel Movements 75 - Medications Active Medications: Active Medications Generic Name Dose Route Start Last Admin Trade Name Freq PRN Reason Stop Dose Admin Acetaminophen 650 mg 08/26/16 16:19 Tylenol 650 Mg Supp RC Q4H PRN Fever >100.4 F Arformoterol Tartrate 15 mcg 08/26/16 20:00 09/05/16 08:05 Brovana IH 15 mcg [id number] DENIZ Administration Artificial Tears 0 ml 09/01/16 12:30 09/05/16 08:39 Artificial Tears OU 1 drop Q6H DENIZ Administration Aspirin 150 mg 09/04/16 10:00 09/05/16 10:00 Aspirin Supp RC Not Given DAILY DENIZ Budesonide 0.5 mg 08/26/16 20:00 09/05/16 08:05 Pulmicort Respules IH 0.5 mg [id number] DENIZ Administration Furosemide 40 mg 08/28/16 22:00 09/02/16 12:22 Lasix IVP Not Given Q12 DNEIZ Hydralazine HCl 10 mg 09/02/16 18:00 09/05/16 10:56 Apresoline PO Not Given QID DENIZ Heparin Sodium/Sodium Chloride 250 mls @ 13.904 mls/hr 09/01/16 07:19 08:00 Heparin 01313 Units/250ml 1/2 Normal Saline IV 14 units/kg/hr .[id number] PRN 10.815 mls/hr ADJUST RATE PER PROTOCOL Administration Protocol 18 UNITS/KG/HR Meropenem 500 mg/ Sodium 100 mls @ 100 mls/hr 09/02/16 10:15 09/05/16 09:41 Chloride IVPB 09/09/16 10:16 100 mls/hr Q12 DENIZ Administration Protocol Dobutamine HCl/Dextrose 250 mls @ 5.797 mls/hr 09/02/16 10:31 09/03/16 23:55 Dobutamine/Dextrose 5% 500mg/250ml IV 5.797 mls/hr .Q24H PRN Administration TITRATE PER PROTOCOL Protocol 2.5 MCG/KG/MIN diltiaZEM IVPB 100mg in NS 100 mls @ 5 mls/hr 09/04/16 13:27 09/05/16 08:00 Cardizem 100mg In Ns IV 15 mg/hr .Q20H PRN 15 mls/hr TITRATE PER MD ORDER Administration Protocol 5 MG/HR Linezolid 600 mg in 300 mls @ 200 mls/hr 09/05/16 10:15 09/05/16 10:25 Zyvox 600mg/300ml D5w IVPB 09/12/16 10:16 200 mls/hr Q12 DENIZ Administration Protocol Insulin Human Lispro 0 units 08/26/16 22:00 09/05/16 11:54 Humalog Low SC Not Given ACHS DENIZ Protocol Isosorbide Dinitrate 10 mg 09/02/16 18:30 09/05/16 10:57 Isordil PO Not Given Q8H DENIZ Metoprolol Tartrate 5 mg 08/29/16 14:00 09/05/16 08:30 Lopressor IVP 5 mg Q6H DENIZ Administration Pantoprazole Sodium 40 mg 08/26/16 22:00 09/05/16 09:43 Protonix Inj IVP 40 mg Q12 EDNIZ Administration Tetrahydrozoline HCl/Zinc Sulfate 0 ml 08/30/16 21:02 Visine 0.05% Opht Soln OU BID PRN Dry eyes Vitamin A 1 ea 09/04/16 22:00 09/05/16 10:58 Vitamin A & D Oint Ud Foilpak TOP 1 ea Q12 DENIZ Administration - Patient Studies Lab Studies: Microbiology Studies 09/01/16 11:48 Blood Culture - Preliminary Blood-Venous NO GROWTH AFTER 4 DAYS 09/01/16 16:40 Blood Culture - Preliminary Blood-Venous NO GROWTH AFTER 3 DAYS Lab Studies 09/05/16 09/05/16 09/05/16 Range/Units 11:37 08:40 08:09 WBC (4.5-11.0) 10^3/ul RBC (3.5-6.1) 10^6/uL Hgb (14.0-18.0) gm/dL Hct (42.0-52.0) % MCV (80.0-105.0) fL MCH (25.0-35.0) pg MCHC (31.0-37.0) g/dl RDW (11.5-14.5) % Plt Count (120.0-450.0) 10^3/uL Gran % (50.0-68.0) % Lymph % (Auto) (22.0-35.0) % [place] % (Auto) (1.0-6.0) % Eos % (Auto) (1.5-5.0) % Baso % (Auto) (0.0-3.0) % Gran # (1.4-6.5) Lymph # (1.2-3.4) [place] # (0.1-0.6) Eos # (0.0-0.7) Baso # (0.0-2.0) K/mm3 PT (9.9-11.8) Seconds INR (0.93-1.08) APTT 55.9 H (23.7-30.8) Seconds pCO2 (35-45) mm/Hg pO2 (80-100) mm/Hg HCO3 (21-28) mmol/L ABG pH (7.35-7.45) ABG Total CO2 (22-28) mmol.L ABG O2 Saturation (95-98) % ABG O2 Content (15-23) ML/dl ABG Base Excess (-2.0-3.0) mmol/L ABG Hemoglobin (11.7-17.4) g/dL ABG Carboxyhemoglobin (0.5-1.5) % POC ABG HHb (Measured) (0-5) % ABG Methemoglobin (0.0-3.0) % ABG O2 Capacity (16-24) mL/dl Hgb O2 Saturation (95.0-98.0) % FiO2 % Sodium (132-148) mmol/L Potassium (3.6-5.0) mmol/L Chloride (95-110) mmol/L Carbon Dioxide (21-33) mmol/L Anion Gap (10-20) BUN (7-21) mg/dL Creatinine (0.5-1.4) mg/dL Est GFR ( Amer) Est GFR (Non-Af Amer) POC Glucose (mg/dL) 191 H 182 H (65-110) mg/dL Random Glucose (70-110) mg/dL Calcium (8.4-10.5) mg/dL Phosphorus (2.5-4.5) mg/dL Magnesium (1.7-2.2) mg/dL Total Bilirubin (0.2-1.3) mg/dL AST (15-59) U/L ALT (7-56) U/L Alkaline Phosphatase (38-133) U/L Total Protein (5.8-8.3) g/dL Albumin (3.0-4.8) g/dL Globulin gm/dL Albumin/Globulin Ratio (1.1-1.8) Crossmatch 09/05/16 09/05/16 09/05/16 Range/Units 05:50 04:40 04:40 WBC (4.5-11.0) 10^3/ul RBC (3.5-6.1) 10^6/uL Hgb (14.0-18.0) gm/dL Hct (42.0-52.0) % MCV (80.0-105.0) fL MCH (25.0-35.0) pg MCHC (31.0-37.0) g/dl RDW (11.5-14.5) % Plt Count (120.0-450.0) 10^3/uL Gran % (50.0-68.0) % Lymph % (Auto) (22.0-35.0) % [place] % (Auto) (1.0-6.0) % Eos % (Auto) (1.5-5.0) % Baso % (Auto) (0.0-3.0) % Gran # (1.4-6.5) Lymph # (1.2-3.4) [place] # (0.1-0.6) Eos # (0.0-0.7) Baso # (0.0-2.0) K/mm3 PT 14.0 H (9.9-11.8) Seconds INR 1.30 H (0.93-1.08) APTT 57.8 H (23.7-30.8) Seconds pCO2 29 L (35-45) mm/Hg pO2 66.0 L (80-100) mm/Hg HCO3 20.6 L (21-28) mmol/L ABG pH 7.46 H (7.35-7.45) ABG Total CO2 21.5 L (22-28) mmol.L ABG O2 Saturation 95.8 (95-98) % ABG O2 Content 15.9 (15-23) ML/dl ABG Base Excess -2.2 L (-2.0-3.0) mmol/L ABG Hemoglobin 12.1 (11.7-17.4) g/dL ABG Carboxyhemoglobin 1.7 H (0.5-1.5) % POC ABG HHb (Measured) 4.1 (0-5) % ABG Methemoglobin 1.0 (0.0-3.0) % ABG O2 Capacity 16.6 (16-24) mL/dl Hgb O2 Saturation 93.2 L (95.0-98.0) % FiO2 100.0 % Sodium 136 (132-148) mmol/L Potassium 4.0 (3.6-5.0) mmol/L Chloride 102 (95-110) mmol/L Carbon Dioxide 23 (21-33) mmol/L Anion Gap 15 (10-20) BUN 34 H (7-21) mg/dL Creatinine 2.9 H (0.5-1.4) mg/dL Est GFR ( Amer) 25 Est GFR (Non-Af Amer) 21 POC Glucose (mg/dL) (65-110) mg/dL Random Glucose 150 H (70-110) mg/dL Calcium 7.4 L (8.4-10.5) mg/dL Phosphorus 5.0 H (2.5-4.5) mg/dL Magnesium 1.9 (1.7-2.2) mg/dL Total Bilirubin 0.5 (0.2-1.3) mg/dL AST 30 (15-59) U/L ALT 35 (7-56) U/L Alkaline Phosphatase 88 (38-133) U/L Total Protein 4.8 L (5.8-8.3) g/dL Albumin 2.1 L (3.0-4.8) g/dL Globulin 2.7 gm/dL Albumin/Globulin Ratio 0.8 L (1.1-1.8) Crossmatch 09/05/16 09/04/16 09/04/16 Range/Units 04:40 21:20 20:10 WBC 24.6 H D (4.5-11.0) 10^3/ul RBC 3.59 (3.5-6.1) 10^6/uL Hgb 11.0 L (14.0-18.0) gm/dL Hct 31.5 L (42.0-52.0) % MCV 87.7 (80.0-105.0) fL MCH 30.6 (25.0-35.0) pg MCHC 34.9 (31.0-37.0) g/dl RDW 17.0 H (11.5-14.5) % Plt Count 136 (120.0-450.0) 10^3/uL Gran % 92.1 H (50.0-68.0) % Lymph % (Auto) 2.4 L (22.0-35.0) % [place] % (Auto) 5.4 (1.0-6.0) % Eos % (Auto) 0.1 L (1.5-5.0) % Baso % (Auto) 0.0 (0.0-3.0) % Gran # 22.60 H (1.4-6.5) Lymph # 0.6 L (1.2-3.4) [place] # 1.3 H (0.1-0.6) Eos # 0.0 (0.0-0.7) Baso # 0.01 (0.0-2.0) K/mm3 PT (9.9-11.8) Seconds INR (0.93-1.08) APTT 42.0 H (23.7-30.8) Seconds pCO2 (35-45) mm/Hg pO2 (80-100) mm/Hg HCO3 (21-28) mmol/L ABG pH (7.35-7.45) ABG Total CO2 (22-28) mmol.L ABG O2 Saturation (95-98) % ABG O2 Content (15-23) ML/dl ABG Base Excess (-2.0-3.0) mmol/L ABG Hemoglobin (11.7-17.4) g/dL ABG Carboxyhemoglobin (0.5-1.5) % POC ABG HHb (Measured) (0-5) % ABG Methemoglobin (0.0-3.0) % ABG O2 Capacity (16-24) mL/dl Hgb O2 Saturation (95.0-98.0) % FiO2 % Sodium (132-148) mmol/L Potassium (3.6-5.0) mmol/L Chloride (95-110) mmol/L Carbon Dioxide (21-33) mmol/L Anion Gap (10-20) BUN (7-21) mg/dL Creatinine (0.5-1.4) mg/dL Est GFR ( Amer) Est GFR (Non-Af Amer) POC Glucose (mg/dL) 155 H (65-110) mg/dL Random Glucose (70-110) mg/dL Calcium (8.4-10.5) mg/dL Phosphorus (2.5-4.5) mg/dL Magnesium (1.7-2.2) mg/dL Total Bilirubin (0.2-1.3) mg/dL AST (15-59) U/L ALT (7-56) U/L Alkaline Phosphatase (38-133) U/L Total Protein (5.8-8.3) g/dL Albumin (3.0-4.8) g/dL Globulin gm/dL Albumin/Globulin Ratio (1.1-1.8) Crossmatch 09/04/16 09/01/16 Range/Units 15:50 10:50 WBC (4.5-11.0) 10^3/ul RBC (3.5-6.1) 10^6/uL Hgb (14.0-18.0) gm/dL Hct (42.0-52.0) % MCV (80.0-105.0) fL MCH (25.0-35.0) pg MCHC (31.0-37.0) g/dl RDW (11.5-14.5) % Plt Count (120.0-450.0) 10^3/uL Gran % (50.0-68.0) % Lymph % (Auto) (22.0-35.0) % [place] % (Auto) (1.0-6.0) % Eos % (Auto) (1.5-5.0) % Baso % (Auto) (0.0-3.0) % Gran # (1.4-6.5) Lymph # (1.2-3.4) [place] # (0.1-0.6) Eos # (0.0-0.7) Baso # (0.0-2.0) K/mm3 PT (9.9-11.8) Seconds INR (0.93-1.08) APTT (23.7-30.8) Seconds pCO2 (35-45) mm/Hg pO2 (80-100) mm/Hg HCO3 (21-28) mmol/L ABG pH (7.35-7.45) ABG Total CO2 (22-28) mmol.L ABG O2 Saturation (95-98) % ABG O2 Content (15-23) ML/dl ABG Base Excess (-2.0-3.0) mmol/L ABG Hemoglobin (11.7-17.4) g/dL ABG Carboxyhemoglobin (0.5-1.5) % POC ABG HHb (Measured) (0-5) % ABG Methemoglobin (0.0-3.0) % ABG O2 Capacity (16-24) mL/dl Hgb O2 Saturation (95.0-98.0) % FiO2 % Sodium (132-148) mmol/L Potassium (3.6-5.0) mmol/L Chloride (95-110) mmol/L Carbon Dioxide (21-33) mmol/L Anion Gap (10-20) BUN (7-21) mg/dL Creatinine (0.5-1.4) mg/dL Est GFR ( Amer) Est GFR (Non-Af Amer) POC Glucose (mg/dL) 137 H (65-110) mg/dL Random Glucose (70-110) mg/dL Calcium (8.4-10.5) mg/dL Phosphorus (2.5-4.5) mg/dL Magnesium (1.7-2.2) mg/dL Total Bilirubin (0.2-1.3) mg/dL AST (15-59) U/L ALT (7-56) U/L Alkaline Phosphatase (38-133) U/L Total Protein (5.8-8.3) g/dL Albumin (3.0-4.8) g/dL Globulin gm/dL Albumin/Globulin Ratio (1.1-1.8) Crossmatch See Detail Laboratory Results - last 24 hr 09/01/16 09/04/16 09/04/16 10:50 15:50 20:10 WBC RBC Hgb Hct MCV MCH MCHC RDW Plt Count Gran % Lymph % (Auto) [place] % (Auto) Eos % (Auto) Baso % (Auto) Gran # Lymph # [place] # Eos # Baso # PT INR APTT 42.0 H pCO2 pO2 HCO3 ABG pH ABG Total CO2 ABG O2 Saturation ABG O2 Content ABG Base Excess ABG Hemoglobin ABG Carboxyhemoglobin POC ABG HHb (Measured) ABG Methemoglobin ABG O2 Capacity Hgb O2 Saturation FiO2 Sodium Potassium Chloride Carbon Dioxide Anion Gap BUN Creatinine Est GFR ( Amer) Est GFR (Non-Af Amer) POC Glucose (mg/dL) 137 H Random Glucose Calcium Phosphorus Magnesium Total Bilirubin AST ALT Alkaline Phosphatase Total Protein Albumin Globulin Albumin/Globulin Ratio Crossmatch See Detail 09/04/16 09/05/16 09/05/16 21:20 04:40 04:40 WBC 24.6 H D RBC 3.59 Hgb 11.0 L Hct 31.5 L MCV 87.7 MCH 30.6 MCHC 34.9 RDW 17.0 H Plt Count 136 Gran % 92.1 H Lymph % (Auto) 2.4 L [place] % (Auto) 5.4 Eos % (Auto) 0.1 L Baso % (Auto) 0.0 Gran # 22.60 H Lymph # 0.6 L [place] # 1.3 H Eos # 0.0 Baso # 0.01 PT 14.0 H INR 1.30 H APTT 57.8 H pCO2 pO2 HCO3 ABG pH ABG Total CO2 ABG O2 Saturation ABG O2 Content ABG Base Excess ABG Hemoglobin ABG Carboxyhemoglobin POC ABG HHb (Measured) ABG Methemoglobin ABG O2 Capacity Hgb O2 Saturation FiO2 Sodium Potassium Chloride Carbon Dioxide Anion Gap BUN Creatinine Est GFR ( Amer) Est GFR (Non-Af Amer) POC Glucose (mg/dL) 155 H Random Glucose Calcium Phosphorus Magnesium Total Bilirubin AST ALT Alkaline Phosphatase Total Protein Albumin Globulin Albumin/Globulin Ratio Crossmatch 09/05/16 09/05/16 09/05/16 04:40 05:50 08:09 WBC RBC Hgb Hct MCV MCH MCHC RDW Plt Count Gran % Lymph % (Auto) [place] % (Auto) Eos % (Auto) Baso % (Auto) Gran # Lymph # [place] # Eos # Baso # PT INR APTT pCO2 29 L pO2 66.0 L HCO3 20.6 L ABG pH 7.46 H ABG Total CO2 21.5 L ABG O2 Saturation 95.8 ABG O2 Content 15.9 ABG Base Excess -2.2 L ABG Hemoglobin 12.1 ABG Carboxyhemoglobin 1.7 H POC ABG HHb (Measured) 4.1 ABG Methemoglobin 1.0 ABG O2 Capacity 16.6 Hgb O2 Saturation 93.2 L FiO2 100.0 Sodium 136 Potassium 4.0 Chloride 102 Carbon Dioxide 23 Anion Gap 15 BUN 34 H Creatinine 2.9 H Est GFR ( Amer) 25 Est GFR (Non-Af Amer) 21 POC Glucose (mg/dL) 182 H Random Glucose 150 H Calcium 7.4 L Phosphorus 5.0 H Magnesium 1.9 Total Bilirubin 0.5 AST 30 ALT 35 Alkaline Phosphatase 88 Total Protein 4.8 L Albumin 2.1 L Globulin 2.7 Albumin/Globulin Ratio 0.8 L Crossmatch 09/05/16 09/05/16 08:40 11:37 WBC RBC Hgb Hct MCV MCH MCHC RDW Plt Count Gran % Lymph % (Auto) [place] % (Auto) Eos % (Auto) Baso % (Auto) Gran # Lymph # [place] # Eos # Baso # PT INR APTT 55.9 H pCO2 pO2 HCO3 ABG pH ABG Total CO2 ABG O2 Saturation ABG O2 Content ABG Base Excess ABG Hemoglobin ABG Carboxyhemoglobin POC ABG HHb (Measured) ABG Methemoglobin ABG O2 Capacity Hgb O2 Saturation FiO2 Sodium Potassium Chloride Carbon Dioxide Anion Gap BUN Creatinine Est GFR ( Amer) Est GFR (Non-Af Amer) POC Glucose (mg/dL) 191 H Random Glucose Calcium Phosphorus Magnesium Total Bilirubin AST ALT Alkaline Phosphatase Total Protein Albumin Globulin Albumin/Globulin Ratio Crossmatch Critical Care Progress Note - Nutrition Nutrition: Nutrition Category Date Time Status NPO Diet [DIET] Diets 09/04/16 Breakfast Ordered Addendum Addendum: 09/05/16 12:[address] hernandez note
[2016-09-05] MEDS: Meropenem 500 MG in Sodium Chloride 0.9% 100 ML IVPB SCH ×2 (09:41→21:23)
[2016-09-05] MEDS ORDERED: Vancomycin 1gm in NS 250ml 1 GM/250 ML BAG IVPB STA (10:10)
[2016-09-05] MEDS: Linezolid 600 mg in D5W 300 ml 600 MG/300 ML BAG IVPB SCH (10:25)
[2016-09-05] MEDS: Vitamins A & D Oint UD Foilpak TOP SCH ×2 (10:58→22:32)
--- NOTE | 2016-09-05 12:40 | PN ---
DATE: 09/05/2016 SUBJECTIVE: The patient is currently seen together with the ICU resident. He appears to be comforta ble on high flow oxygen. The patient has still not yet started on any type of nutrition. He did rec eive dialysis yesterday, 3000 mL of fluid were removed. He appears to be in negative fluid balance, so no dialysis will be necessary today. The patient continues on IV Cardizem, Dobutrex and IV antibi otics. The patient was made a DNR/DNI by his family. MEDICATIONS: Medication list reviewed. The patient is currently on hydralazine, artificial tears, a spirin, Brovana, IV Cardizem, IV Dobutrex, heparin, insulin, Isordil, Lopressor, meropenem, Protonix, Pulmicort, Tylenol p.r.n., Visine, vitamin A, and Zyvox. OBJECTIVE: INTAKE AND OUTPUT: Intake 874, output 3225. VITAL SIGNS: Blood pressure presently is 122/42, temperature 99.2, respiratory rate 28 with a pulse of 71. Oxygen saturation presently is 93%. The patient is on FIO2 of 100 with high flow nasal cannu la oxygen. HEENT: Eyes are open. Conjunctivae are pink. Sclerae are nonicteric. NECK: Supple, no neck vein distention. CHEST: Scattered rhonchi. Decreased breath sounds at the bases. No rales, no wheezing. CARDIOVASCULAR: Shows a regular S1, S2. No S3, no S4. MR/TR. No rub. ABDOMEN: Soft. Bowel sounds normal. No rebound, no guarding, no masses. EXTREMITIES: Show a puffy right upper extremity. No lower extremity edema. Diminished lower extrem ity pulses bilaterally. LABORATORY DATA AND IMAGING: CBC: White blood cell count today 24.6 with a hemoglobin of 11.0, plat elet count is 136,000. Coags show a PTT of 55.9 with a PT of 14.0. Chemistries show a BUN of 34 wit h a creatinine of 2.9 and a glucose of 150. Calcium 7.4 with an albumin of 2.1 corrects to normal. Phosphorus 5.0. Magnesium 1.9. Chest x-ray done today shows increasing infiltrate at the right lung base. No change in a more extensive infiltrate in the left lung. There is also a mild left-sided p leural effusion. Microbiology: Sputum is positive for yeast, otherwise all cultures are negative. ASSESSMENT: 1. Acute renal failure superimposed on chronic kidney disease stage IV. The patient appears to be d ialysis dependent. He remains oliguric with urine output less than 400 mL a day. As discussed with Dr. Hernandez, the berry picker, the ICU nurse and the ICU resident, I will hold dialysis today as he i s in negative fluid balance from yesterday's dialysis and he appears to be comfortable on high flow n elsy cannula oxygen. The patient will continue dialysis tomorrow and we will hopefully continue dial ysis 3 times a week acutely. 2. History of coronary artery disease, multivessel, status post cardiac catheterization. The patien t has a hypokinetic left ventricle and is receiving inotropic support with Dobutrex. 3. History of non-insulin dependent diabetes mellitus. The patient continues on sliding scale insul in. Glucose control is acceptable. 4. History of arteriosclerotic heart disease, status post recent ST myocardial infarction, cardiomyo yanet, ejection fraction 30-35%, mitral regurgitation/tricuspid regurgitation with multivessel naylor ry artery disease. The patient being managed medically and is receiving inotropic support. 5. History of sepsis, hypotension, possible aspiration pneumonia. The patient continues on IV antib iotic therapy. X-ray shows persistence of infiltrates. 6. Past history of diarrhea. This appears to have resolved. The patient is currently off vancomyci n and Flagyl. Clostridium difficile studies have been negative. 7. History of atrial fibrillation. The patient is on IV Cardizem with rate control. He remains on heparin. Heart rate is acceptable with IV Cardizem therapy. 8. History of secondary hyperparathyroidism. Phosphorus level is now back to 5.0. Corrected calciu m is normal. The patient presently is receiving no diet. Discussed with Dr. Hernandez. Perhaps if t he patient remains stable on high flow nasal cannula oxygen, the patient will be started back on tube feedings with Nepro. 9. History of anemia secondary to chronic kidney disease. Hemoglobin stable. The patient is status post receiving a total of 6 units of packed red blood cells. 10. History of respiratory failure in part secondary to volume overload in part secondary to congest luiz heart failure with cardiomyopathy. The patient has had improvement with intensive dialysis over the last several days with removal of fluid. PLAN: 1. Discussed with CCU staff in detail. Discussed with Dr. Hernandez, the CCU resident and his CCU nu rse. No dialysis planned for today. The patient remains stable on high flow nasal cannula oxygen th erapy, perhaps start NG tube feedings later in the day. 2. Continue IV antibiotic therapy. 3. Continue inotropic support with Dobutrex, continue IV Cardizem for rate control for his atrial fi brillation. 4. We will continue to support the patient with acute dialysis. We will try and dialyze him 3 times a week. Should the patient become more hypervolemic and require extra dialysis, this can always be done with a short interdialytic treatment with ultrafiltration as necessary. Greater than 35 minutes spent in the care of this patient. Maynor Malave MD cc: [id number] TT: 09/05/2016 12:40:05 Confirmation # [id number] Dictation # [id number] tn
--- NOTE | 2016-09-05 13:32 | PN ---
DATE: 09/05/2016 Seen and examined at the bedside earlier today. The patient remains lethargic. He reported to continue to have loose brown liquid stool. He has the Flexi- Seal. The patient has 100% oxygen. Awake at times, no distress. No reports of any overt GI bleeding. VITAL SIGNS: Temperature is 98.8, blood pressure is 120/55, pulse 78, respirations 32, 99% O2 saturation. LABORATORIES: WBCs 24.6, H and H is 11.0 and 31.5, platelets of 136. Sodium 136, K 4.0, BUN is 34, creatinine is 2.9, magnesium is 1.9. LFTs are within normal limits. Chest x-ray was done this morning and this shows increasing infiltrate in the right lung base. There is no change in the more extensive infiltrate in the left lung. There is also a left effusion. PHYSICAL EXAMINATION: HEENT: Sclera is anicteric. NECK: Supple. CARDIAC: S1, S2. LUNGS: With decreased breath sounds with rales. ABDOMEN: With bowel sounds, soft, not distended, nontender. EXTREMITIES: Upper and lower extremities with edema. ASSESSMENT: This is an 81-year-old male with severe anemia and gastrointestinal bleed, status post myocardial infarction with elevated troponins. The patient did have endoscopy, found to have ulcers in the upper body and antrum and in the prepyloric. Also with respiratory failure, status post extubation. Also with pulmonary edema, chronic kidney disease, end-stage renal disease on dialysis, history of atherosclerotic heart disease, status post percutaneous coronary intervention and stent placement as well as atrial fibrillation, status post splenic infarct, on heparin drip. The patient also with increasing infiltrate in the right lung base. PLAN: The patient on Cardizem drip, dobutamine drip as well as heparin drip, on IV antibiotics of Zyvox, meropenem. Continue gastrointestinal prophylaxis on Protonix. Continue to monitor H and H, which has been steady. No signs of overt gastrointestinal bleed. As per ID, pulmonology, renal and cardiology ____ _. The patient was seen and case discussed with Dr. Dillard. Breann GRIFFITH cc: [id number] TT: 09/05/2016 13:31:49 Confirmation # [id number] Dictation # [id number] en MTDD
--- NOTE | 2016-09-05 13:34 | PN ---
DATE: 09/05/2016 The patient is awake. He understands language.. PHYSICAL EXAMINATION: VITAL SIGNS: Blood pressure is 122/42, heart rate is in the 70s. NECK: Negative JVD. LUNGS: Bilateral rhonchi. HEART: Reveals S1, S2. EXTREMITIES: Without edema. LABORATORY DATA: Hemoglobin is 11.0, white count is up to 24,000. Chemistries: Glucose is 150 with a BUN and creatinine of 34 and 2.9. IMPRESSION: 1. Gastrointestinal bleed. 2. Hypotension. 3. Dilated cardiomyopathy. 4. Coronary artery disease. 5. Renal insufficiency. 6. Chronic obstructive pulmonary disease. 7. Diabetes mellitus. 8. Diffuse vasculopathy. PLAN: Given these findings, the patient is remarkably doing better on IV ionotropic therapy. His re covery will be slow. Bashir Samson MD cc: [phone] TT: 09/05/2016 13:33:46 Confirmation # [id number] Dictation # [id number] tn
--- NOTE | 2016-09-05 14:47 | CP.PCM.PN ---
Subjective - Date & Time of Evaluation Date of Evaluation: 09/05/16 Time of Evaluation: 13:00 - Subjective Subjective: Lethargic, responds to verbal stimuli. Communicating with family in Portuguese. Using high flow oxygen. Objective - Vital Signs/Intake and Output Vital Signs (last 24 hours): Temp Pulse Resp BP Pulse Ox 99.2 F 71 28 H 122/42 L 93 L 09/05/16 11:56 09/05/16 11:00 09/05/16 13:40 09/05/16 11:00 09/05/16 11:00 Intake and Output: 09/05/16 09/05/16 06:59 18:59 Intake Total 486 100 Output Total 125 Balance 361 100 - Medications Medications: Current Medications Acetaminophen (Tylenol 650 Mg Supp) 650 mg RC Q4H PRN PRN Reason: Fever >100.4 F Arformoterol Tartrate (Brovana) 15 mcg IH [id number] [facility] Last Admin: 09/05/16 08:05 Dose: 15 mcg Artificial Tears (Artificial Tears) 0 ml OU Q6H [facility] Last Admin: 09/05/16 08:39 Dose: 1 drop Aspirin (Aspirin Supp) 150 mg RC DAILY [facility] Last Admin: 09/05/16 10:00 Dose: Not Given Budesonide (Pulmicort Respules) 0.5 mg IH [id number] [facility] Last Admin: 09/05/16 08:05 Dose: 0.5 mg Furosemide (Lasix) 40 mg IVP Q12 [facility] Last Admin: 09/02/16 12:22 Dose: Not Given Hydralazine HCl (Apresoline) 10 mg PO QID [facility] Last Admin: 09/05/16 10:56 Dose: Not Given Heparin Sodium/Sodium Chloride (Heparin 24819 Units/250ml 1/2 Normal Saline) 250 mls @ 13.904 mls/hr IV .[id number] PRN; Protocol; 18 UNITS/KG/HR PRN Reason: ADJUST RATE PER PROTOCOL Last Admin: 09/05/16 08:00 Dose: 14 units/kg/hr, 10.815 mls/hr Meropenem 500 mg/ Sodium (Chloride) 100 mls @ 100 mls/hr IVPB Q12 [facility] PRN Reason: Protocol Stop: 09/09/16 10:16 Last Admin: 09/05/16 09:41 Dose: 100 mls/hr Dobutamine HCl/Dextrose (Dobutamine/Dextrose 5% 500mg/250ml) 250 mls @ 5.797 mls/hr IV .Q24H PRN; Protocol; 2.5 MCG/KG/MIN PRN Reason: TITRATE PER PROTOCOL Last Admin: 09/03/16 23:55 Dose: 5.797 mls/hr diltiaZEM IVPB 100mg in NS (Cardizem 100mg In Ns) 100 mls @ 5 mls/hr IV .Q20H PRN; Protocol; 5 MG/HR PRN Reason: TITRATE PER MD ORDER Last Admin: 09/05/16 08:00 Dose: 15 mg/hr, 15 mls/hr Linezolid (Zyvox 600mg/300ml D5w) 600 mg in 300 mls @ 200 mls/hr IVPB Q12 [facility] PRN Reason: Protocol Stop: 09/12/16 10:16 Last Admin: 09/05/16 10:25 Dose: 200 mls/hr Insulin Human Lispro (Humalog Low) 0 units SC ACHS [facility] PRN Reason: Protocol Last Admin: 09/05/16 11:54 Dose: Not Given Isosorbide Dinitrate (Isordil) 10 mg PO Q8H [facility] Last Admin: 09/05/16 10:57 Dose: Not Given Metoprolol Tartrate (Lopressor) 5 mg IVP Q6H [facility] Last Admin: 09/05/16 08:30 Dose: 5 mg Pantoprazole Sodium (Protonix Inj) 40 mg IVP Q12 [facility] Last Admin: 09/05/16 09:43 Dose: 40 mg Tetrahydrozoline HCl/Zinc Sulfate (Visine 0.05% Opht Soln) 0 ml OU BID PRN PRN Reason: Dry eyes Vitamin A (Vitamin A & D Oint Ud Foilpak) 1 ea TOP Q12 [facility] Last Admin: 09/05/16 10:58 Dose: 1 ea - Labs Labs: 09/05/16 04:40 09/05/16 04:40 PT 14.0 Seconds (9.9-11.8) H 09/05/16 04:40 INR 1.30 (0.93-1.08) H 09/05/16 04:40 APTT 55.9 Seconds (23.7-30.8) H 09/05/16 08:40 - Constitutional Appears: Chronically Ill - Head Exam Head Exam: NORMAL INSPECTION - Eye Exam Eye Exam: Normal appearance, PERRL - ENT Exam ENT Exam: Mucous Membranes Moist - Neck Exam Neck Exam: Normal Inspection - Respiratory Exam Respiratory Exam: Decreased Breath Sounds, Rhonchi - Cardiovascular Exam Cardiovascular Exam: Irregular Rhythm, +S1, +S2 - GI/Abdominal Exam GI & Abdominal Exam: Soft, Diminished Bowel Sounds - Exam Additional comments: oliguria - Neurological Exam Neurological Exam: Alert - Skin Skin Exam: Dry, Warm Additional comments: anasarca Assessment and Plan - Assessment and Plan (Free Text) Assessment: 81 year Portuguese male admitted with sepsis, respiratory failure s/p intubation, ALLYSON, non STEMI, GI bleed,atrial fibrillation. Family at bedside. Sarbjit JAY and I had discussion with patient's son, Kaylynn and his regarding goals of care. We explained the differences between comfort care(hospice) and supportive care. Benefits and burdens of longterm dialysis,artificial feeding and other supportive measures explained. Questions answered. Son wants to discuss options for care with his father. Psychosocial support given. Time spent in discussion with family regarding goals of care,advance care planning, 20 minutes. Plan: Continue current medical management, no further recommendations. Will provide psychosocial support and assistance with advance care planning
--- NOTE | 2016-09-05 15:27 | PN ---
DATE: 09/05/2016 The patient seen and examined at bedside. He is comfortable. He is following commands; however, he is still on 100% FIO2 via high flow. PHYSICAL EXAMINATION: VITAL SIGNS: His oxygen saturation 94%. His respiratory rate 20-28, heart rate 85, blood pressure 119/50. HEAD AND NECK: Atraumatic. LUNGS: Clear to auscultation bilaterally. HEART: Regular rate and rhythm. S1, S2 normal. ABDOMEN: Soft, nontender, nondistended. MUSCULOSKELETAL: Trace bilateral pedal and ankle edema. NEUROLOGIC: The patient moves all extremities spontaneously. SKIN: Moist. PSYCHIATRIC: The patient is alert and awake. LABORATORY DATA: WBC 24.6 up from 19.5, hemoglobin 11, platelet count 136. Potassium 4, chloride 102, carbon dioxide 23, BUN 34, creatinine 2.9. Glucose 150, AST 30, ALT 35. MEDICATIONS: Tylenol p.r.n., Brovana, aspirin, budesonide, Cardizem drip, dobutamine, Lasix, heparin drip, hydralazine, isosorbide dinitrate, meropenem, metoprolol, Protonix 40 mg IV q. 12, dimesylate. ASSESSMENT AND PLAN: This is an 81-year-old gentleman with hypoxemic respiratory failure requiring high flow oxygen currently on 100% FIO2 secondary to cardiogenic pulmonary edema/shock requiring inotropic support with dobutamine and complicated by multiorgan dysfunction syndrome including acute kidney injury requiring intermittent dialysis. At the present time, according to nephrology service, the patient will be on dialysis every other day with subsequent transition to 3 times a day. Maintaining negative fluid balance for some time and inotropic support is crucial for continuing his care at present time. At some point, Dobbhoff tube needs to dropped in and enteral nutrition attempted. At present time, risks and benefits of this have to be balanced as the patient is on high flow oxygen with 100% FIO2, and he is at high risk for aspiration, even though aspiration precautions are undertaken including, but not limited to head of bed elevated more than 35 degrees. We will continue to maintain blood glucose within 140-180 range according to NICE-SUGAR trial. We will continue with gastrointestinal prophylaxis. The patient is on heparin therapeutic anticoagulation. We will continue daily discussion with family to address their questions about potential comfort/palliative care versus aggressive ongoing supportive care. The patient is also on broad-spectrum antibiotics as infectious component of the patient's bilateral infiltrates cannot be ruled out at present time. ccm time 40 min Joby Hernandez MD cc: [id number] TT: 09/05/2016 15:27:14 Confirmation # [id number] Dictation # [id number] tn MTDD
--- NOTE | 2016-09-05 16:46 | CP.PCM.PN ---
Subjective - Date & Time of Evaluation Date of Evaluation: 09/05/16 Time of Evaluation: 10:45 - Subjective Subjective: Continues to be on the ventilator, poorly responsive, afebrile overnight. Objective - Vital Signs/Intake and Output Vital Signs (last 24 hours): Temp Pulse Resp BP Pulse Ox 99.2 F 71 28 H 122/42 L 93 L 09/05/16 11:56 09/05/16 11:00 09/05/16 13:40 09/05/16 11:00 09/05/16 11:00 Intake and Output: 09/05/16 09/05/16 06:59 18:59 Intake Total 486 200 Output Total 125 Balance 361 200 - Medications Medications: Current Medications Acetaminophen (Tylenol 650 Mg Supp) 650 mg RC Q4H PRN PRN Reason: Fever >100.4 F Arformoterol Tartrate (Brovana) 15 mcg IH [id number] COUNTS INCLUDE 234 BEDS AT THE [facility] Last Admin: 09/05/16 08:05 Dose: 15 mcg Artificial Tears (Artificial Tears) 0 ml OU Q6H COUNTS INCLUDE 234 BEDS AT THE [facility] Last Admin: 09/05/16 12:45 Dose: 1 drop Aspirin (Aspirin Supp) 150 mg RC DAILY COUNTS INCLUDE 234 BEDS AT THE [facility] Last Admin: 09/05/16 10:00 Dose: Not Given Budesonide (Pulmicort Respules) 0.5 mg IH [id number] COUNTS INCLUDE 234 BEDS AT THE [facility] Last Admin: 09/05/16 08:05 Dose: 0.5 mg Furosemide (Lasix) 40 mg IVP Q12 COUNTS INCLUDE 234 BEDS AT THE [facility] Last Admin: 09/02/16 12:22 Dose: Not Given Hydralazine HCl (Apresoline) 10 mg PO QID COUNTS INCLUDE 234 BEDS AT THE [facility] Last Admin: 09/05/16 14:00 Dose: Not Given Heparin Sodium/Sodium Chloride (Heparin 12718 Units/250ml 1/2 Normal Saline) 250 mls @ 13.904 mls/hr IV .[id number] PRN; Protocol; 18 UNITS/KG/HR PRN Reason: ADJUST RATE PER PROTOCOL Last Admin: 09/05/16 08:00 Dose: 14 units/kg/hr, 10.815 mls/hr Meropenem 500 mg/ Sodium (Chloride) 100 mls @ 100 mls/hr IVPB Q12 YUVAL PRN Reason: Protocol Stop: 09/09/16 10:16 Last Admin: 09/05/16 09:41 Dose: 100 mls/hr Dobutamine HCl/Dextrose (Dobutamine/Dextrose 5% 500mg/250ml) 250 mls @ 5.797 mls/hr IV .Q24H PRN; Protocol; 2.5 MCG/KG/MIN PRN Reason: TITRATE PER PROTOCOL Last Admin: 09/03/16 23:55 Dose: 5.797 mls/hr diltiaZEM IVPB 100mg in NS (Cardizem 100mg In Ns) 100 mls @ 5 mls/hr IV .Q20H PRN; Protocol; 5 MG/HR PRN Reason: TITRATE PER MD ORDER Last Admin: 09/05/16 14:59 Dose: 15 mg/hr, 15 mls/hr Linezolid (Zyvox 600mg/300ml D5w) 600 mg in 300 mls @ 200 mls/hr IVPB Q12 YUVAL PRN Reason: Protocol Stop: 09/12/16 10:16 Last Admin: 09/05/16 10:25 Dose: 200 mls/hr Insulin Human Lispro (Humalog Low) 0 units SC ACHS YUVAL PRN Reason: Protocol Last Admin: 09/05/16 11:54 Dose: Not Given Isosorbide Dinitrate (Isordil) 10 mg PO Q8H [facility] Last Admin: 09/05/16 10:57 Dose: Not Given Metoprolol Tartrate (Lopressor) 5 mg IVP Q6H COUNTS INCLUDE 234 BEDS AT THE [facility] Last Admin: 09/05/16 08:30 Dose: 5 mg Pantoprazole Sodium (Protonix Inj) 40 mg IVP Q12 [facility] Last Admin: 09/05/16 09:43 Dose: 40 mg Tetrahydrozoline HCl/Zinc Sulfate (Visine 0.05% Opht Soln) 0 ml OU BID PRN PRN Reason: Dry eyes Vitamin A (Vitamin A & D Oint Ud Foilpak) 1 ea TOP Q12 COUNTS INCLUDE 234 BEDS AT THE [facility] Last Admin: 09/05/16 10:58 Dose: 1 ea - Labs Labs: 09/05/16 04:40 09/05/16 04:40 PT 14.0 Seconds (9.9-11.8) H 09/05/16 04:40 INR 1.30 (0.93-1.08) H 09/05/16 04:40 APTT 59.2 Seconds (23.7-30.8) H 09/05/16 14:30 - Constitutional Appears: Other (Intubated, poorly responsive) - Head Exam Head Exam: NORMAL INSPECTION - ENT Exam Additional comments: ET tube in place; right and left sided central venous and HD catheters in place - Neck Exam Neck Exam: absent: Lymphadenopathy, Meningismus - Respiratory Exam Respiratory Exam: Decreased Breath Sounds - Cardiovascular Exam Cardiovascular Exam: +S1, +S2 - GI/Abdominal Exam GI & Abdominal Exam: Soft. absent: Tenderness Assessment and Plan - Assessment and Plan (Free Text) Plan: Assessment Severe sepsis with hypoxic with again ventilator-dependent respiratory failure probably secondary to now hospital-acquired pneumonia R/O aspiration pneumonitis in a patient with acute on chronic renal failure and lactic acidosis as well as possible non-ST elevation myocardial infarction with acute CHF and worsening cardiac function S/P cardiac cath with note of CAD with triple vessel disease Persistently elevated leukocytosis R/O new onset sepsis source to be determined Chronic renal failure now on hemodialysis history of cerebrovascular accident S/O left carotid endarterectomy history of immune-thrombocytopenic purpura BPH CAD Plan continue Merrem (has had 6 days of Cefepime, day 4 of Merrem); and we have changed Doxycycline to Zyvox and repeated septic work up; stool for Cdiff is negative; reviewed CT Abdomen and pelvis which did not show acute inflammation or fluid collection but did show new splenic infarcts Babesia tests are negative; Mycoplasma IgM negative; urine Legionella Ag is negative Overall prognosis is poor
[2016-09-05] MEDS ORDERED: diltiaZEM IVPB 100mg in NS 100 ML IVPB PRN (22:33)
[2016-09-05] MEDS: diltiaZEM IVPB 100mg in NS 100 ML IVPB PRN (22:48)
[2016-09-06] MEDS: Aritificial Tears (15ml) OU SCH ×4 (00:08→17:46)
[2016-09-06] MEDS: Metoprolol 1 mg/ml Inj IVP SCH ×4 (01:26→22:10)
--- NOTE | 2016-09-06 02:54 | PN ---
DATE: 09/05/2016 REFERRING PHYSICIAN: Dr. Myers. SUBJECTIVE: He is 100% high flow nasal cannula oxygen, lethargic, but arousable. Follows simple com mands, has some cough, unable to clear pulmonary secretion. No hemoptysis, no hematemesis. No melen a. Has some leg swelling. OBJECTIVE: GENERAL: On high flow oxygen, lethargic. VITAL SIGNS: Temperature is 98, heart rate is 72, respiratory rate is 25, blood pressure 116/47, pul se ox 94% on high flow nasal cannula oxygen. HEENT: Moist mucous membranes. Crowded airway. NECK: Supple. No JVD. LUNGS: Has crackles at the bases, scattered rhonchi. HEART: S1 and S2, irregular, tachycardic. ABDOMEN: Soft, nondistended. EXTREMITIES: Not much edema. NEUROLOGIC: Lethargic, arousable. MEDICATIONS: He is on hydralazine 10 mg q.i.d., artificial tears q. 6 hours, aspirin 150 mg rectally , Brovana 15 mcg inhaled twice a day, diltiazem IV drip with 15 mL per hour, also dobutamine drip, he louis is a weight-based protocol, insulin coverage, Isordil is 10 mg q. 8 hours, Lasix 40 mg q. 12 ho urs, metoprolol tartrate 5 mg IV q. 6 hours, meropenem 500 mg q. 12 hours, Protonix 40 mg daily, Pulm icort inhaled twice a day, Tylenol on a p.r.n. basis, vitamin A and D ointment to affected areas, Zyv ox 600 mg q. 12 hours. LABORATORY DATA: Shows hemoglobin 11.0, hematocrit 31.5, WBC 25,000, platelet is 136. PTT is 63. B lood gases shows pH 7.46, pCO2 of 29, O2 of 66; this is on 100% high flow nasal oxygen. Sodium 136, potassium 4.0, chloride 102, bicarbonate 23, BUN 34, creatinine 2.9, glucose 150, calcium is 7.4, yael sphorus 5.0, AST 30, ALT 35, alkaline phosphatase is 88, albumin is 2.1. Chest x-ray done today show s increased right-sided infiltrate, has bilateral infiltrates, also small left pleural effusion. IMPRESSION AND PLAN: Multiorgan dysfunction with respiratory failure requiring high flow oxygen, car diomyopathy, extensive coronary artery disease, atrial fibrillation requiring IV Cardizem, renal fail ure. Case discussed with radiology nurse. Will continue high flow oxygen. Continue dobutamine, Cardize m, broad spectrum antibiotics covering healthcare-associated organism, being followed by nephrology. Continue dialysis. Follow up ABG, chest x-ray, CBC, CMP in the morning. Critical care time was more than 35 minutes. Shawn Ruff MD cc: [id number] TT: 09/06/2016 02:53:33 Confirmation # [id number] Dictation # [id number] mn
[2016-09-06] MEDS: diltiaZEM IVPB 100mg in NS 100 ML IVPB PRN ×3 (04:42→20:13)
[2016-09-06 05:15] LABS: ARTERIAL BLOOD GAS HCO3 21.1 mmol/L (21-28); ARTERIAL BLOOD GAS O2 CAPACITY 14.7 mL/dl (16-24); ARTERIAL BLOOD GAS O2 CONTENT 14.6 ML/dl (15-23); ARTERIAL BLOOD GAS PH 7.47 (7.35-7.45); ARTERIAL BLOOD HGB O2 SAT 96.7 % (95.0-98.0); CARBOXYHEMOGLOBIN 1.6 % (0.5-1.5); METHEMOGLOBIN 0.8 % (0.0-3.0)
[2016-09-06 05:30] LABS: MEAN CORPUSCULAR HEMOGLOBIN 29.8 pg (25.0-35.0); MEAN CORPUSCULAR HGB CONC 34.7 g/dl (31.0-37.0); MEAN PLATELET VOLUME 13.8 fl (7.0-11.0); PLATELET COUNT 138 [, 10^3/uL] (120.0-450.0)
--- NOTE | 2016-09-06 05:30 | PN ---
DATE: 09/05/2016 ADDENDUM This is an addendum to the GI progress report dictated by Breann Mayfield NP. PHYSICAL EXAMINATION: The patient's family was at bedside at the time of examination. ABDOMEN: Soft, no tenderness. Patient, end-stage renal disease on hemodialysis, presently on DNR/DNI. The patient is on IV heparin . Continue with the antibiotics for lung infiltrate. The patient does have a rectal tube for diarrh ea. Stool for C. difficile has been negative. There is still possibility that cannot be ruling out. Continue the antibiotics. Repeat stool for C. diff and consider removing the rectal tube. Thank you very much for allowing us to participate in the care of the patient. Eleonora Dillard MD cc: [id number] TT: 09/06/2016 05:30:39 Confirmation # [id number] Dictation # [id number] tn
[2016-09-06 05:39] LABS: ADD MANUAL DIFF? YES
[2016-09-06 05:42] LABS: INR 1.27 (0.93-1.08); PARTIAL THROMBOPLASTIN TIME 58.5 Seconds (23.7-30.8); WHITE BLOOD COUNT 26.9 [, 10^3/ul] (4.5-11.0)
[2016-09-06 05:43] LABS: ALB/GLOB RATIO 0.8 (1.1-1.8); BILIRUBIN,TOTAL 0.7 mg/dL (0.2-1.3); CALCIUM 7.5 mg/dL (8.4-10.5); PHOSPHOROUS 5.7 mg/dL (2.5-4.5); TOTAL PROTEIN 4.8 g/dL (5.8-8.3)
--- NOTE | 2016-09-06 07:10 | CP.PCM.PN ---
Subjective - Date & Time of Evaluation Date of Evaluation: 09/05/16 Time of Evaluation: 19:00 - Subjective Subjective: Appears comfortable, family at bedside Objective - Vital Signs/Intake and Output Vital Signs (last 24 hours): Temp Pulse Resp BP Pulse Ox 98.2 F 67 22 126/49 L 100 09/06/16 04:00 09/06/16 06:00 09/06/16 06:00 09/06/16 06:00 09/06/16 06:00 Intake and Output: 09/06/16 09/06/16 06:59 18:59 Intake Total 1781 Output Total 300 Balance 1481 - Medications Medications: Current Medications Acetaminophen (Tylenol 650 Mg Supp) 650 mg RC Q4H PRN PRN Reason: Fever >100.4 F Arformoterol Tartrate (Brovana) 15 mcg IH [id number] [facility] Last Admin: 09/05/16 20:30 Dose: 15 mcg Artificial Tears (Artificial Tears) 0 ml OU Q6H [facility] Last Admin: 09/06/16 05:39 Dose: 2 drop Aspirin (Aspirin Supp) 150 mg RC DAILY [facility] Last Admin: 09/05/16 10:00 Dose: Not Given Budesonide (Pulmicort Respules) 0.5 mg IH [id number] [facility] Last Admin: 09/05/16 20:30 Dose: 0.5 mg Furosemide (Lasix) 40 mg IVP Q12 [facility] Last Admin: 09/02/16 12:22 Dose: Not Given Hydralazine HCl (Apresoline) 10 mg PO QID [facility] Last Admin: 09/05/16 22:30 Dose: Not Given Heparin Sodium/Sodium Chloride (Heparin 78616 Units/250ml 1/2 Normal Saline) 250 mls @ 13.904 mls/hr IV .[id number] PRN; Protocol; 18 UNITS/KG/HR PRN Reason: ADJUST RATE PER PROTOCOL Last Admin: 09/05/16 08:00 Dose: 14 units/kg/hr, 10.815 mls/hr Meropenem 500 mg/ Sodium (Chloride) 100 mls @ 100 mls/hr IVPB Q12 YUVAL PRN Reason: Protocol Stop: 09/09/16 10:16 Last Admin: 09/05/16 21:23 Dose: 100 mls/hr Dobutamine HCl/Dextrose (Dobutamine/Dextrose 5% 500mg/250ml) 250 mls @ 5.797 mls/hr IV .Q24H PRN; Protocol; 2.5 MCG/KG/MIN PRN Reason: TITRATE PER PROTOCOL Last Admin: 09/05/16 19:08 Dose: 2.5 mcg/kg/min, 5.797 mls/hr Linezolid (Zyvox 600mg/300ml D5w) 600 mg in 300 mls @ 200 mls/hr IVPB Q12 YUVAL PRN Reason: Protocol Stop: 09/12/16 10:16 Last Admin: 09/05/16 10:25 Dose: 200 mls/hr diltiaZEM IVPB 100mg in NS (Cardizem 100mg In Ns) 100 mls @ 15 mls/hr IVPB .Q6H40M PRN; Protocol PRN Reason: TITRATE PER MD ORDER Last Admin: 09/06/16 04:42 Dose: 15 mls/hr Insulin Human Lispro (Humalog Low) 0 units SC ACHS YUVAL PRN Reason: Protocol Last Admin: 09/05/16 22:14 Dose: Not Given Isosorbide Dinitrate (Isordil) 10 mg PO Q8H [facility] Last Admin: 09/06/16 01:41 Dose: Not Given Metoprolol Tartrate (Lopressor) 5 mg IVP Q6H [facility] Last Admin: 09/06/16 01:26 Dose: 5 mg Pantoprazole Sodium (Protonix Inj) 40 mg IVP Q12 [facility] Last Admin: 09/05/16 22:31 Dose: 40 mg Tetrahydrozoline HCl/Zinc Sulfate (Visine 0.05% Opht Soln) 0 ml OU BID PRN PRN Reason: Dry eyes Vitamin A (Vitamin A & D Oint Ud Foilpak) 1 ea TOP Q12 [facility] Last Admin: 09/05/16 22:32 Dose: 1 ea - Labs Labs: 09/06/16 05:00 09/06/16 05:00 PT 13.7 Seconds (9.9-11.8) H 09/06/16 05:00 INR 1.27 (0.93-1.08) H 09/06/16 05:00 APTT 58.5 Seconds (23.7-30.8) H 09/06/16 05:00 - Head Exam Head Exam: ATRAUMATIC - Eye Exam Eye Exam: Normal appearance - ENT Exam ENT Exam: Mucous Membranes Dry - Respiratory Exam Respiratory Exam: NORMAL BREATHING PATTERN - Cardiovascular Exam Cardiovascular Exam: +S1, +S2 - GI/Abdominal Exam GI & Abdominal Exam: Normal Bowel Sounds - Extremities Exam Extremities Exam: Pedal Edema Assessment and Plan (1) Leukocytosis Assessment & Plan: on antibiotics Status: Acute (2) Anemia Assessment & Plan: H/H improving anemia of CKD GI bleeding appears resolving Status: Acute (3) ITP (idiopathic thrombocytopenic purpura) Assessment & Plan: off Promacta given normal plt count. Status: Acute
[2016-09-06 07:14] LABS: ANISOCYTOSIS SLIGHT; HYPOCHROMIA SLIGHT; LARGE PLATELETS PRESENT; NEUTROPHIL 93 % (50.0-70.0); PLATELET ESTIMATE NORMAL (NORMAL)
[2016-09-06] MEDS: Budesonide 0.5 mg/2 ml Inhal Susp UD IH SCH ×2 (07:32→21:07)
[2016-09-06] MEDS: Arformoterol 15 mcg/2 ml Inh Sol IH SCH ×2 (07:32→21:07)
--- NOTE | 2016-09-06 08:17 | PN ---
DATE: 09/05/2016 The patient is an 81-year-old male. The patient seen and examined on 2016. The patient was seen on the bedside, lethargic. Family was around, talking in Yoruba language. He is nonverbal, but communicating with the family in his own way. Discussion was done with Dr. Ruff. No fever, no chills. The patient is not good in giving review of systems. PHYSICAL EXAMINATION: VITAL SIGNS: Temperature 99.2, pulse 71, respiratory rate 28, blood pressure 122/42, pulse oximetry noted on 3%. HEENT: Head normocephalic, atraumatic. Eyes: PERRLA. Extraocular muscles intact. Conjunctivae clear. Nose patent. Mucous membranes moist. NECK: Supple. No carotid bruits, no JVD, no thyromegaly. CHEST: Bilaterally symmetrical. HEART: S1, S2 positive. LUNGS: Clear to auscultation. ABDOMEN: Soft. Bowel sounds positive. No organomegaly. EXTREMITIES: No edema, no cyanosis. NEUROLOGIC: The patient is awake, alert, but is confused. MEDICATIONS: Brovana, artificial tears, aspirin, Pulmicort, Lasix, hydralazine , heparin, magnesium, dobutamine, diltiazem, Zyvox, insulin, isosorbide, pantoprazole, zinc sulfate, vitamin A. LABORATORIES: White blood cells 24.6, hemoglobin 11.0, hematocrit 31.5, platelets 136. Sodium 136, potassium 4.0, BUN 34, creatinine 2.9, glucose 150. ASSESSMENT AND PLAN: The patient is an 81-year-old male with leukocytosis, anemia, hyperglycemia, renal insufficiency, was admitted for sepsis, respiratory failure, status post intubation, acute kidney injury, non-ST elevation myocardial infarction, gastrointestinal bleeding, atrial fibrillation. Laura Taylor spoke to the family, son and . She explained them the difference between comfort care, hospice and supportive care. Benefits and burdens of long-term dialysis, artificial feeding and other supportive measures explained to them. All questions answered by Laura. Son wants to discuss options of care with his father. Psychosocial support provided by Laura and the social workers. Right now, continue present treatment. Length of time discussion done with Dr. Ruff. Appreciated Laura Taylor, Zurdo Pierce, Dr. Bashir Samson, Breann Mayfield, and Elzbieta's input. Will follow up. Sana Myers MD cc: [id number] TT: 09/06/2016 08:17:18 Confirmation # [id number] Dictation # [id number] en [facility] SYSTEMKallie
--- NOTE | 2016-09-06 08:32 | RAD ---
HISTORY: shortness of breath COMPARISON: 09/05/2016 FINDINGS: LUNGS: There is an increasing infiltrate in the right lung. There is improvement in the left lung infiltrate. Central lines are unchanged PLEURA: No significant pleural effusion identified, no pneumothorax apparent. CARDIOVASCULAR: Normal. OSSEOUS STRUCTURES: No significant abnormalities. VISUALIZED UPPER ABDOMEN: Normal. OTHER FINDINGS: None. IMPRESSION: Increasing infiltrate in the right lung. Decreasing infiltrate in the left lung
[2016-09-06] MEDS: Insulin Lispro (humaLOG) LOW Coverage SC SCH ×4 (08:51→23:18)
[2016-09-06] MEDS: Linezolid 600 mg in D5W 300 ml 600 MG/300 ML BAG IVPB SCH ×2 (09:52→23:18)
[2016-09-06] MEDS: Vitamins A & D Oint UD Foilpak TOP SCH ×2 (09:52→23:18)
[2016-09-06] MEDS: Meropenem 500 MG in Sodium Chloride 0.9% 100 ML IVPB SCH ×2 (09:58→23:12)
--- NOTE | 2016-09-06 11:58 | PN ---
DATE: 09/06/2016 Seen and examined at the bedside earlier this morning. The patient has face mask on at night. He is awake, but not really verbally responsive or able to fo llow commands. No acute overnight events were reported. He is still reported to have loose stool, h as the Flexi-Seal which drained about 50 mL per nursing staff. No reports of overt GI bleed. VITAL SIGNS: Temp is 98.2, blood pressure 111/40, pulse 65, respirations 28, 100 O2. LABORATORY DATA: WBC is 26.9, H and H is 10.4 and 30.0, platelets are 138. PT is 13.7, INR is 1.27, PTT is 58.5. His sodium is 136, K 4.0, BUN 52, creatinine is 3.7. LFTs are within normal limits. The patient had a chest x-ray and that shows increasing infiltrate in the right lung and decreasing i nfiltrate in the left lung. PHYSICAL EXAMINATION: HEENT: Sclerae are anicteric. NECK: Supple. CARDIAC: S1, S2. LUNGS: With scattered rhonchi. ABDOMEN: With bowel sounds, soft, nondistended, nontender on palpation. No rebound or guarding. ASSESSMENT: An 81-year-old male with severe anemia and status post gastrointestinal bleed. He also had a myocardial infarction and elevated troponins. The patient underwent endoscopy, found to have u lcers in the gastric body and antrum and also in the prepyloric. His hemoglobin has remained steady. He also is status post respiratory failure. He was extubated on high flow O2/face mask. He also h as history of end-stage renal disease on dialysis, history of atherosclerotic heart disease with hist ory of percutaneous coronary intervention and stent placement, history of splenic infarct, on heparin drip and atrial fibrillation. He also has a right infiltrate in the lung base. PLAN: Continue to monitor H and H. Also, the patient is having loose stool, although he did have st ool for C. diff sent on 09/01 which was negative. The drainage from the Flexi-Seal was only 50 mL ove rnight. Discussed with nursing staff regarding discontinuing the Flexi-Seal and obtaining stool for C. diff. We will repeat stool for C. diff. Also prolonged insertion of Flexi-Seal can cause ulcerat ions. The patient is on aspirin suppositories. He is on Cardizem drip, on dobutamine drip as well a s heparin drip, on IV antibiotics, Zyvox and meropenem. Continue Protonix and monitor for any GI ble ed. The patient was seen and case discussed with Dr. Dillard. Breann GRIFFITH cc: [id number] TT: 09/06/2016 11:57:50 Confirmation # [id number] Dictation # [id number] tn
--- NOTE | 2016-09-06 14:08 | PN ---
DATE: 09/06/2016 CARDIOLOGY FOLLOWUP The patient is lethargic, but awake and seems to understand language. PHYSICAL EXAMINATION: VITAL SIGNS: Blood pressure is 111/42. The heart rate is in the 70s. NECK: Negative JVD. LUNGS: Decreased breath sounds bilaterally. HEART: Reveals S1, S2. EXTREMITIES: Without change. LABORATORIES: Hemoglobin is 10.4. White count is 26,000. BUN and creatinine are 52 and 3.7. IMPRESSION: 1. Status post hypotension. 2. Status post respiratory failure. 3. Ischemic dilated cardiomyopathy. 4. Chronic obstructive pulmonary disease. 5. Diffuse vasculopathy. 6. Weakness. 7. Sepsis. Given these findings, I have had an extensive discussion with the patient's son. The patient is comp laining of a dry mouth. Given these poor prognoses, it would be cruel to place a NG tube or a PEG fo r feeding. Instead despite his increased risk of aspiration, we will try to start feeding the patien t small amounts at a time. I have discussed the risk of aspiration with the patient's son who is per fectly agreeable. He understands the risk of aspiration is in this patient. I think this step is mo re humane than to keep the patient n.p.o. towards his end of life. Bashir Samson MD cc: [id number] TT: 09/06/2016 14:07:10 Confirmation # [id number] Dictation # [id number] alberto
--- NOTE | 2016-09-06 16:08 | PN ---
DATE: 09/06/2016 REFERRING PHYSICIAN: Dr. Myers. Presently, the patient has noninvasive ventilation with a whole face mask. Going to be dialyzed. Llamas s leukocytosis. Septic workup is being done. He is arousable. Complaining of dry mouth. No hemopt ysis, no hematemesis, no hematuria, no diarrhea reported. OBJECTIVE: GENERAL: On noninvasive ventilation. VITAL SIGNS: Afebrile, temp is 98, heart rate is 75, respiratory rate is 22, blood pressure 111/42, pulse ox 96% on noninvasive ventilation. NECK: Supple, no JVD, dry mouth. LUNGS: Have scattered crackles and rhonchi. HEART: S1, S2. ABDOMEN: Soft, nontender. No organomegaly. EXTREMITIES: There is trace edema. NEUROLOGIC: Lethargic, arousable. MEDICATIONS: He is on hydralazine 10 mg q.i.d., Artificial Tears to both eyes, aspirin 150 mg rectal ly daily, Brovana 15 mcg inhaled twice a day, Cardizem IV drip, also dobutamine drip, heparin drip, I sordil 10 mg q. 8 hours, Lasix 40 mg q. 12 hours, metoprolol tartrate 5 mg IV q. 6 hours, meropenem 5 00 mg q. 12 hours, Protonix 40 mg twice a day, Pulmicort inhaler twice a day, Tylenol on a p.r.n. bas is, vitamin A and D ointment to affected area, Zyvox 600 mg twice a day. LABORATORY DATA: Shows hemoglobin 10.4, hematocrit 30.0, WBC 27,000, platelet is 138. INR 1.27, PTT is 59. This morning, blood gases show pH 7.47, pCO2 29, O2 111; this is on 100% oxygen on noninvasi ve ventilation. Sodium 136, potassium 4.0, chloride 102, bicarbonate 24, BUN 52, creatinine 3.7, glu cose 170, calcium is 7.5, phosphorus 5.7, magnesium is 2.0. AST 24, ALT 36, alkaline phosphatase is 75, albumin is 2.1. Chest x-ray done this morning shows bilateral interstitial infiltrates. IMPRESSION AND PLAN: Multiorgan failure, respiratory failure, on noninvasive ventilation, multilobar infiltrate, combination of pulmonary edema with pneumonia, renal failure on dialysis, atrial fibrill ation, cardiomyopathy, extensive coronary artery disease. Case discussed with medical billing coordinator. Ove rall, very poor prognosis. According to resident family is looking to get G-tube placement. Will co ntinue noninvasive ventilation. Keep head at 45 degrees. Continue dialysis. Try to make patient co mfortable. Overall grave prognosis. Follow up labs in the morning. Critical care time was more than 35 minutes. Thank you, and will follow with you. Shawn Ruff MD cc: [id number] TT: 09/06/2016 16:08:07 Confirmation # [id number] Dictation # [id number] mn
[2016-09-06] MEDS: Saliva Substitute 44.3 ML PO SCH ×2 (16:34→22:11)
--- NOTE | 2016-09-06 16:36 | PN ---
DATE: 09/06/2016 SUBJECTIVE: The patient is seen in the ICU. He is on high flow oxygen. He is receiving dialysis. PHYSICAL EXAMINATION: GENERAL: Elderly male lying in bed on high flow oxygen. VITAL SIGNS: Blood pressure 111/42, heart rate 69, respiratory rate 22, temperature 98. LUNGS: Bilateral equal air entry, equal expansion. CARDIAC: S1, S2, irregularly irregular, no murmur. ABDOMEN: Soft, nondistended. EXTREMITIES: 2+ pitting edema of the upper extremities. No lower extremity edema. ASSESSMENT AND PLAN: 1. Stable dialysis, with ultrafiltration of 1.5-2 kg. 2. Plan is to remove dialysis catheter after dialysis today. 3. The patient will require a new dialysis catheter prior to next dialysis which will be on Sunday. 4. Continue antibiotics. 5. ____. 6. Follow up cultures. Aundrea Alcazar MD cc: [id number] TT: 09/06/2016 16:35:56 Confirmation # [id number] Dictation # [id number]
--- NOTE | 2016-09-06 17:11 | CP.CCUPN ---
<Izabela Luis - Last Filed: 09/06/16 17:12> CCU Subjective - Physician Review Subjective (Free Text): 08/28/16 09:19 Intubated yesterday for abdominal agonal breath. 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, new compared echo 1 year ago 08/30/16 13:53 No Melena overnight CXR - decreased pulm edema with lasix q12 plus 100 IV x 1 HR 60s, BP 100s extubated, on NRB 12L, HR 62, POx 97, BP in high 90s 08/31/16 07:47 Overnight, Got deniz lasix. In addition lopressor x 1 for Sinus tachy at 130s. Bipap at night. This am at A-fib RVR 140s - given bicarb, amiodarone 150 x 1. On amiodarone gtt. Breathing with crackles, pulm suction out pink froths, given 20 Lasix x 1 U/O 200 overnight - oliguric markedly decrease u/o 12/7/35% sat 95 08/31/16 12:47 On high flow, 50L, 40% Finished 2nd bottle of oral contrast for CT abd/pelvis [facility] to be followed. Notified Dr. Alcazar WBC 28, still high today. 1 BM overnight and 1 BM this afternoon, dark bilous. Sent for C diff testing again. 09/01/16 09:26 1 black BM overnight, large quantity, black, watery. Hold heparin at 3AM, restart at 7AM T 99.9 AM. procal sent Not on bipap overnight. On HFNC 40%, 50L HR 80s. suction out white floths, no pink. Add 1 u pRBC during HD today 1 non-sustained a-fib at noon, pt already on heparin. HR returned to 80s. 09/04/16 11:34 occassional A. flutter, 4:1, non-sustained 93L Bipap 1 bilous green mucoid stool overnight 09/04/16 12:42 Hold heparin for PICC PM Bipap 28/10/11/60%. RR 26. POx 95% If POx maintained, high flow NS. 09/05/16 08:37 DNI/DNR Family still want max med support Afebrile overnight WBC still trends up to 24.6 despite removal of central line 09/06/16 17:07 diarrhea 50cc overnight Remove rectal tube Meet with Son, Brian moya, with Dr. Bashir Samson re: juice via straw. [place] thickened. Son understand the purpose is for pt's comfort, with high risk of choking/aspiration/worsening current respiration status. Family expressed wishes to Palliative and attending doctor yesterday that they want LTAC. Peg tube will be placed once family consent. CCU Objective - Vital Signs / Intake & Output Intake and Output (Last 8hrs): Intake & Output 09/06/16 09/06/16 09/06/16 06:59 14:59 22:59 Intake Total 481 Output Total 150 Balance 331 Intake: IV 481 Left Internal Jugular 481 Output: Urine 100 Urethral (Rodrigez) 100 Stool 50 Other: Voiding Method Indwelling Catheter - Physical Exam Head: Positive for: Atraumatic, Normocephalic Pupils: Positive for: PERRL Extroacular Muscles: Positive for: EOMI Conjunctiva: Positive for: Other (conjunctival pallor) Mouth: Positive for: Dry Neck: Positive for: MIDLINE TENDERNESS (dressing on R neck d/c/i, shiley in [facility]) . Negative for: JVD Respiratory/Chest: Positive for: Clear to Auscultation, Rales. Negative for: Accessory Muscle Use, Retracting Cardiovascular: Positive for: Normal S1, S2, Irregular Rhythm, Tachycardic ( occasional, during HD, non-sustained). Negative for: Murmurs Abdomen: Positive for: Normal Bowel Sounds. Negative for: Tenderness, Distention, Peritoneal Signs Rectal: Positive for: Hemorrhoids (external). Negative for: Normal Rectal Tone (dilated rectal tone, soft prostate), Fissures Back: Positive for: Normal Inspection Upper Extremity: Positive for: Edema. Negative for: Erythema Lower Extremity: Positive for: Edema (2+ Pitting edema of left LE, with long healed scars; R femoral sheath removed, dressing d/c/i) Neurological: Negative for: Speech Normal (per son, slurred) Skin: Positive for: Warm, Dry, Normal Color, Abrasion (on left UE). Negative for: Rashes Psychiatric: Positive for: Other - Medications Active Medications: Active Medications Generic Name Dose Route Start Last Admin Trade Name Freq PRN Reason Stop Dose Admin Acetaminophen 650 mg 08/26/16 16:19 Tylenol 650 Mg Supp RC Q4H PRN Fever >100.4 F Arformoterol Tartrate 15 mcg 08/26/16 20:00 09/06/16 07:32 Brovana IH 15 mcg [id number] DENIZ Administration Artificial Tears 0 ml 09/01/16 12:30 09/06/16 12:25 Artificial Tears OU 2 drop Q6H DENIZ Administration Aspirin 150 mg 09/04/16 10:00 09/06/16 09:51 Aspirin Supp RC 150 mg DAILY DENIZ Administration Budesonide 0.5 mg 08/26/16 20:00 09/06/16 07:32 Pulmicort Respules IH 0.5 mg [id number] DENIZ Administration Furosemide 40 mg 08/28/16 22:00 09/02/16 12:22 Lasix IVP Not Given Q12 DENIZ Hydralazine HCl 10 mg 09/02/16 18:00 09/06/16 13:23 Apresoline PO Not Given QID DENIZ Heparin Sodium/Sodium Chloride 250 mls @ 13.904 mls/hr 09/01/16 07:19 08:00 Heparin 53071 Units/250ml 1/2 Normal Saline IV 14 units/kg/hr .[id number] PRN 10.815 mls/hr ADJUST RATE PER PROTOCOL Administration Protocol 18 UNITS/KG/HR Meropenem 500 mg/ Sodium 100 mls @ 100 mls/hr 09/02/16 10:15 09/06/16 09:58 Chloride IVPB 09/09/16 10:16 100 mls/hr Q12 DENIZ Administration Protocol Dobutamine HCl/Dextrose 250 mls @ 5.797 mls/hr 09/02/16 10:31 09/05/16 19:08 Dobutamine/Dextrose 5% 500mg/250ml IV 2.5 mcg/kg/min .Q24H PRN 5.797 mls/hr TITRATE PER PROTOCOL Administration Protocol 2.5 MCG/KG/MIN Linezolid 600 mg in 300 mls @ 200 mls/hr 09/05/16 10:15 09/06/16 09:52 Zyvox 600mg/300ml D5w IVPB 09/12/16 10:16 200 mls/hr Q12 DENIZ Administration Protocol diltiaZEM IVPB 100mg in NS 100 mls @ 15 mls/hr 09/05/16 22:44 09/06/16 12:28 Cardizem 100mg In Ns IVPB 15 mls/hr .[id number] PRN Administration TITRATE PER MD ORDER Protocol Insulin Human Lispro 0 units 08/26/16 22:00 09/06/16 16:34 Humalog Low SC Not Given ACHS DENIZ Protocol Isosorbide Dinitrate 10 mg 09/02/16 18:30 09/06/16 09:55 Isordil PO Not Given Q8H DENIZ Metoprolol Tartrate 5 mg 08/29/16 14:00 09/06/16 13:24 Lopressor IVP Not Given Q6H DENIZ Pantoprazole Sodium 40 mg 08/26/16 22:00 09/06/16 09:52 Protonix Inj IVP 40 mg Q12 DENIZ Administration Saliva Substitute 0 ml 09/06/16 16:00 09/06/16 16:34 Saliva Substitute PO 1 ml Q4 DENIZ Administration Tetrahydrozoline HCl/Zinc Sulfate 0 ml 08/30/16 21:02 Visine 0.05% Opht Soln OU BID PRN Dry eyes Vitamin A 1 ea 09/04/16 22:00 09/06/16 09:52 Vitamin A & D Oint Ud Foilpak TOP 1 ea Q12 DENIZ Administration - Patient Studies Lab Studies: Microbiology Studies 09/01/16 16:40 Blood Culture - Final Blood-Venous NO GROWTH AFTER 5 DAYS Gram Stain - Final TEST NOT PERFORMED 09/05/16 15:35 Gram Stain - Final Sputum Sputum Culture - Preliminary NORMAL ORAL LISA 09/01/16 11:48 Blood Culture - Final Blood-Venous NO GROWTH AFTER 5 DAYS Gram Stain - Final TEST NOT PERFORMED 09/05/16 11:32 Blood Culture - Preliminary Blood-Venous NO GROWTH AFTER 24 HOURS 09/05/16 11:17 Blood Culture - Preliminary Blood-Venous NO GROWTH AFTER 24 HOURS Lab Studies 09/06/16 09/06/16 09/06/16 Range/Units 15:41 11:23 07:42 WBC (4.5-11.0) 10^3/ul RBC (3.5-6.1) 10^6/uL Hgb (14.0-18.0) gm/dL Hct (42.0-52.0) % MCV (80.0-105.0) fL MCH (25.0-35.0) pg MCHC (31.0-37.0) g/dl RDW (11.5-14.5) % Plt Count (120.0-450.0) 10^3/uL MPV (7.0-11.0) fl Neutrophils % (Manual) (50.0-70.0) % Lymphocytes % (Manual) (22.0-35.0) % Monocytes % (Manual) (1.0-6.0) % Platelet Evaluation (NORMAL) Large Platelets Hypochromasia Anisocytosis (manual) PT (9.9-11.8) Seconds INR (0.93-1.08) APTT (23.7-30.8) Seconds pCO2 (35-45) mm/Hg pO2 (80-100) mm/Hg HCO3 (21-28) mmol/L ABG pH (7.35-7.45) ABG Total CO2 (22-28) mmol.L ABG O2 Saturation (95-98) % ABG O2 Content (15-23) ML/dl ABG Base Excess (-2.0-3.0) mmol/L ABG Hemoglobin (11.7-17.4) g/dL ABG Carboxyhemoglobin (0.5-1.5) % POC ABG HHb (Measured) (0-5) % ABG Methemoglobin (0.0-3.0) % ABG O2 Capacity (16-24) mL/dl Hgb O2 Saturation (95.0-98.0) % FiO2 % Sodium (132-148) mmol/L Potassium (3.6-5.0) mmol/L Chloride (98-107) mmol/L Carbon Dioxide (21-33) mmol/L Anion Gap (10-20) BUN (7-21) mg/dL Creatinine (0.5-1.4) mg/dL Est GFR ( Amer) Est GFR (Non-Af Amer) POC Glucose (mg/dL) 172 H 248 H 189 H (65-110) mg/dL Random Glucose (70-110) mg/dL Calcium (8.4-10.5) mg/dL Phosphorus (2.5-4.5) mg/dL Magnesium (1.7-2.2) mg/dL Total Bilirubin (0.2-1.3) mg/dL AST (15-59) U/L ALT (7-56) U/L Alkaline Phosphatase (38-133) U/L Total Protein (5.8-8.3) g/dL Albumin (3.0-4.8) g/dL Globulin gm/dL Albumin/Globulin Ratio (1.1-1.8) 09/06/16 09/06/16 09/06/16 Range/Units 05:00 05:00 05:00 WBC (4.5-11.0) 10^3/ul RBC (3.5-6.1) 10^6/uL Hgb (14.0-18.0) gm/dL Hct (42.0-52.0) % MCV (80.0-105.0) fL MCH (25.0-35.0) pg MCHC (31.0-37.0) g/dl RDW (11.5-14.5) % Plt Count (120.0-450.0) 10^3/uL MPV (7.0-11.0) fl Neutrophils % (Manual) (50.0-70.0) % Lymphocytes % (Manual) (22.0-35.0) % Monocytes % (Manual) (1.0-6.0) % Platelet Evaluation (NORMAL) Large Platelets Hypochromasia Anisocytosis (manual) PT 13.7 H (9.9-11.8) Seconds INR 1.27 H (0.93-1.08) APTT 58.5 H (23.7-30.8) Seconds pCO2 29 L (35-45) mm/Hg pO2 111.0 H (80-100) mm/Hg HCO3 21.1 (21-28) mmol/L ABG pH 7.47 H (7.35-7.45) ABG Total CO2 22.0 (22-28) mmol.L ABG O2 Saturation 99.0 H (95-98) % ABG O2 Content 14.6 L (15-23) ML/dl ABG Base Excess -1.8 (-2.0-3.0) mmol/L ABG Hemoglobin 10.6 L (11.7-17.4) g/dL ABG Carboxyhemoglobin 1.6 H (0.5-1.5) % POC ABG HHb (Measured) 1.0 (0-5) % ABG Methemoglobin 0.8 (0.0-3.0) % ABG O2 Capacity 14.7 L (16-24) mL/dl Hgb O2 Saturation 96.7 (95.0-98.0) % FiO2 100.0 % Sodium 136 (132-148) mmol/L Potassium 4.0 (3.6-5.0) mmol/L Chloride 102 (98-107) mmol/L Carbon Dioxide 24 (21-33) mmol/L Anion Gap 14 (10-20) BUN 52 H (7-21) mg/dL Creatinine 3.7 H (0.5-1.4) mg/dL Est GFR ( Amer) 19 Est GFR (Non-Af Amer) 16 POC Glucose (mg/dL) (65-110) mg/dL Random Glucose 170 H (70-110) mg/dL Calcium 7.5 L (8.4-10.5) mg/dL Phosphorus 5.7 H (2.5-4.5) mg/dL Magnesium 2.0 (1.7-2.2) mg/dL Total Bilirubin 0.7 (0.2-1.3) mg/dL AST 24 (15-59) U/L ALT 36 (7-56) U/L Alkaline Phosphatase 75 (38-133) U/L Total Protein 4.8 L (5.8-8.3) g/dL Albumin 2.1 L (3.0-4.8) g/dL Globulin 2.7 gm/dL Albumin/Globulin Ratio 0.8 L (1.1-1.8) 09/06/16 09/05/16 Range/Units 05:00 20:30 WBC 26.9 H* (4.5-11.0) 10^3/ul RBC 3.49 L (3.5-6.1) 10^6/uL Hgb 10.4 L (14.0-18.0) gm/dL Hct 30.0 L (42.0-52.0) % MCV 86.0 (80.0-105.0) fL MCH 29.8 (25.0-35.0) pg MCHC 34.7 (31.0-37.0) g/dl RDW 17.0 H (11.5-14.5) % Plt Count 138 (120.0-450.0) 10^3/uL MPV 13.8 H (7.0-11.0) fl Neutrophils % (Manual) 93 H (50.0-70.0) % Lymphocytes % (Manual) 3 L (22.0-35.0) % Monocytes % (Manual) 4 (1.0-6.0) % Platelet Evaluation Normal (NORMAL) Large Platelets Present Hypochromasia Slight Anisocytosis (manual) Slight PT (9.9-11.8) Seconds INR (0.93-1.08) APTT 63.2 H (23.7-30.8) Seconds pCO2 (35-45) mm/Hg pO2 (80-100) mm/Hg HCO3 (21-28) mmol/L ABG pH (7.35-7.45) ABG Total CO2 (22-28) mmol.L ABG O2 Saturation (95-98) % ABG O2 Content (15-23) ML/dl ABG Base Excess (-2.0-3.0) mmol/L ABG Hemoglobin (11.7-17.4) g/dL ABG Carboxyhemoglobin (0.5-1.5) % POC ABG HHb (Measured) (0-5) % ABG Methemoglobin (0.0-3.0) % ABG O2 Capacity (16-24) mL/dl Hgb O2 Saturation (95.0-98.0) % FiO2 % Sodium (132-148) mmol/L Potassium (3.6-5.0) mmol/L Chloride (98-107) mmol/L Carbon Dioxide (21-33) mmol/L Anion Gap (10-20) BUN (7-21) mg/dL Creatinine (0.5-1.4) mg/dL Est GFR ( Amer) Est GFR (Non-Af Amer) POC Glucose (mg/dL) (65-110) mg/dL Random Glucose (70-110) mg/dL Calcium (8.4-10.5) mg/dL Phosphorus (2.5-4.5) mg/dL Magnesium (1.7-2.2) mg/dL Total Bilirubin (0.2-1.3) mg/dL AST (15-59) U/L ALT (7-56) U/L Alkaline Phosphatase (38-133) U/L Total Protein (5.8-8.3) g/dL Albumin (3.0-4.8) g/dL Globulin gm/dL Albumin/Globulin Ratio (1.1-1.8) Laboratory Results - last 24 hr 09/05/16 09/06/16 09/06/16 20:30 05:00 05:00 WBC 26.9 H* RBC 3.49 L Hgb 10.4 L Hct 30.0 L MCV 86.0 MCH 29.8 MCHC 34.7 RDW 17.0 H Plt Count 138 MPV 13.8 H Neutrophils % (Manual) 93 H Lymphocytes % (Manual) 3 L Monocytes % (Manual) 4 Platelet Evaluation Normal Large Platelets Present Hypochromasia Slight Anisocytosis (manual) Slight PT 13.7 H INR 1.27 H APTT 63.2 H 58.5 H pCO2 pO2 HCO3 ABG pH ABG Total CO2 ABG O2 Saturation ABG O2 Content ABG Base Excess ABG Hemoglobin ABG Carboxyhemoglobin POC ABG HHb (Measured) ABG Methemoglobin ABG O2 Capacity Hgb O2 Saturation FiO2 Sodium Potassium Chloride Carbon Dioxide Anion Gap BUN Creatinine Est GFR ( Amer) Est GFR (Non-Af Amer) POC Glucose (mg/dL) Random Glucose Calcium Phosphorus Magnesium Total Bilirubin AST ALT Alkaline Phosphatase Total Protein Albumin Globulin Albumin/Globulin Ratio 04/26/17 04/26/17 04/26/17 05:00 05:00 07:42 WBC RBC Hgb Hct MCV MCH MCHC RDW Plt Count MPV Neutrophils % (Manual) Lymphocytes % (Manual) Monocytes % (Manual) Platelet Evaluation Large Platelets Hypochromasia Anisocytosis (manual) PT INR APTT pCO2 29 L pO2 111.0 H HCO3 21.1 ABG pH 7.47 H ABG Total CO2 22.0 ABG O2 Saturation 99.0 H ABG O2 Content 14.6 L ABG Base Excess -1.8 ABG Hemoglobin 10.6 L ABG Carboxyhemoglobin 1.6 H POC ABG HHb (Measured) 1.0 ABG Methemoglobin 0.8 ABG O2 Capacity 14.7 L Hgb O2 Saturation 96.7 FiO2 100.0 Sodium 136 Potassium 4.0 Chloride 102 Carbon Dioxide 24 Anion Gap 14 BUN 52 H Creatinine 3.7 H Est GFR ( Amer) 19 Est GFR (Non-Af Amer) 16 POC Glucose (mg/dL) 189 H Random Glucose 170 H Calcium 7.5 L Phosphorus 5.7 H Magnesium 2.0 Total Bilirubin 0.7 AST 24 ALT 36 Alkaline Phosphatase 75 Total Protein 4.8 L Albumin 2.1 L Globulin 2.7 Albumin/Globulin Ratio 0.8 L 09/06/16 09/06/16 11:23 15:41 WBC RBC Hgb Hct MCV MCH MCHC RDW Plt Count MPV Neutrophils % (Manual) Lymphocytes % (Manual) Monocytes % (Manual) Platelet Evaluation Large Platelets Hypochromasia Anisocytosis (manual) PT INR APTT pCO2 pO2 HCO3 ABG pH ABG Total CO2 ABG O2 Saturation ABG O2 Content ABG Base Excess ABG Hemoglobin ABG Carboxyhemoglobin POC ABG HHb (Measured) ABG Methemoglobin ABG O2 Capacity Hgb O2 Saturation FiO2 Sodium Potassium Chloride Carbon Dioxide Anion Gap BUN Creatinine Est GFR ( Amer) Est GFR (Non-Af Amer) POC Glucose (mg/dL) 248 H 172 H Random Glucose Calcium Phosphorus Magnesium Total Bilirubin AST ALT Alkaline Phosphatase Total Protein Albumin Globulin Albumin/Globulin Ratio Fingerstick Blood Sugar Results: 215 Critical Care Progress Note - Nutrition Nutrition: Nutrition Category Date Time Status NPO Diet [DIET] Diets 09/04/16 Breakfast Ordered Assessment/Plan - Assessment and Plan (Free Text) Plan: 82 years old male, AAO x 3 at baseline, living alone, with CAD s/p stent on plaix and CKD stage 4, parosximal A-fib not anticoagulated, Hx stroke with L weakness > 1 yr ago, Hx chronic ITP, was found unconscious on the floor on Sunday (08/26) covered with melonic stool with maroon blood clots. Pt had worsened L weakness compared to baseline, slurred speech, and new L nathan- neglect on Good Sunday (08/25). He was admitted to ICU with massive upper GI bleed. NSTEMI is due to Type [address] Cardiac catherterization showed triple vessel disease with diffuse artheroscloerosis with no new blockage. Not CABG candidate. He has CHF, acute on chronic, diastolic and systolic (EF 30s), from ischemic cardiomyopathy, on inotrop and cardizem gtt. Elevated transaminase is now resolved. Pt is now on dialysis, likely requiring long-term. He is extubated (on 08/30, and again on 09/03) for agonal breathing to compensate metabolic acidosis and pleural edema/effusion - now on Bipap. WBC trends up to 27. Afebrile. New diarrhea (50 cc overnight). C.diff sent today. Central line was out and got New PICC. Blood culture drawn from [facility] after dialysis today. He is on Heparin gtt for A-fib RVR with new splenic infarct. 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 - Family consent to feeding pt with nectar thickened liquid via straw. Family understand the risk of worsening current respiratory status and consequence of mortality. Cardio - A-fib, new splenic infarct: s/p amiodarone gtt - Back on cardizem gtt. - CHF: on dobutamin 2.5 mcg gtt - HOLD PO MEDS (No access) Afterload reduction by hydralazine 10 QID and isosorbide dinitrate 10 q8. HOLD LASIX - Type 2 CT, NSTEMI; Hb goal in CT is Hb 10; CAD on metoprolol 5 IV q6, ASA DE, Pulm - CXR: increase infiltrate at R lung base. L infiltrate with pleural effusion - Currently, On BIPAP/ plan to switch to high flow - On Brovana, Budesonide - Goal is to decrease pulmonary support s/p dialysis - Increased secretion - Reposition, Chest PT, Duoneb PRN, Suction PRN, pulm toiletry PRN GI - Pending - Swallow eval. - No active GI bleed. - Protonix IV BID - Diarrhea seen on rectal tube. C diff sent again. prior specimen negative - Bedside Endoscopy (08/28) showed no active bleed, barretts and PUD (1 organized healed scab, 2 clean based) no web - Chest, abdomen, pelvis w.o contrast: Proctitis - Abd u/s: Cholelithiasis with gallbladder wall thickening; small perocholecystic fluid. No sono martinez sign. Fatty liver Nephro - 3-hr Dialysis today. 2 L fluid expected to be removed. - Oliguric - Goal: negative fluid balance - Albumin 2, no plan to give albumin Endo - Hx non-IDDM - ISSS-low. - Goal blood sugar 140-180 - Avoid Kayexaltate in setting of GI bleed Heme - Hx ITP, Prosca on hold - LE dupplers b/l negative Skin - stage 2 sacral - turn q2, air mattress, dressing, heel foams Infectious - WBC trends up to 25. RIJ central line removed already. New PICC (09/05). - Pending blood culture drawn from [facility]. - Sputum culture (+) yeast - Merrem, Doxy, vanco PO - C. diff sent again. No sign of phlebitis on lines Prophlaxis - heparin gtt - Protonix GI bleed dose Disposition/Prognosis - DNR/DNI - Pt still want max level of medical treatment - POA agrees with LTAC - Pending consent to peg tube. S/R/D/w Dr. Lizzie Rouse - Date & Time Date: 09/06/16 Time: 17:11 <Nasim PHILIP[facility] - Last Filed: 09/06/16 17:44> CCU Objective - Vital Signs / Intake & Output Intake and Output (Last 8hrs): Intake & Output 09/06/16 09/06/16 09/06/16 06:59 14:59 22:59 Intake Total 481 Output Total 150 Balance 331 Intake: IV 481 Left Internal Jugular 481 Output: Urine 100 Urethral (Rodrigez) 100 Stool 50 Other: Voiding Method Indwelling Catheter - Medications Active Medications: Active Medications Generic Name Dose Route Start Last Admin Trade Name Freq PRN Reason Stop Dose Admin Acetaminophen 650 mg 08/26/16 16:19 Tylenol 650 Mg Supp RC Q4H PRN Fever >100.4 F Arformoterol Tartrate 15 mcg 08/26/16 20:00 09/06/16 07:32 Brovana IH 15 mcg [id number] DENIZ Administration Artificial Tears 0 ml 09/01/16 12:30 09/06/16 12:25 Artificial Tears OU 2 drop Q6H DENIZ Administration Aspirin 150 mg 09/04/16 10:00 09/06/16 09:51 Aspirin Supp RC 150 mg DAILY DENIZ Administration Budesonide 0.5 mg 08/26/16 20:00 09/06/16 07:32 Pulmicort Respules IH 0.5 mg [id number] DENIZ Administration Furosemide 40 mg 08/28/16 22:00 09/02/16 12:22 Lasix IVP Not Given Q12 DENIZ Hydralazine HCl 10 mg 09/02/16 18:00 09/06/16 13:23 Apresoline PO Not Given QID DENIZ Heparin Sodium/Sodium Chloride 250 mls @ 13.904 mls/hr 09/01/16 07:19 08:00 Heparin 53065 Units/250ml 1/2 Normal Saline IV 14 units/kg/hr .[id number] PRN 10.815 mls/hr ADJUST RATE PER PROTOCOL Administration Protocol 18 UNITS/KG/HR Meropenem 500 mg/ Sodium 100 mls @ 100 mls/hr 09/02/16 10:15 09/06/16 09:58 Chloride IVPB 09/09/16 10:16 100 mls/hr Q12 DENIZ Administration Protocol Dobutamine HCl/Dextrose 250 mls @ 5.797 mls/hr 09/02/16 10:31 09/05/16 19:08 Dobutamine/Dextrose 5% 500mg/250ml IV 2.5 mcg/kg/min .Q24H PRN 5.797 mls/hr TITRATE PER PROTOCOL Administration Protocol 2.5 MCG/KG/MIN Linezolid 600 mg in 300 mls @ 200 mls/hr 09/05/16 10:15 09/06/16 09:52 Zyvox 600mg/300ml D5w IVPB 09/12/16 10:16 200 mls/hr Q12 DENIZ Administration Protocol diltiaZEM IVPB 100mg in NS 100 mls @ 15 mls/hr 09/05/16 22:44 09/06/16 12:28 Cardizem 100mg In Ns IVPB 15 mls/hr .Q6H40M PRN Administration TITRATE PER MD ORDER Protocol Insulin Human Lispro 0 units 08/26/16 22:00 09/06/16 16:34 Humalog Low SC Not Given ACHS DENIZ Protocol Isosorbide Dinitrate 10 mg 09/02/16 18:30 09/06/16 09:55 Isordil PO Not Given Q8H DENIZ Metoprolol Tartrate 5 mg 08/29/16 14:00 09/06/16 13:24 Lopressor IVP Not Given Q6H DENIZ Pantoprazole Sodium 40 mg 08/26/16 22:00 09/06/16 09:52 Protonix Inj IVP 40 mg Q12 DENIZ Administration Saliva Substitute 0 ml 09/06/16 16:00 09/06/16 16:34 Saliva Substitute PO 1 ml Q4 DENIZ Administration Tetrahydrozoline HCl/Zinc Sulfate 0 ml 08/30/16 21:02 Visine 0.05% Opht Soln OU BID PRN Dry eyes Vitamin A 1 ea 09/04/16 22:00 09/06/16 09:52 Vitamin A & D Oint Ud Foilpak TOP 1 ea Q12 DENIZ Administration - Patient Studies Lab Studies: Microbiology Studies 09/01/16 16:40 Blood Culture - Final Blood-Venous NO GROWTH AFTER 5 DAYS Gram Stain - Final TEST NOT PERFORMED 09/05/16 15:35 Gram Stain - Final Sputum Sputum Culture - Preliminary NORMAL ORAL LISA 09/01/16 11:48 Blood Culture - Final Blood-Venous NO GROWTH AFTER 5 DAYS Gram Stain - Final TEST NOT PERFORMED 09/05/16 11:32 Blood Culture - Preliminary Blood-Venous NO GROWTH AFTER 24 HOURS 09/05/16 11:17 Blood Culture - Preliminary Blood-Venous NO GROWTH AFTER 24 HOURS Lab Studies 09/06/16 09/06/16 09/06/16 Range/Units 15:41 11:23 07:42 WBC (4.5-11.0) 10^3/ul RBC (3.5-6.1) 10^6/uL Hgb (14.0-18.0) gm/dL Hct (42.0-52.0) % MCV (80.0-105.0) fL MCH (25.0-35.0) pg MCHC (31.0-37.0) g/dl RDW (11.5-14.5) % Plt Count (120.0-450.0) 10^3/uL MPV (7.0-11.0) fl Neutrophils % (Manual) (50.0-70.0) % Lymphocytes % (Manual) (22.0-35.0) % Monocytes % (Manual) (1.0-6.0) % Platelet Evaluation (NORMAL) Large Platelets Hypochromasia Anisocytosis (manual) PT (9.9-11.8) Seconds INR (0.93-1.08) APTT (23.7-30.8) Seconds pCO2 (35-45) mm/Hg pO2 (80-100) mm/Hg HCO3 (21-28) mmol/L ABG pH (7.35-7.45) ABG Total CO2 (22-28) mmol.L ABG O2 Saturation (95-98) % ABG O2 Content (15-23) ML/dl ABG Base Excess (-2.0-3.0) mmol/L ABG Hemoglobin (11.7-17.4) g/dL ABG Carboxyhemoglobin (0.5-1.5) % POC ABG HHb (Measured) (0-5) % ABG Methemoglobin (0.0-3.0) % ABG O2 Capacity (16-24) mL/dl Hgb O2 Saturation (95.0-98.0) % FiO2 % Sodium (132-148) mmol/L Potassium (3.6-5.0) mmol/L Chloride (98-107) mmol/L Carbon Dioxide (21-33) mmol/L Anion Gap (10-20) BUN (7-21) mg/dL Creatinine (0.5-1.4) mg/dL Est GFR ( Amer) Est GFR (Non-Af Amer) POC Glucose (mg/dL) 172 H 248 H 189 H (65-110) mg/dL Random Glucose (70-110) mg/dL Calcium (8.4-10.5) mg/dL Phosphorus (2.5-4.5) mg/dL Magnesium (1.7-2.2) mg/dL Total Bilirubin (0.2-1.3) mg/dL AST (15-59) U/L ALT (7-56) U/L Alkaline Phosphatase (38-133) U/L Total Protein (5.8-8.3) g/dL Albumin (3.0-4.8) g/dL Globulin gm/dL Albumin/Globulin Ratio (1.1-1.8) 09/06/16 09/06/16 09/06/16 Range/Units 05:00 05:00 05:00 WBC (4.5-11.0) 10^3/ul RBC (3.5-6.1) 10^6/uL Hgb (14.0-18.0) gm/dL Hct (42.0-52.0) % MCV (80.0-105.0) fL MCH (25.0-35.0) pg MCHC (31.0-37.0) g/dl RDW (11.5-14.5) % Plt Count (120.0-450.0) 10^3/uL MPV (7.0-11.0) fl Neutrophils % (Manual) (50.0-70.0) % Lymphocytes % (Manual) (22.0-35.0) % Monocytes % (Manual) (1.0-6.0) % Platelet Evaluation (NORMAL) Large Platelets Hypochromasia Anisocytosis (manual) PT 13.7 H (9.9-11.8) Seconds INR 1.27 H (0.93-1.08) APTT 58.5 H (23.7-30.8) Seconds pCO2 29 L (35-45) mm/Hg pO2 111.0 H (80-100) mm/Hg HCO3 21.1 (21-28) mmol/L ABG pH 7.47 H (7.35-7.45) ABG Total CO2 22.0 (22-28) mmol.L ABG O2 Saturation 99.0 H (95-98) % ABG O2 Content 14.6 L (15-23) ML/dl ABG Base Excess -1.8 (-2.0-3.0) mmol/L ABG Hemoglobin 10.6 L (11.7-17.4) g/dL ABG Carboxyhemoglobin 1.6 H (0.5-1.5) % POC ABG HHb (Measured) 1.0 (0-5) % ABG Methemoglobin 0.8 (0.0-3.0) % ABG O2 Capacity 14.7 L (16-24) mL/dl Hgb O2 Saturation 96.7 (95.0-98.0) % FiO2 100.0 % Sodium 136 (132-148) mmol/L Potassium 4.0 (3.6-5.0) mmol/L Chloride 102 (98-107) mmol/L Carbon Dioxide 24 (21-33) mmol/L Anion Gap 14 (10-20) BUN 52 H (7-21) mg/dL Creatinine 3.7 H (0.5-1.4) mg/dL Est GFR ( Amer) 19 Est GFR (Non-Af Amer) 16 POC Glucose (mg/dL) (65-110) mg/dL Random Glucose 170 H (70-110) mg/dL Calcium 7.5 L (8.4-10.5) mg/dL Phosphorus 5.7 H (2.5-4.5) mg/dL Magnesium 2.0 (1.7-2.2) mg/dL Total Bilirubin 0.7 (0.2-1.3) mg/dL AST 24 (15-59) U/L ALT 36 (7-56) U/L Alkaline Phosphatase 75 (38-133) U/L Total Protein 4.8 L (5.8-8.3) g/dL Albumin 2.1 L (3.0-4.8) g/dL Globulin 2.7 gm/dL Albumin/Globulin Ratio 0.8 L (1.1-1.8) 09/06/16 09/05/16 Range/Units 05:00 20:30 WBC 26.9 H* (4.5-11.0) 10^3/ul RBC 3.49 L (3.5-6.1) 10^6/uL Hgb 10.4 L (14.0-18.0) gm/dL Hct 30.0 L (42.0-52.0) % MCV 86.0 (80.0-105.0) fL MCH 29.8 (25.0-35.0) pg MCHC 34.7 (31.0-37.0) g/dl RDW 17.0 H (11.5-14.5) % Plt Count 138 (120.0-450.0) 10^3/uL MPV 13.8 H (7.0-11.0) fl Neutrophils % (Manual) 93 H (50.0-70.0) % Lymphocytes % (Manual) 3 L (22.0-35.0) % Monocytes % (Manual) 4 (1.0-6.0) % Platelet Evaluation Normal (NORMAL) Large Platelets Present Hypochromasia Slight Anisocytosis (manual) Slight PT (9.9-11.8) Seconds INR (0.93-1.08) APTT 63.2 H (23.7-30.8) Seconds pCO2 (35-45) mm/Hg pO2 (80-100) mm/Hg HCO3 (21-28) mmol/L ABG pH (7.35-7.45) ABG Total CO2 (22-28) mmol.L ABG O2 Saturation (95-98) % ABG O2 Content (15-23) ML/dl ABG Base Excess (-2.0-3.0) mmol/L ABG Hemoglobin (11.7-17.4) g/dL ABG Carboxyhemoglobin (0.5-1.5) % POC ABG HHb (Measured) (0-5) % ABG Methemoglobin (0.0-3.0) % ABG O2 Capacity (16-24) mL/dl Hgb O2 Saturation (95.0-98.0) % FiO2 % Sodium (132-148) mmol/L Potassium (3.6-5.0) mmol/L Chloride (98-107) mmol/L Carbon Dioxide (21-33) mmol/L Anion Gap (10-20) BUN (7-21) mg/dL Creatinine (0.5-1.4) mg/dL Est GFR ( Amer) Est GFR (Non-Af Amer) POC Glucose (mg/dL) (65-110) mg/dL Random Glucose (70-110) mg/dL Calcium (8.4-10.5) mg/dL Phosphorus (2.5-4.5) mg/dL Magnesium (1.7-2.2) mg/dL Total Bilirubin (0.2-1.3) mg/dL AST (15-59) U/L ALT (7-56) U/L Alkaline Phosphatase (38-133) U/L Total Protein (5.8-8.3) g/dL Albumin (3.0-4.8) g/dL Globulin gm/dL Albumin/Globulin Ratio (1.1-1.8) Laboratory Results - last 24 hr 09/05/16 09/06/16 09/06/16 20:30 05:00 05:00 WBC 26.9 H* RBC 3.49 L Hgb 10.4 L Hct 30.0 L MCV 86.0 MCH 29.8 MCHC 34.7 RDW 17.0 H Plt Count 138 MPV 13.8 H Neutrophils % (Manual) 93 H Lymphocytes % (Manual) 3 L Monocytes % (Manual) 4 Platelet Evaluation Normal Large Platelets Present Hypochromasia Slight Anisocytosis (manual) Slight PT 13.7 H INR 1.27 H APTT 63.2 H 58.5 H pCO2 pO2 HCO3 ABG pH ABG Total CO2 ABG O2 Saturation ABG O2 Content ABG Base Excess ABG Hemoglobin ABG Carboxyhemoglobin POC ABG HHb (Measured) ABG Methemoglobin ABG O2 Capacity Hgb O2 Saturation FiO2 Sodium Potassium Chloride Carbon Dioxide Anion Gap BUN Creatinine Est GFR ( Amer) Est GFR (Non-Af Amer) POC Glucose (mg/dL) Random Glucose Calcium Phosphorus Magnesium Total Bilirubin AST ALT Alkaline Phosphatase Total Protein Albumin Globulin Albumin/Globulin Ratio 09/06/16 09/06/16 09/06/16 05:00 05:00 07:42 WBC RBC Hgb Hct MCV MCH MCHC RDW Plt Count MPV Neutrophils % (Manual) Lymphocytes % (Manual) Monocytes % (Manual) Platelet Evaluation Large Platelets Hypochromasia Anisocytosis (manual) PT INR APTT pCO2 29 L pO2 111.0 H HCO3 21.1 ABG pH 7.47 H ABG Total CO2 22.0 ABG O2 Saturation 99.0 H ABG O2 Content 14.6 L ABG Base Excess -1.8 ABG Hemoglobin 10.6 L ABG Carboxyhemoglobin 1.6 H POC ABG HHb (Measured) 1.0 ABG Methemoglobin 0.8 ABG O2 Capacity 14.7 L Hgb O2 Saturation 96.7 FiO2 100.0 Sodium 136 Potassium 4.0 Chloride 102 Carbon Dioxide 24 Anion Gap 14 BUN 52 H Creatinine 3.7 H Est GFR ( Amer) 19 Est GFR (Non-Af Amer) 16 POC Glucose (mg/dL) 189 H Random Glucose 170 H Calcium 7.5 L Phosphorus 5.7 H Magnesium 2.0 Total Bilirubin 0.7 AST 24 ALT 36 Alkaline Phosphatase 75 Total Protein 4.8 L Albumin 2.1 L Globulin 2.7 Albumin/Globulin Ratio 0.8 L 09/06/16 09/06/16 11:23 15:41 WBC RBC Hgb Hct MCV MCH MCHC RDW Plt Count MPV Neutrophils % (Manual) Lymphocytes % (Manual) Monocytes % (Manual) Platelet Evaluation Large Platelets Hypochromasia Anisocytosis (manual) PT INR APTT pCO2 pO2 HCO3 ABG pH ABG Total CO2 ABG O2 Saturation ABG O2 Content ABG Base Excess ABG Hemoglobin ABG Carboxyhemoglobin POC ABG HHb (Measured) ABG Methemoglobin ABG O2 Capacity Hgb O2 Saturation FiO2 Sodium Potassium Chloride Carbon Dioxide Anion Gap BUN Creatinine Est GFR ( Amer) Est GFR (Non-Af Amer) POC Glucose (mg/dL) 248 H 172 H Random Glucose Calcium Phosphorus Magnesium Total Bilirubin AST ALT Alkaline Phosphatase Total Protein Albumin Globulin Albumin/Globulin Ratio Critical Care Progress Note - Nutrition Nutrition: Nutrition Category Date Time Status NPO Diet [DIET] Diets 09/04/16 Breakfast Ordered Attending/Attestation - Attestation I have personally seen and examined this patient.: Yes I have fully participated in the care of the patient.: Yes I have reviewed all pertinent clinical information: Yes Notes (Text): 09/06/16 17:35 81 y/o M W/ MODS GI bleed stable. No further transfusion needed . Resp Failure on BIPAP and HFNC ESRD on HD x 1 week. Aspiration risk. On empiric abx, w/o source and elevated WBC once again. 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 DNR/DNI. Awaiting LTAC placement . Poor prognosis Palliative care on board . cc time 55
--- NOTE | 2016-09-06 17:50 | CP.PCM.PN ---
Subjective - Date & Time of Evaluation Date of Evaluation: 09/06/16 Time of Evaluation: 11:05 - Subjective Subjective: Still on the ventilator, undergoing dialysis, no fevers overnight. Objective - Vital Signs/Intake and Output Vital Signs (last 24 hours): Temp Pulse Resp BP Pulse Ox 98.2 F 74 22 111/42 L 96 09/06/16 04:00 09/06/16 13:00 09/06/16 13:00 09/06/16 13:00 09/06/16 13:00 Intake and Output: 09/06/16 09/06/16 06:59 18:59 Intake Total 1781 Output Total 300 Balance 1481 - Medications Medications: Current Medications Acetaminophen (Tylenol 650 Mg Supp) 650 mg RC Q4H PRN PRN Reason: Fever >100.4 F Arformoterol Tartrate (Brovana) 15 mcg IH [id number] [facility] Last Admin: 09/06/16 07:32 Dose: 15 mcg Artificial Tears (Artificial Tears) 0 ml OU Q6H [facility] Last Admin: 09/06/16 12:25 Dose: 2 drop Aspirin (Aspirin Supp) 150 mg RC DAILY [facility] Last Admin: 09/06/16 09:51 Dose: 150 mg Budesonide (Pulmicort Respules) 0.5 mg IH [id number] [facility] Last Admin: 09/06/16 07:32 Dose: 0.5 mg Furosemide (Lasix) 40 mg IVP Q12 [facility] Last Admin: 09/02/16 12:22 Dose: Not Given Hydralazine HCl (Apresoline) 10 mg PO QID [facility] Last Admin: 09/06/16 13:23 Dose: Not Given Heparin Sodium/Sodium Chloride (Heparin 00331 Units/250ml 1/2 Normal Saline) 250 mls @ 13.904 mls/hr IV .R93C20M PRN; Protocol; 18 UNITS/KG/HR PRN Reason: ADJUST RATE PER PROTOCOL Last Admin: 09/05/16 08:00 Dose: 14 units/kg/hr, 10.815 mls/hr Meropenem 500 mg/ Sodium (Chloride) 100 mls @ 100 mls/hr IVPB Q12 [facility] PRN Reason: Protocol Stop: 09/09/16 10:16 Last Admin: 09/06/16 09:58 Dose: 100 mls/hr Dobutamine HCl/Dextrose (Dobutamine/Dextrose 5% 500mg/250ml) 250 mls @ 5.797 mls/hr IV .Q24H PRN; Protocol; 2.5 MCG/KG/MIN PRN Reason: TITRATE PER PROTOCOL Last Admin: 09/05/16 19:08 Dose: 2.5 mcg/kg/min, 5.797 mls/hr Linezolid (Zyvox 600mg/300ml D5w) 600 mg in 300 mls @ 200 mls/hr IVPB Q12 [facility] PRN Reason: Protocol Stop: 09/12/16 10:16 Last Admin: 09/06/16 09:52 Dose: 200 mls/hr diltiaZEM IVPB 100mg in NS (Cardizem 100mg In Ns) 100 mls @ 15 mls/hr IVPB .Q6H40M PRN; Protocol PRN Reason: TITRATE PER MD ORDER Last Admin: 09/06/16 12:28 Dose: 15 mls/hr Insulin Human Lispro (Humalog Low) 0 units SC ACHS [facility] PRN Reason: Protocol Last Admin: 09/06/16 16:34 Dose: Not Given Isosorbide Dinitrate (Isordil) 10 mg PO Q8H [facility] Last Admin: 09/06/16 09:55 Dose: Not Given Metoprolol Tartrate (Lopressor) 5 mg IVP Q6H [facility] Last Admin: 09/06/16 13:24 Dose: Not Given Pantoprazole Sodium (Protonix Inj) 40 mg IVP Q12 [facility] Last Admin: 09/06/16 09:52 Dose: 40 mg Saliva Substitute (Saliva Substitute) 0 ml PO Q4 [facility] Last Admin: 09/06/16 16:34 Dose: 1 ml Tetrahydrozoline HCl/Zinc Sulfate (Visine 0.05% Opht Soln) 0 ml OU BID PRN PRN Reason: Dry eyes Vitamin A (Vitamin A & D Oint Ud Foilpak) 1 ea TOP Q12 [facility] Last Admin: 09/06/16 09:52 Dose: 1 ea - Labs Labs: 09/06/16 05:00 09/06/16 05:00 PT 13.7 Seconds (9.9-11.8) H 09/06/16 05:00 INR 1.27 (0.93-1.08) H 09/06/16 05:00 APTT 58.5 Seconds (23.7-30.8) H 09/06/16 05:00 - Constitutional Appears: Non-toxic, No Acute Distress - Head Exam Head Exam: NORMAL INSPECTION - ENT Exam ENT Exam: Mucous Membranes Moist - Neck Exam Neck Exam: absent: Lymphadenopathy, Meningismus - Respiratory Exam Respiratory Exam: Decreased Breath Sounds - Cardiovascular Exam Cardiovascular Exam: +S1, +S2 - GI/Abdominal Exam GI & Abdominal Exam: Soft. absent: Tenderness Assessment and Plan - Assessment and Plan (Free Text) Plan: Assessment Severe sepsis with hypoxic and again ventilator-dependent respiratory failure probably secondary to now hospital-acquired pneumonia in a patient with acute on chronic renal failure and lactic acidosis as well as possible non-ST elevation myocardial infarction with acute CHF and worsening cardiac function S/P cardiac cath with note of CAD with triple vessel disease Persistently elevated leukocytosis R/O new onset sepsis source to be determined Acute on Chronic renal failure now on hemodialysis history of cerebrovascular accident S/O left carotid endarterectomy history of immune-thrombocytopenic purpura BPH CAD Plan continue Merrem (day 5) and Zyvox; repeat septic work up is negative so far ( from 09/05/2016); stool for Cdiff is negative; reviewed CT Abdomen and pelvis which did not show acute inflammation or fluid collection but did show new splenic infarcts Babesia tests are negative; Mycoplasma IgM negative; urine Legionella Ag is negative Overall prognosis is poor
--- NOTE | 2016-09-06 21:07 | PN ---
DATE: 09/06/2016 SUBJECTIVE: The patient is seen in the ICU. He is lying in bed. He is awake, he is alert. He is o n high flow oxygen. He is answering some questions. He appears to be in mild respiratory distress. He is on dobutamine, heparin drip, Cardizem drip. His heart rate is in the 70s. Blood pressure remains low. PHYSICAL EXAMINATION: GENERAL: Elderly male lying in bed in mild respiratory distress on high flow oxygen. VITAL SIGNS: Blood pressure 108/42, heart rate 75, respiratory rate 22, temperature 98.2. HEENT: Normocephalic, atraumatic, positive pallor. NECK: Supple, no JVD. LUNGS: Bilateral equal air entry, equal expansion, good air entry. CARDIAC: S1, S2, irregularly irregular, no murmur, no rub. ABDOMEN: Soft, nondistended, nontender. Bowel sounds present. EXTREMITIES: Decreased edema of the lower extremities, still with 2+ pitting edema of the upper extr emities. INTAKE AND OUTPUT: /300. LABORATORY DATA: WBC 26.9, hemoglobin 10, hematocrit 30, platelets 138. Sodium 136, potassium 4.0, chloride 102, CO2 24, BUN 22, creatinine 3.7, glucose 170, calcium 7.5, phosphorus 5.7, magnesium 2.0 . Albumin 2.1, globulin 2.7. Sputum culture, no growth except for yeast. CURRENT MEDICATIONS: Aspirin, Brovana, Cardizem IV, dobutamine IV, heparin drip, insulin, Imdur not given, Lasix not given, Lopressor not given, Protonix. ASSESSMENT: 1. Acute renal failure superimposed on chronic kidney disease stage IV. At this point, patient mayela ins dialysis dependent. His urine output is only 300 mL for the last 24 hours. The patient will be dialyzed again today. 2. Coronary artery disease, multivessel, status post cardiac catheterization, hypokinesis. 3. Non-insulin dependent diabetes mellitus. 4. Status post non-ST elevation myocardial infarction, cardiomyopathy. 5. Sepsis, hypotension, possible aspiration pneumonia, rise in WBC count, ? line sepsis. 6. Leukocytosis, bandemia, line sepsis? 7. Atrial fibrillation, currently with rate control on IV Cardizem drip, on heparin drip. 8. Secondary hyperparathyroidism. 9. Anemia, recent gastrointestinal bleed, anemia of chronic kidney disease. 10. Respiratory failure, status post extubation, improvement in respiratory status. PLAN: 1. Dialysis today. The patient will be dialyzed for 3 hours. We will try to ultrafiltrate 1.5-2 kg . 2. In light of his rising WBC count, we have no choice but to remove his dialysis catheter. Discuss ed with the ICU team at length. His Shiley catheter to be removed after dialysis today. A new gio ter will be needed prior to next dialysis, which will be on Sunday, hopefully. 3. Continue inotropic support with Dobutrex. 4. Continue IV Cardizem for atrial fibrillation, consider switching to p.o. Cardizem. 5. At this point, the patient will likely require chronic dialysis. 6. Case was discussed with the ICU team at length. 7. Case was discussed with the ICU nursing staff. 8. Case is discussed with dialysis staff. More than 35 minutes were spent in the care of this critically ill patient. Aundrea Alcazar MD cc: [id number] TT: 09/06/2016 21:06:54 Confirmation # [id number] Dictation # [id number] jessica
--- NOTE | 2016-09-06 22:03 | PN ---
DATE: 09/06/2016 ADDENDUM: This is an addendum to the GI progress report dictated by Breann Mayfield NP. HISTORY OF PRESENT ILLNESS: The patient was seen and evaluated earlier, discussed with medical reside nt. The patient is still on BiPAP and orogastric tube was removed for obtaining a good seal for BiPA P. The concern is also about nutritional status. The patient does have a history of gastric ulcers placed on heparin, history of atrial fibrillation with splenic infarct. Hemoglobin is stable at 10.4 , WBC is slightly showing upward trend. End-stage renal disease. abdomen was soft. RECOMMENDATIONS: 1. Continue the present treatment. Close followup of the hemoglobin and hematocrit. 2. Continue the PPI. 3. Followup of the repeat stool for C. difficile. 4. The patient may need a feeding tube placement, but the challenge in this case will be anesthesia for the procedure as the patient is presently on BiPAP. Respiration status must be optimized before considering the endoscopic procedure. Thank you very much for allowing us to participate in the care of your patient. Eleonora Dillard MD cc: [phone] TT: 09/06/2016 22:03:42 Confirmation # [id number] Dictation # [id number] ln
[2016-09-06] MEDS ORDERED: Collagen Hemostat Powder MM ONE (23:52)
--- NOTE | 2016-09-07 00:04 | CP.PCM.PN ---
Subjective - Date & Time of Evaluation Date of Evaluation: 09/06/16 Time of Evaluation: 11:00 - Subjective Subjective: Appears comfortable Objective - Vital Signs/Intake and Output Vital Signs (last 24 hours): Temp Pulse Resp BP Pulse Ox 98.2 F 84 22 111/42 L 96 09/06/16 04:00 09/06/16 17:49 09/06/16 13:00 09/06/16 13:00 09/06/16 13:00 - Medications Medications: Current Medications Acetaminophen (Tylenol 650 Mg Supp) 650 mg RC Q4H PRN PRN Reason: Fever >100.4 F Arformoterol Tartrate (Brovana) 15 mcg IH [id number] [facility] Last Admin: 09/06/16 21:07 Dose: 15 mcg Artificial Tears (Artificial Tears) 0 ml OU Q6H [facility] Last Admin: 09/06/16 17:46 Dose: 1 drop Aspirin (Aspirin Supp) 150 mg RC DAILY [facility] Last Admin: 09/06/16 09:51 Dose: 150 mg Budesonide (Pulmicort Respules) 0.5 mg IH [id number] [facility] Last Admin: 09/06/16 21:07 Dose: 0.5 mg Furosemide (Lasix) 40 mg IVP Q12 [facility] Last Admin: 09/02/16 12:22 Dose: Not Given Hydralazine HCl (Apresoline) 10 mg PO QID [facility] Last Admin: 09/06/16 22:07 Dose: Not Given Heparin Sodium/Sodium Chloride (Heparin 14597 Units/250ml 1/2 Normal Saline) 250 mls @ 13.904 mls/hr IV .[id number] PRN; Protocol; 18 UNITS/KG/HR PRN Reason: ADJUST RATE PER PROTOCOL Last Admin: 09/05/16 08:00 Dose: 14 units/kg/hr, 10.815 mls/hr Meropenem 500 mg/ Sodium (Chloride) 100 mls @ 100 mls/hr IVPB Q12 [facility] PRN Reason: Protocol Stop: 09/09/16 10:16 Last Admin: 09/06/16 23:12 Dose: 100 mls/hr Dobutamine HCl/Dextrose (Dobutamine/Dextrose 5% 500mg/250ml) 250 mls @ 5.797 mls/hr IV .Q24H PRN; Protocol; 2.5 MCG/KG/MIN PRN Reason: TITRATE PER PROTOCOL Last Admin: 09/05/16 19:08 Dose: 2.5 mcg/kg/min, 5.797 mls/hr Linezolid (Zyvox 600mg/300ml D5w) 600 mg in 300 mls @ 200 mls/hr IVPB Q12 [facility] PRN Reason: Protocol Stop: 09/12/16 10:16 Last Admin: 09/06/16 23:18 Dose: 200 mls/hr diltiaZEM IVPB 100mg in NS (Cardizem 100mg In Ns) 100 mls @ 15 mls/hr IVPB .Q6H40M PRN; Protocol PRN Reason: TITRATE PER MD ORDER Last Admin: 09/06/16 20:13 Dose: 15 mls/hr Insulin Human Lispro (Humalog Low) 0 units SC ACHS [facility] PRN Reason: Protocol Last Admin: 09/06/16 23:18 Dose: Not Given Isosorbide Dinitrate (Isordil) 10 mg PO Q8H [facility] Last Admin: 09/06/16 17:47 Dose: Not Given Metoprolol Tartrate (Lopressor) 5 mg IVP Q6H [facility] Last Admin: 09/06/16 22:10 Dose: Not Given Pantoprazole Sodium (Protonix Inj) 40 mg IVP Q12 [facility] Last Admin: 09/06/16 23:18 Dose: 40 mg Saliva Substitute (Saliva Substitute) 0 ml PO Q4 [facility] Last Admin: 09/06/16 22:11 Dose: Not Given Tetrahydrozoline HCl/Zinc Sulfate (Visine 0.05% Opht Soln) 0 ml OU BID PRN PRN Reason: Dry eyes Vitamin A (Vitamin A & D Oint Ud Foilpak) 1 ea TOP Q12 [facility] Last Admin: 09/06/16 23:18 Dose: 1 ea - Labs Labs: 09/06/16 05:00 09/06/16 05:00 PT 13.7 Seconds (9.9-11.8) H 09/06/16 05:00 INR 1.27 (0.93-1.08) H 09/06/16 05:00 APTT 58.5 Seconds (23.7-30.8) H 09/06/16 05:00 - Head Exam Head Exam: ATRAUMATIC - Eye Exam Eye Exam: Normal appearance - ENT Exam ENT Exam: Mucous Membranes Dry - Respiratory Exam Respiratory Exam: Decreased Breath Sounds - GI/Abdominal Exam GI & Abdominal Exam: Normal Bowel Sounds - Extremities Exam Extremities Exam: Pedal Edema Assessment and Plan (1) Leukocytosis Assessment & Plan: on antibiotics Status: Acute (2) Anemia Assessment & Plan: anemia of CKD and chronic disease Status: Acute (3) ITP (idiopathic thrombocytopenic purpura) Assessment & Plan: normal plt count; Promacta on hold Status: Acute
[2016-09-07] MEDS: Saliva Substitute 44.3 ML PO SCH ×6 (00:22→21:51)
[2016-09-07] MEDS: Aritificial Tears (15ml) OU SCH ×4 (00:26→18:42)
[2016-09-07] MEDS: diltiaZEM IVPB 100mg in NS 100 ML IVPB PRN ×2 (03:08→09:49)
[2016-09-07] MEDS: Metoprolol 1 mg/ml Inj IVP SCH ×4 (04:13→21:50)
[2016-09-07 06:33] LABS: INR 1.19 (0.93-1.08); PARTIAL THROMBOPLASTIN TIME 56.3 Seconds (23.7-30.8)
[2016-09-07 06:41] LABS: ARTERIAL BLOOD GAS HCO3 23.5 mmol/L (21-28); ARTERIAL BLOOD GAS PH 7.46 (7.35-7.45); ARTERIAL BLOOD HGB O2 SAT 97.1 % (95.0-98.0); CARBOXYHEMOGLOBIN 1.5 % (0.5-1.5); HHB 0.3 % (0-5)
[2016-09-07 06:49] LABS: ALB/GLOB RATIO 0.7 (1.1-1.8); BASO # 0.01 [, K/mm3] (0.0-2.0); BILIRUBIN,TOTAL 0.6 mg/dL (0.2-1.3); CALCIUM 7.3 mg/dL (8.4-10.5); EOS # 0.2 (0.0-0.7); EOS % 0.7 % (1.5-5.0); GRAN # 21.44 (1.4-6.5); GRAN % 91.1 % (50.0-68.0); HEMATOCRIT 28.2 % (42.0-52.0); LYMPH # 0.7 (1.2-3.4); LYMPH % 3.1 % (22.0-35.0); MEAN CELL VOLUME 87.9 fL (80.0-105.0); MEAN CORPUSCULAR HEMOGLOBIN 29.9 pg (25.0-35.0); MONO # 1.2 (0.1-0.6); MONO % 5.1 % (1.0-6.0); PLATELET COUNT 131 [, 10^3/uL] (120.0-450.0); POTASSIUM 3.8 mmol/L (3.6-5.0); RED CELL DISTRIBUTION WIDTH 16.9 % (11.5-14.5); TOTAL PROTEIN 4.7 g/dL (5.8-8.3); WHITE BLOOD COUNT 23.5 [, 10^3/ul] (4.5-11.0)
[2016-09-07 07:04] LABS: ADD MANUAL DIFF? NO
[2016-09-07] MEDS: Insulin Lispro (humaLOG) LOW Coverage SC SCH ×4 (07:30→21:49)
[2016-09-07] MEDS: Arformoterol 15 mcg/2 ml Inh Sol IH SCH ×2 (08:39→20:55)
[2016-09-07] MEDS: Budesonide 0.5 mg/2 ml Inhal Susp UD IH SCH ×2 (08:39→20:55)
[2016-09-07] MEDS: Meropenem 500 MG in Sodium Chloride 0.9% 100 ML IVPB SCH ×2 (09:26→21:50)
[2016-09-07] MEDS: Linezolid 600 mg in D5W 300 ml 600 MG/300 ML BAG IVPB SCH ×2 (09:43→21:55)
[2016-09-07] MEDS: Vitamins A & D Oint UD Foilpak TOP SCH ×2 (09:43→21:54)
--- NOTE | 2016-09-07 09:53 | PN ---
DATE: 09/07/2016 The patient was seen earlier this morning in CCU 129, bed 1. Overall, patient had an uneventful nigh t and poor condition. No fevers reported. PHYSICAL EXAMINATION: VITAL SIGNS: Temperature is 98, blood pressure is 107/40, respiratory rate of 18, heart rate of 71. HEENT: Unremarkable. NECK: Supple. LUNGS: Have decreased breath sounds. ABDOMEN: Soft, nontender. LABORATORY EXAMINATION: Reveals a white count of 23,000, hemoglobin of 9, platelets of 131. BUN of 36, creatinine of 3.1. ASSESSMENT AND PLAN: An 81-year-old male was seen earlier this morning with severe sepsis and he is admitted with ventilator dependent respiratory failure with hospital-acquired pneumonia, acute on chronic renal failure, lactic acidosis, and with non-ST elevation myocardial infarction in the fac e of acute congestive heart failure with worsening cardiac function. Currently on day #6 of meropene m and Zyvox. Workup negative thus far and overall prognosis is poor. The patient is now on BiPAP an d will follow closely with you. Kamran Jay MD cc: [phone] TT: 09/07/2016 09:53:12 Confirmation # [id number] Dictation # [id number] en
--- NOTE | 2016-09-07 09:55 | RAD ---
HISTORY: shortness of breath COMPARISON: 09/06/2016 FINDINGS: LUNGS: No change in right-sided alveolar infiltrate. Slight increase in left-sided infiltrate. PLEURA: Small left effusion CARDIOVASCULAR: Normal. OSSEOUS STRUCTURES: No significant abnormalities. VISUALIZED UPPER ABDOMEN: Normal. OTHER FINDINGS: None. IMPRESSION: No change in right-sided infiltrate. Slight increase in left infiltrate
--- NOTE | 2016-09-07 11:12 | PN ---
DATE: 09/06/2016 SUBJECTIVE: The patient was seen and examined on 09/06/2016. The patient was seen in the unit. The patient has noninvasive ventilation with whole face mask. He is awake. Got dialysis. Does not have fever. Does not look like toxic. No hemoptysis, no hematuria, no hematochezia. No swelling of the legs. Because the patient is having facemask, is not able to give a complete review of systems. PHYSICAL EXAMINATION: VITAL SIGNS: Temperature 98.6, heart rate is 70, respiratory rate 20, blood pressure 120/42. HEENT: Head is normocephalic, atraumatic. Eyes open. Nose patent. Mucous membranes moist. Having noninvasive ventilation with face mask on the face. LUNGS: Have scattered crackles and rhonchi. HEART: S1, S2 positive. NECK: Supple. No JVD, no carotid bruit. HEART: S1, S2 positive. ABDOMEN: Soft, nontender, no organomegaly. EXTREMITIES: There is trace edema. NEUROLOGIC: The patient is awake but lethargic. Cannot do complete neurological examination. MEDICATIONS: Hydralazine, artificial tears, aspirin, Brovana, Cardizem drip, dobutamine drip, heparin drip, Lasix, metoprolol, meropenem, Protonix, Pulmicort , Tylenol and Zyvox. LABORATORY DATA: Hemoglobin 10.4, hematocrit 30.0, white blood cells 27,000, platelets 138. INR 1.27. Sodium 136, potassium 4.0, BUN 52, creatinine noted , glucose 170. AST 24, ALT 36. ASSESSMENT AND PLAN: The patient is an 81-year-old male, has multiorgan failure. Chest x-ray shows bilateral infiltrates, pneumonia, respiratory failure, on noninvasive ventilation, multilobar pneumonia, combination of pulmonary edema with renal failure on dialysis, atrial fibrillation, cardiomyopathy, extensive coronary artery disease. Reviewed Dr. Ruff's notes. Poor prognosis. Family is understanding. The patient is DNR/DNI. Will talk to the family about G-tube placement. Continue noninvasive ventilation. Keep head elevated at 24 degrees. Gastrointestinal and deep venous thrombosis prophylaxis. Repeat labs. Dr. Jay/ID is on the case. GI/Dr. Dillard is on the case. Dr. Alcazar is the atomic spectroscopist. Dr. Bashir Samson is the cork grinder. Will follow up. Sana Myers MD cc: [id number] TT: 09/07/2016 11:11:44 Confirmation # [id number] Dictation # [id number] mn [id number]
--- NOTE | 2016-09-07 11:37 | CP.CCUPN ---
<Izabela Luis - Last Filed: 09/07/16 13:27> CCU Subjective - Physician Review Subjective (Free Text): 08/28/16 09:19 Intubated yesterday for abdominal agonal breath. 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, new compared echo 1 year ago 08/30/16 13:53 No Melena overnight CXR - decreased pulm edema with lasix q12 plus 100 IV x 1 HR 60s, BP 100s extubated, on NRB 12L, HR 62, POx 97, BP in high 90s 08/31/16 07:47 Overnight, Got deniz lasix. In addition lopressor x 1 for Sinus tachy at 130s. Bipap at night. This am at A-fib RVR 140s - given bicarb, amiodarone 150 x 1. On amiodarone gtt. Breathing with crackles, pulm suction out pink froths, given 20 Lasix x 1 U/O 200 overnight - oliguric markedly decrease u/o 12/7/35% sat 95 08/31/16 12:47 On high flow, 50L, 40% Finished 2nd bottle of oral contrast for CT abd/pelvis Will go to radiology at 2:30 [facility] placement afterwards HD to be followed. Notified Dr. Alcazar WBC 28, still high today. 1 BM overnight and 1 BM this afternoon, dark bilous. Sent for C diff testing again. 09/01/16 09:26 1 black BM overnight, large quantity, black, watery. Hold heparin at 3AM, restart at 7AM T 99.9 AM. procal sent Not on bipap overnight. On HFNC 40%, 50L HR 80s. suction out white floths, no pink. Add 1 u pRBC during HD today 1 non-sustained a-fib at noon, pt already on heparin. HR returned to 80s. 09/04/16 11:34 occassional A. flutter, 4:1, non-sustained 93L Bipap 1 bilous green mucoid stool overnight 09/04/16 12:42 Hold heparin for PICC PM Bipap 27/10//60%. RR 26. POx 95% If POx maintained, high flow NS. 09/05/16 08:37 DNI/DNR Family still want max med support Afebrile overnight WBC still trends up to 24.6 despite removal of central line 09/06/16 17:07 diarrhea 50cc overnight Remove rectal tube Meet with Son, Brian moya, with Dr. Bashir Samson re: juice via straw. Kohler thickened. Son understand the purpose is for pt's comfort, with high risk of choking/aspiration/worsening current respiration status. Family expressed wishes to Palliative and attending doctor yesterday that they want LTAC. Peg tube will be placed once family consent. 09/07/16 13:20 Stop dobutamine drip. cardizem drip On high flow rate control a-fib Pending decision on tunnel cath and peg POA wants LTAC CCU Objective - Vital Signs / Intake & Output Vital Signs (Last 4 hours): Vital Signs Pulse BP 09/07/16 09:49 71 105/32 L 09/07/16 09:25 66 108/38 L 09/07/16 08:55 67 107/45 L 09/07/16 08:40 70 Intake and Output (Last 8hrs): Intake & Output 09/06/16 09/07/16 09/07/16 22:59 06:59 14:59 Intake Total 779 Output Total 30 Balance 749 Weight 157 lb 14.4 oz Intake: IV 779 Right Upper arm 779 Oral 0 Output: Urine 30 Urethral (Rodrigez) 30 Other: Voiding Method Indwelling Catheter - Physical Exam Head: Positive for: Atraumatic, Normocephalic Pupils: Positive for: PERRL Extroacular Muscles: Positive for: EOMI Mouth: Positive for: Dry Neck: Positive for: MIDLINE TENDERNESS (dressing on R neck d/c/i, shiley in [facility]) . Negative for: JVD Respiratory/Chest: Positive for: Clear to Auscultation, Rales. Negative for: Accessory Muscle Use, Retracting Cardiovascular: Positive for: Normal S1, S2, Irregular Rhythm, Tachycardic ( occasional, during HD, non-sustained). Negative for: Murmurs Abdomen: Positive for: Normal Bowel Sounds. Negative for: Tenderness, Distention, Peritoneal Signs Rectal: Positive for: Hemorrhoids (external). Negative for: Normal Rectal Tone (dilated rectal tone, soft prostate), Fissures Back: Positive for: Normal Inspection Upper Extremity: Positive for: Edema. Negative for: Erythema Lower Extremity: Positive for: Edema (2+ Pitting edema of left LE, with long healed scars; R femoral sheath removed, dressing d/c/i) Neurological: Negative for: Speech Normal (per son, slurred) Skin: Positive for: Warm, Dry, Normal Color. Negative for: Rashes Psychiatric: Positive for: Alert - Medications Active Medications: Active Medications Generic Name Dose Route Start Last Admin Trade Name Freq PRN Reason Stop Dose Admin Acetaminophen 650 mg 08/26/16 16:19 Tylenol 650 Mg Supp RC Q4H PRN Fever >100.4 F Arformoterol Tartrate 15 mcg 08/26/16 20:00 09/07/16 08:39 Brovana IH 15 mcg [id number] DENIZ Administration Artificial Tears 0 ml 09/01/16 12:30 09/07/16 06:38 Artificial Tears OU 1 drop Q6H DENIZ Administration Aspirin 150 mg 09/04/16 10:00 09/07/16 09:45 Aspirin Supp RC 150 mg DAILY DENIZ Administration Budesonide 0.5 mg 08/26/16 20:00 09/07/16 08:39 Pulmicort Respules IH 0.5 mg [id number] DENIZ Administration Diltiazem HCl 5 mg 09/07/16 10:10 Cardizem IVP Q2 PRN Heart rate Furosemide 40 mg 08/28/16 22:00 09/02/16 12:22 Lasix IVP Not Given Q12 DENIZ Hydralazine HCl 10 mg 09/02/16 18:00 09/07/16 09:25 Apresoline PO Not Given QID DENIZ Heparin Sodium/Sodium Chloride 250 mls @ 13.904 mls/hr 09/01/16 07:19 08:00 Heparin 47450 Units/250ml 1/2 Normal Saline IV 14 units/kg/hr .[id number] PRN 10.815 mls/hr ADJUST RATE PER PROTOCOL Administration Protocol 18 UNITS/KG/HR Meropenem 500 mg/ Sodium 100 mls @ 100 mls/hr 09/02/16 10:15 09/07/16 09:26 Chloride IVPB 09/09/16 10:16 100 mls/hr Q12 DENIZ Administration Protocol Dobutamine HCl/Dextrose 250 mls @ 5.797 mls/hr 09/02/16 10:31 09/05/16 19:08 Dobutamine/Dextrose 5% 500mg/250ml IV 2.5 mcg/kg/min .Q24H PRN 5.797 mls/hr TITRATE PER PROTOCOL Administration Protocol 2.5 MCG/KG/MIN Linezolid 600 mg in 300 mls @ 200 mls/hr 09/05/16 10:15 09/07/16 09:43 Zyvox 600mg/300ml D5w IVPB 09/12/16 10:16 200 mls/hr Q12 DENIZ Administration Protocol Insulin Human Lispro 0 units 08/26/16 22:00 09/07/16 07:30 Humalog Low SC Not Given ACHS DENIZ Protocol Isosorbide Dinitrate 10 mg 09/02/16 18:30 09/07/16 10:11 Isordil PO Not Given Q8H [facility] Metoprolol Tartrate 5 mg 08/29/16 14:00 09/07/16 08:55 Lopressor IVP Not Given Q6H DENIZ Pantoprazole Sodium 40 mg 08/26/16 22:00 09/07/16 09:44 Protonix Inj IVP 40 mg Q12 DENIZ Administration Saliva Substitute 0 ml 09/06/16 16:00 09/07/16 08:56 Saliva Substitute PO Not Given Q4 DENIZ Tetrahydrozoline HCl/Zinc Sulfate 0 ml 08/30/16 21:02 Visine 0.05% Opht Soln OU BID PRN Dry eyes Vitamin A 1 ea 09/04/16 22:00 09/07/16 09:43 Vitamin A & D Oint Ud Foilpak TOP 1 ea Q12 DENIZ Administration - Patient Studies Lab Studies: Microbiology Studies 09/05/16 15:35 Gram Stain - Final Sputum Sputum Culture - Final Yeast Species 09/01/16 16:40 Blood Culture - Final Blood-Venous NO GROWTH AFTER 5 DAYS Gram Stain - Final TEST NOT PERFORMED 09/01/16 11:48 Blood Culture - Final Blood-Venous NO GROWTH AFTER 5 DAYS Gram Stain - Final TEST NOT PERFORMED 09/05/16 11:32 Blood Culture - Preliminary Blood-Venous NO GROWTH AFTER 24 HOURS 09/05/16 11:17 Blood Culture - Preliminary Blood-Venous NO GROWTH AFTER 24 HOURS Lab Studies 09/07/16 09/07/16 09/07/16 Range/Units 06:00 06:00 06:00 WBC (4.5-11.0) 10^3/ul RBC (3.5-6.1) 10^6/uL Hgb (14.0-18.0) gm/dL Hct (42.0-52.0) % MCV (80.0-105.0) fL MCH (25.0-35.0) pg MCHC (31.0-37.0) g/dl RDW (11.5-14.5) % Plt Count (120.0-450.0) 10^3/uL Gran % (50.0-68.0) % Lymph % (Auto) (22.0-35.0) % [place] % (Auto) (1.0-6.0) % Eos % (Auto) (1.5-5.0) % Baso % (Auto) (0.0-3.0) % Gran # (1.4-6.5) Lymph # (1.2-3.4) [place] # (0.1-0.6) Eos # (0.0-0.7) Baso # (0.0-2.0) K/mm3 PT 12.9 H (9.9-11.8) Seconds INR 1.19 H (0.93-1.08) APTT 56.3 H (23.7-30.8) Seconds pCO2 33 L (35-45) mm/Hg pO2 244.0 H (80-100) mm/Hg HCO3 23.5 (21-28) mmol/L ABG pH 7.46 H (7.35-7.45) ABG Total CO2 24.5 (22-28) mmol.L ABG O2 Saturation 99.7 H (95-98) % ABG O2 Content 12.0 L (15-23) ML/dl ABG Base Excess -0.1 (-2.0-3.0) mmol/L ABG Hemoglobin 8.3 L (11.7-17.4) g/dL ABG Carboxyhemoglobin 1.5 (0.5-1.5) % POC ABG HHb (Measured) 0.3 (0-5) % ABG Methemoglobin 1.0 (0.0-3.0) % ABG O2 Capacity 12.0 L (16-24) mL/dl Hgb O2 Saturation 97.1 (95.0-98.0) % FiO2 100.0 % Sodium 135 (132-148) mmol/L Potassium 3.8 (3.6-5.0) mmol/L Chloride 101 (98-107) mmol/L Carbon Dioxide 28 (21-33) mmol/L Anion Gap 10 (10-20) BUN 36 H (7-21) mg/dL Creatinine 3.1 H (0.5-1.4) mg/dL Est GFR ( Amer) 23 Est GFR (Non-Af Amer) 19 POC Glucose (mg/dL) (65-110) mg/dL Random Glucose 167 H (70-110) mg/dL Calcium 7.3 L (8.4-10.5) mg/dL Phosphorus 5.0 H (2.5-4.5) mg/dL Magnesium 2.0 (1.7-2.2) mg/dL Total Bilirubin 0.6 (0.2-1.3) mg/dL AST 19 (15-59) U/L ALT 37 (7-56) U/L Alkaline Phosphatase 75 (38-133) U/L Total Protein 4.7 L (5.8-8.3) g/dL Albumin 1.9 L (3.0-4.8) g/dL Globulin 2.7 gm/dL Albumin/Globulin Ratio 0.7 L (1.1-1.8) 09/07/16 09/06/16 09/06/16 Range/Units 06:00 21:40 15:41 WBC 23.5 H (4.5-11.0) 10^3/ul RBC 3.21 L (3.5-6.1) 10^6/uL Hgb 9.6 L (14.0-18.0) gm/dL Hct 28.2 L (42.0-52.0) % MCV 87.9 (80.0-105.0) fL MCH 29.9 (25.0-35.0) pg MCHC 34.0 (31.0-37.0) g/dl RDW 16.9 H (11.5-14.5) % Plt Count 131 (120.0-450.0) 10^3/uL Gran % 91.1 H (50.0-68.0) % Lymph % (Auto) 3.1 L (22.0-35.0) % [place] % (Auto) 5.1 (1.0-6.0) % Eos % (Auto) 0.7 L (1.5-5.0) % Baso % (Auto) 0.0 (0.0-3.0) % Gran # 21.44 H (1.4-6.5) Lymph # 0.7 L (1.2-3.4) [place] # 1.2 H (0.1-0.6) Eos # 0.2 (0.0-0.7) Baso # 0.01 (0.0-2.0) K/mm3 PT (9.9-11.8) Seconds INR (0.93-1.08) APTT (23.7-30.8) Seconds pCO2 (35-45) mm/Hg pO2 (80-100) mm/Hg HCO3 (21-28) mmol/L ABG pH (7.35-7.45) ABG Total CO2 (22-28) mmol.L ABG O2 Saturation (95-98) % ABG O2 Content (15-23) ML/dl ABG Base Excess (-2.0-3.0) mmol/L ABG Hemoglobin (11.7-17.4) g/dL ABG Carboxyhemoglobin (0.5-1.5) % POC ABG HHb (Measured) (0-5) % ABG Methemoglobin (0.0-3.0) % ABG O2 Capacity (16-24) mL/dl Hgb O2 Saturation (95.0-98.0) % FiO2 % Sodium (132-148) mmol/L Potassium (3.6-5.0) mmol/L Chloride (98-107) mmol/L Carbon Dioxide (21-33) mmol/L Anion Gap (10-20) BUN (7-21) mg/dL Creatinine (0.5-1.4) mg/dL Est GFR ( Amer) Est GFR (Non-Af Amer) POC Glucose (mg/dL) 157 H 172 H (65-110) mg/dL Random Glucose (70-110) mg/dL Calcium (8.4-10.5) mg/dL Phosphorus (2.5-4.5) mg/dL Magnesium (1.7-2.2) mg/dL Total Bilirubin (0.2-1.3) mg/dL AST (15-59) U/L ALT (7-56) U/L Alkaline Phosphatase (38-133) U/L Total Protein (5.8-8.3) g/dL Albumin (3.0-4.8) g/dL Globulin gm/dL Albumin/Globulin Ratio (1.1-1.8) 09/06/16 09/05/16 09/05/16 Range/Units 11:23 22:07 16:32 WBC (4.5-11.0) 10^3/ul RBC (3.5-6.1) 10^6/uL Hgb (14.0-18.0) gm/dL Hct (42.0-52.0) % MCV (80.0-105.0) fL MCH (25.0-35.0) pg MCHC (31.0-37.0) g/dl RDW (11.5-14.5) % Plt Count (120.0-450.0) 10^3/uL Gran % (50.0-68.0) % Lymph % (Auto) (22.0-35.0) % [place] % (Auto) (1.0-6.0) % Eos % (Auto) (1.5-5.0) % Baso % (Auto) (0.0-3.0) % Gran # (1.4-6.5) Lymph # (1.2-3.4) [place] # (0.1-0.6) Eos # (0.0-0.7) Baso # (0.0-2.0) K/mm3 PT (9.9-11.8) Seconds INR (0.93-1.08) APTT (23.7-30.8) Seconds pCO2 (35-45) mm/Hg pO2 (80-100) mm/Hg HCO3 (21-28) mmol/L ABG pH (7.35-7.45) ABG Total CO2 (22-28) mmol.L ABG O2 Saturation (95-98) % ABG O2 Content (15-23) ML/dl ABG Base Excess (-2.0-3.0) mmol/L ABG Hemoglobin (11.7-17.4) g/dL ABG Carboxyhemoglobin (0.5-1.5) % POC ABG HHb (Measured) (0-5) % ABG Methemoglobin (0.0-3.0) % ABG O2 Capacity (16-24) mL/dl Hgb O2 Saturation (95.0-98.0) % FiO2 % Sodium (132-148) mmol/L Potassium (3.6-5.0) mmol/L Chloride (98-107) mmol/L Carbon Dioxide (21-33) mmol/L Anion Gap (10-20) BUN (7-21) mg/dL Creatinine (0.5-1.4) mg/dL Est GFR ( Amer) Est GFR (Non-Af Amer) POC Glucose (mg/dL) 248 H 215 H 239 H (65-110) mg/dL Random Glucose (70-110) mg/dL Calcium (8.4-10.5) mg/dL Phosphorus (2.5-4.5) mg/dL Magnesium (1.7-2.2) mg/dL Total Bilirubin (0.2-1.3) mg/dL AST (15-59) U/L ALT (7-56) U/L Alkaline Phosphatase (38-133) U/L Total Protein (5.8-8.3) g/dL Albumin (3.0-4.8) g/dL Globulin gm/dL Albumin/Globulin Ratio (1.1-1.8) Laboratory Results - last 24 hr 09/05/16 09/05/16 09/06/16 16:32 22:07 11:23 WBC RBC Hgb Hct MCV MCH MCHC RDW Plt Count Gran % Lymph % (Auto) [place] % (Auto) Eos % (Auto) Baso % (Auto) Gran # Lymph # [place] # Eos # Baso # PT INR APTT pCO2 pO2 HCO3 ABG pH ABG Total CO2 ABG O2 Saturation ABG O2 Content ABG Base Excess ABG Hemoglobin ABG Carboxyhemoglobin POC ABG HHb (Measured) ABG Methemoglobin ABG O2 Capacity Hgb O2 Saturation FiO2 Sodium Potassium Chloride Carbon Dioxide Anion Gap BUN Creatinine Est GFR ( Amer) Est GFR (Non-Af Amer) POC Glucose (mg/dL) 239 H 215 H 248 H Random Glucose Calcium Phosphorus Magnesium Total Bilirubin AST ALT Alkaline Phosphatase Total Protein Albumin Globulin Albumin/Globulin Ratio 09/06/16 09/06/16 09/07/16 15:41 21:40 06:00 WBC 23.5 H RBC 3.21 L Hgb 9.6 L Hct 28.2 L MCV 87.9 MCH 29.9 MCHC 34.0 RDW 16.9 H Plt Count 131 Gran % 91.1 H Lymph % (Auto) 3.1 L [place] % (Auto) 5.1 Eos % (Auto) 0.7 L Baso % (Auto) 0.0 Gran # 21.44 H Lymph # 0.7 L [place] # 1.2 H Eos # 0.2 Baso # 0.01 PT INR APTT pCO2 pO2 HCO3 ABG pH ABG Total CO2 ABG O2 Saturation ABG O2 Content ABG Base Excess ABG Hemoglobin ABG Carboxyhemoglobin POC ABG HHb (Measured) ABG Methemoglobin ABG O2 Capacity Hgb O2 Saturation FiO2 Sodium Potassium Chloride Carbon Dioxide Anion Gap BUN Creatinine Est GFR ( Amer) Est GFR (Non-Af Amer) POC Glucose (mg/dL) 172 H 157 H Random Glucose Calcium Phosphorus Magnesium Total Bilirubin AST ALT Alkaline Phosphatase Total Protein Albumin Globulin Albumin/Globulin Ratio 09/07/16 09/07/16 09/07/16 06:00 06:00 06:00 WBC RBC Hgb Hct MCV MCH MCHC RDW Plt Count Gran % Lymph % (Auto) [place] % (Auto) Eos % (Auto) Baso % (Auto) Gran # Lymph # [place] # Eos # Baso # PT 12.9 H INR 1.19 H APTT 56.3 H pCO2 33 L pO2 244.0 H HCO3 23.5 ABG pH 7.46 H ABG Total CO2 24.5 ABG O2 Saturation 99.7 H ABG O2 Content 12.0 L ABG Base Excess -0.1 ABG Hemoglobin 8.3 L ABG Carboxyhemoglobin 1.5 POC ABG HHb (Measured) 0.3 ABG Methemoglobin 1.0 ABG O2 Capacity 12.0 L Hgb O2 Saturation 97.1 FiO2 100.0 Sodium 135 Potassium 3.8 Chloride 101 Carbon Dioxide 28 Anion Gap 10 BUN 36 H Creatinine 3.1 H Est GFR ( Amer) 23 Est GFR (Non-Af Amer) 19 POC Glucose (mg/dL) Random Glucose 167 H Calcium 7.3 L Phosphorus 5.0 H Magnesium 2.0 Total Bilirubin 0.6 AST 19 ALT 37 Alkaline Phosphatase 75 Total Protein 4.7 L Albumin 1.9 L Globulin 2.7 Albumin/Globulin Ratio 0.7 L Fingerstick Blood Sugar Results: 150 Critical Care Progress Note - Nutrition Nutrition: Nutrition Category Date Time Status NPO Diet [DIET] Diets 09/04/16 Breakfast Ordered Assessment/Plan - Assessment and Plan (Free Text) Plan: 81 years old male, AAO x 3 at baseline, living alone, with CAD s/p stent on plaix and CKD stage 4, parosximal A-fib not anticoagulated, Hx stroke with L weakness > 1 yr ago, Hx chronic ITP, was found unconscious on the floor on Sunday (08/26) covered with melonic stool with maroon blood clots. Pt had worsened L weakness compared to baseline, slurred speech, and new L nathan- neglect on Good Sunday (08/25). He was admitted to ICU with massive upper GI bleed. NSTEMI is due to Type 2 UT. Cardiac catherterization showed triple vessel disease with diffuse artheroscloerosis with no new blockage. Not CABG candidate. He has CHF, acute on chronic, diastolic and systolic (EF 30s), from ischemic cardiomyopathy, on inotrop and cardizem gtt. Elevated transaminase is now resolved. Pt is now on dialysis, likely requiring long-term. He is extubated (on 08/30, and again on 09/03) for agonal breathing to compensate metabolic acidosis and pleural edema/effusion - now on Bipap. WBC trends up to 27. Afebrile. New diarrhea (50 cc overnight). C.diff sent today. Central line was out and got New PICC. Blood culture drawn from [facility] after dialysis today. He is on Heparin gtt for A-fib RVR with new splenic infarct. Plan Neuro - Hx R MCA and R [employer] watershed infarct, residual L weakness, L facial droop - Lethargic, mentation improves, able to follow commands, verbalized to son that he felt thirsty and like the apple juice with nectar thickener. - Family consent to feeding pt with nectar thickened liquid via straw. Family understand the risk of worsening current respiratory status and consequence of mortality. Cardio - CAD on metoprolol 5 IV q6, ASA MA, - A-fib, new splenic infarct: s/p amiodarone gtt, s/p cardizem gtt - D/C dobutamin 2.5 mcg gtt - HOLD PO MEDS (No access) Afterload reduction by hydralazine 10 QID and isosorbide dinitrate 10 q8. HOLD LASIX - Type 2 UT, NSTEMI; Hb goal in UT is Hb 10 Pulm - CXR: b/l infiltrate - On high flow - On Brovana, Budesonide - Goal is to decrease pulmonary support s/p dialysis - Increased secretion - Reposition, Chest PT, Duoneb PRN, Suction PRN, pulm toiletry PRN GI - Pending POA on PEG decision - Swallow eval. - No active GI bleed. - Protonix IV BID - Diarrhea seen on rectal tube. C diff sent again. prior specimen negative - Bedside Endoscopy (08/28) showed no active bleed, barretts and PUD (1 organized healed scab, 2 clean based) no web - Chest, abdomen, pelvis w.o contrast: Proctitis - Abd u/s: Cholelithiasis with gallbladder wall thickening; small perocholecystic fluid. No sono martinez sign. Fatty liver Nephro - Next dialysis tomorrow - Oliguric - Goal: negative fluid balance Endo - Hx non-IDDM - ISSS-low. - Goal blood sugar 140-180 - Avoid Kayexaltate in setting of GI bleed Heme - Hx ITP, Prosca on hold - LE dupplers b/l negative Skin - stage 2 sacral - turn q2, air mattress, dressing, heel foams - New PICC (09/05) Infectious - WBC trends down to 23.5 - Pending blood culture drawn from leo. - Sputum culture (+) yeast - day 6 pf meropenem and Zyvox - C. diff sent again. No sign of phlebitis on lines Prophlaxis - heparin gtt - Protonix GI bleed dose Disposition/Prognosis - DNR/DNI - Pt still want max level of medical treatment - POA agrees with LTAC - Pending consent to peg tube/tunnel cath S/R/D/w Dr. Lizzie Rouse - Date & Time Date: 09/07/16 Time: 13:23 <Nasim PHILIP,Cristi Melendrez - Last Filed: 09/07/16 14:22> CCU Objective - Vital Signs / Intake & Output Vital Signs (Last 4 hours): Vital Signs Pulse Resp BP Pulse Ox 09/07/16 12:15 64 19 92/40 L 98 09/07/16 12:00 74 19 115/35 L 97 09/07/16 11:45 72 20 118/40 L 99 09/07/16 11:30 75 17 107/42 L 92 L 09/07/16 11:21 69 09/07/16 11:15 68 20 111/38 L 92 L 09/07/16 11:00 71 19 113/37 L 92 L 09/07/16 10:45 72 19 103/45 L 92 L 09/07/16 10:30 70 21 108/43 L 91 L Intake and Output (Last 8hrs): Intake & Output 09/06/16 09/07/16 09/07/16 22:59 06:59 14:59 Intake Total 779 Output Total 30 Balance 749 Weight 157 lb 14.4 oz Intake: IV 779 Right Upper arm 779 Oral 0 Output: Urine 30 Urethral (Rodrigez) 30 Other: Voiding Method Indwelling Catheter Indwelling Catheter - Medications Active Medications: Active Medications Generic Name Dose Route Start Last Admin Trade Name Freq PRN Reason Stop Dose Admin Acetaminophen 650 mg 08/26/16 16:19 Tylenol 650 Mg Supp RC Q4H PRN Fever >100.4 F Arformoterol Tartrate 15 mcg 08/26/16 20:00 09/07/16 08:39 Brovana IH 15 mcg [id number] DENIZ Administration Artificial Tears 0 ml 09/01/16 12:30 09/07/16 13:25 Artificial Tears OU 2 drop Q6H DENIZ Administration Aspirin 150 mg 09/04/16 10:00 09/07/16 09:45 Aspirin Supp RC 150 mg DAILY DENIZ Administration Budesonide 0.5 mg 08/26/16 20:00 09/07/16 08:39 Pulmicort Respules IH 0.5 mg [id number] DENIZ Administration Diltiazem HCl 5 mg 09/07/16 10:10 Cardizem IVP Q2 PRN Heart rate Hydralazine HCl 10 mg 09/02/16 18:00 09/07/16 09:25 Apresoline PO Not Given QID DENIZ Heparin Sodium/Sodium Chloride 250 mls @ 13.904 mls/hr 09/01/16 07:19 08:00 Heparin 94916 Units/250ml 1/2 Normal Saline IV 14 units/kg/hr .[id number] PRN 10.815 mls/hr ADJUST RATE PER PROTOCOL Administration Protocol 18 UNITS/KG/HR Meropenem 500 mg/ Sodium 100 mls @ 100 mls/hr 09/02/16 10:15 09/07/16 09:26 Chloride IVPB 09/09/16 10:16 100 mls/hr Q12 DENIZ Administration Protocol Linezolid 600 mg in 300 mls @ 200 mls/hr 09/05/16 10:15 09/07/16 09:43 Zyvox 600mg/300ml D5w IVPB 09/12/16 10:16 200 mls/hr Q12 DENIZ Administration Protocol Insulin Human Lispro 0 units 08/26/16 22:00 09/07/16 11:30 Humalog Low SC Not Given ACHS [facility] Protocol Isosorbide Dinitrate 10 mg 09/02/16 18:30 09/07/16 10:11 Isordil PO Not Given Q8H DENIZ Metoprolol Tartrate 5 mg 08/29/16 14:00 09/07/16 08:55 Lopressor IVP Not Given Q6H [facility] Pantoprazole Sodium 40 mg 08/26/16 22:00 09/07/16 09:44 Protonix Inj IVP 40 mg Q12 DENIZ Administration Saliva Substitute 0 ml 09/06/16 16:00 09/07/16 13:26 Saliva Substitute PO 1 ml Q4 DENIZ Administration Tetrahydrozoline HCl/Zinc Sulfate 0 ml 08/30/16 21:02 Visine 0.05% Opht Soln OU BID PRN Dry eyes Vitamin A 1 ea 09/04/16 22:00 09/07/16 09:43 Vitamin A & D Oint Ud Foilpak TOP 1 ea Q12 DENIZ Administration - Patient Studies Lab Studies: Microbiology Studies 09/05/16 11:32 Blood Culture - Preliminary Blood-Venous NO GROWTH AFTER 48 HOURS 09/05/16 11:17 Blood Culture - Preliminary Blood-Venous NO GROWTH AFTER 48 HOURS 09/05/16 15:35 Gram Stain - Final Sputum Sputum Culture - Final Yeast Species 09/01/16 16:40 Blood Culture - Final Blood-Venous NO GROWTH AFTER 5 DAYS Gram Stain - Final TEST NOT PERFORMED 09/01/16 11:48 Blood Culture - Final Blood-Venous NO GROWTH AFTER 5 DAYS Gram Stain - Final TEST NOT PERFORMED Lab Studies 09/07/16 09/07/16 09/07/16 Range/Units 06:00 06:00 06:00 WBC (4.5-11.0) 10^3/ul RBC (3.5-6.1) 10^6/uL Hgb (14.0-18.0) gm/dL Hct (42.0-52.0) % MCV (80.0-105.0) fL MCH (25.0-35.0) pg MCHC (31.0-37.0) g/dl RDW (11.5-14.5) % Plt Count (120.0-450.0) 10^3/uL Gran % (50.0-68.0) % Lymph % (Auto) (22.0-35.0) % [place] % (Auto) (1.0-6.0) % Eos % (Auto) (1.5-5.0) % Baso % (Auto) (0.0-3.0) % Gran # (1.4-6.5) Lymph # (1.2-3.4) [place] # (0.1-0.6) Eos # (0.0-0.7) Baso # (0.0-2.0) K/mm3 PT 12.9 H (9.9-11.8) Seconds INR 1.19 H (0.93-1.08) APTT 56.3 H (23.7-30.8) Seconds pCO2 33 L (35-45) mm/Hg pO2 244.0 H (80-100) mm/Hg HCO3 23.5 (21-28) mmol/L ABG pH 7.46 H (7.35-7.45) ABG Total CO2 24.5 (22-28) mmol.L ABG O2 Saturation 99.7 H (95-98) % ABG O2 Content 12.0 L (15-23) ML/dl ABG Base Excess -0.1 (-2.0-3.0) mmol/L ABG Hemoglobin 8.3 L (11.7-17.4) g/dL ABG Carboxyhemoglobin 1.5 (0.5-1.5) % POC ABG HHb (Measured) 0.3 (0-5) % ABG Methemoglobin 1.0 (0.0-3.0) % ABG O2 Capacity 12.0 L (16-24) mL/dl Hgb O2 Saturation 97.1 (95.0-98.0) % FiO2 100.0 % Sodium 135 (132-148) mmol/L Potassium 3.8 (3.6-5.0) mmol/L Chloride 101 (98-107) mmol/L Carbon Dioxide 28 (21-33) mmol/L Anion Gap 10 (10-20) BUN 36 H (7-21) mg/dL Creatinine 3.1 H (0.5-1.4) mg/dL Est GFR ( Amer) 23 Est GFR (Non-Af Amer) 19 POC Glucose (mg/dL) (65-110) mg/dL Random Glucose 167 H (70-110) mg/dL Calcium 7.3 L (8.4-10.5) mg/dL Phosphorus 5.0 H (2.5-4.5) mg/dL Magnesium 2.0 (1.7-2.2) mg/dL Total Bilirubin 0.6 (0.2-1.3) mg/dL AST 19 (15-59) U/L ALT 37 (7-56) U/L Alkaline Phosphatase 75 (38-133) U/L Total Protein 4.7 L (5.8-8.3) g/dL Albumin 1.9 L (3.0-4.8) g/dL Globulin 2.7 gm/dL Albumin/Globulin Ratio 0.7 L (1.1-1.8) 09/07/16 09/06/16 09/06/16 Range/Units 06:00 21:40 15:41 WBC 23.5 H (4.5-11.0) 10^3/ul RBC 3.21 L (3.5-6.1) 10^6/uL Hgb 9.6 L (14.0-18.0) gm/dL Hct 28.2 L (42.0-52.0) % MCV 87.9 (80.0-105.0) fL MCH 29.9 (25.0-35.0) pg MCHC 34.0 (31.0-37.0) g/dl RDW 16.9 H (11.5-14.5) % Plt Count 131 (120.0-450.0) 10^3/uL Gran % 91.1 H (50.0-68.0) % Lymph % (Auto) 3.1 L (22.0-35.0) % [place] % (Auto) 5.1 (1.0-6.0) % Eos % (Auto) 0.7 L (1.5-5.0) % Baso % (Auto) 0.0 (0.0-3.0) % Gran # 21.44 H (1.4-6.5) Lymph # 0.7 L (1.2-3.4) [place] # 1.2 H (0.1-0.6) Eos # 0.2 (0.0-0.7) Baso # 0.01 (0.0-2.0) K/mm3 PT (9.9-11.8) Seconds INR (0.93-1.08) APTT (23.7-30.8) Seconds pCO2 (35-45) mm/Hg pO2 (80-100) mm/Hg HCO3 (21-28) mmol/L ABG pH (7.35-7.45) ABG Total CO2 (22-28) mmol.L ABG O2 Saturation (95-98) % ABG O2 Content (15-23) ML/dl ABG Base Excess (-2.0-3.0) mmol/L ABG Hemoglobin (11.7-17.4) g/dL ABG Carboxyhemoglobin (0.5-1.5) % POC ABG HHb (Measured) (0-5) % ABG Methemoglobin (0.0-3.0) % ABG O2 Capacity (16-24) mL/dl Hgb O2 Saturation (95.0-98.0) % FiO2 % Sodium (132-148) mmol/L Potassium (3.6-5.0) mmol/L Chloride (98-107) mmol/L Carbon Dioxide (21-33) mmol/L Anion Gap (10-20) BUN (7-21) mg/dL Creatinine (0.5-1.4) mg/dL Est GFR ( Amer) Est GFR (Non-Af Amer) POC Glucose (mg/dL) 157 H 172 H (65-110) mg/dL Random Glucose (70-110) mg/dL Calcium (8.4-10.5) mg/dL Phosphorus (2.5-4.5) mg/dL Magnesium (1.7-2.2) mg/dL Total Bilirubin (0.2-1.3) mg/dL AST (15-59) U/L ALT (7-56) U/L Alkaline Phosphatase (38-133) U/L Total Protein (5.8-8.3) g/dL Albumin (3.0-4.8) g/dL Globulin gm/dL Albumin/Globulin Ratio (1.1-1.8) 09/06/16 09/05/16 09/05/16 Range/Units 11:23 22:07 16:32 WBC (4.5-11.0) 10^3/ul RBC (3.5-6.1) 10^6/uL Hgb (14.0-18.0) gm/dL Hct (42.0-52.0) % MCV (80.0-105.0) fL MCH (25.0-35.0) pg MCHC (31.0-37.0) g/dl RDW (11.5-14.5) % Plt Count (120.0-450.0) 10^3/uL Gran % (50.0-68.0) % Lymph % (Auto) (22.0-35.0) % [place] % (Auto) (1.0-6.0) % Eos % (Auto) (1.5-5.0) % Baso % (Auto) (0.0-3.0) % Gran # (1.4-6.5) Lymph # (1.2-3.4) [place] # (0.1-0.6) Eos # (0.0-0.7) Baso # (0.0-2.0) K/mm3 PT (9.9-11.8) Seconds INR (0.93-1.08) APTT (23.7-30.8) Seconds pCO2 (35-45) mm/Hg pO2 (80-100) mm/Hg HCO3 (21-28) mmol/L ABG pH (7.35-7.45) ABG Total CO2 (22-28) mmol.L ABG O2 Saturation (95-98) % ABG O2 Content (15-23) ML/dl ABG Base Excess (-2.0-3.0) mmol/L ABG Hemoglobin (11.7-17.4) g/dL ABG Carboxyhemoglobin (0.5-1.5) % POC ABG HHb (Measured) (0-5) % ABG Methemoglobin (0.0-3.0) % ABG O2 Capacity (16-24) mL/dl Hgb O2 Saturation (95.0-98.0) % FiO2 % Sodium (132-148) mmol/L Potassium (3.6-5.0) mmol/L Chloride (98-107) mmol/L Carbon Dioxide (21-33) mmol/L Anion Gap (10-20) BUN (7-21) mg/dL Creatinine (0.5-1.4) mg/dL Est GFR ( Amer) Est GFR (Non-Af Amer) POC Glucose (mg/dL) 248 H 215 H 239 H (65-110) mg/dL Random Glucose (70-110) mg/dL Calcium (8.4-10.5) mg/dL Phosphorus (2.5-4.5) mg/dL Magnesium (1.7-2.2) mg/dL Total Bilirubin (0.2-1.3) mg/dL AST (15-59) U/L ALT (7-56) U/L Alkaline Phosphatase (38-133) U/L Total Protein (5.8-8.3) g/dL Albumin (3.0-4.8) g/dL Globulin gm/dL Albumin/Globulin Ratio (1.1-1.8) Laboratory Results - last 24 hr 09/05/16 09/05/16 09/06/16 16:32 22:07 11:23 WBC RBC Hgb Hct MCV MCH MCHC RDW Plt Count Gran % Lymph % (Auto) [place] % (Auto) Eos % (Auto) Baso % (Auto) Gran # Lymph # [place] # Eos # Baso # PT INR APTT pCO2 pO2 HCO3 ABG pH ABG Total CO2 ABG O2 Saturation ABG O2 Content ABG Base Excess ABG Hemoglobin ABG Carboxyhemoglobin POC ABG HHb (Measured) ABG Methemoglobin ABG O2 Capacity Hgb O2 Saturation FiO2 Sodium Potassium Chloride Carbon Dioxide Anion Gap BUN Creatinine Est GFR ( Amer) Est GFR (Non-Af Amer) POC Glucose (mg/dL) 239 H 215 H 248 H Random Glucose Calcium Phosphorus Magnesium Total Bilirubin AST ALT Alkaline Phosphatase Total Protein Albumin Globulin Albumin/Globulin Ratio 09/06/16 09/06/16 09/07/16 15:41 21:40 06:00 WBC 23.5 H RBC 3.21 L Hgb 9.6 L Hct 28.2 L MCV 87.9 MCH 29.9 MCHC 34.0 RDW 16.9 H Plt Count 131 Gran % 91.1 H Lymph % (Auto) 3.1 L [place] % (Auto) 5.1 Eos % (Auto) 0.7 L Baso % (Auto) 0.0 Gran # 21.44 H Lymph # 0.7 L [place] # 1.2 H Eos # 0.2 Baso # 0.01 PT INR APTT pCO2 pO2 HCO3 ABG pH ABG Total CO2 ABG O2 Saturation ABG O2 Content ABG Base Excess ABG Hemoglobin ABG Carboxyhemoglobin POC ABG HHb (Measured) ABG Methemoglobin ABG O2 Capacity Hgb O2 Saturation FiO2 Sodium Potassium Chloride Carbon Dioxide Anion Gap BUN Creatinine Est GFR ( Amer) Est GFR (Non-Af Amer) POC Glucose (mg/dL) 172 H 157 H Random Glucose Calcium Phosphorus Magnesium Total Bilirubin AST ALT Alkaline Phosphatase Total Protein Albumin Globulin Albumin/Globulin Ratio 09/07/16 09/07/16 09/07/16 06:00 06:00 06:00 WBC RBC Hgb Hct MCV MCH MCHC RDW Plt Count Gran % Lymph % (Auto) [place] % (Auto) Eos % (Auto) Baso % (Auto) Gran # Lymph # [place] # Eos # Baso # PT 12.9 H INR 1.19 H APTT 56.3 H pCO2 33 L pO2 244.0 H HCO3 23.5 ABG pH 7.46 H ABG Total CO2 24.5 ABG O2 Saturation 99.7 H ABG O2 Content 12.0 L ABG Base Excess -0.1 ABG Hemoglobin 8.3 L ABG Carboxyhemoglobin 1.5 POC ABG HHb (Measured) 0.3 ABG Methemoglobin 1.0 ABG O2 Capacity 12.0 L Hgb O2 Saturation 97.1 FiO2 100.0 Sodium 135 Potassium 3.8 Chloride 101 Carbon Dioxide 28 Anion Gap 10 BUN 36 H Creatinine 3.1 H Est GFR ( Amer) 23 Est GFR (Non-Af Amer) 19 POC Glucose (mg/dL) Random Glucose 167 H Calcium 7.3 L Phosphorus 5.0 H Magnesium 2.0 Total Bilirubin 0.6 AST 19 ALT 37 Alkaline Phosphatase 75 Total Protein 4.7 L Albumin 1.9 L Globulin 2.7 Albumin/Globulin Ratio 0.7 L Critical Care Progress Note - Nutrition Nutrition: Nutrition Category Date Time Status NPO Diet [DIET] Diets 09/04/16 Breakfast Ordered Attending/Attestation - Attestation I have personally seen and examined this patient.: Yes I have fully participated in the care of the patient.: Yes I have reviewed all pertinent clinical information: Yes Notes (Text): 09/07/16 14:19 81 y/o M w/ MODS Ray on CKD on HD Respiratory failure on BIPAP and HFNC, after HD oxygenation improved Anion Gap acidosis A fib rate controlled , transition from IV drip to P.O meds. 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 jail feedings, need for PEG? mental status declining, Perfrmance score low, poor prognosis Family in talks about LTAC placement cc time 65 min
--- NOTE | 2016-09-07 16:23 | PN ---
DATE: 09/07/2016 CARDIOLOGY FOLLOWUP The patient remains in bed. He is awake without dyspnea. PHYSICAL EXAMINATION: VITAL SIGNS: Blood pressure is 115/35. The heart rate is in the 60s. NECK: Negative JVD. LUNGS: Decreased breath sounds bilaterally. HEART: Reveals S1, S2. EXTREMITIES: Without change. LABORATORY DATA: Hemoglobin is 9.6. Chemistries: BUN and creatinine are 36 and 3.1. IMPRESSION: 1. Failure to thrive. 2. Ischemic dilated cardiomyopathy. 3. Diffuse vasculopathy. 4. Diabetes mellitus. 5. Renal insufficiency. PLAN: Given these findings, the patient has been hemodynamically stable for the past several days. We will taper off the dobutamine. There are plans to send the patient to an LTAC. Bashir Samson MD cc: [id number] TT: 09/07/2016 12:35:05 Confirmation # [id number] Dictation # [id number] alberto
--- NOTE | 2016-09-07 16:53 | PN ---
DATE: 09/07/2016 Seen and examined at the bedside earlier this morning. The patient's rectal tube was removed yesterd ay. No reports of any overt GI bleed. The patient remains on BiPAP. VITAL SIGNS: His temperature is 97.6, blood pressure was 105/32, pulse rate was 68, respirations 23, 100 on O2. LABORATORY DATA: WBC is 23.5, H and H is 9.6 and 28.2, platelets of 131. PT 12.9, INR is 1.19, PTT is 56.3. Sodium 135, K is 3.8, BUN 36, creatinine is 3.1. His mag is 2.0. LFTs are within normal l imits. Chest x-ray, no change in right-sided infiltrate, slight increase in left infiltrate. PHYSICAL EXAMINATION: HEENT: Sclerae are anicteric. NECK: Supple. CARDIAC: S1, S2, irregular. ABDOMEN: With bowel sounds, soft, nondistended. No tenderness on palpation, rebound or guarding. LUNGS: Clear with positive rales, no wheezing. EXTREMITIES: Upper and lower are positive for edema. NEUROLOGIC: The patient is lethargic. 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 The patient is status post gastrointestinal bleed. Had endoscopy, found to have peptic ulcer disease. He also has history of atrial fibrillation with splen ic infarct, anemia, right and left lung infiltrates, the patient is DNR/DNI, and malnutrition. PLAN: Will plan for a PEG insertion pending upon family decision. If family agrees, discuss with IC U team to hold heparin at 6:00 a.m. tomorrow. The patient is currently n.p.o. He is receiving aspir in suppositories. He is on IV antibiotics, Zyvox and meropenem. On GI prophylaxis, Protonix 40 q. 1 2. We will continue to follow. The patient was seen and case discussed with Dr. Dillard. Breann GRIFFITH cc: [id number] TT: 09/07/2016 16:53:03 Confirmation # [id number] Dictation # [id number] rn
[2016-09-08] MEDS: Saliva Substitute 44.3 ML PO SCH ×6 (00:15→20:52)
[2016-09-08] MEDS: Aritificial Tears (15ml) OU SCH ×3 (00:16→18:34)
--- NOTE | 2016-09-08 00:32 | PN ---
DATE: 09/07/2016 REFERRING PHYSICIAN: Dr. Myers. SUBJECTIVE: He is on noninvasive ventilation with a whole face mask, lethargic, minimally arousable. There is no hemoptysis, no emesis, no hematuria, no diarrhea. Does have anasarca objectively, on n oninvasive ventilation. PHYSICAL EXAMINATION: VITAL SIGNS: Temp is 98, heart rate is 85, respiratory rate is 30, blood pressure 118/58, pulse ox 9 9% on noninvasive ventilation. NECK: Supple. No JVD. LUNGS: Have scattered rhonchi. HEART: S1, S2 irregular. ABDOMEN: Soft, nontender. No organomegaly. EXTREMITIES: There is no edema. NEUROLOGIC: Lethargic, arousable. MEDICATIONS: He is on artificial tears, aspirin 150 mg rectally, Brovana 15 mcg inhaled twice a day, Cardizem 5 mg q. 12 hours p.r.n., on IV heparin, Isordil 10 mg q. 8 hours, metoprolol tartrate 5 mg IV q. 6 hours, meropenem 500 mg q. 12 hours, Protonix 40 mg daily, Pulmicort inhaled twice a day, kath lissett substitute q. 4 hours, Tylenol p.r.n. basis, vitamin A and D to affected areas, Zyvox 600 mg twic e a day. LABORATORY DATA: Shows hemoglobin 9.6, hematocrit 28.2, WBC 23.5, platelet is 131. INR of 1.19, PTT is 56. ABG today shows pH 7.46, pCO2 of 33, O2 244. That was on noninvasive ventilation. Sodium 1 35, potassium 3.8, chloride 101, bicarbonate 28, BUN 36, creatinine 3.1, glucose 167, calcium 7.3, ph osphorus 5.0, magnesium 2.0, AST 19, ALT 37, alk phos is 75, albumin is 1.9. MICROBIOLOGY: Stool for C. diff has been negative. Blood cultures sandra on 09/06 is so far no growth . Chest x-ray done today shows bilateral infiltrates. IMPRESSION AND PLAN: Multiorgan failure, respiratory failure, noninvasive ventilation, cardiomyopath y with significant coronary artery disease, pulmonary edema, aspiration pneumonia, renal failure, pep tic ulcer, status post gastrointestinal bleed, anemia, atrial fibrillation with paroxysmal rapid vent ricular response. Overall, poor prognosis. Continue supportive care, noninvasive ventilation, oral anticoagulation. Keep head elevated at 45 degrees. Follow up labs in the morning. Thank you, and will follow with you. Shawn Ruff MD cc: [id number] TT: 09/08/2016 00:31:58 Confirmation # [id number] Dictation # [id number] dn
[2016-09-08] MEDS: Metoprolol 1 mg/ml Inj IVP SCH ×4 (02:00→20:38)
[2016-09-08 06:16] LABS: HEMATOCRIT 31.8 % (42.0-52.0); MEAN CELL VOLUME 88.1 fL (80.0-105.0); MEAN CORPUSCULAR HEMOGLOBIN 29.4 pg (25.0-35.0); MEAN CORPUSCULAR HGB CONC 33.3 g/dl (31.0-37.0); PLATELET COUNT 151 [, 10^3/uL] (120.0-450.0); RED CELL DISTRIBUTION WIDTH 16.9 % (11.5-14.5); WHITE BLOOD COUNT 23.9 [, 10^3/ul] (4.5-11.0)
[2016-09-08 06:19] LABS: ADD MANUAL DIFF? YES
[2016-09-08 06:28] LABS: ARTERIAL BLOOD GAS HCO3 22.8 mmol/L (21-28); ARTERIAL BLOOD GAS O2 CAPACITY 20.9 mL/dl (16-24); ARTERIAL BLOOD GAS O2 CONTENT 20.9 ML/dl (15-23); ARTERIAL BLOOD GAS PH 7.41 (7.35-7.45); ARTERIAL BLOOD HGB O2 SAT 97.8 % (95.0-98.0); CARBOXYHEMOGLOBIN 1.3 % (0.5-1.5); HHB 0.1 % (0-5); METHEMOGLOBIN 0.8 % (0.0-3.0)
[2016-09-08 06:30] LABS: INR 1.13 (0.93-1.08); PARTIAL THROMBOPLASTIN TIME 35.9 Seconds (23.7-30.8)
[2016-09-08 06:49] LABS: ALB/GLOB RATIO 0.7 (1.1-1.8); BILIRUBIN,TOTAL 0.7 mg/dL (0.2-1.3); CALCIUM 7.6 mg/dL (8.4-10.5); MAGNESIUM 2.1 mg/dL (1.7-2.2); PHOSPHOROUS 6.1 mg/dL (2.5-4.5); POTASSIUM 4.1 mmol/L (3.6-5.0)
--- NOTE | 2016-09-08 07:22 | PN ---
DATE: 09/07/2016 SUBJECTIVE: The patient seen and examined on the bedside, still having noninvasive ventilation. Overnight, no change in the status. No reports of any overt GI bleeding. The patient remains on BiPAP. The patient is not able to give me full review of systems looks like. No fever, no chills. PHYSICAL EXAMINATION: VITAL SIGNS: Temperature 97.6, pulse 80, blood pressure 105/32, respiratory rate 20. HEENT: Head normocephalic, atraumatic. Eyes: PERRLA. Extraocular muscles intact. Conjunctivae pink. Eyelids unremarkable. Nose patent. Mucous membranes moist. NECK: Supple. No carotid bruit, JVD or thyromegaly. CHEST: Bilaterally symmetrical. HEART: S1, S2 positive. LUNGS: Clear to auscultation. ABDOMEN: Soft. Bowel sounds present. No organomegaly. EXTREMITIES: No edema, no cyanosis. NEUROLOGIC: The patient is awake, alert. Moving all 4 extremities. No focal deficit. LABORATORY DATA: White blood cells 23.5, hemoglobin 9.6, hematocrit 28.2, platelets 131. INR 1.19. Sodium 135, potassium 3.8, BUN 36, creatinine 3.1. LFTs are within normal limits. ASSESSMENT AND PLAN: The patient is an 81-year-old male with leukocytosis, history of abnormal liver function tests now within normal limits. Chest x-ray shows no change in the right-sided infiltrates, a slight increase in the left infiltrates. Has history of stroke with left-sided weakness, history of idiopathic thrombocytopenic purpura. The patient with coronary artery syndrome , chronic kidney disease stage IV with paroxysmal atrial fibrillation with history of gastrointestinal bleeding. Had endoscopy, found to have peptic ulcer disease. He also has some atrial fibrillation with infarction, anemia, right and left lung infiltrates. Made patient DNR. The patient is DNR and DNI. Family is planning about PEG tube placement. If family agrees and the ICU team, to hold heparin tomorrow. The patient is currently receiving aspirin suppositories, IV antibiotics of Zyvox and meropenem, GI prophylaxis, gave Protonix. Will continue low flow oxygen, GI and DVT prophylaxis. Will follow up. Sana Myers MD cc: [id number] TT: 09/08/2016 07:21:30 Confirmation # [id number] Dictation # [id number] mn MILDRED
[2016-09-08] MEDS: Arformoterol 15 mcg/2 ml Inh Sol IH SCH ×2 (07:32→20:33)
[2016-09-08] MEDS: Budesonide 0.5 mg/2 ml Inhal Susp UD IH SCH ×2 (07:32→21:34)
[2016-09-08] MEDS: Insulin Lispro (humaLOG) LOW Coverage SC SCH ×4 (07:34→22:16)
--- NOTE | 2016-09-08 08:48 | CP.CCUPN ---
<Izabela Luis - Last Filed: 09/08/16 08:41> CCU Subjective - Physician Review Subjective (Free Text): 08/28/16 09:19 Intubated yesterday for abdominal agonal breath. 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, new compared echo 1 year ago 08/30/16 13:53 No Melena overnight CXR - decreased pulm edema with lasix q12 plus 100 IV x 1 HR 60s, BP 100s extubated, on NRB 12L, HR 62, POx 97, BP in high 90s 08/31/16 07:47 Overnight, Got deniz lasix. In addition lopressor x 1 for Sinus tachy at 130s. Bipap at night. This am at A-fib RVR 140s - given bicarb, amiodarone 150 x 1. On amiodarone gtt. Breathing with crackles, pulm suction out pink froths, given 20 Lasix x 1 U/O 200 overnight - oliguric markedly decrease u/o 12/7/35% sat 95 08/31/16 12:47 On high flow, 50L, 40% Finished 2nd bottle of oral contrast for CT abd/pelvis Will go to radiology at 2:30 [facility] placement afterwards HD to be followed. Notified Dr. Alcazar WBC 28, still high today. 1 BM overnight and 1 BM this afternoon, dark bilous. Sent for C diff testing again. 09/01/16 09:26 1 black BM overnight, large quantity, black, watery. Hold heparin at 3AM, restart at 7AM T 99.9 AM. procal sent Not on bipap overnight. On HFNC 40%, 50L HR 80s. suction out white floths, no pink. Add 1 u pRBC during HD today 1 non-sustained a-fib at noon, pt already on heparin. HR returned to 80s. 09/04/16 11:34 occassional A. flutter, 4:1, non-sustained 93L Bipap 1 bilous green mucoid stool overnight 09/04/16 12:42 Hold heparin for PICC PM Bipap ///60%. RR 26. POx 95% If POx maintained, high flow NS. 09/05/16 08:37 DNI/DNR Family still want max med support Afebrile overnight WBC still trends up to 24.6 despite removal of central line 09/06/16 17:07 diarrhea 50cc overnight Remove rectal tube Meet with Son, Brian moya, with Dr. Bashir Samson re: juice via straw. [place] thickened. Son understand the purpose is for pt's comfort, with high risk of choking/aspiration/worsening current respiration status. Family expressed wishes to Palliative and attending doctor yesterday that they want LTAC. Peg tube will be placed once family consent. 09/07/16 13:20 Stop dobutamine drip. cardizem drip On high flow rate control a-fib Pending decision on tunnel cath and peg POA wants LTAC 09/08/16 08:41 HR high 90s to low 100s Will Cardizem if > 130 Pending dialysis. plan PEG then tunnel cath Need to know meds to go to LTAC Sat/Sun/Mon CCU Objective - Vital Signs / Intake & Output Vital Signs (Last 4 hours): Vital Signs Temp Pulse Resp BP Pulse Ox 09/08/16 07:33 96 H 09/08/16 07:31 98.7 F 09/08/16 07:15 96 H 25 H 136/57 L 100 09/08/16 07:00 96 H 20 126/52 L 100 09/08/16 06:45 96 H 23 126/59 L 100 09/08/16 06:30 96 H 20 128/56 L 100 09/08/16 06:15 96 H 19 124/51 L 100 09/08/16 06:00 96 H 23 129/54 L 100 09/08/16 05:45 97 H 23 112/73 100 09/08/16 05:30 96 H 20 119/45 L 100 09/08/16 05:15 108 H 23 140/58 L 100 09/08/16 05:00 108 H 21 130/54 L 100 09/08/16 04:45 95 H 24 133/57 L 100 Intake and Output (Last 8hrs): Intake & Output 09/07/16 09/08/16 09/08/16 22:59 06:59 14:59 Intake Total 40 0 Output Total 40 500 Balance 0 -500 Intake: IV 40 Right Upper arm 40 Oral 0 Output: Urine 40 500 Urethral (Rodrigez) 40 500 Other: Voiding Method Indwelling Catheter # Bowel Movements 0 - Physical Exam Head: Positive for: Atraumatic, Normocephalic Pupils: Positive for: PERRL Extroacular Muscles: Positive for: EOMI Conjunctiva: Positive for: Other (conjunctival pallor) Mouth: Positive for: Dry Neck: Positive for: MIDLINE TENDERNESS (dressing on R neck d/c/i, shiley in [facility]) . Negative for: JVD Respiratory/Chest: Positive for: Rales. Negative for: Accessory Muscle Use, Retracting Cardiovascular: Positive for: Normal S1, S2, Irregular Rhythm, Tachycardic ( occasional, during HD, non-sustained). Negative for: Murmurs Abdomen: Positive for: Normal Bowel Sounds. Negative for: Tenderness, Distention, Peritoneal Signs Rectal: Positive for: Hemorrhoids (external). Negative for: Normal Rectal Tone (dilated rectal tone, soft prostate), Fissures Back: Positive for: Normal Inspection Upper Extremity: Positive for: Edema. Negative for: Erythema Lower Extremity: Positive for: Edema (2+ Pitting edema of left LE, with long healed scars; R femoral sheath removed, dressing d/c/i) Neurological: Negative for: Speech Normal (per son, slurred) Skin: Positive for: Warm, Dry, Normal Color. Negative for: Rashes Psychiatric: Positive for: Alert - Medications Active Medications: Active Medications Generic Name Dose Route Start Last Admin Trade Name Freq PRN Reason Stop Dose Admin Acetaminophen 650 mg 08/26/16 16:19 Tylenol 650 Mg Supp RC Q4H PRN Fever >100.4 F Arformoterol Tartrate 15 mcg 08/26/16 20:00 09/08/16 07:32 Brovana IH 15 mcg [id number] DENIZ Administration Artificial Tears 0 ml 09/01/16 12:30 09/08/16 00:16 Artificial Tears OU Not Given Q6H DENIZ Aspirin 150 mg 09/04/16 10:00 09/07/16 09:45 Aspirin Supp RC 150 mg DAILY DENIZ Administration Budesonide 0.5 mg 08/26/16 20:00 09/08/16 07:32 Pulmicort Respules IH 0.5 mg [id number] DENIZ Administration Diltiazem HCl 5 mg 09/07/16 10:10 Cardizem IVP Q2 PRN Heart rate Hydralazine HCl 10 mg 09/02/16 18:00 09/07/16 21:48 Apresoline PO Not Given QID [facility] Heparin Sodium/Sodium Chloride 250 mls @ 13.904 mls/hr 09/01/16 07:19 08:00 Heparin 31199 Units/250ml 1/2 Normal Saline IV 14 units/kg/hr .[id number] PRN 10.815 mls/hr ADJUST RATE PER PROTOCOL Administration Protocol 18 UNITS/KG/HR Meropenem 500 mg/ Sodium 100 mls @ 100 mls/hr 09/02/16 10:15 09/07/16 21:50 Chloride IVPB 09/09/16 10:16 100 mls/hr Q12 DENIZ Administration Protocol Linezolid 600 mg in 300 mls @ 200 mls/hr 09/05/16 10:15 09/07/16 21:55 Zyvox 600mg/300ml D5w IVPB 09/12/16 10:16 200 mls/hr Q12 [facility] Administration Protocol Insulin Human Lispro 0 units 08/26/16 22:00 09/08/16 07:34 Humalog Low SC Not Given ACHS [facility] Protocol Isosorbide Dinitrate 10 mg 09/02/16 18:30 09/08/16 02:30 Isordil PO Not Given Q8H [facility] Metoprolol Tartrate 5 mg 08/29/16 14:00 09/08/16 02:00 Lopressor IVP Not Given Q6H [facility] Pantoprazole Sodium 40 mg 08/26/16 22:00 09/07/16 21:54 Protonix Inj IVP 40 mg Q12 DENIZ Administration Saliva Substitute 0 ml 09/06/16 16:00 09/08/16 04:00 Saliva Substitute PO Not Given Q4 DENIZ Tetrahydrozoline HCl/Zinc Sulfate 0 ml 08/30/16 21:02 Visine 0.05% Opht Soln OU BID PRN Dry eyes Vitamin A 1 ea 09/04/16 22:00 09/07/16 21:54 Vitamin A & D Oint Ud Foilpak TOP 1 ea Q12 DENIZ Administration - Patient Studies Lab Studies: Microbiology Studies 09/06/16 14:45 Blood Culture - Preliminary Blood-During Dialysis NO GROWTH AFTER 24 HOURS 09/06/16 18:55 C. difficile Antigen & Toxin A,B (M - Final Stool 09/05/16 11:32 Blood Culture - Preliminary Blood-Venous NO GROWTH AFTER 48 HOURS 09/05/16 11:17 Blood Culture - Preliminary Blood-Venous NO GROWTH AFTER 48 HOURS 09/05/16 15:35 Gram Stain - Final Sputum Sputum Culture - Final Yeast Species Lab Studies 09/08/16 09/08/16 09/08/16 Range/Units 05:30 05:30 05:30 WBC (4.5-11.0) 10^3/ul RBC (3.5-6.1) 10^6/uL Hgb (14.0-18.0) gm/dL Hct (42.0-52.0) % MCV (80.0-105.0) fL MCH (25.0-35.0) pg MCHC (31.0-37.0) g/dl RDW (11.5-14.5) % Plt Count (120.0-450.0) 10^3/uL PT 12.2 H (9.9-11.8) Seconds INR 1.13 H (0.93-1.08) APTT 35.9 H (23.7-30.8) Seconds pCO2 36 (35-45) mm/Hg pO2 204.0 H (80-100) mm/Hg HCO3 22.8 (21-28) mmol/L ABG pH 7.41 (7.35-7.45) ABG Total CO2 23.9 (22-28) mmol.L ABG O2 Saturation 99.9 H (95-98) % ABG O2 Content 20.9 (15-23) ML/dl ABG Base Excess -1.4 (-2.0-3.0) mmol/L ABG Hemoglobin 14.9 (11.7-17.4) g/dL ABG Carboxyhemoglobin 1.3 (0.5-1.5) % POC ABG HHb (Measured) 0.1 (0-5) % ABG Methemoglobin 0.8 (0.0-3.0) % ABG O2 Capacity 20.9 (16-24) mL/dl Hgb O2 Saturation 97.8 (95.0-98.0) % FiO2 100.0 % Sodium 135 (132-148) mmol/L Potassium 4.1 (3.6-5.0) mmol/L Chloride 99 (98-107) mmol/L Carbon Dioxide 25 (21-33) mmol/L Anion Gap 15 (10-20) BUN 47 H (7-21) mg/dL Creatinine 4.0 H (0.5-1.4) mg/dL Est GFR ( Amer) 17 Est GFR (Non-Af Amer) 14 POC Glucose (mg/dL) (65-110) mg/dL Random Glucose 137 H (70-110) mg/dL Calcium 7.6 L (8.4-10.5) mg/dL Phosphorus 6.1 H (2.5-4.5) mg/dL Magnesium 2.1 (1.7-2.2) mg/dL Total Bilirubin 0.7 (0.2-1.3) mg/dL AST 28 (15-59) U/L ALT 37 (7-56) U/L Alkaline Phosphatase 83 (38-133) U/L Total Protein 5.0 L (5.8-8.3) g/dL Albumin 2.1 L (3.0-4.8) g/dL Globulin 3.0 gm/dL Albumin/Globulin Ratio 0.7 L (1.1-1.8) 09/08/16 09/07/16 09/07/16 Range/Units 05:30 11:12 07:10 WBC 23.9 H (4.5-11.0) 10^3/ul RBC 3.61 (3.5-6.1) 10^6/uL Hgb 10.6 L (14.0-18.0) gm/dL Hct 31.8 L (42.0-52.0) % MCV 88.1 (80.0-105.0) fL MCH 29.4 (25.0-35.0) pg MCHC 33.3 (31.0-37.0) g/dl RDW 16.9 H (11.5-14.5) % Plt Count 151 (120.0-450.0) 10^3/uL PT (9.9-11.8) Seconds INR (0.93-1.08) APTT (23.7-30.8) Seconds pCO2 (35-45) mm/Hg pO2 (80-100) mm/Hg HCO3 (21-28) mmol/L ABG pH (7.35-7.45) ABG Total CO2 (22-28) mmol.L ABG O2 Saturation (95-98) % ABG O2 Content (15-23) ML/dl ABG Base Excess (-2.0-3.0) mmol/L ABG Hemoglobin (11.7-17.4) g/dL ABG Carboxyhemoglobin (0.5-1.5) % POC ABG HHb (Measured) (0-5) % ABG Methemoglobin (0.0-3.0) % ABG O2 Capacity (16-24) mL/dl Hgb O2 Saturation (95.0-98.0) % FiO2 % Sodium (132-148) mmol/L Potassium (3.6-5.0) mmol/L Chloride (98-107) mmol/L Carbon Dioxide (21-33) mmol/L Anion Gap (10-20) BUN (7-21) mg/dL Creatinine (0.5-1.4) mg/dL Est GFR ( Amer) Est GFR (Non-Af Amer) POC Glucose (mg/dL) 171 H 159 H (65-110) mg/dL Random Glucose (70-110) mg/dL Calcium (8.4-10.5) mg/dL Phosphorus (2.5-4.5) mg/dL Magnesium (1.7-2.2) mg/dL Total Bilirubin (0.2-1.3) mg/dL AST (15-59) U/L ALT (7-56) U/L Alkaline Phosphatase (38-133) U/L Total Protein (5.8-8.3) g/dL Albumin (3.0-4.8) g/dL Globulin gm/dL Albumin/Globulin Ratio (1.1-1.8) Laboratory Results - last 24 hr 09/07/16 09/07/16 09/08/16 07:10 11:12 05:30 WBC 23.9 H RBC 3.61 Hgb 10.6 L Hct 31.8 L MCV 88.1 MCH 29.4 MCHC 33.3 RDW 16.9 H Plt Count 151 PT INR APTT pCO2 pO2 HCO3 ABG pH ABG Total CO2 ABG O2 Saturation ABG O2 Content ABG Base Excess ABG Hemoglobin ABG Carboxyhemoglobin POC ABG HHb (Measured) ABG Methemoglobin ABG O2 Capacity Hgb O2 Saturation FiO2 Sodium Potassium Chloride Carbon Dioxide Anion Gap BUN Creatinine Est GFR ( Amer) Est GFR (Non-Af Amer) POC Glucose (mg/dL) 159 H 171 H Random Glucose Calcium Phosphorus Magnesium Total Bilirubin AST ALT Alkaline Phosphatase Total Protein Albumin Globulin Albumin/Globulin Ratio 09/08/16 09/08/16 09/08/16 05:30 05:30 05:30 WBC RBC Hgb Hct MCV MCH MCHC RDW Plt Count PT 12.2 H INR 1.13 H APTT 35.9 H pCO2 36 pO2 204.0 H HCO3 22.8 ABG pH 7.41 ABG Total CO2 23.9 ABG O2 Saturation 99.9 H ABG O2 Content 20.9 ABG Base Excess -1.4 ABG Hemoglobin 14.9 ABG Carboxyhemoglobin 1.3 POC ABG HHb (Measured) 0.1 ABG Methemoglobin 0.8 ABG O2 Capacity 20.9 Hgb O2 Saturation 97.8 FiO2 100.0 Sodium 135 Potassium 4.1 Chloride 99 Carbon Dioxide 25 Anion Gap 15 BUN 47 H Creatinine 4.0 H Est GFR ( Amer) 17 Est GFR (Non-Af Amer) 14 POC Glucose (mg/dL) Random Glucose 137 H Calcium 7.6 L Phosphorus 6.1 H Magnesium 2.1 Total Bilirubin 0.7 AST 28 ALT 37 Alkaline Phosphatase 83 Total Protein 5.0 L Albumin 2.1 L Globulin 3.0 Albumin/Globulin Ratio 0.7 L Fingerstick Blood Sugar Results: 151 Critical Care Progress Note - Nutrition Nutrition: Nutrition Category Date Time Status NPO Diet [DIET] Diets 04/24/17 Breakfast Ordered Assessment/Plan - Assessment and Plan (Free Text) Plan: 81 years old male, AAO x 3 at baseline, living alone, with CAD s/p stent on plaix and CKD stage 4, parosximal A-fib not anticoagulated, Hx stroke with L weakness > 1 yr ago, Hx chronic ITP, was found unconscious on the floor on Sunday (08/26) covered with melonic stool with maroon blood clots. Pt had worsened L weakness compared to baseline, slurred speech, and new L nathan- neglect on Good Sunday (08/25). He was admitted to ICU with massive upper GI bleed. NSTEMI is due to Type 2 [place]. Cardiac catherterization showed triple vessel disease with diffuse artheroscloerosis with no new blockage. Not CABG candidate. He has CHF, acute on chronic, diastolic and systolic (EF 30s), from ischemic cardiomyopathy, s/p inotrop and cardizem gtt. Elevated transaminase is now resolved. Pt is now on dialysis, requiring long-term. He is extubated (on , and again on 09/03) for agonal breathing to compensate metabolic acidosis and pleural edema/effusion - now on high/flow, Bipap. WBC trends up to 27. Afebrile. New diarrhea, resolved, pending C.diff. Central line was out and got New PICC. Blood culture drawn from [facility] after dialysis, pending result. He is on Heparin gtt for A-fib RVR with new splenic infarct. Plan to HD today, then PEG, then Tunnel cath. Plan Neuro - Hx R MCA and R [employer] watershed infarct, residual L weakness, L facial droop - Lethargic, mentation improves, able to follow commands, verbalized to son that he felt thirsty and like the apple juice with nectar thickener. - Family consent to feeding pt with nectar thickened liquid via straw. Family understand the risk of worsening current respiratory status and consequence of mortality. Cardio - CAD on metoprolol 5 IV q6, ASA CO, - A-fib, new splenic infarct: s/p amiodarone gtt, s/p cardizem gtt - D/C dobutamin 2.5 mcg gtt - Cardizem 5 PRN if HR > 130 - HOLD PO MEDS (No access) Afterload reduction by hydralazine 10 QID and isosorbide dinitrate 10 q8. HOLD LASIX - Type 2 WA, NSTEMI; Hb goal in WA is Hb 10 Pulm - CXR: b/l infiltrate - On high flow - Bipap as needed - On Brovana, Budesonide - Goal is to decrease pulmonary support s/p dialysis - Increased secretion - Reposition, Chest PT, Duoneb PRN, Suction PRN, pulm toiletry PRN GI - PEG today - Protonix IV BID - Need to ask whether to back on heparin gtt for splenic infarct, afib after procedure (?) - Diarrhea seen on rectal tube, removed rectal tube. C diff sent again. prior specimen negative - Bedside Endoscopy (08/28) showed no active bleed, barretts and PUD (1 organized healed scab, 2 clean based) no web - Chest, abdomen, pelvis w.o contrast: Proctitis - Abd u/s: Cholelithiasis with gallbladder wall thickening; small perocholecystic fluid. No sono martinez sign. Fatty liver Nephro - Dialysis today - Oliguric - Goal: negative fluid balance Endo - Hx non-IDDM - ISSS-low. - Goal blood sugar 140-180 - Avoid Kayexaltate in setting of GI bleed Heme - Hx ITP, Prosca on hold - LE dupplers b/l negative Skin - stage 2 sacral - turn q2, air mattress, dressing, heel foams - New PICC (09/05) Infectious - WBC hivers at 23-24 - Pending blood culture drawn from [facility]. - Sputum culture (+) yeast - day 7 pf meropenem and Zyvox - C. diff sent again. No sign of phlebitis on lines Prophlaxis - heparin gtt - hold for procedure - Protonix GI bleed dose Disposition/Prognosis - DNR/DNI - Pt still want max level of medical treatment - POA agrees with LTAC - Today placement of peg tube/tunnel cath S/R/D/w Dr. Lizzie Rouse - Date & Time Date: 09/08/16 Time: 08:43 <Nasim PHILIP,Cristi Melendrez - Last Filed: 09/08/16 09:22> CCU Objective - Vital Signs / Intake & Output Vital Signs (Last 4 hours): Vital Signs Temp Pulse Resp BP Pulse Ox 09/08/16 07:33 96 H 09/08/16 07:31 98.7 F 09/08/16 07:15 96 H 25 H 136/57 L 100 09/08/16 07:00 96 H 20 126/52 L 100 09/08/16 06:45 96 H 23 126/59 L 100 09/08/16 06:30 96 H 20 128/56 L 100 09/08/16 06:15 96 H 19 124/51 L 100 09/08/16 06:00 96 H 23 129/54 L 100 09/08/16 05:45 97 H 23 112/73 100 09/08/16 05:30 96 H 20 119/45 L 100 Intake and Output (Last 8hrs): Intake & Output 09/07/16 09/08/16 09/08/16 22:59 06:59 14:59 Intake Total 40 0 Output Total 40 500 Balance 0 -500 Intake: IV 40 Right Upper arm 40 Oral 0 Output: Urine 40 500 Urethral (Rodrigez) 40 500 Other: Voiding Method Indwelling Catheter # Bowel Movements 0 - Medications Active Medications: Active Medications Generic Name Dose Route Start Last Admin Trade Name Freq PRN Reason Stop Dose Admin Acetaminophen 650 mg 08/26/16 16:19 Tylenol 650 Mg Supp RC Q4H PRN Fever >100.4 F Arformoterol Tartrate 15 mcg 08/26/16 20:00 09/08/16 07:32 Brovana IH 15 mcg [id number] DENIZ Administration Artificial Tears 0 ml 09/01/16 12:30 09/08/16 00:16 Artificial Tears OU Not Given Q6H DENIZ Aspirin 150 mg 09/04/16 10:00 09/07/16 09:45 Aspirin Supp RC 150 mg DAILY DENIZ Administration Budesonide 0.5 mg 08/26/16 20:00 09/08/16 07:32 Pulmicort Respules IH 0.5 mg [id number] DENIZ Administration Diltiazem HCl 5 mg 09/07/16 10:10 Cardizem IVP Q2 PRN Heart rate Hydralazine HCl 10 mg 09/02/16 18:00 09/07/16 21:48 Apresoline PO Not Given QID DENIZ Heparin Sodium/Sodium Chloride 250 mls @ 13.904 mls/hr 09/01/16 07:19 08:00 Heparin 56419 Units/250ml 1/2 Normal Saline IV 14 units/kg/hr .[id number] PRN 10.815 mls/hr ADJUST RATE PER PROTOCOL Administration Protocol 18 UNITS/KG/HR Meropenem 500 mg/ Sodium 100 mls @ 100 mls/hr 09/02/16 10:15 09/07/16 21:50 Chloride IVPB 09/09/16 10:16 100 mls/hr Q12 DENIZ Administration Protocol Linezolid 600 mg in 300 mls @ 200 mls/hr 09/05/16 10:15 09/07/16 21:55 Zyvox 600mg/300ml D5w IVPB 09/12/16 10:16 200 mls/hr Q12 DENIZ Administration Protocol Insulin Human Lispro 0 units 08/26/16 22:00 09/08/16 07:34 Humalog Low SC Not Given ACHS DENIZ Protocol Isosorbide Dinitrate 10 mg 09/02/16 18:30 09/08/16 02:30 Isordil PO Not Given Q8H DENIZ Metoprolol Tartrate 5 mg 08/29/16 14:00 09/08/16 02:00 Lopressor IVP Not Given Q6H DENIZ Pantoprazole Sodium 40 mg 08/26/16 22:00 09/07/16 21:54 Protonix Inj IVP 40 mg Q12 DENIZ Administration Saliva Substitute 0 ml 09/06/16 16:00 09/08/16 04:00 Saliva Substitute PO Not Given Q4 DENIZ Tetrahydrozoline HCl/Zinc Sulfate 0 ml 08/30/16 21:02 Visine 0.05% Opht Soln OU BID PRN Dry eyes Vitamin A 1 ea 09/04/16 22:00 09/07/16 21:54 Vitamin A & D Oint Ud Foilpak TOP 1 ea Q12 DENIZ Administration - Patient Studies Lab Studies: Microbiology Studies 09/06/16 14:45 Blood Culture - Preliminary Blood-During Dialysis NO GROWTH AFTER 24 HOURS 09/06/16 18:55 C. difficile Antigen & Toxin A,B (M - Final Stool 09/05/16 11:32 Blood Culture - Preliminary Blood-Venous NO GROWTH AFTER 48 HOURS 09/05/16 11:17 Blood Culture - Preliminary Blood-Venous NO GROWTH AFTER 48 HOURS 09/05/16 15:35 Gram Stain - Final Sputum Sputum Culture - Final Yeast Species Lab Studies 09/08/16 09/08/16 09/08/16 Range/Units 05:30 05:30 05:30 WBC (4.5-11.0) 10^3/ul RBC (3.5-6.1) 10^6/uL Hgb (14.0-18.0) gm/dL Hct (42.0-52.0) % MCV (80.0-105.0) fL MCH (25.0-35.0) pg MCHC (31.0-37.0) g/dl RDW (11.5-14.5) % Plt Count (120.0-450.0) 10^3/uL PT 12.2 H (9.9-11.8) Seconds INR 1.13 H (0.93-1.08) APTT 35.9 H (23.7-30.8) Seconds pCO2 36 (35-45) mm/Hg pO2 204.0 H (80-100) mm/Hg HCO3 22.8 (21-28) mmol/L ABG pH 7.41 (7.35-7.45) ABG Total CO2 23.9 (22-28) mmol.L ABG O2 Saturation 99.9 H (95-98) % ABG O2 Content 20.9 (15-23) ML/dl ABG Base Excess -1.4 (-2.0-3.0) mmol/L ABG Hemoglobin 14.9 (11.7-17.4) g/dL ABG Carboxyhemoglobin 1.3 (0.5-1.5) % POC ABG HHb (Measured) 0.1 (0-5) % ABG Methemoglobin 0.8 (0.0-3.0) % ABG O2 Capacity 20.9 (16-24) mL/dl Hgb O2 Saturation 97.8 (95.0-98.0) % FiO2 100.0 % Sodium 135 (132-148) mmol/L Potassium 4.1 (3.6-5.0) mmol/L Chloride 99 (98-107) mmol/L Carbon Dioxide 25 (21-33) mmol/L Anion Gap 15 (10-20) BUN 47 H (7-21) mg/dL Creatinine 4.0 H (0.5-1.4) mg/dL Est GFR ( Amer) 17 Est GFR (Non-Af Amer) 14 POC Glucose (mg/dL) (65-110) mg/dL Random Glucose 137 H (70-110) mg/dL Calcium 7.6 L (8.4-10.5) mg/dL Phosphorus 6.1 H (2.5-4.5) mg/dL Magnesium 2.1 (1.7-2.2) mg/dL Total Bilirubin 0.7 (0.2-1.3) mg/dL AST 28 (15-59) U/L ALT 37 (7-56) U/L Alkaline Phosphatase 83 (38-133) U/L Total Protein 5.0 L (5.8-8.3) g/dL Albumin 2.1 L (3.0-4.8) g/dL Globulin 3.0 gm/dL Albumin/Globulin Ratio 0.7 L (1.1-1.8) 09/08/16 09/07/16 09/07/16 Range/Units 05:30 11:12 07:10 WBC 23.9 H (4.5-11.0) 10^3/ul RBC 3.61 (3.5-6.1) 10^6/uL Hgb 10.6 L (14.0-18.0) gm/dL Hct 31.8 L (42.0-52.0) % MCV 88.1 (80.0-105.0) fL MCH 29.4 (25.0-35.0) pg MCHC 33.3 (31.0-37.0) g/dl RDW 16.9 H (11.5-14.5) % Plt Count 151 (120.0-450.0) 10^3/uL PT (9.9-11.8) Seconds INR (0.93-1.08) APTT (23.7-30.8) Seconds pCO2 (35-45) mm/Hg pO2 (80-100) mm/Hg HCO3 (21-28) mmol/L ABG pH (7.35-7.45) ABG Total CO2 (22-28) mmol.L ABG O2 Saturation (95-98) % ABG O2 Content (15-23) ML/dl ABG Base Excess (-2.0-3.0) mmol/L ABG Hemoglobin (11.7-17.4) g/dL ABG Carboxyhemoglobin (0.5-1.5) % POC ABG HHb (Measured) (0-5) % ABG Methemoglobin (0.0-3.0) % ABG O2 Capacity (16-24) mL/dl Hgb O2 Saturation (95.0-98.0) % FiO2 % Sodium (132-148) mmol/L Potassium (3.6-5.0) mmol/L Chloride (98-107) mmol/L Carbon Dioxide (21-33) mmol/L Anion Gap (10-20) BUN (7-21) mg/dL Creatinine (0.5-1.4) mg/dL Est GFR ( Amer) Est GFR (Non-Af Amer) POC Glucose (mg/dL) 171 H 159 H (65-110) mg/dL Random Glucose (70-110) mg/dL Calcium (8.4-10.5) mg/dL Phosphorus (2.5-4.5) mg/dL Magnesium (1.7-2.2) mg/dL Total Bilirubin (0.2-1.3) mg/dL AST (15-59) U/L ALT (7-56) U/L Alkaline Phosphatase (38-133) U/L Total Protein (5.8-8.3) g/dL Albumin (3.0-4.8) g/dL Globulin gm/dL Albumin/Globulin Ratio (1.1-1.8) Laboratory Results - last 24 hr 09/07/16 09/07/16 09/08/16 07:10 11:12 05:30 WBC 23.9 H RBC 3.61 Hgb 10.6 L Hct 31.8 L MCV 88.1 MCH 29.4 MCHC 33.3 RDW 16.9 H Plt Count 151 PT INR APTT pCO2 pO2 HCO3 ABG pH ABG Total CO2 ABG O2 Saturation ABG O2 Content ABG Base Excess ABG Hemoglobin ABG Carboxyhemoglobin POC ABG HHb (Measured) ABG Methemoglobin ABG O2 Capacity Hgb O2 Saturation FiO2 Sodium Potassium Chloride Carbon Dioxide Anion Gap BUN Creatinine Est GFR ( Amer) Est GFR (Non-Af Amer) POC Glucose (mg/dL) 159 H 171 H Random Glucose Calcium Phosphorus Magnesium Total Bilirubin AST ALT Alkaline Phosphatase Total Protein Albumin Globulin Albumin/Globulin Ratio 09/08/16 09/08/16 09/08/16 05:30 05:30 05:30 WBC RBC Hgb Hct MCV MCH MCHC RDW Plt Count PT 12.2 H INR 1.13 H APTT 35.9 H pCO2 36 pO2 204.0 H HCO3 22.8 ABG pH 7.41 ABG Total CO2 23.9 ABG O2 Saturation 99.9 H ABG O2 Content 20.9 ABG Base Excess -1.4 ABG Hemoglobin 14.9 ABG Carboxyhemoglobin 1.3 POC ABG HHb (Measured) 0.1 ABG Methemoglobin 0.8 ABG O2 Capacity 20.9 Hgb O2 Saturation 97.8 FiO2 100.0 Sodium 135 Potassium 4.1 Chloride 99 Carbon Dioxide 25 Anion Gap 15 BUN 47 H Creatinine 4.0 H Est GFR ( Amer) 17 Est GFR (Non-Af Amer) 14 POC Glucose (mg/dL) Random Glucose 137 H Calcium 7.6 L Phosphorus 6.1 H Magnesium 2.1 Total Bilirubin 0.7 AST 28 ALT 37 Alkaline Phosphatase 83 Total Protein 5.0 L Albumin 2.1 L Globulin 3.0 Albumin/Globulin Ratio 0.7 L Critical Care Progress Note - Nutrition Nutrition: Nutrition Category Date Time Status NPO Diet [DIET] Diets 09/04/16 Breakfast Ordered Attending/Attestation - Attestation I have personally seen and examined this patient.: Yes I have fully participated in the care of the patient.: Yes I have reviewed all pertinent clinical information: Yes Notes (Text): 09/08/16 09:17 81 y/o M w/ MODS [place] w/ CKD on HD currently . Fluid overload improving but hypoxia remains an issue secondary to CHF, Atelectasis and Poor effort. On HFNC and BIPAP at night. Keep PAO2> 60. Plans for prison HD, HD tunneled cath today per IR. Elevated WBC, no site of infection of cx has been positive. 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 On Empiric abx per ID, day #7 meropenum. Id plans of 7-14 day course? G.I bleed Resolved after EGD and Ulcers are controlled HGB stable. NGT feeds have stopped pending PEG today per G.I CHF/ NSTEMI/A.Fib S/P Cath. Heparin drip per Cardiology Off DObutamine today . A.Fib- rate controlled off Cardizem drip, PRN cardizem on for now and can start p.o after PEG if needed to keep HR<130. Plans for LTAC placement after procedures are done today . Social Work and Case management on Board. cc time 65 min
[2016-09-08] MEDS: Meropenem 500 MG in Sodium Chloride 0.9% 100 ML IVPB SCH ×2 (09:43→21:50)
[2016-09-08] MEDS: Linezolid 600 mg in D5W 300 ml 600 MG/300 ML BAG IVPB SCH ×2 (09:51→22:23)
[2016-09-08] MEDS: Vitamins A & D Oint UD Foilpak TOP SCH ×2 (10:06→22:31)
--- NOTE | 2016-09-08 10:07 | RAD ---
HISTORY: shortness of breath COMPARISON: 09/07/2016 FINDINGS: LUNGS: Diffuse alveolar infiltrates right greater than left showing slight improvement PLEURA: No significant pleural effusion identified, no pneumothorax apparent. CARDIOVASCULAR: Normal. OSSEOUS STRUCTURES: No significant abnormalities. VISUALIZED UPPER ABDOMEN: Normal. OTHER FINDINGS: None. IMPRESSION: Diffuse alveolar infiltrates right greater than left showing slight improvement
--- NOTE | 2016-09-08 10:51 | PN ---
DATE: 09/08/2016 The patient is in bed in CCU 129, bed 1. No fevers. PHYSICAL EXAMINATION: VITAL SIGNS: Temperature is 98, blood pressure is 130/70, respiratory rate of 25, heart rate of 96. HEENT: Unremarkable. NECK: Supple. LUNGS: Have decreased breath sounds. HEART: Normal S1, S2. ABDOMEN: Soft, nontender. LABORATORY DATA: Reveals a white count of 23,000, hemoglobin of 10 and platelets of 151. Chemistrie s reveal the BUN of 47, creatinine of 4.0. Urinalysis is noted. Serology is noted. Microbiology, y east in the sputum. Blood cultures are negative. Review of the medications reveals the patient to be on meropenem and Zyvox. Dr. Rouse's progress note is reviewed. ASSESSMENT AND PLAN: This is an 81-year-old male with severe sepsis who has been treated with health care-associated pneumonia, acute on chronic renal failure, lactic acidosis, non-ST elevation myocardi al infarction in face of acute congestive heart failure, day #7 of Zyvox and meropenem. Cultures neg ative, yeast in the sputum, a colonizer, persistent leukocytosis is concerning. The patient had a CA T scan of the abdomen x 2. No evidence of collection. Blood cultures from the are negative. S tool for Clostridium difficile antigen and toxin are negative. This morning's chest x-ray result is not available. No report. The patient did have a CAT scan of the chest also, which was done on 08/26 . If the leukocytosis persists, may need a repeat CT of the chest and abdomen. Overall prognosis is poor. Kamran Jay MD cc: [id number] TT: 09/08/2016 10:50:32 Confirmation # [id number] Dictation # [id number] jessica
[2016-09-08 11:27] LABS: EOSINOPHIL 1 % (0.0-3.0); NEUTROPHIL 88 % (50.0-70.0)
[2016-09-08 11:28] LABS: ANISOCYTOSIS 1+; HYPOCHROMIA 1+; LARGE PLATELETS PRESENT; PLATELET ESTIMATE NORMAL (NORMAL); POLYCHROMASIA SLIGHT
--- NOTE | 2016-09-08 12:22 | PN ---
DATE: 09/07/2016 SUBJECTIVE: The patient is seen in the ICU. His lying in bed. On high flow oxygen. PHYSICAL EXAMINATION: VITAL SIGNS: Blood pressure 107/53, heart rate 70 per minute, respiratory rate 18-20, temperature 98. NECK: Supple, no JVD. LUNGS: Bilateral equal air entry. No rales CVS: SiS2 Irregularly Irregular EXTREMITIES: 1+ pitting edema of the lower extremities. ++ edema of LE LABORATORY DATA: WBC 23.5, hemoglobin 9.6, hematocrit 28, platelets 131. Sodium 135, potassium 3.8, chloride 101, CO2 of 28, BUN 36, creatinine 3.1, glucose 167, calcium 7.3, phosphorus 5.0, albumin 1.9, corrected calcium is 8.7 , AST 19, ALT 37. Sputum culture: Yeast. Blood cultures: No growth. MEDICATIONS: List reviewed including aspirin, Cardizem, heparin drip, insulin, meropenem, Protonix, Tylenol, Zyvox. ASSESSMENT AND PLAN: 1. Remains critically ill, multiorgan dysfunction 2. Respiratory failure. 3. Sepsis/pneumonia. 4. Acute kidney injury superimposed on chronic kidney disease stage IV, remains dialysis dependent. 5. Leukocytosis. 6. Atrial fibrillation. 7. Multifactorial anemia, recent GI bleed, anemia of chronic kidney disease. 8. Severe hypoalbuminemia. PLAN: 1. Agree with plans for PEG placement for feeding. 2. The patient will require a Perm-A-Cath prior to transfer out to LTAC. 3. The patient will likely need chronic dialysis. 4. Antibiotics as per infectious disease recommendations. 5. Consider antifungal treatment. 6. Discussed with ICU residents at length. 7. No dialysis today. 8. Discussed with dialysis staff. More than 35 minutes spent in the care of this critically ill patient. Aundrea Alcazar MD cc: [id number] TT: 09/08/2016 12:21:32 Confirmation # [id number] Dictation # [id number] jn MTDD
--- NOTE | 2016-09-08 12:33 | PN ---
DATE: 09/08/2016 SUBJECTIVE: The patient is seen lying in bed in the ICU. He is on high flow oxygen. Earlier today, the patient had some respiratory distress, was thought to have a mucous plug. He is more comfortabl e at this time. The patient is scheduled for having a PEG placement at 1 p.m. today. The patient is also scheduled to have a Perm-A-Cath put in. His temporary catheter will be removed. The patient remains afebrile. He remains on heparin drip, which is on hold at this point. PHYSICAL EXAMINATION: GENERAL: Elderly male lying in bed in the ICU. VITAL SIGNS: Blood pressure 136/57, heart rate 96, respiratory rate 25, temperature 98.7. HEENT: Normocephalic, atraumatic, positive pallor. NECK: Supple, no JVD. LUNGS: Bilateral equal air entry, equal expansion, no rales appreciated. CARDIAC: S1, S2, irregularly irregular, no murmur, no rub. ABDOMEN: Soft, nondistended, nontender, bowel sounds present. EXTREMITIES: Trace lower extremity edema, 1+ pitting edema of the upper extremities. INTAKE AND OUTPUT: 40/540. LABORATORY DATA: WBC 23.9, hemoglobin 10.6, hematocrit 31.8, platelets 151. Polys 88%, lymphocytes 5. Sodium 135, potassium 4.1, chloride 99, CO2 25, BUN 47, creatinine 4.0, glucose 137, calcium 7.6, phosphorus 6.1, magnesium 2.1. Albumin 2.1. Sputum culture: Yeast. Blood culture: No growth. Chest x-ray: Diffuse alveolar infiltrates, right greater than left. ASSESSMENT AND PLAN: 1. Multiorgan dysfunction. 2. Respiratory failure. 3. Healthcare associated pneumonia. 4. Atrial fibrillation. 5. Acute kidney injury superimposed on chronic kidney disease stage IV, dialysis dependent. 6. Malnutrition, hypoalbuminemia. 7. Hyperphosphatemia. 8. Anemia, multifactorial, anemia of chronic kidney disease plus recent gastrointestinal bleed. PLAN: 1. PEG placement today. 2. Removal of temporary catheter. 3. Placement of tunneled catheter. 4. Dialysis today, 3 hours, potassium 2, calcium 2.5 ____, ultrafiltration about 2 kilograms. 5. Continue antibiotics for healthcare-associated pneumonia. 6. Consider antifungals. 7. Senior Living prognosis is grim. 8. Case discussed with ICU team at length. 9. Case discussed with ICU nursing staff. 10. Case discussed with dialysis staff. More than 35 minutes spent in the care of this critically ill patient. Aundrea Alcazar MD cc: [id number] TT: 09/08/2016 12:32:33 Confirmation # [id number] Dictation # [id number] alberto
[2016-09-08] MEDS ORDERED: Etomidate 20 mg/10ml Inj IV ONE (13:08)
[2016-09-08] MEDS ORDERED: Propofol 10 mg/ml Inj (20 ML) ONE (13:12)
--- NOTE | 2016-09-08 14:55 | PN ---
DATE: 09/08/2016 The patient underwent gastrostomy feeding tube placement today. He is currently on high nasal O2, at rial fibrillation on the monitor with controlled heart rate. PHYSICAL EXAMINATION: VITAL SIGNS: Blood pressure 136/57, heart rate 96, temperature 98.7, respirations 25. HEENT: Pale conjunctivae. CHEST: Absent breath sounds at the bases. HEART: S1, S2 . ABDOMEN: Soft. LABORATORIES: CBC: WBC 23.9, hemoglobin 10.6, hematocrit 31.8, platelet count 151,000. Today's BUN and creatinine are 47 and 4.0, blood sugar is 137. Today's chest x-ray report: Diffuse alveolar infiltrates, right greater than left, showing slight im provement. ASSESSMENT: 1. Ischemic cardiomyopathy. 2. Advanced renal insufficiency. 3. Anemia. 4. Consider underlying sepsis. 5. Chronic atrial fibrillation. 6. Coronary artery disease, status post percutaneous coronary intervention 2 months ago. RECOMMENDATIONS: Continue hydralazine at 10 mg q.i.d., aspirin suppository 150 mg daily, Cardizem at 5 mg intravenously q. 2 hours p.r.n., intravenous heparin infusion, Lopressor 5 mg intravenously q. 6 hours, IV meropenem at 500 mg twice a day and IV Zyvox at 600 mg intravenously q. 12 hours. Once g astrostomy tube intake is resumed, Lopressor and aspirin will be converted to oral formulas. Carl Jay MD cc: [id number] TT: 09/08/2016 14:54:41 Confirmation # [id number] Dictation # [id number] en
[2016-09-08] MEDS ORDERED: Lidocaine 2% Inj (20ml) ONE ×2 (17:39→18:03)
[2016-09-08] MEDS ORDERED: Heparin 0 ML IV ONE (17:39)
[2016-09-08] MEDS ORDERED: Amiodarone 150 mg/D5W 100 ml 150 MG/100 ML BAG IVPB ONE (17:43)
[2016-09-08] MEDS ORDERED: Amiodarone 360 mg/D5W 200 ml 360 MG/200 ML BAG IV SCH (18:00)
--- NOTE | 2016-09-08 21:44 | PN ---
DATE: 09/08/2016 REFERRING PHYSICIAN: Dr. Myers. SUBJECTIVE: He is on nasal cannula oxygen, much more awake and alert, getting dialysis. Received G- tube earlier today. Mild cough. No sputum production, no hemoptysis. No hematemesis, no melena, no dysuria. Does have lower extremity swelling. OBJECTIVE: GENERAL: No acute distress. VITAL SIGNS: Temperature is 98, heart rate 76, respiratory rate 26, blood pressure 170/51, pulse ox 93% on nasal cannula. HEENT: Moist mucous membranes. Crowded airway. Mallampati score is 4. NECK: Supple. No JVD. LUNGS: Bilateral crackles and rhonchi. HEART: S1, S2 irregular. ABDOMEN: Soft, nontender. No organomegaly. EXTREMITIES: There is trace edema. NEUROLOGIC: Arousable, follows simple commands. MEDICATIONS: Reviewed. He is on hydralazine 10 mg q.i.d., artificial tears to both eyes, aspirin 15 0 mg daily, Brovana 15 mcg inhaled twice a day, Cardizem 5 mg q. 12 hours p.r.n., insulin coverage, I sordil 10 mg q. 8 hours, metoprolol tartrate 5 mg q. 6 hours, meropenem 500 mg q. 12 hours, nasal kath ine 1 spray each nostril q. 12 hours, Protonix 40 mg twice a day, artificial saliva q. 4 hours p.r.n. , Tylenol on a p.r.n. basis, vitamin K q. 12 hours, Zyvox 600 mg twice a day. LABORATORY DATA: Shows hemoglobin 10.6, hematocrit 31.8, WBC is 24,000, platelet is 151. INR 1.13, PTT is 36. Blood gases shows pH 7.41, pCO2 of 36, pO2 of 204, that is on 100% oxygen. Sodium 137, p otassium 4.1, chloride 99, bicarbonate 25, BUN 47, potassium 4.0, glucose 137, calcium is 7.6, phosph orus 6.1, magnesium 2.1, AST 28, ALT 37, alkaline phosphatase is 83, albumin 2.1. Chest x-ray this m orning shows bilateral infiltrates. IMPRESSION AND PLAN: Multiorgan failure, respiratory failure requiring p.r.n. noninvasive ventilatio n, cardiomyopathy with significant coronary artery disease, resolving pulmonary edema, aspiration pne umonia, renal failure on dialysis, peptic ulcer disease, status post gastrointestinal bleed, atrial f ibrillation, anemia. Case discussed with the nursing staff. I also spoke to medical physics researcher in [place]. Keep head elevated at 45 degrees. Use noninvasive ventilation as needed basis. Aspiration pre cautions, bronchodilator. Gastric prophylaxis. Sequential compression device to lower extremity. F eeding will be started tomorrow once cleared by GI. Continue antibiotics. Follow up chest x-ray, CB C, CMP, ABG in the morning. Critical care time is more than 35 minutes. Will follow with you. Shawn Ruff MD cc: [phone] TT: 09/08/2016 21:43:57 Confirmation # [id number] Dictation # [id number] jessica
[2016-09-09] MEDS: Saliva Substitute 44.3 ML PO SCH ×6 (00:01→20:00)
[2016-09-09] MEDS: Aritificial Tears (15ml) OU SCH ×4 (00:04→17:59)
[2016-09-09] MEDS: Metoprolol 1 mg/ml Inj IVP SCH ×2 (02:34→09:00)
[2016-09-09 04:58] LABS: HEMATOCRIT 31.4 % (42.0-52.0); MEAN CELL VOLUME 89.2 fL (80.0-105.0); MEAN CORPUSCULAR HEMOGLOBIN 29.5 pg (25.0-35.0); MEAN CORPUSCULAR HGB CONC 33.1 g/dl (31.0-37.0); MEAN PLATELET VOLUME 13.7 fl (7.0-11.0); PLATELET COUNT 153 [, 10^3/uL] (120.0-450.0); RED CELL DISTRIBUTION WIDTH 16.8 % (11.5-14.5)
[2016-09-09 04:59] LABS: ALB/GLOB RATIO 0.7 (1.1-1.8); BILIRUBIN,TOTAL 0.7 mg/dL (0.2-1.3); CALCIUM 7.6 mg/dL (8.4-10.5); MAGNESIUM 2.1 mg/dL (1.7-2.2); PHOSPHOROUS 5.6 mg/dL (2.5-4.5); POTASSIUM 3.9 mmol/L (3.6-5.0)
[2016-09-09 05:04] LABS: INR 1.21 (0.93-1.08); PARTIAL THROMBOPLASTIN TIME 36.2 Seconds (23.7-30.8)
[2016-09-09 05:05] LABS: ADD MANUAL DIFF? YES
[2016-09-09 06:10] LABS: ARTERIAL BLOOD GAS HCO3 25.3 mmol/L (21-28); ARTERIAL BLOOD GAS O2 CAPACITY 14.7 mL/dl (16-24); ARTERIAL BLOOD GAS O2 CONTENT 14.2 ML/dl (15-23); ARTERIAL BLOOD GAS PH 7.42 (7.35-7.45); ARTERIAL BLOOD HGB O2 SAT 94.1 % (95.0-98.0); CARBOXYHEMOGLOBIN 1.8 % (0.5-1.5); METHEMOGLOBIN 1.2 % (0.0-3.0)
[2016-09-09 06:32] LABS: BAND 4 % (0-2); EOSINOPHIL 4 % (0.0-3.0); NEUTROPHIL 81 % (50.0-70.0); PLATELET ESTIMATE NORMAL (NORMAL)
[2016-09-09] MEDS: Arformoterol 15 mcg/2 ml Inh Sol IH SCH ×2 (07:51→20:23)
--- NOTE | 2016-09-09 08:02 | PN ---
DATE: 09/08/2016 SUBJECTIVE: The patient is seen and examined on the bedside, still having noninvasive ventilation. According to nursing staff, today the patient will go for G-tube placement and for trach. No sputum production. No fever, no chills , no melena, no dysuria. Has trace lower extremity swelling. I reviewed all 12 systems, within normal limits except noted above. PHYSICAL EXAMINATION: VITAL SIGNS: Temperature 98, heart rate 76, respiratory rate 26, blood pressure 170/50, and pulse oximetry 93% on nasal cannula. HEENT: Head normocephalic, atraumatic. Eyes: PERRLA. Extraocular muscles intact. Conjunctivae clear. Nose patent. Mucous membranes moist. NECK: Supple. No carotid bruit, JVD or thyromegaly. CHEST: Bilaterally symmetrical. HEART: S1, S2 positive. LUNGS: Bilateral crackles and rhonchi. HEART: S1, S2 positive. ABDOMEN: Soft, nontender. No organomegaly. EXTREMITIES: Trace edema. No cyanosis. NEUROLOGIC: The patient is awake, follows simple commands. MEDICATIONS: Hydralazine, eyedrops, Brovana, Cardizem, insulin coverage. LABORATORY DATA: White blood cell is 24,000, hemoglobin 10.6, hematocrit 31.8, platelets 151. Sodium 137, potassium 4.1, BUN 25, creatinine 4.0, AST 28, ALT 37. Chest x-ray this morning shows bilateral infiltrates. ASSESSMENT AND PLAN: The patient is an 81-year-old male with multiple medical problems, multiorgan failure, respiratory failure requiring noninvasive ventilation, tried to wean the patient for noninvasive ventilation, but could not. Now today, the patient went for tracheostomy and gastrostomy tube. Cardiomyopathy with significant coronary artery disease, resolving, pulmonary edema, aspiration pneumonia, renal failure on hemodialysis, peptic ulcer disease , status post gastrointestinal bleeding, atrial fibrillation. Discussion done with nursing staff. Reviewed Dr. Ruff's notes. Keep head elevated to 45 degrees. Use noninvasive ventilation as needed basis, aspiration precautions, gastric prophylaxis. Sequential compression devices to the lower extremities. Feeding will be started tomorrow once gastroenterology cleared the percutaneous endoscopic gastrostomy tube is okay to use. Continue antibiotics. Repeat labs. Continue hydralazine for blood pressure, Brovana for breathing, Cardizem for blood pressure, insulin sliding scale with coverage, metoprolol for blood pressure, meropenem antibiotics as per infectious disease, Protonix for gastrointestinal prophylaxis. Artificial saliva for moistness. Zyvox antibiotics also. Gastrointestinal and deep venous thrombosis prophylaxis. We will follow up. Sana Myers MD cc: [id number] TT: 09/09/2016 08:01:42 Confirmation # [id number] Dictation # [id number] tn MTDD
[2016-09-09] MEDS: Insulin Lispro (humaLOG) LOW Coverage SC SCH ×4 (08:15→22:05)
--- NOTE | 2016-09-09 09:26 | PN ---
DATE: 09/08/2016 This patient was seen and evaluated earlier. Discussed with the patient's son who was at bedside. I nformed consent was obtained for the feeding tube. The patient brought the Do not resuscitate/do not intubate which was cancelled for the procedure. The patient had endoscopy tube placement under deep anesthesia by the anesthesiologist. A 20-[employer] PEG was placed by ____ pull technique. The patient also was found to have multiple ulcers in the stomach. 1. Followup of the hemoglobin, hematocrit closely. 2. Transfuse ____ needed. Thank you for allowing us to participate in the care of this patient. Eleonora Dillard MD cc: [id number] TT: 09/09/2016 09:25:36 Confirmation # [id number] Dictation # [id number] alberto
[2016-09-09] MEDS: Linezolid 600 mg in D5W 300 ml 600 MG/300 ML BAG IVPB SCH ×2 (09:40→22:11)
[2016-09-09] MEDS: Meropenem 500 MG in Sodium Chloride 0.9% 100 ML IVPB SCH (09:41)
[2016-09-09] MEDS: Vitamins A & D Oint UD Foilpak TOP SCH ×2 (10:20→22:11)
--- NOTE | 2016-09-09 10:31 | PN ---
DATE: 09/09/2016 SUBJECTIVE: The patient is resting in bed, tolerating the BiPAP, seems to be awake at this time. No obvious respiratory distress and O2 saturation is stable. The patient has no significant cough or c omplaints of any pain. PHYSICAL EXAMINATION: VITAL SIGNS: Note that his temperature is 98.5, pulse is 96, respirations are 23, and BP is 132/69. SKIN: Warm and dry. HEAD: Atraumatic, normocephalic. EYES: Reactive to light. EARS, NOSE AND THROAT: Seem to be within normal limits. NECK: Supple. No JVD, no thyroid enlargement, no lymph nodes. HEART: Has regular rate and rhythm, normal S1, S2. LUNGS: Reveal mild rhonchi bilaterally. ABDOMEN: Soft, decreased bowel sounds. GENITALIA AND RECTAL: Deferred. MUSCULOSKELETAL: No joint deformities. EXTREMITIES: Reveal positive lower extremity edema and upper extremity edema. NEUROLOGIC: The patient is awake, does seem to move the extremities. LABORATORY: As far as laboratories of concern, his white count is 20, hemoglobin is 10.4, hematocrit 31.4 with platelets of 153,000. Arterial blood gas reveals a pH of 7.42, pCO2 of 39, pO2 of 78. So dium is 135, potassium 3.9, chloride 101, CO2 of 26, BUN of 41, creatinine of 3.6. IMPRESSION: This patient has respiratory failure with hypoxia requiring BiPAP and O2 support. He rae s a recent myocardial infarction as well as status post gastrointestinal bleed. The patient has end- stage renal disease, hypertension, diabetes, coronary artery disease and a history of cerebrovascular accident. He also is noted to have pulmonary hypertension as well as atrial fibrillation and as per family, he is a DNR/DNI. PLAN: We will continue with Brovana as bronchodilator. The patient is getting his Lopressor and ge tting Protonix and meropenem. He will continue with BiPAP and O2 support and continue with aggressiv e pulmonary toilet. We will continue to treat aggressively along with the other consultants and the primary care doctor. Jamie Quezada MD cc: [id number] TT: 09/09/2016 10:30:43 Confirmation # [id number] Dictation # [id number] tn
--- NOTE | 2016-09-09 12:19 | PN ---
DATE: 09/09/2016 SUBJECTIVE: The patient is seen in the ICU. He is lying in bed. He is on high flow oxygen. He is arousable. He is lethargic, but responsive. He is off the heparin drip. He is off the Cardizem dri p. He had a PEG placed yesterday. He also had a tunneled catheter placed on the right side yesterda y. He received dialysis only for 2 hours. PHYSICAL EXAMINATION: GENERAL: Elderly male lying in bed in the ICU. VITAL SIGNS: Blood pressure 133/68, heart rate 92, respiratory rate 25, temperature 98.1. HEENT: Normocephalic, atraumatic, positive pallor. NECK: Supple, no JVD. LUNGS: Bilateral equal air entry, bilateral rhonchi, basal rales. CARDIAC: S1, S2, irregularly irregular, no murmur, no rub. ABDOMEN: Soft, nondistended, nontender. Bowel sounds are present, positive PEG. EXTREMITIES: 3+ pitting edema of the upper extremities, especially much more swollen right upper ext remity compared to the left, trace lower extremity edema, wrinkling of skin. INTAKE AND OUTPUT: 910/1355. CURRENT MEDICATIONS: Apresoline 10 mg via PEG, Brovana, Cardizem 5 mg q.12 hours p.r.n., Imdur 10 mg , Lopressor, Protonix, Tylenol, linezolid 600 q. 12. LABORATORY DATA: WBC 20, hemoglobin 10.4, hematocrit 31, platelets 153. Sodium 135, potassium 3.9, chloride 101, CO2 of 26, BUN 41, creatinine 3.6, glucose 134, calcium 7.6, phosphorus 5.6, magnesium 2.1, albumin 2.0, corrected calcium is 9.0, AST 26, ALT 38. ASSESSMENT: 1. Multiorgan dysfunction, respiratory failure, acute kidney injury, hypotension, severe hypoalbumin emia. 2. Sepsis, leukocytosis, ? pneumonia. 3. Anemia, multifactorial, anemia of chronic kidney disease, recent gastrointestinal bleed, chronic disease. 4. Hyperphosphatemia, secondary hyperparathyroidism. 5. Coronary artery disease, cardiomyopathy, pulmonary edema. 6. Volume overload. PLAN: 1. The patient was dialyzed yesterday, ultrafiltration of 1300, appears volume overloaded, we will a rrange for dry ultrafiltration today. We will try to remove 2 kg. 2. Remove temporary catheter, the patient had a tunneled catheter placed yesterday. Remove the temp orary dialysis catheter. 3. Continue empiric antibiotics. 4. Follow up cultures. 5. Start PEG feedings when okay as per GI. 6. The patient will require long-term dialysis. 7. Remains critically ill, long-term prognosis is poor. Case discussed at length with ICU residents. Case discussed at length with the dialysis staff. Case discussed at length with ICU nurses. More than 30 minutes was spent in the care of this critica lly ill patient. Aundrea Alcazar MD cc: [id number] TT: 09/09/2016 12:18:56 Confirmation # [id number] Dictation # [id number] tn
[2016-09-09] MEDS ORDERED: Acetylcysteine 20% Inhal Sol (30ml) IH SCH (13:28)
--- NOTE | 2016-09-09 13:48 | PN ---
DATE: 09/09/2016 SUBJECTIVE: The patient is lethargic. He is currently on high flow nasal O2. He is in atrial fibri llation with controlled heart rate. PHYSICAL EXAMINATION: VITAL SIGNS: Blood pressure 133/68, heart rate 91, temperature 98.1. HEENT: Pale conjunctivae. CHEST: Absent breath sounds over the bases. HEART: S1, S2 regular. EXTREMITIES: 1+ pitting edema. LABORATORIES: Today's CBC: WBC 20, hemoglobin 10.4, hematocrit 31.4, platelet count 153,000. Today 's BUN and creatinine are 41 and 3.6, glucose 136, calcium 7.6, phosphorus 5.6. The rest of chemistr y is within normal limit. ASSESSMENT: 1. Status post respiratory failure. 2. Chronic atrial fibrillation. 3. Coronary artery disease. 4. End-stage renal disease on hemodialysis. 5. Anemia. RECOMMENDATIONS: Case was discussed with the medical certification specialist, Dr. Luis, as well as the occ ther . The patient will be maintained on hydralazine at 10 mg via gastrostomy tube q.i.d. I will change aspirin to 81 mg via gastrostomy tube. Continue Inderal at 10 mg q. 8 hours via gastrostomy tube. I will change Lopressor to 25 mg twice a day via gastrostomy tube. Continue IV Zyvox. I recommended to start subcutaneous heparin at 5000 units q. 8 hours to be maintained as the patient is discharged to LTAC. Carl Jay MD cc: [id number] TT: 09/09/2016 13:47:15 Confirmation # [id number] Dictation # [id number] tn
[2016-09-09] MEDS ORDERED: Acetylcysteine 20% Inhal Soln (4ml) IH ONE (15:30)
--- NOTE | 2016-09-09 18:24 | RAD ---
HISTORY: shortness of breath COMPARISON: Comparison chest 09/08/2016 at 5:28 a.m. FINDINGS: LUNGS: Interval placement right IJ dual-lumen catheter with tip in the SVC/RA junction. Pulmonary vascular congestive changes with bilateral lower lobe alveolar-type infiltrates and bilateral effusions left larger than right PLEURA: As above. No pneumothorax apparent. CARDIOVASCULAR: Cardiomegaly. OSSEOUS STRUCTURES: No significant abnormalities. VISUALIZED UPPER ABDOMEN: Normal. OTHER FINDINGS: None. IMPRESSION: Interval placement right IJ dual-lumen catheter with tip in the SVC/RA junction. Pulmonary vascular congestive changes with bilateral lower lobe alveolar-type infiltrates and bilateral effusions left larger than right
--- NOTE | 2016-09-09 18:28 | PN ---
DATE: 09/09/2016 The patient was seen earlier this morning in 129, bed 1. SUBJECTIVE: The patient is responsive; however, very weak. He has BiPAP on. He had an uneventful n ight. PHYSICAL EXAMINATION: VITAL SIGNS: Temperature of 99.5, respiratory rate of 22, heart rate of 100. HEENT: Unremarkable. NECK: Supple. LUNGS: Have decreased breath sounds. HEART: Normal S1, S2. ABDOMEN: Soft, nontender, no organomegaly, no rebound. LABORATORY DATA: Reveals a white count of 20,000, hemoglobin of 10 and platelets of 153. Chemistrie s reveals a BUN of 41, creatinine of 3.6. Urinalysis is noted. Stool occult blood is positive and v ancomycin random from the is 11 and CHEO is negative. The serology is negative. Review of order s: Cardiac cath report is reviewed. Review of orders reveals the patient is on Zyvox and meropenem. Chest x-ray is pending. ASSESSMENT AND PLAN: This is an 81-year-old male with severe sepsis being treated with healthcare-as sociated pneumonia and acute on chronic renal failure, lactic acidosis, non-ST elevation myocardial i nfarction in face of acute systolic congestive heart failure, day #8 of Zyvox and meropenem, now the meropenem has fell off the medication , on Zyvox and the patient's white count is down to 20,000 . The last procalcitonin on the was 3.38. The patient with a creatinine of 3.6 with a chest x- ray from yesterday diffuse alveolar infiltrates, right greater than left improvement. We will restar t the meropenem and follow his WBC count and reorder the Zyvox and follow with you. Kamran Jay MD cc: [phone] TT: 09/09/2016 18:27:46 Confirmation # [id number] Dictation # [id number] mn
[2016-09-09] MEDS: Acetylcysteine 20% Inhal Soln (4ml) IH SCH (20:23)
--- NOTE | 2016-09-09 20:56 | PN ---
DATE: 09/09/2016 SUBJECTIVE: This patient was seen and evaluated earlier. Discussed with the nursing staff. PHYSICAL EXAMINATION: VITAL SIGNS: Temperature is 99.5, heart rate is 108, blood pressure is 90/64. HEENT: Atraumatic, anicteric. NECK: Supple. HEART: S1, S2 heard. LUNGS: Bilateral air entry present, slightly reduced in the base. ABDOMEN: Soft. There was a gastrostomy tube in place. EXTREMITIES: Pneumatic compression present. LABORATORY DATA: Hemoglobin 10.4, hematocrit 31.4, WBC is 20, platelets 153. BUN 41, creatinine 3.6 . IMPRESSION AND PLAN: This is an 81-year-old patient with multiple issues. The patient admitted with gastrointestinal bleeding, status post transfusion. Endoscopy showed multiple gastric ulcers. The patient had acute non-ST segment myocardial infarction, status post cardiac catheterization which angela wed diffuse ischemia. The patient has renal failure on dialysis. Presently, the patient is on BiPAP . Can start the G-tube feeding and also use the G-tube for medications with periodic flush. Check f or residue. Thank you very much for allowing us to participate in the care of the patient. Eleonora Dillard MD cc: [id number] TT: 09/09/2016 20:55:40 Confirmation # [id number] Dictation # [id number] jessica
--- NOTE | 2016-09-09 23:07 | PN ---
DATE: 09/09/2016 REFERRING PHYSICIAN: Dr. Myers. SUBJECTIVE: The patient examined and seen in intensive care unit. He is on noninvasive ventilation, getting dialysis, very lethargic, tachypneic, no hemoptysis, no hematemesis, no hematuria, no diarrh ea, no melena, no leg swelling reported. OBJECTIVE: GENERAL: Acute distress. VITAL SIGNS: Temperature is 98, heart rate is 120, respiratory rate is 30-40, blood pressure 99/60, pulse ox 79% on noninvasive ventilation. NECK: Supple. No JVD. LUNGS: Has a poor air flow with scattered crackles and rhonchi. HEART: S1, S2, irregularly irregular, tachycardic. ABDOMEN: Soft, nontender. No organomegaly. G-tube area looks okay. EXTREMITIES: There is trace edema. NEUROLOGIC: Lethargic. MEDICATIONS: He is on Mucomyst 20% inhaled q. 12 hours, hydralazine 10 mg four times a day, TS q. 6 hours, 1 mg daily, Brovana 15 mcg q. 12 hours, Cardizem 5 mg q. 12 hours p.r.n., heparin 5000 units subQ q. 8 hours, insulin coverage, Isordil 10 mg q. 8 hours, metoprolol tartrate 25 mg t.i .d., meropenem 250 mg q. 12 hours, nasal saline rinse each nostril q.4 hours, Protonix 40 mg q. 12 ho urs, saliva substitute wash q. 4 hours, Tylenol on a p.r.n. basis, vitamin A and D ointment at affect ed areas, Zyvox 600 mg twice a day. LABORATORY DATA: Shows hemoglobin 10.4, hematocrit 31.4, WBC 20,000, and platelet is 153. INR 1.21, PTT is 36. ABG shows pH 7.42, pCO2 of 39/78. This is on nonrebreather with 100% oxygen. Sodium 13 5, potassium 3.9, chloride 101, bicarbonate 26, BUN 41, creatinine 2.6, glucose 134, calcium is 7.6, phosphorus 5.6, magnesium 2.1, AST 26, ALT 38, alkaline phosphatase is 850, albumin is 2.0. Blood cu lture and stool culture, there is no growth. Chest x-ray done today shows an IJ dual lumen catheter, pulmonary vascular congestion, bilateral lower lobe infiltrates, bilateral effusion. IMPRESSION AND PLAN: Multiorgan failure, respiratory failure, on noninvasive ventilation, cardiomyop athy, significant coronary artery disease, pulmonary edema, has aspiration pneumonia, renal failure, dialysis dependent, peptic ulcer disease, status post gastrointestinal bleed, atrial fibrillation and anemia. The patient has a very poor prognosis, DNR and DNI, on noninvasive ventilation. Family con tinuation of dialysis. Will continue bronchodilator, antibiotics, gastric prophylaxis, supportive ca re. Follow up labs in the morning. Will follow with you. Shawn Ruff MD cc: [phone] TT: 09/09/2016 23:06:19 Confirmation # [id number] Dictation # [id number] mn
--- NOTE | 2016-09-10 01:56 | CP.PCM.PN ---
Subjective - Date & Time of Evaluation Date of Evaluation: 09/08/16 Time of Evaluation: 13:20 - Subjective Subjective: Appears comfortable Objective - Vital Signs/Intake and Output Vital Signs (last 24 hours): Temp Pulse Resp BP Pulse Ox 100 F H 108 H 30 H 123/53 L 99 09/09/16 20:00 09/09/16 23:00 09/09/16 23:00 09/09/16 23:00 09/09/16 23:00 Intake and Output: 09/09/16 09/10/16 18:59 06:59 Intake Total 430 Output Total 2040 Balance -1610 - Medications Medications: Current Medications Acetaminophen (Tylenol 650 Mg Supp) 650 mg RC Q4H PRN PRN Reason: Fever >100.4 F Last Admin: 09/10/16 00:19 Dose: 650 mg Acetylcysteine (Acetylcysteine 20%) 3 ml IH BID [facility] Last Admin: 09/09/16 20:23 Dose: 3 ml Arformoterol Tartrate (Brovana) 15 mcg IH [id number] [facility] Last Admin: 09/09/16 20:23 Dose: 15 mcg Artificial Tears (Artificial Tears) 0 ml OU Q6H [facility] Last Admin: 09/09/16 17:59 Dose: 1 drop Aspirin (Aspirin Chewable) 81 mg PO DAILY [facility] Diltiazem HCl (Cardizem) 5 mg IVP Q2 PRN PRN Reason: Heart rate Heparin Sodium (Porcine) (Heparin) 5,000 units SC Q8 YUVAL PRN Reason: Protocol Last Admin: 09/09/16 22:04 Dose: 5,000 units Hydralazine HCl (Apresoline) 10 mg PEG QID [facility] Last Admin: 09/09/16 22:03 Dose: 10 mg Linezolid (Zyvox 600mg/300ml D5w) 600 mg in 300 mls @ 200 mls/hr IVPB Q12 YUVAL PRN Reason: Protocol Stop: 09/12/16 10:16 Last Admin: 09/09/16 22:11 Dose: 200 mls/hr Meropenem 250 mg/ Sodium (Chloride) 100 mls @ 100 mls/hr IVPB Q12 [facility]UVAL PRN Reason: Protocol Stop: 09/15/16 22:01 Last Admin: 09/09/16 22:05 Dose: 100 mls/hr Insulin Human Lispro (Humalog Low) 0 units SC ACHS [facility] PRN Reason: Protocol Last Admin: 09/09/16 22:05 Dose: Not Given Isosorbide Dinitrate (Isordil) 10 mg PEG Q8H [facility] Last Admin: 09/09/16 17:40 Dose: 10 mg Metoprolol Tartrate (Lopressor) 25 mg PO BID [facility] Last Admin: 09/09/16 17:38 Dose: 25 mg Pantoprazole Sodium (Protonix Inj) 40 mg IVP Q12 [facility] Last Admin: 09/09/16 22:08 Dose: 40 mg Saliva Substitute (Saliva Substitute) 0 ml PO Q4 [facility] Last Admin: 09/09/16 20:00 Dose: 1 ml Sodium Chloride ([place] Nasal [place]) 1 ml NS Q4 [facility] Last Admin: 09/09/16 20:00 Dose: 1 spray Tetrahydrozoline HCl/Zinc Sulfate (Visine 0.05% Opht Soln) 0 ml OU BID PRN PRN Reason: Dry eyes Vitamin A (Vitamin A & D Oint Ud Foilpak) 1 ea TOP Q12 [facility] Last Admin: 09/09/16 22:11 Dose: 1 ea - Labs Labs: 09/09/16 04:40 09/09/16 04:40 PT 13.1 Seconds (9.9-11.8) H 09/09/16 04:40 INR 1.21 (0.93-1.08) H 09/09/16 04:40 APTT 36.2 Seconds (23.7-30.8) H 09/09/16 04:40 - Head Exam Head Exam: ATRAUMATIC - Eye Exam Eye Exam: Normal appearance - ENT Exam ENT Exam: Mucous Membranes Dry - Respiratory Exam Respiratory Exam: NORMAL BREATHING PATTERN - Cardiovascular Exam Cardiovascular Exam: +S1, +S2 - GI/Abdominal Exam GI & Abdominal Exam: Normal Bowel Sounds - Extremities Exam Extremities Exam: Pedal Edema Assessment and Plan (1) Leukocytosis Assessment & Plan: on antibiotics Status: Acute (2) Anemia Assessment & Plan: chronic disease, and renal disease GI bleeding resolved H/H improved Status: Acute (3) ITP (idiopathic thrombocytopenic purpura) Assessment & Plan: normal plt count, Promacta on hold Status: Acute
[2016-09-10 06:10] LABS: ARTERIAL BLOOD GAS HCO3 20.1 mmol/L (21-28); ARTERIAL BLOOD GAS O2 CAPACITY 13.1 mL/dl (16-24); ARTERIAL BLOOD GAS PH 7.42 (7.35-7.45); ARTERIAL BLOOD HGB O2 SAT 96.5 % (95.0-98.0); CARBOXYHEMOGLOBIN 1.8 % (0.5-1.5); HHB 0.7 % (0-5)
[2016-09-10] MEDS: Aritificial Tears (15ml) OU SCH ×4 (06:35→22:16)
[2016-09-10] MEDS: Saliva Substitute 44.3 ML PO SCH ×6 (06:37→22:22)
[2016-09-10 07:04] LABS: ALB/GLOB RATIO 0.7 (1.1-1.8); BILIRUBIN,TOTAL 0.9 mg/dL (0.2-1.3); CALCIUM 7.7 mg/dL (8.4-10.5); MAGNESIUM 2.2 mg/dL (1.7-2.2); PHOSPHOROUS 6.5 mg/dL (2.5-4.5); POTASSIUM 4.1 mmol/L (3.6-5.0); TOTAL PROTEIN 4.9 g/dL (5.8-8.3)
[2016-09-10 07:13] LABS: INR 1.31 (0.93-1.08); PARTIAL THROMBOPLASTIN TIME 35.8 Seconds (23.7-30.8)
[2016-09-10 07:18] LABS: HEMATOCRIT 31.3 % (42.0-52.0); MEAN CELL VOLUME 88.2 fL (80.0-105.0); MEAN CORPUSCULAR HEMOGLOBIN 30.1 pg (25.0-35.0); MEAN CORPUSCULAR HGB CONC 34.2 g/dl (31.0-37.0); PLATELET COUNT 93 [, 10^3/uL] (120.0-450.0); RED CELL DISTRIBUTION WIDTH 16.4 % (11.5-14.5)
[2016-09-10 07:30] LABS: ADD MANUAL DIFF? YES; WHITE BLOOD COUNT 33.2 [, 10^3/ul] (4.5-11.0)
[2016-09-10] MEDS: Acetylcysteine 20% Inhal Soln (4ml) IH SCH ×3 (07:33→20:40)
[2016-09-10] MEDS: Arformoterol 15 mcg/2 ml Inh Sol IH SCH ×2 (07:34→20:40)
[2016-09-10] MEDS: Insulin Lispro (humaLOG) LOW Coverage SC SCH ×4 (07:50→22:22)
--- NOTE | 2016-09-10 08:25 | PN ---
DATE: 09/09/2016 The patient is an 81-year-old male. The patient was seen and examined on 2016. The patient is still in the ICU, is getting noninvasive ventilation and getting dialysis. Very lethargic, tachypneic. No fever, no chills. No hematuria, no hematochezia. No hemoptysis, no hematemesis. No nausea, vomiting , diarrhea. The patient is not able to give a review of systems. PHYSICAL EXAMINATION: VITAL SIGNS: Temperature 98, heart rate 120, respiratory rate 30, blood pressure 99/60, pulse oximetry 79% on noninvasive ventilator. HEENT: Head normocephalic, atraumatic. Eyes closed. Nose patent. Mucous membranes moist. NECK: Supple. No carotid bruits, no JVD, no thyromegaly. LUNGS: Has poor airflow with scattered crackles and rhonchi. HEART: S1, S2 positive, irregularly irregular, tachycardia. ABDOMEN: Soft, nontender, no organomegaly. Has G-tube, area looks okay. EXTREMITIES: Trace edema. NEUROLOGIC: The patient is awake, lethargic, is hard to complete full neurological examination. MEDICATIONS: Mucomyst, hydralazine, Brovana, Cardizem, heparin, metoprolol, meropenem. LABORATORIES: Hemoglobin 10.4, hematocrit 31.4, white blood cells noted , platelets 153. Sodium 135, potassium 3.9, BUN 41, creatinine 2.6, AST 26, ALT 38. ASSESSMENT AND PLAN: The patient is an 81-year-old male with multiorgan failure , respiratory failure, now extubated, now is on noninvasive ventilation, dysphagia, has percutaneous endoscopic gastrostomy tube, getting his feeding with percutaneous endoscopic gastrostomy tube, cardiomyopathy, coronary artery disease, pulmonary edema, has aspiration pneumonia, renal failure, dialysis dependent, peptic ulcer disease, status post gastrointestinal bleeding, atrial fibrillation. Prognosis very poor. The patient is Do Not Resuscitate and Do Not Intubate, is on noninvasive ventilation. Family knows that patient is very sick. Continue dialysis, continue bronchodilators, antibiotics. Continue hydralazine for blood pressure, Brovana for breathing, Cardizem for blood pressure, deep venous thrombosis prophylaxis, metoprolol for high blood pressure, meropenem for sepsis, Protonix for gastrointestinal prophylaxis. Will repeat labs. Will follow up. Sana Myers MD cc: [id number] TT: 09/10/2016 08:25:36 Confirmation # [id number] Dictation # [id number] en MTDD
[2016-09-10 08:49] LABS: LARGE PLATELETS PRESENT; NEUTROPHIL 94 % (50.0-70.0); PLATELET ESTIMATE LOW (NORMAL)
--- NOTE | 2016-09-10 09:55 | PN ---
DATE: 09/10/2016 SUBJECTIVE: The patient is resting in bed with BiPAP and oxygen support. He is resting fairly comfo rtable with the support of the mask and oxygen. He has no significant cough or congestion and contin ues to be hemodynamically stable. PHYSICAL EXAMINATION: VITAL SIGNS: His temperature is 100, his pulse is 100, respirations are 24, and BP is 139/77, O2 sat uration is 100%. HEENT: Head is atraumatic, normocephalic. Eyes reactive to light. Ears, nose and throat seemed to be within normal limits. NECK: Supple. No JVD, no thyroid enlargement, no lymph nodes. HEART: Has a regular rate and rhythm. Normal S1, S2. LUNGS: Reveal decreased breath sounds at the bases with mild rhonchi. ABDOMEN: Soft. Decreased bowel sounds. GENITALIA AND RECTAL: Deferred. MUSCULOSKELETAL: No joint deformities. EXTREMITIES: Reveal positive lower extremity edema. NEUROLOGIC: The patient is awake and seems to be moving all extremities. He has a chest x-ray that continues to reveal fluffy infiltrates or congestion with a possible left l ower lobe consolidation or pleural effusion. LABORATORIES: Reveal a white count of 33.2, hemoglobin of 10.7, hematocrit 31.3 with platelets of 93 ,000. His arterial blood gas reveals a pH of 7.42, pCO2 of 31, pO2 of 110 and his sodium is 135, pot assium 4.1, chloride 100, CO2 of 23 with a BUN of 56, creatinine of 4.4 and a glucose of 166. IMPRESSION: The patient has respiratory failure with hypoxia requiring BiPAP and oxygen support. He is post myocardial infarction and status post gastrointestinal bleed. The patient has end-stage luciano al disease on hemodialysis with hypertension, diabetes, coronary artery disease and a history of cere brovascular accident. The patient has pulmonary hypertension as well as atrial fibrillation and the family has made him a Do Not Resuscitate/Do Not Intubate. PLAN: We will continue with Brovana, bronchodilators. The patient is getting Lopressor and Protonix . He is on meropenem and continues to use the BiPAP and O2 support. We will continue with aggressiv e pulmonary toilet. Jamie Quezada MD cc: [id number] TT: 09/10/2016 09:55:23 Confirmation # [id number] Dictation # [id number] en
[2016-09-10] MEDS: Linezolid 600 mg in D5W 300 ml 600 MG/300 ML BAG IVPB SCH ×2 (10:46→22:02)
[2016-09-10] MEDS: Vitamins A & D Oint UD Foilpak TOP SCH ×2 (10:48→22:02)
--- NOTE | 2016-09-10 13:23 | PN ---
DATE: 09/10/2016 SUBJECTIVE: The patient is seen lying in bed in the ICU. He remains on high flow oxygen via facemas k. He is awake, responsive, although lethargic. He denies any pain. He is not on IV heparin anymore. He is off dobutamine. He is off IV Cardizem drip. He is receiving PEG feeds at 40 mL per hour. PHYSICAL EXAMINATION: GENERAL: Elderly male, lying in bed, in the ICU. VITAL SIGNS: Blood pressure 127/61, heart rate 95, respiratory rate 20-24, temperature 98.4. HEENT: Normocephalic, atraumatic, positive pallor. NECK: Supple, no JVD. LUNGS: Bilateral rhonchi, bilateral equal expansion, no rales appreciated anteriorly. CARDIAC: S1, S2, irregularly irregular, no murmur, no rub. ABDOMEN: Soft, nondistended, nontender, bowel sounds present. EXTREMITIES: No lower extremity edema, 2+ pitting edema of the upper extremities. INTAKE AND OUTPUT: 830/2070, 2000 mL removed on ultrafiltration yesterday. LABORATORY DATA: WBC 33, hemoglobin 10.7, hematocrit 31, platelets 93. Sodium 135, potassium 4.1, c hloride 100, CO2 23, BUN 56, creatinine 4.4, glucose 146, calcium 7.7, phosphorus 6.5, magnesium 2.2, albumin 2.0, corrected calcium is 9.1. Cultures: Blood cultures no growth since 09/06. C. diff toxin from 09/06 negative. CURRENT MEDICATIONS: Mucomyst 3 mL b.i.d., hydralazine 10 mg via PEG q.i.d., aspirin chewable, Brova na, Cardizem 5 mg p.r.n., insulin, Imdur 10 mg q. 8 hours via PEG, Lopressor 25 b.i.d., meropenem 25 0 q. 12, Protonix 40, Tylenol, Zyvox 600 q. 12. ASSESSMENT: Multiorgan failure, respiratory failure, on noninvasive ventilation, cardiomyopathy, his tory of coronary artery disease, pulmonary edema, aspiration pneumonia, acute kidney injury superimpo sed on chronic kidney disease, worsening sepsis, worsening WBCs, bandemia. 1. Sepsis, leukocytosis, bandemia, source likely to be pulmonary. 2. Congestive heart failure, cardiomyopathy, volume overload. 3. Acute kidney injury, superimposed on chronic kidney disease stage IV, remains dialysis dependent. 4. Chronic anemia, multifactorial, anemia of chronic kidney disease, gastrointestinal bleed. 5. Hyperphosphatemia. 6. Severe malnutrition, severe hypoalbuminemia. 7. Worsening clinical state, grim prognosis. PLAN: 1. The patient had extra dry ultrafiltration done yesterday, 2 kilos were removed. 2. Continue antibiotics as per infectious disease recommendations, cover for healthcare-associated p neumonia/infection. 3. Start PhosLo 667 mg via PEG q. 8 hours. 4. Next dialysis will be tomorrow. 5. Continue PEG feeds. 6. Prognosis is grim. 7. Strongly recommend comfort care. 8. Case discussed with ICU staff at length. 9. Case discussed with charge nurse. 10. More than 35 minutes spent in the care of this critically ill patient. Aundrea Alcazar MD cc: [id number] TT: 09/10/2016 13:22:20 Confirmation # [id number] Dictation # [id number] en
--- NOTE | 2016-09-10 14:12 | PN ---
DATE: 09/10/2016 The patient is lethargic. He is on BiPAP. He is in rapid atrial fibrillation, required IV Cardizem infusion at one point. PHYSICAL EXAMINATION: VITAL SIGNS: Blood pressure 146/67, heart rate 154, temperature 98.4, respiration 27. HEENT: Pale conjunctivae. CHEST: Bilateral rhonchi. HEART: S1, S2 regular. EXTREMITIES: 1+ pedal and arm edema. LABORATORIES: CBC: WBC 33.2, hemoglobin and hematocrit 10.7 and 31.3, platelet count 93,000. Today 's BUN and creatinine are 56 and 4.4, glucose is 146. The rest of SMA-7 is within normal limits. Ca lcium below normal at 7.7. Today's INR is 1.31 and PTT 35.8. ASSESSMENT: 1. Status post respiratory failure. 2. Rapid atrial fibrillation. 3. End-stage renal disease, on hemodialysis. 4. Coronary artery disease with a history of coronary stenting. 5. Rapid atrial fibrillation. 6. History of cerebrovascular accident. RECOMMENDATIONS: Continue current IV Zyvox at 600 mg twice a day and IV meropenem at 250 mg twice a day. Continue subcutaneous heparin at 5000 units q. 8 hours. Increase Lopressor to 50 mg twice a da y. Continue aspirin 81 mg once a day. Carl Jay MD cc: [id number] TT: 09/10/2016 14:12:07 Confirmation # [id number] Dictation # [id number] en
--- NOTE | 2016-09-10 14:33 | RAD ---
HISTORY: deSat COMPARISON: 09/09/2016 FINDINGS: LUNGS: Mild pulmonary vascular congestive changes with bilateral lower lobe alveolar-type infiltrates and bilateral effusions. No change large-bore right and left IJ central venous lines. PLEURA: No significant pleural effusion identified, no pneumothorax apparent. CARDIOVASCULAR: Normal. OSSEOUS STRUCTURES: No significant abnormalities. VISUALIZED UPPER ABDOMEN: Normal. OTHER FINDINGS: None. IMPRESSION: Mild pulmonary vascular congestive changes with bilateral lower lobe alveolar-type infiltrates and bilateral effusions. No change large-bore right and left IJ central venous lines.
--- NOTE | 2016-09-10 16:50 | RAD ---
HISTORY: shortness of breath COMPARISON: No prior. FINDINGS: LUNGS: Persistent mild vascular congestive changes with bilateral alveolar-type infiltrates and bilateral effusions. Interval removal left-sided IJ central venous line. No change right IJ central line and right-sided PICC line. PLEURA: No pneumothorax apparent. CARDIOVASCULAR: Cardiomegaly OSSEOUS STRUCTURES: No significant abnormalities. VISUALIZED UPPER ABDOMEN: Normal. OTHER FINDINGS: None. IMPRESSION: Persistent mild vascular congestive changes with bilateral alveolar-type infiltrates and bilateral effusions. Interval removal left-sided IJ central venous line. No change right IJ central line and right-sided PICC line.
[2016-09-10 18:25] LABS: PH,URINE 5.5 (4.7-8.0); URINE BILIRUBIN NEGATIVE (NEGATIVE); URINE BLOOD LARGE (NEGATIVE); URINE GLUCOSE (UA) 100 mg/dL (NEGATIVE); URINE KETONE TRACE mg/dL (NEGATIVE); URINE LEUKOCYTE ESTERASE NEGATIVE Leu/uL (NEGATIVE); URINE PROTEIN >=300 mg/dL (<30 mg/dL); URINE UROBILINOGEN 0.2 E.U./dL (<1 E.U./dL)
[2016-09-10 18:27] LABS: URINE APPEARANCE SL CLOUDY (CLEAR); URINE COLOR YELLOW (YELLOW)
[2016-09-10 18:29] LABS: URINE BACTERIA MANY (NEG); URINE WBC 15 - 20 /hpf (0-6)
--- NOTE | 2016-09-10 21:36 | PN ---
DATE: 09/10/2016 REFERRING PHYSICIAN: Sana Myers MD SUBJECTIVE: He is lying in the bed on noninvasive ventilation, and lethargic. No hemoptysis, no hem atemesis, no hematuria. No diarrhea. He does have leg swelling. OBJECTIVE: GENERAL: Lethargic, on noninvasive ventilation. VITAL SIGNS: Temperature is 98, heart rate is 113, respiratory rate is 30, blood pressure 95/54, pul se ox 100% on noninvasive ventilation at 100% oxygen. NECK: Supple, no JVD. LUNGS: Poor air flow with scattered crackles and rhonchi. HEART: S1, S2. ABDOMEN: Soft, nontender. No organomegaly. EXTREMITIES: There is no edema. NEUROLOGIC: Lethargic, but arousable. MEDICATIONS: He is on Mucomyst 20%/3 mL inhaled twice a day, hydralazine 10 mg q.i.d., artificial te ars q. 6 hours, aspirin 81 mg daily, Brovana inhaled twice a day, 5 mg q. 2 hours p.r.n., hepar in 5000 units subQ q. 8 hours, insulin coverage, Isordil 10 mg q. 8 hours, metoprolol 50 mg twice a d ay, meropenem 250 mg q. 12 hours, nasal saline 2 sprays each nostril q. 4 hours, Protonix 40 mg q. 12 hours, , to mouth q. 4 hours, Tylenol on a p.r.n. basis, vitamin A and D to affected area q. 12 hours, Zyvox 600 mg q. 12 hours. LABORATORY DATA: Shows hemoglobin 10.7, hematocrit 31.3, WBC 33,000, platelets are 93. INR 1.3, PTT is 36. Blood gases shows pH 7.42, pCO2 of 31, ; this is on is 100% FIO2 noninvasive ventilatio n. Sodium 135, potassium 4.1, chloride 100, bicarbonate 23, BUN 56, creatinine 4.4, glucose 146, az cium 7.7, phosphorus 6.5, magnesium 2.2. AST 61, ALT 38, alkaline phosphatase is 110. Albumin is 2. 0. Chest x-ray done today shows vascular congestion, bilateral pulmonary infiltrate. There is a lef t-sided IJ central venous catheter. There is a right PICC line. IMPRESSION AND PLAN: Multiorgan failure with respiratory failure, noninvasive ventilation, pneumonia and pulmonary edema, cardiomyopathy, status post coronary artery disease, renal failure, dialysis de pendence, peptic ulcer disease status post gastrointestinal bleed, atrial fibrillation, anemia. Case discussed with the nursing staff. A very poor prognosis. The patient is DNR and DNI. Family w ishes to continue aggressive care. Continue antibiotics as per infectious diseases. Is being follow ed by nephrology, on dialysis. Seen by infectious diseases. Is also followed by gastroenterology bonifacio urias. There is . Follow up labs in the morning. I will follow. Shawn Ruff MD cc: [phone] TT: 09/10/2016 20:12:38 Confirmation # [id number] Dictation # [id number] vn
--- NOTE | 2016-09-10 21:45 | CP.PCM.PN ---
Subjective - Date & Time of Evaluation Date of Evaluation: 09/10/16 Time of Evaluation: 14:00 - Subjective Subjective: Fatigued Objective - Vital Signs/Intake and Output Vital Signs (last 24 hours): Temp Pulse Resp BP Pulse Ox 99.6 F 108 H 33 H 95/54 L 100 09/10/16 20:00 09/10/16 20:00 09/10/16 18:00 09/10/16 18:00 09/10/16 18:00 Intake and Output: 09/10/16 09/11/16 18:59 06:59 Intake Total 880 Output Total 100 Balance 780 - Medications Medications: Current Medications Acetaminophen (Tylenol 650 Mg Supp) 650 mg RC Q4H PRN PRN Reason: Fever >100.4 F Last Admin: 09/10/16 00:19 Dose: 650 mg Acetylcysteine (Acetylcysteine 20%) 3 ml IH BID [facility] Last Admin: 09/10/16 07:33 Dose: 2 ml Arformoterol Tartrate (Brovana) 15 mcg IH [id number] [facility] Last Admin: 09/10/16 07:34 Dose: 15 mcg Artificial Tears (Artificial Tears) 0 ml OU Q6H [facility] Last Admin: 09/10/16 12:30 Dose: 2 drop Aspirin (Aspirin Chewable) 81 mg PO DAILY [facility] Last Admin: 09/10/16 10:46 Dose: 81 mg Calcium Acetate (Phoslo) 667 mg GT WM [facility] Last Admin: 09/10/16 16:46 Dose: 667 mg Diltiazem HCl (Cardizem) 5 mg IVP Q2 PRN PRN Reason: Heart rate Last Admin: 09/10/16 11:50 Dose: 5 mg Heparin Sodium (Porcine) (Heparin) 5,000 units SC Q8 [facility] PRN Reason: Protocol Last Admin: 09/10/16 14:35 Dose: 5,000 units Hydralazine HCl (Apresoline) 10 mg PEG QID [facility] Last Admin: 09/10/16 17:15 Dose: 10 mg Linezolid (Zyvox 600mg/300ml D5w) 600 mg in 300 mls @ 200 mls/hr IVPB Q12 [facility] PRN Reason: Protocol Stop: 09/12/16 10:16 Last Admin: 09/10/16 10:46 Dose: 200 mls/hr Meropenem 250 mg/ Sodium (Chloride) 100 mls @ 100 mls/hr IVPB Q12 [facility] PRN Reason: Protocol Stop: 09/15/16 22:01 Last Admin: 09/10/16 10:42 Dose: 100 mls/hr Insulin Human Lispro (Humalog Low) 0 units SC ACHS [facility] PRN Reason: Protocol Last Admin: 09/10/16 16:47 Dose: 2 units Isosorbide Dinitrate (Isordil) 10 mg PEG Q8H [facility] Last Admin: 09/10/16 17:15 Dose: Not Given Metoprolol Tartrate (Lopressor) 50 mg PO BID [facility] Last Admin: 09/10/16 17:16 Dose: Not Given Pantoprazole Sodium (Protonix Inj) 40 mg IVP Q12 [facility] Last Admin: 09/10/16 10:46 Dose: 40 mg Saliva Substitute (Saliva Substitute) 0 ml PO Q4 [facility] Last Admin: 09/10/16 17:16 Dose: 1 ml Sodium Chloride ([place] Nasal [place]) 1 ml NS Q4 [facility] Last Admin: 09/10/16 17:16 Dose: 2 spray Tetrahydrozoline HCl/Zinc Sulfate (Visine 0.05% Opht Soln) 0 ml OU BID PRN PRN Reason: Dry eyes Vitamin A (Vitamin A & D Oint Ud Foilpak) 1 ea TOP Q12 [facility] Last Admin: 09/10/16 10:48 Dose: 1 ea - Labs Labs: 09/10/16 06:20 09/10/16 06:20 PT 14.1 Seconds (9.9-11.8) H 09/10/16 06:20 INR 1.31 (0.93-1.08) H 09/10/16 06:20 APTT 35.8 Seconds (23.7-30.8) H 09/10/16 06:20 - Head Exam Head Exam: ATRAUMATIC - Eye Exam Eye Exam: Normal appearance - ENT Exam ENT Exam: Mucous Membranes Dry - Respiratory Exam Respiratory Exam: Decreased Breath Sounds - Cardiovascular Exam Cardiovascular Exam: +S1, +S2 - GI/Abdominal Exam GI & Abdominal Exam: Normal Bowel Sounds - Extremities Exam Extremities Exam: Pedal Edema Assessment and Plan (1) Leukocytosis Assessment & Plan: on antibiotics Status: Acute (2) Anemia Assessment & Plan: chronic disease, CKD, GI blood loss H/H stable Status: Acute (3) ITP (idiopathic thrombocytopenic purpura) Assessment & Plan: plt down trending restart Promacta if plt < 50,000 Status: Acute
[2016-09-11] MEDS: Aritificial Tears (15ml) OU SCH ×3 (01:44→12:04)
[2016-09-11 06:22] LABS: ARTERIAL BLOOD GAS HCO3 17.3 mmol/L (21-28); ARTERIAL BLOOD GAS O2 CAPACITY 12.3 mL/dl (16-24); ARTERIAL BLOOD GAS O2 CONTENT 11.7 ML/dl (15-23); ARTERIAL BLOOD GAS PH 7.43 (7.35-7.45); CARBOXYHEMOGLOBIN 1.8 % (0.5-1.5); HHB 4.5 % (0-5); METHEMOGLOBIN 0.8 % (0.0-3.0)
[2016-09-11] MEDS: Saliva Substitute 44.3 ML PO SCH ×6 (06:48→20:30)
[2016-09-11] MEDS: Insulin Lispro (humaLOG) LOW Coverage SC SCH ×3 (07:45→17:01)
[2016-09-11] MEDS: Arformoterol 15 mcg/2 ml Inh Sol IH SCH (07:46)
[2016-09-11] MEDS ORDERED: Acetylcysteine 20% Inhal Soln (4ml) IH SCH (07:50)
--- NOTE | 2016-09-11 08:12 | PN ---
DATE: 09/10/2016 The patient is an 81-year-old male. The patient was seen and examined on the bedside. Son and [id number] were on the bedside also. Length of time discussion with them about patient's status. All questions answered. According to son, he has one more brother who lives in [place]. He is also coming to see the father. One sister is back home. She knows father's condition also. Father's condition is not very well. Explained to the patient about poor prognosis. Still is on ventimask, has G-tube, is not able to give a review of systems, but looks like he does not have fever. No nausea, vomiting, diarrhea. No madhavi hematuria. No hematochezia. PHYSICAL EXAMINATION: VITAL SIGNS: Temperature is 98, heart rate 113, respiratory rate 18 , blood pressure 95/54, pulse oximetry 100% on nasal cannula. HEENT: Head normocephalic, atraumatic. Eyes open. Nose patent. Mucous membranes moist. NECK: Supple. No JVD. LUNGS: Poor air entry with scattered crackles and rhonchi. HEART: S1, S2 positive. ABDOMEN: Soft, nontender. No organomegaly. EXTREMITIES: No edema, no cyanosis. NEUROLOGIC: The patient is lethargic, but arousable with command. MEDICATIONS: hydralazine, aspirin, Brovana, heparin, insulin, metoprolol, meropenem, nasal saline, Protonix, vitamin D, Zyvox. LABORATORIES: Hemoglobin 10.7, hematocrit 31.3, white blood cells 33,000, platelets 93. Sodium 135, potassium 4.1, BUN 56, creatinine 4.4, glucose 146, AST 61, ALT 38. Chest x-ray done today shows vascular congestion, bilateral pulmonary infiltrates. There is a left-sided IJ central venous catheter. There is a right PICC line. ASSESSMENT AND PLAN: The patient is an 81-year-old male with multiple organ dysfunction, respiratory failure, still on noninvasive ventilation, pneumonia, pulmonary edema, pulmonary hypertension, cardiomyopathy, status post coronary artery disease, renal failure, dialysis dependent 3 times a week, peptic ulcer disease, post gastrointestinal bleeding, atrial fibrillation, anemia. Family was informed the patient has a poor prognosis. The patient is Do Not Resuscitate and Do Not Intubate. Continue antibiotics, hydralazine, Brovana, heparin, insulin coverage, antibiotic meropenem. Gastrointestinal and deep venous thrombosis prophylaxis. Repeat labs. We will follow up. Sana Myers MD cc: [id number] TT: 09/11/2016 08:10:51 Confirmation # [id number] Dictation # [id number] en MTDD
--- NOTE | 2016-09-11 08:26 | PN ---
DATE: 09/10/2016 The patient is in bed in no acute distress, nontoxic. Was seen earlier this morning in CCU 129, bed 1. PHYSICAL EXAMINATION: VITAL SIGNS: The patient's temperature is 98, blood pressure is 110/60, respiratory rate is noted. HEENT: Unremarkable. NECK: Supple. LUNGS: Have decreased breath sounds. HEART: Normal S1, S2. ABDOMEN: Soft, nontender. LABORATORY DATA: Reveals a white count is 33,000, hemoglobin of 10, platelets of 93. Chemistries re veal the BUN of 56, creatinine of 4.4. Urinalysis is noted. Random vancomycin level of 11. Serolog y is noted. Review of the orders reveals the patient to be on meropenem and linezolid. Stool for C. diff antigen and toxin are negative. Dr. Jay's progress note is reviewed. Dr. Alcazar's note is reviewed. Dr. Quezada's note is reviewed. Dr. Myers's note is reviewed. The patient also had a chest x-ray today , the results are not available. Concerned about this increase in white count of 33,000. Yesterday' s white count was 81,000 with only 4% bandemia and 94% neutrophils. Yesterday's chest x-ray report: Vascular congestive changes. The patient also had a procalcitonin that was 3.38. Microbiology reve als cultures are negative from the . Review of the orders reveals the patient to be on Zyvox and meropenem. ASSESSMENT AND PLAN: This is an 81-year-old male with severe sepsis, healthcare-associated pneumonia , fkdyy-st-adlmsdi renal failure, lactic acidosis, non-ST elevation myocardial infarction in the face of acute systolic congestive heart failure on Zyvox and meropenem day #9, and now with increase in l eukocytosis with 9 days of Zyvox and meropenem with the LFTs essentially unremarkable, the etiology o f the increased white count up to 33,000 is unclear. We will repeat wilder cultures, blood, urine and s putum, procalcitonin, urinalysis and urine culture and will review the chest x-ray. We will order a procalcitonin. We will make further recommendations upon the availability of any new results. Kamran Jay MD cc: [id number] TT: 09/10/2016 16:30:20 Confirmation # [id number] Dictation # [id number] dn
--- NOTE | 2016-09-11 08:48 | PN ---
DATE: 09/10/2016 SUBJECTIVE: This patient was seen and evaluated earlier. The patient is on BiPAP. PHYSICAL EXAMINATION: VITAL SIGNS: Temperature is 99.6, pulse is 108, blood pressure is 95/54. HEENT: Atraumatic. Anicteric. NECK: Supple. HEART: S1, S2 heard. LUNGS: Bilateral air entry present, slightly reduced at the base. ABDOMEN: Soft. The PEG site appears unremarkable. EXTREMITIES: Pneumatic compressions present. LABORATORY DATA: Hemoglobin is 10.7, hematocrit 31.8, WBC 33.2, platelets 93, BUN 56, creatinine 4.4 . IMPRESSION AND PLAN: This is an 81-year-old patient with acute multiple medical problems. The patie nt admitted with bleeding, status post transfusion. Endoscopy showed multiple ulcers. The patient h ad non-ST segment myocardial infarction, status post cardiac catheterization which showed global isch emia. The patient has renal failure, on dialysis. History of CVA in the past. The patient is on Bi PAP. The patient has been started on the G-tube feeding. He has had 40 mL . Followup for residue. Continue with antibiotics as per ID, sepsis, probably pneumonia. The patient has been on Zyvox and m eropenem. C. diff in the past negative. Continue to closely follow up his care. Eleonora Dillard MD cc: [id number] TT: 09/10/2016 22:42:15 Confirmation # [id number] Dictation # [id number] md
[2016-09-11 09:16] LABS: BASO # 0.01 [, K/mm3] (0.0-2.0); GRAN # 27.37 (1.4-6.5); GRAN % 95.9 % (50.0-68.0); HEMATOCRIT 30.1 % (42.0-52.0); LYMPH # 0.4 (1.2-3.4); LYMPH % 1.4 % (22.0-35.0); MEAN CORPUSCULAR HEMOGLOBIN 30.1 pg (25.0-35.0); MEAN CORPUSCULAR HGB CONC 34.6 g/dl (31.0-37.0); MONO # 0.8 (0.1-0.6); MONO % 2.7 % (1.0-6.0); PLATELET COUNT 41 [, 10^3/uL] (120.0-450.0); RED CELL DISTRIBUTION WIDTH 16.5 % (11.5-14.5)
[2016-09-11 09:22] LABS: ADD MANUAL DIFF? NO; WHITE BLOOD COUNT 28.6 [, 10^3/ul] (4.5-11.0)
[2016-09-11 09:23] LABS: INR 1.22 (0.93-1.08); PARTIAL THROMBOPLASTIN TIME 41.1 Seconds (23.7-30.8)
[2016-09-11] MEDS: Linezolid 600 mg in D5W 300 ml 600 MG/300 ML BAG IVPB SCH (09:55)
--- NOTE | 2016-09-11 10:08 | RAD ---
HISTORY: shortness of breath COMPARISON: 09/10/2016 FINDINGS: LUNGS: Diffuse alveolar infiltrate right greater than left increased. PLEURA: No significant pleural effusion identified, no pneumothorax apparent. CARDIOVASCULAR: Normal. OSSEOUS STRUCTURES: No significant abnormalities. VISUALIZED UPPER ABDOMEN: Normal. OTHER FINDINGS: None. IMPRESSION: Increasing alveolar infiltrate right greater than left
[2016-09-11] MEDS: Vitamins A & D Oint UD Foilpak TOP SCH (10:14)
[2016-09-11 10:29] LABS: ALB/GLOB RATIO 0.7 (1.1-1.8); BILIRUBIN,TOTAL 0.7 mg/dL (0.2-1.3); CALCIUM 7.3 mg/dL (8.4-10.5); MAGNESIUM 2.2 mg/dL (1.7-2.2); POTASSIUM 4.5 mmol/L (3.6-5.0); TOTAL PROTEIN 4.8 g/dL (5.8-8.3)
[2016-09-11 10:36] LABS: PHOSPHOROUS 6.7 mg/dL (2.5-4.5)
[2016-09-11] MEDS ORDERED: Albumin Human 25% (12.5 gm/50 ml) IV STA ×2 (11:00→11:01)
--- NOTE | 2016-09-11 11:16 | CP.PCM.PN ---
Subjective - Date & Time of Evaluation Date of Evaluation: 09/11/16 Time of Evaluation: 10:00 - Subjective Subjective: Extremely lethargic. Receiving dialysis. BIPAP in use Objective - Vital Signs/Intake and Output Vital Signs (last 24 hours): Temp Pulse Resp BP Pulse Ox 100.1 F H 121 H 30 H 110/67 94 L 09/11/16 08:00 09/11/16 09:54 09/11/16 07:00 09/11/16 09:54 09/11/16 07:00 Intake and Output: 09/11/16 09/11/16 06:59 18:59 Intake Total 880 Output Total 100 Balance 780 - Medications Medications: Current Medications Acetaminophen (Tylenol 650 Mg Supp) 650 mg RC Q4H PRN PRN Reason: Fever >100.4 F Last Admin: 09/10/16 00:19 Dose: 650 mg Acetylcysteine (Acetylcysteine 20%) 3 ml [facility]P [facility] Last Admin: 09/11/16 07:58 Dose: 3 ml Arformoterol Tartrate (Brovana) 15 mcg [facility] [id number] [facility] Last Admin: 09/11/16 07:46 Dose: 15 mcg Artificial Tears (Artificial Tears) 0 ml OU Q6H [facility] Last Admin: 09/11/16 06:46 Dose: 1 drop Aspirin (Aspirin Chewable) 81 mg PO DAILY [facility] Last Admin: 09/10/16 10:46 Dose: 81 mg Calcium Acetate (Phoslo) 667 mg GT WM [facility] Last Admin: 09/11/16 08:20 Dose: 667 mg Diltiazem HCl (Cardizem) 5 mg IVP Q2 PRN PRN Reason: Heart rate Last Admin: 09/10/16 11:50 Dose: 5 mg Heparin Sodium (Porcine) (Heparin) 5,000 units SC Q8 YUVAL PRN Reason: Protocol Last Admin: 09/11/16 06:46 Dose: 5,000 units Hydralazine HCl (Apresoline) 10 mg PEG QID [facility] Last Admin: 09/10/16 22:01 Dose: 10 mg Linezolid (Zyvox 600mg/300ml D5w) 600 mg in 300 mls @ 200 mls/hr IVPB Q12 YUVAL PRN Reason: Protocol Stop: 09/12/16 10:16 Last Admin: 09/11/16 09:55 Dose: 200 mls/hr Meropenem 250 mg/ Sodium (Chloride) 100 mls @ 100 mls/hr IVPB Q12 YUVAL PRN Reason: Protocol Stop: 09/15/16 22:01 Last Admin: 09/11/16 09:55 Dose: 100 mls/hr Insulin Human Lispro (Humalog Low) 0 units SC ACHS YUVAL PRN Reason: Protocol Last Admin: 09/11/16 07:45 Dose: 3 units Isosorbide Dinitrate (Isordil) 10 mg PEG Q8H [facility] Last Admin: 09/11/16 09:54 Dose: 10 mg Metoprolol Tartrate (Lopressor) 50 mg PO BID [facility] Last Admin: 09/11/16 09:54 Dose: 50 mg Pantoprazole Sodium (Protonix Inj) 40 mg IVP Q12 [facility] Last Admin: 09/11/16 09:54 Dose: 40 mg Saliva Substitute (Saliva Substitute) 0 ml PO Q4 [facility] Last Admin: 09/11/16 08:35 Dose: 1 ml Sodium Chloride (Sublette Nasal Holliday) 1 ml NS Q4 [facility] Last Admin: 09/11/16 08:35 Dose: 1 spray Tetrahydrozoline HCl/Zinc Sulfate (Visine 0.05% Opht Soln) 0 ml OU BID PRN PRN Reason: Dry eyes Vitamin A (Vitamin A & D Oint Ud Foilpak) 1 ea TOP Q12 [facility] Last Admin: 09/11/16 10:14 Dose: 1 ea - Labs Labs: 09/11/16 08:40 09/11/16 08:40 PT 13.2 Seconds (9.9-11.8) H 09/11/16 08:40 INR 1.22 (0.93-1.08) H 09/11/16 08:40 APTT 41.1 Seconds (23.7-30.8) H 09/11/16 08:40 - Constitutional Appears: Chronically Ill - Eye Exam Eye Exam: Normal appearance - Respiratory Exam Respiratory Exam: Accessory Muscle Use, Rales, Rhonchi Additional comments: tachypnea - Cardiovascular Exam Cardiovascular Exam: Tachycardia, Irregular Rhythm - GI/Abdominal Exam GI & Abdominal Exam: Distended, Soft, Diminished Bowel Sounds - Neurological Exam Neurological Exam: Altered - Skin Skin Exam: Dry, Pallor Additional comments: ansarca Assessment and Plan - Assessment and Plan (Free Text) Assessment: 81 year old [place] male admitted with [place] Non STEMI, palmary failure, CHF, ALLYS[place] , sepsis. Multiple prior discussions have been had with patient's son Il regarding patient 's status and extremely guarded prognoses. Son wanted to proceed with aggressive interventions such as dialysis, PEG placement to prolong life. Son had agreed to LTAC placement. Today patient is much weaker. Over all prognosis looking worse. Team meeting set with son for later this afternoon to discuss reality of situation and to try and establish more realistic goals of care. Will offer family opportunity for in- patient GIP hospice care
--- NOTE | 2016-09-11 11:35 | PN ---
DATE: 09/11/2016 The patient underwent a complicated course these past several days. PHYSICAL EXAMINATION: VITAL SIGNS: Blood pressure is currently 110/67. Heart rate is atrial fibrillation, approximately 1 40. Temperature is 100. NECK: Negative JVD. LUNGS: Bilateral rhonchi. HEART: Revealed S1, S2. EXTREMITIES: Without change. LABORATORY DATA: The white count is up to 28,000. Hemoglobin is 10.4. Chemistries: BUN and creat inine are 76 and 5.0 with a glucose of 273. IMPRESSION: 1. Respiratory compromise. 2. Atrial fibrillation with rapid heart rate. 3. End-stage renal disease. 4. Diabetes mellitus. 5. Diffuse coronary artery disease. 6. Diffuse peripheral vascular disease. 7. Chronic obstructive pulmonary disease. PLAN: Given these findings, we will start IV Cardizem and start p.o. Cardizem via the PEG tube. I have discussed with renal about more negative fluid balance with dialysis. The patient's prognosis is poor. Bashir Samson MD cc: [id number] TT: 09/11/2016 11:25:42 Confirmation # [id number] Dictation # [id number] alberto
--- NOTE | 2016-09-11 12:11 | PN ---
DATE: 09/11/2016 SUBJECTIVE: The patient is seen in the ICU. He is receiving dialysis. He is lethargic. Tachypneic . He is breathing at about 30 breaths per minute. He is also tachycardic. Heart rate is ranging be tween 120-140. Blood pressure is low, 94/50. Overnight, he also had a fever. T-max of 101. Clinically, he is deteriorating. Doing poorly. Remains on meropenem and Zyvox. Remains in atrial f ibrillation with increased ventricular rate. PHYSICAL EXAMINATION: GENERAL: Elderly male lying in bed, tachypneic. VITAL SIGNS: Blood pressure 94/57, heart rate 140, respiratory rate 30-32, temperature 100.1. HEENT: Normocephalic, atraumatic, positive pallor. NECK: Supple. No JVD. LUNGS: Bilateral decreased air entry at bases, shallow respiration, bilateral rhonchi. CARDIAC: S1, S2. Irregularly irregular. No murmur, no rub. ABDOMEN: Distended, soft, nontender, bowel sounds present, PEG positive. EXTREMITIES: 1+ pitting edema of the lower extremities, 2+ pitting edema of the upper extremities. INTAKE AND OUTPUT: 830/2070. CURRENT MEDICATIONS: Mucomyst, hydralazine 10 mg q.i.d. - last given last night at 10:00 p.m. Brova na, Cardizem, heparin, Imdur, Lopressor 50 b.i.d., meropenem 250 q. 12, PhosLo, Protonix, Zyvox. ASSESSMENT AND PLAN: An 81-year-old male with multiorgan dysfunction, gastrointestinal bleed, non-S T elevation myocardial infarction, cardiomyopathy, decreased ejection fraction, acute kidney injury, respiratory failure, sepsis, leukocytosis, bandemia, is clinically deteriorating. The patient had a PEG placed 2 days ago. He had a tunneled catheter placed for chronic dialysis 2 days ago, but over t he last 48 hours, the patient keeps on deteriorating. He has a new fever spike. T-max is 101. His WBC count has risen to 28,000. He has got 4% bands. Hemoglobin remains stable. He is also now beco essie thrombocytopenic. Suspect disseminated intravascular coagulation at this time. Also, his renal function is also deteriorating. His urine output has reduced. There is no residual renal function at this point. In light of all the above findings and clinical deterioration, strongly recommend ___ _ assessment of his situation and strongly recommend comfort care measures only. 1. Sepsis, leukocytosis, new fever, bandemia. 2. Thrombocytopenia, suspect disseminated intravascular coagulation. 3. Oligoanuric acute kidney injury, dialysis-dependent. 4. Severe cardiomyopathy, decreased ejection fraction. 5. Hyperphosphatemia. 6. Severe malnutrition. 7. Poor prognosis. PLAN: 1. Strongly recommend discussion with family regarding withdrawal of care/comfort care. 2. Dialysis today to remove about 2 kg as tolerated. 3. Continue antibiotics, as per infectious disease recommendations. 4. Continue PEG tube feedings. 5. Case discussed at length with ICU team, ICU residents, sheet metal engineer. Case discussed with dialysis staff. More than 35 minutes spent in the care of this critically-ill patient. Aundrea Alcazar MD cc: [id number] TT: 09/11/2016 12:10:47 Confirmation # [id number] Dictation # [id number] alberto
--- NOTE | 2016-09-11 13:10 | PN ---
DATE: 09/11/2016 Seen and examined at the bedside earlier this morning. The patient is reported to be tolerating his PEG feedings at 40 mL an hour. No reports of any residual. The patient is reportedly having pasty b rown stools. No reports of any overt GI bleed. Currently receiving dialysis. VITAL SIGNS: Temperature is 100.1, blood pressure is 116/67, pulse is 134, pulse ox at 94, respirati ons 30. LABORATORY DATA: WBC is 28.6, H and H is 10.4 and 30.1, platelets are 41, manual platelet is 50. PT is 13.2, INR is 1.22, PTT is 41.1. Sodium is 131, K 4.5, BUN 76, creatinine is 5.0. Magnesium 2.2, total bilirubin 0.7, AST 36, ALT 38, alkaline phosphatase is 141. Chest x-ray done today and shows increasing aveolar infiltrate, right greater than the left. PHYSICAL EXAMINATION: HEENT: Sclera is anicteric. NECK: Supple. CARDIAC: S1, S2. LUNGS: Sounds with decreased breath sounds at the bases, positive rhonchi. ABDOMEN: Soft with bowel sounds, is distended. PEG is in place. No erythema or drainage noted at i nsertion site. ASSESSMENT: An 81-year-old male with multiorgan dysfunction, status post gastrointestinal bleed, has esophageal ulcers, non-ST myocardial infarction, cardiomyopathy, acute kidney injury. The patient i s also on dialysis. Respiratory failure. Now status post PEG last Sunday. He also has thrombocytop enia, leukocytosis, severe cardiomyopathy, malnutrition. PLAN: Continue PEG feedings as tolerated. Check residuals. Monitor for overt GI bleed. He is on a spirin, on heparin subQ 8 hours, on IV antibiotics of Zyvox, meropenem. He is also on Protonix q.12. Consider decreasing dose of Protonix. Family spoke to nursing staff. There is going to be a famil y meeting regarding patient's long-term plans, LTAC. The patient has poor prognosis, not sure of LTA C anymore. Family meeting to be done this afternoon. The patient was seen and case discussed with Dr. Dillard. Breann GRIFFITH cc: [id number] TT: 09/11/2016 13:09:24 Confirmation # [id number] Dictation # [id number] sn
--- NOTE | 2016-09-11 15:20 | CP.CCUPN ---
Addendum entered and electronically signed by Izabela Luis DO 09/11/16 16:49 : Family meeting with Mary Singleton (social media campaign manager), , CHARLOTTE Moya, (POA,son), Elina (Serbian nurse). Family understood the disease course of the patient, the prognosis, and the benefit vs the risks. Family agrees that with bipap at 5pm. Comfort measure in place. Stop dialysis [facility], meeting, 9AM Original Note: <Izabela Luis - Last Filed: 09/11/16 15:36> CCU Subjective - Physician Review Subjective (Free Text): 08/28/16 09:19 Intubated yesterday for abdominal agonal breath. 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, new compared echo 1 year ago 08/30/16 13:53 No Melena overnight CXR - decreased pulm edema with lasix q12 plus 100 IV x 1 HR 60s, BP 100s extubated, on NRB 12L, HR 62, POx 97, BP in high 90s 08/31/16 07:47 Overnight, Got deniz lasix. In addition lopressor x 1 for Sinus tachy at 130s. Bipap at night. This am at A-fib RVR 140s - given bicarb, amiodarone 150 x 1. On amiodarone gtt. Breathing with crackles, pulm suction out pink froths, given 20 Lasix x 1 U/O 200 overnight - oliguric markedly decrease u/o 12/7/35% sat 95 08/31/16 12:47 On high flow, 50L, 40% Finished 2nd bottle of oral contrast for CT abd/pelvis Will go to radiology at 2:30 [facility] afterwards HD to be followed. Notified Dr. Alcazar WBC 28, still high today. 1 BM overnight and 1 BM this afternoon, dark bilous. Sent for C diff testing again. 09/01/16 09:26 1 black BM overnight, large quantity, black, watery. Hold heparin at 3AM, restart at 7AM T 99.9 AM. procal sent Not on bipap overnight. On HFNC 40%, 50L HR 80s. suction out white floths, no pink. Add 1 u pRBC during HD today 1 non-sustained a-fib at noon, pt already on heparin. HR returned to 80s. 09/04/16 11:34 occassional A. flutter, 4:1, non-sustained 93L Bipap 1 bilous green mucoid stool overnight 09/04/16 12:42 Hold heparin for PICC PM Bipap 27/10//60%. RR 26. POx 95% If POx maintained, high flow NS. 09/05/16 08:37 DNI/DNR Family still want max med support Afebrile overnight WBC still trends up to 24.6 despite removal of central line 09/06/16 17:07 diarrhea 50cc overnight Remove rectal tube Meet with Son, Charlotte moya, with Dr. Bashir Samson re: juice via straw. [place] thickened. Son understand the purpose is for pt's comfort, with high risk of choking/aspiration/worsening current respiration status. Family expressed wishes to Palliative and attending doctor yesterday that they want LTAC. Peg tube will be placed once family consent. 09/07/16 13:20 Stop dobutamine drip. cardizem drip On high flow rate control a-fib Pending decision on tunnel cath and peg POA wants LTAC 09/08/16 08:41 HR high 90s to low 100s Will Cardizem if > 130 Pending dialysis. plan PEG then tunnel cath Need to know meds to go to LTAC Sat/Sun/Mon 09/11/16 15:17 HR high 130s, s/p IV cardizem, now HR 80s RR 26 CXR - increase aveolar infiltrate R > L Albumin was given in dialysis today, 2.3 L water extracted CCU Objective - Vital Signs / Intake & Output Vital Signs (Last 4 hours): Vital Signs Temp Pulse Resp BP Pulse Ox 09/11/16 14:07 111 H 30 H 09/11/16 14:00 110 H 34 H 100 09/11/16 13:56 109 H 36 H 09/11/16 13:50 117 H 27 H 99/63 L 100 09/11/16 13:00 118 H 28 H 100 09/11/16 12:53 130 H 27 H 119/85 100 09/11/16 12:51 121 H 26 H 09/11/16 12:48 123 H 24 09/11/16 12:47 117 H 25 H 09/11/16 12:43 129 H 24 09/11/16 12:42 121 H 24 88/52 L 09/11/16 12:41 123 H 25 H 09/11/16 12:40 134 H 24 09/11/16 12:39 140 H 24 09/11/16 12:38 132 H 23 09/11/16 12:37 126 H 24 09/11/16 12:36 126 H 24 09/11/16 12:35 137 H 25 H 09/11/16 12:34 141 H 24 09/11/16 12:33 128 H 25 H 09/11/16 12:32 140 H 25 H 09/11/16 12:31 138 H 26 H 60/26 L 81 L 09/11/16 12:30 136 H 25 H 09/11/16 12:29 141 H 27 H 09/11/16 12:28 134 H 26 H 09/11/16 12:27 137 H 27 H 09/11/16 12:26 126 H 26 H 09/11/16 12:25 141 H 26 H 09/11/16 12:24 131 H 26 H 09/11/16 12:23 125 H 27 H 09/11/16 12:22 125 H 28 H 09/11/16 12:21 143 H 27 H 09/11/16 12:00 98.4 F 123 H 09/11/16 11:48 113 H 31 H 101/85 97 09/11/16 11:42 116 H 30 H 09/11/16 11:41 121 H 29 H 09/11/16 11:40 118 H 30 H 09/11/16 11:39 118 H 29 H 09/11/16 11:38 114 H 30 H 09/11/16 11:33 117 H 29 H 133/54 L 100 09/11/16 11:21 133 H 32 H 112/80 91 L 09/11/16 11:20 138 H 33 H 80/39 L 87 L Intake and Output (Last 8hrs): Intake & Output 09/11/16 09/11/16 09/11/16 06:59 14:59 22:59 Intake Total 880 Output Total 100 Balance 780 Weight 158 lb 11.725 oz Intake: Tube Feeding 480 Other 400 Output: Urine 100 Urethral (Rodrigez) 100 Other: Voiding Method Indwelling Catheter # Bowel Movements 1 - Physical Exam Head: Positive for: Atraumatic, Normocephalic Pupils: Positive for: PERRL Extroacular Muscles: Positive for: EOMI Conjunctiva: Positive for: Other (conjunctival pallor) Mouth: Positive for: Dry Neck: Positive for: MIDLINE TENDERNESS (dressing on R neck d/c/i, shiley in [facility]) . Negative for: JVD Respiratory/Chest: Positive for: Rales. Negative for: Accessory Muscle Use Cardiovascular: Positive for: Normal S1, S2, Irregular Rhythm, Tachycardic ( occasional, during HD, non-sustained). Negative for: Murmurs Abdomen: Positive for: Normal Bowel Sounds. Negative for: Tenderness, Distention, Peritoneal Signs Rectal: Positive for: Hemorrhoids (external). Negative for: Normal Rectal Tone (dilated rectal tone, soft prostate), Fissures Back: Positive for: Normal Inspection Upper Extremity: Positive for: Edema. Negative for: Erythema Lower Extremity: Positive for: Edema (2+ Pitting edema of left LE, with long healed scars; R femoral sheath removed, dressing d/c/i) Neurological: Negative for: Speech Normal (per son, slurred) Skin: Positive for: Warm, Dry, Normal Color. Negative for: Rashes Psychiatric: Positive for: Alert - Medications Active Medications: Active Medications Generic Name Dose Route Start Last Admin Trade Name Freq PRN Reason Stop Dose Admin Acetaminophen 650 mg 08/26/16 16:19 09/10/16 00:19 Tylenol 650 Mg Supp RC 650 mg Q4H PRN Administration Fever >100.4 F Acetylcysteine 3 ml 09/11/16 07:50 09/11/16 07:58 Acetylcysteine 20% IH 3 ml BIDRESP DENIZ Administration Arformoterol Tartrate 15 mcg 08/26/16 20:00 09/11/16 07:46 Brovana IH 15 mcg [id number] DENIZ Administration Artificial Tears 0 ml 09/01/16 12:30 09/11/16 12:04 Artificial Tears OU 1 drop Q6H DENIZ Administration Aspirin 81 mg 09/10/16 10:00 09/11/16 10:50 Aspirin Chewable PO 81 mg DAILY DENIZ Administration Calcium Acetate 667 mg 09/10/16 12:00 09/11/16 12:06 Phoslo GT 667 mg WM DENIZ Administration Diltiazem HCl 5 mg 09/07/16 10:10 09/10/16 11:50 Cardizem IVP 5 mg Q2 PRN Administration Heart rate Heparin Sodium (Porcine) 5,000 units 09/09/16 14:00 09/11/16 14:55 Heparin SC 5,000 units Q8 DENIZ Administration Protocol Hydralazine HCl 10 mg 09/09/16 09:04 09/11/16 15:00 Apresoline PEG Not Given QID DENIZ Linezolid 600 mg in 300 mls @ 200 mls/hr 09/05/16 10:15 09/11/16 09:55 Zyvox 600mg/300ml D5w IVPB 09/12/16 10:16 200 mls/hr Q12 DENIZ Administration Protocol Meropenem 250 mg/ Sodium 100 mls @ 100 mls/hr 09/09/16 22:00 09/11/16 09:55 Chloride IVPB 09/15/16 22:01 100 mls/hr Q12 DENIZ Administration Protocol Insulin Human Lispro 0 units 08/26/16 22:00 09/11/16 12:05 Humalog Low SC 3 units A[facility] Administration Protocol Isosorbide Dinitrate 10 mg 09/09/16 09:05 09/11/16 09:54 Isordil PEG 10 mg Q8H DENIZ Administration Metoprolol Tartrate 50 mg 09/10/16 13:50 09/11/16 09:54 Lopressor PO 50 mg BID DENIZ Administration Pantoprazole Sodium 40 mg 08/26/16 22:00 09/11/16 09:54 Protonix Inj IVP 40 mg Q12 DENIZ Administration Saliva Substitute 0 ml 09/06/16 16:00 09/11/16 12:06 Saliva Substitute PO 1 ml Q4 DENIZ Administration Sodium Chloride 1 ml 09/09/16 16:00 09/11/16 12:05 [place] Nasal [place] NS 1 spray Q4 DENIZ Administration Tetrahydrozoline HCl/Zinc Sulfate 0 ml 08/30/16 21:02 Visine 0.05% Opht Soln OU BID PRN Dry eyes Vitamin A 1 ea 09/04/16 22:00 09/11/16 10:14 Vitamin A & D Oint Ud Foilpak TOP 1 ea Q12 DENIZ Administration - Patient Studies Lab Studies: Microbiology Studies 09/06/16 13:00 Blood Culture - Preliminary Blood-During Dialysis NO GROWTH AFTER 4 DAYS 09/10/16 16:30 Urine Culture - Final Urine No Growth (<1,000 CFU/ML) 09/06/16 14:45 Blood Culture - Preliminary Blood-During Dialysis NO GROWTH AFTER 4 DAYS 09/05/16 11:32 Blood Culture - Final Blood-Venous NO GROWTH AFTER 5 DAYS Gram Stain - Final TEST NOT PERFORMED 09/05/16 11:17 Blood Culture - Final Blood-Venous NO GROWTH AFTER 5 DAYS Gram Stain - Final TEST NOT PERFORMED Lab Studies 09/11/16 09/11/16 09/11/16 Range/Units 08:40 08:40 08:40 WBC 28.6 H* (4.5-11.0) 10^3/ul RBC 3.46 L (3.5-6.1) 10^6/uL Hgb 10.4 L (14.0-18.0) gm/dL Hct 30.1 L (42.0-52.0) % MCV 87.0 (80.0-105.0) fL MCH 30.1 (25.0-35.0) pg MCHC 34.6 (31.0-37.0) g/dl RDW 16.5 H (11.5-14.5) % Plt Count 41 L* (120.0-450.0) 10^3/uL Manual Plt Count 50 L* (120-450) K/mm3 Gran % 95.9 H (50.0-68.0) % Lymph % (Auto) 1.4 L (22.0-35.0) % Gregory % (Auto) 2.7 (1.0-6.0) % Eos % (Auto) 0.0 L (1.5-5.0) % Baso % (Auto) 0.0 (0.0-3.0) % Gran # 27.37 H (1.4-6.5) Lymph # 0.4 L (1.2-3.4) Gregory # 0.8 H (0.1-0.6) Eos # 0.0 (0.0-0.7) Baso # 0.01 (0.0-2.0) K/mm3 PT 13.2 H (9.9-11.8) Seconds INR 1.22 H (0.93-1.08) APTT 41.1 H (23.7-30.8) Seconds pCO2 (35-45) mm/Hg pO2 (80-100) mm/Hg HCO3 (21-28) mmol/L ABG pH (7.35-7.45) ABG Total CO2 (22-28) mmol.L ABG O2 Saturation (95-98) % ABG O2 Content (15-23) ML/dl ABG Base Excess (-2.0-3.0) mmol/L ABG Hemoglobin (11.7-17.4) g/dL ABG Carboxyhemoglobin (0.5-1.5) % POC ABG HHb (Measured) (0-5) % ABG Methemoglobin (0.0-3.0) % ABG O2 Capacity (16-24) mL/dl Hgb O2 Saturation (95.0-98.0) % FiO2 % Sodium 131 L (132-148) mmol/L Potassium 4.5 (3.6-5.0) mmol/L Chloride 100 (95-110) mmol/L Carbon Dioxide 21 (21-33) mmol/L Anion Gap 15 (10-20) BUN 76 H (7-21) mg/dL Creatinine 5.0 H (0.5-1.4) mg/dL Est GFR ( Amer) 14 Est GFR (Non-Af Amer) 11 POC Glucose (mg/dL) (65-110) mg/dL Random Glucose 273 H (70-110) mg/dL Calcium 7.3 L (8.4-10.5) mg/dL Phosphorus 6.7 H (2.5-4.5) mg/dL Magnesium 2.2 (1.7-2.2) mg/dL Total Bilirubin 0.7 (0.2-1.3) mg/dL AST 36 (15-59) U/L ALT 38 (7-56) U/L Alkaline Phosphatase 141 H (38-133) U/L Total Protein 4.8 L (5.8-8.3) g/dL Albumin 2.0 L (3.0-4.8) g/dL Globulin 2.8 gm/dL Albumin/Globulin Ratio 0.7 L (1.1-1.8) Procalcitonin (0.19-0.49) NG/ML Urine Color (YELLOW) Urine Appearance (CLEAR) Urine pH (4.7-8.0) Ur Specific [place] (1.005-1.035) Urine Protein (<30 mg/dL) mg/dL Urine Glucose (UA) (NEGATIVE) mg/dL Urine Ketones (NEGATIVE) mg/dL Urine Blood (NEGATIVE) Urine Nitrate (NEGATIVE) Urine Bilirubin (NEGATIVE) Urine Urobilinogen (<1 E.U./dL) E.U./dL Ur Leukocyte Esterase (NEGATIVE) La/uL Urine RBC (0-2) /hpf Urine WBC (0-6) /hpf Ur Epithelial Cells (0-5) /hpf Urine Bacteria (NEG) 09/11/16 09/11/16 09/10/16 Range/Units 07:13 06:00 21:46 WBC (4.5-11.0) 10^3/ul RBC (3.5-6.1) 10^6/uL Hgb (14.0-18.0) gm/dL Hct (42.0-52.0) % MCV (80.0-105.0) fL MCH (25.0-35.0) pg MCHC (31.0-37.0) g/dl RDW (11.5-14.5) % Plt Count (120.0-450.0) 10^3/uL Manual Plt Count (120-450) K/mm3 Gran % (50.0-68.0) % Lymph % (Auto) (22.0-35.0) % Gregory % (Auto) (1.0-6.0) % Eos % (Auto) (1.5-5.0) % Baso % (Auto) (0.0-3.0) % Gran # (1.4-6.5) Lymph # (1.2-3.4) Gregory # (0.1-0.6) Eos # (0.0-0.7) Baso # (0.0-2.0) K/mm3 PT (9.9-11.8) Seconds INR (0.93-1.08) APTT (23.7-30.8) Seconds pCO2 26 L (35-45) mm/Hg pO2 64.0 L (80-100) mm/Hg HCO3 17.3 L (21-28) mmol/L ABG pH 7.43 (7.35-7.45) ABG Total CO2 18.1 L (22-28) mmol.L ABG O2 Saturation 95.4 (95-98) % ABG O2 Content 11.7 L (15-23) ML/dl ABG Base Excess -6.0 L (-2.0-3.0) mmol/L ABG Hemoglobin 8.9 L (11.7-17.4) g/dL ABG Carboxyhemoglobin 1.8 H (0.5-1.5) % POC ABG HHb (Measured) 4.5 (0-5) % ABG Methemoglobin 0.8 (0.0-3.0) % ABG O2 Capacity 12.3 L (16-24) mL/dl Hgb O2 Saturation 93.0 L (95.0-98.0) % FiO2 65.0 % Sodium (132-148) mmol/L Potassium (3.6-5.0) mmol/L Chloride (95-110) mmol/L Carbon Dioxide (21-33) mmol/L Anion Gap (10-20) BUN (7-21) mg/dL Creatinine (0.5-1.4) mg/dL Est GFR ( Amer) Est GFR (Non-Af Amer) POC Glucose (mg/dL) 280 H 137 H (65-110) mg/dL Random Glucose (70-110) mg/dL Calcium (8.4-10.5) mg/dL Phosphorus (2.5-4.5) mg/dL Magnesium (1.7-2.2) mg/dL Total Bilirubin (0.2-1.3) mg/dL AST (15-59) U/L ALT (7-56) U/L Alkaline Phosphatase (38-133) U/L Total Protein (5.8-8.3) g/dL Albumin (3.0-4.8) g/dL Globulin gm/dL Albumin/Globulin Ratio (1.1-1.8) Procalcitonin (0.19-0.49) NG/ML Urine Color (YELLOW) Urine Appearance (CLEAR) Urine pH (4.7-8.0) Ur Specific [place] (1.005-1.035) Urine Protein (<30 mg/dL) mg/dL Urine Glucose (UA) (NEGATIVE) mg/dL Urine Ketones (NEGATIVE) mg/dL Urine Blood (NEGATIVE) Urine Nitrate (NEGATIVE) Urine Bilirubin (NEGATIVE) Urine Urobilinogen (<1 E.U./dL) E.U./dL Ur Leukocyte Esterase (NEGATIVE) La/uL Urine RBC (0-2) /hpf Urine WBC (0-6) /hpf Ur Epithelial Cells (0-5) /hpf Urine Bacteria (NEG) 09/10/16 09/10/16 09/10/16 Range/Units 16:30 16:01 16:00 WBC (4.5-11.0) 10^3/ul RBC (3.5-6.1) 10^6/uL Hgb (14.0-18.0) gm/dL Hct (42.0-52.0) % MCV (80.0-105.0) fL MCH (25.0-35.0) pg MCHC (31.0-37.0) g/dl RDW (11.5-14.5) % Plt Count (120.0-450.0) 10^3/uL Manual Plt Count (120-450) K/mm3 Gran % (50.0-68.0) % Lymph % (Auto) (22.0-35.0) % Gregory % (Auto) (1.0-6.0) % Eos % (Auto) (1.5-5.0) % Baso % (Auto) (0.0-3.0) % Gran # (1.4-6.5) Lymph # (1.2-3.4) Gregory # (0.1-0.6) Eos # (0.0-0.7) Baso # (0.0-2.0) K/mm3 PT (9.9-11.8) Seconds INR (0.93-1.08) APTT (23.7-30.8) Seconds pCO2 (35-45) mm/Hg pO2 (80-100) mm/Hg HCO3 (21-28) mmol/L ABG pH (7.35-7.45) ABG Total CO2 (22-28) mmol.L ABG O2 Saturation (95-98) % ABG O2 Content (15-23) ML/dl ABG Base Excess (-2.0-3.0) mmol/L ABG Hemoglobin (11.7-17.4) g/dL ABG Carboxyhemoglobin (0.5-1.5) % POC ABG HHb (Measured) (0-5) % ABG Methemoglobin (0.0-3.0) % ABG O2 Capacity (16-24) mL/dl Hgb O2 Saturation (95.0-98.0) % FiO2 % Sodium (132-148) mmol/L Potassium (3.6-5.0) mmol/L Chloride (95-110) mmol/L Carbon Dioxide (21-33) mmol/L Anion Gap (10-20) BUN (7-21) mg/dL Creatinine (0.5-1.4) mg/dL Est GFR ( Amer) Est GFR (Non-Af Amer) POC Glucose (mg/dL) 242 H (65-110) mg/dL Random Glucose (70-110) mg/dL Calcium (8.4-10.5) mg/dL Phosphorus (2.5-4.5) mg/dL Magnesium (1.7-2.2) mg/dL Total Bilirubin (0.2-1.3) mg/dL AST (15-59) U/L ALT (7-56) U/L Alkaline Phosphatase (38-133) U/L Total Protein (5.8-8.3) g/dL Albumin (3.0-4.8) g/dL Globulin gm/dL Albumin/Globulin Ratio (1.1-1.8) Procalcitonin 8.47 H (0.19-0.49) NG/ML Urine Color Yellow (YELLOW) Urine Appearance Sl cloudy (CLEAR) Urine pH 5.5 (4.7-8.0) Ur Specific [place] 1.025 (1.005-1.035) Urine Protein >=300 H (<30 mg/dL) mg/dL Urine Glucose (UA) 100 H (NEGATIVE) mg/dL Urine Ketones Trace H (NEGATIVE) mg/dL Urine Blood Large H (NEGATIVE) Urine Nitrate Negative (NEGATIVE) Urine Bilirubin Negative (NEGATIVE) Urine Urobilinogen 0.2 (<1 E.U./dL) E.U./dL Ur Leukocyte Esterase Negative (NEGATIVE) La/uL Urine RBC 5 - 10 (0-2) /hpf Urine WBC 15 - 20 (0-6) /hpf Ur Epithelial Cells 4 - 5 (0-5) /hpf Urine Bacteria Many (NEG) Laboratory Results - last 24 hr 09/10/16 09/10/16 09/10/16 16:00 16:01 16:30 WBC RBC Hgb Hct MCV MCH MCHC RDW Plt Count Manual Plt Count Gran % Lymph % (Auto) Gregory % (Auto) Eos % (Auto) Baso % (Auto) Gran # Lymph # Gregory # Eos # Baso # PT INR APTT pCO2 pO2 HCO3 ABG pH ABG Total CO2 ABG O2 Saturation ABG O2 Content ABG Base Excess ABG Hemoglobin ABG Carboxyhemoglobin POC ABG HHb (Measured) ABG Methemoglobin ABG O2 Capacity Hgb O2 Saturation FiO2 Sodium Potassium Chloride Carbon Dioxide Anion Gap BUN Creatinine Est GFR ( Amer) Est GFR (Non-Af Amer) POC Glucose (mg/dL) 242 H Random Glucose Calcium Phosphorus Magnesium Total Bilirubin AST ALT Alkaline Phosphatase Total Protein Albumin Globulin Albumin/Globulin Ratio Procalcitonin 8.47 H Urine Color Yellow Urine Appearance Sl cloudy Urine pH 5.5 Ur Specific [place] 1.025 Urine Protein >=300 H Urine Glucose (UA) 100 H Urine Ketones Trace H Urine Blood Large H Urine Nitrate Negative Urine Bilirubin Negative Urine Urobilinogen 0.2 Ur Leukocyte Esterase Negative Urine RBC 5 - 10 Urine WBC 15 - 20 Ur Epithelial Cells 4 - 5 Urine Bacteria Many 09/10/16 09/11/16 09/11/16 21:46 06:00 07:13 WBC RBC Hgb Hct MCV MCH MCHC RDW Plt Count Manual Plt Count Gran % Lymph % (Auto) Gregory % (Auto) Eos % (Auto) Baso % (Auto) Gran # Lymph # Gregory # Eos # Baso # PT INR APTT pCO2 26 L pO2 64.0 L HCO3 17.3 L ABG pH 7.43 ABG Total CO2 18.1 L ABG O2 Saturation 95.4 ABG O2 Content 11.7 L ABG Base Excess -6.0 L ABG Hemoglobin 8.9 L ABG Carboxyhemoglobin 1.8 H POC ABG HHb (Measured) 4.5 ABG Methemoglobin 0.8 ABG O2 Capacity 12.3 L Hgb O2 Saturation 93.0 L FiO2 65.0 Sodium Potassium Chloride Carbon Dioxide Anion Gap BUN Creatinine Est GFR ( Amer) Est GFR (Non-Af Amer) POC Glucose (mg/dL) 137 H 280 H Random Glucose Calcium Phosphorus Magnesium Total Bilirubin AST ALT Alkaline Phosphatase Total Protein Albumin Globulin Albumin/Globulin Ratio Procalcitonin Urine Color Urine Appearance Urine pH Ur Specific [place] Urine Protein Urine Glucose (UA) Urine Ketones Urine Blood Urine Nitrate Urine Bilirubin Urine Urobilinogen Ur Leukocyte Esterase Urine RBC Urine WBC Ur Epithelial Cells Urine Bacteria 09/11/16 09/11/16 09/11/16 08:40 08:40 08:40 WBC 28.6 H* RBC 3.46 L Hgb 10.4 L Hct 30.1 L MCV 87.0 MCH 30.1 MCHC 34.6 RDW 16.5 H Plt Count 41 L* Manual Plt Count 50 L* Gran % 95.9 H Lymph % (Auto) 1.4 L Gregory % (Auto) 2.7 Eos % (Auto) 0.0 L Baso % (Auto) 0.0 Gran # 27.37 H Lymph # 0.4 L Gregory # 0.8 H Eos # 0.0 Baso # 0.01 PT 13.2 H INR 1.22 H APTT 41.1 H pCO2 pO2 HCO3 ABG pH ABG Total CO2 ABG O2 Saturation ABG O2 Content ABG Base Excess ABG Hemoglobin ABG Carboxyhemoglobin POC ABG HHb (Measured) ABG Methemoglobin ABG O2 Capacity Hgb O2 Saturation FiO2 Sodium 131 L Potassium 4.5 Chloride 100 Carbon Dioxide 21 Anion Gap 15 BUN 76 H Creatinine 5.0 H Est GFR ( Amer) 14 Est GFR (Non-Af Amer) 11 POC Glucose (mg/dL) Random Glucose 273 H Calcium 7.3 L Phosphorus 6.7 H Magnesium 2.2 Total Bilirubin 0.7 AST 36 ALT 38 Alkaline Phosphatase 141 H Total Protein 4.8 L Albumin 2.0 L Globulin 2.8 Albumin/Globulin Ratio 0.7 L Procalcitonin Urine Color Urine Appearance Urine pH Ur Specific [place] Urine Protein Urine Glucose (UA) Urine Ketones Urine Blood Urine Nitrate Urine Bilirubin Urine Urobilinogen Ur Leukocyte Esterase Urine RBC Urine WBC Ur Epithelial Cells Urine Bacteria Fingerstick Blood Sugar Results: 252 Critical Care Progress Note - Nutrition Nutrition: Nutrition Category Date Time Status NPO Diet [DIET] Diets 09/04/16 Breakfast Ordered Assessment/Plan - Assessment and Plan (Free Text) Plan: 81 years old male, AAO x 3 at baseline, living alone, with CAD s/p stent on plaix and CKD stage 4, parosximal A-fib not anticoagulated, Hx stroke with L weakness > 1 yr ago, Hx chronic ITP, was found unconscious on the floor on Sunday (08/26) covered with melonic stool with maroon blood clots. Pt had worsened L weakness compared to baseline, slurred speech, and new L nathan- neglect on Good Sunday (08/25). He was admitted to ICU with massive upper GI bleed. NSTEMI is due to Type 2 ND. Cardiac catherterization showed triple vessel disease with diffuse artheroscloerosis with no new blockage. Not CABG candidate. He has CHF, acute on chronic, diastolic and systolic (EF 30s), from ischemic cardiomyopathy, s/p inotrop and cardizem gtt. Elevated transaminase is now resolved. Pt is now on dialysis, requiring long-term. He is extubated (on , and again on 09/03) for agonal breathing to compensate metabolic acidosis and pleural edema/effusion - now on high/flow, Bipap. WBC trends up to 27. Afebrile. New diarrhea, resolved, pending C.diff. Central line was out and got New PICC. Blood culture / urine culture negative. Sputum grew yeast. He had A- fib RVR with new splenic infarct, s/p amiodarone gtt, s/p cardizem gtt, s/p heparin gtt. Now heparin q8. HD today. Tunnel cath placement and PEG placed on . Tube feeding on going. Plan Neuro - Lethargic, mentation improves, able to follow commands, verbalized to son that he felt thirsty and like the apple juice with nectar thickener. - Family consent to feeding pt with nectar thickened liquid via straw. Family understand the risk of worsening current respiratory status and consequence of mortality. Cardio - ASA, hydralazine 10 QID, [place] 10 q8. Lopressor 50 BID - D/C dobutamin 2.5 mcg gtt - Cardizem 5 PRN if HR > 130 - Type 2 ND, NSTEMI; Hb goal in ND is Hb 10 Pulm - CXR: b/l infiltrate. R worsen - On bipap. - On Brovana BID, acetylcystein 20% 3ml BID - pt not improved in resp status - Goal is to decrease pulmonary support s/p dialysis - Increased secretion - Reposition, Chest PT, Duoneb PRN, Suction PRN, pulm toiletry PRN GI - Tube feed via PEG - Protonix 20 qd - Bedside endoscopy (09/08) increased ulcer, clean based - Bedside Endoscopy (08/28) showed no active bleed, barretts and PUD (1 organized healed scab, 2 clean based) no web - Chest, abdomen, pelvis w.o contrast: Proctitis - Abd u/s: Cholelithiasis with gallbladder wall thickening; small perocholecystic fluid. No sono martinez sign. Fatty liver Nephro - Dialysis today - Oliguric - Goal: negative fluid balance Endo - Hx non-IDDM - ISSS-low. - Goal blood sugar 140-180 - Avoid Kayexaltate in setting of GI bleed Heme - Hx ITP, Prosca on hold, Plt 41 - LE ticoplers b/l negative Skin - stage 2 sacral - turn q2, air mattress, dressing, heel foams - New PICC (09/05), new tunnel cath (09/08) Infectious - WBC 33 --> 29 - Pending blood culture drawn from [facility]. - Sputum culture (+) yeast - day 7 pf meropenem and Zyvox - C. diff sent again. No sign of phlebitis on lines Prophlaxis - heparin gtt - hold for procedure - Protonix GI bleed dose Disposition/Prognosis - DNR/DNI - POA agrees with [facility] - Family meeting at 4 S/R/D/w Dr. Lizzie Rouse - Date & Time Date: 09/11/16 Time: 15:21 <Nasim PHILIP,Cristi H - Last Filed: 09/11/16 18:57> CCU Objective - Vital Signs / Intake & Output Vital Signs (Last 4 hours): Vital Signs Temp Pulse Resp BP Pulse Ox 09/11/16 18:13 92 H 18 138/86 100 09/11/16 18:00 94 H 20 98 09/11/16 17:01 93 H 27 H 98/37 L 100 09/11/16 17:00 101 H 26 H 100 09/11/16 16:00 97.6 F 97 H 30 H 111/57 L 100 09/11/16 15:10 118 H 115/65 09/11/16 15:00 109 H 27 H 115/65 97 Intake and Output (Last 8hrs): Intake & Output 09/11/16 09/11/16 09/11/16 06:59 14:59 22:59 Intake Total 880 950 Output Total 100 2300 Balance 780 -1350 Weight 158 lb 11.725 oz Intake: IV 400 Right Upper arm 400 Oral 0 Tube Feeding 480 440 Albumin 50 Other 400 60 Output: Urine 100 Urethral (Rodrigez) 100 Other 2300 Other: Voiding Method Indwelling Catheter # Bowel Movements 1 2 - Medications Active Medications: Active Medications Generic Name Dose Route Start Last Admin Trade Name Freq PRN Reason Stop Dose Admin Acetaminophen 650 mg 08/26/16 16:19 09/10/16 00:19 Tylenol 650 Mg Supp RC 650 mg Q4H PRN Administration Fever >100.4 F Acetylcysteine 3 ml 09/11/16 07:50 09/11/16 07:58 Acetylcysteine 20% IH 3 ml BIDRESP DENIZ Administration Arformoterol Tartrate 15 mcg 08/26/16 20:00 09/11/16 07:46 Brovana IH 15 mcg [id number] DENIZ Administration Artificial Tears 0 ml 09/01/16 12:30 09/11/16 12:04 Artificial Tears OU 1 drop Q6H DENIZ Administration Aspirin 81 mg 09/10/16 10:00 09/11/16 10:50 Aspirin Chewable PO 81 mg DAILY DENIZ Administration Calcium Acetate 667 mg 09/10/16 12:00 09/11/16 12:06 Phoslo GT 667 mg WM DENIZ Administration Diltiazem HCl 5 mg 09/07/16 10:10 09/11/16 15:10 Cardizem IVP 5 mg Q2 PRN Administration Heart rate Heparin Sodium (Porcine) 5,000 units 09/09/16 14:00 09/11/16 14:55 Heparin SC 5,000 units Q8 DENIZ Administration Protocol Hydralazine HCl 10 mg 09/09/16 09:04 09/11/16 15:00 Apresoline PEG Not Given QID DENIZ Linezolid 600 mg in 300 mls @ 200 mls/hr 09/05/16 10:15 09/11/16 09:55 Zyvox 600mg/300ml D5w IVPB 09/12/16 10:16 200 mls/hr Q12 DENIZ Administration Protocol Meropenem 250 mg/ Sodium 100 mls @ 100 mls/hr 09/09/16 22:00 09/11/16 09:55 Chloride IVPB 09/15/16 22:01 100 mls/hr Q12 DENIZ Administration Protocol Insulin Human Lispro 0 units 08/26/16 22:00 09/11/16 17:01 Humalog Low SC Not Given ACHS DENIZ Protocol Isosorbide Dinitrate 10 mg 09/09/16 09:05 09/11/16 09:54 Isordil PEG 10 mg Q8H DENIZ Administration Lorazepam 2 mg 09/11/16 17:00 Ativan IVP Q1H PRN Anxiety Protocol Metoprolol Tartrate 50 mg 09/10/16 13:50 09/11/16 09:54 Lopressor PO 50 mg BID DENIZ Administration Morphine Sulfate 3 mg 09/11/16 16:52 Morphine IVP Q1H PRN Shortness of Breath Saliva Substitute 0 ml 09/06/16 16:00 09/11/16 16:25 Saliva Substitute PO 1 ml Q4 DENIZ Administration Sodium Chloride 1 ml 09/09/16 16:00 09/11/16 16:25 [place] Nasal [place] NS 1 spray Q4 DENIZ Administration Tetrahydrozoline HCl/Zinc Sulfate 0 ml 08/30/16 21:02 Visine 0.05% Opht Soln OU BID PRN Dry eyes Vitamin A 1 ea 09/04/16 22:00 09/11/16 10:14 Vitamin A & D Oint Ud Foilpak TOP 1 ea Q12 DENIZ Administration - Patient Studies Lab Studies: Microbiology Studies 09/06/16 14:45 Blood Culture - Final Blood-During Dialysis NO GROWTH AFTER 5 DAYS Gram Stain - Final TEST NOT PERFORMED 09/10/16 16:30 Blood Culture - Preliminary Blood NO GROWTH AFTER 24 HOURS 09/10/16 16:15 Blood Culture - Preliminary Blood NO GROWTH AFTER 24 HOURS 09/06/16 13:00 Blood Culture - Preliminary Blood-During Dialysis NO GROWTH AFTER 4 DAYS 09/10/16 16:30 Urine Culture - Final Urine No Growth (<1,000 CFU/ML) Lab Studies 09/11/16 09/11/16 09/11/16 Range/Units 16:48 11:19 08:40 WBC 28.6 H* (4.5-11.0) 10^3/ul RBC 3.46 L (3.5-6.1) 10^6/uL Hgb 10.4 L (14.0-18.0) gm/dL Hct 30.1 L (42.0-52.0) % MCV 87.0 (80.0-105.0) fL MCH 30.1 (25.0-35.0) pg MCHC 34.6 (31.0-37.0) g/dl RDW 16.5 H (11.5-14.5) % Plt Count 41 L* (120.0-450.0) 10^3/uL Manual Plt Count 50 L* (120-450) K/mm3 Gran % 95.9 H (50.0-68.0) % Lymph % (Auto) 1.4 L (22.0-35.0) % Gregory % (Auto) 2.7 (1.0-6.0) % Eos % (Auto) 0.0 L (1.5-5.0) % Baso % (Auto) 0.0 (0.0-3.0) % Gran # 27.37 H (1.4-6.5) Lymph # 0.4 L (1.2-3.4) Gregory # 0.8 H (0.1-0.6) Eos # 0.0 (0.0-0.7) Baso # 0.01 (0.0-2.0) K/mm3 PT (9.9-11.8) Seconds INR (0.93-1.08) APTT (23.7-30.8) Seconds pCO2 (35-45) mm/Hg pO2 (80-100) mm/Hg HCO3 (21-28) mmol/L ABG pH (7.35-7.45) ABG Total CO2 (22-28) mmol.L ABG O2 Saturation (95-98) % ABG O2 Content (15-23) ML/dl ABG Base Excess (-2.0-3.0) mmol/L ABG Hemoglobin (11.7-17.4) g/dL ABG Carboxyhemoglobin (0.5-1.5) % POC ABG HHb (Measured) (0-5) % ABG Methemoglobin (0.0-3.0) % ABG O2 Capacity (16-24) mL/dl Hgb O2 Saturation (95.0-98.0) % FiO2 % Sodium (132-148) mmol/L Potassium (3.6-5.0) mmol/L Chloride (95-110) mmol/L Carbon Dioxide (21-33) mmol/L Anion Gap (10-20) BUN (7-21) mg/dL Creatinine (0.5-1.4) mg/dL Est GFR ( Amer) Est GFR (Non-Af Amer) POC Glucose (mg/dL) 99 252 H (65-110) mg/dL Random Glucose (70-110) mg/dL Calcium (8.4-10.5) mg/dL Phosphorus (2.5-4.5) mg/dL Magnesium (1.7-2.2) mg/dL Total Bilirubin (0.2-1.3) mg/dL AST (15-59) U/L ALT (7-56) U/L Alkaline Phosphatase (38-133) U/L Total Protein (5.8-8.3) g/dL Albumin (3.0-4.8) g/dL Globulin gm/dL Albumin/Globulin Ratio (1.1-1.8) Procalcitonin (0.19-0.49) NG/ML 09/11/16 09/11/16 09/11/16 Range/Units 08:40 08:40 07:13 WBC (4.5-11.0) 10^3/ul RBC (3.5-6.1) 10^6/uL Hgb (14.0-18.0) gm/dL Hct (42.0-52.0) % MCV (80.0-105.0) fL MCH (25.0-35.0) pg MCHC (31.0-37.0) g/dl RDW (11.5-14.5) % Plt Count (120.0-450.0) 10^3/uL Manual Plt Count (120-450) K/mm3 Gran % (50.0-68.0) % Lymph % (Auto) (22.0-35.0) % Gregory % (Auto) (1.0-6.0) % Eos % (Auto) (1.5-5.0) % Baso % (Auto) (0.0-3.0) % Gran # (1.4-6.5) Lymph # (1.2-3.4) Gregory # (0.1-0.6) Eos # (0.0-0.7) Baso # (0.0-2.0) K/mm3 PT 13.2 H (9.9-11.8) Seconds INR 1.22 H (0.93-1.08) APTT 41.1 H (23.7-30.8) Seconds pCO2 (35-45) mm/Hg pO2 (80-100) mm/Hg HCO3 (21-28) mmol/L ABG pH (7.35-7.45) ABG Total CO2 (22-28) mmol.L ABG O2 Saturation (95-98) % ABG O2 Content (15-23) ML/dl ABG Base Excess (-2.0-3.0) mmol/L ABG Hemoglobin (11.7-17.4) g/dL ABG Carboxyhemoglobin (0.5-1.5) % POC ABG HHb (Measured) (0-5) % ABG Methemoglobin (0.0-3.0) % ABG O2 Capacity (16-24) mL/dl Hgb O2 Saturation (95.0-98.0) % FiO2 % Sodium 131 L (132-148) mmol/L Potassium 4.5 (3.6-5.0) mmol/L Chloride 100 (95-110) mmol/L Carbon Dioxide 21 (21-33) mmol/L Anion Gap 15 (10-20) BUN 76 H (7-21) mg/dL Creatinine 5.0 H (0.5-1.4) mg/dL Est GFR ( Amer) 14 Est GFR (Non-Af Amer) 11 POC Glucose (mg/dL) 280 H (65-110) mg/dL Random Glucose 273 H (70-110) mg/dL Calcium 7.3 L (8.4-10.5) mg/dL Phosphorus 6.7 H (2.5-4.5) mg/dL Magnesium 2.2 (1.7-2.2) mg/dL Total Bilirubin 0.7 (0.2-1.3) mg/dL AST 36 (15-59) U/L ALT 38 (7-56) U/L Alkaline Phosphatase 141 H (38-133) U/L Total Protein 4.8 L (5.8-8.3) g/dL Albumin 2.0 L (3.0-4.8) g/dL Globulin 2.8 gm/dL Albumin/Globulin Ratio 0.7 L (1.1-1.8) Procalcitonin (0.19-0.49) NG/ML 09/11/16 09/10/16 09/10/16 Range/Units 06:00 21:46 16:30 WBC (4.5-11.0) 10^3/ul RBC (3.5-6.1) 10^6/uL Hgb (14.0-18.0) gm/dL Hct (42.0-52.0) % MCV (80.0-105.0) fL MCH (25.0-35.0) pg MCHC (31.0-37.0) g/dl RDW (11.5-14.5) % Plt Count (120.0-450.0) 10^3/uL Manual Plt Count (120-450) K/mm3 Gran % (50.0-68.0) % Lymph % (Auto) (22.0-35.0) % Gregory % (Auto) (1.0-6.0) % Eos % (Auto) (1.5-5.0) % Baso % (Auto) (0.0-3.0) % Gran # (1.4-6.5) Lymph # (1.2-3.4) Gregory # (0.1-0.6) Eos # (0.0-0.7) Baso # (0.0-2.0) K/mm3 PT (9.9-11.8) Seconds INR (0.93-1.08) APTT (23.7-30.8) Seconds pCO2 26 L (35-45) mm/Hg pO2 64.0 L (80-100) mm/Hg HCO3 17.3 L (21-28) mmol/L ABG pH 7.43 (7.35-7.45) ABG Total CO2 18.1 L (22-28) mmol.L ABG O2 Saturation 95.4 (95-98) % ABG O2 Content 11.7 L (15-23) ML/dl ABG Base Excess -6.0 L (-2.0-3.0) mmol/L ABG Hemoglobin 8.9 L (11.7-17.4) g/dL ABG Carboxyhemoglobin 1.8 H (0.5-1.5) % POC ABG HHb (Measured) 4.5 (0-5) % ABG Methemoglobin 0.8 (0.0-3.0) % ABG O2 Capacity 12.3 L (16-24) mL/dl Hgb O2 Saturation 93.0 L (95.0-98.0) % FiO2 65.0 % Sodium (132-148) mmol/L Potassium (3.6-5.0) mmol/L Chloride (95-110) mmol/L Carbon Dioxide (21-33) mmol/L Anion Gap (10-20) BUN (7-21) mg/dL Creatinine (0.5-1.4) mg/dL Est GFR ( Amer) Est GFR (Non-Af Amer) POC Glucose (mg/dL) 137 H (65-110) mg/dL Random Glucose (70-110) mg/dL Calcium (8.4-10.5) mg/dL Phosphorus (2.5-4.5) mg/dL Magnesium (1.7-2.2) mg/dL Total Bilirubin (0.2-1.3) mg/dL AST (15-59) U/L ALT (7-56) U/L Alkaline Phosphatase (38-133) U/L Total Protein (5.8-8.3) g/dL Albumin (3.0-4.8) g/dL Globulin gm/dL Albumin/Globulin Ratio (1.1-1.8) Procalcitonin 8.47 H (0.19-0.49) NG/ML Laboratory Results - last 24 hr 09/10/16 09/10/16 09/11/16 16:30 21:46 06:00 WBC RBC Hgb Hct MCV MCH MCHC RDW Plt Count Manual Plt Count Gran % Lymph % (Auto) Gregory % (Auto) Eos % (Auto) Baso % (Auto) Gran # Lymph # Gregory # Eos # Baso # PT INR APTT pCO2 26 L pO2 64.0 L HCO3 17.3 L ABG pH 7.43 ABG Total CO2 18.1 L ABG O2 Saturation 95.4 ABG O2 Content 11.7 L ABG Base Excess -6.0 L ABG Hemoglobin 8.9 L ABG Carboxyhemoglobin 1.8 H POC ABG HHb (Measured) 4.5 ABG Methemoglobin 0.8 ABG O2 Capacity 12.3 L Hgb O2 Saturation 93.0 L FiO2 65.0 Sodium Potassium Chloride Carbon Dioxide Anion Gap BUN Creatinine Est GFR ( Amer) Est GFR (Non-Af Amer) POC Glucose (mg/dL) 137 H Random Glucose Calcium Phosphorus Magnesium Total Bilirubin AST ALT Alkaline Phosphatase Total Protein Albumin Globulin Albumin/Globulin Ratio Procalcitonin 8.47 H 09/11/16 09/11/16 09/11/16 07:13 08:40 08:40 WBC RBC Hgb Hct MCV MCH MCHC RDW Plt Count Manual Plt Count Gran % Lymph % (Auto) Gregory % (Auto) Eos % (Auto) Baso % (Auto) Gran # Lymph # Gregory # Eos # Baso # PT 13.2 H INR 1.22 H APTT 41.1 H pCO2 pO2 HCO3 ABG pH ABG Total CO2 ABG O2 Saturation ABG O2 Content ABG Base Excess ABG Hemoglobin ABG Carboxyhemoglobin POC ABG HHb (Measured) ABG Methemoglobin ABG O2 Capacity Hgb O2 Saturation FiO2 Sodium 131 L Potassium 4.5 Chloride 100 Carbon Dioxide 21 Anion Gap 15 BUN 76 H Creatinine 5.0 H Est GFR ( Amer) 14 Est GFR (Non-Af Amer) 11 POC Glucose (mg/dL) 280 H Random Glucose 273 H Calcium 7.3 L Phosphorus 6.7 H Magnesium 2.2 Total Bilirubin 0.7 AST 36 ALT 38 Alkaline Phosphatase 141 H Total Protein 4.8 L Albumin 2.0 L Globulin 2.8 Albumin/Globulin Ratio 0.7 L Procalcitonin 09/11/16 09/11/16 09/11/16 08:40 11:19 16:48 WBC 28.6 H* RBC 3.46 L Hgb 10.4 L Hct 30.1 L MCV 87.0 MCH 30.1 MCHC 34.6 RDW 16.5 H Plt Count 41 L* Manual Plt Count 50 L* Gran % 95.9 H Lymph % (Auto) 1.4 L Gregory % (Auto) 2.7 Eos % (Auto) 0.0 L Baso % (Auto) 0.0 Gran # 27.37 H Lymph # 0.4 L Gregory # 0.8 H Eos # 0.0 Baso # 0.01 PT INR APTT pCO2 pO2 HCO3 ABG pH ABG Total CO2 ABG O2 Saturation ABG O2 Content ABG Base Excess ABG Hemoglobin ABG Carboxyhemoglobin POC ABG HHb (Measured) ABG Methemoglobin ABG O2 Capacity Hgb O2 Saturation FiO2 Sodium Potassium Chloride Carbon Dioxide Anion Gap BUN Creatinine Est GFR ( Amer) Est GFR (Non-Af Amer) POC Glucose (mg/dL) 252 H 99 Random Glucose Calcium Phosphorus Magnesium Total Bilirubin AST ALT Alkaline Phosphatase Total Protein Albumin Globulin Albumin/Globulin Ratio Procalcitonin Critical Care Progress Note - Nutrition Nutrition: Nutrition Category Date Time Status NPO Diet [DIET] Diets 09/04/16 Breakfast Ordered Attending/Attestation - Attestation I have personally seen and examined this patient.: Yes I have fully participated in the care of the patient.: Yes I have reviewed all pertinent clinical information: Yes Notes (Text): 09/11/16 18:55 81 y/o M w/ MODS At this point the patient has been on multiple supportive measures to help out his clinical situation In the past 2 weeks he has made little progress. Family meeting with social work and paliative care was held. His son JERRY was present. It was decided that the patient become COMFORT Care measures only . Plan to start Morphine prn , ativan PRN, Oxygen NC. No PEG FEEDS NO BIPAP or HFNC Plan for in patient HOSPICE if > 24 hrs in the ICU. cc time 65 min
[2016-09-11 16:42] VITALS: TEMP 97.6
[2016-09-11] MEDS ORDERED: Morphine 4 mg/ml ISec IVP PRN (16:52)
[2016-09-11] MEDS ORDERED: Morphine 4 mg/ml ISec IVP ONE ×2 (17:00)
[2016-09-11] MEDS ORDERED: Morphine 2 mg/ml ISec IVP PRN (17:00)
--- NOTE | 2016-09-11 18:31 | PN ---
DATE: 09/11/2016 SUBJECTIVE: The patient is seen earlier today in 129, bed 1. No fevers and no chills. PHYSICAL EXAMINATION: VITAL SIGNS: He did have a low-grade temperature earlier of 100.1. Blood pressure is 117/50, respir atory rate of 18. HEENT: Unremarkable. NECK: Supple. LUNGS: Decreased breath sounds. HEART: Normal S1, S2. ABDOMEN: Soft, nontender. LABORATORY DATA: Reveals the patient's white count is 28,600, hemoglobin of 10, patient's platelets are 41, 95% granulocytosis. Chemistries reveal the BUN of 76, creatinine of 5.0, alkaline phosphatas e is 141. Procalcitonin is 8.47. Urinalysis is noted. Vancomycin random level of 11 from 7. REVIEW OF ORDERS: Reveals the patient to be on meropenem, was on hold, and Zyvox is on hold. MICROBIOLOGY: Reveals the blood culture is negative. Urine cultures are negative. Dr. ____ progress note is reviewed. Dr. Alcazar's note is reviewed. Dr. Bashir Samson's note is reviewed . Laura Taylor's note is reviewed. The chest x-ray from today is increasing alveolar infiltrates. ASSESSMENT AND PLAN: This is an 81-year-old [place] male admitted with severe sepsis, healthcare-asso ciated pneumonia, acute and chronic renal failure, lactic acidosis, [id number] myocardial infar ction in the face of acute systolic congestive heart failure. On Zyvox and meropenem, day #10. Over all prognosis is quite poor. Should consider supportive care. Antibiotics on hold. Discussion abou t supportive care and hospice setting in this patient who appears to be end stage and prognosis is qu ite poor. Kamran Jay MD cc: [id number] TT: 09/11/2016 18:31:16 Confirmation # [id number] Dictation # [id number] mn
[2016-09-11 18:49] VITALS: BP 138/86
[2016-09-11 19:44] VITALS: O2SAT 94
[2016-09-11 21:04] VITALS: PULSE 62; RESP 13
--- NOTE | 2016-09-11 21:18 | PN ---
DATE: 09/11/2016 REFERRING PHYSICIAN: Dr. Myers. SUBJECTIVE: The patient is on noninvasive ventilation, shallow breathing. There is no hemoptysis. No vomiting. No hematuria. No diarrhea. Has leg swelling. OBJECTIVE: GENERAL: Moderate to severe distress. VITAL SIGNS: Afebrile, heart rate is 106, respiratory rate is 20, blood pressure 138/86, pulse ox 98 % on noninvasive ventilation. NECK: Supple. No JVD. LUNGS: Has poor air flow with scattered rhonchi and crackles. HEART: S1, S2. ABDOMEN: Soft, nontender, nondistended. G-tube area looks okay. EXTREMITIES: There is some edema. NEUROLOGIC: Very lethargic. MEDICATIONS: He is on Mucomyst 20% inhaled which is on hold, getting Ativan 2 mg q. 4 hours p.r.n., morphine 3 mg IV q. 4 hours p.r.n., nasal saline 1 spray each nostril q. 4 hours, saliva substitute i n the mouth as needed basis, vitamin A and D cream to affected area. Other medications have been dis continued. LABORATORY DATA: Shows hemoglobin 10.4; hematocrit 30.1; WBC 29,000; and platelet is 41. INR 1.22, PTT is 41. Blood gases shows pH 7.43, pCO2 of 26/64. This is on noninvasive ventilation at 65% oxyg en. Sodium 131, potassium 4.5, chloride 100, bicarbonate 21, BUN 76, creatinine 5.0, glucose 273, ca lcium 7.3, phosphorus 6.7, magnesium 2.2, AST 36, ALT 38, alkaline phosphatase is 141. Albumin is 2. 0. Chest x-ray done today shows bilateral infiltrate. IMPRESSION AND PLAN: Multiorgan failure, respiratory failure, pulmonary edema, pneumonia on noninvas luiz ventilation, cardiomyopathy, coronary artery disease, renal failure, dialysis dependent, peptic u lcer disease status post gastrointestinal bleed, atrial fibrillation, anemia. Case discussed with me dical resident who will speak to family. The patient has a very poor prognosis, DNR and DNI. We parker l suggest supportive care. I agree with Ativan and morphine. The family agrees. May discontinue no ninvasive ventilation, place on supplemental oxygen and make the patient comfortable. Thank you and will follow with you. Shawn Ruff MD cc: [id number] TT: 09/11/2016 21:17:10 Confirmation # [id number] Dictation # [id number] mn
--- NOTE | 2016-09-11 21:36 | CP.PCM.PRO ---
Pronouncement of Note - Clinical Findings Physical Exam: No Response Verbal/Painful Stimuli, Absent Peripheral Pulses{ Carotid & Femoral}, Absent Heart & Breath Sounds, No Pupillary Light Reflex, No Corneal Reflex, Pupils Fixed & Dilated, Absence of Vital Signs - Pronouncement Time Time of Pronouncement of : 21:05 - Notifications Pronouncement Notifications: Family Notified (Multiple family members are at bed side,made aware.), Atending Notified (Nurse will notify PMD.) Pocket Builder Notified: No - Autopsy Autopsy Requested: No - [place] [id number]
--- NOTE | 2016-09-11 23:05 | PN ---
DATE: 09/11/2016 ADDENDUM: This is an addendum to the GI progress report dictated by Breann Mayfield NP. The patient was seen and evaluated earlier and discussed with the resident. Tolerating the G-tube fe eding. The patient's platelet count is on the low side. Will cut down the PPI dose. 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 The patient is DNR/DNI. Prognosis is guarded. Eleonora Dillard MD cc: [id number] TT: 09/11/2016 23:04:27 Confirmation # [id number] Dictation # [id number] mn
[2016-09-12] MEDS ORDERED: Pantoprazole 20 mg EC Tab PO SCH (07:30)
--- NOTE | 2016-09-26 07:56 | DS ---
CHIEF COMPLAINTS: Shortness of breath, not feeling very well, GI bleeding. HISTORY OF PRESENT ILLNESS: The patient is an 81-year-old male, new for me, with past medical history of TIA, cardiac stent. Brought to the Emergency Room for left-sided weakness noted by the son. The patient was normal the night before admission. According to patient's son, son spent a day before his ER visit with the father and left him in [email or web address] building and today when patient came, the day of admission, found that father had left-sided weakness. The patient will not say when GI bleeding started, but has GI bleeding. The patient is disoriented. Actually son called the father on the phone. Father did not answer. Then, patient's son went to the house, found him lying down on the floor, unable to get up. We admitted the patient, did CAT scan of the head , CAT scan of the chest, abdomen and pelvis, abdominal ultrasound, was seen by Dr. Ruff, Dr. Jay, Dr. Dillard, Dr. Fuentes Palomino. The patient was intubated. Dr. Hernandez saw the patient. The patient was admitted in the ICU. Endoscopy was done. Seen by Dr. Dillard also for GI bleeding, seen by Dr. Jay and director of career resources. The patient went into multiorgan failure, has developed pulmonary edema, pneumonia. The patient was first intubated. When family decided, the patient's DNR was activated. Was on noninvasive ventilation , started renal failure and was started on dialysis, was making patient ready to transfer to LTAC and patient's family was informed that patient had poor prognosis, so patient was made DNR and DNI. Supportive care was provided. Ativan and morphine were given and family agreed to discontinue the noninvasive ventilation, was placed on supplemental oxygen and made the patient comfortable. Then patient on 09/11/2016. Family was aware. They were on the bedside. Body was released. PAST MEDICAL HISTORY: Hypertension, CVA, left-sided weakness, diabetes mellitus type 1, falls, BPH, carotid endarterectomy. FAMILY HISTORY: Father and mother noncontributory. HABITS: Former smoker, substance abuse no. ALLERGIES: The patient is not allergic with any medications. HOME MEDICATIONS: Amlodipine, Lipitor, Zestril. The patient was admitted on 08/16/2016. The patient was intubated, put him in the unit. Then was seen by intermediate school teacher, critical care, workforce advisor, infectious disease, GI. CAT scan of the chest, abdomen and pelvis and head was done. Made patient's family DNR. The patient had multiorgan failure and patient on 08/26/[address] Bach. No response verbal and painful stimuli, absent peripheral pulses, carotid and femoral, absent heart and breath sounds present, no pupillary light reflex, no corneal reflex. The pupils were fixed and dilated. Absence of vital signs. Time for pronounced was 2104. Family notified multiple times, members are not at bedside, made aware. certificate signed. Sana Myers MD cc: [id number] TT: 09/26/2016 07:56:25 en MTDD
--- NOTE | 2016-10-02 18:52 | VASCULAR ---
PROCEDURE: Ultrasound and fluoroscopic tunneled right IJ dialysis catheter. CLINICAL HISTORY: ESRD PHYSICIAN(S): Bashir Mejia M.D. TECHNIQUE: The relative risks and indications for the procedure were explained to the patient's family and informed written consent obtained. The patient was placed supine on the arteriography table and the right neck/chest was prepped and draped in the usual sterile fashion. 1% Xylocaine was used to anesthetize the skin and soft tissues at the puncture site. Conscious sedation and monitoring were provided throughout the procedure by a nurse. Under direct ultrasound guidance, the rightinternal jugular vein was punctured with a micropuncture set. A 0.035 Glidewire was advanced into the IVC. Sequential dilatation was performed with subsequent placement of a 24 cmCannon II catheter with its tip in the right atrium. A retrograde tunnel below the right clavicle was performed. The catheter was trimmed and the hub attached. Both ports aspirate and inject easily. The catheter was secured and a dressing applied. The patient tolerated the procedure well. IMPRESSION: 1. Ultrasound and fluoroscopically placed right IJ tunneled dialysis catheter.
== END 2016-09-11 21:05 | DRG 871 ==
LOC: ED 12:18 → ERH 14:33 → CCU 14:41 → ERH 14:58 → CCU 15:33
PROVIDERS: ADMIT Internal Medicine; ATTEND Internal Medicine
PROC: 30233N1 Transfusion of Nonautologous Red Blood Cells into Peripheral Vein, Percutaneous Approach (ICD-10-PCS; 2016-08-26)
PROC: 5A1945Z Respiratory Ventilation, 24-96 Consecutive Hours (ICD-10-PCS; 2016-08-27)
PROC: 0BH17EZ Insertion of Endotracheal Airway into Trachea, Via Natural or Artificial Opening (ICD-10-PCS; 2016-08-27)
PROC: 05HM33Z Insertion of Infusion Device into Right Internal Jugular Vein, Percutaneous Approach (ICD-10-PCS; 2016-08-28)
PROC: B543ZZA Ultrasonography of Right Jugular Veins, Guidance (ICD-10-PCS; 2016-08-28)
PROC: 0DJ08ZZ Inspection of Upper Intestinal Tract, Via Natural or Artificial Opening Endoscopic (ICD-10-PCS; 2016-08-28)
PROC: 5A1D60Z (ICD-10-PCS; 2016-08-31)
PROC: 0BH17EZ Insertion of Endotracheal Airway into Trachea, Via Natural or Artificial Opening (ICD-10-PCS; 2016-09-01)
PROC: 5A1945Z Respiratory Ventilation, 24-96 Consecutive Hours (ICD-10-PCS; 2016-09-01)
PROC: 4A023N7 Measurement of Cardiac Sampling and Pressure, Left Heart, Percutaneous Approach (ICD-10-PCS; principal; 2016-09-02)
PROC: B211YZZ Fluoroscopy of Multiple Coronary Arteries using Other Contrast (ICD-10-PCS; 2016-09-02)
PROC: B215YZZ Fluoroscopy of Left Heart using Other Contrast (ICD-10-PCS; 2016-09-02)
PROC: 5A09557 Assistance with Respiratory Ventilation, Greater than 96 Consecutive Hours, Continuous Positive Airway Pressure (ICD-10-PCS; 2016-09-03)
PROC: 02HV33Z Insertion of Infusion Device into Superior Vena Cava, Percutaneous Approach (ICD-10-PCS; 2016-09-04)
PROC: B548ZZA Ultrasonography of Superior Vena Cava, Guidance (ICD-10-PCS; 2016-09-04)
PROC: 0DH68UZ Insertion of Feeding Device into Stomach, Via Natural or Artificial Opening Endoscopic (ICD-10-PCS; 2016-09-08)
DX: A41.9 Sepsis, unspecified organism (principal); J96.01 Acute respiratory failure with hypoxia; N17.0 Acute kidney failure with tubular necrosis; R57.0 Cardiogenic shock; I21.4 Non-ST elevation (NSTEMI) myocardial infarction; J69.0 Pneumonitis due to inhalation of food and vomit; N18.6 End stage renal disease; T81.19XA Other postprocedural shock, initial encounter; D69.3 Immune thrombocytopenic purpura; K25.4 Chronic or unspecified gastric ulcer with hemorrhage; K75.9 Inflammatory liver disease, unspecified; I42.0 Dilated cardiomyopathy; E43 Unspecified severe protein-calorie malnutrition; I50.21 Acute systolic (congestive) heart failure; D62 Acute posthemorrhagic anemia; E87.2 Acidosis; N17.9 Acute kidney failure, unspecified; I13.2 Hypertensive heart and chronic kidney disease with heart failure and with stage 5 chronic kidney disease, or end stage renal disease; I69.354 Hemiplegia and hemiparesis following cerebral infarction affecting left non-dominant side; I48.92 Unspecified atrial flutter; J98.11 Atelectasis; M62.82 Rhabdomyolysis; N25.81 Secondary hyperparathyroidism of renal origin; T80.211A Bloodstream infection due to central venous catheter, initial encounter; I48.1 Persistent atrial fibrillation; E87.8 Other disorders of electrolyte and fluid balance, not elsewhere classified; E87.5 Hyperkalemia; E86.0 Dehydration; D50.0 Iron deficiency anemia secondary to blood loss (chronic); E83.39 Other disorders of phosphorus metabolism; D63.1 Anemia in chronic kidney disease; D73.5 Infarction of spleen; E78.5 Hyperlipidemia, unspecified; E83.51 Hypocalcemia; E87.6 Hypokalemia; G47.30 Sleep apnea, unspecified; I08.1 Rheumatic disorders of both mitral and tricuspid valves; I69.398 Other sequelae of cerebral infarction; I25.10 Atherosclerotic heart disease of native coronary artery without angina pectoris; N40.0 Benign prostatic hyperplasia without lower urinary tract symptoms; R13.10 Dysphagia, unspecified; I25.5 Ischemic cardiomyopathy; R65.20 Severe sepsis without septic shock; Y84.8 Other medical procedures as the cause of abnormal reaction of the patient, or of later complication, without mention of misadventure at the time of the procedure; Y95 Nosocomial condition; R62.7 Adult failure to thrive; Z66 Do not resuscitate; Z79.4 Long term (current) use of insulin; Z79.84 Long term (current) use of oral hypoglycemic drugs; Z79.899 Other long term (current) drug therapy; Z82.0 Family history of epilepsy and other diseases of the nervous system; Z87.01 Personal history of pneumonia (recurrent); K27.9 Peptic ulcer, site unspecified, unspecified as acute or chronic, without hemorrhage or perforation; I25.2 Old myocardial infarction; I25.82 Chronic total occlusion of coronary artery; I27.2 Other secondary pulmonary hypertension; I48.0 Paroxysmal atrial fibrillation; I48.2 Chronic atrial fibrillation; J44.9 Chronic obstructive pulmonary disease, unspecified; K22.70 Barrett's esophagus without dysplasia; E10.22 Type 1 diabetes mellitus with diabetic chronic kidney disease; E10.51 Type 1 diabetes mellitus with diabetic peripheral angiopathy without gangrene; E10.65 Type 1 diabetes mellitus with hyperglycemia; K76.0 Fatty (change of) liver, not elsewhere classified; K80.20 Calculus of gallbladder without cholecystitis without obstruction; Z87.19 Personal history of other diseases of the digestive system; Z87.891 Personal history of nicotine dependence; Z91.81 History of falling; Z95.5 Presence of coronary angioplasty implant and graft; I95.9 Hypotension, unspecified; S40.812A Abrasion of left upper arm, initial encounter; D47.3 Essential (hemorrhagic) thrombocythemia; K64.4 Residual hemorrhoidal skin tags; I51.7 Cardiomegaly; Z99.2 Dependence on renal dialysis; R40.2412 Glasgow coma scale score 13-15, at arrival to emergency department; G93.0 Cerebral cysts; D32.0 Benign neoplasm of cerebral meninges; Z98.42 Cataract extraction status, left eye; Z98.41 Cataract extraction status, right eye